=== PATIENT | female | born 1965 | race Caucasian/White ===

== ENCOUNTER 2018-04-13 08:16 | Outpatient (CLI) | payer BC ==
--- NOTE | 2018-04-13 13:35 | CT ---
CT ABDOMEN AND PELVIS WITH CONTRAST: CT ENTEROGRAPHY: CLINICAL HISTORY: History of Crohn disease. Abdominal pain. COMPARISON: No prior imaging comparison available. FINDINGS: There is evidence of hepatic steatosis and prior cholecystectomy. No focal splenic lesion or acute p ancreatic pathology. The adrenal glands are unremarkable. There is no hydronephrosis of the kidneys . Evaluation of the renal parenchyma is somewhat limited due to the phase of enhancement on the prov ided scans. There is mild scattered vascular disease. No free air or significant ascites. There is colonic diverticulosis. The fluid-filled small bowel reveals no evidence of abnormal disten tion. There is submucosal fat deposition involving the region of the terminal ileum and the cecum, i ndicative of sequela from prior inflammatory process. No discrete, acute bowel inflammation is ident ified. There are subtle areas of alveolar lucency of the imaged lung bases that suggest pulmonary em physema. Correlate clinically. No acute osseous pathology. IMPRESSION: 1. Submucosal fat deposition within the terminal small bowel and proximal colon, indicating sequela from prior inflammatory process. There is no discrete evidence of an acute inflammatory bowel proces s. There is no bowel obstruction or free air. 2. Colonic diverticulosis. 3. Additional details are described above. POS: [facility]
[2018-04-13] MEDS ORDERED: Iopamidol 370 76% 100 ML VIAL ONE (16:29)
== END 2018-04-13 08:17 | disposition home or self-care (01) ==
LOC: CT 08:16
PROVIDERS: ATTEND Internal Medicine Gastroenterology
DX: K56.699 Other intestinal obstruction unspecified as to partial versus complete obstruction (principal); K57.30 Diverticulosis of large intestine without perforation or abscess without bleeding; K63.89 Other specified diseases of intestine
CPT/HCPCS: 74177; 82565

== ENCOUNTER 2018-06-10 06:21 | Outpatient (CLI) | payer BC ==
[2018-06-10 11:15] LABS: #Basophils 0.1 thou/uL (0.0-0.2); #Eosinphils 0.2 thou/uL (0.0-0.7); #Lymphocytes 3.6 thou/uL (1.20-3.40); #Monocytes 0.7 thou/uL (0.11-0.59); #Neutrophils 4.7 thou/uL (1.40-6.50); %Basophils 1.2 % (0.0-1.0); %Eosinophils 2.1 % (0.0-10.0); %Monocytes 7.1 % (0.0-10.0); %Neutrophils 50.6 % (42.0-75.0); Hemoglobin 14.8 g/dL (12.0-16.0); Mean Corpuscular HGB CONC 33.9 g/dL (32.0-36.0); Mean Corpuscular Hemoglobin 32.5 pg (27.0-31.0); Mean Corpuscular Volume 95.8 fL (78.0-98.0); Mean Platelet Volume 7.1 fL (7.4-10.4); Platelet Count 388 thou/uL (130-400); RBC Distribution Width 11.1 % (11.5-14.5); Red Blood Cell (RBC) Count 4.57 mill/uL (4.20-5.40); White Blood Cell (WBC) Count 9.2 thou/uL (4.8-10.8)
[2018-06-10 11:34] LABS: Anion Gap 12 mmol/L (10-20); BUN (Urea Nitrogen) 5 mg/dL (9.8-20.1); Calc. Creatinine Clearance 0 mL/min (70-130); Calcium 9.2 mg/dL (7.8-10.44); Carbon Dioxide 27 mmol/L (22-29); Chloride 103 mmol/L (98-107); Estimated GFR-MDRD 81; Glucose 85 mg/dL (70-105); Potassium 3.7 mmol/L (3.5-5.1); Sodium 138 mmol/L (136-145)
[2018-06-10 12:14] LABS: Hemoglobin A1c 5.2 % (4.0-6.0)
== END 2018-06-10 06:22 | disposition home or self-care (01) ==
LOC: LABBT 06:21
PROVIDERS: ATTEND Surgery
DX: Z01.812 Encounter for preprocedural laboratory examination (principal); K50.90 Crohn's disease, unspecified, without complications
CPT/HCPCS: 80048; 83036; 85025

== ENCOUNTER 2018-06-10 10:00 | Inpatient (IN) | payer BC ==
[2018-06-10 10:56] VITALS: BMI 22.4
[2018-06-16] MEDS ORDERED: Midazolam HCl 2 mg/2 ml Vial ONE ×2 (07:33→09:28)
[2018-06-16] MEDS ORDERED: Fentanyl 100 MCG/2 ML VIAL ONE ×3 (07:33→12:09)
[2018-06-16] MEDS ORDERED: Dexamethasone 4 mg/ml Vial ONE (07:34)
[2018-06-16] MEDS ORDERED: CEFAZOLIN 2 GM/50 ML BAG ONE (07:48)
[2018-06-16] MEDS ORDERED: Lidocaine 1% (PF) 30 ML VIAL ONE (07:48)
[2018-06-16] MEDS ORDERED: Ondansetron HCl/PF 4 MG/2 ML Vial IVP PRN (11:19)
[2018-06-16] MEDS ORDERED: Promethazine HCl 25 MG/ML VIAL IM PRN ×2 (11:19→14:32)
[2018-06-16] MEDS ORDERED: Promethazine HCl 25 MG/ML VIAL SLOW IVP PRN (11:19)
[2018-06-16] MEDS ORDERED: Bupivacaine HCl 0.5%/Epinephrine 1:200,000/PF 30 ml Vial ONE (13:51)
[2018-06-16] MEDS ORDERED: hydrALAZINE 20 MG/ML VIAL SLOW IVP PRN (14:32)
[2018-06-16] MEDS ORDERED: Ondansetron PF 4 MG/2 ML Vial IVP PRN (14:32)
[2018-06-16] MEDS ORDERED: Fentanyl 100 MCG/2 ML VIAL SLOW IVP PRN ×2 (14:32)
[2018-06-16] MEDS ORDERED: Acetaminophen 1,000 MG in Premix Bag 1 BAG IVPB SCH (14:32)
[2018-06-16] MEDS ORDERED: Lidocaine 1% PF 5 ML VIAL ONE (14:42)
[2018-06-16] MEDS ORDERED: Dexamethasone 20 MG/5 ML VIAL ONE (14:42)
[2018-06-16] MEDS ORDERED: Ketorolac Tromethamine 30 MG/ML VIAL ONE (14:42)
[2018-06-16] MEDS ORDERED: Rocuronium Bromide 10 MG/ML (10ML VIAL) ONE (14:42)
[2018-06-16] MEDS ORDERED: Ondansetron PF 4 MG/2 ML Vial ONE (14:42)
[2018-06-16] MEDS ORDERED: PHENYLEPHRINE-NS 100 MCG/ML 10 ML SYRINGE ONE (14:42)
[2018-06-16] MEDS ORDERED: PROPOFOL 200 MG/20 ML VIAL ONE (14:42)
[2018-06-16] MEDS: D5 1/2 NS w/20 mEq KCL 1,000 ML IV SCH (15:24)
[2018-06-16] MEDS: Acetaminophen 1,000 MG in Premix Bag 1 BAG IVPB SCH ×2 (15:24→20:19)
[2018-06-16] MEDS: HYDROcodone/Acetaminophen 7.5/325 mg Tablet PO PRN (17:28)
[2018-06-16] MEDS: Famotidine 20 MG TAB PO SCH (20:18)
[2018-06-16] MEDS: Famotidine/PF 20 mg/2ml Vial SLOW IVP SCH (20:19)
[2018-06-16] MEDS: traZODone HCl 50 MG TAB PO SCH (20:19)
[2018-06-16] MEDS ORDERED: Enoxaparin Sodium 40 MG/0.4 ML SYRINGE SC SCH (21:00)
[2018-06-17] MEDS: Acetaminophen 1,000 MG in Premix Bag 1 BAG IVPB SCH ×4 (02:06→21:48)
[2018-06-17] MEDS: D5 1/2 NS w/20 mEq KCL 1,000 ML IV SCH (06:20)
[2018-06-17 06:51] LABS: Anion Gap 12 mmol/L (10-20); BUN (Urea Nitrogen) 14 mg/dL (9.8-20.1); Calc. Creatinine Clearance 77 mL/min (70-130); Calcium 8.4 mg/dL (7.8-10.44); Carbon Dioxide 23 mmol/L (22-29); Chloride 105 mmol/L (98-107); Estimated GFR-MDRD 89; Glucose 121 mg/dL (70-105); Sodium 136 mmol/L (136-145)
[2018-06-17 07:43] LABS: Hemoglobin 11.4 g/dL (12.0-16.0); Mean Corpuscular HGB CONC 34.2 g/dL (32.0-36.0); Mean Corpuscular Hemoglobin 33.1 pg (27.0-31.0); Mean Corpuscular Volume 96.7 fL (78.0-98.0); Mean Platelet Volume 7.5 fL (7.4-10.4); Platelet Count 325 thou/uL (130-400); Red Blood Cell (RBC) Count 3.46 mill/uL (4.20-5.40); White Blood Cell (WBC) Count 23.5 thou/uL (4.8-10.8)
[2018-06-17 07:45] LABS: Band 27 % (5-11); Lymphocytes 6 % (21-51); MDiff Complete? YES; Neutrophil 62 % (42-75); RBC Morphology Normal; Reactive Lymphocytes 5 % (0-10)
[2018-06-17] MEDS: Famotidine 20 MG TAB PO SCH ×2 (08:50→20:20)
[2018-06-17] MEDS: Escitalopram Oxalate 20 mg Tablet PO SCH (08:50)
[2018-06-17] MEDS: Famotidine/PF 20 mg/2ml Vial SLOW IVP SCH ×2 (11:40→20:59)
[2018-06-17] MEDS: HYDROcodone/Acetaminophen 7.5/325 mg Tablet PO PRN (12:38)
[2018-06-17] MEDS ORDERED: HYDROcodone/Acetaminophen 7.5/325 mg Tablet PO PRN (13:00)
--- NOTE | 2018-06-17 14:15 | PRG ---
DATE OF SERVICE: 06/17/2018 SUBJECTIVE: Ms. Kwan is having nausea this afternoon. She has had a couple of bloody bowel movements. She is complaining of abdominal pain. OBJECTIVE: VITAL SIGNS: Blood pressure is 117/78, pulse 106, respirations 16. She is afebrile, although she says she feels hot. She has had multiple voids, few small bowel movements with blood in them. ABDOMEN: Her abdomen is soft. Her wound is healing well. She has occasional bowel sounds, appropriately tender. LABORATORY DATA: Her white blood cell count today is 23, hemoglobin is 11, platelet count is 325. She had 27 bands this morning, creatinine 0.69. ASSESSMENT: Postop day #1 ileocecectomy. PLAN: I encouraged her to slow down on the liquids, provided WASH RACK OPERATOR for pain control. Held Lovenox tonight. I suspect her blood per rectum will improve. Job ID: [id number]
[2018-06-17] MEDS ORDERED: Ketorolac Tromethamine 30 MG/ML VIAL IVP SCH (15:45)
[2018-06-17] MEDS: fentaNYL Citrate/PF 2,000 MCG in Sodium Chloride 0.9% 60 ML IV PRN (16:06)
[2018-06-17] MEDS: traZODone HCl 50 MG TAB PO SCH (20:20)
--- NOTE | 2018-06-17 21:18 | OP ---
DATE OF PROCEDURE: 06/16/2018 PREOPERATIVE DIAGNOSIS: Crohn's disease with stricture with dysplastic changes on biopsy. POSTOPERATIVE DIAGNOSIS: Crohn's disease with stricture with dysplastic changes on biopsy. PROCEDURE PERFORMED: Open ileocecectomy. ANESTHESIA: General. ESTIMATED BLOOD LOSS: Minimal. COMPLICATIONS: None. FINDINGS: Distal small intestine approximately the last 10 cm had Crohn's type changes and palpable stricture. DESCRIPTION OF PROCEDURE: The patient was taken to the operating room and laid supine on the operating room table. After general anesthetic was obtained, a Sanders was placed. The abdomen was prepped and draped in a sterile fashion. Midline incision was made. Cautery was used to dissect down into the abdominal cavity. Bookwalter retractor was placed. The right colon was mobilized along the white line of Toldt. The ureter was found excluded from the dissection as was the duodenum. There were Crohn's type changes in the distal-most ileum approximate last 10 cm with fat creeping. Just proximal to this, a CONOR 75 stapler was fired across the small intestine. There were no evidence of Crohn's changes in the cecum and the ascending colon. The CONOR 75 stapler was fired across the ascending colon. The resultant mesentery was taken using Yaquelin clamps and silk ties. The small bowel was brought together against ascending colon in an antimesenteric fashion. Enterotomy was made on the end of each and the [id number] anastomosis was performed using CONOR 75. The common enterotomy was closed using running Vicryl suture in 2 layers. A crotch stitch was placed. The mesenteric defect was closed. The abdomen was irrigated. All instrument counts were correct. There was no evidence of bleeding or injury to any intraabdominal structures. Midline fascia was closed using #1 PDS from top to bottom and tied in the middle. Subcutaneous tissues were irrigated and closed using 3-0 Vicryl, 4-0 Monocryl, and Dermabond. The patient was sent to Recovery in stable condition. All instrument counts, needle counts, and lap counts are correct. Job ID: [id number]
[2018-06-17] MEDS ORDERED: Ketorolac Tromethamine 30 MG/ML VIAL IVP PRN (21:45)
[2018-06-18] MEDS: D5 1/2 NS w/20 mEq KCL 1,000 ML IV SCH ×2 (03:08→18:43)
[2018-06-18] MEDS: Acetaminophen 1,000 MG in Premix Bag 1 BAG IVPB SCH ×3 (03:47→18:42)
[2018-06-18 06:15] LABS: #Eosinphils 0.1 thou/uL (0.0-0.7); #Lymphocytes 1.9 thou/uL (1.20-3.40); #Monocytes 0.9 thou/uL (0.11-0.59); #Neutrophils 17.3 thou/uL (1.40-6.50); %Eosinophils 0.3 % (0.0-10.0); %Lymphocytes 9.5 % (21.0-51.0); %Monocytes 4.5 % (0.0-10.0); %Neutrophils 85.7 % (42.0-75.0); Hemoglobin 11.1 g/dL (12.0-16.0); Mean Corpuscular HGB CONC 33.7 g/dL (32.0-36.0); Mean Platelet Volume 7.6 fL (7.4-10.4); Platelet Count 304 thou/uL (130-400); RBC Distribution Width 11.3 % (11.5-14.5); Red Blood Cell (RBC) Count 3.37 mill/uL (4.20-5.40); White Blood Cell (WBC) Count 20.2 thou/uL (4.8-10.8)
[2018-06-18 06:33] LABS: Anion Gap 9 mmol/L (10-20); BUN (Urea Nitrogen) 16 mg/dL (9.8-20.1); Calc. Creatinine Clearance 81 mL/min (70-130); Calcium 8.6 mg/dL (7.8-10.44); Carbon Dioxide 26 mmol/L (22-29); Chloride 103 mmol/L (98-107); Estimated GFR-MDRD Greater than 90; Glucose 121 mg/dL (70-105); Potassium 4.1 mmol/L (3.5-5.1); Sodium 134 mmol/L (136-145)
--- NOTE | 2018-06-18 09:12 | PRG ---
DATE OF SERVICE: 06/18/2018 Ms. Kwan is postop day 2, ileocecectomy for Crohn disease. She has had occasional nausea and small amounts of vomit. She has a cough. She is not getting out of bed much. She has a LEATHER SORTER that is controlling her abdominal pain better. Her pulse is 105, respirations are 20, O2 saturation is 92% on 2.5 L, temperature 97.9, blood pressure is fine. Multiple voids. Total of 450 emesis for the last 24 hours. Her abdomen is soft. It is distended. There are occasional bowel sounds. Midline wound is healing well. There is slight ecchymosis. White blood cell count today is 20, hemoglobin 11, platelet count is 304. Differential is normal today, the differential shows no bands today. Creatinine 0.65, sodium 134. ASSESSMENT: 1. Postop day 2 ileocecectomy, borderline sats, concern for maybe some volume overload. We will treat with Lasix, lower IV fluids. 2. Persistent expected postop ileus. If continues to vomit, we will place NG tube. 3. History of bright red blood per rectum, likely bleeding from staple line, has pretty much resolved. Hemoglobin is stable. I held her Lovenox. Job ID: [id number]
[2018-06-18] MEDS: Escitalopram Oxalate 20 mg Tablet PO SCH (09:49)
[2018-06-18] MEDS: Famotidine/PF 20 mg/2ml Vial SLOW IVP SCH ×2 (09:49→22:33)
[2018-06-18] MEDS: Famotidine 20 MG TAB PO SCH ×2 (09:50→22:31)
[2018-06-18] MEDS: Furosemide 20 MG/2 ML VIAL SLOW IVP SCH (09:50)
--- NOTE | 2018-06-18 13:01 | RAD ---
PORTABLE CHEST: HISTORY: Assess for TB. COMPARISON: 12/05/2009. FINDINGS: Increased interstitial markings in the left lung base and mild increased interstitial markings in the right lung base. This is new when compared to the prior exam of 2009. Vascular markings are normal. Mild hypoexpansion suggests changes of COPD. Heart size normal. IMPRESSION: Interstitial prominence in the lung bases may be chronic. Part of this may be due to crowding of jeb g markings due to early emphysematous change in the upper lung kennedy. Recommend short-term followup . Correlation with noncontrast chest CT may be of benefit as indicated. POS: [facility]
[2018-06-18] MEDS: traZODone HCl 50 MG TAB PO SCH (22:31)
[2018-06-19 06:08] LABS: #Eosinphils 0.1 thou/uL (0.0-0.7); #Lymphocytes 1.5 thou/uL (1.20-3.40); #Monocytes 1.1 thou/uL (0.11-0.59); #Neutrophils 8.9 thou/uL (1.40-6.50); %Eosinophils 0.7 % (0.0-10.0); %Lymphocytes 13.1 % (21.0-51.0); %Monocytes 9.8 % (0.0-10.0); %Neutrophils 76.3 % (42.0-75.0); Mean Corpuscular HGB CONC 33.7 g/dL (32.0-36.0); Mean Corpuscular Hemoglobin 33.1 pg (27.0-31.0); Mean Corpuscular Volume 98.1 fL (78.0-98.0); Mean Platelet Volume 7.6 fL (7.4-10.4); Platelet Count 331 thou/uL (130-400); RBC Distribution Width 11.2 % (11.5-14.5); Red Blood Cell (RBC) Count 3.31 mill/uL (4.20-5.40); White Blood Cell (WBC) Count 11.6 thou/uL (4.8-10.8)
[2018-06-19] MEDS: D5 1/2 NS w/20 mEq KCL 1,000 ML IV SCH ×2 (06:14→17:27)
[2018-06-19 06:29] LABS: Anion Gap 9 mmol/L (10-20); BUN (Urea Nitrogen) 15 mg/dL (9.8-20.1); Calc. Creatinine Clearance 79 mL/min (70-130); Calcium 8.9 mg/dL (7.8-10.44); Carbon Dioxide 30 mmol/L (22-29); Chloride 101 mmol/L (98-107); Estimated GFR-MDRD Greater than 90; Glucose 125 mg/dL (70-105); Potassium 4.5 mmol/L (3.5-5.1); Sodium 135 mmol/L (136-145)
[2018-06-19] MEDS: Furosemide 20 MG/2 ML VIAL SLOW IVP SCH ×2 (08:44→08:52)
[2018-06-19] MEDS: Famotidine/PF 20 mg/2ml Vial SLOW IVP SCH ×2 (08:45→21:45)
[2018-06-19] MEDS: Famotidine 20 MG TAB PO SCH ×2 (09:02→21:45)
[2018-06-19] MEDS: Escitalopram Oxalate 20 mg Tablet PO SCH (09:02)
[2018-06-19] MEDS ORDERED: Acetaminophen 1,000 MG in Premix Bag 1 BAG IVPB PRN (09:30)
--- NOTE | 2018-06-19 09:46 | PRG ---
DATE OF SERVICE: 06/19/2018 SUBJECTIVE: Ms. Kwan states she feels slightly improved today. She still has not ambulated in the manuel. She had a couple of bowel movements yesterday, not really passing much gas. OBJECTIVE: VITAL SIGNS: She remains slightly tachy with a pulse 103, blood pressure 116/74, respirations 20, she is afebrile. Multiple voids. Gastric draining 700 overnight. ABDOMEN: Slightly distended with decreasing bowel sounds throughout. Midline incision seen well without infection. LABORATORY DATA: White blood cell count is 11, hemoglobin 11, platelet count is 331. No left shift or bandemia today. Sodium 135, potassium 4.5, and creatinine 0.67. ASSESSMENT: Postop day #3, ileocecectomy, slow improvement. Encouraged ambulation. She needs to be out in the manuel. I do think that her lack of mobility is contributing to her persistent expected postop ileus. We will keep the NG tube in now and reassess later today for better bowel sounds and less NG output. Job ID: [id number]
[2018-06-19] MEDS: traZODone HCl 50 MG TAB PO SCH (21:46)
[2018-06-19] MEDS ORDERED: Furosemide 20 MG/2 ML VIAL SLOW IVP SCH (23:00)
[2018-06-20] MEDS: D5 1/2 NS w/20 mEq KCL 1,000 ML IV SCH (04:51)
[2018-06-20 06:09] LABS: #Eosinphils 0.1 thou/uL (0.0-0.7); #Lymphocytes 1.4 thou/uL (1.20-3.40); #Monocytes 1.4 thou/uL (0.11-0.59); #Neutrophils 7.8 thou/uL (1.40-6.50); %Basophils 0.2 % (0.0-1.0); %Eosinophils 0.8 % (0.0-10.0); %Lymphocytes 12.9 % (21.0-51.0); %Monocytes 12.6 % (0.0-10.0); %Neutrophils 73.5 % (42.0-75.0); Hemoglobin 11.2 g/dL (12.0-16.0); Mean Corpuscular HGB CONC 34.2 g/dL (32.0-36.0); Mean Corpuscular Hemoglobin 33.5 pg (27.0-31.0); Mean Corpuscular Volume 97.9 fL (78.0-98.0); Mean Platelet Volume 7.7 fL (7.4-10.4); Platelet Count 392 thou/uL (130-400); RBC Distribution Width 11.1 % (11.5-14.5); Red Blood Cell (RBC) Count 3.35 mill/uL (4.20-5.40); White Blood Cell (WBC) Count 10.7 thou/uL (4.8-10.8)
[2018-06-20 06:20] LABS: Anion Gap 12 mmol/L (10-20); BUN (Urea Nitrogen) 9 mg/dL (9.8-20.1); Calc. Creatinine Clearance 84 mL/min (70-130); Calcium 9.2 mg/dL (7.8-10.44); Carbon Dioxide 33 mmol/L (22-29); Chloride 95 mmol/L (98-107); Estimated GFR-MDRD Greater than 90; Glucose 118 mg/dL (70-105); Potassium 4.2 mmol/L (3.5-5.1); Sodium 136 mmol/L (136-145)
[2018-06-20] MEDS: fentaNYL Citrate/PF 2,000 MCG in Sodium Chloride 0.9% 60 ML IV PRN (06:33)
[2018-06-20 07:55] LABS: Base Excess (BEa) 3.2 mEq/L (-2.0 to +3.0); CO2 Tension 50.1 mmHg (35.0-45.0); Calcium, Ionized 1.16 mmol/L (1.12-1.30); Carboxyhemoglobin (COHb) 0.7 gm% (0.0-3.0); Hemoglobin (Hb) 11.5 g/dL (12.0-16.0); Potassium - ABG Lab 4.11 mmol/L (3.70-5.30); pH, Arterial 7.38 (7.35-7.45)
[2018-06-20 07:57] LABS: O2 Tension (PaO2) 53.5 mmHg (80.0-100.0)
[2018-06-20 07:58] LABS: ALV-art Gradient 112.035 (0-20); Puncture Site RR
[2018-06-20] MEDS: Escitalopram Oxalate 20 mg Tablet PO SCH (08:42)
[2018-06-20] MEDS: Famotidine 20 MG TAB PO SCH ×2 (08:42→20:55)
[2018-06-20] MEDS: Famotidine/PF 20 mg/2ml Vial SLOW IVP SCH ×2 (08:49→20:55)
--- NOTE | 2018-06-20 09:13 | RAD ---
FRONTAL VIEW CHEST: Comparison: 06-18-18 Indication: Shortness of breath. FINDINGS: There is relative lucency at the upper lung zones. This indicates pulmonary emphysema. No lobar conso lidation, effusion, or pneumothorax. Cardiac silhouette is normal in size. IMPRESSION: Findings indicate COPD with relative lucency at the upper lung zones bilaterally, similar in appearan ce. POS: [facility]
--- NOTE | 2018-06-20 09:26 | PDOC.GSPN ---
Surgery Progress Note: Subj - Subjective Narrative: Patient more tachypneic, lower sats this am. Consulted hospitalist. No nausea. She had two bowel movements yesterday Surgery Progress Note: Obj - Vital signs Vital signs: Vital Signs - Most Recent Temp Pulse Resp BP Pulse Ox 98.0 F 97 16 138/84 96 06/20/18 08:08 06/20/18 08:08 06/20/18 08:08 06/20/18 08:08 06/20/18 08:08 - Physical Exam General: no distress Cardiovascular: regular rate and rhythm Respiratory: coarse breath sounds Abdomen: soft (minimal distended. Active bowel sounds) Wound: healing well Surgery Progress Note: Results - Labs Result Diagrams: 06/20/18 05:32 06/20/18 05:32 Lab results: Laboratory Results - last 24 hr 06/20/18 06/20/18 06/20/18 05:32 05:32 07:42 WBC 10.7 RBC 3.35 L Hgb 11.2 L Hct 32.8 L MCV 97.9 MCH 33.5 H MCHC 34.2 RDW 11.1 L Plt Count 392 MPV 7.7 Neutrophils % 73.5 Lymphocytes % 12.9 L Monocytes % 12.6 H Eosinophils % 0.8 Basophils % 0.2 Neutrophils # 7.8 H Lymphocytes # 1.4 Monocytes # 1.4 H Eosinophils # 0.1 Basophils # 0.0 Specimen Type ARTERIAL Puncture Site RR Bicarbonate Actual 29.0 H ABG pH 7.38 ABG pCO2 50.1 H ABG pO2 53.5 L* ABG O2 Sat Calc/Alex 87.4 L ABG O2 Content 14.0 L ABG Base Excess 3.2 H ABG Hematocrit 34.0 L ABG Hemoglobin 11.5 L ABG Oxyhemoglobin 86.5 L ABG Carboxyhemoglobin 0.7 ABG Methemoglobin 0.30 ABG Deoxyhemoglobin 12.5 H Rodolfo Test POSITIVE A-a O2 Gradient 112.035 H Ionized Calcium 1.16 Mode of Support 3LNC Inspired O2 32 Sodium 136 132 L Potassium 4.2 4.11 Chloride 95 L 95 L Carbon Dioxide 33 H Anion Gap 12 BUN 9 L Creatinine 0.63 Estimated GFR (MDRD) Greater than 90 Glucose 118 H Calcium 9.2 Surgery Progress Note: A/P - Problem (1) Crohn's disease Current Visit: No Code(s): K50.90 - CROHN'S DISEASE, UNSPECIFIED, WITHOUT COMPLICATIONS Status: Acute Assessment and Plan: s/p ileo cecectomy. Will restart liquid diet, she has active bowel sounds and having bowel movements. WBC normal (2) Respiratory distress Current Visit: Yes Code(s): R06.03 - ACUTE RESPIRATORY DISTRESS Status: Acute Assessment and Plan: Likely secondary to underlying COPD. Appreciated hospitalist assistance in her care - Plan Plan: Full liquid diet -Appreciate hospitalist assistance -Mobilize more when breathing improves
[2018-06-20] MEDS: Benzonatate 100 MG CAP PO SCH ×3 (09:28→20:54)
[2018-06-20] MEDS: guaiFENesin ER 600 MG TAB PO SCH ×2 (09:28→20:54)
[2018-06-20] MEDS ORDERED: traMADol HCl 50 MG TAB PO PRN (09:30)
[2018-06-20] MEDS ORDERED: D5 1/2 NS w/20 mEq KCL 1,000 ML IV SCH (09:30)
--- NOTE | 2018-06-20 14:17 | PDOC.PN ---
- Subjective Encounter Start Date: 06/20/18 Encounter Start Time: 08:20 Subjective: has sob and wheezing -: no chest pain - Objective MAR Reviewed: Yes Vital Signs & Weight: Vital Signs (12 hours) Temp Pulse Resp BP Pulse Ox 06/20/18 12:02 97.8 F 109 H 15 122/76 94 L 06/20/18 11:06 111 H 20 06/20/18 08:08 98.0 F 97 16 138/84 96 06/20/18 08:03 96 06/20/18 07:28 101 H 22 H 96 06/20/18 04:21 97.9 F 107 H 20 123/77 96 Weight Weight 115 lb I&O: 06/19/18 06/20/18 06/21/18 06:59 06:59 06:59 Intake Total 840 840 Output Total 110 1000 1100 Balance -110 -160 -260 Result Diagrams: 06/20/18 05:32 06/20/18 05:32 Phys Exam - Physical Examination HEENT: PERRLA, sclera anicteric dry mucosa Neck: no JVD, supple Respiratory: no rales, wheezing present Cardiovascular: RRR, no significant murmur Gastrointestinal: soft, no distention surgical site is clean Musculoskeletal: no edema, pulses present Neurological: non-focal, moves all 4 limbs Psychiatric: A&O x 3 Dx/Plan (1) Acute respiratory failure with hypoxia Code(s): J96.01 - ACUTE RESPIRATORY FAILURE WITH HYPOXIA Status: Acute (2) COPD exacerbation Code(s): J44.1 - CHRONIC OBSTRUCTIVE PULMONARY DISEASE W (ACUTE) EXACERBATION Status: Acute (3) GERD (gastroesophageal reflux disease) Code(s): K21.9 - GASTRO-ESOPHAGEAL REFLUX DISEASE WITHOUT ESOPHAGITIS Status: Chronic Qualifiers: Esophagitis presence: esophagitis presence not specified Qualified Code(s) : K21.9 - Gastro-esophageal reflux disease without esophagitis (4) Depression Code(s): F32.9 - MAJOR DEPRESSIVE DISORDER, SINGLE EPISODE, UNSPECIFIED Status : Chronic Qualifiers: Depression Type: major depressive disorder Active/Remission status: in full remission (5) Crohn's disease Code(s): K50.90 - CROHN'S DISEASE, UNSPECIFIED, WITHOUT COMPLICATIONS Status: Acute Comment: s/p ileocecectomy for stricture and dyslplastic changes on biopsy - Plan will start her solumedrol, duonebs empiric levaquin -: is on clear liq diet -: suggest gentle iv hydration (has recieved lasix prior 2 days) -: has laryngits/hoarseness due to intubation for surgery, ?racemic epinephrin -: will obtain pulm consultation with potential for worsoning due to abd surge * . oob to chair and amb as tolerated, i.spirometry as tolerated. Was on Humira prior to surgery for Crohn's Review of Systems - Medications/Allergies Allergies/Adverse Reactions: Allergies Allergy/AdvReac Type Severity Reaction Status Date / Time No Known Drug Allergies Allergy Verified 06/10/18 10:23 Medications: Current Medications Albuterol/Ipratropium (Duoneb) 3 ml NEB [id number] [facility] Last Admin: 06/20/18 11:06 Dose: 3 ml Benzonatate (Tessalon) 100 mg PO TID [facility] Last Admin: 06/20/18 09:28 Dose: 100 mg Escitalopram Oxalate (Lexapro) 20 mg PO DAILY [facility] Last Admin: 06/20/18 08:42 Dose: 20 mg Famotidine (Pepcid) 20 mg PO Q12HR [facility] Last Admin: 06/20/18 08:42 Dose: 20 mg Famotidine (Pepcid) 20 mg SLOW IVP Q12HR [facility] Last Admin: 06/20/18 08:49 Dose: Not Given Guaifenesin (Mucinex) 600 mg PO Q12HR [facility] Last Admin: 06/20/18 09:28 Dose: 600 mg Hydralazine HCl (Apresoline) 10 mg SLOW IVP Q4H PRN PRN Reason: SBP > 170 or DBP > 100 Levofloxacin 500 mg/ Device 100 mls @ 100 mls/hr IVPB Q24HR [facility] Last Admin: 06/20/18 09:28 Dose: 100 mls Acetaminophen 1,000 mg/ Device 100 mls @ 400 mls/hr IVPB Q6H PRN PRN Reason: Fever/Mild Pain Stop: 06/21/18 09:31 Potassium Chloride/Dextrose/Sod Cl (D5 1/2 Ns W/20 Meq Kcl) 1,000 mls @ 0 mls/ hr IV .Q0M [facility] Last Admin: 06/20/18 11:55 Dose: 1,000 mls Methylprednisolone Sodium Succinate (Solu-Medrol) 40 mg IVP Q6HR [facility] Last Admin: 06/20/18 11:12 Dose: 40 mg Ondansetron HCl (Zofran) 4 mg IVP Q6H PRN PRN Reason: Nausea/Vomiting Last Admin: 06/18/18 03:08 Dose: 4 mg Promethazine HCl (Phenergan) 12.5 mg IM Q4H PRN PRN Reason: Nausea/Vomiting Sodium Chloride (Flush - Normal Saline) 10 ml IVF PRN PRN PRN Reason: Saline Flush Tramadol HCl (Ultram) 50 mg PO Q6H PRN PRN Reason: Mild Pain (1-3) Tramadol HCl (Ultram) 100 mg PO Q6H PRN PRN Reason: Moderate Pain (4-6) Trazodone HCl (Desyrel) 50 mg PO HS [facility] Last Admin: 06/19/18 21:46 Dose: Not Given
[2018-06-20] MEDS: traMADol HCl 50 MG TAB PO PRN ×2 (14:19→20:50)
[2018-06-20] MEDS: Acetaminophen 1,000 MG in Premix Bag 1 BAG IVPB PRN ×2 (14:25→20:56)
[2018-06-20] MEDS ORDERED: Arformoterol 15 MCG/2 ML NEB NEB SCH (20:00)
[2018-06-20] MEDS: traZODone HCl 50 MG TAB PO SCH (20:54)
--- NOTE | 2018-06-21 03:33 | CON ---
DATE OF CONSULTATION: 06/20/2018 HISTORY OF PRESENT ILLNESS: Brigida Kwan is a pleasant 52-year-old female who has Crohn disease. On June 17, she underwent an open ileocecectomy. I was consulted for COPD. She has no history of a prior diagnosis of chronic obstructive pulmonary disease. She has been a smoker up until a day prior to admission to the hospital. She denies being short of breath. Her only complaint is persistent nausea. PAST MEDICAL HISTORY: Remarkable for; 1. According to old records, latent TB. She did not volunteer this history. 2. History of Crohn disease. 3. History of sinus surgery. 4. History of cholecystectomy. 5. History of D and C in the past. ALLERGIES: SHE HAS NO REPORTED DRUG ALLERGIES. FAMILY HISTORY: Positive for cancer and hypertension. SOCIAL HISTORY: She is a pack-a-day smoker. She is not a daily drinker. She has two children. REVIEW OF SYSTEMS: Ten point review of systems complted, otherwise negative. PHYSICAL EXAMINATION: GENERAL: I was consulted for COPD. VITAL SIGNS: She is afebrile. Heart rate is 100, respiratory rate 16, oximetry is 100% on 2 L, blood pressure 143/74. EYES: Pupils are equal. Sclerae are anicteric. HEENT: pupils react. NECK: Supple. No lymphadenopathy. Trachea is midline. LUNGS: Clear when I evaluated. HEART: Regular rhythm. S1 and S2 are normal. ABDOMEN: Soft, slightly distended, minimally tender. IMAGING: Chest radiograph shows no infiltrates. Interval changes on a chest film suggestive of apical bullous disease. IMPRESSION: Chronic obstructive pulmonary disease? She will need pulmonary function tests at a later date. She does not like the ipratropium and albuterol nebulizer treatments, and thinks that they may be making her feel more nauseated. We will switch her to Brovana twice a day. We can go ahead and decrease her doses of her IV steroids. It would be nice to get her to the lowest dose possible to facilitate wound healing. We will follow the other physicians caring for her. This was a 70-minute consult, with greater than 50% of the time was spent on the unit coordinating care. Job ID: [id number] [facility]
[2018-06-21] MEDS: traMADol HCl 50 MG TAB PO PRN ×3 (04:00→20:22)
[2018-06-21] MEDS: Acetaminophen 1,000 MG in Premix Bag 1 BAG IVPB PRN (04:01)
[2018-06-21] MEDS: Arformoterol 15 MCG/2 ML NEB NEB SCH ×2 (07:31→19:24)
--- NOTE | 2018-06-21 07:34 | PRG ---
DATE OF SERVICE: 06/21/2018 SUBJECTIVE: Ms. Kwan is doing well. Her breathing is improved. She tolerated the full liquid diet. Her nausea has resolved. She ambulated twice yesterday. Her shortness of breath is improved. OBJECTIVE: GENERAL: She is afebrile. VITAL SIGNS: Are stable. ABDOMEN: Soft, less distended with active bowel sounds. Wounds are healing well. There are some mild ecchymoses. ASSESSMENT: Postop ileocecectomy with postop respiratory difficulties, now improved. PLAN: Continue to mobilize. Advance to GI soft diet. Appreciate Medicine and Pulmonary consults. Hopefully home in the next few days, if her breathing is further improved. Job ID: [id number]
[2018-06-21] MEDS: Benzonatate 100 MG CAP PO SCH ×3 (08:06→20:19)
[2018-06-21] MEDS: guaiFENesin ER 600 MG TAB PO SCH ×2 (08:06→20:19)
[2018-06-21] MEDS: Famotidine 20 MG TAB PO SCH ×2 (08:06→20:19)
[2018-06-21] MEDS: Escitalopram Oxalate 20 mg Tablet PO SCH (08:06)
[2018-06-21] MEDS: Famotidine/PF 20 mg/2ml Vial SLOW IVP SCH ×2 (08:07→20:19)
--- NOTE | 2018-06-21 09:49 | PRG ---
DATE OF SERVICE: 06/21/2018 SUBJECTIVE: Ms. Kwan says she is feeling better today. She likes the Brovana. She feels like it is helping. She is not as nervous as she was yesterday. OBJECTIVE: VITAL SIGNS: She is afebrile. Heart rate 92, respiratory rate 16, oximetry is 94% on 2 L, blood pressure 121/78. LUNGS: Clear. HEART: Regular rhythm. ABDOMEN: Soft. IMPRESSION: 1. Probable chronic obstructive pulmonary disease, the severity of which is yet to be quantitated. 2. Status post abdominal surgery with an ileocecectomy. 3. 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 4. Crohn's disease. 5. History of cholecystectomy. 6. Ongoing tobacco use up until this admission. She says she is done with smoking. We will continue Brovana. Her antimicrobial therapy can be adjusted, the surgery feels appropriate. Her steroid dosing is decreased and I probably decreases some more tomorrow. She should not require stress dose steroids at this time. It is unclear to me at this point, who follows her Crohn's disease. Job ID: [id number]
--- NOTE | 2018-06-21 12:02 | PDOC.PN ---
- Subjective Encounter Start Date: 06/21/18 Encounter Start Time: 11:15 Subjective: breathing better, has amb around 250ft - Objective MAR Reviewed: Yes Vital Signs & Weight: Vital Signs (12 hours) Temp Pulse Resp BP Pulse Ox 06/21/18 08:29 98.0 F 92 16 121/78 94 L 06/21/18 07:33 90 L 06/21/18 07:31 91 20 90 L 06/21/18 04:00 98.1 F 104 H 18 116/73 95 Weight Weight 115 lb I&O: 06/20/18 06/21/18 06/22/18 06:59 06:59 06:59 Intake Total 840 2440 Output Total 1000 3000 Balance -160 -560 Result Diagrams: 06/20/18 05:32 06/20/18 05:32 Phys Exam - Physical Examination HEENT: PERRLA, moist MMs Neck: no JVD, supple Respiratory: no wheezing, no rales rhonchi+ Cardiovascular: RRR, no significant murmur Gastrointestinal: soft, no distention, positive bowel sounds surg scar is clean Musculoskeletal: no edema, pulses present Neurological: non-focal, moves all 4 limbs Psychiatric: normal affect, A&O x 3 Dx/Plan (1) Acute respiratory failure with hypoxia Code(s): J96.01 - ACUTE RESPIRATORY FAILURE WITH HYPOXIA Status: Acute (2) COPD exacerbation Code(s): J44.1 - CHRONIC OBSTRUCTIVE PULMONARY DISEASE W (ACUTE) EXACERBATION Status: Acute (3) GERD (gastroesophageal reflux disease) Code(s): K21.9 - GASTRO-ESOPHAGEAL REFLUX DISEASE WITHOUT ESOPHAGITIS Status: Chronic Qualifiers: Esophagitis presence: esophagitis presence not specified Qualified Code(s) : K21.9 - Gastro-esophageal reflux disease without esophagitis (4) Depression Code(s): F32.9 - MAJOR DEPRESSIVE DISORDER, SINGLE EPISODE, UNSPECIFIED Status : Chronic Qualifiers: Depression Type: major depressive disorder Active/Remission status: in full remission (5) Crohn's disease Code(s): K50.90 - CROHN'S DISEASE, UNSPECIFIED, WITHOUT COMPLICATIONS Status: Acute Comment: s/p ileocecectomy for stricture and dyslplastic changes on biopsy - Plan hemostable -: on nasal canula, still has some hoarseness due to intubation -: levaquin, brovan neb, solumedrol -: is on soft diet, passing flatus from last night -: to amb as tolerated, i.spirometry * . Review of Systems - Medications/Allergies Allergies/Adverse Reactions: Allergies Allergy/AdvReac Type Severity Reaction Status Date / Time No Known Drug Allergies Allergy Verified 06/10/18 10:23 Medications: Current Medications Arformoterol Tartrate (Brovana) 15 mcg NEB BID-RT [facility] Last Admin: 06/21/18 07:31 Dose: 15 mcg Benzonatate (Tessalon) 100 mg PO TID [facility] Last Admin: 06/21/18 08:06 Dose: 100 mg Escitalopram Oxalate (Lexapro) 20 mg PO DAILY [facility] Last Admin: 06/21/18 08:06 Dose: 20 mg Famotidine (Pepcid) 20 mg PO Q12HR [facility] Last Admin: 06/21/18 08:06 Dose: 20 mg Famotidine (Pepcid) 20 mg SLOW IVP Q12HR [facility] Last Admin: 06/21/18 08:07 Dose: Not Given Guaifenesin (Mucinex) 600 mg PO Q12HR [facility] Last Admin: 06/21/18 08:06 Dose: 600 mg Hydralazine HCl (Apresoline) 10 mg SLOW IVP Q4H PRN PRN Reason: SBP > 170 or DBP > 100 Levofloxacin 500 mg/ Device 100 mls @ 100 mls/hr IVPB Q24HR [facility] Last Admin: 06/21/18 08:06 Dose: 100 mls Methylprednisolone Sodium Succinate (Solu-Medrol) 20 mg IVP Q12HR [facility] Last Admin: 06/21/18 08:04 Dose: 20 mg Ondansetron HCl (Zofran) 4 mg IVP Q6H PRN PRN Reason: Nausea/Vomiting Last Admin: 06/18/18 03:08 Dose: 4 mg Promethazine HCl (Phenergan) 12.5 mg IM Q4H PRN PRN Reason: Nausea/Vomiting Sodium Chloride (Flush - Normal Saline) 10 ml IVF PRN PRN PRN Reason: Saline Flush Tramadol HCl (Ultram) 50 mg PO Q6H PRN PRN Reason: Mild Pain (1-3) Tramadol HCl (Ultram) 100 mg PO Q6H PRN PRN Reason: Moderate Pain (4-6) Last Admin: 06/21/18 11:08 Dose: 100 mg Trazodone HCl (Desyrel) 50 mg PO [facility] Last Admin: 06/20/18 20:54 Dose: 50 mg
[2018-06-21] MEDS: traZODone HCl 50 MG TAB PO SCH (20:19)
[2018-06-22] MEDS: Arformoterol 15 MCG/2 ML NEB NEB SCH ×2 (06:28→18:31)
[2018-06-22] MEDS: Benzonatate 100 MG CAP PO SCH ×3 (08:26→21:04)
[2018-06-22] MEDS: Famotidine 20 MG TAB PO SCH ×2 (08:26→21:04)
[2018-06-22] MEDS: Escitalopram Oxalate 20 mg Tablet PO SCH (08:26)
[2018-06-22] MEDS: Famotidine/PF 20 mg/2ml Vial SLOW IVP SCH ×2 (08:27→21:04)
[2018-06-22] MEDS: guaiFENesin ER 600 MG TAB PO SCH ×2 (08:29→21:05)
--- NOTE | 2018-06-22 10:49 | PRG ---
DATE OF SERVICE: 06/22/2018 SUBJECTIVE: Ms. Kwan is doing better. Her breathing is improved. She tolerated the GI soft diet. She has had a bowel movement. OBJECTIVE: She is afebrile. Vital signs are stable. Her abdomen is soft. She has active bowel sounds. Her wound is healing well. No infection. 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 ASSESSMENT: Ileocecectomy for malignancy to terminal ileum. PLAN: 1. Fortunately, it appears this is an early malignancy, expect complete recovery. I do not expect any long-term. I do not expect that she has a high risk of metastatic disease or recurrence. However, after discharge, will have her seen by the oncologist. She does not need inpatient Oncology consult. 2. Respiratory insufficiency, chronic, likely mild chronic chronic obstructive pulmonary disease. We will discuss with Medicine. Suspect, she could be ready for discharge home tomorrow, if cleared by them. Job ID: [id number]
[2018-06-22] MEDS: traMADol HCl 50 MG TAB PO PRN ×3 (11:06→23:03)
--- NOTE | 2018-06-22 12:12 | PDOC.PN ---
- Subjective Encounter Start Date: 06/22/18 Encounter Start Time: 09:35 Subjective: sob is better -: has been amb in hallway -: spo2 90% on 2 lts nc oxygen - Objective MAR Reviewed: Yes Vital Signs & Weight: Vital Signs (12 hours) Temp Pulse Resp BP Pulse Ox 06/22/18 11:28 98.2 F 89 20 110/63 93 L 06/22/18 08:00 94 L 06/22/18 07:21 98.1 F 94 20 111/49 L 92 L 06/22/18 06:31 90 L 06/22/18 06:28 90 20 90 L 06/22/18 04:10 98.1 F 92 20 111/64 93 L 06/22/18 00:29 98.2 F 89 18 119/75 93 L Weight Weight 115 lb I&O: 06/21/18 06/22/18 06/23/18 06:59 06:59 06:59 Intake Total 2440 1420 Output Total 3000 1400 Balance -560 20 Result Diagrams: 06/20/18 05:32 06/20/18 05:32 Phys Exam - Physical Examination HEENT: PERRLA, moist MMs Neck: no JVD, supple Respiratory: no wheezing, no rales Cardiovascular: RRR, no significant murmur Gastrointestinal: soft, no distention, positive bowel sounds Musculoskeletal: no edema, pulses present Neurological: non-focal, moves all 4 limbs Psychiatric: normal affect, A&O x 3 Dx/Plan (1) Acute respiratory failure with hypoxia Code(s): J96.01 - ACUTE RESPIRATORY FAILURE WITH HYPOXIA Status: Acute (2) COPD exacerbation Code(s): J44.1 - CHRONIC OBSTRUCTIVE PULMONARY DISEASE W (ACUTE) EXACERBATION Status: Acute (3) GERD (gastroesophageal reflux disease) Code(s): K21.9 - GASTRO-ESOPHAGEAL REFLUX DISEASE WITHOUT ESOPHAGITIS Status: Chronic Qualifiers: Esophagitis presence: esophagitis presence not specified Qualified Code(s) : K21.9 - Gastro-esophageal reflux disease without esophagitis (4) Depression Code(s): F32.9 - MAJOR DEPRESSIVE DISORDER, SINGLE EPISODE, UNSPECIFIED Status : Chronic Qualifiers: Depression Type: major depressive disorder Active/Remission status: in full remission (5) Crohn's disease Code(s): K50.90 - CROHN'S DISEASE, UNSPECIFIED, WITHOUT COMPLICATIONS Status: Acute Comment: s/p ileocecectomy for stricture and dyslplastic changes on biopsy (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 Margins are clear - Plan is on steroids, nebs, empiric levaquin -: sats drop when she comes off oxygen -: encouraged to use i.spirometry and oob to chair * . Review of Systems - Medications/Allergies Allergies/Adverse Reactions: Allergies Allergy/AdvReac Type Severity Reaction Status Date / Time No Known Drug Allergies Allergy Verified 06/10/18 10:23 Medications: Current Medications Arformoterol Tartrate (Brovana) 15 mcg NEB BID-RT [facility] Last Admin: 06/22/18 06:28 Dose: 15 mcg Benzonatate (Tessalon) 100 mg PO TID [facility] Last Admin: 06/22/18 08:26 Dose: 100 mg Escitalopram Oxalate (Lexapro) 20 mg PO DAILY [facility] Last Admin: 06/22/18 08:26 Dose: 20 mg Famotidine (Pepcid) 20 mg PO Q12HR [facility] Last Admin: 06/22/18 08:26 Dose: 20 mg Famotidine (Pepcid) 20 mg SLOW IVP Q12HR [facility] Last Admin: 06/22/18 08:27 Dose: Not Given Guaifenesin (Mucinex) 600 mg PO Q12HR [facility] Last Admin: 06/22/18 08:29 Dose: Not Given Hydralazine HCl (Apresoline) 10 mg SLOW IVP Q4H PRN PRN Reason: SBP > 170 or DBP > 100 Levofloxacin 500 mg/ Device 100 mls @ 100 mls/hr IVPB Q24HR [facility] Last Admin: 06/22/18 08:27 Dose: 100 mls Methylprednisolone Sodium Succinate (Solu-Medrol) 20 mg IVP Q12HR [facility] Last Admin: 06/22/18 08:25 Dose: 20 mg Ondansetron HCl (Zofran) 4 mg IVP Q6H PRN PRN Reason: Nausea/Vomiting Last Admin: 06/18/18 03:08 Dose: 4 mg Promethazine HCl (Phenergan) 12.5 mg IM Q4H PRN PRN Reason: Nausea/Vomiting Sodium Chloride (Flush - Normal Saline) 10 ml IVF PRN PRN PRN Reason: Saline Flush Tramadol HCl (Ultram) 50 mg PO Q6H PRN PRN Reason: Mild Pain (1-3) Last Admin: 06/22/18 05:02 Dose: 50 mg Tramadol HCl (Ultram) 100 mg PO Q6H PRN PRN Reason: Moderate Pain (4-6) Last Admin: 06/22/18 11:06 Dose: 100 mg Trazodone HCl (Desyrel) 50 mg PO HS [facility] Last Admin: 06/21/18 20:19 Dose: 50 mg
--- NOTE | 2018-06-22 17:23 | PRG ---
DATE OF SERVICE: 06/22/2018 SUBJECTIVE: Ms. Kwan says she is feeling much better. It is anticipated she will go home tomorrow. OBJECTIVE: GENERAL: She is tolerating her p.o. intake well. VITAL SIGNS: She is afebrile. Heart rate is 95; respiratory rate is 20; oximetry is 94; she says she is on room air, so hopefully, she will have to go home with oxygen tomorrow; and blood pressure 120/75. LUNGS: Distant and clear. HEART: Regular rate and rhythm. ABDOMEN: Soft. IMPRESSION: Chronic obstructive pulmonary disease exacerbation associated with an abdominal procedure. This is mild. She has improved with her nebulizer therapy. I will be happy to write for nebulizer medicine, nebulizer tomorrow. She will clearly need this. Hopefully, she is serious about smoking cessation. Her accounts receivable assistant is Dr. Cespedes. I will be happy to see her 2 to 3 weeks after she is discharged from the hospital. I will decrease her steroid dosing to 20 mg of Medrol in the morning. Probably need to go home with at least 10 mg of prednisone. It is unclear whether or not she is chronically on steroids. Job ID: [id number]
[2018-06-22] MEDS: traZODone HCl 50 MG TAB PO SCH (21:04)
[2018-06-23] MEDS: traMADol HCl 50 MG TAB PO PRN ×3 (05:01→16:53)
[2018-06-23] MEDS: Arformoterol 15 MCG/2 ML NEB NEB SCH (07:31)
[2018-06-23] MEDS: guaiFENesin ER 600 MG TAB PO SCH (09:29)
[2018-06-23] MEDS: Famotidine 20 MG TAB PO SCH (09:29)
[2018-06-23] MEDS: Famotidine/PF 20 mg/2ml Vial SLOW IVP SCH (09:29)
[2018-06-23] MEDS: Escitalopram Oxalate 20 mg Tablet PO SCH (09:29)
[2018-06-23] MEDS: Benzonatate 100 MG CAP PO SCH ×2 (09:29→15:27)
--- NOTE | 2018-06-23 10:17 | PRG ---
DATE OF SERVICE: 06/23/2018 SUBJECTIVE: Brigida Kwan is afebrile since she is eating and tolerating nutrition well. OBJECTIVE: VITAL SIGNS: Her heart rate is 80, respiratory rate 14, oximetry is 94. LUNGS: Completely clear. HEART: Regular rhythm. ABDOMEN: Soft and nontender. I reviewed her pathology, she had a T1 N0 adenocarcinoma in her ileocecal area. The tumor invaded the submucosa. Resection margins were free of disease. No lymphovascular invasion was identified. IMPRESSION: 1. Chronic obstructive pulmonary disease? Clinically, we are not sure if she really has significant chronic obstructive pulmonary disease. At this point, I will recommend a nebulizer with Brovana and budesonide twice a day. She will follow up with me in 3 to 4 weeks. 2. Resected colon cancer, should be a surgical cure. 3. Tobacco use up until this admission. She is fairly adamant that she will never smoke again. We will be happy to see her in the future. Job ID: [id number]
--- NOTE | 2018-06-23 14:22 | PRG ---
DATE OF SERVICE: 06/23/2018 SUBJECTIVE: Ms. Kwan is doing much better. Her breathing is improved. She is tolerating regular diet. She is ambulatory. Her O2 sats dropped into the mid 80s, specifically 87% when she is off oxygen, up and walking, so she will need home O2. ASSESSMENT: 1. Status post ileocecectomy for invasive cancer to terminal ileum, T1N0MX. 2. Chronic obstructive pulmonary disease. 3. Low oxygen at rest, will need home O2. PLAN: Discharge later today. Job ID: [id number]
--- NOTE | 2018-06-23 14:23 | PDOC.EVN ---
Event Note - Event Note Event Note: O2 sats 87% or less at rest and when out of bed. She will need home oxygen
[2018-06-23 16:02] VITALS: BP 97/60; TEMP 97.8
--- NOTE | 2018-06-23 18:02 | PDOC.PN ---
- Subjective Encounter Start Date: 06/23/18 Encounter Start Time: 11:45 Subjective: pt up walking with PT - Objective Vital Signs & Weight: Vital Signs (12 hours) Temp Pulse Resp BP Pulse Ox 06/23/18 15:40 97.8 F 96 20 97/60 96 06/23/18 11:38 98.3 F 96 18 99/62 96 06/23/18 07:31 86 14 94 L 06/23/18 07:29 98.4 F 96 22 H 102/60 96 Weight Weight 115 lb I&O: 06/22/18 06/23/18 06/24/18 06:59 06:59 06:59 Intake Total 1420 840 480 Output Total 1400 750 Balance 20 90 480 Result Diagrams: 06/20/18 05:32 06/20/18 05:32 Phys Exam - Physical Examination Neck: no nodes, no JVD, supple, full ROM Respiratory: no wheezing, no rales, no rhonchi, wheezing present, clear to auscultation bilateral Cardiovascular: RRR, no significant murmur, no rub, gallop, irregular Gastrointestinal: soft, non-tender, no distention, positive bowel sounds Dx/Plan (1) Acute respiratory failure with hypoxia Code(s): J96.01 - ACUTE RESPIRATORY FAILURE WITH HYPOXIA Status: Acute (2) COPD exacerbation Code(s): J44.1 - CHRONIC OBSTRUCTIVE PULMONARY DISEASE W (ACUTE) EXACERBATION Status: Acute (3) 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 Margins are clear (4) Crohn's disease Code(s): K50.90 - CROHN'S DISEASE, UNSPECIFIED, WITHOUT COMPLICATIONS Status: Acute Comment: s/p ileocecectomy for stricture and dyslplastic changes on biopsy - Plan ambulated pt, low oxygen will need home oxygen -: pt to follow up with pulm outpatient -: will give her a steroid taper dose -: stable to be discharged home. * . Review of Systems - Review of Systems Respiratory: negative: Cough, Dry, Shortness of Breath, Hemoptysis, SOB with Excertion, Pleuritic Pain, Sputum, Wheezing Cardiovascular: negative: chest pain, palpitations, orthopnea, paroxysmal nocturnal dyspnea, edema, light headedness, other Gastrointestinal: negative: Nausea, Vomiting, Abdominal Pain, Diarrhea, Constipation, Melena, Hematochezia, Other - Medications/Allergies Allergies/Adverse Reactions: Allergies Allergy/AdvReac Type Severity Reaction Status Date / Time No Known Drug Allergies Allergy Verified 06/10/18 10:23
--- NOTE | 2018-06-27 14:58 | PQF ---
SKYLER LOCKE BRYAN DAVID MD [id number] SURG B- [id number] CLINICAL DOCUMENTATION CLARIFICATION FORM: POST DISCHARGE DATE: 06/27/18 ATTN: Dr. Hickey Please exercise your independent, professional judgment in responding to the clarification form. Clinical indicators are provided on the bottom of this form for your review Please check appropriate box(s): [ ] Acute blood loss anemia [ ] Post-op anemia related to acute blood loss [ ] Anemia: [ ] Aplastic [ ] Nutritional [ ] Drug induced (specify) ___ [ ] Hemolytic [ ] Hereditary [ ] Acquired [ ] Autoimmune [ ] Non-autoimmune [ ] Enzyme disorder [ ] Chronic Anemia: [ ] Blood loss [ ] Hemolytic [ ] Simple [ ] Due to Vitamin B12 Deficiency [ ] Other [ x ] Anemia of Chronic Disease (please specify) [ ] Anemia due to Neoplasm: [ ] Primary [ ] Secondary [ ] Anemia due to (please choose): [ ] Due to Chemotherapy [ ] Due to Radiotherapy [ ] Due to Immunotherapy [ ] Other diagnosis [ ] Unable to determine In addition, please specify: Present on Admission (POA): [ ] Yes [ ] No [ ] Unable to determine For continuity of documentation, please document condition throughout progress notes and discharge summary. Thank You. CLINICAL INDICATORS - SIGNS / SYMPTOMS / LABS post op melena Anemia Low hemoglobin: 11-11.4 during admission Low hematocrit: 32.5 - 33.4 during admission RISK FACTORS Colectomy Malignant neoplasm of colon post op Melena TREATMENTS: held anticocagulants monitored H&H (This form is maintained as a part of the permanent medical record) 2014 [employer]. All Rights Reserved Steffi [email or web address] [phone] MTDD
== END 2018-06-23 17:50 | disposition home or self-care (01) | DRG 329 ==
LOC: SURG A 06-16 06:45 → SJJU 06-16 13:42
PROVIDERS: ADMIT Surgery; ATTEND Surgery
PROC: 0DBH0ZZ Excision of Cecum, Open Approach (ICD-10-PCS; principal; 2018-06-20)
PROC: 3E0T3BZ Introduction of Anesthetic Agent into Peripheral Nerves and Plexi, Percutaneous Approach (ICD-10-PCS; 2018-06-20)
PROC: 3E0T33Z Introduction of Anti-inflammatory into Peripheral Nerves and Plexi, Percutaneous Approach (ICD-10-PCS; 2018-06-20)
DX: C17.2 Malignant neoplasm of ileum (principal); J96.01 Acute respiratory failure with hypoxia; K50.012 Crohn's disease of small intestine with intestinal obstruction; J44.1 Chronic obstructive pulmonary disease with (acute) exacerbation; K92.1 Melena; F17.210 Nicotine dependence, cigarettes, uncomplicated; Z86.11 Personal history of tuberculosis; K21.9 Gastro-esophageal reflux disease without esophagitis; F32.9 Major depressive disorder, single episode, unspecified; D63.0 Anemia in neoplastic disease
CPT/HCPCS: 36415; 36416; 71045; 80048; 82533; 82805; 85025; 88309; 88313; 88341; 88342; 94640; J0131; J0670; J1100; J1650; J1885; J1940; J1956; J2001; J2250; J2405; J2704; J2920; J3010; J7050; J7620; S0028

== ENCOUNTER 2018-06-28 02:22 | Inpatient (IN) | payer BC ==
[2018-06-28 02:50] LABS: Hemoglobin 9.6 g/dL (12.0-16.0); Mean Corpuscular HGB CONC 32.9 g/dL (32.0-36.0); Mean Corpuscular Hemoglobin 32.6 pg (27.0-31.0); Mean Corpuscular Volume 99.2 fL (78.0-98.0); Mean Platelet Volume 6.2 fL (7.4-10.4); Platelet Count 586 thou/uL (130-400); RBC Distribution Width 11.7 % (11.5-14.5); Red Blood Cell (RBC) Count 2.94 mill/uL (4.20-5.40); White Blood Cell (WBC) Count 20.3 thou/uL (4.8-10.8)
[2018-06-28 03:07] LABS: Band 48 % (5-11); Eosinophils 1 % (0-10); Lymphocytes 5 % (21-51); MDiff Complete? YES; Monocytes 5 % (0-10); Neutrophil 41 % (42-75)
[2018-06-28 03:10] LABS: ALT (SGPT) 23 U/L (8-55); AST (SGOT) 15 U/L (5-34); Albumin 2.6 g/dL (3.5-5.0); Alkaline Phosphatase 100 U/L (40-150); Anion Gap 14 mmol/L (10-20); BUN (Urea Nitrogen) 6 mg/dL (9.8-20.1); Bilirubin, Total 1.1 mg/dL (0.2-1.2); Calc. Creatinine Clearance 0 mL/min (70-130); Calcium 7.7 mg/dL (7.8-10.44); Carbon Dioxide 30 mmol/L (22-29); Chloride 92 mmol/L (98-107); Estimated GFR-MDRD Greater than 90; Globulin 2.6 g/dL (2.4-3.5); Glucose 91 mg/dL (70-105); Protein, Total 5.2 g/dL (6.0-8.3); Sodium 134 mmol/L (136-145)
[2018-06-28 03:15] LABS: Potassium 2.4 mmol/L (3.5-5.1)
[2018-06-28] MEDS ORDERED: Sodium Chloride 0.9% 100 ML ONE (03:50)
[2018-06-28] MEDS ORDERED: Piperacillin/Tazobactam 4.5 GM VIAL ONE (03:50)
[2018-06-28] MEDS ORDERED: Potassium Chloride 20 MEQ TAB ONE (03:50)
[2018-06-28] MEDS ORDERED: Ondansetron PF 4 MG/2 ML Vial ONE ×2 (04:05→16:25)
[2018-06-28] MEDS ORDERED: Morphine 4 MG/ML VIAL ONE (04:05)
[2018-06-28] MEDS ORDERED: Magnesium 2 GM/50 ML BAG (IN WATER) ONE (04:21)
[2018-06-28] MEDS ORDERED: Potassium Chloride 20 MEQ in Premix Bag 1 BAG IVPB SCH (05:15)
[2018-06-28 06:02] VITALS: BMI 22.2
[2018-06-28] MEDS ORDERED: Morphine 4 MG/ML VIAL SLOW IVP PRN ×2 (06:22→07:54)
[2018-06-28] MEDS ORDERED: Pantoprazole 40 MG VIAL IVP SCH (06:30)
[2018-06-28] MEDS ORDERED: Dextrose 5 % And 0.9 % NaCl 1,000 ML IV SCH (06:30)
[2018-06-28] MEDS ORDERED: D5 1/2 NS w/20 mEq KCL 1,000 ML IV SCH (07:54)
[2018-06-28] MEDS ORDERED: Dextrose 5% in Water 1,000 ML IV PRN ×2 (07:54→14:12)
[2018-06-28] MEDS ORDERED: Dextrose 50% Abboject 50 ML SYRINGE SLOW IVP PRN ×2 (07:54→14:12)
[2018-06-28] MEDS ORDERED: Morphine 2 MG/ML SYRINGE SLOW IVP PRN (07:54)
[2018-06-28] MEDS ORDERED: hydrALAZINE 20 MG/ML VIAL SLOW IVP PRN ×2 (07:54→14:12)
[2018-06-28] MEDS ORDERED: Acetaminophen 1,000 MG in Premix Bag 1 BAG IVPB PRN ×2 (07:54→14:12)
[2018-06-28] MEDS ORDERED: Promethazine HCl 25 MG/ML VIAL IM PRN ×4 (07:54→14:12)
[2018-06-28] MEDS ORDERED: Ondansetron PF 4 MG/2 ML Vial IVP PRN ×2 (07:54→14:12)
[2018-06-28] MEDS ORDERED: Famotidine/PF 20 mg/2ml Vial SLOW IVP SCH (09:00)
[2018-06-28] MEDS ORDERED: Benzonatate 100 MG CAP PO SCH (09:00)
[2018-06-28] MEDS ORDERED: Escitalopram Oxalate 20 mg Tablet PO SCH (09:00)
[2018-06-28] MEDS ORDERED: POTASSIUM 99 MG PO SCH (09:00)
[2018-06-28] MEDS ORDERED: BIOTIN 10000 MCG PO SCH (09:00)
[2018-06-28] MEDS ORDERED: pyridOXINE 50 MG (B6) TAB PO SCH (09:00)
[2018-06-28] MEDS ORDERED: Famotidine 20 MG TAB PO SCH (09:00)
[2018-06-28] MEDS ORDERED: Calcium Carbonate 600 MG TAB PO SCH (09:00)
[2018-06-28] MEDS ORDERED: Fentanyl 250 MCG/5 ML VIAL ONE (09:02)
[2018-06-28] MEDS ORDERED: Meperidine HCl/PF 25 MG/ML VIAL SLOW IVP PRN (09:34)
[2018-06-28] MEDS ORDERED: Ondansetron HCl/PF 4 MG/2 ML Vial IVP PRN (09:34)
[2018-06-28] MEDS ORDERED: Ketorolac Tromethamine 30 MG/ML VIAL IVP PRN (09:34)
[2018-06-28] MEDS ORDERED: Promethazine HCl 25 MG/ML VIAL SLOW IVP PRN (09:34)
[2018-06-28] MEDS ORDERED: Piperacillin/Tazobactam 3.375 GM in Sodium Chloride 0.9% 100 ML IVPB SCH (10:00)
[2018-06-28] MEDS ORDERED: Lidocaine 2% 11 ML SYR ONE (10:22)
[2018-06-28] MEDS ORDERED: cefOXitin Sodium/Dextrose,Iso 2 GM in Premix Bag 1 BAG IVPB SCH (10:45)
[2018-06-28] MEDS ORDERED: Fentanyl 100 MCG/2 ML VIAL ONE ×2 (12:16→12:41)
[2018-06-28] MEDS ORDERED: HYDROmorphone 2 MG/ML VIAL ONE (13:05)
[2018-06-28] MEDS ORDERED: diphenhydrAMINE 25 MG CAP PO PRN (13:57)
[2018-06-28] MEDS ORDERED: Zolpidem Tartrate 5 MG TAB PO PRN (13:57)
[2018-06-28] MEDS ORDERED: fentaNYL Citrate/PF 2,000 MCG in Sodium Chloride 0.9% 60 ML IV PRN (13:57)
[2018-06-28] MEDS ORDERED: diphenhydrAMINE 50 MG/ML VIAL IM PRN (13:57)
[2018-06-28] MEDS ORDERED: Naloxone HCl 0.4 mg/ml Vial IV PRN (13:57)
[2018-06-28] MEDS ORDERED: diphenhydrAMINE 50 MG/ML VIAL IVP PRN (13:57)
[2018-06-28] MEDS ORDERED: Communication Order-Pharmacy FS SCH (14:00)
[2018-06-28] MEDS ORDERED: Ondansetron ODT 4 MG TAB PO PRN (14:12)
[2018-06-28] MEDS: Piperacillin/Tazobactam 3.375 GM in Sodium Chloride 0.9% 100 ML IVPB SCH ×2 (15:19→19:43)
[2018-06-28] MEDS ORDERED: Heparin 1,000 UNITS/ML VIAL ONE ×2 (16:13→19:48)
[2018-06-28] MEDS ORDERED: Lidocaine 1% PF 5 ML VIAL ONE (16:25)
[2018-06-28] MEDS ORDERED: Glycopyrrolate 0.2 MG/ML 5 ML SYRINGE ONE (16:25)
[2018-06-28] MEDS ORDERED: Rocuronium Bromide 10 MG/ML (10ML VIAL) ONE (16:25)
[2018-06-28] MEDS ORDERED: Esmolol 100 MG/10 ML VIAL ONE (16:25)
[2018-06-28] MEDS ORDERED: PROPOFOL 200 MG/20 ML VIAL ONE (16:25)
[2018-06-28] MEDS ORDERED: Sodium Chloride 0.9% 1,000 ML IV SCH (16:45)
[2018-06-28 17:44] LABS: Anion Gap 12 mmol/L (10-20); BUN (Urea Nitrogen) 7 mg/dL (9.8-20.1); Calc. Creatinine Clearance 69 mL/min (70-130); Calcium 7.2 mg/dL (7.8-10.44); Carbon Dioxide 24 mmol/L (22-29); Chloride 101 mmol/L (98-107); Estimated GFR-MDRD 79; Glucose 104 mg/dL (70-105); Sodium 133 mmol/L (136-145)
[2018-06-28] MEDS ORDERED: traZODone HCl 50 MG TAB PO SCH (21:00)
--- NOTE | 2018-06-28 22:58 | OP ---
DATE OF PROCEDURE: 06/28/2018 PREOPERATIVE DIAGNOSIS: Fascial dehiscence. POSTOPERATIVE DIAGNOSES: 1. Fascial dehiscence. 2. Anastomotic breakdown. 3. Abdominal abscess. PROCEDURES PERFORMED: 1. Abdominal washout. 2. Resection of previous ileocolic anastomosis with end ileostomy. ANESTHESIA: General. ESTIMATED BLOOD LOSS: 100 mL. COMPLICATIONS: None. FINDINGS: There is complete disruption of her ileocolic anastomosis. Her perforation was contained. TECHNIQUE: The patient was taken to the operating room and laid supine on the operating room table. After general anesthetic was obtained, a Sanders was placed as well as an NG tube. The abdomen is prepped and draped in a sterile fashion. The skin is opened to its fullest extent. The fascia was reopened. There was fascial dehiscence in 2/3 of the lower aspect of the incision. The abdominal cavity was entered without injury. All 4 quadrants of the abdomen were irrigated. There was significant omental and small bowel stuck together, stuck in the right upper quadrant with foul smell, peeling this away near the mesentery reveals evidence of enteric contents. All interloop loculations were then broken up revealing a complete anastomotic breakdown. A CONOR 75 was fired across the colon distal to this as well as the small intestine proximal to the anastomosis. The resultant mesentery was taken using Impact LigaSure. A few bleeders were oversewn using silk pop offs. The abdomen was irrigated using multiple liters of warm sterile solution until returns were clear. Ellipse skin taken out in the right lower quadrant and the end ileostomy segments brought up through here without evidence of ischemia, held in place using a Troy. A plane was raised superior to the fascia on both sides to facilitate mobilization and closure. All instrument counts, needle counts, lap counts were correct. PDS was used to close the fascial defect on top and bottom and tied in the middle. Several buried retention sutures of #1 Prolene were placed wide of the midline fascia through the rectus muscle in order to reinforce the fascial closure. Subcutaneous tissues were irrigated. The ileostomy was matured in the usual fashion using 3-0 Vicryl. Midline wound VAC was placed as well as an ostomy device. The patient was sent to Recovery in stable condition. All instrument counts, needle counts and lap counts are correct. Job ID: [id number]
--- NOTE | 2018-06-28 23:10 | HP ---
CHIEF COMPLAINT: Abdominal pain, fascial dehiscence. HISTORY OF PRESENT ILLNESS: This is a 52-year-old female who is 10 days status post ileocecectomy for Crohn's stricture with postop pathology results revealing T1 N0 MX adenocarcinoma of the terminal ileum. Postop course was complicated by severe intractable cough secondary to her underlying COPD. This morning, she coughed and felt a pop and her wound opened up. PAST MEDICAL HISTORY: Includes Crohn disease and cholecystectomy. SURGICAL HISTORY: D and C, cholecystectomy, ileocecectomy. MEDICATIONS: Taken daily, see list. ALLERGIES: NO KNOWN DRUG ALLERGIES. SOCIAL HISTORY: Pack a day smoker for most of her adult life, not a daily drinker. No other drugs. REVIEW OF SYSTEMS: Otherwise negative unless described above. PHYSICAL EXAMINATION: VITAL SIGNS: Her pulse is 89, respirations are 20, temperature is afebrile. She is 111/ 67. HEENT: Sclerae anicteric. Oropharynx clear. NECK: No lymphadenopathy. CHEST: Clear. HEART: Regular rate and rhythm. ABDOMEN: Soft. It is distended. The fascia and skin are opened. LABORATORY DATA: White blood cell count is 20, hemoglobin 9.6, platelet count is 586 with 48 bands. Creatinine is 0.57. ASSESSMENT: Fascial and abdominal wound dehiscence. PLAN: Take to the operating room for abdominal washout. Risks, benefits, and alternatives were discussed. She gives consent. We will do this today. Job ID: [id number]
--- NOTE | 2018-06-29 01:04 | CON ---
DATE OF CONSULTATION: PRIMARY CARE PHYSICIAN: Dr. Mandi Kirk. PRIMARY TEAM: General surgery, Dr. Hickey. REASON FOR CONSULTATION: Medical management. HISTORY OF PRESENT ILLNESS: This is a 52-year-old white female who is recently hospitalized by Dr. Hickey for resection of an ileal stricture associated with her Crohn disease that also had abnormal pathology on biopsy. She had the ileal resection and reanastomosis. They found colon cancer on the resected piece without any evidence of spread and clear margins. The patient during her hospitalization had hypoxia and was seen by Dr. Eden and by the hospitalist service. She was diagnosed with possible COPD and had to be sent home on oxygen and a steroid taper. The patient finished her steroid taper today. At home today, she had a complete dehiscence of her abdominal wound and so she came in for revision by Dr. Hickey. Dr. Hickey took her to the operating room, there he found evidence of anastomotic leak and so she had further excision of the bowel and had an ileostomy placed and also had a wound VAC placed over her midline incision. The patient is feeling weak, but otherwise doing well postoperatively. She continues to be on 3 L of oxygen, which is what she was sent home on from the hospital last week. PAST MEDICAL HISTORY: 1. Crohn disease. 2. Latent tuberculosis. 3. Possible COPD diagnosed earlier this month. 4. Adenocarcinoma of the intestines, status post resection with clear margins. PAST PSYCHIATRIC HISTORY: Depression. PAST SURGICAL HISTORY: 1. Open ileocecectomy performed on June 16, 2018 with revision today. 2. Cholecystectomy. 3. D and C. 4. Sinus surgery. SOCIAL HISTORY: The patient previously smoked a pack of cigarettes per day. She quit after last hospitalization and does not drink alcohol or use illicit drugs. She is and has 2 children. ALLERGIES: NO KNOWN DRUG ALLERGIES. CURRENT MEDICATIONS: 1. Humira Pen 40 mg subcu as directed, stopped in May. 2. Protonix 40 mg daily. 3. Tessalon 100 mg three times a day. 4. Biotin 80139 mcg daily. 5. Calcium carbonate 600 mg daily. 6. Lexapro 20 mg daily. 7. Potassium 99 mg daily. 8. Vitamin B6 100 mg daily. 9. Trazodone 50 mg at night. REVIEW OF SYSTEMS: CONSTITUTIONAL: No fevers, no chills. Just generalized weakness. EYES: No double vision or blurred vision. ENT: No congestion, drainage, or sore throat. She does have a very dry mouth since surgery and she is now n.p.o. CARDIOVASCULAR: No chest pain. No palpitations or racing heart. PULMONARY: Persistent nonproductive cough since her last hospitalization. No shortness of breath on the oxygen. GASTROINTESTINAL: She has had some nausea. No vomiting. She has had persistent diarrhea several times a day and has only been able to tolerate liquids. She says she does not feel hungry. GENITOURINARY: No dysuria or hematuria. MUSCULOSKELETAL: No muscle aches or joint pains. SKIN: No rashes or lesions noted. NEUROLOGIC: No numbness, tingling, or focal weakness. PHYSICAL EXAMINATION: VITAL SIGNS: Blood pressure 93/62, pulse 115 after surgery, was normal before, O2 saturation 92% on 3 L nasal cannula, temperature 98.0. GENERAL: This is a well-developed white female who appears weak and in some discomfort, but no respiratory distress. HEENT: Pupils equal, round, and reactive to light. Oropharynx clear without lesions, erythema, or exudate. NECK: Supple. No lymphadenopathy. No thyroid nodules or enlargement. No JVD. HEART: Regular rhythm, mildly tachycardic on my exam. LUNGS: Clear to auscultation bilaterally. No wheezes, crackles, or rhonchi. ABDOMEN: Has the midline wound VAC and the right ileostomy. She has an NG tube in place to low intermittent suction. Her belly is tender to palpation diffusely. EXTREMITIES: No clubbing, cyanosis, or edema. She has good peripheral pulses. SKIN: No rashes or lesions noted. NEUROLOGIC: She has equal strength in all extremities and no facial droop. LABORATORY DATA: [place] [address], up from 10,000 on the 14th, hemoglobin down to 9.6 from 11.2, hematocrit 29.2, platelet count 586, up from 392 in her last hospitalization, neutrophils 41%, bands 48%. Complete metabolic panel earlier this morning with a sodium of 134, potassium of 2.4, creatinine of 0.57, albumin of 2.6. Basic metabolic panel repeated this evening with a sodium of 133, potassium was up to 4.0. The remainder was within normal limits. Her calcium was 7.2. ASSESSMENT: 1. Status post ileocecectomy and anastomosis with anastomotic leak and dehiscence of wound, now with ileostomy. 2. Sepsis from anastomotic leak. The patient has an elevated white blood cell count, tachycardic, was hypotensive earlier, but this is resolved. She has received Zosyn in the emergency room along with potassium. This is being continued currently, also got some cefoxitin prior to surgery. We will continue IV fluids for now and monitor vital signs closely. 3. Chronic obstructive pulmonary disease. The patient is currently on 3 L of oxygen, saturating well. She has finished her steroid course and antibiotics from previous hospitalization. Once her acute issues are improved, we will try to wean down her oxygen to see if she is going to need to continue on that at home or she can go on a lower dose. 4. Gastrointestinal prophylaxis. The patient is on Protonix 40 mg IV daily. 5. Deep venous thrombosis prophylaxis. The patient is on SCDs. 6. Code status. The patient is a full code. Her medical decision maker is her , Baljeet Kwan. Job ID: [id number]
[2018-06-29] MEDS: Piperacillin/Tazobactam 3.375 GM in Sodium Chloride 0.9% 100 ML IVPB SCH ×4 (02:54→20:05)
[2018-06-29 06:07] LABS: Chloride 103 mmol/L (98-107); Potassium 4.2 mmol/L (3.5-5.1); Sodium 136 mmol/L (136-145)
[2018-06-29 06:08] LABS: Calcium 7.4 mg/dL (7.8-10.44); Glucose 125 mg/dL (70-105)
[2018-06-29 06:09] LABS: Carbon Dioxide 23 mmol/L (22-29)
[2018-06-29 06:12] LABS: BUN (Urea Nitrogen) 15 mg/dL (9.8-20.1)
[2018-06-29 06:28] LABS: Band 27 % (5-11); Lymphocytes 7 % (21-51); MDiff Complete? YES; Mean Corpuscular HGB CONC 32.1 g/dL (32.0-36.0); Mean Corpuscular Hemoglobin 32.8 pg (27.0-31.0); Mean Platelet Volume 6.8 fL (7.4-10.4); Monocytes 5 % (0-10); Myelocyte 1 % (0-0); Neutrophil 60 % (42-75); Platelet Count 583 thou/uL (130-400); Platelet Morphology Comment Appears Increased; RBC Distribution Width 12.2 % (11.5-14.5); Red Blood Cell (RBC) Count 3.04 mill/uL (4.20-5.40)
[2018-06-29] MEDS ORDERED: Prevnar 13-Val Conj/PF 0.5 ML SYRINGE IM ONE (06:30)
[2018-06-29 06:42] LABS: Calc. Creatinine Clearance 39 mL/min (70-130); Estimated GFR-MDRD 41
[2018-06-29] MEDS ORDERED: Albuterol Sulfate 1.25 MG/3 ML NEB NEB PRN (07:51)
[2018-06-29 07:52] LABS: Anion Gap 14 mmol/L (10-20)
[2018-06-29] MEDS: Pantoprazole 40 MG VIAL IVP SCH (07:59)
--- NOTE | 2018-06-29 08:02 | PDOC.GSPN ---
Surgery Progress Note: Subj - Subjective Narrative: Pain controlled with [employer]ELOPER, wants NG out, denies nausea Surgery Progress Note: Obj - Vital signs Vital signs: Vital Signs - Most Recent Temp Pulse Resp BP Pulse Ox 97.9 F 97 18 95/54 L 20 L 06/29/18 07:30 06/29/18 07:30 06/29/18 06:32 06/29/18 07:30 06/29/18 07:30 - Physical Exam General: no distress Cardiovascular: regular rate and rhythm Respiratory: coarse breath sounds Abdomen: soft, appropriately tender Wound: wound vac, ostomy/colostomy (viable mucosa) Surgery Progress Note: Results - Labs Result Diagrams: 06/29/18 05:22 06/29/18 05:22 Lab results: Laboratory Results - last 24 hr 06/29/18 06/29/18 05:22 05:22 WBC 38.0 H RBC 3.04 L Hgb 10.0 L Hct 31.1 L MCV 102.0 H MCH 32.8 H MCHC 32.1 RDW 12.2 Plt Count 583 H MPV 6.8 L Neutrophils % (Manual) 60 Band Neuts % (Manual) 27 H Lymphocytes % (Manual) 7 L Monocytes % (Manual) 5 Myelocytes % 1 H Plt Morphology Comment Appears Increased H Sodium 136 Potassium 4.2 Chloride 103 Carbon Dioxide 23 Anion Gap 14 BUN 15 Creatinine 1.36 H Estimated GFR (MDRD) 41 Glucose 125 H Calcium 7.4 L Surgery Progress Note: A/P - Problem (1) Crohn's disease Current Visit: No Code(s): K50.90 - CROHN'S DISEASE, UNSPECIFIED, WITHOUT COMPLICATIONS Status: Acute - Plan Plan: POD 1 washout for anastamotic leak, fascia dehiscence -begin to mobilize -dc NG but no diet yet, I expect ileus -place picc line for tpn -consult case management for home vac, wound care Creatinine 1.36 -bolus IVF
[2018-06-29] MEDS ORDERED: Sodium Chloride 0.9% 1,000 ML IV SCH (08:15)
--- NOTE | 2018-06-29 08:38 | PDOC.PN ---
- Subjective Encounter Start Date: 06/29/18 Encounter Start Time: 15:20 Subjective: Patient reports feeling a little more energetic today. Is feeling a -: little irritated and confused. Didn't sleep last night. - Objective MAR Reviewed: Yes Vital Signs & Weight: Vital Signs (12 hours) Temp Pulse Resp BP Pulse Ox 06/29/18 07:30 97.9 F 97 18 95/54 L 91 L 06/29/18 06:32 99 18 94 L 06/29/18 05:08 92 L 06/29/18 05:00 98 F 101 H 16 103/66 06/29/18 00:36 98.1 F 104 H 16 90/55 L 91 L Weight Admit Weight 114 lb 1.6 oz Weight 114 lb 1.6 oz I&O: 06/28/18 06/29/18 06/30/18 06:59 06:59 06:59 Intake Total 925 Output Total 450 Balance 475 Result Diagrams: 06/29/18 05:22 06/29/18 05:22 Phys Exam - Physical Examination Constitutional: NAD Respiratory: no wheezing, no rales, no rhonchi Cardiovascular: RRR Gastrointestinal: no distention, positive bowel sounds gas and minimal black material in ostomy bag Musculoskeletal: no edema Neurological: non-focal, moves all 4 limbs Psychiatric: normal affect, A&O x 3 Dx/Plan (1) S/P ileostomy Code(s): Z93.2 - ILEOSTOMY STATUS Status: Acute (2) Sepsis Code(s): A41.9 - SEPSIS, UNSPECIFIED ORGANISM Status: Acute Comment: from anastomotic leak, WBC up further, on Zosyn since 06/28/2018 (3) COPD exacerbation Code(s): J44.1 - CHRONIC OBSTRUCTIVE PULMONARY DISEASE W (ACUTE) EXACERBATION Status: Acute Comment: finished steroid course, will wean O2 as able, nebs prn (4) Crohn's disease Code(s): K50.90 - CROHN'S DISEASE, UNSPECIFIED, WITHOUT COMPLICATIONS Status: Chronic Qualifiers: Gastrointestinal tract location: small and large intestine Comment: s/p ileocecectomy for stricture and adenocarcinoma- completely removed with clear margins (5) Acute renal failure Status: Acute Comment: low BP this AM, increasing IV fluids today and a bit better now (6) Acute encephalopathy Code(s): G93.40 - ENCEPHALOPATHY, UNSPECIFIED Status: Acute Comment: mild, still oriented, will give Geodon to help sleep tonight to try and prevent delirium - Plan cont current plan of care, continue antibiotics, PT/OT, DVT proph w/lovenox, DVT proph w/SCDs * . - Discharge Day Encounter end time: 15:35 Pulmonology Consult: Meds - Medications MAR Reviewed: Yes Medications: Current Medications Albuterol Sulfate (Albuterol Sulfate) 1.25 mg NEB Q4H PRN PRN Reason: Wheezing Albuterol/Ipratropium (Duoneb) 3 ml EZPAP TID-RT [facility] Last Admin: 06/29/18 06:32 Dose: 3 ml Dextrose/Water (Dextrose 50%) 25 gm SLOW IVP PRN PRN PRN Reason: Hypoglycemia Diphenhydramine HCl (Benadryl) 25 mg IVP Q3H PRN PRN Reason: Itching Diphenhydramine HCl (Benadryl) 25 mg PO Q3H PRN PRN Reason: Itching Diphenhydramine HCl (Benadryl) 25 mg IM Q3H PRN PRN Reason: Itching Enoxaparin Sodium (Lovenox) 40 mg SC 2100 [facility] Glucagon (Glucagon) 1 mg IM PRN PRN PRN Reason: Hypoglycemia Hydralazine HCl (Apresoline) 10 mg SLOW IVP Q4H PRN PRN Reason: SBP > 170 or DBP > 100 Fentanyl Citrate 2,000 mcg/ (Sodium Chloride) 100 mls @ 0 mls/hr IV INF PRN PRN Reason: Pain Acetaminophen 1,000 mg/ Device 100 mls @ 400 mls/hr IVPB Q6H PRN PRN Reason: Fever/Mild Pain Stop: 06/29/18 14:13 Last Admin: 06/29/18 04:24 Dose: 100 mls Dextrose/Water (D5w) 1,000 mls @ 0 mls/hr IV .Q0M PRN PRN Reason: Hypoglycemia Piperacillin Sod/Tazobactam (Sod 3.375 gm/ Sodium Chloride) 100 mls @ 200 mls/ hr IVPB 0300,0900,1500,2100 [facility] Last Admin: 06/29/18 07:59 Dose: 100 mls Sodium Chloride (Normal Saline 0.9%) 1,000 mls @ 999 mls/hr IV .Q1H1M [facility] Stop: 06/29/18 09:15 Last Admin: 06/29/18 08:13 Dose: 1,000 mls Naloxone HCl (Narcan) 0.2 mg IV Q5MIN PRN PRN Reason: Opiate Reversal Ondansetron HCl (Zofran) 4 mg IVP Q6H PRN PRN Reason: Nausea/Vomiting Ondansetron HCl (Zofran Odt) 4 mg PO Q6H PRN PRN Reason: Nausea/Vomiting Pantoprazole Sodium (Protonix) 40 mg IVP DAILY [facility] Last Admin: 06/29/18 07:59 Dose: 40 mg Promethazine HCl (Phenergan) 12.5 mg IM Q4H PRN PRN Reason: Nausea/Vomiting Promethazine HCl (Phenergan) 12.5 mg IM Q4H PRN PRN Reason: Nausea Sodium Chloride (Flush - Normal Saline) 10 ml IVF PRN PRN PRN Reason: Saline Flush Last Admin: 06/29/18 08:00 Dose: 10 ml Zolpidem Tartrate (Ambien) 5 mg PO HSPRN PRN PRN Reason: Insomnia - Allergies Allergies/Adverse Reactions: Allergies Allergy/AdvReac Type Severity Reaction Status Date / Time No Known Drug Allergies Allergy Verified 06/28/18 06:09
--- NOTE | 2018-06-29 15:01 | SPC ---
LEFT UPPER EXTREMITY DOUBLE-LUMEN PICC LINE INSERTION: HISTORY: Patient in need of long-term IV antibiotics. RADIATION DOSIMETRY: 2.4 minutes of fluoroscopy and AK of 1.88 Gy. TECHNIQUE: Informed consent was obtained from the patient. The left basilic vein was accessed using a micropunc ture set. An 0.018 wire was introduced. Over the wire, a peel-away sheath was introduced. The doub le-lumen PICC line was cut to 39 cm and placed over the wire, through the sheath, with the distal tip at the SVC/right atrial junction. IMPRESSION: Successful placement of a double-lumen left upper extremity peripherally inserted central catheter jeffery patel. POS: GENNARO
--- NOTE | 2018-06-29 19:16 | PQF ---
CLINICAL DOCUMENTATION IMPROVEMENT CLARIFICATION FORM: ICD-10 Updated PLEASE DO AN ADDENDUM TO THE PROGRESS NOTE WITH ANY DOCUMENTATION UPDATES OR ADDITIONS AND CARRY THROUGH TO DC SUMMARY. THANK YOU. DATE: 06/29/18 ATTN: DR. LOUIS Please exercise your independent, professional judgment in responding to the clarification form. Clinical indicators are provided on the bottom of this form for your review Please check appropriate box(s): [ X ] Encephalopathy: Type: [ X ] Acute [ ] Subacute [ ] Chronic Etiology: [ ] Hypertensive [ X ] Metabolic [ ] Toxic [ ] Hepatic with Coma [ ] Hepatic w/o Coma [ ] Hypoxic [ ] Septic [ ] Drug induced: [ ] Unspecified [ ] in the setting of underlying dementia [ ] Other (please specify) [ ] Transient Alteration of Awareness [ ] Other diagnosis [ ] Unable to determine In addition, please specify: Present on Admission (POA): [ ] Yes [ X ] No [ ] Unable to determine For continuity of documentation, please document condition throughout progress notes and discharge summary. Thank You. CLINICAL INDICATORS - SIGNS / SYMPTOMS / LABS PROGRESS NOTE 06/29: "FEELING IRRITATED AND CONFUSED" "ACUTE ENCEPHALOPATHY" RISKS: RECENT SURGERY SEPSIS RECENT ANESTHESIA FENTANYL INSOLE STIFFENER PUMP TREATMENT: IV ZOSYN (ER-06/28) IV FLUIDS 06/29 NARCAN PRN (This form is maintained as a part of the permanent medical record) 2014 [employer]. All Rights Reserved [employer] Senior Compliance Analyst [employer] [email or web address]@ [email or web address] Office: [phone] [facility]
[2018-06-29] MEDS: Enoxaparin Sodium 40 MG/0.4 ML SYRINGE SC SCH (20:05)
[2018-06-30] MEDS: Piperacillin/Tazobactam 3.375 GM in Sodium Chloride 0.9% 100 ML IVPB SCH ×4 (02:08→20:09)
[2018-06-30 07:39] LABS: Hemoglobin 7.8 g/dL (12.0-16.0); Mean Corpuscular HGB CONC 31.5 g/dL (32.0-36.0); Mean Corpuscular Hemoglobin 32.2 pg (27.0-31.0); Mean Platelet Volume 6.4 fL (7.4-10.4); Platelet Count 544 thou/uL (130-400); RBC Distribution Width 12.4 % (11.5-14.5); Red Blood Cell (RBC) Count 2.43 mill/uL (4.20-5.40); White Blood Cell (WBC) Count 34.3 thou/uL (4.8-10.8)
[2018-06-30 07:46] LABS: Anion Gap 12 mmol/L (10-20); BUN (Urea Nitrogen) 19 mg/dL (9.8-20.1); Calc. Creatinine Clearance 44 mL/min (70-130); Calcium 7.9 mg/dL (7.8-10.44); Carbon Dioxide 23 mmol/L (22-29); Chloride 104 mmol/L (98-107); Estimated GFR-MDRD 47; Glucose 125 mg/dL (70-105); Potassium 3.9 mmol/L (3.5-5.1); Sodium 135 mmol/L (136-145)
[2018-06-30] MEDS: Pantoprazole 40 MG VIAL IVP SCH (07:54)
--- NOTE | 2018-06-30 09:01 | PDOC.PN ---
- Subjective Encounter Start Date: 06/30/18 Encounter Start Time: 11:40 Subjective: Uncertain if patient slept last night. More confused this morning. Talking -: to people in her sleep this morning per . - Objective MAR Reviewed: Yes Vital Signs & Weight: Vital Signs (12 hours) Pulse Resp Pulse Ox 06/30/18 08:03 93 L 06/30/18 08:01 122 H 20 93 L Weight Admit Weight 114 lb 1.6 oz Weight 114 lb 1.6 oz I&O: 06/29/18 06/30/18 07/01/18 06:59 06:59 06:59 Intake Total 925 550 Output Total 450 520 Balance 475 30 Result Diagrams: 06/30/18 07:08 06/30/18 07:08 Phys Exam - Physical Examination Constitutional: NAD HEENT: moist MMs Respiratory: no wheezing, no rales, no rhonchi Cardiovascular: RRR Gastrointestinal: positive bowel sounds dressing in place over midline wound, wound vac to be replaced Neurological: non-focal, moves all 4 limbs Psychiatric: normal affect Deviation from normal: oriented to person, thought hospital in [place], knew day of week, thought 2017, unsure month. Doesn't understand why she is here/ about wound Dx/Plan (1) S/P ileostomy Code(s): Z93.2 - ILEOSTOMY STATUS Status: Acute (2) Sepsis Code(s): A41.9 - SEPSIS, UNSPECIFIED ORGANISM Status: Acute Comment: from anastomotic leak, WBC up further, on Zosyn since 06/28/2018 (3) COPD exacerbation Code(s): J44.1 - CHRONIC OBSTRUCTIVE PULMONARY DISEASE W (ACUTE) EXACERBATION Status: Acute Comment: finished steroid course, will wean O2 as able, nebs prn (4) Crohn's disease Code(s): K50.90 - CROHN'S DISEASE, UNSPECIFIED, WITHOUT COMPLICATIONS Status: Chronic Qualifiers: Gastrointestinal tract location: small and large intestine Comment: s/p ileocecectomy for stricture and adenocarcinoma- completely removed with clear margins (5) Acute renal failure Status: Acute Comment: low BP this AM, increasing IV fluids today and a bit better now (6) Acute encephalopathy Code(s): G93.40 - ENCEPHALOPATHY, UNSPECIFIED Status: Acute Comment: worsening confusion, likely due to infection/sepsis/ and poor sleep. Trying Seroquel at night. - Plan cont current plan of care, continue antibiotics, PT/OT, DVT proph w/lovenox, DVT proph w/SCDs * . - Discharge Day Encounter end time: 12:00
[2018-06-30 09:08] LABS: Band 29 % (5-11); Lymphocytes 8 % (21-51); MDiff Complete? YES; Monocytes 2 % (0-10); Neutrophil 61 % (42-75); Platelet Morphology Comment Appears Increased; Polychromasia SLIGHT = 2-3 cells (100X) (0-2/hpf)
[2018-06-30] MEDS ORDERED: Acetaminophen 1,000 MG in Premix Bag 1 BAG IVPB PRN (12:09)
[2018-06-30] MEDS ORDERED: Fentanyl 100 MCG/2 ML VIAL SLOW IVP PRN ×2 (12:09)
[2018-06-30] MEDS ORDERED: Morphine 4 MG/ML VIAL SLOW IVP PRN (12:09)
[2018-06-30] MEDS ORDERED: Morphine 2 MG/ML SYRINGE SLOW IVP PRN (12:16)
[2018-06-30] MEDS: Enoxaparin Sodium 40 MG/0.4 ML SYRINGE SC SCH (20:10)
[2018-06-30] MEDS ORDERED: Insulin Regular 300 UNITS/3 ML VIAL SC PRN (22:23)
[2018-06-30] MEDS: MULTITRACE IV SCH (22:25)
[2018-06-30] MEDS: MULTIVITAMINS IV SCH (22:25)
[2018-06-30] MEDS: [UNRECOGNIZED DRUG - OTHER] IV SCH (22:25)
[2018-06-30] MEDS: MAGNESIUM SULFATE IV SCH (22:25)
[2018-06-30] MEDS ORDERED: Diabetic Tussin 200 MG/10 ML UDCUP PO PRN (22:36)
[2018-06-30] MEDS: Sodium Chloride 0.9% 1,000 ML IV SCH (22:59)
[2018-07-01] MEDS: Piperacillin/Tazobactam 3.375 GM in Sodium Chloride 0.9% 100 ML IVPB SCH ×4 (03:19→20:54)
[2018-07-01 07:11] LABS: Hemoglobin 6.4 g/dL (12.0-16.0); Mean Corpuscular HGB CONC 32.5 g/dL (32.0-36.0); Mean Corpuscular Hemoglobin 32.9 pg (27.0-31.0); Mean Platelet Volume 6.2 fL (7.4-10.4); Platelet Count 437 thou/uL (130-400); RBC Distribution Width 12.1 % (11.5-14.5); Red Blood Cell (RBC) Count 1.93 mill/uL (4.20-5.40); White Blood Cell (WBC) Count 20.1 thou/uL (4.8-10.8)
[2018-07-01 07:26] LABS: Anion Gap 9 mmol/L (10-20); BUN (Urea Nitrogen) 13 mg/dL (9.8-20.1); Calc. Creatinine Clearance 62 mL/min (70-130); Calcium 7.5 mg/dL (7.8-10.44); Carbon Dioxide 26 mmol/L (22-29); Chloride 103 mmol/L (98-107); Estimated GFR-MDRD 70; Glucose 92 mg/dL (70-105); Potassium 3.1 mmol/L (3.5-5.1); Sodium 135 mmol/L (136-145)
[2018-07-01] MEDS: Pantoprazole 40 MG VIAL IVP SCH (08:07)
[2018-07-01 08:23] LABS: Band 14 % (5-11); Lymphocytes 8 % (21-51); MDiff Complete? YES; Monocytes 4 % (0-10); Myelocyte 1 % (0-0); Neutrophil 72 % (42-75); Platelet Morphology Comment Appears Increased; Polychromasia SLIGHT = 2-3 cells (100X) (0-2/hpf); Reactive Lymphocytes 1 % (0-10)
[2018-07-01] MEDS: Sodium Chloride 0.9% 1,000 ML IV SCH (11:07)
--- NOTE | 2018-07-01 14:45 | PDOC.PN ---
- Subjective Encounter Start Date: 07/01/18 Encounter Start Time: 10:00 Subjective: pt up in bed is trying to cough up - Objective Vital Signs & Weight: Vital Signs (12 hours) Temp Pulse Resp BP BP Pulse Ox 07/01/18 13:48 94 20 07/01/18 11:09 98.3 F 94 16 118/66 98 07/01/18 08:00 95 07/01/18 07:31 99 07/01/18 07:28 95 20 99 07/01/18 07:15 98.5 F 89 16 112/67 95 07/01/18 04:30 98.3 F 88 20 100/59 L 100 Weight Admit Weight 114 lb 1.6 oz Weight 114 lb 1.6 oz I&O: 06/30/18 07/01/18 07/02/18 06:59 06:59 06:59 Intake Total 550 2072 240 Output Total 520 1475 Balance 30 597 240 Result Diagrams: 07/01/18 06:49 07/01/18 06:49 Additional Labs: Accuchecks 07/01/18 07/01/18 07/01/18 11:09 04:36 00:15 POC Glucose 129 H 107 114 H Phys Exam - Physical Examination Neck: no nodes, no JVD, supple, full ROM Respiratory: no wheezing, no rales, no rhonchi, wheezing present, clear to auscultation bilateral Cardiovascular: RRR, no significant murmur, no rub, gallop, irregular Dx/Plan (1) S/P ileostomy Code(s): Z93.2 - ILEOSTOMY STATUS Status: Acute (2) Acute encephalopathy Code(s): G93.40 - ENCEPHALOPATHY, UNSPECIFIED Status: Acute (3) Acute renal failure Status: Acute (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 Margins are clear - Plan pt on zosyn, cxr ordered -: pt's mentation has improved today -: will transfuse one unit of blood -: pt has finished her course of steroids. * . Review of Systems - Review of Systems Respiratory: negative: Cough, Dry, Shortness of Breath, Hemoptysis, SOB with Excertion, Pleuritic Pain, Sputum, Wheezing Cardiovascular: negative: chest pain, palpitations, orthopnea, paroxysmal nocturnal dyspnea, edema, light headedness, other Gastrointestinal: negative: Nausea, Vomiting, Abdominal Pain, Diarrhea, Constipation, Melena, Hematochezia, Other - Medications/Allergies Allergies/Adverse Reactions: Allergies Allergy/AdvReac Type Severity Reaction Status Date / Time No Known Drug Allergies Allergy Verified 06/28/18 06:09 Medications: Current Medications Albuterol Sulfate (Albuterol Sulfate) 1.25 mg NEB Q4H PRN PRN Reason: Wheezing Albuterol/Ipratropium (Duoneb) 3 ml EZPAP TID-RT [facility] Last Admin: 07/01/18 13:48 Dose: 3 ml Dextrose/Water (Dextrose 50%) 25 gm SLOW IVP PRN PRN PRN Reason: Hypoglycemia Diphenhydramine HCl (Benadryl) 25 mg IVP Q3H PRN PRN Reason: Itching Diphenhydramine HCl (Benadryl) 25 mg PO Q3H PRN PRN Reason: Itching Diphenhydramine HCl (Benadryl) 25 mg IM Q3H PRN PRN Reason: Itching Enoxaparin Sodium (Lovenox) 40 mg SC 2100 [facility] Last Admin: 06/30/18 20:10 Dose: 40 mg Fentanyl (Sublimaze) 25 mcg SLOW IVP Q2H PRN PRN Reason: Mild Pain (1-3) Fentanyl (Sublimaze) 50 mcg SLOW IVP Q2H PRN PRN Reason: Moderate to Severe Pain (6-10) Glucagon (Glucagon) 1 mg IM PRN PRN PRN Reason: Hypoglycemia Guaifenesin (Robitussin Sf) 200 mg PO Q4H PRN PRN Reason: Cough Last Admin: 06/30/18 22:53 Dose: 200 mg Hydralazine HCl (Apresoline) 10 mg SLOW IVP Q4H PRN PRN Reason: SBP > 170 or DBP > 100 Dextrose/Water (D5w) 1,000 mls @ 0 mls/hr IV .Q0M PRN PRN Reason: Hypoglycemia Piperacillin Sod/Tazobactam (Sod 3.375 gm/ Sodium Chloride) 100 mls @ 200 mls/ hr IVPB 0300,0900,1500,2100 [facility] Last Admin: 07/01/18 14:41 Dose: 100 mls Magnesium Sulfate 10 meq/Multivitamins 10 ml/ Chromium/Copper/Manganese/Seleni/ Zn 5 ml/ Amino Acids/Electrolytes/Fat Emulsion Intravenous 2,267.463 mls @ 94.478 mls/hr IV 2200 [facility] Last Admin: 06/30/18 22:25 Dose: 2,267.463 mls Sodium Chloride (Normal Saline 0.9%) 1,000 mls @ 75 mls/hr IV .[id number] [facility] Last Admin: 07/01/18 11:07 Dose: Not Given Insulin Human Regular (Humulin R) 0 units SC .MILD SLIDING SCALE PRN PRN Reason: Mild Correctional Scale Morphine Sulfate (Morphine) 2 mg SLOW IVP Q2H PRN PRN Reason: Mild Pain (1-3) Morphine Sulfate (Morphine) 4 mg SLOW IVP Q2H PRN PRN Reason: Moderate Pain (4-6) Naloxone HCl (Narcan) 0.2 mg IV Q5MIN PRN PRN Reason: Opiate Reversal Ondansetron HCl (Zofran) 4 mg IVP Q6H PRN PRN Reason: Nausea/Vomiting Ondansetron HCl (Zofran Odt) 4 mg PO Q6H PRN PRN Reason: Nausea/Vomiting Pantoprazole Sodium (Protonix) 40 mg IVP DAILY [facility] Last Admin: 07/01/18 08:07 Dose: 40 mg Promethazine HCl (Phenergan) 12.5 mg IM Q4H PRN PRN Reason: Nausea/Vomiting Quetiapine Fumarate (Seroquel) 25 mg PO HS [facility] Last Admin: 06/30/18 20:10 Dose: 25 mg Sodium Chloride (Flush - Normal Saline) 10 ml IVF PRN PRN PRN Reason: Saline Flush Last Admin: 06/29/18 08:00 Dose: 10 ml Zolpidem Tartrate (Ambien) 5 mg PO HSPRN PRN PRN Reason: Insomnia Last Admin: 06/29/18 20:04 Dose: 5 mg
--- NOTE | 2018-07-01 14:53 | RAD ---
PORTABLE UPRIGHT FRONTAL CHEST RADIOGRAPH: Date: 07-01-18 Comparison: 06-18-18 History: Leukocytosis FINDINGS: There is a left upper extremity PICC, distal tip overlying the cavoatrial junction region. There is n ew interstitial density in bilateral perihilar regions extending into bilateral lung bases with mild new bibasilar airspace disease. No large volume pleural effusion. No focal consolidation. IMPRESSION: Interstitial and alveolar opacity in the perihilar regions in both lung bases. Findings suggest infec tious pneumonitis/aspiration and/or pulmonary edema. Recommend short term follow up imaging following treatment to document resolution. POS: GENNARO
--- NOTE | 2018-07-01 15:23 | PRG ---
DATE OF SERVICE: 07/01/2018 SUBJECTIVE: Ms. Kwan is doing well. She is less confused today. She is still having confusion after her IV pain medicine; however, family is interested in non-narcotic options. She did get out of bed today. They were concerned about lower hemoglobin. She is going to get a unit of blood. OBJECTIVE: VITAL SIGNS: She is afebrile. Her vital signs are stable. She is less tachy. Her blood pressure is 118/66. Urine output remains adequate. She has got 600 of stool in her bag. ABDOMEN: Soft. The wound VAC is in place. Her ostomy is viable. LABORATORY DATA: White blood cell count is 20, hemoglobin is 6.4, and platelet count is 437. Her bandemia is resolving. Creatinine is now normal, back to normal at 0.85; potassium is 3.1; and calcium is 7.5. ASSESSMENT: Status post ileocecectomy for Crohn's with T1 N0 adenocarcinoma found with subsequent anastomotic leak, now washout and end ileostomy. PLAN: Continue TPN until tolerating full liquid diet. We will start tramadol for pain. Continue to mobilize over the weekend. Dr. Herron covering for me. Job ID: [id number]
[2018-07-01] MEDS: Enoxaparin Sodium 40 MG/0.4 ML SYRINGE SC SCH (20:54)
[2018-07-01] MEDS: Ondansetron PF 4 MG/2 ML Vial IVP PRN (20:58)
[2018-07-01] MEDS: MAGNESIUM SULFATE IV SCH (22:23)
[2018-07-01] MEDS: MULTIVITAMINS IV SCH (22:23)
[2018-07-01] MEDS: [UNRECOGNIZED DRUG - OTHER] IV SCH (22:23)
[2018-07-01] MEDS: MULTITRACE IV SCH (22:23)
[2018-07-02] MEDS: Piperacillin/Tazobactam 3.375 GM in Sodium Chloride 0.9% 100 ML IVPB SCH ×4 (03:56→20:19)
[2018-07-02 04:57] LABS: Anion Gap 13 mmol/L (10-20); BUN (Urea Nitrogen) 15 mg/dL (9.8-20.1); Calc. Creatinine Clearance 74 mL/min (70-130); Calcium 8.1 mg/dL (7.8-10.44); Carbon Dioxide 26 mmol/L (22-29); Chloride 97 mmol/L (98-107); Estimated GFR-MDRD 86; Glucose 90 mg/dL (70-105); Potassium 3.3 mmol/L (3.5-5.1); Sodium 133 mmol/L (136-145)
[2018-07-02 05:04] LABS: Band 21 % (5-11); Hemoglobin 9.4 g/dL (12.0-16.0); Lymphocytes 3 % (21-51); MDiff Complete? YES; Mean Corpuscular HGB CONC 33.2 g/dL (32.0-36.0); Mean Corpuscular Hemoglobin 31.5 pg (27.0-31.0); Mean Platelet Volume 6.4 fL (7.4-10.4); Metamyelocyte 2 % (0-0); Monocytes 5 % (0-10); Neutrophil 69 % (42-75); Platelet Count 472 thou/uL (130-400); Platelet Morphology Comment Appears Increased; RBC Distribution Width 14.3 % (11.5-14.5); Red Blood Cell (RBC) Count 2.99 mill/uL (4.20-5.40); White Blood Cell (WBC) Count 16.5 thou/uL (4.8-10.8)
[2018-07-02] MEDS: Pantoprazole 40 MG VIAL IVP SCH (08:02)
[2018-07-02] MEDS: Sodium Chloride 0.9% 1,000 ML IV SCH ×3 (08:06→22:24)
[2018-07-02] MEDS ORDERED: Potassium Chloride 20 MEQ TAB PO SCH (10:00)
[2018-07-02 11:21] LABS: Magnesium 1.6 mg/dL (1.6-2.6); Phosphorus 3.3 mg/dL (2.3-4.7)
[2018-07-02] MEDS: Diphenoxylate HCl/Atropine Tablet PO SCH ×2 (15:02→20:18)
--- NOTE | 2018-07-02 16:31 | PDOC.PN ---
- Subjective Encounter Start Date: 07/02/18 Encounter Start Time: 10:15 Subjective: pt up in chair no complains - Objective Vital Signs & Weight: Vital Signs (12 hours) Temp Pulse Resp BP Pulse Ox 07/02/18 13:08 79 18 96 07/02/18 08:00 98.7 F 109 H 18 130/73 95 07/02/18 07:09 82 20 96 Weight Admit Weight 114 lb 1.6 oz Weight 114 lb 1.6 oz I&O: 07/01/18 07/02/18 07/03/18 06:59 06:59 06:59 Intake Total 2 2112 Output Total 1475 1925 Balance 597 187 Result Diagrams: 07/02/18 04:23 07/02/18 04:23 Additional Labs: Accuchecks 07/02/18 07/02/18 07/01/18 11:13 04:56 20:02 POC Glucose 115 H 112 H 124 H 07/01/18 16:38 POC Glucose 123 H Phys Exam - Physical Examination Neck: no nodes, no JVD, supple, full ROM Respiratory: no wheezing, no rales, no rhonchi, wheezing present, clear to auscultation bilateral Cardiovascular: RRR, no significant murmur, no rub, gallop, irregular Gastrointestinal: soft, positive bowel sounds Musculoskeletal: no edema, pulses present, edema present Dx/Plan (1) S/P ileostomy Code(s): Z93.2 - ILEOSTOMY STATUS Status: Acute (2) Acute encephalopathy Code(s): G93.40 - ENCEPHALOPATHY, UNSPECIFIED Status: Acute (3) Acute renal failure Status: Acute (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 Margins are clear - Plan wbc improving continue zosyn -: encouraged to ambulate, ? discontinue ayers -: pt tolerating liquid diet if ok with surgery advance to soft -: K replaced * . Review of Systems - Review of Systems Cardiovascular: negative: chest pain, palpitations, orthopnea, paroxysmal nocturnal dyspnea, edema, light headedness, other Gastrointestinal: negative: Nausea, Vomiting, Abdominal Pain, Diarrhea, Constipation, Melena, Hematochezia, Other Genitourinary: negative: Dysuria, Frequency, Incontinence, Hematuria, Retention , Other - Medications/Allergies Allergies/Adverse Reactions: Allergies Allergy/AdvReac Type Severity Reaction Status Date / Time No Known Drug Allergies Allergy Verified 06/28/18 06:09 Medications: Current Medications Albuterol Sulfate (Albuterol Sulfate) 1.25 mg NEB Q4H PRN PRN Reason: Wheezing Albuterol/Ipratropium (Duoneb) 3 ml EZPAP TID-RT [facility] Last Admin: 07/02/18 13:08 Dose: 3 ml Dextrose/Water (Dextrose 50%) 25 gm SLOW IVP PRN PRN PRN Reason: Hypoglycemia Diphenhydramine HCl (Benadryl) 25 mg IVP Q3H PRN PRN Reason: Itching Diphenhydramine HCl (Benadryl) 25 mg PO Q3H PRN PRN Reason: Itching Diphenhydramine HCl (Benadryl) 25 mg IM Q3H PRN PRN Reason: Itching Diphenoxylate HCl/Atropine (Lomotil) 1 tab PO 0300,0900,1500,2100 [facility] Last Admin: 07/02/18 15:02 Dose: 1 tab Enoxaparin Sodium (Lovenox) 40 mg SC 2100 [facility] Last Admin: 07/01/18 20:54 Dose: 40 mg Fentanyl (Sublimaze) 25 mcg SLOW IVP Q2H PRN PRN Reason: Mild Pain (1-3) Fentanyl (Sublimaze) 50 mcg SLOW IVP Q2H PRN PRN Reason: Moderate to Severe Pain (6-10) Glucagon (Glucagon) 1 mg IM PRN PRN PRN Reason: Hypoglycemia Guaifenesin (Robitussin Sf) 200 mg PO Q4H PRN PRN Reason: Cough Last Admin: 06/30/18 22:53 Dose: 200 mg Hydralazine HCl (Apresoline) 10 mg SLOW IVP Q4H PRN PRN Reason: SBP > 170 or DBP > 100 Dextrose/Water (D5w) 1,000 mls @ 0 mls/hr IV .Q0M PRN PRN Reason: Hypoglycemia Piperacillin Sod/Tazobactam (Sod 3.375 gm/ Sodium Chloride) 100 mls @ 200 mls/ hr IVPB 0300,0900,1500,2100 [facility] Last Admin: 07/02/18 15:03 Dose: 100 mls Magnesium Sulfate 10 meq/Multivitamins 10 ml/ Chromium/Copper/Manganese/Seleni/ Zn 5 ml/ Amino Acids/Electrolytes/Fat Emulsion Intravenous 2,267.463 mls @ 94.478 mls/hr IV 2200 [facility] Last Admin: 07/01/18 22:23 Dose: 2,267.463 mls Sodium Chloride (Normal Saline 0.9%) 1,000 mls @ 75 mls/hr IV .[id number] [facility] Last Admin: 07/02/18 15:26 Dose: Not Given Insulin Human Regular (Humulin R) 0 units SC .MILD SLIDING SCALE PRN PRN Reason: Mild Correctional Scale Morphine Sulfate (Morphine) 2 mg SLOW IVP Q2H PRN PRN Reason: Mild Pain (1-3) Morphine Sulfate (Morphine) 4 mg SLOW IVP Q2H PRN PRN Reason: Moderate Pain (4-6) Naloxone HCl (Narcan) 0.2 mg IV Q5MIN PRN PRN Reason: Opiate Reversal Ondansetron HCl (Zofran) 4 mg IVP Q6H PRN PRN Reason: Nausea/Vomiting Last Admin: 07/01/18 20:58 Dose: 4 mg Ondansetron HCl (Zofran Odt) 4 mg PO Q6H PRN PRN Reason: Nausea/Vomiting Pantoprazole Sodium (Protonix) 40 mg IVP DAILY [facility] Last Admin: 07/02/18 08:02 Dose: 40 mg Promethazine HCl (Phenergan) 12.5 mg IM Q4H PRN PRN Reason: Nausea/Vomiting Quetiapine Fumarate (Seroquel) 25 mg PO HS [facility] Last Admin: 07/01/18 20:54 Dose: 25 mg Sodium Chloride (Flush - Normal Saline) 10 ml IVF PRN PRN PRN Reason: Saline Flush Last Admin: 06/29/18 08:00 Dose: 10 ml Tramadol HCl (Ultram) 50 mg PO Q6H PRN PRN Reason: Moderate Pain (4-6) Tramadol HCl (Ultram) 100 mg PO Q6H PRN PRN Reason: Severe Pain (6-10) Zolpidem Tartrate (Ambien) 5 mg PO HSPRN PRN PRN Reason: Insomnia Last Admin: 06/29/18 20:04 Dose: 5 mg
[2018-07-02] MEDS ORDERED: Acetaminophen 325 MG TAB PO PRN (16:40)
--- NOTE | 2018-07-02 17:20 | PDOC.GSPN ---
Surgery Progress Note: Subj - Subjective Narrative: Patient is feeling better. She has not required any pain medication today.Her VAC was changed earlier today and she tolerated that. Her ileostomy is putting out a lot more but the patient's appetite is not very good and she has not been taking in much by mouth. White count has come down from 20-16 and hemoglobin has gone up after her transfusion. Her ileostomy is healthy and her abdomen is soft and nondistended and minimally tender. Assessment/plan Crohn's disease status post leak and dehiscence. She is improving and has good function of her ileostomy. Her output was over a liter yesterday so I'm going to start some Lomotil. I am advancing her diet and have asked the dietitian to talk to her about ileostomy diet.. The wound care team is teaching her how to manage her ileostomy, although she will likely need home health to assist with this after discharge. Her oral intake has been poor so I am going to leave her TPN on for now. Mobility is better so we will discontinue her Sanders catheter Surgery Progress Note: Obj - Vital signs Vital signs: Vital Signs - Most Recent Temp Pulse Resp BP Pulse Ox 98.7 F 79 18 130/73 96 07/02/18 08:00 07/02/18 13:08 07/02/18 13:08 07/02/18 08:00 07/02/18 13:08 Surgery Progress Note: Results - Labs Result Diagrams: 07/02/18 04:23 07/02/18 04:23 Lab results: Laboratory Results - last 24 hr 07/02/18 07/02/18 07/02/18 04:23 04:56 11:13 POC Glucose 112 H 115 H Phosphorus 3.3 Magnesium 1.6 07/02/18 16:49 POC Glucose 134 H Phosphorus Magnesium
[2018-07-02] MEDS: Enoxaparin Sodium 40 MG/0.4 ML SYRINGE SC SCH (20:17)
[2018-07-02] MEDS: [UNRECOGNIZED DRUG - OTHER] IV SCH (22:16)
[2018-07-02] MEDS: MAGNESIUM SULFATE IV SCH (22:16)
[2018-07-02] MEDS: MULTITRACE IV SCH (22:16)
[2018-07-02] MEDS: MULTIVITAMINS IV SCH (22:16)
[2018-07-03] MEDS: Acetaminophen 325 MG TAB PO PRN ×2 (00:33→17:04)
[2018-07-03] MEDS: Diphenoxylate HCl/Atropine Tablet PO SCH ×4 (02:59→20:22)
[2018-07-03] MEDS: Piperacillin/Tazobactam 3.375 GM in Sodium Chloride 0.9% 100 ML IVPB SCH ×4 (02:59→20:24)
[2018-07-03] MEDS: Pantoprazole 40 MG VIAL IVP SCH (07:45)
[2018-07-03] MEDS: Sodium Chloride 0.9% 1,000 ML IV SCH (16:04)
--- NOTE | 2018-07-03 16:34 | PDOC.PN ---
- Subjective Encounter Start Date: 07/03/18 Encounter Start Time: 16:25 Subjective: f/u s/p abd washout with ileostomy, TPN and local wound care with wound -: vac POD #5. - Objective MAR Reviewed: Yes Vital Signs & Weight: Vital Signs (12 hours) Temp Pulse Resp BP BP Pulse Ox 07/03/18 13:12 98.3 F 90 18 127/76 96 07/03/18 12:33 96 18 96 07/03/18 08:51 98.2 F 100 18 135/68 95 07/03/18 08:00 95 07/03/18 07:38 92 21 H 07/03/18 04:53 98.7 F 93 21 H 120/73 91 L Weight Admit Weight 114 lb 1.6 oz Weight 114 lb 1.6 oz I&O: 07/02/18 07/03/18 07/04/18 06:59 06:59 06:59 Intake Total 2112 3953 Output Total 1925 4425 Balance 187 -472 Result Diagrams: 07/02/18 04:23 07/02/18 04:23 Additional Labs: Accuchecks 07/03/18 07/03/18 07/02/18 11:48 05:00 20:06 POC Glucose 135 H 124 H 117 H 07/02/18 16:49 POC Glucose 134 H Laboratory Tests 06/29/18 06/30/18 07/01/18 05:22 07:08 06:49 WBC 38.0 H 34.3 H 20.1 H Hgb 10.0 L 7.8 L 6.4 L Plt Count 583 H 544 H 437 H Band Neuts % (Manual) 27 H 29 H 14 H Potassium Phosphorus Magnesium 07/02/18 07/02/18 07/02/18 04:23 04:23 04:23 WBC Hgb Plt Count Band Neuts % (Manual) 21 H Potassium 3.3 L Phosphorus 3.3 Magnesium 1.6 Radiology Reviewed by me: Yes (PCXR - bibasilar opacities) Phys Exam - Physical Examination Constitutional: NAD HEENT: PERRLA, sclera anicteric, oral pharynx no lesions Neck: no nodes, no JVD, supple, full ROM diminished in bases Respiratory: no wheezing, no rales, no rhonchi S1, S2 Cardiovascular: RRR, no significant murmur, no rub, gallop + ileostomy with liquid stool, wound vac in place Gastrointestinal: positive bowel sounds Musculoskeletal: no edema, pulses present Neurological: normal sensation, moves all 4 limbs Psychiatric: A&O x 3 Skin: normal turgor, cap refill <2 seconds Dx/Plan (1) Acute encephalopathy Code(s): G93.40 - ENCEPHALOPATHY, UNSPECIFIED Status: Acute Comment: Intermittent, re-orientation techniques, limit psychotropes/pain medications (2) Acute renal failure Status: Acute Comment: Resolving, avoid nephrotoxic meds and limit contrast exposure (3) S/P ileostomy Code(s): Z93.2 - ILEOSTOMY STATUS Status: Acute Comment: POD #5, pain control (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 Margins are clear (5) Neutrophilic leukocytosis Code(s): D72.9 - DISORDER OF WHITE BLOOD CELLS, UNSPECIFIED Status: Acute Comment: Improving slowly, continue Zosyn, Wound vac and local wound care, serial CBC - Plan continue antibiotics, PT/OT, administrator social welfare, respiratory therapy, DVT proph w/ SCDs Stable currently -: Continue Nutritional support with TPN, po intake -: PT for mobilization -: Seroquel 25mg HS -: AM lab: BMP, CBC * WCT for local care/wound vac
[2018-07-03] MEDS: Enoxaparin Sodium 40 MG/0.4 ML SYRINGE SC SCH (20:28)
--- NOTE | 2018-07-03 22:27 | PDOC.GSPN ---
Surgery Progress Note: Subj - Subjective Narrative: Patient continues to slowly improve. She is not taking in much by mouth. So far today she is had half the doughnuts and a few bites of taken although she has been drinking plenty of fluids. Her ileostomy output was over a liter per shift yesterday but the last shift it went down to 475. Her VAC dressing is in place with minimal output and her ileostomy output is less watery and darker in color than yesterday. She is still on lipids although I don't see TPN bag. She states that she can't really drink Ensure. Assessment/plan: Continued poor oral intake. Combined calorie protein malnutrition. I encouraged her to try Jevity mighty shakes since she doesn't do well with Ensure. Her ileostomy output is down since starting Lomotil but she is still high risk for dehydration given her poor oral intake. Surgery Progress Note: Obj - Vital signs Vital signs: Vital Signs - Most Recent Temp Pulse Resp BP Pulse Ox 99.4 F 95 20 129/74 98 07/03/18 18:34 07/03/18 18:40 07/03/18 18:40 07/03/18 18:07 07/03/18 21:59 Surgery Progress Note: Results - Labs Result Diagrams: 07/02/18 04:23 07/02/18 04:23 Lab results: Laboratory Results - last 24 hr 07/03/18 07/03/18 07/03/18 11:48 16:53 20:44 POC Glucose 135 H 133 H 128 H
[2018-07-03] MEDS: MULTITRACE IV SCH (22:47)
[2018-07-03] MEDS: MULTIVITAMINS IV SCH (22:47)
[2018-07-03] MEDS: MAGNESIUM SULFATE IV SCH (22:47)
[2018-07-03] MEDS: [UNRECOGNIZED DRUG - OTHER] IV SCH (22:47)
[2018-07-03] MEDS: traMADol HCl 50 MG TAB PO PRN (23:30)
[2018-07-04] MEDS: Piperacillin/Tazobactam 3.375 GM in Sodium Chloride 0.9% 100 ML IVPB SCH ×4 (02:38→20:27)
[2018-07-04] MEDS: Diphenoxylate HCl/Atropine Tablet PO SCH ×4 (02:39→20:26)
[2018-07-04] MEDS: Pantoprazole 40 MG VIAL IVP SCH (08:37)
[2018-07-04] MEDS: Sodium Chloride 0.9% 1,000 ML IV SCH (08:39)
--- NOTE | 2018-07-04 09:51 | PDOC.PN ---
- Subjective Encounter Start Date: 07/04/18 Encounter Start Time: 10:50 Subjective: Patient feeling better today. Much clearer mentally. Abdominal soreness -: improving. Tolerating diet. - Objective MAR Reviewed: Yes Vital Signs & Weight: Vital Signs (12 hours) Temp Pulse Resp BP Pulse Ox 07/04/18 08:33 95 07/04/18 07:32 98.3 F 93 20 113/69 95 07/04/18 06:38 88 20 98 07/04/18 04:23 98.4 F 07/03/18 21:59 98 Weight Admit Weight 114 lb 1.6 oz Weight 114 lb 1.6 oz I&O: 07/03/18 07/04/18 07/05/18 06:59 06:59 06:59 Intake Total 3953 3696 Output Total 4496 1325 Balance -472 3261 Result Diagrams: 07/04/18 12:13 07/04/18 12:13 Additional Labs: Accuchecks 07/04/18 07/03/18 07/03/18 04:22 20:44 16:53 POC Glucose 121 H 128 H 133 H 07/03/18 11:48 POC Glucose 135 H Phys Exam - Physical Examination Constitutional: NAD HEENT: moist MMs Respiratory: no wheezing, no rales, no rhonchi Cardiovascular: RRR, no significant murmur Gastrointestinal: soft, positive bowel sounds wound vac in place Musculoskeletal: no edema Neurological: non-focal, moves all 4 limbs Psychiatric: normal affect, A&O x 3 Dx/Plan (1) S/P ileostomy Code(s): Z93.2 - ILEOSTOMY STATUS Status: Acute Comment: POD #6, pain control (2) Sepsis Code(s): A41.9 - SEPSIS, UNSPECIFIED ORGANISM Status: Acute Comment: from anastomotic leak, on Zosyn since 06/28/2018, leukocytosis improving (3) COPD exacerbation Code(s): J44.1 - CHRONIC OBSTRUCTIVE PULMONARY DISEASE W (ACUTE) EXACERBATION Status: Acute Comment: finished steroid course, will wean O2 as able, nebs prn (4) Crohn's disease Code(s): K50.90 - CROHN'S DISEASE, UNSPECIFIED, WITHOUT COMPLICATIONS Status: Chronic Qualifiers: Gastrointestinal tract location: small and large intestine Comment: s/p ileocecectomy for stricture and adenocarcinoma- completely removed with clear margins (5) Acute renal failure Status: Resolved Comment: Resolving, avoid nephrotoxic meds and limit contrast exposure (6) Acute encephalopathy Code(s): G93.40 - ENCEPHALOPATHY, UNSPECIFIED Status: Resolved Comment: Intermittent, re-orientation techniques, limit psychotropes/pain medications (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 Margins are clear (8) Hypokalemia Code(s): E87.6 - HYPOKALEMIA Status: Acute Comment: repeat BMP pending - Plan cont current plan of care, continue antibiotics, PT/OT, DVT proph w/lovenox, DVT proph w/SCDs * . - Discharge Day Encounter end time: 11:00
--- NOTE | 2018-07-04 12:17 | PDOC.GSPN ---
Surgery Progress Note: Subj - Subjective Patient reports: no new complaints Surgery Progress Note: Obj - Vital signs Vital signs: Vital Signs - Most Recent Temp Pulse Resp BP Pulse Ox 98.4 F 97 20 114/64 99 07/04/18 11:08 07/04/18 11:21 07/04/18 11:21 07/04/18 11:08 07/04/18 11:21 - Physical Exam General: no distress Respiratory: coarse breath sounds Abdomen: soft, non tender, nondistended Wound: wound vac Surgery Progress Note: Results - Labs Result Diagrams: 07/02/18 04:23 07/02/18 04:23 Lab results: Laboratory Results - last 24 hr 07/04/18 07/04/18 04:22 11:08 POC Glucose 121 H 122 H Surgery Progress Note: A/P - Problem (1) Crohn's disease Current Visit: No Code(s): K50.90 - CROHN'S DISEASE, UNSPECIFIED, WITHOUT COMPLICATIONS Status: Chronic Qualifiers: Gastrointestinal tract location: small and large intestine Assessment and Plan: Postop Washout and Ileostomy -wound stable with wound vac -continue PT -arrange home health
[2018-07-04 12:52] LABS: #Basophils 0.1 thou/uL (0.0-0.2); #Eosinphils 0.3 thou/uL (0.0-0.7); #Monocytes 1.2 thou/uL (0.11-0.59); #Neutrophils 12.2 thou/uL (1.40-6.50); %Basophils 0.4 % (0.0-1.0); %Eosinophils 1.9 % (0.0-10.0); %Lymphocytes 12.8 % (21.0-51.0); %Monocytes 7.6 % (0.0-10.0); %Neutrophils 77.3 % (42.0-75.0); Hemoglobin 9.5 g/dL (12.0-16.0); Mean Corpuscular Hemoglobin 30.9 pg (27.0-31.0); Mean Corpuscular Volume 96.3 fL (78.0-98.0); Mean Platelet Volume 6.8 fL (7.4-10.4); Platelet Count 437 thou/uL (130-400); RBC Distribution Width 14.2 % (11.5-14.5); Red Blood Cell (RBC) Count 3.09 mill/uL (4.20-5.40); White Blood Cell (WBC) Count 15.8 thou/uL (4.8-10.8)
[2018-07-04 12:58] LABS: Hemoglobin 9.7 g/dL (12.0-16.0); Mean Corpuscular HGB CONC 32.7 g/dL (32.0-36.0); Mean Corpuscular Hemoglobin 31.4 pg (27.0-31.0); Mean Corpuscular Volume 96.2 fL (78.0-98.0); Mean Platelet Volume 6.9 fL (7.4-10.4); Platelet Count 436 thou/uL (130-400); Red Blood Cell (RBC) Count 3.09 mill/uL (4.20-5.40); White Blood Cell (WBC) Count 15.7 thou/uL (4.8-10.8)
[2018-07-04 13:06] LABS: Anion Gap 14 mmol/L (10-20); BUN (Urea Nitrogen) 15 mg/dL (9.8-20.1); Calc. Creatinine Clearance 80 mL/min (70-130); Calcium 7.7 mg/dL (7.8-10.44); Carbon Dioxide 28 mmol/L (22-29); Chloride 94 mmol/L (98-107); Estimated GFR-MDRD Greater than 90; Glucose 106 mg/dL (70-105); Sodium 133 mmol/L (136-145)
[2018-07-04 13:19] LABS: Potassium 2.8 mmol/L (3.5-5.1)
[2018-07-04] MEDS: traMADol HCl 50 MG TAB PO PRN ×2 (13:28→20:28)
[2018-07-04] MEDS ORDERED: Potassium Chloride 40 MEQ in Premix Bag 1 BAG IVPB SCH (13:45)
[2018-07-04 14:18] LABS: Band 13 % (5-11); Eosinophils 1 % (0-10); Lymphocytes 13 % (21-51); MDiff Complete? YES; Monocytes 4 % (0-10); Myelocyte 1 % (0-0); Neutrophil 68 % (42-75); Ovalocytes SLIGHT = 2-5 cells (100X) (0-1/hpf); Platelet Morphology Comment Appears Increased; Polychromasia SLIGHT = 2-3 cells (100X) (0-2/hpf); Target Cells SLIGHT = 2-5 cells (100X) (0-1/hpf)
[2018-07-04] MEDS: Potassium Chloride 20 MEQ in Premix Bag 1 BAG IVPB SCH ×2 (15:36→18:36)
[2018-07-04] MEDS: Enoxaparin Sodium 40 MG/0.4 ML SYRINGE SC SCH (20:27)
[2018-07-05] MEDS: Piperacillin/Tazobactam 3.375 GM in Sodium Chloride 0.9% 100 ML IVPB SCH ×4 (02:21→20:55)
[2018-07-05] MEDS: Diphenoxylate HCl/Atropine Tablet PO SCH ×3 (08:30→20:53)
[2018-07-05] MEDS: Pantoprazole 40 MG VIAL IVP SCH (08:30)
--- NOTE | 2018-07-05 08:36 | PDOC.PN ---
- Subjective Encounter Start Date: 07/05/18 Encounter Start Time: 09:20 Subjective: Patient continues to feel a little better each day. Eating ok. No vomiting. -: No fever. - Objective MAR Reviewed: Yes Vital Signs & Weight: Vital Signs (12 hours) Temp Pulse Resp BP BP Pulse Ox 07/05/18 07:30 99.7 F H 104 H 20 108/68 95 07/05/18 06:21 101 H 20 96 07/05/18 00:42 99.8 F H 107 H 20 108/66 96 Weight Admit Weight 114 lb 1.6 oz Weight 114 lb 1.6 oz I&O: 07/04/18 07/05/18 07/06/18 06:59 06:59 06:59 Intake Total 3696 2590 Output Total 1325 2000 Balance 2371 590 Result Diagrams: 07/04/18 12:13 07/05/18 08:19 Additional Labs: Accuchecks 07/04/18 07/04/18 07/04/18 19:47 17:00 11:08 POC Glucose 98 90 122 H Phys Exam - Physical Examination Constitutional: NAD HEENT: moist MMs Respiratory: no wheezing, no rales, no rhonchi on 3L NC O2 Cardiovascular: RRR Gastrointestinal: soft, positive bowel sounds wound vac in place, minimal surrounding erythema improving Musculoskeletal: no edema Neurological: non-focal, moves all 4 limbs Psychiatric: normal affect, A&O x 3 Dx/Plan (1) S/P ileostomy Code(s): Z93.2 - ILEOSTOMY STATUS Status: Acute Comment: POD #6, pain control (2) Sepsis Code(s): A41.9 - SEPSIS, UNSPECIFIED ORGANISM Status: Acute Comment: from anastomotic leak, on Zosyn since 06/28/2018, leukocytosis improving (3) COPD exacerbation Code(s): J44.1 - CHRONIC OBSTRUCTIVE PULMONARY DISEASE W (ACUTE) EXACERBATION Status: Acute Comment: finished steroid course, will wean O2 as able, nebs prn (4) Crohn's disease Code(s): K50.90 - CROHN'S DISEASE, UNSPECIFIED, WITHOUT COMPLICATIONS Status: Chronic Qualifiers: Gastrointestinal tract location: small and large intestine Comment: s/p ileocecectomy for stricture and adenocarcinoma- completely removed with clear margins (5) Acute renal failure Status: Resolved Comment: Resolving, avoid nephrotoxic meds and limit contrast exposure (6) Acute encephalopathy Code(s): G93.40 - ENCEPHALOPATHY, UNSPECIFIED Status: Resolved Comment: Intermittent, re-orientation techniques, limit psychotropes/pain medications (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 Margins are clear (8) Hypokalemia Code(s): E87.6 - HYPOKALEMIA Status: Resolved Comment: continue to monitor for reoccurance - Plan cont current plan of care, continue antibiotics, PT/OT, DVT proph w/lovenox, DVT proph w/SCDs * . - Discharge Day Encounter end time: 09:30
[2018-07-05 09:15] LABS: Anion Gap 11 mmol/L (10-20); BUN (Urea Nitrogen) 14 mg/dL (9.8-20.1); Calc. Creatinine Clearance 67 mL/min (70-130); Calcium 7.8 mg/dL (7.8-10.44); Carbon Dioxide 28 mmol/L (22-29); Chloride 94 mmol/L (98-107); Estimated GFR-MDRD 76; Glucose 78 mg/dL (70-105); Potassium 3.7 mmol/L (3.5-5.1); Sodium 129 mmol/L (136-145)
--- NOTE | 2018-07-05 10:10 | PRG ---
DATE OF SERVICE: 07/05/2018 SUBJECTIVE: Ms. Kwan has still not been out of the room, walking in the manuel. She feels more tired today. Yesterday, she ate a good portion of her GI soft diet. Denies nausea, vomiting. I upped the dose on her Lomotil yesterday. OBJECTIVE: VITAL SIGNS: She is afebrile. Vital signs are stable. Stool output was 200 overnight. Multiple voids. ABDOMEN: Soft. Wound VAC is in place. Ostomy mucosa is viable. There is fairly liquid looking stool in the bag. ASSESSMENT: 1. Postop ileostomy. 2. Abdominal washout. 3. Deconditioning. PLAN: She really needs to be more active, go for a walking program yesterday, but no one saw her. Her lack of mobility is affecting her ability to discharge so I recommended she move more aggressive on being out of bed today, which she is interested in. We briefly discussed rehab or long-term, but she wants to go home, so I discussed that is even more important for her to be more active. Continue GI soft diet, likely home in the next 48 to 72 hours. Job ID: [id number]
[2018-07-05] MEDS: traMADol HCl 50 MG TAB PO PRN (14:03)
[2018-07-05] MEDS: Enoxaparin Sodium 40 MG/0.4 ML SYRINGE SC SCH (20:54)
[2018-07-05] MEDS: Acetaminophen 325 MG TAB PO PRN (20:55)
[2018-07-06] MEDS: Piperacillin/Tazobactam 3.375 GM in Sodium Chloride 0.9% 100 ML IVPB SCH ×4 (01:50→20:37)
[2018-07-06] MEDS: Acetaminophen 325 MG TAB PO PRN (06:31)
--- NOTE | 2018-07-06 08:03 | PDOC.PN ---
- Subjective Encounter Start Date: 07/06/18 Encounter Start Time: 10:30 Subjective: Patient reports ambulating once already today, will take a rest -: and ambulate again in afternoon. Abdominal soreness slowly -: improving. - Objective MAR Reviewed: Yes Vital Signs & Weight: Vital Signs (12 hours) Temp Pulse Resp BP Pulse Ox 07/06/18 06:54 99 16 96 07/06/18 04:54 100.0 F H 102 H 20 121/67 94 L 07/06/18 00:00 98.2 F 81 20 95/59 L 62 L Weight Admit Weight 114 lb 1.6 oz Weight 114 lb 1.6 oz I&O: 07/05/18 07/06/18 07/07/18 06:59 06:59 06:59 Intake Total 2589 1370 Output Total 1999 2049 Balance 590 -680 Result Diagrams: 07/04/18 12:13 07/05/18 08:19 Phys Exam - Physical Examination Constitutional: NAD HEENT: moist MMs Respiratory: no wheezing, no rales, no rhonchi requiring 3L NC Cardiovascular: RRR Gastrointestinal: soft, positive bowel sounds Musculoskeletal: no edema Neurological: non-focal, moves all 4 limbs Psychiatric: normal affect, A&O x 3 Dx/Plan (1) S/P ileostomy Code(s): Z93.2 - ILEOSTOMY STATUS Status: Acute Comment: POD #8, pain control (2) Sepsis Code(s): A41.9 - SEPSIS, UNSPECIFIED ORGANISM Status: Acute Comment: from anastomotic leak, on Zosyn since 06/28/2018, leukocytosis improving (3) COPD exacerbation Code(s): J44.1 - CHRONIC OBSTRUCTIVE PULMONARY DISEASE W (ACUTE) EXACERBATION Status: Acute Comment: finished steroid course, will wean O2 as able, nebs prn (4) Crohn's disease Code(s): K50.90 - CROHN'S DISEASE, UNSPECIFIED, WITHOUT COMPLICATIONS Status: Chronic Qualifiers: Gastrointestinal tract location: small and large intestine Comment: s/p ileocecectomy for stricture and adenocarcinoma- completely removed with clear margins (5) Acute renal failure Status: Resolved Comment: Resolving, avoid nephrotoxic meds and limit contrast exposure (6) Acute encephalopathy Code(s): G93.40 - ENCEPHALOPATHY, UNSPECIFIED Status: Resolved Comment: Intermittent, re-orientation techniques, limit psychotropes/pain medications (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 Margins are clear (8) Hypokalemia Code(s): E87.6 - HYPOKALEMIA Status: Resolved Comment: continue to monitor for reoccurance - Plan cont current plan of care, continue antibiotics, out of bed/ambulate patient ambulated with walking program yesterday 265ft, encouraged further -: ambulation * . - Discharge Day Encounter end time: 10:40
[2018-07-06] MEDS: Diphenoxylate HCl/Atropine Tablet PO SCH ×3 (09:30→20:36)
[2018-07-06] MEDS: Pantoprazole 40 MG VIAL IVP SCH (09:32)
[2018-07-06] MEDS: traMADol HCl 50 MG TAB PO PRN ×2 (14:38→20:36)
--- NOTE | 2018-07-06 15:18 | PDOC.GSPN ---
Surgery Progress Note: Subj - Subjective Patient reports: no new complaints, tolerating a regular diet Surgery Progress Note: Obj - Vital signs Vital signs: Vital Signs - Most Recent Temp Pulse Resp BP Pulse Ox 98.1 F 84 18 106/59 L 100 07/06/18 12:17 07/06/18 13:01 07/06/18 13:01 07/06/18 12:17 07/06/18 13:01 - Physical Exam General: no distress Cardiovascular: regular rate and rhythm Abdomen: soft, non tender, nondistended Wound: wound vac Surgery Progress Note: Results - Labs Result Diagrams: 07/04/18 12:13 07/05/18 08:19 Lab results: Laboratory Results - last 24 hr 07/06/18 11:13 POC Glucose 105 Surgery Progress Note: A/P - Problem (1) Crohn's disease Current Visit: No Code(s): K50.90 - CROHN'S DISEASE, UNSPECIFIED, WITHOUT COMPLICATIONS Status: Chronic Qualifiers: Gastrointestinal tract location: small and large intestine Assessment and Plan: Wound vac, ileostomy -More active walking in manuel -Likely DC tomorrow of Wednesday if home health and home vac set up
[2018-07-06] MEDS: Ondansetron PF 4 MG/2 ML Vial IVP PRN (19:41)
[2018-07-06] MEDS: Enoxaparin Sodium 40 MG/0.4 ML SYRINGE SC SCH (20:38)
[2018-07-07] MEDS: Piperacillin/Tazobactam 3.375 GM in Sodium Chloride 0.9% 100 ML IVPB SCH ×4 (03:37→20:38)
[2018-07-07 08:06] LABS: Anion Gap 14 mmol/L (10-20); BUN (Urea Nitrogen) 7 mg/dL (9.8-20.1); Calc. Creatinine Clearance 49 mL/min (70-130); Calcium 7.5 mg/dL (7.8-10.44); Carbon Dioxide 26 mmol/L (22-29); Chloride 95 mmol/L (98-107); Estimated GFR-MDRD 53; Glucose 97 mg/dL (70-105); Hemoglobin 7.9 g/dL (12.0-16.0); Mean Corpuscular HGB CONC 32.4 g/dL (32.0-36.0); Mean Corpuscular Hemoglobin 30.6 pg (27.0-31.0); Mean Corpuscular Volume 94.4 fL (78.0-98.0); Mean Platelet Volume 7.6 fL (7.4-10.4); Platelet Count 492 thou/uL (130-400); RBC Distribution Width 13.5 % (11.5-14.5); Red Blood Cell (RBC) Count 2.59 mill/uL (4.20-5.40); Sodium 132 mmol/L (136-145); White Blood Cell (WBC) Count 24.7 thou/uL (4.8-10.8)
[2018-07-07 08:11] LABS: Potassium 2.8 mmol/L (3.5-5.1)
[2018-07-07] MEDS: Diphenoxylate HCl/Atropine Tablet PO SCH ×3 (09:14→20:39)
[2018-07-07] MEDS: Pantoprazole 40 MG VIAL IVP SCH (09:14)
[2018-07-07] MEDS ORDERED: Potassium Chloride 40 MEQ in Premix Bag 1 BAG IVPB SCH (09:30)
--- NOTE | 2018-07-07 09:32 | PDOC.PN ---
- Subjective Encounter Start Date: 07/07/18 Encounter Start Time: 12:50 Subjective: Patient reports some abdominal pain as just had wound vac changed. -: No other complaints. Potassium dropped again this AM. - Objective MAR Reviewed: Yes Vital Signs & Weight: Vital Signs (12 hours) Temp Pulse Resp BP Pulse Ox 07/07/18 08:00 98.4 F 95 18 115/69 92 L 07/07/18 07:10 112 H 16 98 Weight Admit Weight 114 lb 1.6 oz Weight 114 lb 1.6 oz I&O: 07/06/18 07/07/18 07/08/18 06:59 06:59 06:59 Intake Total 1370 Output Total 2050 200 Balance -680 -200 Result Diagrams: 07/07/18 07:11 07/07/18 07:11 Additional Labs: Accuchecks 07/07/18 07/06/18 07/06/18 04:33 19:47 16:31 POC Glucose 95 140 H 145 H 07/06/18 11:13 POC Glucose 105 Phys Exam - Physical Examination Constitutional: NAD HEENT: moist MMs Respiratory: no wheezing, no rales, no rhonchi Cardiovascular: RRR Gastrointestinal: soft, positive bowel sounds wound vac in place, redness surrounding it resolved Musculoskeletal: no edema Neurological: non-focal, moves all 4 limbs Psychiatric: normal affect, A&O x 3 Dx/Plan (1) S/P ileostomy Code(s): Z93.2 - ILEOSTOMY STATUS Status: Acute Comment: POD #9, pain control (2) Sepsis Code(s): A41.9 - SEPSIS, UNSPECIFIED ORGANISM Status: Acute Comment: from anastomotic leak, on Zosyn since 06/28/2018, leukocytosis improving (3) COPD exacerbation Code(s): J44.1 - CHRONIC OBSTRUCTIVE PULMONARY DISEASE W (ACUTE) EXACERBATION Status: Acute Comment: finished steroid course, will wean O2 as able, nebs prn (4) Crohn's disease Code(s): K50.90 - CROHN'S DISEASE, UNSPECIFIED, WITHOUT COMPLICATIONS Status: Chronic Qualifiers: Gastrointestinal tract location: small and large intestine Comment: s/p ileocecectomy for stricture and adenocarcinoma- completely removed with clear margins (5) Acute renal failure Status: Resolved Comment: Resolving, avoid nephrotoxic meds and limit contrast exposure (6) Acute encephalopathy Code(s): G93.40 - ENCEPHALOPATHY, UNSPECIFIED Status: Resolved Comment: Intermittent, re-orientation techniques, limit psychotropes/pain medications (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 Margins are clear (8) Hypokalemia Code(s): E87.6 - HYPOKALEMIA Status: Acute Comment: reoccurance, will give IV repletion and start on twice a day oral supplementation - Plan cont current plan of care, continue antibiotics, PT/OT home tomorrow if can normalize potassium, Rx for home potassium -: sent to pharmacy * . - Discharge Day Encounter end time: 13:00
[2018-07-07 09:45] LABS: Band 3 % (5-11); Lymphocytes 11 % (21-51); MDiff Complete? YES; Monocytes 7 % (0-10); Neutrophil 79 % (42-75); Platelet Morphology Comment Appears Increased; RBC Morphology Normal
[2018-07-07] MEDS: Potassium Chloride 20 MEQ in Premix Bag 1 BAG IVPB SCH ×2 (10:34→12:12)
[2018-07-07] MEDS: traMADol HCl 50 MG TAB PO PRN ×2 (12:07→20:39)
[2018-07-07 15:39] LABS: Potassium 3.3 mmol/L (3.5-5.1)
[2018-07-07] MEDS: Potassium Chloride 10 MEQ TAB PO SCH (16:51)
--- NOTE | 2018-07-07 17:10 | PRG ---
DATE OF SERVICE: 07/07/2018 SUBJECTIVE: Ms. Kwan has no complaints. She has been ambulating in the manuel. No nausea or vomiting, tolerating regular food. Afebrile. Vital signs are stable. She still requires oxygen. Her stool output is about 500 mL a day. Her abdomen is soft. The wound VAC is in place. No guarding or rebound. Mucosa is pink and there is stool in the bag. LABORATORY DATA: White blood cell count today is 24, hemoglobin 7.9, normal differential. Creatinine is 1.08. Potassium was 2.8, repeat 3.3. ASSESSMENT: Postop ileostomy, abdominal washout. PLAN: Likely home in the next 24 to 48 hours. Job ID: [id number]
[2018-07-07] MEDS: Enoxaparin Sodium 40 MG/0.4 ML SYRINGE SC SCH (20:41)
[2018-07-08] MEDS: Piperacillin/Tazobactam 3.375 GM in Sodium Chloride 0.9% 100 ML IVPB SCH ×4 (03:19→20:24)
[2018-07-08 07:55] LABS: #Eosinphils 0.5 thou/uL (0.0-0.7); #Lymphocytes 1.8 thou/uL (1.20-3.40); #Monocytes 1.3 thou/uL (0.11-0.59); #Neutrophils 14.3 thou/uL (1.40-6.50); %Basophils 0.2 % (0.0-1.0); %Eosinophils 2.6 % (0.0-10.0); %Lymphocytes 10.1 % (21.0-51.0); %Monocytes 7.4 % (0.0-10.0); %Neutrophils 79.7 % (42.0-75.0); Hemoglobin 7.3 g/dL (12.0-16.0); Mean Corpuscular HGB CONC 31.8 g/dL (32.0-36.0); Mean Corpuscular Volume 94.4 fL (78.0-98.0); Mean Platelet Volume 7.8 fL (7.4-10.4); Platelet Count 563 thou/uL (130-400); RBC Distribution Width 13.6 % (11.5-14.5); Red Blood Cell (RBC) Count 2.43 mill/uL (4.20-5.40); White Blood Cell (WBC) Count 17.9 thou/uL (4.8-10.8)
[2018-07-08 08:09] LABS: Anion Gap 14 mmol/L (10-20); BUN (Urea Nitrogen) 7 mg/dL (9.8-20.1); Calc. Creatinine Clearance 40 mL/min (70-130); Calcium 7.7 mg/dL (7.8-10.44); Carbon Dioxide 25 mmol/L (22-29); Chloride 95 mmol/L (98-107); Estimated GFR-MDRD 42; Glucose 110 mg/dL (70-105); Potassium 3.1 mmol/L (3.5-5.1); Sodium 131 mmol/L (136-145)
[2018-07-08] MEDS: Pantoprazole 40 MG VIAL IVP SCH (08:39)
[2018-07-08] MEDS: Potassium Chloride 10 MEQ TAB PO SCH ×2 (08:39→16:52)
[2018-07-08] MEDS: Diphenoxylate HCl/Atropine Tablet PO SCH ×3 (08:39→20:24)
[2018-07-08] MEDS: traMADol HCl 50 MG TAB PO PRN (11:08)
--- NOTE | 2018-07-08 11:55 | PDOC.PN ---
- Subjective Encounter Start Date: 07/08/18 Encounter Start Time: 09:35 Subjective: No complaint expressed - Objective Vital Signs & Weight: Vital Signs (12 hours) Temp Pulse Resp BP Pulse Ox 07/08/18 08:00 97 07/08/18 07:53 97 07/08/18 07:45 91 20 97 07/08/18 07:41 98.3 F 92 16 109/66 97 Weight Admit Weight 114 lb 1.6 oz Weight 114 lb 1.6 oz I&O: 07/07/18 07/08/18 07/09/18 06:59 06:59 06:59 Intake Total 2420 Output Total 200 700 Balance -200 1720 Result Diagrams: 07/08/18 07:30 07/08/18 07:30 Additional Labs: Accuchecks 07/07/18 11:36 POC Glucose 127 H Phys Exam - Physical Examination HEENT: PERRLA Neck: no JVD Respiratory: clear to auscultation bilateral Cardiovascular: RRR Gastrointestinal: soft Musculoskeletal: no edema Neurological: moves all 4 limbs Dx/Plan (1) Hypokalemia Code(s): E87.6 - HYPOKALEMIA Status: Acute Comment: Due to poor intake. Check magnesium. Add aldactone. (2) S/P ileostomy Code(s): Z93.2 - ILEOSTOMY STATUS Status: Acute Comment: POD #9, pain control (3) Acute encephalopathy Code(s): G93.40 - ENCEPHALOPATHY, UNSPECIFIED Status: Resolved Comment: Intermittent, re-orientation techniques, limit psychotropes/pain medications (4) Acute renal failure Status: Resolved Comment: Resolving, avoid nephrotoxic meds and limit contrast exposure - Plan * .
[2018-07-08] MEDS ORDERED: Potassium Chloride 20 MEQ in Premix Bag 1 BAG IVPB SCH (12:30)
[2018-07-08] MEDS ORDERED: Magnesium 2 GM/50 ML 2 GM in Premix Bag 1 BAG IVPB SCH (13:15)
--- NOTE | 2018-07-08 14:30 | PRG ---
DATE OF SERVICE: 07/08/2018 SUBJECTIVE: Ms. Mariano potassium is still low today as is her magnesium. She is getting magnesium and potassium ordered by the hospitalist. She has no real complaints. She is ambulatory. Her wound VAC is set up and ready to go. She is tolerating regular food in small amounts. OBJECTIVE: VITAL SIGNS: She is afebrile and her vital signs are stable. She remains on 3 L nasal cannula. Stool 700s a day. ABDOMEN: Soft. Wound VAC in place. Ostomy is liquid. Mucosa is pink. ASSESSMENT: 1. Postop ileostomy abdominal washout. 2. Persistent low potassium, repleting K and magnesium today. PLAN: Recheck levels in the morning. I suspect she will be ready to go tomorrow. Dr. Oconnell will see her for me. Job ID: [id number]
[2018-07-08] MEDS: Acetaminophen 325 MG TAB PO PRN (16:51)
[2018-07-08] MEDS: Enoxaparin Sodium 40 MG/0.4 ML SYRINGE SC SCH (20:24)
[2018-07-09] MEDS: Piperacillin/Tazobactam 3.375 GM in Sodium Chloride 0.9% 100 ML IVPB SCH ×2 (02:20→08:30)
[2018-07-09] MEDS: traMADol HCl 50 MG TAB PO PRN ×2 (02:20→08:29)
[2018-07-09 06:34] LABS: Anion Gap 16 mmol/L (10-20); BUN (Urea Nitrogen) 7 mg/dL (9.8-20.1); Calc. Creatinine Clearance 38 mL/min (70-130); Calcium 7.6 mg/dL (7.8-10.44); Carbon Dioxide 20 mmol/L (22-29); Chloride 100 mmol/L (98-107); Estimated GFR-MDRD 40; Glucose 116 mg/dL (70-105); Magnesium 1.9 mg/dL (1.6-2.6); Potassium 3.9 mmol/L (3.5-5.1); Sodium 132 mmol/L (136-145)
[2018-07-09] MEDS ORDERED: Spironolactone 25 MG TAB PO SCH (08:00)
[2018-07-09] MEDS: Diphenoxylate HCl/Atropine Tablet PO SCH (08:29)
[2018-07-09] MEDS: Potassium Chloride 10 MEQ TAB PO SCH (08:30)
[2018-07-09] MEDS: Pantoprazole 40 MG VIAL IVP SCH (08:30)
[2018-07-09] MEDS ORDERED: Magnesium Oxide 400 MG TAB PO SCH (09:00)
--- NOTE | 2018-07-09 09:18 | PDOC.PN ---
- Subjective Encounter Start Date: 07/09/18 Encounter Start Time: 09:15 Subjective: No complaint expressed.. - Objective Vital Signs & Weight: Vital Signs (12 hours) Temp Pulse Resp BP Pulse Ox 07/09/18 07:34 97.8 F 92 20 119/74 97 Weight Admit Weight 114 lb 1.6 oz Weight 114 lb 1.6 oz I&O: 07/08/18 07/09/18 07/10/18 06:59 06:59 06:59 Intake Total 2420 2250 Output Total 700 Balance 1720 2250 Result Diagrams: 07/08/18 07:30 07/09/18 06:05 Phys Exam - Physical Examination Constitutional: NAD Neck: no JVD Respiratory: clear to auscultation bilateral Cardiovascular: RRR Gastrointestinal: non-tender (Ileostomy bag in place..) Musculoskeletal: no edema Neurological: moves all 4 limbs Psychiatric: A&O x 3 Dx/Plan (1) Hypokalemia Code(s): E87.6 - HYPOKALEMIA Status: Acute Comment: SERUM K nl,.. Continue Aldactone. Continue KCl for 3 days, the DC. Hypomagnesemia, supplemented. (2) S/P ileostomy Code(s): Z93.2 - ILEOSTOMY STATUS Status: Acute Comment: As per surgery/ PCP. (3) Acute encephalopathy Code(s): G93.40 - ENCEPHALOPATHY, UNSPECIFIED Status: Resolved Comment: Resolved. (4) Acute renal failure Status: Resolved Comment: Resolving, avoid nephrotoxic meds and limit contrast exposure - Plan * .
[2018-07-09 11:57] VITALS: BP 101/67; TEMP 97.5
--- NOTE | 2018-07-11 12:56 | DIS ---
DATE OF ADMISSION: 06/28/2018 DATE OF DISCHARGE: 07/09/2018 HOSPITAL COURSE: The patient reports feeling much better. She is tolerating liquids well. She is voiding well. She wants to go home per Dr. Hickey; if her magnesium and potassium were normal, she was ready to let her go home. PHYSICAL EXAMINATION: VITAL SIGNS: Her temperature is 97.8, pulse 92, and blood pressure 119/74. GENERAL: She is awake and alert. She has open midline wound with a wound VAC. Her ostomy is working fine, looks healthy. She has had 700 out from her ostomy, 200 from the middle abdomen. Her electrolytes; sodium is 132, potassium 3.9, her magnesium 1.9, and glucose 116. ASSESSMENT: Stable. PLAN: Discharged. Dr. Hickey has already written her prescriptions. She will follow up with Dr. Hickey in 2 weeks. She has been scheduled to have home health daily. Job ID: [id number]
== END 2018-07-09 12:17 | disposition home health service (06) | DRG 907 ==
LOC: ERS 02:22 → T4-B 03:19
PROVIDERS: ADMIT Surgery; ATTEND Surgery
PROC: 0D1B0Z4 Bypass Ileum to Cutaneous, Open Approach (ICD-10-PCS; principal; 2018-06-28)
PROC: 0DBE0ZZ Excision of Large Intestine, Open Approach (ICD-10-PCS; 2018-06-28)
PROC: 0DB80ZZ Excision of Small Intestine, Open Approach (ICD-10-PCS; 2018-06-28)
PROC: 02HV33Z Insertion of Infusion Device into Superior Vena Cava, Percutaneous Approach (ICD-10-PCS; 2018-06-29)
DX: T81.32XA Disruption of internal operation (surgical) wound, not elsewhere classified, initial encounter (principal); K65.1 Peritoneal abscess; A41.9 Sepsis, unspecified organism; G93.41 Metabolic encephalopathy; K91.89 Other postprocedural complications and disorders of digestive system; C17.2 Malignant neoplasm of ileum; K50.90 Crohn's disease, unspecified, without complications; N17.9 Acute kidney failure, unspecified; J44.1 Chronic obstructive pulmonary disease with (acute) exacerbation; E46 Unspecified protein-calorie malnutrition; E87.6 Hypokalemia; R76.11 Nonspecific reaction to tuberculin skin test without active tuberculosis; Z99.81 Dependence on supplemental oxygen; Z87.891 Personal history of nicotine dependence; Y83.2 Surgical operation with anastomosis, bypass or graft as the cause of abnormal reaction of the patient, or of later complication, without mention of misadventure at the time of the procedure; Z68.22 Body mass index [BMI] 22.0-22.9, adult
CPT/HCPCS: 36415; 36416; 36430; 36569; 71045; 80048; 80053; 83605; 83735; 84100; 85007; 85025; 85027; 86850; 86900; 86901; 88307; 94640; 94760; 96365; 96367; 96375; C1751; C9113; J0131; J1170; J1644; J1650; J2001; J2270; J2405; J2543; J2704; J3010; J3475; J3480; J7050; J7620; P9016

== ENCOUNTER 2018-07-15 15:56 | Inpatient (IN) | payer BC ==
[2018-07-15 16:40] LABS: #Basophils 0.1 thou/uL (0.0-0.2); #Eosinphils 0.3 thou/uL (0.0-0.7); #Lymphocytes 3.9 thou/uL (1.20-3.40); #Neutrophils 11.4 thou/uL (1.40-6.50); %Basophils 0.8 % (0.0-1.0); %Eosinophils 1.5 % (0.0-10.0); %Lymphocytes 21.9 % (21.0-51.0); %Monocytes 11.3 % (0.0-10.0); %Neutrophils 64.5 % (42.0-75.0); Hemoglobin 8.8 g/dL (12.0-16.0); Mean Corpuscular HGB CONC 32.7 g/dL (32.0-36.0); Mean Corpuscular Hemoglobin 30.5 pg (27.0-31.0); Mean Corpuscular Volume 93.1 fL (78.0-98.0); Mean Platelet Volume 6.4 fL (7.4-10.4); Platelet Count 994 thou/uL (130-400); RBC Distribution Width 13.9 % (11.5-14.5); White Blood Cell (WBC) Count 17.6 thou/uL (4.8-10.8)
--- NOTE | 2018-07-15 19:25 | CT ---
CT ABDOMEN AND PELVIS WITHOUT CONTRAST: 07/15/18 HISTORY: Abdominal pain. Bowel resection. Colostomy placement. COMPARISON: CT abdomen and pelvis 04/13/18. FINDINGS: The lung bases are clear. No pericardial effusion. There is an ostomy in the right lower quadrant of the abdomen which appears to be from patient's ileu m. Prior partial bowel resection. Just deep to the ostomy is a collection of fluid measuring 2.3 x 2. 7 x 3.3 cm (trans x AP x CC). This is deep to and abuts the rectus muscle just lateral to the opening for the ostia of the ostomy. No free air in the pelvis or the abdomen. The aortic contour is nonaneu rysmal. No hydroureteronephrosis or nephroureterolithiasis. Urinary bladder moderately distended. There appears to be a midline wound vac in place. No collection deep to the wound vac. IMPRESSION: Fluid collection measuring 2.3 x 2.7 x 3.3 cm (trans x AP x CC) just deep to the right rectus muscle along the lateral margin of the opening for the ostomy. This is concerning for underlying abscess. W ithout intravenous contrast, peripheral enhancement evaluation cannot be performed. No free air. This is the only collection of fluid in the abdomen or pelvis. No free fluid layering within the deep pel vis. POS: [facility]
[2018-07-15] MEDS ORDERED: MEROPENEM 1 GM/50 ML 1 GM in Premix Bag 1 BAG IVPB SCH (19:45)
[2018-07-15 20:02] LABS: ALT (SGPT) 28 U/L (8-55); AST (SGOT) 43 U/L (5-34); Albumin 2.8 g/dL (3.5-5.0); Alkaline Phosphatase 211 U/L (40-150); Anion Gap 14 mmol/L (10-20); BUN (Urea Nitrogen) 11 mg/dL (9.8-20.1); Bilirubin, Total 0.5 mg/dL (0.2-1.2); Calc. Creatinine Clearance 0 mL/min (70-130); Calcium 8.1 mg/dL (7.8-10.44); Carbon Dioxide 25 mmol/L (22-29); Chloride 89 mmol/L (98-107); Estimated GFR-MDRD 28; Glucose 81 mg/dL (70-105); Potassium 4.3 mmol/L (3.5-5.1); Protein, Total 6.8 g/dL (6.0-8.3); Sodium 124 mmol/L (136-145)
--- NOTE | 2018-07-15 21:28 | CON ---
DATE OF CONSULTATION: 07/15/2018 HISTORY OF PRESENT ILLNESS: The patient is a 52-year-old woman with history of Crohn disease. The patient is approximately four weeks status post a laparotomy with ileocecectomy and primary anastomosis and almost six weeks status post re-exploratory laparotomy, resection of the previous ileocolic anastomosis with end ileostomy. The patient was seen in the emergency department earlier today with feeling of malaise and abdominal pain. CT scan of the abdomen and pelvis was obtained, this reveals a 2.3 x 2.7 x 3.3 cm fluid collection adjacent to the ileostomy. I am asked to evaluate the patient for surgical management. The patient is awake and alert. She reports chronic fatigue, early satiety, and chronic anorexia. She denies any significant abdominal pain. PAST MEDICAL HISTORY: Significant for Crohn disease and chronic depression. PAST SURGICAL HISTORY: Pertinent for cholecystectomy, D and C, and most recent two laparotomies on June 17, 2018, and June 28, 2018. SOCIAL HISTORY: The patient is , lives at home with her . She has a [id number] cigarette smoking history and currently smokes a pack of cigarettes a day. She denies any ethanol or illicit drug abuse. FAMILY HISTORY: Pertinent for essential hypertension, diverticulosis coli, melanoma. MEDICATIONS: I reviewed all her current medications which are on record. ALLERGIES: THE PATIENT DENIES ANY KNOWN DRUG ALLERGIES. REVIEW OF SYSTEMS: Ten-point review of systems is essentially unremarkable except as stated in past medical history and chief complaint. PHYSICAL EXAMINATION: GENERAL: This reveals a 52-year-old, thin-appearing woman who is otherwise in no acute distress at time of my evaluation. HEART: Reveals regular rate and rhythm. No murmurs or gallops auscultated. LUNGS: Clear to auscultation bilaterally. Breathing, regular, nonlabored. ABDOMEN: Soft and nondistended. Ileostomy is viable and functional with liquid stool. Midline incision is closed with a wound VAC. She has no significant abdominal tenderness to palpation. Clearly no gross rebound tenderness present. NEUROLOGIC: Reveals no focal deficits present. LABORATORY FINDINGS: Today is significant for CBC with 17,600 white blood cells, hemoglobin and hematocrit 8.8 and 27.0 respectively. Platelet count is also markedly elevated at 994,000. Metabolic profile; sodium 124, potassium is 4.3, chloride is 89, BUN is 11, creatinine is 1.89, glucose is 81, lactic acid is 1.1. AST and ALT are 43 and 28 respectively. Alkaline phosphatase is 211. I have personally reviewed the CT scan of the abdomen and pelvis, which reveals the fluid collection as I described above. No pneumoperitoneum is present. IMPRESSION: 1. Four weeks status post exploratory laparotomy with ileocecectomy and primary ileocolostomy. 2. Six weeks status post re-exploratory laparotomy with resection of the ileocolic anastomosis and ileostomy formation. 3. 2.3 x 2.7 x 3.3 cm right-sided peritoneal abscess. 4. Leukocytosis and thrombocytosis secondary to #3. 5. Acute hyponatremia. 6. Acute kidney injury, likely secondary to dehydration from large fluid loss from the ileostomy. RECOMMENDATIONS: 1. Fluid resuscitation and broad-spectrum antibiotic therapy. 2. Interventional radiology for percutaneous abscess drainage. There is no acute surgical indication for this patient at this time. However, General Surgery will follow along with you and make further recommendations as necessary. Thank you again, Dr. Villatoro, for allowing us the opportunity to participate in the care of this patient. I did discuss the above findings and recommendations with the patient and her at bedside. Job ID: [id number]
[2018-07-15] MEDS ORDERED: HYDROcodone/Acetaminophen 5/325 mg Tablet PO PRN ×2 (21:54)
[2018-07-15] MEDS ORDERED: Ondansetron PF 4 MG/2 ML Vial IVP PRN (21:54)
[2018-07-15] MEDS ORDERED: Sodium Chloride 0.9% 1,000 ML IV SCH (21:54)
[2018-07-15] MEDS ORDERED: Ondansetron ODT 4 MG TAB SL PRN (21:54)
[2018-07-15] MEDS ORDERED: Acetaminophen 325 MG TAB PO PRN (21:54)
--- NOTE | 2018-07-15 22:14 | HP ---
CHIEF COMPLAINT: Abscess of the abdomen. PRIMARY CARE PHYSICIAN: Mandi Goode. HISTORY OF PRESENT ILLNESS: Ms. Brigida Kwan is a 52-year-old female with past medical history of Crohn's disease and hyperlipidemia, who presents to the emergency department as a transfer from outside hospital for a right abdominal abscess concern. Patient was accompanied by her who reported that the patient has a history of Crohn's disease. Recently, she had a scan done of her abdomen that was concerning for possible cancer in her colon and in her intestine. Patient was taken for surgery and had a colectomy and an ileectomy done. Ileectomy was concerning for precancerous cells. Patient was given a colectomy bag and then she was sent to snf after that. After that, patient developed abdominal bloating and has jermaine broke out. It was noted that the patient's colon was leaking. Wound VAC was placed at that point and patient was discharged back. This morning, thought the patient was not doing well. She was acting a bit funny and was also noted to be like not coherent and her normal self. Patient was taken to the outside ER, where they found that the patient has the abscess of her stomach and she was transferred to the ER over here. The patient reports that her pain is well controlled at this point. Denies any other complaints at this point. Patient does have a wound VAC on her abdomen and the need to have a battery change for that. Patient was given Merrem, and surgery was consulted, who recommended admission, antibiotics, and IR drainage of retroperitoneal abscess. PAST MEDICAL HISTORY: Patient has Crohn's disease. PAST SURGICAL HISTORY: Colectomy with ostomy bag. MEDICATIONS: Patient's current medication includes; 1. Tramadol. 2. Potassium tablets. 3. Pantoprazole. SOCIAL HISTORY: Patient stopped smoking in June. Denies alcohol usage. FAMILY HISTORY: Father has history of heart problems. REVIEW OF SYSTEM: 10-point review of system negative other than mentioned in the HPI. PHYSICAL EXAMINATION: VITAL SIGNS: Blood pressure 112/71, pulse 96, respiratory rate 16, temperature 99.6, and O2 sat 96% on room air. GENERAL: Alert, oriented. HEAD: Atraumatic. Ear and nose, grossly normal. Throat, no exudate noted. NECK: No lymphadenopathy. HEART: Regular rate and rhythm. No murmur, rubs, or gallops. RESPIRATORY: Clear bilaterally. No wheezes. ABDOMEN: Soft. Bowel sounds hypoactive. Noted to have a colectomy bag. Patient also has a wound VAC as well. Otherwise, examination was unremarkable. EXTREMITIES: No edema noted. NEUROLOGIC: Alert. SKIN: No gross abnormal rashes noted. LABS: Significant labs include sodium 124, potassium 4.3, chloride 89, bicarb of 25, anion gap 14, BUN 11, creatinine 1.89, glucose is 127, magnesium is 1.9, phosphorus is 3.3, AST 43, ALT 28, alk phos is 211, albumin 2.8, and lipase is 161. CBC basically white blood cell count 17.6, hemoglobin 8.8, hematocrit 27, and platelets 994. Her EKG negative for any ST-segment elevation. CT head at outside facility negative for any acute abnormalities. CT abdomen and pelvis without contrast, fluid collection measuring 2.3 x 2.7 x 3.3 cm just deep to the right rectus muscle along the lateral margin of the opening of the ostomy. This is concerning for underlying abscess without contrast. Peripheral enhancement evaluation cannot be performed. No free-air noted and no free-fluid in the deep pelvis noted. ASSESSMENT AND PLAN: 1. Abdominal abscess as noted on the CT scan. Patient was given Merrem in the ED. General Surgery was consulted. Case was discussed in the ER, who recommended IR drainage, ordered and antibiotics and admission. Patient was started on vanc and Zosyn. Blood cultures ordered. We will continue to monitor and repeat labs in the morning. Wound care consult placed for the management of wound VAC. 2. Acute kidney injury. Patient's creatinine baseline seems to be like around 1 to 1.3. Patient's creatinine is 1.89. Urine lytes, IV fluids, and repeat labs in the morning. 3. Hyponatremia. Patient's sodium 120. Possibly from gastrointestinal loss versus dehydration. Review of chart indicated the patient at times did have [id number] hyponatremia. We will do a.m. cortisol, TSH, and repeat labs in the morning at this point. Urine lytes 4. Thrombocytosis. Platelets elevated. Patient asymptomatic, possibly due to dehydration. We will repeat labs in the morning at this point. 5. Sepsis. Patient presents with sepsis due to abdominal infection on admission , organism unknown at this point. Patient also had leukocytosis. Continue antibiotics as mentioned above. 6. DVT prophylaxis ordered. 7. Patient is full code. 8. Medical power of consumer attorney. Patient said that will be her . Job ID: [id number] MTDD
[2018-07-16] MEDS ORDERED: Bisacodyl 10 MG SUPP PR PRN (08:48)
[2018-07-16] MEDS ORDERED: Ondansetron PF 4 MG/2 ML Vial IVP PRN (08:48)
[2018-07-16] MEDS ORDERED: HYDROcodone/Acetaminophen 5/325 mg Tablet PO PRN (08:48)
[2018-07-16] MEDS ORDERED: Ondansetron ODT 4 MG TAB PO PRN (08:48)
[2018-07-16] MEDS ORDERED: Calcium Carbonate 500 MG ChewTAB PO PRN (08:48)
[2018-07-16] MEDS ORDERED: Acetaminophen 650 MG Suppository PR PRN (08:48)
[2018-07-16] MEDS ORDERED: ALL ABX IVPB PRN (08:51)
[2018-07-16] MEDS ORDERED: Sodium Chloride 0.9% 1,000 ML IV SCH ×2 (09:00)
[2018-07-16] MEDS ORDERED: Famotidine/PF 20 mg/2ml Vial SLOW IVP SCH (09:00)
[2018-07-16] MEDS ORDERED: Morphine 2 MG/ML SYRINGE SLOW IVP PRN (09:14)
[2018-07-16 10:18] LABS: ALT (SGPT) 24 U/L (8-55); AST (SGOT) 31 U/L (5-34); Albumin 2.7 g/dL (3.5-5.0); Alkaline Phosphatase 181 U/L (40-150); Anion Gap 16 mmol/L (10-20); BUN (Urea Nitrogen) 10 mg/dL (9.8-20.1); Bilirubin, Total 0.4 mg/dL (0.2-1.2); CRP (Inflammatory) 5.93 mg/dL (= or < 0.5); Calc. Creatinine Clearance 26 mL/min (70-130); Calcium 8.3 mg/dL (7.8-10.44); Carbon Dioxide 21 mmol/L (22-29); Chloride 104 mmol/L (98-107); Estimated GFR-MDRD 31; Globulin 3.9 g/dL (2.4-3.5); Glucose 89 mg/dL (70-105); Potassium 3.7 mmol/L (3.5-5.1); Protein, Total 6.6 g/dL (6.0-8.3); Sodium 137 mmol/L (136-145)
[2018-07-16 10:19] LABS: #Basophils 0.1 thou/uL (0.0-0.2); #Eosinphils 0.2 thou/uL (0.0-0.7); #Monocytes 1.4 thou/uL (0.11-0.59); #Neutrophils 11.2 thou/uL (1.40-6.50); %Basophils 0.7 % (0.0-1.0); %Eosinophils 1.3 % (0.0-10.0); %Lymphocytes 13.2 % (21.0-51.0); %Monocytes 9.5 % (0.0-10.0); %Neutrophils 75.4 % (42.0-75.0); Hemoglobin 8.5 g/dL (12.0-16.0); Mean Corpuscular HGB CONC 32.9 g/dL (32.0-36.0); Mean Corpuscular Hemoglobin 30.5 pg (27.0-31.0); Mean Corpuscular Volume 92.6 fL (78.0-98.0); Mean Platelet Volume 6.3 fL (7.4-10.4); Platelet Count 1006 thou/uL (130-400); RBC Distribution Width 14.1 % (11.5-14.5); Red Blood Cell (RBC) Count 2.78 mill/uL (4.20-5.40); White Blood Cell (WBC) Count 14.9 thou/uL (4.8-10.8)
[2018-07-16] MEDS ORDERED: Magnesium Sulfate 4 GM in Sodium Chloride 0.9% 250 ML 250 ML IVPB SCH (10:30)
[2018-07-16] MEDS: Famotidine 20 MG TAB PO SCH (11:08)
[2018-07-16] MEDS: Dextrose 5 %-0.45 % NaCl 1,000 ML IV SCH (11:09)
[2018-07-16] MEDS: Piperacillin/Tazobactam 2.25 GM in Sodium Chloride 0.9% 100 ML IVPB SCH ×3 (11:09→21:30)
--- NOTE | 2018-07-16 11:22 | CT ---
CT GUIDED ABSCESS ASPIRATION ABDOMEN: HISTORY: After explaining the procedure and answering all questions, limited CT imaging of the abdomen was per formed. Right lateral approach was planned. Sterile technique, buffered local anesthesia, CT guidance, and a right lateral approach were used to carefully advance a 19 gauge needle immediately lateral to the ostomy site and immediately medial to the loop of bowel under the abdominal wall. The needle was placed within the phlegmon and fluid rachid cent to the ostomy site. A total volume of 5 cc thick schneider-colored fluid was aspirated and sent to microbiology for evaluation. The needle was removed. Postprocedure imaging shows no evidence of complication and decrease in si ze of the fluid collection. The patient tolerated the procedure well and was returned in good condit ion. IMPRESSION: Technically successful CT-guided aspiration right lower quadrant abscess. Laboratory analysis is chip obrien. POS: GENNARO
--- NOTE | 2018-07-16 11:42 | PRG ---
DATE OF SERVICE: 07/16/2018 SUBJECTIVE: The patient was seen this morning sitting in bed. She had not yet gone to have IR drainage of abdominal abscess. She denies nausea or vomiting, and reports minimal abdominal pain. She has no new complaints this morning. PHYSICAL EXAMINATION: VITAL SIGNS: Temperature 99.7, pulse 94, respirations 20, oxygen saturation 98% on room air, blood pressure 135/65. GENERAL: Alert and awake, well-appearing elderly female, sitting up in bed. NEURO: GCS is 15. Alert and oriented x3. Gross motor and sensation intact in all 4 extremities. Pupils equal, round, reactive to light. PULMONARY: No signs of acute distress. Equal chest rise and fall. Lung kennedy clear bilaterally. HEART: Regular rate and rhythm. No murmurs, gallops, or rubs. GI: Abdomen is soft, mildly tender to palpation with no distention. Ileostomy to right lower quadrant with stool in bag. Midline abdominal wound with wound VAC in place. EXTREMITIES: Gross motor and sensation intact. 2+ pulses in all extremities. No swelling noted. LABORATORY FINDINGS: White blood cell count 14.9, hemoglobin 8.5, hematocrit 25.8, platelets 1006. Sodium 137, potassium 3.7, chloride 104, carbon dioxide 21, BUN 10, creatinine 1.7, phos 5.0, magnesium 1.0. DIAGNOSTIC FINDINGS: There are no new diagnostic findings to report. ASSESSMENT: 1. Four weeks status postop exploratory laparotomy with ileocecectomy and primary ileocolostomy. 2. Six weeks postop re-exploration laparotomy with resection of ileocolic anastomosis and ileostomy formation. 3. Right-sided abdominal peritoneal abscess. 4. Leukocytosis and thrombocytosis secondary to right sided abdominal peritoneal abscess. 5. Acute hyponatremia, resolved. 6. Acute kidney injury, likely secondary to dehydration, improving. RECOMMENDATIONS: Continue fluid resuscitation and we will start Zosyn today for antibiotics. The patient's diet can be advanced as tolerated after Radiology performs aspiration of abdominal abscess. There is no surgical indication at this time. General surgery will continue to follow the patient and make further recommendations as necessary. The patient was seen and examined by Dr. Cordero this morning during rounds. Job ID: [id number]
[2018-07-16] MEDS ORDERED: Piperacillin/Tazobactam 3.375 GM in Sodium Chloride 0.9% 100 ML IVPB SCH (12:00)
[2018-07-16 12:05] VITALS: BMI 21.1
[2018-07-16 13:38] LABS: BF Color Brown; Clarity Cloudy/Turbid (Clear); Tube # EDTA
[2018-07-16] MEDS: Fluconazole In NaCl,Iso-Osm 200 MG in Premix Bag 1 BAG IVPB SCH (15:49)
[2018-07-16 16:18] LABS: Anion Gap 21 mmol/L (10-20); BUN (Urea Nitrogen) 10 mg/dL (9.8-20.1); Calc. Creatinine Clearance 29 mL/min (70-130); Calcium 8.7 mg/dL (7.8-10.44); Carbon Dioxide 20 mmol/L (22-29); Chloride 98 mmol/L (98-107); Estimated GFR-MDRD 31; Glucose 110 mg/dL (70-105); Potassium 3.7 mmol/L (3.5-5.1); Sodium 135 mmol/L (136-145)
--- NOTE | 2018-07-16 16:26 | CON ---
DATE OF CONSULTATION: 07/16/2018 HISTORY OF PRESENT ILLNESS: A 52-year-old, whom I had seen in 2016 when she presented with a positive QuantiFERON. At that time, she had diagnosed Crohn disease and needed to be started on TNF inhibitor, the patient was treated with INH and then developed hepatotoxicity was switched to rifampin, completed treatment course without problems and I have not seen her since. She had a diagnostic colonoscopy and she had some areas in the ileum which were concerning for malignancy after polypectomy. Therefore, she had a surgical intervention by Dr. Hickey. The patient did have resection of ileum and colon with ileocecectomy, which demonstrated invasive well differentiated adenocarcinoma. The tumor invaded the submucosa, was located in the ileum. The margins were free. There were 28 lymph nodes negative for metastatic cancer. She had a primary anastomosis, but developed dehiscence of the anastomosis and required ileostomy placement on 06/28/2018. Postoperatively , she developed an abscess which was percutaneously drained and now I was called to see her because of fungemia. The patient has had a PICC line placed since . She otherwise is in no distress. No headaches, visual symptoms, sore throat, odynophagia, dysphagia. No cough or sputum production. No chest pain. No dyspnea. No back pain. Mild abdominal tenderness. No genitourinary symptoms. No joint symptoms. 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 Subsequent identification of dysplastic polyp which led to the ileocecectomy with resection of invasive adeno CA of ileum. The patient developed postop complications with abscess, following dehiscence of the primary anastomosis after ileocecectomy and now she was admitted for percutaneous aspirate. SOCIAL HISTORY: Former smoker. FAMILY HISTORY: Noncontributory. ALLERGIES: INCLUDE CIPROFLOXACIN WITH RASH. CURRENT MEDICATIONS: Zosyn. She has been started on Diflucan. PHYSICAL EXAMINATION: VITAL SIGNS: T-max 99.7, BP 130/60, pulse 92, respirations 20, O2 saturation 95 % to 98%. GENERAL: Appears in no distress. The patient has a PICC line left upper extremity. Ileostomy in the right abdomen. She is voiding spontaneously in the toilet. HEENT: No lymphadenopathy. Ocular movements conjugate. Oral cavity normal. NECK: Supple. LUNGS: Symmetric, clear breath sounds. HEART: S1, S2. Regular rate. No S3 or S4. ABDOMEN: Soft with mild tenderness to the right side. No distention. Bowel sounds are present. Normal perineal area. EXTREMITIES: No joint inflammatory activity. Pulses 1+ in dorsalis pedis. NEURO: Nonfocal including cognitive function. LABORATORY DATA: Sodium 137, creatinine 1.7 this is higher than her baseline, which is 0.79. White cell count was 17,000 now 14,000, hemoglobin 8.5, platelets 1006. She had a negative pressure dressing in the right side of the abdomen at the site of the previous dehiscence of the wound. Microbiology with yeast from one set of blood cultures from the PICC line. Venous culture, no growth to date. There appears to be a sample submitted for cultures from the aspirate that is still pending full identification and susceptibility profile. IMAGING STUDIES: Include abdomen and pelvis CT from 07/15, with a fluid collection measuring 2 x 2 x 3 cm deep to the right rectus muscle along the lateral margin of the opening for the ostomy. Contrast was not given for this study because of the renal function concerns. ASSESSMENT: 1. Longstanding Crohn disease with previous TNF inhibitor treatment. 2. 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 3. Dehiscence of the primary anastomosisy which led to reintervention with ileostomy with postop inflammatory changes and abscess formation, which led to readmission and percutaneous aspirate. The patient now has a negative pressure dressing and the ileostomy and now has yeast in blood cultures, probably related to colonization of PICC line. DISCUSSION: The most likely scenario is colonization of PICC line by Tova species. Would advise eventual removal of the PICC line and exchange to a different PICC line if needed for treatment of this complication. We will wait for the final results of the cultures from the abscess. It is possible that she might not need IV therapy, although most likely she will because of the reported allergy to quinolones. In this case, a 2nd PICC line will have to be is established in the opposite extremity. For the time being, continue Zosyn and Diflucan. She will need to continue monitoring of the abscess area with imaging studies. Duration of therapy will probably be at least 2 weeks, for the yeast fungemia around 21 days. Job ID: [id number] [facility]
[2018-07-16] MEDS: Acetaminophen 325 MG TAB PO PRN (16:31)
--- NOTE | 2018-07-16 22:24 | PDOC.PN ---
- Subjective Encounter Start Date: 07/16/18 Encounter Start Time: 13:00 Patient seen and examined for Abd abscess s/p CT drainage. Feels slightly better. No new complaints. No overnight events - Objective Resuscitation Status - Order Detail: 07/15/18 21:03 Resuscitation Status Routine Resuscitation Status: FULL: Full Resuscitation MAR Reviewed: Yes Vital Signs & Weight: Vital Signs (12 hours) Temp Pulse Resp BP Pulse Ox 07/16/18 17:55 140/63 07/16/18 17:03 99.1 F 07/16/18 16:00 100.1 F H 110 H 20 176/81 H 96 07/16/18 11:20 97.4 F L 92 20 131/62 95 Weight Admit Weight 97 lb Weight 108 lb I&O: 07/15/18 07/16/18 07/17/18 06:59 06:59 06:59 Intake Total 707 2000 Output Total 975 1000 Balance -268 1000 Result Diagrams: 07/17/18 04:54 07/17/18 04:54 Additional Labs: Accuchecks 07/16/18 10:51 POC Glucose 88 EKG Reviewed by me: Yes (Tele SR) Phys Exam - Physical Examination Constitutional: NAD Respiratory: no wheezing, no rhonchi Cardiovascular: RRR, no rub Gastrointestinal: soft, positive bowel sounds Musculoskeletal: no edema Neurological: moves all 4 limbs Dx/Plan - Plan DVT proph w/SCDs 1. Sepsis with acute organ dysfunction due to Intraabd abscess s/p CT drainage 2. Hyponatremia/Hypomagnesemia 3. RUT 4. Fungemia 5. Crohns disease 6. Anemia - prob due to chronic disease PLAN: Replace Mag Change IVF to D51/2 NS AM labs Cont Zosyn Add Fluconazole Cont other meds as below Laboratory Tests 07/15/18 07/16/18 07/16/18 16:13 09:39 09:39 Sodium 124 L Creatinine 1.89 H Magnesium 1.0 L C-Reactive Protein 5.93 H Cortisol 23.90 Review of Systems - Review of Systems Respiratory: negative: Cough, Dry, Shortness of Breath, Hemoptysis, SOB with Excertion, Pleuritic Pain, Sputum, Wheezing Cardiovascular: negative: chest pain, palpitations, orthopnea, paroxysmal nocturnal dyspnea, edema, light headedness, other - Medications/Allergies Allergies/Adverse Reactions: Allergies Allergy/AdvReac Type Severity Reaction Status Date / Time ciprofloxacin [From Cipro] Allergy Verified 07/15/18 23:27 codeine Allergy Verified 07/17/18 18:49 Medications: Current Medications Acetaminophen (Tylenol) 650 mg PO Q4H PRN PRN Reason: Headache/Fever/Mild Pain (1-3) Last Admin: 07/16/18 16:31 Dose: 650 mg Acetaminophen (Tylenol) 650 mg UT Q4H PRN PRN Reason: Headache/Fever/Mild Pain (1-3) Hydrocodone Bitart/Acetaminophen ([place] 5/325) 1 tab PO Q6H PRN PRN Reason: Moderate Pain (4-6) Stop: 07/18/18 08:49 Bisacodyl (Dulcolax) 10 mg UT DAILYPRN PRN PRN Reason: Constipation Calcium Carbonate (Tums) 1,000 mg PO Q4H PRN PRN Reason: Heartburn or Indigestion Famotidine (Pepcid) 20 mg SLOW IVP DAILY [facility] Last Admin: 07/16/18 11:08 Dose: 20 mg Famotidine (Pepcid) 20 mg PO DAILY [facility] Last Admin: 07/16/18 11:08 Dose: Not Given Piperacillin Sod/Tazobactam (Sod 2.25 gm/ Sodium Chloride) 100 mls @ 200 mls/ hr IVPB 0400,1000,1600,2200 [facility] Last Admin: 07/16/18 21:30 Dose: 100 mls Dextrose/Sodium Chloride (D5 1/2 Ns) 1,000 mls @ 75 mls/hr IV .[id number] [facility] Last Admin: 07/16/18 11:09 Dose: 1,000 mls Fluconazole/Sodium Chloride (200 mg/ Device) 100 mls @ 100 mls/hr IVPB 1500 [facility] Last Admin: 07/16/18 15:49 Dose: 100 mls Miscellaneous Medication (Pharmacy To Dose) 1 each IVPB DAILYPRN PRN PRN Reason: LABS Morphine Sulfate (Morphine) 2 mg SLOW IVP Q6H PRN PRN Reason: Severe Pain (7-10) Ondansetron HCl (Zofran Odt) 4 mg PO Q6H PRN PRN Reason: Nausea/Vomiting Ondansetron HCl (Zofran) 4 mg IVP Q6H PRN PRN Reason: Nausea/Vomiting Sodium Chloride (Flush - Normal Saline) 10 ml IVF Q12HR [facility] Last Admin: 07/16/18 21:23 Dose: Not Given Sodium Chloride (Flush - Normal Saline) 10 ml IVF PRN PRN PRN Reason: Saline Flush
[2018-07-17] MEDS: Piperacillin/Tazobactam 2.25 GM in Sodium Chloride 0.9% 100 ML IVPB SCH ×4 (04:56→21:47)
[2018-07-17] MEDS: Acetaminophen 325 MG TAB PO PRN (04:56)
[2018-07-17 05:02] LABS: #Basophils 0.1 thou/uL (0.0-0.2); #Eosinphils 0.7 thou/uL (0.0-0.7); #Lymphocytes 2.2 thou/uL (1.20-3.40); #Monocytes 1.3 thou/uL (0.11-0.59); #Neutrophils 12.4 thou/uL (1.40-6.50); %Basophils 0.6 % (0.0-1.0); %Eosinophils 4.4 % (0.0-10.0); %Monocytes 7.9 % (0.0-10.0); %Neutrophils 74.1 % (42.0-75.0); Hemoglobin 8.1 g/dL (12.0-16.0); Mean Corpuscular HGB CONC 32.6 g/dL (32.0-36.0); Mean Corpuscular Hemoglobin 30.2 pg (27.0-31.0); Mean Corpuscular Volume 92.8 fL (78.0-98.0); Platelet Count 807 thou/uL (130-400); RBC Distribution Width 14.1 % (11.5-14.5); White Blood Cell (WBC) Count 16.7 thou/uL (4.8-10.8)
[2018-07-17 05:26] LABS: ALT (SGPT) 20 U/L (8-55); AST (SGOT) 19 U/L (5-34); Albumin 2.6 g/dL (3.5-5.0); Alkaline Phosphatase 152 U/L (40-150); Anion Gap 14 mmol/L (10-20); BUN (Urea Nitrogen) 6 mg/dL (9.8-20.1); Bilirubin, Total 0.4 mg/dL (0.2-1.2); Calc. Creatinine Clearance 30 mL/min (70-130); Calcium 8.1 mg/dL (7.8-10.44); Carbon Dioxide 22 mmol/L (22-29); Chloride 98 mmol/L (98-107); Estimated GFR-MDRD 33; Globulin 3.7 g/dL (2.4-3.5); Glucose 94 mg/dL (70-105); Magnesium 2.2 mg/dL (1.6-2.6); Phosphorus 2.6 mg/dL (2.3-4.7); Potassium 3.2 mmol/L (3.5-5.1); Protein, Total 6.3 g/dL (6.0-8.3); Sodium 131 mmol/L (136-145)
[2018-07-17] MEDS: Escitalopram Oxalate 20 mg Tablet PO SCH (08:40)
[2018-07-17] MEDS: Famotidine 20 MG TAB PO SCH (08:40)
[2018-07-17] MEDS: Saccharomyces boulardii 250 MG CAP PO SCH (08:40)
[2018-07-17] MEDS: Potassium Chloride 10 MEQ TAB PO SCH ×2 (08:40→11:43)
[2018-07-17] MEDS: Dextrose 5 %-0.45 % NaCl 1,000 ML IV SCH (08:50)
[2018-07-17] MEDS ORDERED: Docusate 100 MG CAP PO SCH (09:00)
[2018-07-17] MEDS ORDERED: traMADol HCl 50 MG TAB PO PRN (10:43)
[2018-07-17] MEDS: traMADol HCl 50 MG TAB PO PRN ×2 (11:43→21:48)
[2018-07-17] MEDS: Diphenoxylate HCl/Atropine Tablet PO PRN ×2 (11:46→21:48)
[2018-07-17] MEDS: Acetaminophen 500 MG TAB PO SCH ×2 (11:47→16:31)
--- NOTE | 2018-07-17 14:03 | PRG ---
DATE OF SERVICE: 07/17/2018 SUBJECTIVE: Feeling about the same. A little bit of pain in the abdomen. No headaches. No sore throat. No vomiting. According to her, since the PICC line was inserted in June has never been used. OBJECTIVE: VITAL SIGNS: Showed a normal temperature for the past day. Other vital signs are not particularly remarkable. GENERAL: Awake, alert, oriented, pleasant. HEENT: Ocular movements conjugate. EXTREMITIES: Left upper extremity PICC line placed without major abnormalities noted. LUNGS: Symmetric air entry. HEART: S1 and S2, regular rate. ABDOMEN: Soft with mild tenderness. Ileostomy with liquid content in the bag. MUSCULOSKELETAL: Moves all extremities equally. Cognitive function appears to be intact. LABORATORY DATA: White cell count 16.7, hemoglobin 8.1, platelets 807, 74% neutrophils. Cultures have a presumptive Tova albicans. The abdomen abscess culture with possible growth in nutrient broth, subcultures in progress. ASSESSMENT AND DISCUSSION: Long-standing Crohn disease with previous TNF inhibitor treatment and then dysplastic polyp which led to ileocecectomy and dehiscence of the primary anastomosis which required repeat surgery with ileostomy placement, subsequent abscess formation, status post percutaneous drainage and now Tova albicans fungemia, probably due to PICC line colonization. Remove PICC line and wait for the culture results and then decide if she is going to need another one or preferably just oral antimicrobial therapy treatment. Job ID: [id number]
[2018-07-17] MEDS: Fluconazole In NaCl,Iso-Osm 200 MG in Premix Bag 1 BAG IVPB SCH (15:05)
--- NOTE | 2018-07-17 17:07 | PRG ---
DATE OF SERVICE: 07/17/2018 SUBJECTIVE: The patient was seen this morning, lying in bed and reported that she was feeling a little bit more fatigued and had increasing pain today after her procedure yesterday. at bedside also reported the patient not eating well and struggling with her appetite. Otherwise, had no significant acute events overnight. She is status post CT-guided aspiration of abdominal abscess yesterday, which produced 5 mL of schneider output, which was sent for culture and Gram stain at that time. PHYSICAL EXAMINATION: VITAL SIGNS: Temperature 98.3, pulse 81, respirations 18, oxygen saturation 94% on room air, and blood pressure 142/80. GENERAL: Alert and awake, elderly female, lying in bed. NEURO: GCS is 15. Alert and oriented x3. Gross motor and sensation intact in all 4 extremities. Pupils equal, round, reactive to light. PULMONARY: No signs of acute distress. Equal chest rise and fall. Lung kennedy clear bilaterally. HEART: Regular rate and rhythm. No murmurs, gallops, or rubs. GI: Abdomen is soft, appropriately tender to palpation and not distended. Ileostomy to right lower quadrant with stool in bag. Midline abdominal wound with VAC in place. VAC with clear output. EXTREMITIES: Gross motor and sensation intact. 2+ pulses in all extremities. No swelling noted. LABORATORY FINDINGS: White blood cell count 16.7, hemoglobin 8.1, hematocrit 25.0, and platelets 807. Sodium 131, potassium 3.2, chloride 19, carbon dioxide 22, BUN 6, creatinine 1.64, phosphorus 2.6, magnesium 2.2. DIAGNOSTIC FINDINGS: There are no diagnostic findings to report. ASSESSMENT: 1. Six weeks status post exploratory laparotomy with ileocecectomy and primary ileocolectomy. 2. Four weeks status post re-exploration laparotomy with resection of ileocecal anastomosis and ileostomy formation. 3. Right-sided abdominal/peritoneal abscess. 4. Leukocytosis and thrombocytosis secondary to right-sided abdominal/peritoneal abscess. 5. Electrolyte derangements. 6. Acute kidney injury, likely secondary to dehydration, improving. 7. Acute traumatic pain. RECOMMENDATIONS: We will continue fluid resuscitation and continue IV Zosyn today. The patient was encouraged to continue her regular diet and can advance as tolerated. We will continue normal saline at 75 an hour as the patient is not taking good p.o. We did add Ensure to her diet t.i.d. Gram stain for abdominal aspirate negative for bacteria and only white blood cells seen. We will continue to monitor for final culture and sensitivities of that. She did have positive fungal culture in her previously placed PICC line. We will let primary team determine when the PICC line should be replaced and further treatment for the fungemia. We will add tramadol today for better pain control. The patient was seen and examined by Dr. Cordero this morning during rounds. Job ID: [id number]
[2018-07-17] MEDS: D5 1/2 NS w/20 mEq KCL 1,000 ML IV SCH (17:23)
--- NOTE | 2018-07-17 19:46 | PDOC.PN ---
- Subjective Encounter Start Date: 07/17/18 Encounter Start Time: 11:00 Patient seen and examined for Sepsis. Some gen abd discomfort. Watery stools+. No new complaints. No overnight events - Objective Resuscitation Status - Order Detail: 07/15/18 21:03 Resuscitation Status Routine Resuscitation Status: FULL: Full Resuscitation MAR Reviewed: Yes Vital Signs & Weight: Vital Signs (12 hours) Temp Pulse Resp BP Pulse Ox 07/17/18 08:00 98.3 F 81 18 142/80 H 94 L Weight Admit Weight 97 lb Weight 108 lb I&O: 07/16/18 07/17/18 07/18/18 06:59 06:59 06:59 Intake Total 707 3670 1750 Output Total 975 2275 1275 Balance -268 1395 475 Result Diagrams: 07/17/18 04:54 07/17/18 04:54 Phys Exam - Physical Examination Constitutional: NAD Respiratory: no wheezing, no rhonchi Cardiovascular: RRR, no rub Gastrointestinal: soft, positive bowel sounds Mild gen tend+ Musculoskeletal: no edema Dx/Plan - Plan DVT proph w/SCDs 1. Sepsis with acute organ dysfunction due to Intraabd abscess s/p CT drainage 2. Hyponatremia/Hypomagnesemia/Hypokalemia 3. RUT 4. Fungemia 5. Crohns disease 6. Anemia - prob due to chronic disease 7. Other issues per previous notes PLAN: Replace Potassium Resume Lomotil Cont IVF DC PICC line AM labs Cont Zosyn/Fluconazole Cont other meds as below Review of Systems - Review of Systems Respiratory: negative: Cough, Dry, Shortness of Breath, Hemoptysis, SOB with Excertion, Pleuritic Pain, Sputum, Wheezing Cardiovascular: negative: chest pain, palpitations, orthopnea, paroxysmal nocturnal dyspnea, edema, light headedness, other - Medications/Allergies Allergies/Adverse Reactions: Allergies Allergy/AdvReac Type Severity Reaction Status Date / Time ciprofloxacin [From Cipro] Allergy Verified 07/15/18 23:27 codeine Allergy Verified 07/17/18 18:49 Medications: Current Medications Acetaminophen (Tylenol) 1,000 mg PO Q6H ON LICENSE OF [facility] Last Admin: 07/17/18 16:31 Dose: 1,000 mg Hydrocodone Bitart/Acetaminophen (Pinola 5/325) 1 tab PO Q6H PRN PRN Reason: Moderate Pain (4-6) Stop: 07/18/18 08:49 Bisacodyl (Dulcolax) 10 mg [place] DAILYPRN PRN PRN Reason: Constipation Calcium Carbonate (Tums) 1,000 mg PO Q4H PRN PRN Reason: Heartburn or Indigestion Diphenoxylate HCl/Atropine (Lomotil) 1 tab PO TID PRN PRN Reason: Diarrhea/Loose Stools Last Admin: 07/17/18 11:46 Dose: 1 tab Escitalopram Oxalate (Lexapro) 20 mg PO DAILY ON LICENSE OF [facility] Last Admin: 07/17/18 08:40 Dose: 20 mg Famotidine (Pepcid) 20 mg PO DAILY ON LICENSE OF [facility] Last Admin: 07/17/18 08:40 Dose: 20 mg Piperacillin Sod/Tazobactam (Sod 2.25 gm/ Sodium Chloride) 100 mls @ 200 mls/ hr IVPB 0400,1000,1600,2200 ON LICENSE OF [facility] Last Admin: 07/17/18 16:24 Dose: 100 mls Fluconazole/Sodium Chloride (200 mg/ Device) 100 mls @ 100 mls/hr IVPB 1500 ON LICENSE OF [facility] Last Admin: 07/17/18 15:05 Dose: 100 mls Potassium Chloride/Dextrose/Sod Cl (D5 1/2 Ns W/20 Meq Kcl) 1,000 mls @ 75 mls/ hr IV .[id number] ON LICENSE OF [facility] Last Admin: 07/17/18 17:23 Dose: 1,000 mls Miscellaneous Medication (Pharmacy To Dose) 1 each IVPB DAILYPRN PRN PRN Reason: LABS Ondansetron HCl (Zofran Odt) 4 mg PO Q6H PRN PRN Reason: Nausea/Vomiting Ondansetron HCl (Zofran) 4 mg IVP Q6H PRN PRN Reason: Nausea/Vomiting Saccharomyces Boulardii (Florastor) 250 mg PO DAILY ON LICENSE OF [facility] Last Admin: 07/17/18 08:40 Dose: 250 mg Sodium Chloride (Flush - Normal Saline) 10 ml IVF Q12HR ON LICENSE OF [facility] Last Admin: 07/17/18 08:41 Dose: Not Given Sodium Chloride (Flush - Normal Saline) 10 ml IVF PRN PRN PRN Reason: Saline Flush Tramadol HCl (Ultram) 50 mg PO Q6H PRN PRN Reason: Moderate Pain (4-6) Last Admin: 07/17/18 11:43 Dose: 50 mg
[2018-07-18] MEDS: Acetaminophen 500 MG TAB PO SCH ×4 (00:25→16:40)
[2018-07-18] MEDS: Piperacillin/Tazobactam 2.25 GM in Sodium Chloride 0.9% 100 ML IVPB SCH ×4 (03:18→21:07)
[2018-07-18 06:27] LABS: #Basophils 0.1 thou/uL (0.0-0.2); #Eosinphils 0.9 thou/uL (0.0-0.7); #Lymphocytes 3.2 thou/uL (1.20-3.40); #Monocytes 1.3 thou/uL (0.11-0.59); #Neutrophils 9.5 thou/uL (1.40-6.50); %Basophils 0.9 % (0.0-1.0); %Eosinophils 5.9 % (0.0-10.0); %Lymphocytes 21.4 % (21.0-51.0); %Monocytes 8.4 % (0.0-10.0); %Neutrophils 63.5 % (42.0-75.0); Hemoglobin 8.7 g/dL (12.0-16.0); Mean Corpuscular HGB CONC 32.2 g/dL (32.0-36.0); Mean Corpuscular Hemoglobin 30.4 pg (27.0-31.0); Mean Corpuscular Volume 94.3 fL (78.0-98.0); Mean Platelet Volume 6.3 fL (7.4-10.4); Platelet Count 854 thou/uL (130-400); RBC Distribution Width 13.9 % (11.5-14.5); Red Blood Cell (RBC) Count 2.86 mill/uL (4.20-5.40); White Blood Cell (WBC) Count 14.9 thou/uL (4.8-10.8)
[2018-07-18 06:48] LABS: ALT (SGPT) 22 U/L (8-55); AST (SGOT) 45 U/L (5-34); Albumin 2.5 g/dL (3.5-5.0); Alkaline Phosphatase 173 U/L (40-150); Anion Gap 12 mmol/L (10-20); BUN (Urea Nitrogen) 8 mg/dL (9.8-20.1); Bilirubin, Total 0.3 mg/dL (0.2-1.2); Calc. Creatinine Clearance 31 mL/min (70-130); Calcium 8.4 mg/dL (7.8-10.44); Carbon Dioxide 22 mmol/L (22-29); Chloride 101 mmol/L (98-107); Estimated GFR-MDRD 34; Globulin 3.8 g/dL (2.4-3.5); Glucose 97 mg/dL (70-105); Magnesium 1.5 mg/dL (1.6-2.6); Phosphorus 3.5 mg/dL (2.3-4.7); Potassium 3.4 mmol/L (3.5-5.1); Protein, Total 6.3 g/dL (6.0-8.3); Sodium 132 mmol/L (136-145)
[2018-07-18] MEDS: Saccharomyces boulardii 250 MG CAP PO SCH (08:13)
[2018-07-18] MEDS: D5 1/2 NS w/20 mEq KCL 1,000 ML IV SCH (08:13)
[2018-07-18] MEDS: Escitalopram Oxalate 20 mg Tablet PO SCH (08:14)
[2018-07-18] MEDS: Famotidine 20 MG TAB PO SCH (08:14)
[2018-07-18] MEDS ORDERED: Magnesium 2 GM/50 ML 2 GM in Premix Bag 1 BAG IVPB SCH (09:30)
--- NOTE | 2018-07-18 13:31 | PDOC.GSPN ---
Surgery Progress Note: Subj - Subjective Narrative: Feels better today. Dr. Martinez says total 21 days diflucan can be switched to oral after DC. Tolerating diet, ambulating Surgery Progress Note: Obj - Vital signs Vital signs: Vital Signs - Most Recent Temp Pulse Resp BP Pulse Ox 97.7 F 69 18 132/78 97 07/18/18 11:44 07/18/18 11:44 07/18/18 11:44 07/18/18 11:44 07/18/18 11:44 - Physical Exam General: no distress Neck: no bruits Respiratory: clear to auscultation Abdomen: soft, non tender Wound: wound vac, ostomy/colostomy (mostly liquid stool) Surgery Progress Note: Results - Labs Result Diagrams: 07/18/18 05:51 07/18/18 05:51 Lab results: Laboratory Results - last 24 hr 07/16/18 07/18/18 07/18/18 10:25 05:51 05:51 WBC 14.9 H RBC 2.86 L Hgb 8.7 L Hct 27.0 L MCV 94.3 MCH 30.4 MCHC 32.2 RDW 13.9 Plt Count 854 H MPV 6.3 L Neutrophils % 63.5 Lymphocytes % 21.4 Monocytes % 8.4 Eosinophils % 5.9 Basophils % 0.9 Neutrophils # 9.5 H Lymphocytes # 3.2 Monocytes # 1.3 H Eosinophils # 0.9 H Basophils # 0.1 Sodium 132 L Potassium 3.4 L Chloride 101 Carbon Dioxide 22 Anion Gap 12 BUN 8 L Creatinine 1.60 H Estimated GFR (MDRD) 34 Glucose 97 Calcium 8.4 Phosphorus 3.5 Magnesium 1.5 L Total Bilirubin 0.3 AST 45 H ALT 22 Alkaline Phosphatase 173 H Serum Total Protein 6.3 Albumin 2.5 L Globulin 3.8 H Albumin/Globulin Ratio 0.7 L Fluid Diff Path Review Surgery Progress Note: A/P - Problem (1) Peritonitis Current Visit: Yes Code(s): K65.9 - PERITONITIS, UNSPECIFIED Status: Acute - Plan Plan: will have case management to discuss senior living given deconditioning, failure to thrive -diet as tom -continue diflucan
[2018-07-18] MEDS: Diphenoxylate HCl/Atropine Tablet PO PRN (16:39)
[2018-07-18] MEDS: Fluconazole In NaCl,Iso-Osm 200 MG in Premix Bag 1 BAG IVPB SCH (16:40)
--- NOTE | 2018-07-18 21:48 | PDOC.PN ---
- Subjective Encounter Start Date: 07/18/18 Encounter Start Time: 10:15 Patient seen and examined for Sepsis. Abd pain improving. No new complaints. No overnight events - Objective Resuscitation Status - Order Detail: 07/15/18 21:03 Resuscitation Status Routine Resuscitation Status: FULL: Full Resuscitation MAR Reviewed: Yes Vital Signs & Weight: Vital Signs (12 hours) Temp Pulse Resp BP Pulse Ox 07/18/18 20:00 97.8 F 72 16 137/74 96 07/18/18 15:40 97.4 F L 82 18 132/81 98 07/18/18 11:44 97.7 F 69 18 132/78 97 Weight Admit Weight 97 lb Weight 108 lb I&O: 07/17/18 07/18/18 07/19/18 06:59 06:59 06:59 Intake Total 3670 3660 Output Total 2275 2350 Balance 1395 1310 Result Diagrams: 07/18/18 05:51 07/18/18 05:51 Phys Exam - Physical Examination Constitutional: NAD Respiratory: no wheezing, no rhonchi Cardiovascular: RRR, no rub Gastrointestinal: soft, non-tender, positive bowel sounds Musculoskeletal: no edema Neurological: moves all 4 limbs Dx/Plan - Plan DVT proph w/SCDs 1. Sepsis with acute organ dysfunction due to Intraabd abscess s/p CT drainage 2. Hyponatremia/Hypomagnesemia/Hypokalemia 3. RUT 4. Fungemia - PICC line dced 5. Crohns disease 6. Anemia - prob due to chronic disease 7. Other issues per previous notes PLAN: Cont Zosyn/Fluconazole Cont IVF AM labs Cont current meds as below Replace electrolytes Review of Systems - Review of Systems Respiratory: negative: Cough, Dry, Shortness of Breath, Hemoptysis, SOB with Excertion, Pleuritic Pain, Sputum, Wheezing Cardiovascular: negative: chest pain, palpitations, orthopnea, paroxysmal nocturnal dyspnea, edema, light headedness, other - Medications/Allergies Allergies/Adverse Reactions: Allergies Allergy/AdvReac Type Severity Reaction Status Date / Time ciprofloxacin [From Cipro] Allergy Verified 07/15/18 23:27 hydrocodone AdvReac Verified 07/17/18 21:52 Medications: Current Medications Acetaminophen (Tylenol) 1,000 mg PO Q6H [facility] Last Admin: 07/18/18 16:40 Dose: 1,000 mg Bisacodyl (Dulcolax) 10 mg [place] DAILYPRN PRN PRN Reason: Constipation Calcium Carbonate (Tums) 1,000 mg PO Q4H PRN PRN Reason: Heartburn or Indigestion Diphenoxylate HCl/Atropine (Lomotil) 1 tab PO TID PRN PRN Reason: Diarrhea/Loose Stools Last Admin: 07/18/18 16:39 Dose: 1 tab Escitalopram Oxalate (Lexapro) 20 mg PO DAILY [facility] Last Admin: 07/18/18 08:14 Dose: 20 mg Famotidine (Pepcid) 20 mg PO DAILY [facility] Last Admin: 07/18/18 08:14 Dose: 20 mg Piperacillin Sod/Tazobactam (Sod 2.25 gm/ Sodium Chloride) 100 mls @ 200 mls/ hr IVPB 0400,1000,1600,2200 [facility] Last Admin: 07/18/18 21:07 Dose: 100 mls Fluconazole/Sodium Chloride (200 mg/ Device) 100 mls @ 100 mls/hr IVPB 1500 [facility] Last Admin: 07/18/18 16:40 Dose: 100 mls Potassium Chloride/Dextrose/Sod Cl (D5 1/2 Ns W/20 Meq Kcl) 1,000 mls @ 75 mls/ hr IV .[id number] [facility] Last Admin: 07/18/18 08:13 Dose: 1,000 mls Miscellaneous Medication (Pharmacy To Dose) 1 each IVPB DAILYPRN PRN PRN Reason: LABS Ondansetron HCl (Zofran Odt) 4 mg PO Q6H PRN PRN Reason: Nausea/Vomiting Ondansetron HCl (Zofran) 4 mg IVP Q6H PRN PRN Reason: Nausea/Vomiting Saccharomyces Boulardii (Florastor) 250 mg PO DAILY [facility] Last Admin: 07/18/18 08:13 Dose: 250 mg Sodium Chloride (Flush - Normal Saline) 10 ml IVF Q12HR [facility] Last Admin: 07/18/18 21:06 Dose: Not Given Sodium Chloride (Flush - Normal Saline) 10 ml IVF PRN PRN PRN Reason: Saline Flush Tramadol HCl (Ultram) 50 mg PO Q6H PRN PRN Reason: Moderate Pain (4-6) Last Admin: 07/17/18 21:48 Dose: 50 mg
[2018-07-19] MEDS: Acetaminophen 500 MG TAB PO SCH ×5 (00:03→23:10)
[2018-07-19] MEDS: D5 1/2 NS w/20 mEq KCL 1,000 ML IV SCH ×2 (00:05→13:51)
[2018-07-19] MEDS: Piperacillin/Tazobactam 2.25 GM in Sodium Chloride 0.9% 100 ML IVPB SCH ×4 (05:19→20:12)
[2018-07-19] MEDS: Diphenoxylate HCl/Atropine Tablet PO PRN (05:20)
[2018-07-19 06:01] LABS: Mean Corpuscular Hemoglobin 30.3 pg (27.0-31.0); Mean Corpuscular Volume 94.5 fL (78.0-98.0); Platelet Count 944 thou/uL (130-400); RBC Distribution Width 13.9 % (11.5-14.5); Red Blood Cell (RBC) Count 2.97 mill/uL (4.20-5.40); White Blood Cell (WBC) Count 15.1 thou/uL (4.8-10.8)
[2018-07-19 06:04] LABS: #Basophils 0.1 thou/uL (0.0-0.2); #Eosinphils 0.6 thou/uL (0.0-0.7); #Lymphocytes 3.1 thou/uL (1.20-3.40); #Neutrophils 10.3 thou/uL (1.40-6.50); %Basophils 0.7 % (0.0-1.0); %Eosinophils 3.9 % (0.0-10.0); %Lymphocytes 20.7 % (21.0-51.0); %Monocytes 6.5 % (0.0-10.0); %Neutrophils 68.2 % (42.0-75.0); Mean Platelet Volume 6.6 fL (7.4-10.4)
[2018-07-19 06:20] LABS: ALT (SGPT) 22 U/L (8-55); AST (SGOT) 28 U/L (5-34); Albumin 2.6 g/dL (3.5-5.0); Alkaline Phosphatase 194 U/L (40-150); Anion Gap 13 mmol/L (10-20); BUN (Urea Nitrogen) 8 mg/dL (9.8-20.1); Bilirubin, Total 0.2 mg/dL (0.2-1.2); Calc. Creatinine Clearance 35 mL/min (70-130); Calcium 8.6 mg/dL (7.8-10.44); Carbon Dioxide 17 mmol/L (22-29); Chloride 104 mmol/L (98-107); Estimated GFR-MDRD 38; Globulin 3.9 g/dL (2.4-3.5); Glucose 85 mg/dL (70-105); Magnesium 1.8 mg/dL (1.6-2.6); Potassium 3.6 mmol/L (3.5-5.1); Protein, Total 6.5 g/dL (6.0-8.3); Sodium 130 mmol/L (136-145)
[2018-07-19] MEDS: Escitalopram Oxalate 20 mg Tablet PO SCH (09:01)
[2018-07-19] MEDS: Saccharomyces boulardii 250 MG CAP PO SCH (09:01)
[2018-07-19] MEDS: Famotidine 20 MG TAB PO SCH (09:01)
[2018-07-19] MEDS: Fluconazole In NaCl,Iso-Osm 200 MG in Premix Bag 1 BAG IVPB SCH (13:52)
--- NOTE | 2018-07-19 15:37 | PDOC.GSPN ---
Surgery Progress Note: Subj - Subjective Patient reports: no new complaints, tolerating a regular diet Surgery Progress Note: Obj - Vital signs Vital signs: Vital Signs - Most Recent Temp Pulse Resp BP Pulse Ox 97.6 F 82 18 126/80 96 07/19/18 12:00 07/19/18 12:00 07/19/18 12:00 07/19/18 12:00 07/19/18 12:00 - Physical Exam General: no distress Cardiovascular: regular rate and rhythm Respiratory: clear to auscultation Abdomen: soft, non tender Wound: wound vac Surgery Progress Note: Results - Labs Result Diagrams: 07/19/18 04:29 07/19/18 04:29 Lab results: Laboratory Results - last 24 hr 07/19/18 07/19/18 04:29 04:29 WBC 15.1 H RBC 2.97 L Hgb 9.0 L Hct 28.0 L MCV 94.5 MCH 30.3 MCHC 32.0 RDW 13.9 Plt Count 944 H* MPV 6.6 L Neutrophils % 68.2 Lymphocytes % 20.7 L Monocytes % 6.5 Eosinophils % 3.9 Basophils % 0.7 Neutrophils # 10.3 H Lymphocytes # 3.1 Monocytes # 1.0 H Eosinophils # 0.6 Basophils # 0.1 Sodium 130 L Potassium 3.6 Chloride 104 Carbon Dioxide 17 L Anion Gap 13 BUN 8 L Creatinine 1.43 H Estimated GFR (MDRD) 38 Glucose 85 Calcium 8.6 Phosphorus 4.0 Magnesium 1.8 Total Bilirubin 0.2 AST 28 ALT 22 Alkaline Phosphatase 194 H Serum Total Protein 6.5 Albumin 2.6 L Globulin 3.9 H Albumin/Globulin Ratio 0.7 L Surgery Progress Note: A/P - Problem (1) Peritonitis Current Visit: Yes Code(s): K65.9 - PERITONITIS, UNSPECIFIED Status: Acute Assessment and Plan: Ostomy output mostly liquid -made lomotil scheduled -child welfare caseworker to discuss USP today -Likely home or skilled in next few days
[2018-07-19] MEDS: Diphenoxylate HCl/Atropine Tablet PO SCH ×2 (16:00→20:11)
[2018-07-19] MEDS: traMADol HCl 50 MG TAB PO PRN (16:01)
--- NOTE | 2018-07-19 16:29 | PDOC.PN ---
- Subjective Encounter Start Date: 07/19/18 Encounter Start Time: 16:27 Mr. Kwan was seen today in follow-up of intra-abdominal abscess. She says she doesn't feel bad, but doesn't feel great either. She says the level of her abdominal pain is about a 4/10. - Objective Resuscitation Status - Order Detail: 07/15/18 21:03 Resuscitation Status Routine Resuscitation Status: FULL: Full Resuscitation MAR Reviewed: Yes Vital Signs & Weight: Vital Signs (12 hours) Temp Pulse Resp BP BP Pulse Ox 07/19/18 16:00 98.0 F 82 16 132/83 98 07/19/18 12:00 97.6 F 82 18 126/80 96 07/19/18 07:49 97.5 F L 78 16 137/83 97 07/19/18 07:30 97.5 F L 78 16 137/83 97 Weight Admit Weight 97 lb Weight 108 lb I&O: 07/18/18 07/19/18 07/20/18 06:59 06:59 06:59 Intake Total 3660 1670 Output Total 2350 650 Balance 1310 1020 Result Diagrams: 07/19/18 04:29 07/19/18 04:29 Phys Exam - Physical Examination HEENT: PERRLA Respiratory: no wheezing, no rales, no rhonchi, clear to auscultation bilateral Cardiovascular: RRR, no significant murmur, no rub Gastrointestinal: soft, non-tender, positive bowel sounds Musculoskeletal: no edema, pulses present Dx/Plan (1) Intra-abdominal abscess Code(s): K65.1 - PERITONEAL ABSCESS Status: Acute (2) Crohn's disease Code(s): K50.90 - CROHN'S DISEASE, UNSPECIFIED, WITHOUT COMPLICATIONS Status: Chronic Qualifiers: Gastrointestinal tract location: small and large intestine Comment: s/p ileocecectomy for stricture and adenocarcinoma- completely removed with clear margins (3) GERD (gastroesophageal reflux disease) Code(s): K21.9 - GASTRO-ESOPHAGEAL REFLUX DISEASE WITHOUT ESOPHAGITIS Status: Chronic Qualifiers: Esophagitis presence: esophagitis presence not specified Qualified Code(s) : K21.9 - Gastro-esophageal reflux disease without esophagitis (4) Thrombocytosis Status: Acute - Plan * Intra-abdominal abscess- she is s/p CT-guided drainage.- Cultures are negative so far- continue Zosyn * Crohn's disease- stable. * Thrombocytosis- likely a reaction to the acute illness- will monitor- will place her on a low dose aspirin * Fungemia- due to Infected PICC line- she is currently on Diflucan and will need this for 21 days
[2018-07-20] MEDS: Piperacillin/Tazobactam 2.25 GM in Sodium Chloride 0.9% 100 ML IVPB SCH ×2 (03:53→09:55)
[2018-07-20] MEDS: D5 1/2 NS w/20 mEq KCL 1,000 ML IV SCH ×2 (03:53→15:39)
[2018-07-20] MEDS: Acetaminophen 500 MG TAB PO SCH ×3 (03:59→16:58)
[2018-07-20 07:27] LABS: #Basophils 0.2 thou/uL (0.0-0.2); #Eosinphils 0.6 thou/uL (0.0-0.7); #Lymphocytes 4.7 thou/uL (1.20-3.40); #Monocytes 1.2 thou/uL (0.11-0.59); #Neutrophils 9.2 thou/uL (1.40-6.50); %Basophils 0.9 % (0.0-1.0); %Eosinophils 3.7 % (0.0-10.0); %Lymphocytes 29.5 % (21.0-51.0); %Monocytes 7.6 % (0.0-10.0); %Neutrophils 58.2 % (42.0-75.0); Hemoglobin 9.6 g/dL (12.0-16.0); Mean Corpuscular HGB CONC 32.2 g/dL (32.0-36.0); Mean Corpuscular Hemoglobin 30.3 pg (27.0-31.0); Mean Corpuscular Volume 94.2 fL (78.0-98.0); Mean Platelet Volume 6.5 fL (7.4-10.4); Platelet Count 1020 thou/uL (130-400); RBC Distribution Width 13.9 % (11.5-14.5); Red Blood Cell (RBC) Count 3.15 mill/uL (4.20-5.40); White Blood Cell (WBC) Count 15.9 thou/uL (4.8-10.8)
[2018-07-20 07:34] LABS: ALT (SGPT) 25 U/L (8-55); AST (SGOT) 36 U/L (5-34); Albumin 2.8 g/dL (3.5-5.0); Alkaline Phosphatase 249 U/L (40-150); Anion Gap 16 mmol/L (10-20); BUN (Urea Nitrogen) 9 mg/dL (9.8-20.1); Bilirubin, Total 0.4 mg/dL (0.2-1.2); Calc. Creatinine Clearance 35 mL/min (70-130); Calcium 9.1 mg/dL (7.8-10.44); Carbon Dioxide 17 mmol/L (22-29); Chloride 105 mmol/L (98-107); Estimated GFR-MDRD 38; Globulin 4.3 g/dL (2.4-3.5); Glucose 98 mg/dL (70-105); Magnesium 1.2 mg/dL (1.6-2.6); Phosphorus 3.8 mg/dL (2.3-4.7); Potassium 3.9 mmol/L (3.5-5.1); Protein, Total 7.1 g/dL (6.0-8.3); Sodium 134 mmol/L (136-145)
[2018-07-20] MEDS: Escitalopram Oxalate 20 mg Tablet PO SCH (07:58)
[2018-07-20] MEDS: Diphenoxylate HCl/Atropine Tablet PO SCH (07:59)
[2018-07-20] MEDS: Saccharomyces boulardii 250 MG CAP PO SCH (08:00)
[2018-07-20] MEDS: Famotidine 20 MG TAB PO SCH (08:01)
[2018-07-20] MEDS: Aspirin 81 mg Enteric Coated Tablet PO SCH (08:02)
--- NOTE | 2018-07-20 13:38 | PDOC.PN ---
- Subjective Encounter Start Date: 07/20/18 Encounter Start Time: 12:00 Ms. Kwan was seen today in follow-up of Intra-abdominal abscess. She does not have any significant abominal pain. She says her appetite has been " so-so". She has not had any nausea or vomiting. - Objective Resuscitation Status - Order Detail: 07/15/18 21:03 Resuscitation Status Routine Resuscitation Status: FULL: Full Resuscitation MAR Reviewed: Yes Vital Signs & Weight: Vital Signs (12 hours) Temp Pulse Resp BP BP Pulse Ox 07/20/18 11:40 97.9 F 84 20 133/83 96 07/20/18 08:00 94 L 07/20/18 07:22 97.9 F 92 20 114/80 94 L Weight Admit Weight 97 lb Weight 108 lb I&O: 07/19/18 07/20/18 07/21/18 06:59 06:59 06:59 Intake Total 1670 1100 360 Output Total 650 850 Balance 1020 250 360 Result Diagrams: 07/20/18 06:23 07/20/18 06:23 Phys Exam - Physical Examination HEENT: PERRLA Respiratory: no wheezing, no rales, no rhonchi, clear to auscultation bilateral Cardiovascular: RRR, no significant murmur, no rub Gastrointestinal: soft, non-tender, no distention, positive bowel sounds Musculoskeletal: no edema, pulses present Dx/Plan (1) Intra-abdominal abscess Code(s): K65.1 - PERITONEAL ABSCESS Status: Acute (2) Crohn's disease Code(s): K50.90 - CROHN'S DISEASE, UNSPECIFIED, WITHOUT COMPLICATIONS Status: Chronic Qualifiers: Gastrointestinal tract location: small and large intestine Comment: s/p ileocecectomy for stricture and adenocarcinoma- completely removed with clear margins (3) GERD (gastroesophageal reflux disease) Code(s): K21.9 - GASTRO-ESOPHAGEAL REFLUX DISEASE WITHOUT ESOPHAGITIS Status: Chronic Qualifiers: Esophagitis presence: esophagitis presence not specified Qualified Code(s) : K21.9 - Gastro-esophageal reflux disease without esophagitis (4) Thrombocytosis Status: Acute - Plan * Intra-abdominal abscess- cultures are negative * Continue zosyn, and consider transition to an oral antibiotic soon * Fungemia- from PICC line- continue Diflucan * Thrombocytosis- I suspect this is reactive. In review of her medical records, her platelet count was normal about 2 months ago. Will continue a low dose aspirin, and I have discussed this with the patient. I anticipate that her platelet level will return to normal once this acute illness has resolved. I also explained that she should have a CBC check after discharge in a few weeks to insure resolution. In the meantime, continue to take the low dose aspirin . * Disposition as per General Surgery
--- NOTE | 2018-07-20 13:59 | PDOC.GSPN ---
Surgery Progress Note: Subj - Subjective Patient reports: no new complaints Surgery Progress Note: Obj - Vital signs Vital signs: Vital Signs - Most Recent Temp Pulse Resp BP Pulse Ox 97.9 F 84 20 133/83 96 07/20/18 11:40 07/20/18 11:40 07/20/18 11:40 07/20/18 11:40 07/20/18 11:40 - Physical Exam General: no distress Abdomen: soft, non tender, nondistended Wound: wound vac, ostomy/colostomy (still liquid) Surgery Progress Note: Results - Labs Result Diagrams: 07/20/18 06:23 07/20/18 06:23 Lab results: Laboratory Results - last 24 hr 07/16/18 07/20/18 07/20/18 10:25 06:23 06:23 WBC 15.9 H RBC 3.15 L Hgb 9.6 L Hct 29.7 L MCV 94.2 MCH 30.3 MCHC 32.2 RDW 13.9 Plt Count 1020 H* MPV 6.5 L Neutrophils % 58.2 Lymphocytes % 29.5 Monocytes % 7.6 Eosinophils % 3.7 Basophils % 0.9 Neutrophils # 9.2 H Lymphocytes # 4.7 H Monocytes # 1.2 H Eosinophils # 0.6 Basophils # 0.2 Sodium 134 L Potassium 3.9 Chloride 105 Carbon Dioxide 17 L Anion Gap 16 BUN 9 L Creatinine 1.43 H Estimated GFR (MDRD) 38 Glucose 98 Calcium 9.1 Phosphorus 3.8 Magnesium 1.2 L Total Bilirubin 0.4 AST 36 H ALT 25 Alkaline Phosphatase 249 H Serum Total Protein 7.1 Albumin 2.8 L Globulin 4.3 H Albumin/Globulin Ratio 0.7 L Fluid Source Fluid Tube Number EDTA Fluid Color Brown Fluid Clarity Cloudy/Turbid H Fluid Diff Comment Fluid Diff Path Review Fluid Comment Note: Surgery Progress Note: A/P - Problem (1) Peritonitis Current Visit: Yes Code(s): K65.9 - PERITONITIS, UNSPECIFIED Status: Acute Assessment and Plan: Agree with Aspirin with Plts greater than 1000. -home tomorrow on diflucan 200 mg po daily -will try imodium instead of lomotil for loose ostomy output
[2018-07-20] MEDS: Fluconazole In NaCl,Iso-Osm 200 MG in Premix Bag 1 BAG IVPB SCH (15:38)
[2018-07-20] MEDS: Loperamide HCl 2 MG CAP PO SCH ×2 (15:38→19:48)
[2018-07-21] MEDS: Acetaminophen 500 MG TAB PO SCH ×3 (01:34→10:58)
[2018-07-21] MEDS: D5 1/2 NS w/20 mEq KCL 1,000 ML IV SCH (04:56)
[2018-07-21 06:50] LABS: #Basophils 0.2 thou/uL (0.0-0.2); #Eosinphils 0.5 thou/uL (0.0-0.7); #Lymphocytes 5.4 thou/uL (1.20-3.40); #Monocytes 1.2 thou/uL (0.11-0.59); #Neutrophils 9.2 thou/uL (1.40-6.50); %Basophils 1.1 % (0.0-1.0); %Eosinophils 2.8 % (0.0-10.0); %Lymphocytes 32.6 % (21.0-51.0); %Monocytes 7.5 % (0.0-10.0); %Neutrophils 55.9 % (42.0-75.0); Hemoglobin 9.6 g/dL (12.0-16.0); Mean Corpuscular HGB CONC 31.4 g/dL (32.0-36.0); Mean Corpuscular Hemoglobin 29.6 pg (27.0-31.0); Mean Corpuscular Volume 94.2 fL (78.0-98.0); Mean Platelet Volume 6.4 fL (7.4-10.4); Platelet Count 1053 thou/uL (130-400); RBC Distribution Width 14.1 % (11.5-14.5); Red Blood Cell (RBC) Count 3.24 mill/uL (4.20-5.40); White Blood Cell (WBC) Count 16.5 thou/uL (4.8-10.8)
[2018-07-21 06:56] VITALS: TEMP 97.9
[2018-07-21] MEDS: Escitalopram Oxalate 20 mg Tablet PO SCH (08:01)
[2018-07-21] MEDS: Saccharomyces boulardii 250 MG CAP PO SCH (08:01)
[2018-07-21] MEDS: Loperamide HCl 2 MG CAP PO SCH (08:01)
[2018-07-21] MEDS: Famotidine 20 MG TAB PO SCH (08:01)
[2018-07-21] MEDS: Aspirin 81 mg Enteric Coated Tablet PO SCH (08:01)
[2018-07-21] MEDS: traMADol HCl 50 MG TAB PO PRN (10:55)
--- NOTE | 2018-07-21 10:56 | PDOC.GSPN ---
Surgery Progress Note: Subj - Subjective Patient reports: no new complaints Surgery Progress Note: Obj - Vital signs Vital signs: Vital Signs - Most Recent Temp Pulse Resp BP Pulse Ox 97.9 F 90 17 131/89 96 07/21/18 06:55 07/21/18 06:55 07/21/18 06:55 07/21/18 06:55 07/21/18 08:00 - Physical Exam General: no distress Abdomen: soft, non tender, nondistended Wound: wound vac, ostomy/colostomy Surgery Progress Note: Results - Labs Result Diagrams: 07/21/18 05:56 07/20/18 06:23 Lab results: Laboratory Results - last 24 hr 07/21/18 05:56 WBC 16.5 H RBC 3.24 L Hgb 9.6 L Hct 30.5 L MCV 94.2 MCH 29.6 MCHC 31.4 L RDW 14.1 Plt Count 1053 H* MPV 6.4 L Neutrophils % 55.9 Lymphocytes % 32.6 Monocytes % 7.5 Eosinophils % 2.8 Basophils % 1.1 H Neutrophils # 9.2 H Lymphocytes # 5.4 H Monocytes # 1.2 H Eosinophils # 0.5 Basophils # 0.2 Surgery Progress Note: A/P - Problem (1) Peritonitis Current Visit: Yes Code(s): K65.9 - PERITONITIS, UNSPECIFIED Status: Acute Assessment and Plan: Home on diflucan today -f/u me 2 weeks -lomotil refill for ostomy
[2018-07-21 12:33] VITALS: BP 146/68
--- NOTE | 2018-07-25 10:22 | PQF ---
[employer] Account Management Assistant Crystal Reports Mojennifer SKYLER Fink,CHINTAN [phone] [id number] CLINICAL DOCUMENTATION CLARIFICATION FORM: POST DISCHARGE Addendum to original discharge summary date: ____ Late entry note date: __ Please exercise your independent, professional judgment in responding to the clarification form. Clinical indicators are provided on the bottom of this form for your review Please check appropriate box(s): [ ] RETROPERITONEAL ABSCESS is a complication of current/ recent surgery [ ] RETROPERITONEAL ABSCESS is not a complication of current/recent surgery [ ] Other diagnosis [ X] Unable to determine In addition, please specify: Present on Admission (POA): [ X ] Yes [ ] No [ ] Unable to determine CLINICAL INDICATORS - SIGNS / SYMPTOMS / LABS RETROPERITONEAL ABSCESS- H&P, PN 07/16, 07/18, 07/19, 07/20 PERITONITIS- PN 07/18, 07/19, 07/20, 07/21 SEVERE SEPSIS- H&P, PN 07/16, 07/17, 07/18 RISK FACTORS 6 WEEK STATUS POST EXPLORATORY LAPAROTOMY WITH ILEOCECECTOMY AND PRIMARY ILEOCOLECTOMY- PN 07/16, 07/17, CONSULT 07/15 4 WEEK STATUS POST RE-EXPLORATION LAPAROTOMY WITH RESECTION OF ILEOCECAL ANASTAMOSISAND ILEOSTOMY FORMATION- PN 07/16, 07/17, CONSULT 07/15 TREATMENT: PATIENT STARTED ON VANCOMYCIN AND ZOSYN- H&P CT GUIDED ABSCESS ASPIRATION- 07/16 DR. CAZARES (This form is maintained as a part of the permanent medical record) 2014 [employer]. All Rights Reserved [email or web address] [phone] [facility]
== END 2018-07-21 13:10 | disposition home or self-care (01) | DRG 871 ==
LOC: ERS 15:56 → 2NO 21:41 → T4-A 07-16 18:47
PROVIDERS: ADMIT Family Medicine; ATTEND Family Medicine
PROC: 0J983ZX Drainage of Abdomen Subcutaneous Tissue and Fascia, Percutaneous Approach, Diagnostic (ICD-10-PCS; principal; 2018-07-16)
DX: A41.9 Sepsis, unspecified organism (principal); K68.19 Other retroperitoneal abscess; K50.90 Crohn's disease, unspecified, without complications; N17.9 Acute kidney failure, unspecified; E87.1 Hypo-osmolality and hyponatremia; B49 Unspecified mycosis; E78.5 Hyperlipidemia, unspecified; F17.210 Nicotine dependence, cigarettes, uncomplicated; D47.3 Essential (hemorrhagic) thrombocythemia; E86.0 Dehydration; E83.42 Hypomagnesemia; D63.8 Anemia in other chronic diseases classified elsewhere; R65.20 Severe sepsis without septic shock; K21.9 Gastro-esophageal reflux disease without esophagitis; F32.9 Major depressive disorder, single episode, unspecified; Z90.49 Acquired absence of other specified parts of digestive tract; Z93.3 Colostomy status; Z82.49 Family history of ischemic heart disease and other diseases of the circulatory system; Z80.8 Family history of malignant neoplasm of other organs or systems
CPT/HCPCS: 36415; 36416; 74176; 77002; 77012; 80053; 82533; 83605; 83735; 84100; 84443; 85025; 85060; 86140; 87040; 87070; 87076; 87205; 89051; 93005; 96361; 96365; J1450; J2185; J2405; J2543; J3475; J7050; S0028

== ENCOUNTER 2018-07-26 11:29 | Inpatient (IN) | payer BC ==
[~2018-07-26 11:29] MED LIST: ISOVUE-370 76%-LOCM 1 ML ONE; Iopamidol 370 76% 50 ML VIAL FS ONE
[2018-07-26] MEDS ORDERED: Ondansetron PF 4 MG/2 ML Vial ONE ×3 (12:01→18:36)
[2018-07-26 12:12] LABS: #Basophils 0.1 thou/uL (0.0-0.2); #Eosinphils 0.1 thou/uL (0.0-0.7); #Lymphocytes 4.6 thou/uL (1.20-3.40); #Monocytes 1.1 thou/uL (0.11-0.59); #Neutrophils 13.5 thou/uL (1.40-6.50); %Basophils 0.7 % (0.0-1.0); %Eosinophils 0.5 % (0.0-10.0); %Lymphocytes 23.5 % (21.0-51.0); %Monocytes 5.4 % (0.0-10.0); %Neutrophils 69.8 % (42.0-75.0); Hemoglobin 12.1 g/dL (12.0-16.0); Mean Corpuscular HGB CONC 32.3 g/dL (32.0-36.0); Mean Corpuscular Hemoglobin 29.7 pg (27.0-31.0); Mean Corpuscular Volume 92.1 fL (78.0-98.0); Mean Platelet Volume 6.1 fL (7.4-10.4); Platelet Count 1092 thou/uL (130-400); Red Blood Cell (RBC) Count 4.07 mill/uL (4.20-5.40); White Blood Cell (WBC) Count 19.4 thou/uL (4.8-10.8)
[2018-07-26 12:27] LABS: ALT (SGPT) 32 U/L (8-55); AST (SGOT) 60 U/L (5-34); Albumin 3.9 g/dL (3.5-5.0); Alkaline Phosphatase 315 U/L (40-150); Anion Gap 21 mmol/L (10-20); BUN (Urea Nitrogen) 11 mg/dL (9.8-20.1); Bilirubin, Total 0.4 mg/dL (0.2-1.2); Calc. Creatinine Clearance 0 mL/min (70-130); Calcium 9.7 mg/dL (7.8-10.44); Carbon Dioxide 18 mmol/L (22-29); Chloride 83 mmol/L (98-107); Estimated GFR-MDRD 30; Globulin 5.2 g/dL (2.4-3.5); Glucose 114 mg/dL (70-105); Potassium 5.5 mmol/L (3.5-5.1); Protein, Total 9.1 g/dL (6.0-8.3)
[2018-07-26 12:37] LABS: Sodium 116 mmol/L (136-145)
[2018-07-26] MEDS ORDERED: traZODone HCl 50 MG TAB PO PRN (17:50)
[2018-07-26] MEDS ORDERED: Metoclopramide HCl 10 MG/2 ML VIAL ONE (18:05)
[2018-07-26] MEDS ORDERED: Sodium Chloride 0.9% 100 ML ONE (18:05)
[2018-07-26 20:17] VITALS: BMI 18.9
--- NOTE | 2018-07-26 20:25 | CT ---
CT OF THE ABDOMEN AND PELVIS WITH IV CONTRAST: 07/26/18 INDICATION: Nausea, vomiting, and abdominal pain with dehydration. COMPARISON: Prior CT of the abdomen and pelvis without contrast dated 07/15/[address] of the abdomen and pelv is dated 04/13/18. FINDINGS: The fluid collection seen just deep to the right lower quadrant ileostomy is smaller measuring 2 cm w here previously it measured 2.8 cm. This was aspirated on 07/16/18. The long segment colonic pouch is unchanged. No additional drainable fluid collection is evident. Lung bases are clear. There is some areas of focal fatty infiltration seen near the falciform ligamen t. The gallbladder is surgically absent. The pancreas, adrenal gland and spleen appear within normal limits. No hydronephrosis is evident. The visualized kidneys appear within normal limits. There are mild vascular calcifications involving the abdominal and pelvic vasculature. Uterus, adnexa, bladder, rectum and perirectal soft tissues are unremarkable. There is scattered dive rticula involving the colon. There is mild levoscoliosis of the lumbar spine. No acute osseous abnorm ality is evident. IMPRESSION: 1. Decreasing size of the small fluid collection adjacent and deep to the right lower quadrant i leostomy site. This was aspirated by CT guidance on 07/16/18. 2. Remainder of the exam does not appear appreciably changed from the recent comparison CT evalu ation. POS: [facility]
[2018-07-26] MEDS: Metoclopramide HCl 10 MG/2 ML VIAL IVP SCH ×2 (20:46→23:08)
[2018-07-26] MEDS: Sodium Chloride 0.9% 1,000 ML IV SCH ×2 (20:47→23:14)
[2018-07-26] MEDS: Ondansetron PF 4 MG/2 ML Vial IVP SCH ×2 (20:47→23:07)
[2018-07-26] MEDS: Famotidine/PF 20 mg/2ml Vial SLOW IVP SCH (20:49)
[2018-07-26] MEDS: Fluconazole 100 MG TAB PO SCH (20:59)
--- NOTE | 2018-07-26 23:19 | HP ---
PRIMARY CARE PROVIDER: Dr. Mandi Musa. CHIEF COMPLAINT: Nausea and vomiting, general fatigue. HISTORY OF PRESENT ILLNESS: This is a 52-year-old female who presents to [facility] Emergency Department with complaints of persistent nausea and vomiting with poor oral intake and general fatigue over the last 4 to 5 days. The patient's history is significant for recent admission to [facility] from 07/15/2018 through 07/21/2018 due to intra-abdominal abscess, status post CT-guided aspiration. The patient was treated for the abscess with the CT-guided aspiration as well as placed on Diflucan after blood cultures from a PICC line showed presumptive Tova albicans species. The patient states she has been taking her home regimen of Zofran without specific relief. The patient had emesis after liquids as well as solid foods without specific trigger. The patient denied any specific increased abdominal pain, documented fever, trauma, or injury. The patient does have an ostomy, which she states has had adequate output. The patient has been urinating without difficulty and denied any dysuria. The patient denied any elda blood in the ostomy stool. The patient does state she feels dehydrated and has been sipping water in the emergency department. In the emergency room, the patient underwent general evaluation, receiving IV fluids as well as Zofran. The patient was noted by nursing in the emergency room with large amount of stool in the ostomy bag. PAST MEDICAL HISTORY: 1. Colon adenocarcinoma, status post resection. 2. History of Crohn disease. 3. Abdominal abscess, status post CT-guided aspiration. 4. Abdominal wound dehiscence after ileocecectomy. PAST SURGICAL HISTORY: 1. Status post cholecystectomy. 2. Status post ileocecectomy. 3. Status post colostomy. 4. Status post dilation and curettage. 5. Status post CT-guided abdominal abscess aspiration. CURRENT MEDICATIONS: 1. Lomotil 1 tablet p.o. t.i.d. p.r.n. 2. Lexapro 20 mg p.o. daily. 3. Premier 7.5/325 mg one tablet p.o. q.6 hours p.r.n. 4. Zofran 4 mg p.o. q.8 hours p.r.n. 5. Protonix 40 mg p.o. daily. 6. Potassium citrate 10 mEq p.o. b.i.d. 7. Tramadol 50 mg one to two tablets p.o. q.6 hours p.r.n. 8. Trazodone 50 mg p.o. at bedtime p.r.n. ALLERGIES: CIPROFLOXACIN. FAMILY HISTORY: Positive for cancer in her parents. SOCIAL HISTORY: The patient smokes up to a pack of cigarettes daily. No alcohol or illicit drug use. Accompanied by her in the hospital. Resides in the [facility]. REVIEW OF SYSTEMS: CONSTITUTIONAL: Negative for weight loss or gain, ability to conduct usual activities. SKIN: Negative for rash, itching. EYES: Negative for double vision, pain. ENT/MOUTH: Negative for nose bleeding, neck stiffness, pain, tenderness. CARDIOVASCULAR: Negative for palpitations, dyspnea on exertion, orthopnea. RESPIRATORY: Negative for shortness of breath, wheezing, cough, hemoptysis, fever or night sweats. GASTROINTESTINAL: Negative for poor appetite, abdominal pain, heartburn, nausea, vomiting, constipation, or diarrhea. GENITOURINARY: Negative for urgency, frequency, dysuria, nocturia. MUSCULOSKELETAL: Negative for pain, swelling. NEUROLOGIC/PSYCHIATRIC: Negative for anxiety, depression. ALLERGY/IMMUNOLOGIC: Negative for skin rash, bleeding tendency. Otherwise negative except as stated per HPI. PHYSICAL EXAMINATION: VITAL SIGNS: On admission; blood pressure 140/90, pulse 105, respiratory rate 18, temperature 97.7 degrees Fahrenheit, and O2 saturation 98% on room air. GENERAL APPEARANCE: This is a 52-year-old female, alert and oriented x3, pleasant, conversant, in no acute distress. HEENT: Pupils are equal, round, and reactive to light and accommodation. Extraocular muscles are intact. No scleral icterus. No conjunctival injection. Nares patent. OP is clear. Oral mucosa dry. NECK: Supple. No cervical adenopathy. No thyromegaly. No carotid bruits. No JVD appreciated. Cervical spine with full active and passive range of motion. No meningeal signs noted. CHEST: Lungs are clear to auscultation bilaterally. CARDIOVASCULAR: S1 and S2 without noted murmur, rub, or gallop. ABDOMEN: Soft with bowel sounds positive in all 4 quadrants. Midline wound VAC in place. No peripheral erythema. Positive ostomy with liquid yellow stool. No suprapubic tenderness elicited. EXTREMITIES: Warm, dry with fair turgor. No clubbing, cyanosis, or asymmetric edema appreciated. Pulses are palpable distally at the dorsalis pedis, posterior tibial, and popliteal arteries bilaterally. Capillary refill less than 2 seconds. NEUROLOGIC: Cranial nerves 2 through 12 are grossly intact. No focal or lateralizing signs appreciated. PERTINENT LAB AND X-RAY FINDINGS: Sodium 116, potassium 5.5, chloride 83, CO2 of 18, anion gap 21, BUN 11, creatinine 1.77, estimated GFR of 30, glucose 114, and calcium 9.7. AST 60, ALT 32, alkaline phosphatase 315. Albumin 3.9. CBC showed a white blood cell count of 19.4, hemoglobin 12, hematocrit 38, and platelet count 1092 with 70% neutrophils. ASSESSMENT AND PLAN: 1. Nausea and vomiting. The patient will be admitted to the medical floor. Suspect multifactorial in conjunction with the dehydration. We will continue IV normal saline at 125 mL/h. Encourage free water intake orally. Zofran 8 mg IV q.6 hours p.r.n. Add Reglan 5 mg IV q.6 hours. 2. Hyponatremia. Suspect secondary to dehydration and poor oral intake. We will continue intravenous normal saline as stated previously and monitor serial sodiums. 3. Acute kidney injury. Suspect secondary to dehydration and poor oral intake. We will continue IV fluids and avoid nephrotoxic agents and limit contrast exposure. 4. Hyperkalemia. Hold potassium supplementation. Continue IV fluids as outlined previously. Serial potassium monitoring. 5. Colon adenocarcinoma, status post resection. Continue supportive management. Pain control as clinically indicated. Continue IV fluids as outlined previously. 6. Status post abdominal wound dehiscence with wound VAC. We will continue wound VAC therapy and consult Wound Care Services for daily assessment and change of wound VAC dressing. 7. Thrombocytosis. Suspect secondary to history of abdominal abscess and recent abdominal wound dehiscence. Continue serial monitoring and repeat platelet count in the a.m. 8. Prophylaxis. Sequential compression devices while in bed. Pepcid 20 mg IV q.12 hours. PT evaluation. CODE STATUS: Full. Surrogate medical decision maker is the patient's spouse. Job ID: [id number]
[2018-07-27] MEDS: Ondansetron PF 4 MG/2 ML Vial IVP SCH ×4 (05:08→23:52)
[2018-07-27] MEDS: Metoclopramide HCl 10 MG/2 ML VIAL IVP SCH ×2 (05:08→11:54)
[2018-07-27] MEDS: traMADol HCl 50 MG TAB PO PRN ×3 (05:16→21:24)
[2018-07-27] MEDS: Sodium Chloride 0.9% 1,000 ML IV SCH ×2 (08:16→17:54)
[2018-07-27] MEDS: Famotidine/PF 20 mg/2ml Vial SLOW IVP SCH ×2 (08:17→21:22)
[2018-07-27] MEDS: Escitalopram Oxalate 20 mg Tablet PO SCH ×2 (08:17→08:18)
[2018-07-27 09:42] LABS: Hemoglobin 9.2 g/dL (12.0-16.0); Mean Corpuscular HGB CONC 32.3 g/dL (32.0-36.0); Mean Corpuscular Hemoglobin 29.9 pg (27.0-31.0); Mean Corpuscular Volume 92.6 fL (78.0-98.0); Mean Platelet Volume 6.6 fL (7.4-10.4); Platelet Count 786 thou/uL (130-400); Red Blood Cell (RBC) Count 3.08 mill/uL (4.20-5.40); White Blood Cell (WBC) Count 13.3 thou/uL (4.8-10.8)
[2018-07-27 09:49] LABS: Anion Gap 16 mmol/L (10-20); BUN (Urea Nitrogen) 6 mg/dL (9.8-20.1); Calc. Creatinine Clearance 27 mL/min (70-130); Carbon Dioxide 17 mmol/L (22-29); Chloride 100 mmol/L (98-107); Estimated GFR-MDRD 32; Glucose 90 mg/dL (70-105); Magnesium Less than 0.7 mg/dL (1.6-2.6); Phosphorus 4.3 mg/dL (2.3-4.7); Sodium 129 mmol/L (136-145)
[2018-07-27 13:36] LABS: Band 4 % (5-11); Lymphocytes 37 % (21-51); Monocytes 5 % (0-10); Neutrophil 54 % (42-75)
[2018-07-27 13:37] LABS: Anisocytosis SLIGHT = 6-15 cells (100X) (0-5/hpf); MDiff Complete? YES; Platelet Morphology Comment Appears Increased
--- NOTE | 2018-07-27 13:55 | PDOC.GSPN ---
Surgery Progress Note: Subj - Subjective Narrative: Feels better after IVF Surgery Progress Note: Obj - Vital signs Vital signs: Vital Signs - Most Recent Temp Pulse Resp BP Pulse Ox 98.1 F 90 16 121/76 93 L 07/27/18 08:10 07/27/18 08:10 07/27/18 08:10 07/27/18 08:10 07/27/18 08:10 - Physical Exam General: no distress Respiratory: clear to auscultation Abdomen: soft, non tender, nondistended Wound: wound vac Surgery Progress Note: Results - Labs Result Diagrams: 07/27/18 08:27 07/27/18 08:27 Lab results: Laboratory Results - last 24 hr 07/27/18 07/27/18 08:27 08:27 WBC 13.3 H RBC 3.08 L Hgb 9.2 L Hct 28.5 L MCV 92.6 MCH 29.9 MCHC 32.3 RDW 15.0 H Plt Count 786 H MPV 6.6 L Neutrophils % (Manual) 54 Band Neuts % (Manual) 4 L Lymphocytes % (Manual) 37 Monocytes % (Manual) 5 Plt Morphology Comment Appears Increased H Anisocytosis SLIGHT = 6-15 cells Sodium 129 L Potassium 4.0 Chloride 100 Carbon Dioxide 17 L Anion Gap 16 BUN 6 L Creatinine 1.65 H Estimated GFR (MDRD) 32 Glucose 90 Calcium 8.0 Phosphorus 4.3 Magnesium Less than 0.7 L* Surgery Progress Note: A/P - Problem (1) Mild dehydration Current Visit: No Code(s): E86.0 - DEHYDRATION Status: Acute Assessment and Plan: continue ivf -start immodium high dose (2) Intra-abdominal abscess Current Visit: No Code(s): K65.1 - PERITONEAL ABSCESS Status: Acute Assessment and Plan: Fluid collection small on repeat CT,no drainage needed - Plan Plan: Keep on IVF until more control over high output ileostomy
--- NOTE | 2018-07-27 14:13 | PDOC.PN ---
- Subjective Encounter Start Date: 07/27/18 Encounter Start Time: 12:00 Subjective: feels better this morning -: no sob or wheezing - Objective Resuscitation Status - Order Detail: 07/26/18 17:44 Resuscitation Status Routine Resuscitation Status: FULL: Full Resuscitation MAR Reviewed: Yes Vital Signs & Weight: Vital Signs (12 hours) Temp Pulse Resp BP Pulse Ox 07/27/18 08:10 98.1 F 90 16 121/76 93 L Weight Admit Weight 97 lb 1 oz Weight 97 lb 1 oz I&O: 07/26/18 07/27/18 07/28/18 06:59 06:59 06:59 Intake Total 1165 Output Total 600 Balance 565 Result Diagrams: 07/27/18 08:27 07/27/18 08:27 Phys Exam - Physical Examination HEENT: PERRLA, moist MMs Neck: no JVD, supple Respiratory: no wheezing, no rales Cardiovascular: RRR, no significant murmur Gastrointestinal: soft, positive bowel sounds wound vac to abd wound+ Musculoskeletal: no edema, pulses present Neurological: non-focal, moves all 4 limbs Psychiatric: normal affect, A&O x 3 Dx/Plan (1) Severe dehydration Code(s): E86.0 - DEHYDRATION Status: Acute (2) Hyponatremia Code(s): E87.1 - HYPO-OSMOLALITY AND HYPONATREMIA Status: Acute (3) RUT (acute kidney injury) Code(s): N17.9 - ACUTE KIDNEY FAILURE, UNSPECIFIED Status: Acute (4) Metabolic acidosis Code(s): E87.2 - ACIDOSIS Status: Acute (5) Intra-abdominal abscess Code(s): K65.1 - PERITONEAL ABSCESS Status: Chronic (6) Crohn's disease Code(s): K50.90 - CROHN'S DISEASE, UNSPECIFIED, WITHOUT COMPLICATIONS Status: Chronic Qualifiers: Gastrointestinal tract location: small and large intestine Comment: h/o ileocecectomy for stricture and adenocarcinoma- completely removed with clear margins (7) Depression Code(s): F32.9 - MAJOR DEPRESSIVE DISORDER, SINGLE EPISODE, UNSPECIFIED Status : Chronic Qualifiers: Depression Type: major depressive disorder Active/Remission status: in full remission (8) GERD (gastroesophageal reflux disease) Code(s): K21.9 - GASTRO-ESOPHAGEAL REFLUX DISEASE WITHOUT ESOPHAGITIS Status: Chronic Qualifiers: Esophagitis presence: esophagitis presence not specified Qualified Code(s) : K21.9 - Gastro-esophageal reflux disease without esophagitis - Plan iv hydration -: is on loperamide for high output ileostomy -: electrolytes are slowly getting corrected -: mgso4 1g iv x1 then oral -: duonebs, diflucan. To amb as tolerated * . Review of Systems - Medications/Allergies Allergies/Adverse Reactions: Allergies Allergy/AdvReac Type Severity Reaction Status Date / Time ciprofloxacin [From Cipro] Allergy Verified 07/15/18 23:27 hydrocodone AdvReac Verified 07/17/18 21:52 Medications: Current Medications Acetaminophen (Tylenol) 1,000 mg PO Q6H PRN PRN Reason: Mild Pain (1-3) Escitalopram Oxalate (Lexapro) 20 mg PO DAILY [facility] Last Admin: 07/27/18 08:18 Dose: Not Given Famotidine (Pepcid) 20 mg SLOW IVP Q12HR [facility] Last Admin: 07/27/18 08:17 Dose: 20 mg Fluconazole (Diflucan) 200 mg PO 2100 [facility] Last Admin: 07/26/18 20:59 Dose: 200 mg Sodium Chloride (Normal Saline 0.9%) 1,000 mls @ 125 mls/hr IV .Q8H [facility] Last Admin: 07/27/18 08:16 Dose: 1,000 mls Loperamide HCl (Imodium) 4 mg PO QID [facility] Magnesium Oxide (Magnesium Oxide) 400 mg PO BID [facility] Metoclopramide HCl (Reglan) 5 mg IVP Q6HR PRN PRN Reason: nausea Ondansetron HCl (Zofran) 8 mg IVP Q6HR [facility] Last Admin: 07/27/18 11:54 Dose: 8 mg Tramadol HCl (Ultram) 50 mg PO Q6H PRN PRN Reason: Moderate Pain (4-6) Last Admin: 07/27/18 11:51 Dose: 50 mg Tramadol HCl (Ultram) 100 mg PO Q6H PRN PRN Reason: Severe Pain (7-10) Trazodone HCl (Desyrel) 50 mg PO HSPRN PRN PRN Reason: Insomnia
[2018-07-27] MEDS: Loperamide HCl 2 MG CAP PO SCH ×2 (17:54→21:23)
[2018-07-27] MEDS ORDERED: Fluconazole 100 MG TAB PO SCH (21:00)
[2018-07-27] MEDS: Fluconazole 100 MG TAB PO SCH (21:23)
[2018-07-27] MEDS: Magnesium Oxide 400 MG TAB PO SCH (21:24)
[2018-07-28] MEDS: Sodium Chloride 0.9% 1,000 ML IV SCH ×3 (02:16→12:56)
[2018-07-28] MEDS: traMADol HCl 50 MG TAB PO PRN ×2 (05:43→20:33)
[2018-07-28] MEDS: Ondansetron PF 4 MG/2 ML Vial IVP SCH ×3 (05:43→18:54)
[2018-07-28 08:36] LABS: #Basophils 0.1 thou/uL (0.0-0.2); #Eosinphils 0.3 thou/uL (0.0-0.7); #Lymphocytes 3.1 thou/uL (1.20-3.40); #Monocytes 1.1 thou/uL (0.11-0.59); #Neutrophils 6.9 thou/uL (1.40-6.50); %Basophils 1.1 % (0.0-1.0); %Lymphocytes 26.6 % (21.0-51.0); %Monocytes 9.6 % (0.0-10.0); %Neutrophils 59.8 % (42.0-75.0); Hemoglobin 8.4 g/dL (12.0-16.0); Mean Corpuscular HGB CONC 32.9 g/dL (32.0-36.0); Mean Corpuscular Hemoglobin 31.2 pg (27.0-31.0); Mean Corpuscular Volume 95.1 fL (78.0-98.0); Mean Platelet Volume 6.1 fL (7.4-10.4); Platelet Count 679 thou/uL (130-400); RBC Distribution Width 15.1 % (11.5-14.5); White Blood Cell (WBC) Count 11.6 thou/uL (4.8-10.8)
[2018-07-28] MEDS: Escitalopram Oxalate 20 mg Tablet PO SCH (08:45)
[2018-07-28] MEDS: Magnesium Oxide 400 MG TAB PO SCH ×2 (08:45→20:27)
[2018-07-28] MEDS: Loperamide HCl 2 MG CAP PO SCH ×4 (08:45→20:27)
[2018-07-28 08:48] LABS: ALT (SGPT) 20 U/L (8-55); AST (SGOT) 35 U/L (5-34); Albumin 2.5 g/dL (3.5-5.0); Alkaline Phosphatase 170 U/L (40-150); Anion Gap 13 mmol/L (10-20); BUN (Urea Nitrogen) Less than 4 mg/dL (9.8-20.1); Bilirubin, Total 0.2 mg/dL (0.2-1.2); Calc. Creatinine Clearance 31 mL/min (70-130); Calcium 7.9 mg/dL (7.8-10.44); Carbon Dioxide 18 mmol/L (22-29); Chloride 106 mmol/L (98-107); Estimated GFR-MDRD 38; Globulin 3.1 g/dL (2.4-3.5); Glucose 82 mg/dL (70-105); Magnesium 0.9 mg/dL (1.6-2.6); Protein, Total 5.6 g/dL (6.0-8.3); Sodium 133 mmol/L (136-145)
--- NOTE | 2018-07-28 11:11 | PDOC.PN ---
- Subjective Encounter Start Date: 07/28/18 Encounter Start Time: 10:35 Subjective: feels better, still has watery ileostomy drainage -: no sob, is amb in hallway - Objective Resuscitation Status - Order Detail: 07/26/18 17:44 Resuscitation Status Routine Resuscitation Status: FULL: Full Resuscitation MAR Reviewed: Yes Vital Signs & Weight: Vital Signs (12 hours) Temp Pulse Resp BP Pulse Ox 07/28/18 07:26 97.9 F 92 18 119/73 95 Weight Admit Weight 97 lb 1 oz Weight 97 lb 1 oz I&O: 07/27/18 07/28/18 07/29/18 06:59 06:59 06:59 Intake Total 1165 2110 Output Total 600 100 Balance 565 2009 Result Diagrams: 07/28/18 08:08 07/28/18 08:08 Phys Exam - Physical Examination HEENT: PERRLA, moist MMs Neck: no JVD, supple Respiratory: no wheezing, no rales Cardiovascular: RRR, no significant murmur Gastrointestinal: soft, non-tender, positive bowel sounds liq stool in ileostomy Musculoskeletal: no edema, pulses present Neurological: non-focal, moves all 4 limbs Psychiatric: normal affect, A&O x 3 Dx/Plan (1) Severe dehydration Code(s): E86.0 - DEHYDRATION Status: Acute Comment: resolving (2) Hyponatremia Code(s): E87.1 - HYPO-OSMOLALITY AND HYPONATREMIA Status: Resolved (3) RUT (acute kidney injury) Code(s): N17.9 - ACUTE KIDNEY FAILURE, UNSPECIFIED Status: Acute (4) Metabolic acidosis Code(s): E87.2 - ACIDOSIS Status: Acute (5) Intra-abdominal abscess Code(s): K65.1 - PERITONEAL ABSCESS Status: Chronic (6) Crohn's disease Code(s): K50.90 - CROHN'S DISEASE, UNSPECIFIED, WITHOUT COMPLICATIONS Status: Chronic Qualifiers: Gastrointestinal tract location: small and large intestine Comment: h/o ileocecectomy for stricture and adenocarcinoma- completely removed with clear margins (7) Depression Code(s): F32.9 - MAJOR DEPRESSIVE DISORDER, SINGLE EPISODE, UNSPECIFIED Status : Chronic Qualifiers: Depression Type: major depressive disorder Active/Remission status: in full remission (8) GERD (gastroesophageal reflux disease) Code(s): K21.9 - GASTRO-ESOPHAGEAL REFLUX DISEASE WITHOUT ESOPHAGITIS Status: Chronic Qualifiers: Esophagitis presence: esophagitis presence not specified Qualified Code(s) : K21.9 - Gastro-esophageal reflux disease without esophagitis - Plan mgso4 1g iv, continue oral supplements -: continue iv fluids at 50mls/hr, watch for electrolytes -: is on diflucan, nebs prn -: labs in am * . Review of Systems - Medications/Allergies Allergies/Adverse Reactions: Allergies Allergy/AdvReac Type Severity Reaction Status Date / Time ciprofloxacin [From Cipro] Allergy Verified 07/15/18 23:27 hydrocodone AdvReac Verified 07/17/18 21:52 Medications: Current Medications Acetaminophen (Tylenol) 1,000 mg PO Q6H PRN PRN Reason: Mild Pain (1-3) Albuterol/Ipratropium (Duoneb) 3 ml NEB [id number] PRN PRN Reason: SOB &/or Wheezing Escitalopram Oxalate (Lexapro) 20 mg PO DAILY [facility] Last Admin: 07/28/18 08:45 Dose: Not Given Fluconazole (Diflucan) 200 mg PO 2100 [facility] Last Admin: 07/27/18 21:23 Dose: 200 mg Sodium Chloride (Normal Saline 0.9%) 1,000 mls @ 50 mls/hr IV .Q20H [facility] Last Admin: 07/28/18 08:45 Dose: Not Given Magnesium Sulfate 1 gm/ Sodium (Chloride) 102 mls @ 100 mls/hr IVPB ONE [facility] Loperamide HCl (Imodium) 4 mg PO QID [facility] Last Admin: 07/28/18 08:45 Dose: 4 mg Magnesium Oxide (Magnesium Oxide) 400 mg PO BID [facility] Last Admin: 07/28/18 08:45 Dose: 400 mg Metoclopramide HCl (Reglan) 5 mg IVP Q6H PRN PRN Reason: nausea Ondansetron HCl (Zofran) 8 mg IVP Q6HR [facility] Last Admin: 07/28/18 05:43 Dose: 8 mg Tramadol HCl (Ultram) 50 mg PO Q6H PRN PRN Reason: Moderate Pain (4-6) Last Admin: 07/28/18 05:43 Dose: 50 mg Tramadol HCl (Ultram) 100 mg PO Q6H PRN PRN Reason: Severe Pain (7-10) Trazodone HCl (Desyrel) 50 mg PO HSPRN PRN PRN Reason: Insomnia
[2018-07-28] MEDS: Fluconazole 100 MG TAB PO SCH (20:27)
[2018-07-29] MEDS: Ondansetron PF 4 MG/2 ML Vial IVP SCH ×4 (00:17→15:56)
[2018-07-29] MEDS: Sodium Chloride 0.9% 1,000 ML IV SCH (00:19)
[2018-07-29] MEDS: traMADol HCl 50 MG TAB PO PRN ×2 (06:00→11:09)
[2018-07-29 06:35] LABS: #Basophils 0.1 thou/uL (0.0-0.2); #Eosinphils 0.5 thou/uL (0.0-0.7); #Lymphocytes 4.3 thou/uL (1.20-3.40); #Monocytes 1.2 thou/uL (0.11-0.59); #Neutrophils 8.3 thou/uL (1.40-6.50); %Basophils 0.8 % (0.0-1.0); %Eosinophils 3.5 % (0.0-10.0); %Lymphocytes 29.9 % (21.0-51.0); %Monocytes 8.2 % (0.0-10.0); %Neutrophils 57.5 % (42.0-75.0); Mean Corpuscular HGB CONC 31.9 g/dL (32.0-36.0); Mean Corpuscular Hemoglobin 30.4 pg (27.0-31.0); Mean Corpuscular Volume 95.3 fL (78.0-98.0); Mean Platelet Volume 6.1 fL (7.4-10.4); Platelet Count 693 thou/uL (130-400); RBC Distribution Width 15.1 % (11.5-14.5); Red Blood Cell (RBC) Count 2.95 mill/uL (4.20-5.40); White Blood Cell (WBC) Count 14.4 thou/uL (4.8-10.8)
[2018-07-29 06:54] LABS: Anion Gap 13 mmol/L (10-20); BUN (Urea Nitrogen) Less than 4 mg/dL (9.8-20.1); Calc. Creatinine Clearance 32 mL/min (70-130); Calcium 8.3 mg/dL (7.8-10.44); Carbon Dioxide 20 mmol/L (22-29); Chloride 104 mmol/L (98-107); Estimated GFR-MDRD 39; Glucose 79 mg/dL (70-105); Magnesium 1.3 mg/dL (1.6-2.6); Potassium 3.8 mmol/L (3.5-5.1); Sodium 133 mmol/L (136-145)
[2018-07-29] MEDS: Loperamide HCl 2 MG CAP PO SCH ×4 (09:00→20:53)
[2018-07-29] MEDS: Magnesium Oxide 400 MG TAB PO SCH ×2 (09:01→20:53)
[2018-07-29] MEDS: Escitalopram Oxalate 20 mg Tablet PO SCH (09:03)
--- NOTE | 2018-07-29 14:42 | PRG ---
DATE OF SERVICE: 07/29/2018 CHIEF COMPLAINT: High-output ileostomy. SUBJECTIVE: Ms. Kwan is doing well. She still does not have much of an appetite, but she feels much better than upon admission. She is afebrile and her vital signs are stable. Ileostomy output does not look like it is being measured in the chart accurately. On exam, her abdomen is soft. Her ileostomy output is almost all clear liquid. ASSESSMENT: History of Crohn's and terminal ileum malignancy, now with high-output ileostomy. PLAN: Add tincture of opium. We will write for accurate in's and out's, needs to stay through the weekend to guarantee that her ostomy output is more stable before discharge, otherwise she will return. Dr. Springer cover me this weekend. Job ID: [id number]
--- NOTE | 2018-07-29 15:04 | PDOC.PN ---
- Subjective Encounter Start Date: 07/29/18 Encounter Start Time: 12:20 Subjective: no nausea or vomiting -: still has watery stool in her ileostomy - Objective Resuscitation Status - Order Detail: 07/26/18 17:44 Resuscitation Status Routine Resuscitation Status: FULL: Full Resuscitation MAR Reviewed: Yes Vital Signs & Weight: Vital Signs (12 hours) Temp Pulse Resp BP Pulse Ox 07/29/18 07:58 97.9 F 80 16 137/83 93 L Weight Admit Weight 97 lb 1 oz Weight 97 lb 1 oz I&O: 07/28/18 07/29/18 07/30/18 06:59 06:59 06:59 Intake Total 0 2520 Output Total 100 50 50 Balance 2009 2470 -50 Result Diagrams: 07/29/18 06:05 07/29/18 06:05 Phys Exam - Physical Examination HEENT: PERRLA, sclera anicteric Neck: no JVD, supple Respiratory: no wheezing, no rales Cardiovascular: RRR, no significant murmur Gastrointestinal: soft, non-tender, positive bowel sounds ileostomy has watery stool Musculoskeletal: no edema, pulses present Neurological: non-focal, moves all 4 limbs Psychiatric: normal affect, A&O x 3 Dx/Plan (1) Severe dehydration Code(s): E86.0 - DEHYDRATION Status: Acute Comment: resolving (2) Hyponatremia Code(s): E87.1 - HYPO-OSMOLALITY AND HYPONATREMIA Status: Resolved (3) RUT (acute kidney injury) Code(s): N17.9 - ACUTE KIDNEY FAILURE, UNSPECIFIED Status: Acute (4) Metabolic acidosis Code(s): E87.2 - ACIDOSIS Status: Acute (5) Intra-abdominal abscess Code(s): K65.1 - PERITONEAL ABSCESS Status: Chronic (6) Crohn's disease Code(s): K50.90 - CROHN'S DISEASE, UNSPECIFIED, WITHOUT COMPLICATIONS Status: Chronic Qualifiers: Gastrointestinal tract location: small and large intestine Comment: h/o ileocecectomy for stricture and adenocarcinoma- completely removed with clear margins (7) Depression Code(s): F32.9 - MAJOR DEPRESSIVE DISORDER, SINGLE EPISODE, UNSPECIFIED Status : Chronic Qualifiers: Depression Type: major depressive disorder Active/Remission status: in full remission (8) GERD (gastroesophageal reflux disease) Code(s): K21.9 - GASTRO-ESOPHAGEAL REFLUX DISEASE WITHOUT ESOPHAGITIS Status: Chronic Qualifiers: Esophagitis presence: esophagitis presence not specified Qualified Code(s) : K21.9 - Gastro-esophageal reflux disease without esophagitis - Plan all her electrolytes are stable -: still has watery output from her ileostomy -: pedialyte 1 liter a day per dietary adv -: d/w , tincture of opium, will have reversal of ileostomy in 8 wks -: nebs prn, is ambulating in hallway * . Review of Systems - Medications/Allergies Allergies/Adverse Reactions: Allergies Allergy/AdvReac Type Severity Reaction Status Date / Time ciprofloxacin [From Cipro] Allergy Verified 07/15/18 23:27 hydrocodone AdvReac Verified 07/17/18 21:52 Medications: Current Medications Acetaminophen (Tylenol) 1,000 mg PO Q6H PRN PRN Reason: Mild Pain (1-3) Albuterol/Ipratropium (Duoneb) 3 ml NEB [id number] PRN PRN Reason: SOB &/or Wheezing Escitalopram Oxalate (Lexapro) 20 mg PO DAILY [facility] Last Admin: 07/29/18 09:03 Dose: Not Given Fluconazole (Diflucan) 200 mg PO 2100 [facility] Last Admin: 07/28/18 20:27 Dose: 200 mg Sodium Chloride (Normal Saline 0.9%) 1,000 mls @ 50 mls/hr IV .Q20H [facility] Last Admin: 07/29/18 00:19 Dose: 1,000 mls Loperamide HCl (Imodium) 4 mg PO QID [facility] Last Admin: 07/29/18 11:10 Dose: 4 mg Magnesium Oxide (Magnesium Oxide) 400 mg PO BID [facility] Last Admin: 07/29/18 09:01 Dose: 400 mg Metoclopramide HCl (Reglan) 5 mg IVP Q6H PRN PRN Reason: nausea Ondansetron HCl (Zofran) 8 mg IVP Q6HR [facility] Last Admin: 07/29/18 11:10 Dose: 8 mg Opium Tincture (Opium Tincture 10%) 0.6 ml PO TID [facility] Tramadol HCl (Ultram) 50 mg PO Q6H PRN PRN Reason: Moderate Pain (4-6) Last Admin: 07/29/18 11:09 Dose: 50 mg Tramadol HCl (Ultram) 100 mg PO Q6H PRN PRN Reason: Severe Pain (7-10) Trazodone HCl (Desyrel) 50 mg PO HSPRN PRN PRN Reason: Insomnia
[2018-07-29] MEDS: Opium Tincture 10% (1ml Charge) PO SCH ×2 (15:55→20:55)
[2018-07-29] MEDS: Metoclopramide HCl 10 MG/2 ML VIAL IVP PRN (20:50)
[2018-07-29] MEDS: Fluconazole 100 MG TAB PO SCH (20:53)
[2018-07-30] MEDS: Ondansetron PF 4 MG/2 ML Vial IVP SCH ×5 (00:15→23:29)
[2018-07-30] MEDS: Sodium Chloride 0.9% 1,000 ML IV SCH ×2 (00:19→20:09)
[2018-07-30 05:58] LABS: Anion Gap 10 mmol/L (10-20); BUN (Urea Nitrogen) 4 mg/dL (9.8-20.1); Calc. Creatinine Clearance 35 mL/min (70-130); Calcium 8.1 mg/dL (7.8-10.44); Carbon Dioxide 22 mmol/L (22-29); Chloride 104 mmol/L (98-107); Estimated GFR-MDRD 43; Glucose 73 mg/dL (70-105); Potassium 3.4 mmol/L (3.5-5.1); Sodium 133 mmol/L (136-145)
[2018-07-30] MEDS: Escitalopram Oxalate 20 mg Tablet PO SCH (09:33)
[2018-07-30] MEDS: Loperamide HCl 2 MG CAP PO SCH ×4 (09:34→20:07)
[2018-07-30] MEDS: Opium Tincture 10% (1ml Charge) PO SCH ×3 (09:34→23:29)
[2018-07-30] MEDS: Magnesium Oxide 400 MG TAB PO SCH (09:35)
[2018-07-30] MEDS: Metoclopramide HCl 10 MG/2 ML VIAL IVP PRN (09:37)
--- NOTE | 2018-07-30 13:45 | PDOC.PN ---
- Subjective Encounter Start Date: 07/30/18 Encounter Start Time: 12:15 Subjective: no nausea or abd pain -: is tolerating oral diet - Objective Resuscitation Status - Order Detail: 07/26/18 17:44 Resuscitation Status Routine Resuscitation Status: FULL: Full Resuscitation MAR Reviewed: Yes Vital Signs & Weight: Vital Signs (12 hours) Temp Pulse Resp BP Pulse Ox 07/30/18 08:16 98.0 F 76 18 133/79 94 L 07/30/18 08:00 96 Weight Admit Weight 97 lb 1 oz Weight 97 lb 1 oz I&O: 07/29/18 07/30/18 07/31/18 06:59 06:59 06:59 Intake Total 2520 1757 Output Total 50 600 Balance 2470 1157 Result Diagrams: 07/29/18 06:05 07/30/18 05:16 Phys Exam - Physical Examination HEENT: PERRLA, moist MMs Neck: no JVD, supple Respiratory: no wheezing, no rales Cardiovascular: RRR, no significant murmur Gastrointestinal: soft, no distention, positive bowel sounds ileostomy has liq stool Musculoskeletal: no edema, pulses present Neurological: non-focal, moves all 4 limbs Psychiatric: normal affect, A&O x 3 Dx/Plan (1) Severe dehydration Code(s): E86.0 - DEHYDRATION Status: Acute Comment: resolving (2) Hyponatremia Code(s): E87.1 - HYPO-OSMOLALITY AND HYPONATREMIA Status: Resolved (3) RUT (acute kidney injury) Code(s): N17.9 - ACUTE KIDNEY FAILURE, UNSPECIFIED Status: Resolved (4) Metabolic acidosis Code(s): E87.2 - ACIDOSIS Status: Resolved (5) Intra-abdominal abscess Code(s): K65.1 - PERITONEAL ABSCESS Status: Chronic (6) Crohn's disease Code(s): K50.90 - CROHN'S DISEASE, UNSPECIFIED, WITHOUT COMPLICATIONS Status: Chronic Qualifiers: Gastrointestinal tract location: small and large intestine Comment: h/o ileocecectomy for stricture and adenocarcinoma- completely removed with clear margins (7) Depression Code(s): F32.9 - MAJOR DEPRESSIVE DISORDER, SINGLE EPISODE, UNSPECIFIED Status : Chronic Qualifiers: Depression Type: major depressive disorder Active/Remission status: in full remission (8) GERD (gastroesophageal reflux disease) Code(s): K21.9 - GASTRO-ESOPHAGEAL REFLUX DISEASE WITHOUT ESOPHAGITIS Status: Chronic Qualifiers: Esophagitis presence: esophagitis presence not specified Qualified Code(s) : K21.9 - Gastro-esophageal reflux disease without esophagitis - Plan still has very watery ileostomy drainage -: encourage po fluid intake -: pedialyte for electrolytes -: tincture of opium, loperamide for high output ileostomy -: need to compensate ileostomy loss of water/electrolytes * . Review of Systems - Medications/Allergies Allergies/Adverse Reactions: Allergies Allergy/AdvReac Type Severity Reaction Status Date / Time ciprofloxacin [From Cipro] Allergy Verified 07/15/18 23:27 hydrocodone AdvReac Verified 07/17/18 21:52 Medications: Current Medications Acetaminophen (Tylenol) 1,000 mg PO Q6H PRN PRN Reason: Mild Pain (1-3) Albuterol/Ipratropium (Duoneb) 3 ml NEB [id number] PRN PRN Reason: SOB &/or Wheezing Escitalopram Oxalate (Lexapro) 20 mg PO DAILY [facility] Last Admin: 07/30/18 09:33 Dose: Not Given Fluconazole (Diflucan) 200 mg PO 2100 [facility] Last Admin: 07/29/18 20:53 Dose: 200 mg Sodium Chloride (Normal Saline 0.9%) 1,000 mls @ 50 mls/hr IV .Q20H [facility] Last Admin: 07/30/18 00:19 Dose: 1,000 mls Loperamide HCl (Imodium) 4 mg PO QID [facility] Last Admin: 07/30/18 13:11 Dose: 4 mg Magnesium Oxide (Magnesium Oxide) 400 mg PO BID [facility] Last Admin: 07/30/18 09:35 Dose: 400 mg Metoclopramide HCl (Reglan) 5 mg IVP Q6H PRN PRN Reason: nausea Last Admin: 07/30/18 09:37 Dose: 5 mg Ondansetron HCl (Zofran) 8 mg IVP Q6HR [facility] Last Admin: 07/30/18 13:10 Dose: 8 mg Opium Tincture (Opium Tincture 10%) 0.6 ml PO TID [facility] Last Admin: 07/30/18 09:34 Dose: 0.6 ml Tramadol HCl (Ultram) 50 mg PO Q6H PRN PRN Reason: Moderate Pain (4-6) Last Admin: 07/29/18 11:09 Dose: 50 mg Tramadol HCl (Ultram) 100 mg PO Q6H PRN PRN Reason: Severe Pain (7-10) Trazodone HCl (Desyrel) 50 mg PO HSPRN PRN PRN Reason: Insomnia
--- NOTE | 2018-07-30 14:06 | EKG ---
Test Reason : Blood Pressure : / mmHG Vent. Rate : 089 BPM Atrial Rate : 089 BPM P-R Int : 112 ms QRS Dur : 066 ms QT Int : 388 ms P-R-T Axes : 012 061 069 degrees QTc Int : 472 ms Normal sinus rhythm Normal ECG Confirmed by LETICIA ADHIKARI M.D. ([id number]), mapping editor ILIANA SWEENEY ([id number] on 07/30/2018 2:04:59 PM Referred By: Confirmed By:LETICIA ADHIKARI M.D.
--- NOTE | 2018-07-30 15:47 | PRG ---
DATE OF SERVICE: 07/30/2018 SUBJECTIVE: She has no complaints. Her ileostomy output has diminished with tincture of opium administration in addition to Imodium. OBJECTIVE: VITAL SIGNS: Temperature 98 degrees and blood [id number]. LUNGS: Clear to auscultation. CARDIAC: Regular rate and rhythm without murmur or gallop. ABDOMEN: Soft and nontender. EXTREMITIES: Unremarkable. ASSESSMENT AND PLAN: Slowing ileostomy output. Diet as tolerated. The patient can be discharged home when medically fit. She will follow up with Dr. Hickey in the next few weeks. Job ID: [id number]
[2018-07-30] MEDS: traMADol HCl 50 MG TAB PO PRN (19:27)
[2018-07-30] MEDS: Fluconazole 100 MG TAB PO SCH (20:07)
[2018-07-31] MEDS: Ondansetron PF 4 MG/2 ML Vial IVP SCH ×2 (05:39→12:09)
[2018-07-31 06:36] LABS: Anion Gap 11 mmol/L (10-20); BUN (Urea Nitrogen) 4 mg/dL (9.8-20.1); Calc. Creatinine Clearance 35 mL/min (70-130); Calcium 7.8 mg/dL (7.8-10.44); Carbon Dioxide 24 mmol/L (22-29); Chloride 101 mmol/L (98-107); Estimated GFR-MDRD 44; Glucose 73 mg/dL (70-105); Potassium 3.4 mmol/L (3.5-5.1); Sodium 133 mmol/L (136-145)
[2018-07-31] MEDS: Escitalopram Oxalate 20 mg Tablet PO SCH (08:16)
[2018-07-31] MEDS: Loperamide HCl 2 MG CAP PO SCH ×4 (08:19→20:34)
[2018-07-31] MEDS: Metoclopramide HCl 10 MG/2 ML VIAL IVP PRN ×2 (08:19→15:55)
[2018-07-31] MEDS: Opium Tincture 10% (1ml Charge) PO SCH ×3 (08:20→20:34)
--- NOTE | 2018-07-31 10:45 | PDOC.PN ---
- Subjective Encounter Start Date: 07/31/18 Encounter Start Time: 10:00 Subjective: no nausea or vomiting -: no abd pain - Objective Resuscitation Status - Order Detail: 07/26/18 17:44 Resuscitation Status Routine Resuscitation Status: FULL: Full Resuscitation MAR Reviewed: Yes Vital Signs & Weight: Vital Signs (12 hours) Temp Pulse Resp BP Pulse Ox 07/31/18 07:49 97.4 F L 80 16 107/68 90 L Weight Admit Weight 97 lb 1 oz Weight 97 lb 1 oz I&O: 07/30/18 07/31/18 08/01/18 06:59 06:59 06:59 Intake Total 1757 4057 Output Total 600 1050 Balance 1157 3007 Result Diagrams: 07/29/18 06:05 07/31/18 05:25 Phys Exam - Physical Examination HEENT: PERRLA, moist MMs Neck: no JVD, supple Respiratory: no wheezing, no rales Cardiovascular: RRR, no significant murmur Gastrointestinal: soft, non-tender, positive bowel sounds ileostomy has some semisolid stool today Musculoskeletal: no edema, pulses present Neurological: non-focal, moves all 4 limbs Psychiatric: normal affect, A&O x 3 Dx/Plan (1) Severe dehydration Code(s): E86.0 - DEHYDRATION Status: Resolved (2) Hyponatremia Code(s): E87.1 - HYPO-OSMOLALITY AND HYPONATREMIA Status: Resolved (3) RUT (acute kidney injury) Code(s): N17.9 - ACUTE KIDNEY FAILURE, UNSPECIFIED Status: Resolved (4) Metabolic acidosis Code(s): E87.2 - ACIDOSIS Status: Resolved (5) Intra-abdominal abscess Code(s): K65.1 - PERITONEAL ABSCESS Status: Chronic (6) Crohn's disease Code(s): K50.90 - CROHN'S DISEASE, UNSPECIFIED, WITHOUT COMPLICATIONS Status: Chronic Qualifiers: Gastrointestinal tract location: small and large intestine Comment: h/o ileocecectomy for stricture and adenocarcinoma- completely removed with clear margins (7) Depression Code(s): F32.9 - MAJOR DEPRESSIVE DISORDER, SINGLE EPISODE, UNSPECIFIED Status : Chronic Qualifiers: Depression Type: major depressive disorder Active/Remission status: in full remission (8) GERD (gastroesophageal reflux disease) Code(s): K21.9 - GASTRO-ESOPHAGEAL REFLUX DISEASE WITHOUT ESOPHAGITIS Status: Chronic Qualifiers: Esophagitis presence: esophagitis presence not specified Qualified Code(s) : K21.9 - Gastro-esophageal reflux disease without esophagitis - Plan ileostomy output is semisolid this am -: encourage po fluid and pedialyte -: is on loperamide and tincture of opium -: dc plan per gen surg adv -: dc iv fluids, counselled to avoid fiber intake * . Review of Systems - Medications/Allergies Allergies/Adverse Reactions: Allergies Allergy/AdvReac Type Severity Reaction Status Date / Time ciprofloxacin [From Cipro] Allergy Verified 07/15/18 23:27 hydrocodone AdvReac Verified 07/17/18 21:52 Medications: Current Medications Acetaminophen (Tylenol) 1,000 mg PO Q6H PRN PRN Reason: Mild Pain (1-3) Albuterol/Ipratropium (Duoneb) 3 ml NEB [id number] PRN PRN Reason: SOB &/or Wheezing Escitalopram Oxalate (Lexapro) 20 mg PO DAILY [facility] Last Admin: 07/31/18 08:16 Dose: Not Given Fluconazole (Diflucan) 200 mg PO 2100 [facility] Last Admin: 07/30/18 20:07 Dose: 200 mg Sodium Chloride (Normal Saline 0.9%) 1,000 mls @ 50 mls/hr IV .Q20H [facility] Last Admin: 07/30/18 20:09 Dose: 1,000 mls Loperamide HCl (Imodium) 4 mg PO QID [facility] Last Admin: 07/31/18 08:19 Dose: 4 mg Metoclopramide HCl (Reglan) 5 mg IVP Q6H PRN PRN Reason: nausea Last Admin: 07/31/18 08:19 Dose: 5 mg Ondansetron HCl (Zofran) 8 mg IVP Q6HR [facility] Last Admin: 07/31/18 05:39 Dose: 8 mg Opium Tincture (Opium Tincture 10%) 0.6 ml PO TID [facility] Last Admin: 07/31/18 08:20 Dose: 0.6 ml Tramadol HCl (Ultram) 50 mg PO Q6H PRN PRN Reason: Moderate Pain (4-6) Last Admin: 07/30/18 19:27 Dose: 50 mg Tramadol HCl (Ultram) 100 mg PO Q6H PRN PRN Reason: Severe Pain (7-10) Trazodone HCl (Desyrel) 50 mg PO HSPRN PRN PRN Reason: Insomnia
[2018-07-31] MEDS: Sodium Chloride 0.9% 1,000 ML IV SCH (15:56)
[2018-07-31] MEDS: Ondansetron ODT 8 MG TAB PO SCH ×2 (17:25→23:51)
[2018-07-31] MEDS: Fluconazole 100 MG TAB PO SCH (20:34)
[2018-08-01] MEDS: Ondansetron ODT 8 MG TAB PO SCH ×3 (05:48→18:03)
[2018-08-01 06:41] LABS: Anion Gap 12 mmol/L (10-20); BUN (Urea Nitrogen) 4 mg/dL (9.8-20.1); Calc. Creatinine Clearance 37 mL/min (70-130); Carbon Dioxide 24 mmol/L (22-29); Chloride 101 mmol/L (98-107); Estimated GFR-MDRD 46; Glucose 75 mg/dL (70-105); Sodium 134 mmol/L (136-145)
[2018-08-01] MEDS: Loperamide HCl 2 MG CAP PO SCH ×4 (09:32→21:42)
[2018-08-01] MEDS: Escitalopram Oxalate 20 mg Tablet PO SCH (09:33)
[2018-08-01] MEDS: Opium Tincture 10% (1ml Charge) PO SCH ×3 (09:41→21:42)
[2018-08-01] MEDS: traMADol HCl 50 MG TAB PO PRN (11:06)
--- NOTE | 2018-08-01 13:52 | PDOC.PN ---
- Subjective Encounter Start Date: 08/01/18 Encounter Start Time: 07:10 Subjective: no nausea or abd pain - Objective Resuscitation Status - Order Detail: 07/26/18 17:44 Resuscitation Status Routine Resuscitation Status: FULL: Full Resuscitation MAR Reviewed: Yes Vital Signs & Weight: Vital Signs (12 hours) Temp Pulse Resp BP Pulse Ox 08/01/18 08:06 98.1 F 79 16 124/69 94 L 08/01/18 08:00 94 L Weight Admit Weight 97 lb 1 oz Weight 97 lb 1 oz I&O: 07/31/18 08/01/18 08/02/18 06:59 06:59 06:59 Intake Total 4057 2620 Output Total 1050 700 Balance 3007 1920 Result Diagrams: 07/29/18 06:05 08/01/18 04:19 Phys Exam - Physical Examination HEENT: PERRLA, moist MMs Neck: no JVD, supple Respiratory: no wheezing, no rales Cardiovascular: RRR, no significant murmur Gastrointestinal: soft, no distention, positive bowel sounds wound vac+, ileostomy has liq stool Musculoskeletal: no edema, pulses present Neurological: non-focal, moves all 4 limbs Psychiatric: normal affect, A&O x 3 Dx/Plan (1) Severe dehydration Code(s): E86.0 - DEHYDRATION Status: Resolved (2) Hyponatremia Code(s): E87.1 - HYPO-OSMOLALITY AND HYPONATREMIA Status: Resolved (3) RUT (acute kidney injury) Code(s): N17.9 - ACUTE KIDNEY FAILURE, UNSPECIFIED Status: Resolved (4) Metabolic acidosis Code(s): E87.2 - ACIDOSIS Status: Resolved (5) Intra-abdominal abscess Code(s): K65.1 - PERITONEAL ABSCESS Status: Chronic (6) Crohn's disease Code(s): K50.90 - CROHN'S DISEASE, UNSPECIFIED, WITHOUT COMPLICATIONS Status: Chronic Qualifiers: Gastrointestinal tract location: small and large intestine Comment: h/o ileocecectomy for stricture and adenocarcinoma- completely removed with clear margins (7) Depression Code(s): F32.9 - MAJOR DEPRESSIVE DISORDER, SINGLE EPISODE, UNSPECIFIED Status : Chronic Qualifiers: Depression Type: major depressive disorder Active/Remission status: in full remission (8) GERD (gastroesophageal reflux disease) Code(s): K21.9 - GASTRO-ESOPHAGEAL REFLUX DISEASE WITHOUT ESOPHAGITIS Status: Chronic Qualifiers: Esophagitis presence: esophagitis presence not specified Qualified Code(s) : K21.9 - Gastro-esophageal reflux disease without esophagitis - Plan hemostable -: may dc home if ok with -: is on tincture of opium and loperamide -: pedialyte 1 ltr daily * . Review of Systems - Medications/Allergies Allergies/Adverse Reactions: Allergies Allergy/AdvReac Type Severity Reaction Status Date / Time ciprofloxacin [From Cipro] Allergy Verified 07/15/18 23:27 hydrocodone AdvReac Verified 07/17/18 21:52 Medications: Current Medications Acetaminophen (Tylenol) 1,000 mg PO Q6H PRN PRN Reason: Mild Pain (1-3) Albuterol/Ipratropium (Duoneb) 3 ml NEB [id number] PRN PRN Reason: SOB &/or Wheezing Escitalopram Oxalate (Lexapro) 20 mg PO DAILY [facility] Last Admin: 08/01/18 09:33 Dose: Not Given Fluconazole (Diflucan) 200 mg PO 2100 [facility] Last Admin: 07/31/18 20:34 Dose: 200 mg Loperamide HCl (Imodium) 4 mg PO QID [facility] Last Admin: 08/01/18 13:32 Dose: 4 mg Metoclopramide HCl (Reglan) 5 mg IVP Q6H PRN PRN Reason: nausea Last Admin: 07/31/18 15:55 Dose: 5 mg Ondansetron HCl (Zofran Odt) 8 mg PO Q6HR [facility] Last Admin: 08/01/18 11:07 Dose: 8 mg Opium Tincture (Opium Tincture 10%) 0.6 ml PO TID [facility] Last Admin: 08/01/18 09:41 Dose: 0.6 ml Tramadol HCl (Ultram) 50 mg PO Q6H PRN PRN Reason: Moderate Pain (4-6) Last Admin: 07/30/18 19:27 Dose: 50 mg Tramadol HCl (Ultram) 100 mg PO Q6H PRN PRN Reason: Severe Pain (7-10) Last Admin: 08/01/18 11:06 Dose: 100 mg Trazodone HCl (Desyrel) 50 mg PO HSPRN PRN PRN Reason: Insomnia
[2018-08-01] MEDS ORDERED: Promethazine HCl 25 MG SUPP PR PRN (15:52)
--- NOTE | 2018-08-01 16:01 | PDOC.GSPN ---
Surgery Progress Note: Subj - Subjective Narrative: Was doing well over weekend. Now having nausea and vomitted three times. Surgery Progress Note: Obj - Vital signs Vital signs: Vital Signs - Most Recent Temp Pulse Resp BP Pulse Ox 98.1 F 79 16 124/69 94 L 08/01/18 08:06 08/01/18 08:06 08/01/18 08:06 08/01/18 08:06 08/01/18 08:06 - Physical Exam General: no distress Respiratory: clear to auscultation Abdomen: soft, non tender, nondistended Surgery Progress Note: Results - Labs Result Diagrams: 07/29/18 06:05 08/01/18 04:19 Lab results: Laboratory Results - last 24 hr 08/01/18 04:19 Sodium 134 L Potassium 3.0 L Chloride 101 Carbon Dioxide 24 Anion Gap 12 BUN 4 L Creatinine 1.21 H Estimated GFR (MDRD) 46 Glucose 75 Calcium 8.0 Surgery Progress Note: A/P - Problem (1) Mild dehydration Current Visit: No Code(s): E86.0 - DEHYDRATION Status: Acute (2) Intra-abdominal abscess Current Visit: No Code(s): K65.1 - PERITONEAL ABSCESS Status: Chronic - Plan Plan: More nausea/vomitting -lower dose of tincture of opium if symptoms persist
[2018-08-01] MEDS: Promethazine HCl 25 MG/ML VIAL IM PRN (16:25)
[2018-08-01] MEDS: D5 1/2 NS w/20 mEq KCL 1,000 ML IV SCH (18:18)
[2018-08-01] MEDS: Fluconazole 100 MG TAB PO SCH (21:41)
[2018-08-02] MEDS: Ondansetron ODT 8 MG TAB PO SCH ×5 (01:00→23:49)
[2018-08-02] MEDS: Promethazine HCl 25 MG/ML VIAL IM PRN ×2 (04:45→09:41)
[2018-08-02] MEDS: D5 1/2 NS w/20 mEq KCL 1,000 ML IV SCH ×3 (04:48→23:50)
[2018-08-02 08:04] LABS: Anion Gap 11 mmol/L (10-20); BUN (Urea Nitrogen) Less than 4 mg/dL (9.8-20.1); Calc. Creatinine Clearance 36 mL/min (70-130); Calcium 7.8 mg/dL (7.8-10.44); Carbon Dioxide 24 mmol/L (22-29); Chloride 100 mmol/L (98-107); Estimated GFR-MDRD 45; Glucose 82 mg/dL (70-105); Potassium 3.5 mmol/L (3.5-5.1); Sodium 131 mmol/L (136-145)
[2018-08-02] MEDS: Loperamide HCl 2 MG CAP PO SCH ×4 (09:38→22:17)
[2018-08-02] MEDS: Escitalopram Oxalate 20 mg Tablet PO SCH (09:38)
[2018-08-02] MEDS: Opium Tincture 10% (1ml Charge) PO SCH ×3 (09:38→22:18)
--- NOTE | 2018-08-02 12:17 | PDOC.PN ---
- Subjective Encounter Start Date: 08/02/18 Encounter Start Time: 12:00 Subjective: c/o nausea and unable to keep food down -: no abd pain, is amb in hallway - Objective Resuscitation Status - Order Detail: 07/26/18 17:44 Resuscitation Status Routine Resuscitation Status: FULL: Full Resuscitation MAR Reviewed: Yes Vital Signs & Weight: Vital Signs (12 hours) Temp Pulse Resp BP Pulse Ox 08/02/18 08:01 97.8 F 79 16 121/70 92 L 08/02/18 08:00 92 L Weight Admit Weight 97 lb 1 oz Weight 97 lb 1 oz I&O: 08/01/18 08/02/18 08/03/18 06:59 06:59 06:59 Intake Total 2620 2600 Output Total 700 930 Balance 1920 1670 Result Diagrams: 07/29/18 06:05 08/02/18 07:09 Phys Exam - Physical Examination HEENT: PERRLA, moist MMs Neck: no JVD, supple Respiratory: no wheezing, no rales Cardiovascular: RRR, no significant murmur Gastrointestinal: soft, non-tender, positive bowel sounds wound vac+, ileostomy has liq stool Musculoskeletal: no edema, pulses present Neurological: non-focal, moves all 4 limbs Psychiatric: normal affect, A&O x 3 Dx/Plan (1) Nausea & vomiting Code(s): R11.2 - NAUSEA WITH VOMITING, UNSPECIFIED Status: Acute Qualifiers: Vomiting type: unspecified Vomiting Intractability: intractable Qualified Code(s): R11.2 - Nausea with vomiting, unspecified (2) Severe dehydration Code(s): E86.0 - DEHYDRATION Status: Resolved (3) Hyponatremia Code(s): E87.1 - HYPO-OSMOLALITY AND HYPONATREMIA Status: Resolved (4) RUT (acute kidney injury) Code(s): N17.9 - ACUTE KIDNEY FAILURE, UNSPECIFIED Status: Resolved (5) Metabolic acidosis Code(s): E87.2 - ACIDOSIS Status: Resolved (6) Intra-abdominal abscess Code(s): K65.1 - PERITONEAL ABSCESS Status: Chronic (7) Crohn's disease Code(s): K50.90 - CROHN'S DISEASE, UNSPECIFIED, WITHOUT COMPLICATIONS Status: Chronic Qualifiers: Gastrointestinal tract location: small and large intestine Comment: h/o ileocecectomy for stricture and adenocarcinoma- completely removed with clear margins (8) Depression Code(s): F32.9 - MAJOR DEPRESSIVE DISORDER, SINGLE EPISODE, UNSPECIFIED Status : Chronic Qualifiers: Depression Type: major depressive disorder Active/Remission status: in full remission (9) GERD (gastroesophageal reflux disease) Code(s): K21.9 - GASTRO-ESOPHAGEAL REFLUX DISEASE WITHOUT ESOPHAGITIS Status: Chronic Qualifiers: Esophagitis presence: esophagitis presence not specified Qualified Code(s) : K21.9 - Gastro-esophageal reflux disease without esophagitis - Plan will start her back on reglan tid instead of prn -: is on tincture of opium and loperamide -: electrolytes are stable -: has low albumin, d/w patient about protein intake for wound healing -: dietary consultation for high output ileostomy * . Review of Systems - Medications/Allergies Allergies/Adverse Reactions: Allergies Allergy/AdvReac Type Severity Reaction Status Date / Time ciprofloxacin [From Cipro] Allergy Verified 07/15/18 23:27 hydrocodone AdvReac Verified 07/17/18 21:52 Medications: Current Medications Acetaminophen (Tylenol) 1,000 mg PO Q6H PRN PRN Reason: Mild Pain (1-3) Albuterol/Ipratropium (Duoneb) 3 ml NEB [id number] PRN PRN Reason: SOB &/or Wheezing Escitalopram Oxalate (Lexapro) 20 mg PO DAILY [facility] Last Admin: 08/02/18 09:38 Dose: Not Given Fluconazole (Diflucan) 200 mg PO 2100 [facility] Last Admin: 08/01/18 21:41 Dose: 200 mg Potassium Chloride/Dextrose/Sod Cl (D5 1/2 Ns W/20 Meq Kcl) 1,000 mls @ 100 mls /hr IV .Q10H [facility] Last Admin: 08/02/18 04:48 Dose: 1,000 mls Loperamide HCl (Imodium) 4 mg PO QID [facility] Last Admin: 08/02/18 09:38 Dose: 4 mg Metoclopramide HCl (Reglan) 5 mg IVP Q6H PRN PRN Reason: nausea Last Admin: 07/31/18 15:55 Dose: 5 mg Ondansetron HCl (Zofran Odt) 8 mg PO Q6HR [facility] Last Admin: 08/02/18 06:34 Dose: 8 mg Opium Tincture (Opium Tincture 10%) 0.6 ml PO TID [facility] Last Admin: 08/02/18 09:38 Dose: 0.6 ml Promethazine HCl (Phenergan) 12.5 mg IM Q4H PRN PRN Reason: Nausea/Vomiting Last Admin: 08/02/18 09:41 Dose: 12.5 mg Promethazine HCl (Phenergan Suppository) 25 mg UT Q6H PRN PRN Reason: Nausea/Vomiting Promethazine HCl (Phenergan) 12.5 mg SLOW IVP Q4H PRN PRN Reason: Nausea Sodium Chloride (Flush - Normal Saline) 10 ml IVF Q12HR [facility] Last Admin: 08/02/18 09:39 Dose: Not Given Sodium Chloride (Flush - Normal Saline) 10 ml IVF PRN PRN PRN Reason: Saline Flush Tramadol HCl (Ultram) 50 mg PO Q6H PRN PRN Reason: Moderate Pain (4-6) Last Admin: 07/30/18 19:27 Dose: 50 mg Tramadol HCl (Ultram) 100 mg PO Q6H PRN PRN Reason: Severe Pain (7-10) Last Admin: 08/01/18 11:06 Dose: 100 mg Trazodone HCl (Desyrel) 50 mg PO HSPRN PRN PRN Reason: Insomnia
[2018-08-02] MEDS: Promethazine HCl 25 MG/ML VIAL SLOW IVP PRN ×2 (15:02→22:21)
[2018-08-02] MEDS: traMADol HCl 50 MG TAB PO PRN (22:16)
[2018-08-02] MEDS: Famotidine 20 MG TAB PO SCH (22:16)
[2018-08-02] MEDS: Fluconazole 100 MG TAB PO SCH (22:17)
[2018-08-03] MEDS: Ondansetron ODT 8 MG TAB PO SCH ×3 (05:27→17:46)
[2018-08-03 08:30] LABS: Anion Gap 9 mmol/L (10-20); BUN (Urea Nitrogen) Less than 4 mg/dL (9.8-20.1); Calc. Creatinine Clearance 36 mL/min (70-130); Calcium 7.6 mg/dL (7.8-10.44); Carbon Dioxide 26 mmol/L (22-29); Chloride 103 mmol/L (98-107); Estimated GFR-MDRD 46; Glucose 93 mg/dL (70-105); Potassium 3.7 mmol/L (3.5-5.1); Sodium 134 mmol/L (136-145)
--- NOTE | 2018-08-03 08:39 | CT ---
CT HEAD NONCONTRAST: INDICATIONS: Fall. Head injury. FINDINGS: There is no acute intracranial hemorrhage, mass effect, or midline shift. The calvarium is intact. No pneumocephalus. There is a right frontal scalp hematoma. IMPRESSION: No acute intracranial hemorrhage or mass effect. POS: AN[facility]
[2018-08-03] MEDS: Loperamide HCl 2 MG CAP PO SCH ×4 (09:41→21:15)
[2018-08-03] MEDS: Escitalopram Oxalate 20 mg Tablet PO SCH (09:41)
[2018-08-03] MEDS: Opium Tincture 10% (1ml Charge) PO SCH (09:41)
[2018-08-03] MEDS: traMADol HCl 50 MG TAB PO PRN (09:48)
[2018-08-03] MEDS: Promethazine HCl 25 MG/ML VIAL IM PRN (09:49)
[2018-08-03] MEDS: D5 1/2 NS w/20 mEq KCL 1,000 ML IV SCH ×2 (09:51→21:32)
--- NOTE | 2018-08-03 12:53 | PDOC.PN ---
- Subjective Encounter Start Date: 08/03/18 Encounter Start Time: 08:45 Subjective: fell this am and hit her right forehead -: is moving all extremities with normal strength -: still nauseous and is scared to eat - Objective Resuscitation Status - Order Detail: 07/26/18 17:44 Resuscitation Status Routine Resuscitation Status: FULL: Full Resuscitation MAR Reviewed: Yes Vital Signs & Weight: Vital Signs (12 hours) Temp Pulse Resp BP Pulse Ox 08/03/18 08:21 98.0 F 80 16 127/76 91 L Weight Admit Weight 97 lb 1 oz Weight 97 lb 1 oz I&O: 08/02/18 08/03/18 08/04/18 06:59 06:59 06:59 Intake Total 1300 2230 Output Total 930 1030 Balance 370 1200 Result Diagrams: 07/29/18 06:05 08/03/18 07:49 Phys Exam - Physical Examination HEENT: PERRLA, moist MMs right forehead contusion+, no crepitus Neck: no JVD, supple Respiratory: no wheezing, no rales Cardiovascular: RRR, no significant murmur Gastrointestinal: soft, non-tender, no distention, positive bowel sounds ileostomy has liq stools, wound vac+ Musculoskeletal: no edema, pulses present Neurological: non-focal, moves all 4 limbs Psychiatric: normal affect, A&O x 3 Dx/Plan (1) Nausea & vomiting Code(s): R11.2 - NAUSEA WITH VOMITING, UNSPECIFIED Status: Acute Qualifiers: Vomiting type: unspecified Vomiting Intractability: intractable Qualified Code(s): R11.2 - Nausea with vomiting, unspecified (2) Severe dehydration Code(s): E86.0 - DEHYDRATION Status: Resolved (3) Hyponatremia Code(s): E87.1 - HYPO-OSMOLALITY AND HYPONATREMIA Status: Resolved (4) RUT (acute kidney injury) Code(s): N17.9 - ACUTE KIDNEY FAILURE, UNSPECIFIED Status: Resolved (5) Metabolic acidosis Code(s): E87.2 - ACIDOSIS Status: Resolved (6) Intra-abdominal abscess Code(s): K65.1 - PERITONEAL ABSCESS Status: Chronic (7) Crohn's disease Code(s): K50.90 - CROHN'S DISEASE, UNSPECIFIED, WITHOUT COMPLICATIONS Status: Chronic Qualifiers: Gastrointestinal tract location: small and large intestine Comment: h/o ileocecectomy for stricture and adenocarcinoma- completely removed with clear margins (8) Depression Code(s): F32.9 - MAJOR DEPRESSIVE DISORDER, SINGLE EPISODE, UNSPECIFIED Status : Chronic Qualifiers: Depression Type: major depressive disorder Active/Remission status: in full remission (9) GERD (gastroesophageal reflux disease) Code(s): K21.9 - GASTRO-ESOPHAGEAL REFLUX DISEASE WITHOUT ESOPHAGITIS Status: Chronic Qualifiers: Esophagitis presence: esophagitis presence not specified Qualified Code(s) : K21.9 - Gastro-esophageal reflux disease without esophagitis - Plan reglan scheduled dosing today, phenergan prn -: continue loperamide, tincture of opium -: is not eating much -: on fluconazole sec to prior line infection -: d/w case mgmt if she is a ltac candidate? * . Plan is for reversal of ileostomy in 2 months. Review of Systems - Medications/Allergies Allergies/Adverse Reactions: Allergies Allergy/AdvReac Type Severity Reaction Status Date / Time ciprofloxacin [From Cipro] Allergy Verified 07/15/18 23:27 hydrocodone AdvReac Verified 07/17/18 21:52 Medications: Current Medications Acetaminophen (Tylenol) 1,000 mg PO Q6H PRN PRN Reason: Mild Pain (1-3) Albuterol/Ipratropium (Duoneb) 3 ml NEB [id number] PRN PRN Reason: SOB &/or Wheezing Escitalopram Oxalate (Lexapro) 20 mg PO DAILY [facility] Last Admin: 08/03/18 09:41 Dose: Not Given Famotidine (Pepcid) 20 mg PO 2100 [facility] Last Admin: 08/02/18 22:16 Dose: 20 mg Fluconazole (Diflucan) 200 mg PO 2100 [facility] Last Admin: 08/02/18 22:17 Dose: 200 mg Potassium Chloride/Dextrose/Sod Cl (D5 1/2 Ns W/20 Meq Kcl) 1,000 mls @ 100 mls /hr IV .Q10H [facility] Last Admin: 08/03/18 09:51 Dose: 1,000 mls Loperamide HCl (Imodium) 4 mg PO QID [facility] Last Admin: 08/03/18 09:41 Dose: 4 mg Metoclopramide HCl (Reglan) 5 mg IVP Q6H PRN PRN Reason: nausea Last Admin: 07/31/18 15:55 Dose: 5 mg Ondansetron HCl (Zofran Odt) 8 mg PO Q6HR [facility] Last Admin: 08/03/18 05:27 Dose: 8 mg Opium Tincture (Opium Tincture 10%) 0.6 ml PO TID [facility] Last Admin: 08/03/18 09:41 Dose: 0.6 ml Promethazine HCl (Phenergan) 12.5 mg IM Q4H PRN PRN Reason: Nausea/Vomiting Last Admin: 08/03/18 09:49 Dose: 12.5 mg Promethazine HCl (Phenergan Suppository) 25 mg MD Q6H PRN PRN Reason: Nausea/Vomiting Promethazine HCl (Phenergan) 12.5 mg SLOW IVP Q4H PRN PRN Reason: Nausea Last Admin: 08/02/18 22:21 Dose: 12.5 mg Sodium Chloride (Flush - Normal Saline) 10 ml IVF Q12HR [facility] Last Admin: 08/03/18 09:42 Dose: 10 ml Sodium Chloride (Flush - Normal Saline) 10 ml IVF PRN PRN PRN Reason: Saline Flush Tramadol HCl (Ultram) 50 mg PO Q6H PRN PRN Reason: Moderate Pain (4-6) Last Admin: 07/30/18 19:27 Dose: 50 mg Tramadol HCl (Ultram) 100 mg PO Q6H PRN PRN Reason: Severe Pain (7-10) Last Admin: 08/03/18 09:48 Dose: 100 mg Trazodone HCl (Desyrel) 50 mg PO HSPRN PRN PRN Reason: Insomnia
[2018-08-03] MEDS ORDERED: Metoclopramide HCl 10 MG/2 ML VIAL IVP SCH (13:00)
--- NOTE | 2018-08-03 14:24 | PRG ---
DATE OF SERVICE: 08/03/2018 SUBJECTIVE: Ms. Kwan had more significant nausea, vomiting overnight. She actually fell this morning. She is complaining of dizziness. OBJECTIVE: VITAL SIGNS: She is afebrile. Vital signs are stable. ABDOMEN: Soft, nontender. Her ostomy output is liquidy, but there is some more solid material in it now. Her midline wound has the VAC in place. There is no surrounding erythema. LABORATORY DATA: Her CT of her head was normal. ASSESSMENT: High-output ileostomy; had tried tincture of opium likely causing her nausea, vomiting. PLAN: To stop that and see how she does just on the Imodium for now. Job ID: [id number]
[2018-08-03] MEDS: Metoclopramide HCl 10 MG/2 ML VIAL IVP SCH (17:45)
[2018-08-03] MEDS: Fluconazole 100 MG TAB PO SCH (21:15)
[2018-08-03] MEDS: Famotidine 20 MG TAB PO SCH (21:16)
[2018-08-04] MEDS: Ondansetron ODT 8 MG TAB PO SCH ×5 (00:50→23:53)
[2018-08-04] MEDS: Metoclopramide HCl 10 MG/2 ML VIAL IVP SCH ×6 (00:50→23:54)
[2018-08-04 07:18] LABS: Anion Gap 13 mmol/L (10-20); BUN (Urea Nitrogen) Less than 4 mg/dL (9.8-20.1); Calc. Creatinine Clearance 37 mL/min (70-130); Calcium 7.4 mg/dL (7.8-10.44); Carbon Dioxide 22 mmol/L (22-29); Chloride 101 mmol/L (98-107); Estimated GFR-MDRD 46; Glucose 83 mg/dL (70-105); Potassium 3.7 mmol/L (3.5-5.1); Sodium 132 mmol/L (136-145)
[2018-08-04] MEDS: D5 1/2 NS w/20 mEq KCL 1,000 ML IV SCH ×2 (08:40→16:59)
[2018-08-04] MEDS: Escitalopram Oxalate 20 mg Tablet PO SCH (08:41)
[2018-08-04] MEDS: Loperamide HCl 2 MG CAP PO SCH ×4 (08:41→20:01)
--- NOTE | 2018-08-04 14:43 | PDOC.GSPN ---
Surgery Progress Note: Subj - Subjective Narrative: Her nausea is much improved. Still not eating much Surgery Progress Note: Obj - Vital signs Vital signs: Vital Signs - Most Recent Temp Pulse Resp BP Pulse Ox 98 F 88 18 111/67 92 L 08/04/18 08:00 08/04/18 08:00 08/04/18 08:00 08/04/18 08:00 08/04/18 08:00 - Physical Exam General: no distress Cardiovascular: regular rate and rhythm Respiratory: clear to auscultation Abdomen: soft, non tender Surgery Progress Note: Results - Labs Result Diagrams: 07/29/18 06:05 08/04/18 06:04 Lab results: Laboratory Results - last 24 hr 08/04/18 06:04 Sodium 132 L Potassium 3.7 Chloride 101 Carbon Dioxide 22 Anion Gap 13 BUN Less than 4 L Creatinine 1.21 H Estimated GFR (MDRD) 46 Glucose 83 Calcium 7.4 L Surgery Progress Note: A/P - Problem (1) Mild dehydration Current Visit: No Code(s): E86.0 - DEHYDRATION Status: Acute (2) Intra-abdominal abscess Current Visit: No Code(s): K65.1 - PERITONEAL ABSCESS Status: Chronic - Plan Plan: Push more PO now that tincture opium stopped and nausea improved -continue to encourage PO -Home next few days if taking more PO -If not then push for [facility] again
--- NOTE | 2018-08-04 16:38 | PDOC.PN ---
- Subjective Encounter Start Date: 08/04/18 Encounter Start Time: 11:15 Subjective: pt up in bed still not eating much. however her nausea has subsided - Objective Resuscitation Status - Order Detail: 07/26/18 17:44 Resuscitation Status Routine Resuscitation Status: FULL: Full Resuscitation Vital Signs & Weight: Vital Signs (12 hours) Temp Pulse Resp BP Pulse Ox 08/04/18 08:00 98 F 88 18 111/67 92 L Weight Admit Weight 97 lb 1 oz Weight 97 lb 1 oz I&O: 08/03/18 08/04/18 08/05/18 06:59 06:59 06:59 Intake Total 2230 3300 Output Total 1030 140 Balance 1200 3160 Result Diagrams: 07/29/18 06:05 08/04/18 06:04 Phys Exam - Physical Examination Respiratory: no wheezing, no rales, no rhonchi, wheezing present, clear to auscultation bilateral Cardiovascular: RRR, no significant murmur, no rub, gallop, irregular Gastrointestinal: soft, non-tender, no distention, positive bowel sounds colostomy and abd wound vac Musculoskeletal: no edema, pulses present, edema present Dx/Plan (1) Nausea & vomiting Code(s): R11.2 - NAUSEA WITH VOMITING, UNSPECIFIED Status: Acute Qualifiers: Vomiting type: unspecified Vomiting Intractability: intractable Qualified Code(s): R11.2 - Nausea with vomiting, unspecified (2) RUT (acute kidney injury) Code(s): N17.9 - ACUTE KIDNEY FAILURE, UNSPECIFIED Status: Resolved (3) Severe dehydration Code(s): E86.0 - DEHYDRATION Status: Resolved (4) Abnormal liver enzymes Code(s): R74.8 - ABNORMAL LEVELS OF OTHER SERUM ENZYMES Status: Acute - Plan tincture opium stopped pt's nausea has improved -: she did eat some law today, encouraged to eat more. -: she will need SNF. rut improving. -: pt not on any abx -: continue to monitor wbc * . Review of Systems - Review of Systems Cardiovascular: negative: chest pain, palpitations, orthopnea, paroxysmal nocturnal dyspnea, edema, light headedness, other Gastrointestinal: negative: Nausea, Vomiting, Abdominal Pain, Diarrhea, Constipation, Melena, Hematochezia, Other Genitourinary: negative: Dysuria, Frequency, Incontinence, Hematuria, Retention , Other - Medications/Allergies Allergies/Adverse Reactions: Allergies Allergy/AdvReac Type Severity Reaction Status Date / Time ciprofloxacin [From Cipro] Allergy Verified 07/15/18 23:27 hydrocodone AdvReac Verified 07/17/18 21:52 Medications: Current Medications Acetaminophen (Tylenol) 1,000 mg PO Q6H PRN PRN Reason: Mild Pain (1-3) Albuterol/Ipratropium (Duoneb) 3 ml NEB [id number] PRN PRN Reason: SOB &/or Wheezing Escitalopram Oxalate (Lexapro) 20 mg PO DAILY [facility] Last Admin: 08/04/18 08:41 Dose: Not Given Famotidine (Pepcid) 20 mg PO 2099 [facility] Last Admin: 08/03/18 21:16 Dose: 20 mg Fluconazole (Diflucan) 200 mg PO 2100 [facility] Last Admin: 08/03/18 21:15 Dose: 200 mg Potassium Chloride/Dextrose/Sod Cl (D5 1/2 Ns W/20 Meq Kcl) 1,000 mls @ 100 mls /hr IV .Q10H [facility] Last Admin: 08/04/18 08:40 Dose: 1,000 mls Loperamide HCl (Imodium) 4 mg PO QID [facility] Last Admin: 08/04/18 11:53 Dose: 4 mg Metoclopramide HCl (Reglan) 5 mg IVP Q6HR [facility] Last Admin: 08/04/18 15:07 Dose: 5 mg Ondansetron HCl (Zofran Odt) 8 mg PO Q6HR [facility] Last Admin: 08/04/18 11:52 Dose: 8 mg Promethazine HCl (Phenergan) 12.5 mg IM Q4H PRN PRN Reason: Nausea/Vomiting Last Admin: 08/03/18 09:49 Dose: 12.5 mg Promethazine HCl (Phenergan Suppository) 25 mg [place] Q6H PRN PRN Reason: Nausea/Vomiting Promethazine HCl (Phenergan) 12.5 mg SLOW IVP Q4H PRN PRN Reason: Nausea Last Admin: 08/02/18 22:21 Dose: 12.5 mg Sodium Chloride (Flush - Normal Saline) 10 ml IVF Q12HR [facility] Last Admin: 08/04/18 08:41 Dose: Not Given Sodium Chloride (Flush - Normal Saline) 10 ml IVF PRN PRN PRN Reason: Saline Flush Tramadol HCl (Ultram) 50 mg PO Q6H PRN PRN Reason: Moderate Pain (4-6) Last Admin: 07/30/18 19:27 Dose: 50 mg Tramadol HCl (Ultram) 100 mg PO Q6H PRN PRN Reason: Severe Pain (7-10) Last Admin: 08/03/18 09:48 Dose: 100 mg Trazodone HCl (Desyrel) 50 mg PO HSPRN PRN PRN Reason: Insomnia
[2018-08-04] MEDS: Famotidine 20 MG TAB PO SCH (20:02)
[2018-08-04] MEDS: Fluconazole 100 MG TAB PO SCH (20:02)
[2018-08-05] MEDS: D5 1/2 NS w/20 mEq KCL 1,000 ML IV SCH ×2 (04:29→14:01)
[2018-08-05] MEDS: Metoclopramide HCl 10 MG/2 ML VIAL IVP SCH ×3 (05:43→17:57)
[2018-08-05] MEDS: Ondansetron ODT 8 MG TAB PO SCH ×3 (05:44→17:57)
[2018-08-05] MEDS: Escitalopram Oxalate 20 mg Tablet PO SCH (08:57)
[2018-08-05] MEDS: Loperamide HCl 2 MG CAP PO SCH ×4 (08:58→20:37)
[2018-08-05 09:06] LABS: Anion Gap 13 mmol/L (10-20); BUN (Urea Nitrogen) 4 mg/dL (9.8-20.1); Calc. Creatinine Clearance 39 mL/min (70-130); Calcium 7.8 mg/dL (7.8-10.44); Carbon Dioxide 23 mmol/L (22-29); Chloride 100 mmol/L (98-107); Estimated GFR-MDRD 49; Glucose 95 mg/dL (70-105); Potassium 4.2 mmol/L (3.5-5.1); Sodium 132 mmol/L (136-145)
[2018-08-05] MEDS: traMADol HCl 50 MG TAB PO PRN (11:47)
--- NOTE | 2018-08-05 14:05 | PDOC.GSPN ---
Surgery Progress Note: Subj - Subjective Patient reports: no new complaints Narrative: No solid food by mouth yet today. No desire to eat Surgery Progress Note: Obj - Vital signs Vital signs: Vital Signs - Most Recent Temp Pulse Resp BP Pulse Ox 98.0 F 74 18 128/81 94 L 08/05/18 07:29 08/05/18 07:29 08/05/18 07:29 08/05/18 07:29 08/05/18 09:00 - Physical Exam General: no distress Cardiovascular: regular rate and rhythm Respiratory: clear to auscultation Wound: healing well, ostomy/colostomy (mucosa pink, liquid stool in bag) Surgery Progress Note: Results - Labs Result Diagrams: 07/29/18 06:05 08/05/18 08:31 Lab results: Laboratory Results - last 24 hr 08/05/18 08:31 Sodium 132 L Potassium 4.2 Chloride 100 Carbon Dioxide 23 Anion Gap 13 BUN 4 L Creatinine 1.16 H Estimated GFR (MDRD) 49 Glucose 95 Calcium 7.8 Surgery Progress Note: A/P - Problem (1) Mild dehydration Current Visit: No Code(s): E86.0 - DEHYDRATION Status: Acute (2) Intra-abdominal abscess Current Visit: No Code(s): K65.1 - PERITONEAL ABSCESS Status: Chronic - Plan Plan: Will discuss with dr. Cespedes -I think she needs PEG and bolus feeds to facilitate her recovery. She has no appetite and not meeting her caloric needs. -As long as she continues to drink liquids only, her ostomy output will remain liquid.
[2018-08-05] MEDS ORDERED: Lactated Ringer's 1,000 ML IV SCH (15:30)
--- NOTE | 2018-08-05 15:38 | PDOC.PN ---
- Subjective Encounter Start Date: 08/05/18 Encounter Start Time: 15:36 Subjective: Still having nausea and vomiting especially on trying to eat. -: still having high output from the ileostomy -: no fever. - Objective Resuscitation Status - Order Detail: 07/26/18 17:44 Resuscitation Status Routine Resuscitation Status: FULL: Full Resuscitation Vital Signs & Weight: Vital Signs (12 hours) Temp Pulse Resp BP Pulse Ox 08/05/18 09:00 94 L 08/05/18 07:29 98.0 F 74 18 128/81 94 L Weight Admit Weight 97 lb 1 oz Weight 97 lb 1 oz I&O: 08/04/18 08/05/18 08/06/18 06:59 06:59 06:59 Intake Total 3300 4200 Output Total 140 2100 Balance 3160 2100 Result Diagrams: 07/29/18 06:05 08/05/18 08:31 Phys Exam - Physical Examination HEENT: PERRLA, moist MMs Neck: no JVD, supple Respiratory: no wheezing, no rales, no rhonchi Cardiovascular: RRR, no significant murmur Gastrointestinal: soft ileostomy noted Musculoskeletal: no edema, pulses present Neurological: non-focal, moves all 4 limbs Psychiatric: normal affect, A&O x 3 Dx/Plan (1) Nausea & vomiting Code(s): R11.2 - NAUSEA WITH VOMITING, UNSPECIFIED Status: Acute Qualifiers: Vomiting type: unspecified Vomiting Intractability: intractable Qualified Code(s): R11.2 - Nausea with vomiting, unspecified (2) RUT (acute kidney injury) Code(s): N17.9 - ACUTE KIDNEY FAILURE, UNSPECIFIED Status: Resolved (3) Hyponatremia Code(s): E87.1 - HYPO-OSMOLALITY AND HYPONATREMIA Status: Resolved (4) Metabolic acidosis Code(s): E87.2 - ACIDOSIS Status: Resolved (5) Severe dehydration Code(s): E86.0 - DEHYDRATION Status: Resolved (6) Abnormal liver enzymes Code(s): R74.8 - ABNORMAL LEVELS OF OTHER SERUM ENZYMES Status: Acute (7) S/P ileostomy Code(s): Z93.2 - ILEOSTOMY STATUS Status: Acute Comment: As per surgery/ PCP. (8) Thrombocytosis Status: Acute (9) Crohn's disease Code(s): K50.90 - CROHN'S DISEASE, UNSPECIFIED, WITHOUT COMPLICATIONS Status: Chronic Qualifiers: Gastrointestinal tract location: small and large intestine Comment: h/o ileocecectomy for stricture and adenocarcinoma- completely removed with clear margins (10) GERD (gastroesophageal reflux disease) Code(s): K21.9 - GASTRO-ESOPHAGEAL REFLUX DISEASE WITHOUT ESOPHAGITIS Status: Chronic Qualifiers: Esophagitis presence: esophagitis presence not specified Qualified Code(s) : K21.9 - Gastro-esophageal reflux disease without esophagitis - Plan substitute D5 + 1/2 NS + KCL with D5 LR. increase rate to 125 due to -: persistent high output from ileostomy -: Will consider parenteral nutrition in the next day or 2 if oral intake is -: still poor and surgery not keen on PEG. -: Wound care to continue. recheck CBC, Mag and BMP in the am. * .
[2018-08-05] MEDS: Dextrose 5%-Lactated Ringers 1,000 ML IV SCH ×2 (16:33→20:40)
[2018-08-05] MEDS ORDERED: Cosyntropin 250 MCG VIAL SLOW IVP SCH (17:00)
[2018-08-05] MEDS: Fluconazole 100 MG TAB PO SCH (20:37)
[2018-08-05] MEDS: Famotidine 20 MG TAB PO SCH (20:37)
[2018-08-05] MEDS: Mirtazapine 15 MG TAB PO SCH (20:38)
--- NOTE | 2018-08-05 22:15 | CON ---
DATE OF CONSULTATION: 08/05/2018 REASON FOR CONSULT: Anorexia, not eating. HISTORY OF PRESENT ILLNESS: Ms. rBigida lee is a pleasant 52-year-old female with long history of Crohn's disease. Prior to seeing me, she was on steroids and 5-ASA drugs, quite rapidly transitioned to Humira. She actually had to be treated first for positive TB skin test prophylactically, which was accomplished with Dr. Martinez has helped. She always had copious problems with diarrhea, but once we got her on Humira pretty good dose, this improved markedly, however, she continued to smoke. She underwent a colonoscopy back on 04/08/2018 and was found to have a followup of her Crohn's. She has had an ileal stricture which we had seen in the past. Previous biopsy showed some low-grade dysplasia in that area, but those biopsy showed high-grade dysplasia. Subsequent removal on June 16, 2018, showed differentiated and well-differentiated adenocarcinoma of 4 mm focus arising in a background of tubulovillous adenoma with high-grade dysplasia. Surgical resections were negative without any invasion in all 28 nodes were negative for disease was a T1 N0 lesion. Since that she socially has not done very well. She was a heavy smoker and has significant emphysema, intermittently will be on steroids for that and had been on steroids quite a bit in the distant past for Crohn's with that had not been the case for several years. In any event, she had a wound dehiscence from microsurgery in late June for washout and resection of previous ileocolonic anastomosis with end ileostomy. This discharge was on July 05, which suggest she had a rehab facility, but she did not. She was going to be discharged on 07/05, but was not. She did finally go home on 07/09, however, she was readmitted on 07/[address] showing a small left-sided perineal abscess, which was drained by Radiology, has been in the hospital since that time. Presently, she shits about 100 mL out of her ostomy every hour, her records at least feels it is coming out. She is not really eating much. If she eats, her mouth feels like she just cannot swallow food. She gets nauseous seeing food or smelling food. She has had no fever or chills, weight is down from 140 on July 01 and 97 pounds now. She just continued to urinate without difficulty and she has recorded about 500 mL of stool per day. 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 Wound dehiscence after ileocecectomy, treated with resection and diverting ileostomy. Prior history of positive PPD treated prophylactically with anti-TB medications. PAST SURGICAL HISTORY: Cholecystectomy, ileostomy, and previous D and C. MEDICATIONS: At home; 1. Lomotil. 2. Lexapro. 3. [place]. 4. Zofran. 5. Protonix. 6. Potassium. 7. Tramadol. 8. Trazodone. ALLERGIES: CIPROFLOXACIN. REVIEW OF SYSTEMS: Negative for dysphagia, odynophagia, cough, shortness of breath, chest pain, abdominal pain, melena, hematochezia, hematemesis, dysuria, frequency, or urgency. She does feel a bit depressed since all these have been going on. SOCIAL HISTORY: Negative for all drugs. She is a previous smoker. FAMILY HISTORY: Noncontributory. PRESENT MEDICATIONS: 1. Tylenol p.r.n. 2. D5 of 125 an hour. 3. Pepcid. 4. Diflucan. 5. Loperamide. 6. Reglan. 7. Zofran. 8. Phenergan. 9. Trazodone. ASSESSMENT: Anorexia and weight loss with failure to thrive and poor p.o. intake. This could be related to her inflammatory condition from postop complications, could be related to her Crohn's disease, although there has been no signs of active Crohn's in her imaging thus far, could be related to adrenal insufficiency and it could be related to her multiple medications and antibiotics. In the event, I agree she is not progressing. She has failure to thrive at this time. RECOMMENDATIONS: We will go and check inflammatory markers, magnesium, phosphorus, all electrolytes, pre-albumin, and a CBC tomorrow. We will go and check a Cortrosyn stimulation test. We will start her on mirtazapine to see if this helps with her appetite. We could also consider some Marinol if needed. Job ID: [id number]
[2018-08-06] MEDS: Ondansetron ODT 8 MG TAB PO SCH ×5 (00:01→23:23)
[2018-08-06] MEDS: Metoclopramide HCl 10 MG/2 ML VIAL IVP SCH ×5 (00:02→23:24)
[2018-08-06] MEDS ORDERED: Cosyntropin 250 MCG VIAL SLOW IVP SCH ×2 (03:30→07:30)
[2018-08-06 07:08] LABS: #Basophils 0.1 thou/uL (0.0-0.2); #Eosinphils 0.5 thou/uL (0.0-0.7); #Lymphocytes 3.3 thou/uL (1.20-3.40); #Monocytes 1.4 thou/uL (0.11-0.59); #Neutrophils 7.1 thou/uL (1.40-6.50); %Basophils 0.6 % (0.0-1.0); %Eosinophils 4.2 % (0.0-10.0); %Lymphocytes 26.6 % (21.0-51.0); %Monocytes 11.3 % (0.0-10.0); %Neutrophils 57.4 % (42.0-75.0); Hemoglobin 8.4 g/dL (12.0-16.0); Mean Corpuscular HGB CONC 32.7 g/dL (32.0-36.0); Mean Corpuscular Hemoglobin 30.5 pg (27.0-31.0); Mean Corpuscular Volume 93.1 fL (78.0-98.0); Mean Platelet Volume 6.8 fL (7.4-10.4); Platelet Count 564 thou/uL (130-400); RBC Distribution Width 14.5 % (11.5-14.5); Red Blood Cell (RBC) Count 2.74 mill/uL (4.20-5.40); White Blood Cell (WBC) Count 12.3 thou/uL (4.8-10.8)
[2018-08-06 07:29] LABS: CRP (Inflammatory) 8.76 mg/dL (= or < 0.5); Phosphorus 3.6 mg/dL (2.3-4.7)
[2018-08-06 07:32] LABS: ALT (SGPT) 8 U/L (8-55); AST (SGOT) 18 U/L (5-34); Albumin 2.2 g/dL (3.5-5.0); Alkaline Phosphatase 185 U/L (40-150); Anion Gap 15 mmol/L (10-20); BUN (Urea Nitrogen) Less than 4 mg/dL (9.8-20.1); Bilirubin, Total 0.3 mg/dL (0.2-1.2); Calc. Creatinine Clearance 36 mL/min (70-130); Calcium 7.6 mg/dL (7.8-10.44); Carbon Dioxide 24 mmol/L (22-29); Chloride 99 mmol/L (98-107); Estimated GFR-MDRD 45; Globulin 3.2 g/dL (2.4-3.5); Glucose 90 mg/dL (70-105); Potassium 3.6 mmol/L (3.5-5.1); Protein, Total 5.4 g/dL (6.0-8.3); Sodium 134 mmol/L (136-145)
[2018-08-06 07:36] LABS: Magnesium Less than 0.7 mg/dL (1.6-2.6)
[2018-08-06] MEDS: Dronabinol 2.5 MG CAP PO SCH ×2 (07:43→16:45)
[2018-08-06] MEDS: Dextrose 5%-Lactated Ringers 1,000 ML IV SCH ×4 (07:44→23:24)
[2018-08-06] MEDS: Escitalopram Oxalate 20 mg Tablet PO SCH (07:45)
[2018-08-06] MEDS: Loperamide HCl 2 MG CAP PO SCH ×4 (07:46→21:31)
[2018-08-06 08:03] LABS: Folate (Folic Acid) 5.4 ng/mL (7.0-31.4)
[2018-08-06] MEDS ORDERED: traMADol HCl 50 MG TAB PO PRN (08:38)
[2018-08-06] MEDS ORDERED: Magnesium Sulfate 4 GM in Sodium Chloride 0.9% 250 ML 250 ML IVPB SCH (09:30)
--- NOTE | 2018-08-06 14:42 | PDOC.PN ---
- Subjective Encounter Start Date: 08/06/18 Encounter Start Time: 14:41 Subjective: complains of feeling dry -: Ileostomy output is trending down. she took a little bite of some food. -: No fever - Objective Resuscitation Status - Order Detail: 07/26/18 17:44 Resuscitation Status Routine Resuscitation Status: FULL: Full Resuscitation Vital Signs & Weight: Vital Signs (12 hours) Temp Pulse Resp BP Pulse Ox 08/06/18 11:50 98.7 F 103 H 16 118/69 92 L 08/06/18 07:31 98.4 F 95 18 130/79 92 L Weight Admit Weight 97 lb 1 oz Weight 97 lb 1 oz I&O: 08/05/18 08/06/18 08/07/18 06:59 06:59 06:59 Intake Total 4200 3611 Output Total 2100 2830 Balance 2100 781 Result Diagrams: 08/06/18 06:57 08/06/18 06:57 Phys Exam - Physical Examination thin female in no distress. afebrile HEENT: PERRLA Dry oral mucosa Neck: no JVD, supple, full ROM Respiratory: no wheezing, no rhonchi, clear to auscultation bilateral Cardiovascular: RRR tachycardic Gastrointestinal: soft, no distention, positive bowel sounds Wound vac and ileostomy noted Musculoskeletal: no edema, pulses present Neurological: non-focal, moves all 4 limbs Skin: no rash Deviation from normal: dry Dx/Plan (1) Nausea & vomiting Code(s): R11.2 - NAUSEA WITH VOMITING, UNSPECIFIED Status: Acute Qualifiers: Vomiting type: unspecified Vomiting Intractability: intractable Qualified Code(s): R11.2 - Nausea with vomiting, unspecified (2) RUT (acute kidney injury) Code(s): N17.9 - ACUTE KIDNEY FAILURE, UNSPECIFIED Status: Resolved (3) Hyponatremia Code(s): E87.1 - HYPO-OSMOLALITY AND HYPONATREMIA Status: Resolved (4) Metabolic acidosis Code(s): E87.2 - ACIDOSIS Status: Resolved (5) Severe dehydration Code(s): E86.0 - DEHYDRATION Status: Resolved Comment: moderate given tachycardia (6) Abnormal liver enzymes Code(s): R74.8 - ABNORMAL LEVELS OF OTHER SERUM ENZYMES Status: Acute (7) S/P ileostomy Code(s): Z93.2 - ILEOSTOMY STATUS Status: Acute Comment: As per surgery/ PCP. (8) Thrombocytosis Status: Acute (9) Crohn's disease Code(s): K50.90 - CROHN'S DISEASE, UNSPECIFIED, WITHOUT COMPLICATIONS Status: Chronic Qualifiers: Gastrointestinal tract location: small and large intestine Comment: h/o ileocecectomy for stricture and adenocarcinoma- completely removed with clear margins (10) GERD (gastroesophageal reflux disease) Code(s): K21.9 - GASTRO-ESOPHAGEAL REFLUX DISEASE WITHOUT ESOPHAGITIS Status: Chronic Qualifiers: Esophagitis presence: esophagitis presence not specified Qualified Code(s) : K21.9 - Gastro-esophageal reflux disease without esophagitis (11) Failure to thrive Code(s): [id number] - Status: Acute (12) Protein-calorie malnutrition, moderate Code(s): E44.0 - MODERATE PROTEIN-CALORIE MALNUTRITION Status: Acute (13) Hypomagnesemia Code(s): E83.42 - HYPOMAGNESEMIA Status: Acute - Plan Give a liter bolus of LR and increase maintenance to 200 cc/hr. -: Replete serum magnesium -: Nutritional supplementation via IV or NG tube contemplated if oral intake -: does not improved soonest. * .
[2018-08-06] MEDS ORDERED: Lactated Ringer's 1,000 ML IV SCH (14:45)
[2018-08-06] MEDS: Mirtazapine 15 MG TAB PO SCH (21:30)
[2018-08-06] MEDS: Famotidine 20 MG TAB PO SCH (21:31)
[2018-08-06] MEDS: Acetaminophen 500 MG TAB PO PRN (21:32)
[2018-08-07] MEDS: Ondansetron ODT 8 MG TAB PO SCH ×4 (05:19→23:13)
[2018-08-07] MEDS: Dextrose 5%-Lactated Ringers 1,000 ML IV SCH (05:19)
[2018-08-07] MEDS: Metoclopramide HCl 10 MG/2 ML VIAL IVP SCH ×2 (05:20→12:31)
--- NOTE | 2018-08-07 07:57 | PDOC.PN ---
- Subjective Encounter Start Date: 08/07/18 Encounter Start Time: 07:56 Subjective: seren and examined still with poor appetite - Objective Resuscitation Status - Order Detail: 07/26/18 17:44 Resuscitation Status Routine Resuscitation Status: FULL: Full Resuscitation Vital Signs & Weight: Vital Signs (12 hours) Temp Pulse Resp BP Pulse Ox 08/07/18 03:32 98.1 F 08/07/18 00:59 98.7 F 08/07/18 00:58 98.7 F 08/06/18 20:00 101.1 F H 99 16 154/77 H 94 L Weight Admit Weight 97 lb 1 oz Weight 97 lb 1 oz I&O: 08/06/18 08/07/18 08/08/18 06:59 06:59 06:59 Intake Total 3611 5616 Output Total 2830 4150 Balance 781 1466 Result Diagrams: 08/06/18 06:57 08/06/18 06:57 Phys Exam - Physical Examination Constitutional: NAD HEENT: PERRLA, moist MMs, sclera anicteric, TM's clear Neck: no nodes, no JVD, supple, full ROM Respiratory: no wheezing, no rales, no rhonchi, clear to auscultation bilateral Cardiovascular: RRR, no significant murmur, no rub Gastrointestinal: soft, non-tender, no distention, positive bowel sounds Musculoskeletal: no edema, pulses present Dx/Plan (1) Failure to thrive Code(s): [id number] - Status: Acute (2) Nausea & vomiting Code(s): R11.2 - NAUSEA WITH VOMITING, UNSPECIFIED Status: Acute Qualifiers: Vomiting type: unspecified Vomiting Intractability: intractable Qualified Code(s): R11.2 - Nausea with vomiting, unspecified (3) Protein-calorie malnutrition, moderate Code(s): E44.0 - MODERATE PROTEIN-CALORIE MALNUTRITION Status: Acute (4) RUT (acute kidney injury) Code(s): N17.9 - ACUTE KIDNEY FAILURE, UNSPECIFIED Status: Resolved (5) Hyponatremia Code(s): E87.1 - HYPO-OSMOLALITY AND HYPONATREMIA Status: Resolved (6) Fever Code(s): R50.9 - FEVER, UNSPECIFIED Status: Acute - Plan plan discussed w/ family, PT/OT, social media marketing specialist Febrile work up with blood cultures and urinalysis -: Continue appetite stimulation with marinol * .
[2018-08-07 08:05] LABS: Anion Gap 13 mmol/L (10-20); BUN (Urea Nitrogen) Less than 4 mg/dL (9.8-20.1); Calc. Creatinine Clearance 38 mL/min (70-130); Carbon Dioxide 27 mmol/L (22-29); Chloride 100 mmol/L (98-107); Estimated GFR-MDRD 47; Glucose 139 mg/dL (70-105); Magnesium 1.3 mg/dL (1.6-2.6); Phosphorus 3.2 mg/dL (2.3-4.7); Potassium 3.3 mmol/L (3.5-5.1); Sodium 137 mmol/L (136-145)
[2018-08-07] MEDS: Loperamide HCl 2 MG CAP PO SCH ×2 (08:50→12:31)
[2018-08-07] MEDS: Escitalopram Oxalate 20 mg Tablet PO SCH (08:50)
[2018-08-07] MEDS: Thiamine 100 MG TAB PO SCH (08:50)
[2018-08-07] MEDS: Multivit, Therapeutic 1 TAB PO SCH (08:50)
[2018-08-07] MEDS: Folic Acid 1 MG TAB PO SCH (08:51)
[2018-08-07] MEDS: Promethazine HCl 25 MG/ML VIAL SLOW IVP PRN (08:55)
[2018-08-07] MEDS: Dronabinol 2.5 MG CAP PO SCH ×2 (10:22→16:21)
[2018-08-07] MEDS ORDERED: Potassium Chloride 20 MEQ TAB PO SCH (10:30)
[2018-08-07 10:46] LABS: Bilirubin Negative (Negative); Blood, Urine Negative (Negative); Glucose, Urine (Dipstick) Negative (Negative); Leukocyte Negative (Negative); Nitrite Negative (Negative); Protein, Urine (Dipstick) Negative (Neg-Trace); Urobilinogen 0.2 mg/dL (0.2-1.0)
[2018-08-07 10:49] LABS: Clarity CLEAR (Clear)
[2018-08-07 10:50] LABS: Urine Culture Reflex No No
[2018-08-07 10:51] LABS: Bacteria/HPF None Seen HPF (None Seen); Hyaline Casts/LPF NONE SEEN LPF (0-3 Hyaline); RBC/HPF 0-3 HPF (0-3); Squamous Epithelial 0-3 HPF (0-3); WBC/HPF 0-3 HPF (0-3)
[2018-08-07] MEDS ORDERED: ISOVUE-370 76%-LOCM 1 ML ONE (10:51)
[2018-08-07] MEDS ORDERED: Magnesium 2 GM/NS 0.9% 100 ML 2 GM in Premix Bag 1 BAG IVPB SCH (14:30)
--- NOTE | 2018-08-07 14:44 | PRG ---
DATE OF SERVICE: 08/07/2018 SUBJECTIVE: Ms. Kwan states last night she threw up Gatorade and does not want to eat anymore. She reports she had some fever last night as well. She denies any pain at present. Medications and IV fluids were stopped by hospitalist yesterday. It seems she is on, 1. B.i.d. Pepcid. 2. Marinol twice a day. 3. Folic acid. 4. Loperamide 1 four times a day. 5. Reglan IV q.6. 6. Remeron. 7. Multivitamin. 8. Zofran p.r.n. 9. Potassium chloride orally was discontinued yesterday. 10. Phenergan p.r.n. 11. Thiamine. 12. Tramadol. 13. Desyrel as well as escitalopram. PHYSICAL EXAMINATION: VITAL SIGNS: Temperature 98, pulse 88, blood pressure 153/74. In's and out's, on the 1st, there was only 500 mL of output recorded; on the 2nd, there was 1705, and so far today, there has been 900 mL output through her ostomy. She has had minimal oral intake. GENERAL: Her family feels that anything she takes, it comes right out through her ostomy almost immediately. She is thin. SKIN: She has little bit diminished skin turgor. HEENT: Her mucous membranes are moist, but not overly moist. LUNGS: Clear. HEART: Regular rate and rhythm without clicks or murmurs. ABDOMEN: Soft and nontender. There is no rebound, no guarding. LABORATORY STUDIES: Today, potassium is 3.3, BUN is less than 4, creatinine is 1.19, glucose is 139, magnesium is 1.3, phosphorus is 3.2. ASSESSMENT: 1. Crohn disease in remission. 2. Status post ileal resection of Crohn's related adenocarcinoma of the small bowel with T1, N0 disease. 3. Complications postoperative including leak with resultant ileostomy. She has difficulty with her severe COPD from continued smoking, which she just recently stopped. She has had issues with wound healing as well as her use of intermittent steroids for both her Crohn's in the past and respiratory issues. 4. Malnutrition. RECOMMENDATIONS: 1. Stop the Reglan. It is exacerbating her diarrhea, which seems to be probably the primary etiology of not feeling good as she is dehydrated. 2. Stop the H2 blockers and start a PPI. 3. I will talk with her family. I will talk with Dr. Hickey tomorrow. I think that if we are going to move towards enteral feeding, then we need to try with the Dobbhoff tube first as she vomits and the PEG tube is not going to change her vomiting. The other option, we will put her on TPN for a time to get her nutrition back up while letting her eat and try to keep up with her output and see how she does with that. I would not cut off her oral intake. We will go ahead and increase the Imodium to 2 q.6 for a total of 8 a day and Lomotil. We will continue to follow along with you. Job ID: [id number]
[2018-08-07] MEDS ORDERED: Magnesium 2 GM/50 ML 2 GM in Premix Bag 1 BAG IVPB SCH (15:00)
[2018-08-07] MEDS: Diphenoxylate HCl/Atropine Tablet PO SCH ×2 (15:31→20:43)
--- NOTE | 2018-08-07 16:01 | CT ---
CT ARTERIOGRAM CHEST WITH IV CONTRAST AND 3D MIP IMAGING: HISTORY: Chest pain. Dyspnea. FINDINGS: There is good contrast opacification of the pulmonary arteries and thoracic aorta, with normal branch ing of the great vessels at the aortic arch. There is a calcified granuloma in the left upper lobe. The lungs are hyperinflated with mild peripheral interstitial destruction and linear scarring. No p leural fluid or pneumothorax. No enlarged lymph nodes are apparent within the mediastinum. IMPRESSION: 1. No CT evidence of pulmonary embolus. 2. Pulmonary hyperinflation with the appearance of chronic obstructive pulmonary disease. POS: [facility]
[2018-08-07] MEDS: Enoxaparin Sodium 30 MG/0.3 ML SYRINGE SC SCH (16:20)
[2018-08-07] MEDS: Pantoprazole 40 MG VIAL IVP SCH (20:43)
[2018-08-07] MEDS: Mirtazapine 15 MG TAB PO SCH (20:43)
[2018-08-08] MEDS: Diphenoxylate HCl/Atropine Tablet PO SCH ×4 (01:02→20:40)
[2018-08-08] MEDS: Ondansetron ODT 8 MG TAB PO SCH ×3 (05:33→17:28)
[2018-08-08 08:07] LABS: #Basophils 0.1 thou/uL (0.0-0.2); #Eosinphils 0.5 thou/uL (0.0-0.7); #Lymphocytes 2.9 thou/uL (1.20-3.40); #Monocytes 1.1 thou/uL (0.11-0.59); #Neutrophils 8.3 thou/uL (1.40-6.50); %Basophils 0.8 % (0.0-1.0); %Eosinophils 3.9 % (0.0-10.0); %Lymphocytes 22.4 % (21.0-51.0); %Monocytes 8.8 % (0.0-10.0); %Neutrophils 64.1 % (42.0-75.0); Hemoglobin 7.6 g/dL (12.0-16.0); Mean Corpuscular HGB CONC 32.3 g/dL (32.0-36.0); Mean Corpuscular Hemoglobin 30.3 pg (27.0-31.0); Mean Corpuscular Volume 93.9 fL (78.0-98.0); Mean Platelet Volume 7.4 fL (7.4-10.4); Platelet Count 599 thou/uL (130-400); RBC Distribution Width 14.5 % (11.5-14.5); Red Blood Cell (RBC) Count 2.51 mill/uL (4.20-5.40)
[2018-08-08 08:27] LABS: Anion Gap 14 mmol/L (10-20); BUN (Urea Nitrogen) 5 mg/dL (9.8-20.1); Calc. Creatinine Clearance 35 mL/min (70-130); Calcium 7.8 mg/dL (7.8-10.44); Carbon Dioxide 29 mmol/L (22-29); Chloride 95 mmol/L (98-107); Estimated GFR-MDRD 44; Glucose 79 mg/dL (70-105); Magnesium 1.5 mg/dL (1.6-2.6); Potassium 3.3 mmol/L (3.5-5.1); Sodium 135 mmol/L (136-145)
--- NOTE | 2018-08-08 08:49 | PRG ---
DATE OF SERVICE: 08/06/2018 SUBJECTIVE: Ms. Kwan is feeling a little better today. Her states she actually ate breakfast, half a link of sausage and several bite of egg which is the most she has eaten in the past week. She states she is not having nausea or nausea with food presentation. In talking with her, although she is on escitalopram. Apparently, she has not been taking that and I have instructed her that she needs to take that and that may be a big part of the way she is feeling. She had a low magnesium, which was replaced. She had normal Cortrosyn stim test. She had a low prealbumin of 9. B12 is fine. Folate is normal. Her white count and platelet count continued to decrease. Stool for lactoferrin yesterday was negative and stool for C. diff was negative. OBJECTIVE: VITAL SIGNS: Temperature 98, pulse 103, blood pressure 118/69. LUNGS: Clear. HEART: Regular rate and rhythm without clicks or murmurs. ABDOMEN: Soft and nontender. LABORATORY DATA: Sodium 134, potassium 3.6, BUN and creatinine are 4 and 1.24, calcium 6.1, phosphorus 3.7, magnesium less than 0.7, bilirubin 3, SGOT 18, alkaline phosphatase 185. CRP 8.76. Prealbumin 9, albumin 2.2, B12 of 335, folate 5.4. Cortrosyn stim normal. ASSESSMENT: 1. Crohn disease. No evidence of active Crohn disease. 2. Complications postoperatively with poor wound healing from chronic steroid, smoking, and in relation to the removal of the ileal adenocarcinoma, which was a T1 lesion. 3. Anorexia, likely related to inflammation related to complications of surgery, slowly is improving. 4. Depression, she is not taking antidepressants here in the hospital . 5. Hypomagnesemia, possibly from gastrointestinal loss. We will have to replace IV as magnesium will exacerbate her diarrhea. RECOMMENDATIONS: Continue Remeron. Continue Marinol. Restart her antidepressant, which she has been refusing. I have talked to her nurse about her not refusing that medicine and replace folate. Start thiamine and multivitamin. Start boost. Hopefully, we can avoid forced enteral feeding. Job ID: [id number]
[2018-08-08] MEDS: Folic Acid 1 MG TAB PO SCH (08:51)
[2018-08-08] MEDS: Escitalopram Oxalate 20 mg Tablet PO SCH (08:51)
[2018-08-08] MEDS: Pantoprazole 40 MG VIAL IVP SCH ×2 (08:52→20:40)
[2018-08-08] MEDS: Thiamine 100 MG TAB PO SCH (08:52)
[2018-08-08] MEDS: Multivit, Therapeutic 1 TAB PO SCH (08:52)
[2018-08-08] MEDS: Enoxaparin Sodium 30 MG/0.3 ML SYRINGE SC SCH (08:52)
[2018-08-08] MEDS: Dronabinol 2.5 MG CAP PO SCH ×2 (10:08→17:29)
[2018-08-08] MEDS: traMADol HCl 50 MG TAB PO PRN (10:08)
--- NOTE | 2018-08-08 13:38 | PDOC.PN ---
- Subjective Encounter Start Date: 08/08/18 Encounter Start Time: 13:40 Ostomy output slowed over the last 24-36 hours, patient states she is feeling better. Tolerated cereal for breakfast. Appetite "not normal, but definitely better." No nausea/vomiting. Tm 99.3 at 20:00 on 08/07. No SOB/fever/chills/ rigors - Objective Resuscitation Status - Order Detail: 07/26/18 17:44 Resuscitation Status Routine Resuscitation Status: FULL: Full Resuscitation Vital Signs & Weight: Vital Signs (12 hours) Temp Pulse Resp BP BP Pulse Ox 08/08/18 08:00 98.0 F 87 16 128/72 94 L 08/08/18 05:14 98.1 F 94 16 115/66 92 L Weight Admit Weight 97 lb 1 oz Weight 97 lb 1 oz I&O: 08/07/18 08/08/18 08/09/18 06:59 06:59 06:59 Intake Total 5616 2775 Output Total 4150 4400 Balance 1466 -1625 Result Diagrams: 08/11/18 08:17 08/12/18 07:15 Phys Exam - Physical Examination Constitutional: NAD HEENT: PERRLA, moist MMs Neck: supple, full ROM Respiratory: clear to auscultation bilateral Cardiovascular: RRR Gastrointestinal: soft, positive bowel sounds Ileostomy in place Musculoskeletal: no edema Neurological: non-focal, moves all 4 limbs Psychiatric: normal affect, A&O x 3 Skin: no rash Dx/Plan (1) Hypomagnesemia Code(s): E83.42 - HYPOMAGNESEMIA Status: Acute (2) Protein-calorie malnutrition, moderate Code(s): E44.0 - MODERATE PROTEIN-CALORIE MALNUTRITION Status: Acute (3) Hypokalemia, gastrointestinal losses Code(s): E87.6 - HYPOKALEMIA Status: Acute (4) S/P ileostomy Code(s): Z93.2 - ILEOSTOMY STATUS Status: Acute Comment: As per surgery/ PCP. (5) Thrombocytosis Status: Acute (6) Crohn's disease Code(s): K50.90 - CROHN'S DISEASE, UNSPECIFIED, WITHOUT COMPLICATIONS Status: Chronic Qualifiers: Gastrointestinal tract location: small and large intestine Comment: h/o ileocecectomy for stricture and adenocarcinoma- completely removed with clear margins (7) Depression Code(s): F32.9 - MAJOR DEPRESSIVE DISORDER, SINGLE EPISODE, UNSPECIFIED Status : Chronic Qualifiers: Depression Type: major depressive disorder Active/Remission status: in full remission (8) COPD not affecting current episode of care Code(s): J44.9 - CHRONIC OBSTRUCTIVE PULMONARY DISEASE, UNSPECIFIED Status: Acute - Plan * GI - Crohn's disease in remission. 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 * Pulm - COPD, stable. Tobacco use s/p cessation. CT angiogram from 08/07 negative for PE. * FEN -Hypokalemia and Hypomagnesemia - replete IV, check AML. Continue oral feeds. Options noted per GI, DHT versus TPN for limited period of time. * Heme -NC anemia, slightly lower today, no obvious blood loss, follow. * DVT proph - lovenox daily *
[2018-08-08] MEDS ORDERED: Magnesium 2 GM/50 ML 2 GM in Premix Bag 1 BAG IVPB SCH (14:30)
[2018-08-08] MEDS ORDERED: Potassium Chloride 10 MEQ in Premix Bag 1 BAG IVPB SCH ×4 (14:30→18:00)
--- NOTE | 2018-08-08 16:27 | PRG ---
DATE OF SERVICE: 08/08/2018 SUBJECTIVE: Ms. Kwan is feeling better. She is smiling today. She was able to eat some breakfast. She is not vomiting. OBJECTIVE: VITAL SIGNS: Temperature is 98, pulse 87, blood pressure 120/72. ABDOMEN: Soft, nontender. Her incision where her wound VAC is much improved. Her ostomy output has gone down quite a bit with output of only about 100 mL today. LABORATORY DATA: White count 13, hemoglobin 7.6, platelet count 599. Sodium 135, potassium 3.3, magnesium 1.5, calcium 7.8, BUN and creatinine are 5 and 1.27. ASSESSMENT: 1. Anorexia, improved today. 2. High output of her ostomy. We stopped the Reglan. We have also added Lomotil. 3. With regard to her appetite, we have placed her on Marinol and Remeron. 4. Hypokalemia and magnesemia. She is receiving IV supplements. RECOMMENDATIONS: Continue leading her toward SNU. We will continue to monitor her electrolytes daily, replace IV as oral seem to make her nauseated. If she still continues to have issues with high output, we can always consider pushing her back on a partial PPN. However, she had fungemia previously with that, Dr. Hickey has told me today. We will continue to follow along with you. Job ID: [id number]
[2018-08-08] MEDS: Mirtazapine 15 MG TAB PO SCH (20:40)
[2018-08-08] MEDS: Acetaminophen 500 MG TAB PO PRN (20:41)
[2018-08-09] MEDS: Diphenoxylate HCl/Atropine Tablet PO SCH ×4 (00:45→20:28)
[2018-08-09] MEDS: Ondansetron ODT 8 MG TAB PO SCH ×4 (00:45→17:03)
[2018-08-09 07:19] LABS: #Basophils 0.1 thou/uL (0.0-0.2); #Lymphocytes 2.7 thou/uL (1.20-3.40); #Monocytes 1.1 thou/uL (0.11-0.59); #Neutrophils 8.6 thou/uL (1.40-6.50); %Basophils 0.5 % (0.0-1.0); %Eosinophils 7.7 % (0.0-10.0); %Monocytes 7.9 % (0.0-10.0); %Neutrophils 63.9 % (42.0-75.0); Mean Corpuscular HGB CONC 31.5 g/dL (32.0-36.0); Mean Corpuscular Hemoglobin 28.9 pg (27.0-31.0); Mean Corpuscular Volume 91.7 fL (78.0-98.0); Mean Platelet Volume 7.4 fL (7.4-10.4); Platelet Count 663 thou/uL (130-400); RBC Distribution Width 14.5 % (11.5-14.5); Red Blood Cell (RBC) Count 2.75 mill/uL (4.20-5.40); White Blood Cell (WBC) Count 13.5 thou/uL (4.8-10.8)
[2018-08-09 07:36] LABS: Anion Gap 12 mmol/L (10-20); BUN (Urea Nitrogen) 8 mg/dL (9.8-20.1); Calc. Creatinine Clearance 33 mL/min (70-130); Carbon Dioxide 30 mmol/L (22-29); Chloride 95 mmol/L (98-107); Estimated GFR-MDRD 41; Glucose 72 mg/dL (70-105); Magnesium 2.5 mg/dL (1.6-2.6); Potassium 3.3 mmol/L (3.5-5.1); Sodium 134 mmol/L (136-145)
[2018-08-09] MEDS: Sodium Chloride 0.9% (PF) 10 ML VIAL FS PRN (07:59)
[2018-08-09] MEDS: Enoxaparin Sodium 30 MG/0.3 ML SYRINGE SC SCH (08:00)
[2018-08-09] MEDS: Folic Acid 1 MG TAB PO SCH (08:00)
[2018-08-09] MEDS: Pantoprazole 40 MG VIAL IVP SCH ×2 (08:00→20:29)
[2018-08-09] MEDS: Thiamine 100 MG TAB PO SCH (08:00)
[2018-08-09] MEDS: Multivit, Therapeutic 1 TAB PO SCH (08:00)
[2018-08-09] MEDS: Escitalopram Oxalate 20 mg Tablet PO SCH (08:00)
--- NOTE | 2018-08-09 10:06 | PDOC.GSPN ---
Surgery Progress Note: Subj - Subjective Patient reports: no new complaints (ate some steak and potatoes last night) Surgery Progress Note: Obj - Vital signs Vital signs: Vital Signs - Most Recent Temp Pulse Resp BP Pulse Ox 98.2 F 100 16 149/76 H 90 L 08/09/18 08:00 08/09/18 08:00 08/09/18 08:00 08/09/18 08:00 08/09/18 08:00 - Physical Exam General: no distress Abdomen: soft, non tender Wound: healing well, wound vac Surgery Progress Note: Results - Labs Result Diagrams: 08/09/18 06:34 08/09/18 06:34 Lab results: Laboratory Results - last 24 hr 08/09/18 08/09/18 06:34 06:34 WBC 13.5 H RBC 2.75 L Hgb 8.0 L Hct 25.2 L MCV 91.7 MCH 28.9 MCHC 31.5 L RDW 14.5 Plt Count 663 H MPV 7.4 Neutrophils % 63.9 Lymphocytes % 20.0 L Monocytes % 7.9 Eosinophils % 7.7 Basophils % 0.5 Neutrophils # 8.6 H Lymphocytes # 2.7 Monocytes # 1.1 H Eosinophils # 1.0 H Basophils # 0.1 Sodium 134 L Potassium 3.3 L Chloride 95 L Carbon Dioxide 30 H Anion Gap 12 BUN 8 L Creatinine 1.36 H Estimated GFR (MDRD) 41 Glucose 72 Calcium 8.0 Magnesium 2.5 Surgery Progress Note: A/P - Problem (1) Mild dehydration Current Visit: No Code(s): E86.0 - DEHYDRATION Status: Acute (2) Intra-abdominal abscess Current Visit: No Code(s): K65.1 - PERITONEAL ABSCESS Status: Chronic - Plan Plan: Needs to eat more. -Stars started marinol which has helped some. -output from ostomy is manageable and will become more solid as she eats more. -if dc'd before more po intake she will likely return
[2018-08-09] MEDS: Dronabinol 2.5 MG CAP PO SCH ×2 (10:28→17:03)
--- NOTE | 2018-08-09 11:31 | PDOC.PN ---
- Subjective Encounter Start Date: 08/09/18 Encounter Start Time: 10:00 Subjective: no abd pain or nausea -: says she is eating better - Objective Resuscitation Status - Order Detail: 07/26/18 17:44 Resuscitation Status Routine Resuscitation Status: FULL: Full Resuscitation MAR Reviewed: Yes Vital Signs & Weight: Vital Signs (12 hours) Temp Pulse Resp BP Pulse Ox 08/09/18 08:00 98.2 F 100 16 149/76 H 90 L Weight Admit Weight 97 lb 1 oz Weight 97 lb 1 oz I&O: 08/08/18 08/09/18 08/10/18 06:59 06:59 06:59 Intake Total 2775 1110 Output Total 4400 1250 Balance -1625 -140 Result Diagrams: 08/09/18 06:34 08/09/18 06:34 Phys Exam - Physical Examination HEENT: PERRLA, moist MMs Neck: no JVD, supple Respiratory: no wheezing, no rales Cardiovascular: RRR, no significant murmur Gastrointestinal: soft, non-tender, positive bowel sounds ileostomy has liq stool Musculoskeletal: no edema, pulses present Neurological: non-focal, moves all 4 limbs Psychiatric: normal affect, A&O x 3 Dx/Plan (1) Nausea & vomiting Code(s): R11.2 - NAUSEA WITH VOMITING, UNSPECIFIED Status: Acute Qualifiers: Vomiting type: unspecified Vomiting Intractability: intractable Qualified Code(s): R11.2 - Nausea with vomiting, unspecified (2) Severe dehydration Code(s): E86.0 - DEHYDRATION Status: Resolved Comment: resolving (3) Hyponatremia Code(s): E87.1 - HYPO-OSMOLALITY AND HYPONATREMIA Status: Resolved (4) RUT (acute kidney injury) Code(s): N17.9 - ACUTE KIDNEY FAILURE, UNSPECIFIED Status: Resolved (5) Metabolic acidosis Code(s): E87.2 - ACIDOSIS Status: Resolved (6) Intra-abdominal abscess Code(s): K65.1 - PERITONEAL ABSCESS Status: Chronic (7) Crohn's disease Code(s): K50.90 - CROHN'S DISEASE, UNSPECIFIED, WITHOUT COMPLICATIONS Status: Chronic Qualifiers: Gastrointestinal tract location: small and large intestine Comment: h/o ileocecectomy for stricture and adenocarcinoma- completely removed with clear margins (8) Depression Code(s): F32.9 - MAJOR DEPRESSIVE DISORDER, SINGLE EPISODE, UNSPECIFIED Status : Chronic Qualifiers: Depression Type: major depressive disorder Active/Remission status: in full remission (9) GERD (gastroesophageal reflux disease) Code(s): K21.9 - GASTRO-ESOPHAGEAL REFLUX DISEASE WITHOUT ESOPHAGITIS Status: Chronic Qualifiers: Esophagitis presence: esophagitis presence not specified Qualified Code(s) : K21.9 - Gastro-esophageal reflux disease without esophagitis - Plan is on marinol, remeron and lomotil -: encourage po intake -: dc plan when stool thickens a bit more with increased oral intake per GS -: to amb as tolerated * . Review of Systems - Medications/Allergies Allergies/Adverse Reactions: Allergies Allergy/AdvReac Type Severity Reaction Status Date / Time ciprofloxacin [From Cipro] Allergy Verified 07/15/18 23:27 hydrocodone AdvReac Verified 07/17/18 21:52 Medications: Current Medications Acetaminophen (Tylenol) 1,000 mg PO Q6H PRN PRN Reason: Mild Pain (1-3) Last Admin: 08/08/18 20:41 Dose: 1,000 mg Albuterol/Ipratropium (Duoneb) 3 ml NEB [id number] PRN PRN Reason: SOB &/or Wheezing Diphenoxylate HCl/Atropine (Lomotil) 2 tab PO Q6H [facility] Last Admin: 08/09/18 08:00 Dose: 2 tab Dronabinol (Marinol) 2.5 mg PO BID-AC [facility] Last Admin: 08/09/18 10:28 Dose: 2.5 mg Enoxaparin Sodium (Lovenox) 30 mg SC 0900 [facility] Last Admin: 08/09/18 08:00 Dose: 30 mg Escitalopram Oxalate (Lexapro) 20 mg PO DAILY [facility] Last Admin: 08/09/18 08:00 Dose: 20 mg Folic Acid (Folvite) 1 mg PO DAILY [facility] Last Admin: 08/09/18 08:00 Dose: 1 mg Mirtazapine (Remeron) 15 mg PO HS [facility] Last Admin: 08/08/18 20:40 Dose: 15 mg Multivitamins (Theragran) 1 tab PO DAILY [facility] Last Admin: 08/09/18 08:00 Dose: 1 tab Ondansetron HCl (Zofran Odt) 8 mg PO Q6HR [facility] Last Admin: 08/09/18 05:26 Dose: 8 mg Pantoprazole Sodium (Protonix) 40 mg IVP Q12HR [facility] Last Admin: 08/09/18 08:00 Dose: 40 mg Promethazine HCl (Phenergan) 12.5 mg IM Q4H PRN PRN Reason: Nausea/Vomiting Last Admin: 08/03/18 09:49 Dose: 12.5 mg Promethazine HCl (Phenergan Suppository) 25 mg [place] Q6H PRN PRN Reason: Nausea/Vomiting Promethazine HCl (Phenergan) 12.5 mg SLOW IVP Q4H PRN PRN Reason: Nausea Last Admin: 08/07/18 08:55 Dose: 12.5 mg Sodium Chloride (Flush - Normal Saline) 10 ml IVF Q12HR [facility] Last Admin: 08/09/18 08:01 Dose: 10 ml Sodium Chloride (Flush - Normal Saline) 10 ml IVF PRN PRN PRN Reason: Saline Flush Last Admin: 08/07/18 12:32 Dose: 10 ml Sodium Chloride (Normal Saline Pf) 10 ml FS PRN PRN PRN Reason: RECONSTITUTION Last Admin: 08/09/18 07:59 Dose: 10 ml Thiamine HCl (Thiamine) 100 mg PO DAILY [facility] Last Admin: 08/09/18 08:00 Dose: 100 mg Tramadol HCl (Ultram) 50 mg PO Q6H PRN PRN Reason: Moderate Pain (4-6) Tramadol HCl (Ultram) 100 mg PO Q6H PRN PRN Reason: Severe Pain (7-10) Last Admin: 08/08/18 10:08 Dose: 100 mg Trazodone HCl (Desyrel) 50 mg PO HSPRN PRN PRN Reason: Insomnia
[2018-08-09] MEDS: Mirtazapine 15 MG TAB PO SCH (20:29)
[2018-08-09] MEDS: Acetaminophen 500 MG TAB PO PRN (20:29)
[2018-08-10] MEDS: Ondansetron ODT 8 MG TAB PO SCH ×5 (00:40→23:47)
[2018-08-10] MEDS: Diphenoxylate HCl/Atropine Tablet PO SCH ×4 (00:40→20:43)
[2018-08-10 07:25] LABS: Anion Gap 14 mmol/L (10-20); BUN (Urea Nitrogen) 7 mg/dL (9.8-20.1); Calc. Creatinine Clearance 30 mL/min (70-130); Calcium 8.5 mg/dL (7.8-10.44); Carbon Dioxide 31 mmol/L (22-29); Chloride 97 mmol/L (98-107); Estimated GFR-MDRD 36; Glucose 102 mg/dL (70-105); Sodium 139 mmol/L (136-145)
[2018-08-10 07:29] LABS: Potassium 2.9 mmol/L (3.5-5.1)
--- NOTE | 2018-08-10 08:11 | PRG ---
DATE OF SERVICE: 08/09/2018 SUBJECTIVE: Ms. Kwan is without complaints. She has a peach she is going to eat for dinner. She states she did throw up a little bit of her Ensure earlier, but she did have her breakfast and lunch today. OBJECTIVE: VITAL SIGNS: Pulse is 100, temperature is 98, and blood pressure 149/76. LUNGS: Clear. ABDOMEN: Soft and nontender. LABORATORY DATA: White count is 13.5, hemoglobin is 8, and platelet count is 663. Sodium 134, potassium 3.3, and BUN and creatinine are 8 and 1.37. ASSESSMENT: 1. Thrombocytosis. I am concerned this is a sign of inflammation. She had a fungemia for the past week, she has been off her Humira now since her initial surgery about 2 months ago. 2. Anorexia and food aversion, improving. She has been restarted on antidepressants, Remeron and . 3. Nausea and vomiting, somewhat improved, but still, she regurgitates at time. She states she sits up in bed, and when she eats, she sits up fully in a chair and does not eat within 5 hours lying down. 4. History of fungemia, finished antibiotics just recently for this. Antifungals ,will try to hold off on going back on TPN or starting her tumor necrosis factor inhibitor right now. We will follow along with you. Job ID: [id number]
[2018-08-10] MEDS: Dronabinol 2.5 MG CAP PO SCH ×2 (09:13→17:14)
[2018-08-10] MEDS: Enoxaparin Sodium 30 MG/0.3 ML SYRINGE SC SCH (09:13)
[2018-08-10] MEDS: Folic Acid 1 MG TAB PO SCH (09:14)
[2018-08-10] MEDS: Thiamine 100 MG TAB PO SCH (09:14)
[2018-08-10] MEDS: Multivit, Therapeutic 1 TAB PO SCH (09:14)
[2018-08-10] MEDS: Pantoprazole 40 MG VIAL IVP SCH ×2 (09:14→20:44)
[2018-08-10] MEDS: Escitalopram Oxalate 20 mg Tablet PO SCH (09:14)
--- NOTE | 2018-08-10 13:19 | PDOC.PN ---
- Subjective Encounter Start Date: 08/10/18 Encounter Start Time: 07:45 Subjective: is tolerating oral diet - Objective Resuscitation Status - Order Detail: 07/26/18 17:44 Resuscitation Status Routine Resuscitation Status: FULL: Full Resuscitation MAR Reviewed: Yes Vital Signs & Weight: Vital Signs (12 hours) Temp Pulse Resp BP Pulse Ox 08/10/18 07:38 98 F 80 18 125/68 92 L Weight Admit Weight 97 lb 1 oz Weight 97 lb 1 oz I&O: 08/09/18 08/10/18 08/11/18 06:59 06:59 06:59 Intake Total 1110 780 100 Output Total 1250 800 Balance -140 -20 100 Result Diagrams: 08/09/18 06:34 08/10/18 06:39 Phys Exam - Physical Examination HEENT: PERRLA, moist MMs Neck: no JVD, supple Respiratory: no wheezing, no rales Cardiovascular: RRR, no significant murmur Gastrointestinal: soft, no distention, positive bowel sounds liq stool in ileostomy, wound vac Musculoskeletal: no edema, pulses present Neurological: non-focal, moves all 4 limbs Psychiatric: normal affect, A&O x 3 Dx/Plan (1) Nausea & vomiting Code(s): R11.2 - NAUSEA WITH VOMITING, UNSPECIFIED Status: Acute Qualifiers: Vomiting type: unspecified Vomiting Intractability: intractable Qualified Code(s): R11.2 - Nausea with vomiting, unspecified (2) Severe dehydration Code(s): E86.0 - DEHYDRATION Status: Resolved Comment: resolving (3) Hyponatremia Code(s): E87.1 - HYPO-OSMOLALITY AND HYPONATREMIA Status: Resolved (4) RUT (acute kidney injury) Code(s): N17.9 - ACUTE KIDNEY FAILURE, UNSPECIFIED Status: Resolved (5) Metabolic acidosis Code(s): E87.2 - ACIDOSIS Status: Resolved (6) Intra-abdominal abscess Code(s): K65.1 - PERITONEAL ABSCESS Status: Chronic (7) Crohn's disease Code(s): K50.90 - CROHN'S DISEASE, UNSPECIFIED, WITHOUT COMPLICATIONS Status: Chronic Qualifiers: Gastrointestinal tract location: small and large intestine Comment: h/o ileocecectomy for stricture and adenocarcinoma- completely removed with clear margins (8) Depression Code(s): F32.9 - MAJOR DEPRESSIVE DISORDER, SINGLE EPISODE, UNSPECIFIED Status : Chronic Qualifiers: Depression Type: major depressive disorder Active/Remission status: in full remission (9) GERD (gastroesophageal reflux disease) Code(s): K21.9 - GASTRO-ESOPHAGEAL REFLUX DISEASE WITHOUT ESOPHAGITIS Status: Chronic Qualifiers: Esophagitis presence: esophagitis presence not specified Qualified Code(s) : K21.9 - Gastro-esophageal reflux disease without esophagitis - Plan dc plan per gen surgery advice -: replace potassium -: ?calorie count, accurate I/O -: hemostable, is amb in hallway * . Review of Systems - Medications/Allergies Allergies/Adverse Reactions: Allergies Allergy/AdvReac Type Severity Reaction Status Date / Time ciprofloxacin [From Cipro] Allergy Verified 07/15/18 23:27 hydrocodone AdvReac Verified 07/17/18 21:52 Medications: Current Medications Acetaminophen (Tylenol) 1,000 mg PO Q6H PRN PRN Reason: Mild Pain (1-3) Last Admin: 08/09/18 20:29 Dose: 1,000 mg Albuterol/Ipratropium (Duoneb) 3 ml NEB [id number] PRN PRN Reason: SOB &/or Wheezing Diphenoxylate HCl/Atropine (Lomotil) 2 tab PO Q6H [facility] Last Admin: 08/10/18 09:16 Dose: 2 tab Dronabinol (Marinol) 2.5 mg PO BID-AC [facility] Last Admin: 08/10/18 09:13 Dose: 2.5 mg Enoxaparin Sodium (Lovenox) 30 mg SC 0900 [facility] Last Admin: 08/10/18 09:13 Dose: 30 mg Escitalopram Oxalate (Lexapro) 20 mg PO DAILY [facility] Last Admin: 08/10/18 09:14 Dose: 20 mg Folic Acid (Folvite) 1 mg PO DAILY [facility] Last Admin: 08/10/18 09:14 Dose: 1 mg Mirtazapine (Remeron) 15 mg PO HS [facility] Last Admin: 08/09/18 20:29 Dose: 15 mg Multivitamins (Theragran) 1 tab PO DAILY [facility] Last Admin: 08/10/18 09:14 Dose: 1 tab Ondansetron HCl (Zofran Odt) 8 mg PO Q6HR [facility] Last Admin: 08/10/18 11:55 Dose: 8 mg Pantoprazole Sodium (Protonix) 40 mg IVP Q12HR [facility] Last Admin: 08/10/18 09:14 Dose: 40 mg Potassium Chloride (Klor-Con) 40 meq PO Q6HR [facility] Stop: 08/11/18 12:01 Last Admin: 08/10/18 11:55 Dose: 40 meq Promethazine HCl (Phenergan) 12.5 mg IM Q4H PRN PRN Reason: Nausea/Vomiting Last Admin: 08/03/18 09:49 Dose: 12.5 mg Promethazine HCl (Phenergan Suppository) 25 mg [place] Q6H PRN PRN Reason: Nausea/Vomiting Promethazine HCl (Phenergan) 12.5 mg SLOW IVP Q4H PRN PRN Reason: Nausea Last Admin: 08/07/18 08:55 Dose: 12.5 mg Sodium Chloride (Flush - Normal Saline) 10 ml IVF Q12HR [facility] Last Admin: 08/10/18 09:14 Dose: 10 ml Sodium Chloride (Flush - Normal Saline) 10 ml IVF PRN PRN PRN Reason: Saline Flush Last Admin: 08/07/18 12:32 Dose: 10 ml Sodium Chloride (Normal Saline Pf) 10 ml FS PRN PRN PRN Reason: RECONSTITUTION Last Admin: 08/09/18 07:59 Dose: 10 ml Thiamine HCl (Thiamine) 100 mg PO DAILY [facility] Last Admin: 08/10/18 09:14 Dose: 100 mg Tramadol HCl (Ultram) 50 mg PO Q6H PRN PRN Reason: Moderate Pain (4-6) Tramadol HCl (Ultram) 100 mg PO Q6H PRN PRN Reason: Severe Pain (7-10) Last Admin: 08/08/18 10:08 Dose: 100 mg Trazodone HCl (Desyrel) 50 mg PO HSPRN PRN PRN Reason: Insomnia
--- NOTE | 2018-08-10 15:52 | PDOC.GSPN ---
Surgery Progress Note: Subj - Subjective Patient reports: no new complaints (She is eating small amounts. The oral potassium makes her have nausea) Surgery Progress Note: Obj - Vital signs Vital signs: Vital Signs - Most Recent Temp Pulse Resp BP Pulse Ox 98 F 80 18 125/68 92 L 08/10/18 07:38 08/10/18 07:38 08/10/18 07:38 08/10/18 07:38 08/10/18 07:38 - Physical Exam General: no distress Respiratory: clear to auscultation Abdomen: soft, non tender Wound: healing well (The vac has been removed.) Surgery Progress Note: Results - Labs Result Diagrams: 08/09/18 06:34 08/10/18 06:39 Lab results: Laboratory Results - last 24 hr 08/10/18 06:39 Sodium 139 Potassium 2.9 L* Chloride 97 L Carbon Dioxide 31 H Anion Gap 14 BUN 7 L Creatinine 1.49 H Estimated GFR (MDRD) 36 Glucose 102 Calcium 8.5 Surgery Progress Note: A/P - Problem (1) Mild dehydration Current Visit: No Code(s): E86.0 - DEHYDRATION Status: Acute (2) Intra-abdominal abscess Current Visit: No Code(s): K65.1 - PERITONEAL ABSCESS Status: Chronic - Plan Plan: Slow improvement -changed kcl to IV sinco po making her sick\ -continue to encourage increased po intake -ostomy output more controlled on lomotil
[2018-08-10] MEDS ORDERED: Potassium Chloride 40 MEQ in Sodium Chloride 0.9% 250 ML 250 ML IVPB SCH (16:30)
[2018-08-10] MEDS: Potassium Chloride 20 MEQ in Premix Bag 1 BAG IVPB SCH ×2 (17:52→23:48)
--- NOTE | 2018-08-10 18:15 | PRG ---
DATE OF SERVICE: 08/10/2018 SUBJECTIVE: Ms. Kwan states she ate today. She had half of a cup of mashed potatoes. We checked with her , who brought her last night, still sitting on the counter. The nurse notes she typically lies in bed, she did walk with the physical therapist, but is not getting out of bed. OBJECTIVE: VITAL SIGNS: Temperature 98, pulse 80, blood pressure 125/68. GENERAL: She is thin. HEENT: Oropharynx is dry. NECK: Supple. ABDOMEN: Soft. This ostomy output is about less than a liter a day. LABORATORY DATA: Sodium 139, potassium 2.9 today. BUN and creatinine are 7 and 1.49. Most recent blood culture is negative. She has PICC line with presumptive of Tova from 07/15/2018. This has been treated with most recent blood culture on 08/07/2018, have been negative. ASSESSMENT: 1. Crohn disease, in clinical remission. 2. Status post resection of small bowel tumor, T1 N0. 3. Complications post resection of above tumor with anastomotic leak requiring diverting ileostomy, wound VAC drainage. She has been slow to response since that time. She has been a chronic smoker and had been on steroids on and off for chronic lung disease in the past. 4. Malnutrition. She is not eating. She is anorexic either from all that is going on for her or her depression. Her medications have been reviewed extensively. She is still not eating after a week of medication changes, dietary teaching, and appetite stimulants. RECOMMENDATIONS: 1. EGD tomorrow to make sure we are not missing some process in the upper stomach. 2. If this is negative, I think she probably needs to be started on TPN at this point in time and she will need to be in the inpatient setting in rehab as she always ended up with an infected PICC line when she went home with nutrition previously. Job ID: [id number]
[2018-08-10] MEDS: D5 0.9% NS w/ 20 mEq KCl 1,000 ML IV SCH (20:38)
[2018-08-10] MEDS: Mirtazapine 15 MG TAB PO SCH (20:43)
[2018-08-10] MEDS: Acetaminophen 500 MG TAB PO PRN (20:44)
[2018-08-11] MEDS: D5 0.9% NS w/ 20 mEq KCl 1,000 ML IV SCH ×3 (02:14→20:37)
[2018-08-11] MEDS: Diphenoxylate HCl/Atropine Tablet PO SCH ×4 (02:14→20:46)
[2018-08-11] MEDS: Ondansetron ODT 8 MG TAB PO SCH ×3 (05:43→18:13)
[2018-08-11 08:45] LABS: #Basophils 0.1 thou/uL (0.0-0.2); #Eosinphils 0.3 thou/uL (0.0-0.7); #Lymphocytes 2.2 thou/uL (1.20-3.40); #Monocytes 0.7 thou/uL (0.11-0.59); #Neutrophils 7.8 thou/uL (1.40-6.50); %Basophils 0.5 % (0.0-1.0); %Eosinophils 2.5 % (0.0-10.0); %Lymphocytes 19.9 % (21.0-51.0); %Monocytes 6.5 % (0.0-10.0); %Neutrophils 70.6 % (42.0-75.0); Hemoglobin 8.4 g/dL (12.0-16.0); Mean Corpuscular HGB CONC 32.1 g/dL (32.0-36.0); Mean Corpuscular Hemoglobin 29.4 pg (27.0-31.0); Mean Corpuscular Volume 91.5 fL (78.0-98.0); Mean Platelet Volume 7.1 fL (7.4-10.4); Platelet Count 829 thou/uL (130-400); RBC Distribution Width 14.8 % (11.5-14.5); Red Blood Cell (RBC) Count 2.85 mill/uL (4.20-5.40)
[2018-08-11 09:04] LABS: Phosphorus 3.1 mg/dL (2.3-4.7)
[2018-08-11 09:05] LABS: Anion Gap 12 mmol/L (10-20); BUN (Urea Nitrogen) 4 mg/dL (9.8-20.1); Calc. Creatinine Clearance 37 mL/min (70-130); Calcium 8.2 mg/dL (7.8-10.44); Carbon Dioxide 23 mmol/L (22-29); Chloride 104 mmol/L (98-107); Estimated GFR-MDRD 46; Glucose 91 mg/dL (70-105); Magnesium 1.1 mg/dL (1.6-2.6); Potassium 3.9 mmol/L (3.5-5.1); Sodium 135 mmol/L (136-145)
[2018-08-11] MEDS: Enoxaparin Sodium 30 MG/0.3 ML SYRINGE SC SCH (09:41)
[2018-08-11] MEDS: Dronabinol 2.5 MG CAP PO SCH ×2 (09:43→16:12)
[2018-08-11] MEDS: Folic Acid 1 MG TAB PO SCH (09:43)
[2018-08-11] MEDS: Multivit, Therapeutic 1 TAB PO SCH (09:43)
[2018-08-11] MEDS: Thiamine 100 MG TAB PO SCH (09:43)
[2018-08-11] MEDS: Escitalopram Oxalate 20 mg Tablet PO SCH (09:43)
[2018-08-11] MEDS: Pantoprazole 40 MG VIAL IVP SCH ×2 (09:43→20:39)
[2018-08-11] MEDS ORDERED: PROPOFOL 200 MG/20 ML VIAL ONE (10:55)
[2018-08-11] MEDS ORDERED: Lidocaine 1% PF 5 ML VIAL ONE (10:55)
[2018-08-11] MEDS ORDERED: Promethazine HCl 25 MG/ML VIAL IM PRN (13:26)
--- NOTE | 2018-08-11 14:33 | PDOC.PN ---
- Subjective Encounter Start Date: 08/11/18 Encounter Start Time: 07:45 Subjective: off and on nausea, eating poorly -: no abd pain - Objective Resuscitation Status - Order Detail: 07/26/18 17:44 Resuscitation Status Routine Resuscitation Status: FULL: Full Resuscitation MAR Reviewed: Yes Vital Signs & Weight: Vital Signs (12 hours) Temp Pulse Resp BP BP Pulse Ox 08/11/18 14:26 97.5 F L 90 16 147/81 H 95 08/11/18 08:00 92 L 08/11/18 07:37 97.9 F 86 18 133/69 92 L Weight Admit Weight 97 lb 1 oz Weight 97 lb 1 oz I&O: 08/10/18 08/11/18 08/12/18 06:59 06:59 06:59 Intake Total 780 1923 Output Total 800 700 Balance -20 1223 Result Diagrams: 08/11/18 08:17 08/11/18 08:17 Phys Exam - Physical Examination HEENT: PERRLA, moist MMs Neck: no JVD, supple Respiratory: no wheezing, no rales Cardiovascular: RRR, no significant murmur Gastrointestinal: soft, non-tender, positive bowel sounds wound vac+, ileostomy has watery stool Musculoskeletal: no edema, pulses present Neurological: non-focal, moves all 4 limbs Psychiatric: normal affect, A&O x 3 Dx/Plan (1) Nausea & vomiting Code(s): R11.2 - NAUSEA WITH VOMITING, UNSPECIFIED Status: Acute Qualifiers: Vomiting type: unspecified Vomiting Intractability: intractable Qualified Code(s): R11.2 - Nausea with vomiting, unspecified (2) Severe dehydration Code(s): E86.0 - DEHYDRATION Status: Resolved Comment: resolving (3) Hyponatremia Code(s): E87.1 - HYPO-OSMOLALITY AND HYPONATREMIA Status: Resolved (4) RUT (acute kidney injury) Code(s): N17.9 - ACUTE KIDNEY FAILURE, UNSPECIFIED Status: Resolved (5) Metabolic acidosis Code(s): E87.2 - ACIDOSIS Status: Resolved (6) Intra-abdominal abscess Code(s): K65.1 - PERITONEAL ABSCESS Status: Chronic (7) Crohn's disease Code(s): K50.90 - CROHN'S DISEASE, UNSPECIFIED, WITHOUT COMPLICATIONS Status: Chronic Qualifiers: Gastrointestinal tract location: small and large intestine Comment: h/o ileocecectomy for stricture and adenocarcinoma- completely removed with clear margins (8) Depression Code(s): F32.9 - MAJOR DEPRESSIVE DISORDER, SINGLE EPISODE, UNSPECIFIED Status : Chronic Qualifiers: Depression Type: major depressive disorder Active/Remission status: in full remission (9) GERD (gastroesophageal reflux disease) Code(s): K21.9 - GASTRO-ESOPHAGEAL REFLUX DISEASE WITHOUT ESOPHAGITIS Status: Chronic Qualifiers: Esophagitis presence: esophagitis presence not specified Qualified Code(s) : K21.9 - Gastro-esophageal reflux disease without esophagitis - Plan will have EGD today -: likely will start tpn, its been day 16 with ongoing oral trials -: will need ltac/swing bed, d/w case mgmt -: electrolytes are stable -: gentle iv fluids, marinol, remeron and lomotil * . Review of Systems - Medications/Allergies Allergies/Adverse Reactions: Allergies Allergy/AdvReac Type Severity Reaction Status Date / Time ciprofloxacin [From Cipro] Allergy Verified 07/15/18 23:27 hydrocodone AdvReac Verified 07/17/18 21:52 Medications: Current Medications Acetaminophen (Tylenol) 1,000 mg PO Q6H PRN PRN Reason: Mild Pain (1-3) Last Admin: 08/10/18 20:44 Dose: 1,000 mg Albuterol/Ipratropium (Duoneb) 3 ml NEB [id number] PRN PRN Reason: SOB &/or Wheezing Diphenoxylate HCl/Atropine (Lomotil) 2 tab PO Q6H [facility] Last Admin: 08/11/18 09:42 Dose: 2 tab Dronabinol (Marinol) 2.5 mg PO BID-AC [facility] Last Admin: 08/11/18 09:43 Dose: 2.5 mg Enoxaparin Sodium (Lovenox) 30 mg SC 0900 [facility] Last Admin: 08/11/18 09:41 Dose: Not Given Escitalopram Oxalate (Lexapro) 20 mg PO DAILY [facility] Last Admin: 08/11/18 09:43 Dose: 20 mg Fentanyl (Pacu-Sublimaze) 25 mcg SLOW IVP Q10MIN PRN PRN Reason: Moderate to Severe Pain (6-10) Stop: 08/11/18 16:27 Folic Acid (Folvite) 1 mg PO DAILY [facility] Last Admin: 08/11/18 09:43 Dose: 1 mg Potassium Chloride/Dextrose/Sod Cl (D5 0.9% Ns W/ 20 Meq Kcl) 1,000 mls @ 100 mls/hr IV .Q10H [facility] Last Admin: 08/11/18 05:42 Dose: 1,000 mls Mirtazapine (Remeron) 15 mg PO HS [facility] Last Admin: 08/10/18 20:43 Dose: 15 mg Multivitamins (Theragran) 1 tab PO DAILY [facility] Last Admin: 08/11/18 09:43 Dose: 1 tab Ondansetron HCl (Zofran Odt) 8 mg PO Q6HR [facility] Last Admin: 08/11/18 13:04 Dose: Not Given Pantoprazole Sodium (Protonix) 40 mg IVP Q12HR [facility] Last Admin: 08/11/18 09:43 Dose: 40 mg Promethazine HCl (Phenergan) 12.5 mg IM Q4H PRN PRN Reason: Nausea/Vomiting Last Admin: 08/03/18 09:49 Dose: 12.5 mg Promethazine HCl (Phenergan Suppository) 25 mg HI Q6H PRN PRN Reason: Nausea/Vomiting Promethazine HCl (Phenergan) 12.5 mg SLOW IVP Q4H PRN PRN Reason: Nausea Last Admin: 08/07/18 08:55 Dose: 12.5 mg Promethazine HCl (Pacu-Phenergan) 6.25 mg IM ONE PRN PRN Reason: Nausea/Vomiting Stop: 08/11/18 16:27 Sodium Chloride (Flush - Normal Saline) 10 ml IVF Q12HR [facility] Last Admin: 08/11/18 09:43 Dose: 10 ml Sodium Chloride (Flush - Normal Saline) 10 ml IVF PRN PRN PRN Reason: Saline Flush Last Admin: 08/07/18 12:32 Dose: 10 ml Sodium Chloride (Normal Saline Pf) 10 ml FS PRN PRN PRN Reason: RECONSTITUTION Last Admin: 08/09/18 07:59 Dose: 10 ml Sodium Chloride (Flush - Normal Saline) 10 ml IVF PRN PRN PRN Reason: Saline Flush Thiamine HCl (Thiamine) 100 mg PO DAILY [facility] Last Admin: 08/11/18 09:43 Dose: 100 mg Tramadol HCl (Ultram) 50 mg PO Q6H PRN PRN Reason: Moderate Pain (4-6) Tramadol HCl (Ultram) 100 mg PO Q6H PRN PRN Reason: Severe Pain (7-10) Last Admin: 08/08/18 10:08 Dose: 100 mg Trazodone HCl (Desyrel) 50 mg PO HSPRN PRN PRN Reason: Insomnia
--- NOTE | 2018-08-11 16:03 | OP ---
DATE OF PROCEDURE: 08/11/2018 PROCEDURES PERFORMED: 1. Esophagogastroduodenoscopy with biopsy. 2. Percutaneous endoscopic gastrostomy tube placement. PREOPERATIVE DIAGNOSES: 1. Protein-calorie malnutrition. 2. Anorexia. 3. History of Crohn disease. DESCRIPTION OF PROCEDURE: Informed consent was obtained from the patient. She was sedated with total intravenous anesthesia. A bite block was placed and the endoscope was advanced easily to the second portion of the duodenum and retroflexion was performed in the stomach. The esophagus was normal. The GE junction was normal. The stomach was normal including retroflexed views. The pylorus and first and second portions of the duodenum were normal. Biopsies were obtained from the second portion of the duodenum to rule out celiac disease. The stomach was fully insufflated. The patient received cefazolin prior to the procedure. The skin was sterilized with chlorhexidine. The skin was anesthetized with 5 mL of 1% lidocaine. A small skin incision was performed with a scalpel. The catheter was placed through the abdominal wall to the stomach easily on one attempt under direct visualization with the endoscope. Prior to that, the site was confirmed with palpation and transillumination. The wire was passed through the catheter and grasped with a snare and pulled out through the patient's mouth. The 20-Khmer gastrostomy tube was then placed by the pull-through technique. The external bumper was placed at 2.5 cm. The patient tolerated the procedure well without immediate complications. IMPRESSION: 1. Normal esophagogastroduodenoscopy. Duodenal biopsies taken to rule out celiac disease. 2. Successful placement of 20-Khmer percutaneous endoscopic gastrostomy tube in the distal body of the stomach. Second-look endoscopy did show the bumper to be in good position. The external bumper was placed at 2.5 cm. RECOMMENDATIONS: 1. Await histopathology. 2. Start feeds in 12 hours. Job ID: [id number]
--- NOTE | 2018-08-11 17:11 | PDOC.GSPN ---
Surgery Progress Note: Subj - Subjective Narrative: Complains of pain at G tube site Surgery Progress Note: Obj - Vital signs Vital signs: Vital Signs - Most Recent Temp Pulse Resp BP Pulse Ox 97.5 F L 90 16 147/81 H 95 08/11/18 14:26 08/11/18 14:26 08/11/18 14:26 08/11/18 14:26 08/11/18 14:26 - Physical Exam General: no distress Respiratory: clear to auscultation Abdomen: soft, appropriately tender Surgery Progress Note: Results - Labs Result Diagrams: 08/11/18 08:17 08/11/18 08:17 Lab results: Laboratory Results - last 24 hr 08/11/18 08/11/18 08/11/18 08:17 08:17 08:17 WBC 11.0 H RBC 2.85 L Hgb 8.4 L Hct 26.1 L MCV 91.5 MCH 29.4 MCHC 32.1 RDW 14.8 H Plt Count 829 H MPV 7.1 L Neutrophils % 70.6 Lymphocytes % 19.9 L Monocytes % 6.5 Eosinophils % 2.5 Basophils % 0.5 Neutrophils # 7.8 H Lymphocytes # 2.2 Monocytes # 0.7 H Eosinophils # 0.3 Basophils # 0.1 Sodium 135 L Potassium 3.9 Chloride 104 Carbon Dioxide 23 Anion Gap 12 BUN 4 L Creatinine 1.21 H Estimated GFR (MDRD) 46 Glucose 91 Calcium 8.2 Phosphorus 3.1 Magnesium 1.1 L Surgery Progress Note: A/P - Problem (1) Mild dehydration Current Visit: No Code(s): E86.0 - DEHYDRATION Status: Acute (2) Intra-abdominal abscess Current Visit: No Code(s): K65.1 - PERITONEAL ABSCESS Status: Chronic - Plan Plan: I am going to be gone will 08/22/18 -Dr. Oconnell will be covering in my absence. -I recommend beginning TF tomorrow and home with home health once tolerating. -ostomy reveral in 6 weeks once deconditioning improved -She must remain on lomotil given high output ileostomy
[2018-08-11] MEDS ORDERED: Sodium Bicarbonate Tab 325 MG TAB PER TUBE PRN (17:35)
[2018-08-11] MEDS ORDERED: Pancrelipase DR 12000 1 CAP FS PRN (17:35)
[2018-08-11] MEDS: Mirtazapine 15 MG TAB PO SCH (20:39)
[2018-08-12] MEDS: Ondansetron ODT 8 MG TAB PO SCH ×4 (00:39→19:18)
[2018-08-12] MEDS: D5 0.9% NS w/ 20 mEq KCl 1,000 ML IV SCH ×3 (00:40→10:24)
[2018-08-12] MEDS: Promethazine HCl 25 MG/ML VIAL IM PRN (03:30)
[2018-08-12] MEDS: Diphenoxylate HCl/Atropine Tablet PO SCH ×4 (03:39→21:22)
[2018-08-12 07:40] LABS: Anion Gap 12 mmol/L (10-20); BUN (Urea Nitrogen) 5 mg/dL (9.8-20.1); Calc. Creatinine Clearance 39 mL/min (70-130); Calcium 7.9 mg/dL (7.8-10.44); Carbon Dioxide 22 mmol/L (22-29); Chloride 110 mmol/L (98-107); Estimated GFR-MDRD 49; Glucose 113 mg/dL (70-105); Potassium 3.8 mmol/L (3.5-5.1); Sodium 140 mmol/L (136-145)
[2018-08-12] MEDS: Enoxaparin Sodium 30 MG/0.3 ML SYRINGE SC SCH (09:40)
[2018-08-12] MEDS: Escitalopram Oxalate 20 mg Tablet PO SCH (09:41)
[2018-08-12] MEDS: Folic Acid 1 MG TAB PO SCH (09:41)
[2018-08-12] MEDS: Pantoprazole 40 MG VIAL IVP SCH (09:41)
[2018-08-12] MEDS: Multivit, Therapeutic 1 TAB PO SCH (09:41)
[2018-08-12] MEDS: Sodium Chloride 0.9% (PF) 10 ML VIAL FS PRN (09:42)
[2018-08-12] MEDS: Thiamine 100 MG TAB PO SCH (09:42)
[2018-08-12] MEDS: Dronabinol 2.5 MG CAP PO SCH ×2 (09:42→15:49)
[2018-08-12] MEDS: traMADol HCl 50 MG TAB PO PRN (10:05)
[2018-08-12] MEDS ORDERED: ISOVUE-370 76%-LOCM 1 ML ONE (12:47)
[2018-08-12] MEDS ORDERED: Iopamidol 370 76% 50 ML VIAL FS ONE (12:47)
--- NOTE | 2018-08-12 13:04 | PRG ---
DATE OF SERVICE: 08/12/2018 SUBJECTIVE: Ms. Kwan complains of pain around her PEG site; however, the site looks clear and she is up, ambulating. She is tolerating her tube feeds without any vomiting. OBJECTIVE: VITAL SIGNS: Temperature is 98.0, pulse 84, blood pressure 156/87. GENERAL: She is in no acute distress. Alert and oriented x3. LUNGS: Clear to auscultation bilaterally. HEART: Regular rate and rhythm without murmur. ABDOMEN: Soft. She has tenderness around the PEG site without guarding. Her bowel sounds are active. EXTREMITIES: No lower extremity edema. The PEG site appears healthy. The external bumper was loosened to 4 cm. IMPRESSION: 1. Protein-calorie malnutrition and anorexia. Her esophagus, stomach, and small bowel all appeared normal endoscopically. The PEG tube was placed easily in good position. She appears to be tolerating her feeds well. 2. Crohn disease without evidence of active disease. 3. Small bowel adenocarcinoma, status post resection. RECOMMENDATIONS: 1. Continue G-tube feeds. 2. Encourage ambulation. She should try to minimize opioid pain medications. Job ID: [id number]
[2018-08-12] MEDS ORDERED: Ibuprofen 200 MG TAB PO SCH (13:30)
--- NOTE | 2018-08-12 14:26 | PDOC.PN ---
- Subjective Encounter Start Date: 08/12/18 Encounter Start Time: 10:00 Subjective: feels better, no nausea -: is tolerating peg feeding - Objective Resuscitation Status - Order Detail: 07/26/18 17:44 Resuscitation Status Routine Resuscitation Status: FULL: Full Resuscitation MAR Reviewed: Yes Vital Signs & Weight: Vital Signs (12 hours) Temp Pulse Resp BP Pulse Ox 08/12/18 08:00 98.0 F 84 12 156/87 H 97 08/12/18 04:00 98.2 F 94 18 148/75 H 94 L Weight Admit Weight 97 lb 1 oz Weight 97 lb 1 oz I&O: 08/11/18 08/12/18 08/13/18 06:59 06:59 06:59 Intake Total 1923 730 30 Output Total 700 1800 Balance 1223 -1070 30 Result Diagrams: 08/11/18 08:17 08/12/18 07:15 Phys Exam - Physical Examination HEENT: PERRLA, moist MMs Neck: no JVD, supple Respiratory: no wheezing, no rales Cardiovascular: RRR, no significant murmur Gastrointestinal: soft, no distention, positive bowel sounds peg+, ileostomy has semisolid stool Musculoskeletal: no edema, pulses present Neurological: non-focal, moves all 4 limbs Psychiatric: normal affect, A&O x 3 Dx/Plan (1) Nausea & vomiting Code(s): R11.2 - NAUSEA WITH VOMITING, UNSPECIFIED Status: Resolved Qualifiers: Vomiting type: unspecified Vomiting Intractability: intractable Qualified Code(s): R11.2 - Nausea with vomiting, unspecified (2) Severe dehydration Code(s): E86.0 - DEHYDRATION Status: Resolved Comment: resolving (3) Hyponatremia Code(s): E87.1 - HYPO-OSMOLALITY AND HYPONATREMIA Status: Resolved (4) RUT (acute kidney injury) Code(s): N17.9 - ACUTE KIDNEY FAILURE, UNSPECIFIED Status: Resolved (5) Metabolic acidosis Code(s): E87.2 - ACIDOSIS Status: Resolved (6) Intra-abdominal abscess Code(s): K65.1 - PERITONEAL ABSCESS Status: Chronic (7) Crohn's disease Code(s): K50.90 - CROHN'S DISEASE, UNSPECIFIED, WITHOUT COMPLICATIONS Status: Chronic Qualifiers: Gastrointestinal tract location: small and large intestine Comment: h/o ileocecectomy for stricture and adenocarcinoma- completely removed with clear margins (8) Depression Code(s): F32.9 - MAJOR DEPRESSIVE DISORDER, SINGLE EPISODE, UNSPECIFIED Status : Chronic Qualifiers: Depression Type: major depressive disorder Active/Remission status: in full remission (9) GERD (gastroesophageal reflux disease) Code(s): K21.9 - GASTRO-ESOPHAGEAL REFLUX DISEASE WITHOUT ESOPHAGITIS Status: Chronic Qualifiers: Esophagitis presence: esophagitis presence not specified Qualified Code(s) : K21.9 - Gastro-esophageal reflux disease without esophagitis - Plan continue peg feeding with free water -: dc plan in am if stable -: motrin liq prn -: on marinol, lomotil -: hemostable * . Review of Systems - Medications/Allergies Allergies/Adverse Reactions: Allergies Allergy/AdvReac Type Severity Reaction Status Date / Time ciprofloxacin [From Cipro] Allergy Verified 07/15/18 23:27 hydrocodone AdvReac Verified 07/17/18 21:52 Medications: Current Medications Acetaminophen (Tylenol) 1,000 mg PO Q6H PRN PRN Reason: Mild Pain (1-3) Last Admin: 08/10/18 20:44 Dose: 1,000 mg Albuterol/Ipratropium (Duoneb) 3 ml NEB [id number] PRN PRN Reason: SOB &/or Wheezing Lipase/Protease/Amylase (Demetrius Agosto [id number]) 1 cap FS .PER PROTOCOL PRN PRN Reason: TUBE OCCLUSION PROTOCOL Diphenoxylate HCl/Atropine (Lomotil) 2 tab PO Q6H [facility] Last Admin: 08/12/18 09:36 Dose: 2 tab Dronabinol (Marinol) 2.5 mg PO BID-AC [facility] Last Admin: 08/12/18 09:42 Dose: 2.5 mg Enoxaparin Sodium (Lovenox) 30 mg SC 0900 [facility] Last Admin: 08/12/18 09:40 Dose: 30 mg Escitalopram Oxalate (Lexapro) 20 mg PO DAILY [facility] Last Admin: 08/12/18 09:41 Dose: 20 mg Folic Acid (Folvite) 1 mg PO DAILY [facility] Last Admin: 08/12/18 09:41 Dose: 1 mg Potassium Chloride/Dextrose/Sod Cl (D5 0.9% Ns W/ 20 Meq Kcl) 1,000 mls @ 100 mls/hr IV .Q10H [facility] Last Admin: 08/12/18 10:24 Dose: Not Given Ibuprofen (Motrin) 400 mg PO NOW [facility] Stop: 08/12/18 15:30 Last Admin: 08/12/18 13:43 Dose: 400 mg Mirtazapine (Remeron) 15 mg PO HS [facility] Last Admin: 08/11/18 20:39 Dose: 15 mg Multivitamins (Theragran) 1 tab PO DAILY [facility] Last Admin: 08/12/18 09:41 Dose: 1 tab Ondansetron HCl (Zofran Odt) 8 mg PO Q6HR [facility] Last Admin: 08/12/18 13:12 Dose: 8 mg Pantoprazole Sodium (Protonix) 40 mg IVP Q12HR [facility] Last Admin: 08/12/18 09:41 Dose: 40 mg Promethazine HCl (Phenergan) 12.5 mg IM Q4H PRN PRN Reason: Nausea/Vomiting Last Admin: 08/12/18 03:30 Dose: 12.5 mg Promethazine HCl (Phenergan Suppository) 25 mg [place] Q6H PRN PRN Reason: Nausea/Vomiting Promethazine HCl (Phenergan) 12.5 mg SLOW IVP Q4H PRN PRN Reason: Nausea Last Admin: 08/07/18 08:55 Dose: 12.5 mg Sodium Bicarbonate (Bicarbonate, Sodium) 650 mg PER TUBE .PER PROTOCOL PRN PRN Reason: ENTERAL TUBE OCCLUSION Sodium Chloride (Flush - Normal Saline) 10 ml IVF Q12HR [facility] Last Admin: 08/12/18 10:24 Dose: Not Given Sodium Chloride (Flush - Normal Saline) 10 ml IVF PRN PRN PRN Reason: Saline Flush Last Admin: 08/07/18 12:32 Dose: 10 ml Sodium Chloride (Normal Saline Pf) 10 ml FS PRN PRN PRN Reason: RECONSTITUTION Last Admin: 08/12/18 09:42 Dose: 10 ml Sodium Chloride (Flush - Normal Saline) 10 ml IVF PRN PRN PRN Reason: Saline Flush Thiamine HCl (Thiamine) 100 mg PO DAILY [facility] Last Admin: 08/12/18 09:42 Dose: 100 mg Tramadol HCl (Ultram) 50 mg PO Q6H PRN PRN Reason: Moderate Pain (4-6) Last Admin: 08/11/18 16:12 Dose: 50 mg Tramadol HCl (Ultram) 100 mg PO Q6H PRN PRN Reason: Severe Pain (7-10) Last Admin: 08/12/18 10:05 Dose: 100 mg Trazodone HCl (Desyrel) 50 mg PO HSPRN PRN PRN Reason: Insomnia
[2018-08-12] MEDS ORDERED: Morphine 4 MG/ML VIAL SLOW IVP SCH ×2 (16:00→20:45)
[2018-08-12] MEDS: Promethazine HCl 25 MG/ML VIAL SLOW IVP PRN (16:07)
[2018-08-12] MEDS ORDERED: Morphine 4 MG/ML VIAL ONE (16:13)
--- NOTE | 2018-08-12 18:55 | CT ---
CT ABDOMEN WITH CONTRAST CT PELVIS WITH CONTRAST: DATE: 08/12/18 at 6:05 p.m. HISTORY: 52-year-old female with pain at gastrostomy site. PEG tube placed yesterday. COMPARISON: 07/26/18. TECHNIQUE: IV injection of iodinated contrast media: 70 mL Isovue 370 Oral contrast media: Isovue injected through PEG tube. FINDINGS: There is a new percutaneous gastrostomy tube. There is a moderate amount of free intraperitoneal air in the ventral superior portion of the abdominal cavity related to recent status of PEG tube placemen t. The enteric contrast material fills the gastric lumen, and has traveled through multiple nondilate d loops of small intestine. No leakage. There is a right lower quadrant ileostomy. The right hemicolo n is absent. The colon begins at the expected location of the proximal transverse colon, where there is a suture line. The rest of the colon, i.e. the transverse, descending, and rectosigmoid, are miladys apsed. Numerous diverticula throughout the descending and sigmoid colon. Small amount of free fluid i n the posterior dependent portion of the pelvic cavity, and some along the left paracolic gutter. Dis tended urinary bladder has normal, thin tavares. No focal lesion involving the liver. There is a new mo derate sized wedge shaped perfusion defect involving the posterior aspect of the right renal lower po le parenchyma, measuring approximately 10.5 x 1.5 x 3 cm. This has heterogeneously low attenuation, a nd has the appearance of an infarction. No hydronephrosis. The left kidney is normal. No abdominal ao rtic aneurysm. Normal adrenals, pancreas and spleen. Within the peritoneal cavity just deep to the right ileostomy (posterior and lateral to it), the prev iously demonstrated complex fluid collection, has grown to current dimensions of approximately 4 x 3 x 4 cm. The superior edge of this mass is connected to a short tubular structure that had the appeara nce of a blind end of a loop of bowel. Exact etiology is uncertain. IMPRESSION: 1. Interval placement of percutaneous gastrostomy tube. 2. No evidence of leakage of enteric contents. 3. New finding of infarction of right kidney, lower pole. 4. Status post right hemicolectomy, and ileostomy. 5. The intraperitoneal fluid collection just deep to the ileostomy, which appears to be attached to a short blind ended loop of bowel, has grown in size since 07/26/18. Exact etiology is uncertain. 6. Pneumoperitoneum is attributable to the recent status of the percutaneous gastrostomy tube marilou brunner. REINIER Velazquez POS: JIN
[2018-08-12] MEDS: Mirtazapine 15 MG TAB PO SCH (21:22)
[2018-08-12] MEDS ORDERED: Promethazine HCl 12.5 MG in Sodium Chloride 0.9% 50 ML IVPB PRN (21:28)
[2018-08-13] MEDS: Morphine 4 MG/ML VIAL SLOW IVP PRN (01:18)
[2018-08-13] MEDS: Ondansetron ODT 8 MG TAB PO SCH ×5 (01:21→23:52)
[2018-08-13] MEDS: Diphenoxylate HCl/Atropine Tablet PO SCH ×4 (01:45→20:59)
[2018-08-13] MEDS: traMADol HCl 50 MG TAB PO PRN ×2 (06:47→21:03)
[2018-08-13 08:23] LABS: Anion Gap 12 mmol/L (10-20); BUN (Urea Nitrogen) 8 mg/dL (9.8-20.1); Calc. Creatinine Clearance 46 mL/min (70-130); Carbon Dioxide 24 mmol/L (22-29); Chloride 102 mmol/L (98-107); Estimated GFR-MDRD 59; Glucose 108 mg/dL (70-105); Potassium 3.9 mmol/L (3.5-5.1); Sodium 134 mmol/L (136-145)
[2018-08-13] MEDS: Acetaminophen 500 MG TAB PO PRN (09:53)
[2018-08-13] MEDS: Aspirin Chewable 81 MG TAB PO SCH (09:54)
[2018-08-13] MEDS: Enoxaparin Sodium 30 MG/0.3 ML SYRINGE SC SCH (09:54)
[2018-08-13] MEDS: Dronabinol 2.5 MG CAP PO SCH ×2 (09:54→17:06)
[2018-08-13] MEDS: Escitalopram Oxalate 20 mg Tablet PO SCH (09:54)
[2018-08-13] MEDS: Folic Acid 1 MG TAB PO SCH (09:54)
[2018-08-13] MEDS: Thiamine 100 MG TAB PO SCH (09:54)
[2018-08-13] MEDS: Multivit, Therapeutic 1 TAB PO SCH (09:54)
--- NOTE | 2018-08-13 15:53 | PDOC.PN ---
- Subjective Encounter Start Date: 08/13/18 Encounter Start Time: 12:00 Subjective: c/o abd pain to the left of her peg, no nausea - Objective Resuscitation Status - Order Detail: 07/26/18 17:44 Resuscitation Status Routine Resuscitation Status: FULL: Full Resuscitation MAR Reviewed: Yes Vital Signs & Weight: Vital Signs (12 hours) Temp Pulse Resp BP BP Pulse Ox 08/13/18 08:00 98 08/13/18 07:38 98.0 F 103 H 14 127/79 08/13/18 04:00 99.4 F 108 H 18 126/62 98 Weight Admit Weight 97 lb 1 oz Weight 97 lb 1 oz I&O: 08/12/18 08/13/18 08/14/18 06:59 06:59 07:59 Intake Total 730 2440 Output Total 1800 930 800 Balance -1070 1510 -800 Result Diagrams: 08/11/18 08:17 08/13/18 07:43 Phys Exam - Physical Examination HEENT: PERRLA, moist MMs Neck: no JVD, supple Respiratory: no wheezing, no rales Cardiovascular: RRR, no significant murmur Gastrointestinal: soft, no distention, positive bowel sounds peg+, no rigidity or guarding, ileostomy has stools+ Musculoskeletal: no edema, pulses present Neurological: non-focal, moves all 4 limbs Psychiatric: A&O x 3 Dx/Plan (1) Nausea & vomiting Code(s): R11.2 - NAUSEA WITH VOMITING, UNSPECIFIED Status: Resolved Qualifiers: Vomiting type: unspecified Vomiting Intractability: intractable Qualified Code(s): R11.2 - Nausea with vomiting, unspecified (2) Severe dehydration Code(s): E86.0 - DEHYDRATION Status: Resolved Comment: resolving (3) Hyponatremia Code(s): E87.1 - HYPO-OSMOLALITY AND HYPONATREMIA Status: Resolved (4) RUT (acute kidney injury) Code(s): N17.9 - ACUTE KIDNEY FAILURE, UNSPECIFIED Status: Resolved (5) Metabolic acidosis Code(s): E87.2 - ACIDOSIS Status: Resolved (6) Intra-abdominal abscess Code(s): K65.1 - PERITONEAL ABSCESS Status: Chronic (7) Crohn's disease Code(s): K50.90 - CROHN'S DISEASE, UNSPECIFIED, WITHOUT COMPLICATIONS Status: Chronic Qualifiers: Gastrointestinal tract location: small and large intestine Comment: h/o ileocecectomy for stricture and adenocarcinoma- completely removed with clear margins (8) Depression Code(s): F32.9 - MAJOR DEPRESSIVE DISORDER, SINGLE EPISODE, UNSPECIFIED Status : Chronic Qualifiers: Depression Type: major depressive disorder Active/Remission status: in full remission (9) GERD (gastroesophageal reflux disease) Code(s): K21.9 - GASTRO-ESOPHAGEAL REFLUX DISEASE WITHOUT ESOPHAGITIS Status: Chronic Qualifiers: Esophagitis presence: esophagitis presence not specified Qualified Code(s) : K21.9 - Gastro-esophageal reflux disease without esophagitis - Plan tolerating peg feeding -: CT abd shows right renal infarct, unclear etiology, will add aspirin -: is on marinol, remeron, lexapro, lomotil -: hemostable -: dc plan per GI/gen surg adv * . Review of Systems - Medications/Allergies Allergies/Adverse Reactions: Allergies Allergy/AdvReac Type Severity Reaction Status Date / Time ciprofloxacin [From Cipro] Allergy Verified 07/15/18 23:27 hydrocodone AdvReac Verified 07/17/18 21:52 Medications: Current Medications Acetaminophen (Tylenol) 1,000 mg PO Q6H PRN PRN Reason: Mild Pain (1-3) Last Admin: 08/13/18 09:53 Dose: 1,000 mg Albuterol/Ipratropium (Duoneb) 3 ml NEB [id number] PRN PRN Reason: SOB &/or Wheezing Lipase/Protease/Amylase (Demetrius Agosto [id number]) 1 cap FS .PER PROTOCOL PRN PRN Reason: TUBE OCCLUSION PROTOCOL Aspirin (Aspirin Chewable) 81 mg PO DAILY [facility] Last Admin: 08/13/18 09:54 Dose: 81 mg Diphenoxylate HCl/Atropine (Lomotil) 2 tab PO Q6H [facility] Last Admin: 08/13/18 14:40 Dose: 2 tab Dronabinol (Marinol) 2.5 mg PO BID-AC [facility] Last Admin: 08/13/18 09:54 Dose: 2.5 mg Enoxaparin Sodium (Lovenox) 30 mg SC 0900 [facility] Last Admin: 08/13/18 09:54 Dose: 30 mg Escitalopram Oxalate (Lexapro) 20 mg PO DAILY [facility] Last Admin: 08/13/18 09:54 Dose: 20 mg Folic Acid (Folvite) 1 mg PO DAILY [facility] Last Admin: 08/13/18 09:54 Dose: 1 mg Promethazine HCl 12.5 mg/ (Sodium Chloride) 50.5 mls @ 101 mls/hr IVPB Q4H PRN PRN Reason: Nausea Last Admin: 08/12/18 22:41 Dose: 50.5 mls Mirtazapine (Remeron) 15 mg PO HS [facility] Last Admin: 08/12/18 21:22 Dose: 15 mg Morphine Sulfate (Morphine) 4 mg SLOW IVP Q4H PRN PRN Reason: Pain Last Admin: 08/13/18 01:18 Dose: 4 mg Multivitamins (Theragran) 1 tab PO DAILY [facility] Last Admin: 08/13/18 09:54 Dose: 1 tab Ondansetron HCl (Zofran Odt) 8 mg PO Q6HR [facility] Last Admin: 08/13/18 12:00 Dose: 8 mg Promethazine HCl (Phenergan) 12.5 mg IM Q4H PRN PRN Reason: Nausea/Vomiting Last Admin: 08/12/18 03:30 Dose: 12.5 mg Promethazine HCl (Phenergan Suppository) 25 mg AL Q6H PRN PRN Reason: Nausea/Vomiting Sodium Bicarbonate (Bicarbonate, Sodium) 650 mg PER TUBE .PER PROTOCOL PRN PRN Reason: ENTERAL TUBE OCCLUSION Sodium Chloride (Flush - Normal Saline) 10 ml IVF Q12HR [facility] Last Admin: 08/13/18 09:55 Dose: 10 ml Sodium Chloride (Flush - Normal Saline) 10 ml IVF PRN PRN PRN Reason: Saline Flush Last Admin: 08/07/18 12:32 Dose: 10 ml Sodium Chloride (Flush - Normal Saline) 10 ml IVF PRN PRN PRN Reason: Saline Flush Thiamine HCl (Thiamine) 100 mg PO DAILY [facility] Last Admin: 08/13/18 09:54 Dose: 100 mg Tramadol HCl (Ultram) 50 mg PO Q6H PRN PRN Reason: Moderate Pain (4-6) Last Admin: 08/11/18 16:12 Dose: 50 mg Tramadol HCl (Ultram) 100 mg PO Q6H PRN PRN Reason: Severe Pain (7-10) Last Admin: 08/13/18 06:47 Dose: 100 mg Trazodone HCl (Desyrel) 50 mg PO HSPRN PRN PRN Reason: Insomnia
[2018-08-13] MEDS: Mirtazapine 15 MG TAB PO SCH (20:59)
[2018-08-14] MEDS: Promethazine HCl 25 MG/ML VIAL IM PRN (00:08)
[2018-08-14] MEDS: Diphenoxylate HCl/Atropine Tablet PO SCH ×4 (01:54→20:20)
[2018-08-14] MEDS: Ondansetron ODT 8 MG TAB PO SCH ×4 (05:18→23:37)
[2018-08-14] MEDS: Morphine 4 MG/ML VIAL SLOW IVP PRN (05:25)
[2018-08-14 06:45] LABS: Anion Gap 10 mmol/L (10-20); BUN (Urea Nitrogen) 11 mg/dL (9.8-20.1); Calc. Creatinine Clearance 50 mL/min (70-130); Calcium 7.8 mg/dL (7.8-10.44); Carbon Dioxide 27 mmol/L (22-29); Chloride 97 mmol/L (98-107); Estimated GFR-MDRD 66; Glucose 90 mg/dL (70-105); Potassium 3.2 mmol/L (3.5-5.1); Sodium 131 mmol/L (136-145)
[2018-08-14] MEDS: Thiamine 100 MG TAB PO SCH (08:30)
[2018-08-14] MEDS: Folic Acid 1 MG TAB PO SCH (08:30)
[2018-08-14] MEDS: Aspirin Chewable 81 MG TAB PO SCH (08:30)
[2018-08-14] MEDS: Enoxaparin Sodium 30 MG/0.3 ML SYRINGE SC SCH (08:30)
[2018-08-14] MEDS: Dronabinol 2.5 MG CAP PO SCH ×2 (08:30→17:39)
[2018-08-14] MEDS: Multivit, Therapeutic 1 TAB PO SCH (08:30)
[2018-08-14] MEDS: Escitalopram Oxalate 20 mg Tablet PO SCH (08:30)
[2018-08-14] MEDS: traMADol HCl 50 MG TAB PO PRN ×2 (12:15→20:24)
--- NOTE | 2018-08-14 15:22 | PDOC.PN ---
- Subjective Encounter Start Date: 08/14/18 Encounter Start Time: 13:00 Subjective: no new complaints -: tolerating peg feeding - Objective Resuscitation Status - Order Detail: 07/26/18 17:44 Resuscitation Status Routine Resuscitation Status: FULL: Full Resuscitation MAR Reviewed: Yes Vital Signs & Weight: Vital Signs (12 hours) Temp Pulse Resp BP Pulse Ox 08/14/18 07:52 98.2 F 89 16 113/69 95 Weight Admit Weight 97 lb 1 oz Weight 97 lb 1 oz I&O: 08/13/18 08/14/18 08/15/18 05:59 06:59 06:59 Intake Total 595 Output Total 250 Balance 345 Result Diagrams: 08/11/18 08:17 08/14/18 05:45 Phys Exam - Physical Examination HEENT: PERRLA, moist MMs Neck: no JVD, supple Respiratory: no wheezing, no rales Cardiovascular: RRR, no significant murmur Gastrointestinal: soft, no distention, positive bowel sounds peg+, ileostomy+ Musculoskeletal: no edema, pulses present Neurological: non-focal, moves all 4 limbs Psychiatric: normal affect, A&O x 3 Dx/Plan (1) Nausea & vomiting Code(s): R11.2 - NAUSEA WITH VOMITING, UNSPECIFIED Status: Resolved Qualifiers: Vomiting type: unspecified Vomiting Intractability: intractable Qualified Code(s): R11.2 - Nausea with vomiting, unspecified (2) Severe dehydration Code(s): E86.0 - DEHYDRATION Status: Resolved Comment: resolving (3) Hyponatremia Code(s): E87.1 - HYPO-OSMOLALITY AND HYPONATREMIA Status: Resolved (4) RUT (acute kidney injury) Code(s): N17.9 - ACUTE KIDNEY FAILURE, UNSPECIFIED Status: Resolved (5) Metabolic acidosis Code(s): E87.2 - ACIDOSIS Status: Resolved (6) Intra-abdominal abscess Code(s): K65.1 - PERITONEAL ABSCESS Status: Chronic (7) Crohn's disease Code(s): K50.90 - CROHN'S DISEASE, UNSPECIFIED, WITHOUT COMPLICATIONS Status: Chronic Qualifiers: Gastrointestinal tract location: small and large intestine Comment: h/o ileocecectomy for stricture and adenocarcinoma- completely removed with clear margins (8) Depression Code(s): F32.9 - MAJOR DEPRESSIVE DISORDER, SINGLE EPISODE, UNSPECIFIED Status : Chronic Qualifiers: Depression Type: major depressive disorder Active/Remission status: in full remission (9) GERD (gastroesophageal reflux disease) Code(s): K21.9 - GASTRO-ESOPHAGEAL REFLUX DISEASE WITHOUT ESOPHAGITIS Status: Chronic Qualifiers: Esophagitis presence: esophagitis presence not specified Qualified Code(s) : K21.9 - Gastro-esophageal reflux disease without esophagitis - Plan is tolerating peg feeding -: cm for help with peg feeds on discharge -: dc plan in am if above is arranged -: ileostomy has semisolid stools after peg feeds are initiated -: continue marinol, remeron and lomotil * . Review of Systems - Medications/Allergies Allergies/Adverse Reactions: Allergies Allergy/AdvReac Type Severity Reaction Status Date / Time ciprofloxacin [From Cipro] Allergy Verified 07/15/18 23:27 hydrocodone AdvReac Verified 07/17/18 21:52 Medications: Current Medications Acetaminophen (Tylenol) 1,000 mg PO Q6H PRN PRN Reason: Mild Pain (1-3) Last Admin: 08/13/18 09:53 Dose: 1,000 mg Albuterol/Ipratropium (Duoneb) 3 ml NEB [id number] PRN PRN Reason: SOB &/or Wheezing Lipase/Protease/Amylase (Demetrius Agosto [id number]) 1 cap FS .PER PROTOCOL PRN PRN Reason: TUBE OCCLUSION PROTOCOL Aspirin (Aspirin Chewable) 81 mg PO DAILY [facility] Last Admin: 08/14/18 08:30 Dose: 81 mg Diphenoxylate HCl/Atropine (Lomotil) 2 tab PO Q6H [facility] Last Admin: 08/14/18 08:35 Dose: 2 tab Dronabinol (Marinol) 2.5 mg PO BID-AC [facility] Last Admin: 08/14/18 08:30 Dose: 2.5 mg Enoxaparin Sodium (Lovenox) 30 mg SC 0900 [facility] Last Admin: 08/14/18 08:30 Dose: 30 mg Escitalopram Oxalate (Lexapro) 20 mg PO DAILY [facility] Last Admin: 08/14/18 08:30 Dose: 20 mg Folic Acid (Folvite) 1 mg PO DAILY [facility] Last Admin: 08/14/18 08:30 Dose: 1 mg Promethazine HCl 12.5 mg/ (Sodium Chloride) 50.5 mls @ 101 mls/hr IVPB Q4H PRN PRN Reason: Nausea Last Admin: 08/12/18 22:41 Dose: 50.5 mls Mirtazapine (Remeron) 15 mg PO HS [facility] Last Admin: 08/13/18 20:59 Dose: 15 mg Morphine Sulfate (Morphine) 4 mg SLOW IVP Q4H PRN PRN Reason: Pain Last Admin: 08/14/18 05:25 Dose: 4 mg Multivitamins (Theragran) 1 tab PO DAILY [facility] Last Admin: 08/14/18 08:30 Dose: 1 tab Ondansetron HCl (Zofran Odt) 8 mg PO Q6HR [facility] Last Admin: 08/14/18 12:15 Dose: 8 mg Promethazine HCl (Phenergan) 12.5 mg IM Q4H PRN PRN Reason: Nausea/Vomiting Last Admin: 08/14/18 00:08 Dose: 12.5 mg Promethazine HCl (Phenergan Suppository) 25 mg AR Q6H PRN PRN Reason: Nausea/Vomiting Sodium Bicarbonate (Bicarbonate, Sodium) 650 mg PER TUBE .PER PROTOCOL PRN PRN Reason: ENTERAL TUBE OCCLUSION Sodium Chloride (Flush - Normal Saline) 10 ml IVF Q12HR [facility] Last Admin: 08/14/18 08:35 Dose: 10 ml Sodium Chloride (Flush - Normal Saline) 10 ml IVF PRN PRN PRN Reason: Saline Flush Last Admin: 08/07/18 12:32 Dose: 10 ml Sodium Chloride (Flush - Normal Saline) 10 ml IVF PRN PRN PRN Reason: Saline Flush Thiamine HCl (Thiamine) 100 mg PO DAILY [facility] Last Admin: 08/14/18 08:30 Dose: 100 mg Tramadol HCl (Ultram) 50 mg PO Q6H PRN PRN Reason: Moderate Pain (4-6) Last Admin: 08/11/18 16:12 Dose: 50 mg Tramadol HCl (Ultram) 100 mg PO Q6H PRN PRN Reason: Severe Pain (7-10) Last Admin: 08/14/18 12:15 Dose: 100 mg Trazodone HCl (Desyrel) 50 mg PO HSPRN PRN PRN Reason: Insomnia
[2018-08-14] MEDS: Mirtazapine 15 MG TAB PO SCH (20:20)
[2018-08-15] MEDS: Diphenoxylate HCl/Atropine Tablet PO SCH ×4 (02:09→20:43)
--- NOTE | 2018-08-15 06:17 | PRG ---
DATE OF SERVICE: 08/13/2018 This is a cross coverage for Dr. Antoine Cespedes. SUBJECTIVE: This is a 52-year-old female, with Crohn's disease, status post surgery for ileal carcinoma. Subsequently anastomotic leak. She has an ileostomy. The patient appears very comfortable. She is not having any abdominal pain or nausea. She is actually feeling better today. She is able to drink liquids and keeping it down. She is also tolerating tube feeding well. She offers no complaints. PHYSICAL EXAMINATION: VITAL SIGNS: Afebrile, pulse is 103, blood pressure 127/79. HEENT: Conjunctivae clear. CARDIOVASCULAR: First and second heart sounds. LUNGS: Clear to auscultation. ABDOMEN: She has an ileostomy in the right lower quadrant. There is also midline scar from previous surgery. Soft and nontender. Bowel sounds are active. RECOMMENDATION: Continue tube feeding. Encourage p.o. intake as much as possible. Job ID: [id number]
[2018-08-15] MEDS: Ondansetron ODT 8 MG TAB PO SCH ×3 (06:28→16:31)
[2018-08-15] MEDS: Dronabinol 2.5 MG CAP PO SCH ×2 (06:30→16:30)
[2018-08-15 09:36] LABS: Anion Gap 10 mmol/L (10-20); BUN (Urea Nitrogen) 14 mg/dL (9.8-20.1); Calc. Creatinine Clearance 53 mL/min (70-130); Calcium 7.9 mg/dL (7.8-10.44); Carbon Dioxide 28 mmol/L (22-29); Chloride 98 mmol/L (98-107); Estimated GFR-MDRD 70; Glucose 118 mg/dL (70-105); Potassium 3.4 mmol/L (3.5-5.1); Sodium 133 mmol/L (136-145)
[2018-08-15] MEDS: Thiamine 100 MG TAB PO SCH (09:47)
[2018-08-15] MEDS: Multivit, Therapeutic 1 TAB PO SCH (09:47)
[2018-08-15] MEDS: Aspirin Chewable 81 MG TAB PO SCH (09:47)
[2018-08-15] MEDS: Enoxaparin Sodium 30 MG/0.3 ML SYRINGE SC SCH (09:47)
[2018-08-15] MEDS: Escitalopram Oxalate 20 mg Tablet PO SCH (09:47)
[2018-08-15] MEDS: Folic Acid 1 MG TAB PO SCH (09:47)
--- NOTE | 2018-08-15 10:15 | PRG ---
DATE OF SERVICE: 08/14/2018 SUBJECTIVE: Ms. Brigida Kwan is a very pleasant 52-year-old female, who has undergone ileal resection for adenocarcinoma. Subsequently, she developed postoperative leak and depression and not eating well and not drinking enough fluids. She has had chronic nausea and also abdominal pain. She had PEG tube placement done a couple of days ago and she is doing very well from feeding standpoint. She is tolerating tube feeding. Yesterday, she was also drinking plenty of liquids. The patient has had no abdominal pain, nausea, or vomiting today. Apparently, she complained of abdominal pain and had abdominal CAT scan. The CAT scan shows some fluid collection in the right lower quadrant and also a small right infarct. However, pain is more on the left side and the renal infarct is on the right side. Initially, feeling whole lot better today. PHYSICAL EXAMINATION: VITAL SIGNS: Appears comfortable, afebrile, pulse is 89, blood pressure 113/97. CARDIOVASCULAR: First and second heart sounds are normal. LUNGS: Clear to auscultation. ABDOMEN: Soft. Abdomen is nondistended. appears very healthy. RECOMMENDATIONS: 1. Encourage p.o. intake. 2. Continue tube feeding. Hopefully, the patient can be discharged home in the next 5 days as she seems to be doing much better in the last 5 days. Job ID: [id number]
[2018-08-15] MEDS: Mirtazapine 15 MG TAB PO SCH (20:43)
[2018-08-16] MEDS: Ondansetron ODT 8 MG TAB PO SCH ×4 (01:41→12:14)
[2018-08-16] MEDS: Diphenoxylate HCl/Atropine Tablet PO SCH ×3 (01:51→14:02)
[2018-08-16 06:47] LABS: Anion Gap 12 mmol/L (10-20); BUN (Urea Nitrogen) 10 mg/dL (9.8-20.1); Calc. Creatinine Clearance 51 mL/min (70-130); Calcium 8.2 mg/dL (7.8-10.44); Carbon Dioxide 28 mmol/L (22-29); Chloride 98 mmol/L (98-107); Estimated GFR-MDRD 68; Glucose 141 mg/dL (70-105); Potassium 3.3 mmol/L (3.5-5.1); Sodium 135 mmol/L (136-145)
[2018-08-16] MEDS: Dronabinol 2.5 MG CAP PO SCH (07:58)
[2018-08-16] MEDS: Escitalopram Oxalate 20 mg Tablet PO SCH (08:52)
[2018-08-16] MEDS: Thiamine 100 MG TAB PO SCH (08:52)
[2018-08-16] MEDS: Aspirin Chewable 81 MG TAB PO SCH (08:52)
[2018-08-16] MEDS: Multivit, Therapeutic 1 TAB PO SCH (08:52)
[2018-08-16] MEDS: Folic Acid 1 MG TAB PO SCH (08:53)
[2018-08-16] MEDS: Enoxaparin Sodium 30 MG/0.3 ML SYRINGE SC SCH (08:53)
[2018-08-16 15:45] VITALS: BP 135/80; TEMP 98.3
--- NOTE | 2018-08-17 10:46 | DIS ---
DATE OF ADMISSION: 07/26/2018 DATE OF DISCHARGE: 08/16/2018 ADMISSION DIAGNOSES: 1. Nausea and vomiting. 2. Hyponatremia. 3. Acute kidney injury. 4. Hyperkalemia. 5. Colon adenocarcinoma, status post resection. 6. Status post abdominal wound dehiscence with wound VAC. 7. Thrombocytosis. DISCHARGE DIAGNOSES: 1. Nausea and vomiting. 2. Hyponatremia. 3. Acute kidney injury. 4. Hyperkalemia. 5. Colon adenocarcinoma, status post resection. 6. Status post abdominal wound dehiscence with wound VAC. 7. Thrombocytosis. 8. Malnutrition. HISTORY OF PRESENT ILLNESS: Ms. Brigida Kwan is a very pleasant 52-year-old female, who was admitted for significant nausea and vomiting, status post ileal resection for adenocarcinoma, status post postoperative leak and depression, not really eating well and not drinking enough fluids. The patient since her surgery is following the diagnosis of adenocarcinoma and has been having significant nausea and abdominal pain. She has a PEG tube placement done during this admission and was started on the PEG tube feeds with continued hydration. With the hydration and PEG tube feeds, the patient started feeling better, was tolerating the feeds well and then she was discharged for an outpatient followup with GI and also surgery with bolus PEG feeds and home health. DISCHARGE INSTRUCTIONS: 1. Please continue with bolus PEG feeds. 2. Please follow up with the surgery and also GI. 3. Please follow a good exercise. 4. Take medications as prescribed. Job ID: [id number]
== END 2018-08-16 16:57 | disposition home health service (06) | DRG 682 ==
LOC: ERS 11:29 → ERHOLD 14:17 → T4-B 18:49
PROVIDERS: ADMIT Family Medicine; ATTEND Family Medicine
PROC: 0DB98ZX Excision of Duodenum, Via Natural or Artificial Opening Endoscopic, Diagnostic (ICD-10-PCS; principal; 2018-08-11)
PROC: 0DH63UZ Insertion of Feeding Device into Stomach, Percutaneous Approach (ICD-10-PCS; 2018-08-11)
DX: N17.9 Acute kidney failure, unspecified (principal); K65.1 Peritoneal abscess; E44.0 Moderate protein-calorie malnutrition; Z68.1 Body mass index [BMI] 19.9 or less, adult; C17.2 Malignant neoplasm of ileum; E87.1 Hypo-osmolality and hyponatremia; E87.2 Acidosis; K50.90 Crohn's disease, unspecified, without complications; E86.0 Dehydration; F17.210 Nicotine dependence, cigarettes, uncomplicated; E87.5 Hyperkalemia; R11.2 Nausea with vomiting, unspecified; E87.6 Hypokalemia; E83.42 Hypomagnesemia; J44.9 Chronic obstructive pulmonary disease, unspecified; K21.9 Gastro-esophageal reflux disease without esophagitis; F32.9 Major depressive disorder, single episode, unspecified; Z87.19 Personal history of other diseases of the digestive system; Z88.5 Allergy status to narcotic agent; Z88.1 Allergy status to other antibiotic agents; Z79.899 Other long term (current) drug therapy; Z93.2 Ileostomy status
CPT/HCPCS: 36415; 70450; 71275; 74177; 80048; 80053; 80400; 81001; 82607; 82746; 83630; 83735; 84100; 84134; 85007; 85025; 85027; 85652; 86140; 87040; 87324; 87449; 88305; 93005; 96361; 96374; 96375; 96376; C9113; J0834; J1650; J2001; J2270; J2405; J2550; J2704; J2765; J3475; J3480; J7050; Q0167; Q9966; Q9967; S0028

== ENCOUNTER 2018-08-19 18:01 | Inpatient (IN) | payer BC ==
[2018-08-19 20:01] LABS: Hemoglobin 9.8 g/dL (12.0-16.0); Mean Corpuscular HGB CONC 33.4 g/dL (32.0-36.0); Mean Corpuscular Hemoglobin 30.4 pg (27.0-31.0); Mean Corpuscular Volume 90.9 fL (78.0-98.0); Mean Platelet Volume 6.6 fL (7.4-10.4); Platelet Count 1602 thou/uL (130-400); RBC Distribution Width 16.3 % (11.5-14.5); Red Blood Cell (RBC) Count 3.24 mill/uL (4.20-5.40)
[2018-08-19 20:08] LABS: Band 5 % (5-11); Eosinophils 1 % (0-10); Large Platelets SLIGHT; Lymphocytes 22 % (21-51); MDiff Complete? YES; Monocytes 5 % (0-10); Neutrophil 67 % (42-75); Platelet Morphology Comment Appears Increased
[2018-08-19 20:15] LABS: ALT (SGPT) 61 U/L (8-55); AST (SGOT) 75 U/L (5-34); Albumin 3.4 g/dL (3.5-5.0); Alkaline Phosphatase 407 U/L (40-150); Anion Gap 14 mmol/L (10-20); BUN (Urea Nitrogen) 24 mg/dL (9.8-20.1); Bilirubin, Total 0.2 mg/dL (0.2-1.2); Calc. Creatinine Clearance 0 mL/min (70-130); Carbon Dioxide 30 mmol/L (22-29); Chloride 87 mmol/L (98-107); Estimated GFR-MDRD 44; Globulin 4.8 g/dL (2.4-3.5); Glucose 108 mg/dL (70-105); Potassium 4.8 mmol/L (3.5-5.1); Protein, Total 8.2 g/dL (6.0-8.3); Sodium 126 mmol/L (136-145)
[2018-08-19] MEDS ORDERED: Piperacillin/Tazobactam 4.5 GM in Sodium Chloride 0.9% 100 ML IVPB SCH (21:30)
--- NOTE | 2018-08-19 21:36 | RAD ---
TWO VIEWS CHEST: 08/19/18 HISTORY: Elevated white blood cell count. Patient had a feeding tube on Wednesday. Recently discharged from [facility]. PA and lateral views of the chest is obtained on 08/19/18. Comparison made to a previous exam from 12/05/09. PA and lateral views of the chest demonstrates a gastrostomy tube in place. The lungs are well aerated. No evidence of active intrathoracic disease seen. No evidence of effusion s, pneumonia or pneumothorax seen. IMPRESSION: Unremarkable two views chest. POS: [facility]
[2018-08-20] MEDS ORDERED: Acetaminophen 325 MG TAB PO PRN (01:08)
[2018-08-20] MEDS ORDERED: traZODone HCl 50 MG TAB PO PRN (01:13)
[2018-08-20] MEDS ORDERED: Diphenoxylate HCl/Atropine Tablet PO SCH (01:30)
[2018-08-20] MEDS: Sodium Chloride 0.9% 1,000 ML IV SCH ×2 (01:58→12:04)
--- NOTE | 2018-08-20 02:56 | HP ---
CHIEF COMPLAINT: Abnormal labs. HISTORY OF PRESENT ILLNESS: This patient is a 52-year-old female with a history of Crohn disease who unfortunately developed a stricture near the ileocecal junction and underwent ileocecectomy in early June. The patient's pathology did show some early cancer cells T1 N0. She subsequently because of some cough dehisced her wound, had to come back and have a washout with a diverting ileostomy. Unfortunately, after that she developed an intraabdominal abscess requiring readmission with the percutaneous CT drainage and a prolonged course of IV antibiotics. It appears that she had some fungal bacteremia possibly related to an infected PICC line, which was ultimately treated and the patient was just discharged home on the . The patient also had a prior PEG tube placed because she simply could not tolerate the eating, had no appetite and she describes it "hates food." The patient was in followup today and saw her primary care physician and had labs obtained. She was called by her PCP and told that her white count was very elevated and that she needed to return to the emergency department. The patient reports that she is still not taking a great deal of p.o., but she is getting the PEG feeds and she is flushing pre and post with free water, but she has a significant amount of liquid output from the ileostomy. The patient reports that she is otherwise fatigued, but had no other specific complaints. She denies fever or any other symptoms that might account for an infection. She does report that when she went home, she was having some sweats and then would get cold, but did not specifically know of any fever. REVIEW OF SYSTEMS: All other systems were reviewed and all pertinent positives and negatives noted in the history of present illness. PAST MEDICAL HISTORY: As noted above, significant for the Crohn disease with some adenocarcinoma noted in the terminal ileum, which was a T1 N0, the abdominal abscess, and wound dehiscence. PAST SURGICAL HISTORY: Cholecystectomy, ileocecectomy, diverting ileostomy and CT-guided intraabdominal abscess. FAMILY HISTORY: Positive for cancer in her parents. SOCIAL HISTORY: The patient was a smoker and continued to smoke after her initial surgery, but has subsequently stopped. Denies alcohol or drugs. The patient is , lives with her in [place]. She is a DNI, but otherwise would like resuscitative measures. Her would be her surrogate decision maker. ALLERGIES: CIPRO, HYDROCODONE. CURRENT MEDICATIONS: 1. Lomotil p.r.n. 2. Aspirin 81 daily. 3. Lexapro 20 mg daily. 4. Marinol 2.5 mg b.i.d. 5. Folic acid one p.o. daily. 6. Zofran p.r.n. 7. Multivitamin one daily. 8. DuoNeb q.6 hours p.r.n. 9. Potassium 10 mEq b.i.d. 10. Protonix 40 daily. 11. Trazodone 50 mg at bedtime. 12. Tramadol 1-2 q.6 hours p.r.n. PHYSICAL EXAMINATION: VITAL SIGNS: Temperature is 98, pulse 110, respirations 18, O2 saturation 98% on room air, BP 128/81. GENERAL APPEARANCE: Slightly older than stated age appearing female, in no major distress. She is awake, alert, oriented, very pleasant. HEENT: PERRL. No OP lesions. NECK: Supple and symmetric. HEART: Regular rate and rhythm without murmurs, gallops, or rubs. LUNGS: Clear to auscultation bilaterally with good chest wall expansion and air exchange. ABDOMEN: Soft, nontender, and nondistended. She has a right-sided ileostomy tube with liquid stools. She has a healing midline incision which is healing with secondary intention, primarily at the lower aspect. There is some mucoid tissue at the base, but no erythema. No drainage. To speak of, her PEG site actually looks pretty healthy without evidence of cellulitis or infection. EXTREMITIES: She has no cyanosis, clubbing, or edema. NEUROLOGIC: She appears to be grossly intact with no focal deficits. LABORATORY DATA: White count 27.0, hemoglobin 9.8, platelets 1,600,000. Sodium 126, potassium 4.8, chloride 87, CO2 of 13, BUN 24, creatinine is 1.27, glucose 108, calcium 10.0, AST 75, ALT 61, alkaline phosphatase 407. Chest x-ray negative. IMPRESSION AND PLAN: 1. Leukocytosis of unclear etiology. Given the patient's significant recent past, the patient was placed in the hospital and started on IV Zosyn. We will hydrate and recheck. May need ID consult and surgery followup, although at this point, it does not appear that her wounds are specifically infected. 2. Hyponatremia, may be due to some dehydration given her renal indices. We will give some fluids and re-evaluate. 3. Prerenal azotemia. Slight elevation of her BUN over her most recent levels. She is largely dependent on PEG feeds with free water flushes. We will give her some IV fluids tonight. We will ask the dietitian to reassess as well. Giving her diverting ileostomy, she is losing a fair amount of fluids through that. 4. Elevated liver enzymes. The patient had elevated enzymes previously. She did have a CT scan done previously without significant hepatic findings other than fatty infiltration. We will recheck those values with some rehydration as well. Job ID: [id number]
[2018-08-20] MEDS: Ondansetron ODT 8 MG TAB PO SCH ×4 (05:28→23:58)
[2018-08-20] MEDS: Piperacillin/Tazobactam 3.375 GM in Sodium Chloride 0.9% 100 ML IVPB SCH ×4 (05:28→23:57)
[2018-08-20] MEDS: Diphenoxylate HCl/Atropine Tablet PO SCH ×4 (05:28→23:57)
[2018-08-20 06:25] LABS: #Basophils 0.1 thou/uL (0.0-0.2); #Lymphocytes 3.4 thou/uL (1.20-3.40); #Monocytes 1.6 thou/uL (0.11-0.59); #Neutrophils 18.8 thou/uL (1.40-6.50); %Basophils 0.4 % (0.0-1.0); %Lymphocytes 13.5 % (21.0-51.0); %Monocytes 6.6 % (0.0-10.0); %Neutrophils 75.5 % (42.0-75.0); Hemoglobin 9.4 g/dL (12.0-16.0); Mean Corpuscular HGB CONC 33.6 g/dL (32.0-36.0); Mean Corpuscular Hemoglobin 29.9 pg (27.0-31.0); Mean Platelet Volume 6.3 fL (7.4-10.4); Platelet Count 1320 thou/uL (130-400); RBC Distribution Width 16.5 % (11.5-14.5); Red Blood Cell (RBC) Count 3.15 mill/uL (4.20-5.40); White Blood Cell (WBC) Count 24.8 thou/uL (4.8-10.8)
[2018-08-20 06:40] LABS: ALT (SGPT) 56 U/L (8-55); AST (SGOT) 65 U/L (5-34); Albumin 3.1 g/dL (3.5-5.0); Alkaline Phosphatase 339 U/L (40-150); Anion Gap 13 mmol/L (10-20); BUN (Urea Nitrogen) 22 mg/dL (9.8-20.1); Bilirubin, Total 0.3 mg/dL (0.2-1.2); Calc. Creatinine Clearance 32 mL/min (70-130); Calcium 9.1 mg/dL (7.8-10.44); Carbon Dioxide 27 mmol/L (22-29); Chloride 95 mmol/L (98-107); Estimated GFR-MDRD 43; Glucose 92 mg/dL (70-105); Potassium 4.4 mmol/L (3.5-5.1); Protein, Total 7.1 g/dL (6.0-8.3); Sodium 131 mmol/L (136-145)
[2018-08-20] MEDS ORDERED: Famotidine/PF 20 mg/2ml Vial SLOW IVP SCH (09:00)
[2018-08-20] MEDS: Multivit, Therapeutic 1 TAB PO SCH (09:29)
[2018-08-20] MEDS: Aspirin Chewable 81 MG TAB PO SCH (09:29)
[2018-08-20] MEDS: Escitalopram Oxalate 20 mg Tablet PO SCH (09:29)
[2018-08-20] MEDS: Potassium Citrate 10 MEQ TAB PO SCH ×2 (09:29→20:08)
[2018-08-20] MEDS: Folic Acid 1 MG TAB PO SCH (09:29)
[2018-08-20] MEDS: Dronabinol 2.5 MG CAP PO SCH ×2 (09:29→18:12)
[2018-08-20] MEDS: Enoxaparin Sodium 30 MG/0.3 ML SYRINGE SC SCH (09:30)
[2018-08-20] MEDS: traMADol HCl 50 MG TAB PO PRN ×2 (09:31→18:12)
--- NOTE | 2018-08-20 13:27 | PDOC.PN ---
- Subjective Encounter Start Date: 08/20/18 Encounter Start Time: 08:00 Pt seen for followup re: sepsis. Says she feels okay. c/o discomfort at ostomy site. - Objective Resuscitation Status - Order Detail: 08/20/18 01:08 Resuscitation Status Routine Resuscitation Status: PRTL: Cardiac only Discussed with: Patient Additional comments: DNI. Everything but intubation. MAR Reviewed: Yes Vital Signs & Weight: Vital Signs (12 hours) Temp Pulse Resp BP Pulse Ox 08/20/18 11:58 97.8 F 107 H 20 120/61 95 08/20/18 08:22 97.5 F L 114 H 18 123/62 94 L 08/20/18 04:00 98.7 F 110 H 16 123/68 94 L Weight Weight 89 lb 12.8 oz I&O: 08/19/18 08/20/18 08/21/18 06:59 06:59 06:59 Intake Total 810 Output Total 750 Balance 60 Result Diagrams: 08/20/18 05:56 08/20/18 05:56 EKG Reviewed by me: Yes (Tele: sinus tachycardia) Phys Exam - Physical Examination Constitutional: NAD HEENT: moist MMs, sclera anicteric, oral pharynx no lesions, 2+ tonsils Neck: no nodes, no JVD, supple, full ROM Respiratory: clear to auscultation bilateral S1, S2, tachy, reg Gastrointestinal: soft, non-tender, positive bowel sounds ostomy; G-tube Neurological: moves all 4 limbs Psychiatric: normal affect, A&O x 3 Dx/Plan (1) Sepsis Code(s): A41.9 - SEPSIS, UNSPECIFIED ORGANISM Status: Acute Comment: no clear source. Continue IV antibiotics as below, follow cultures (2) Hyponatremia Code(s): E87.1 - HYPO-OSMOLALITY AND HYPONATREMIA Status: Resolved Comment: sodium improved to 131 today (3) Abnormal liver enzymes Code(s): R74.8 - ABNORMAL LEVELS OF OTHER SERUM ENZYMES Status: Acute Comment: LFTs improving (4) Thrombocytosis Status: Chronic Comment: Plts improved to 1320 today (5) Depression Code(s): F32.9 - MAJOR DEPRESSIVE DISORDER, SINGLE EPISODE, UNSPECIFIED Status : Chronic Comment: mild, stable (6) GERD (gastroesophageal reflux disease) Code(s): K21.9 - GASTRO-ESOPHAGEAL REFLUX DISEASE WITHOUT ESOPHAGITIS Status: Chronic Qualifiers: Comment: stable - Plan * . Review of Systems - Review of Systems Constitutional: negative: fever, chills, sweats, weakness, malaise Respiratory: negative: Cough, Shortness of Breath, SOB with Excertion, Pleuritic Pain, Wheezing Cardiovascular: negative: chest pain, palpitations, orthopnea, paroxysmal nocturnal dyspnea, edema, light headedness Gastrointestinal: Abdominal Pain. negative: Nausea, Vomiting, Diarrhea, Constipation, Melena, Hematochezia Genitourinary: negative: Dysuria, Frequency, Incontinence, Hematuria, Retention - Medications/Allergies Allergies/Adverse Reactions: Allergies Allergy/AdvReac Type Severity Reaction Status Date / Time ciprofloxacin [From Cipro] AdvReac Verified 08/19/18 23:03 hydrocodone AdvReac Verified 08/19/18 23:03 Medications: Current Medications Acetaminophen (Tylenol) 650 mg PO Q4H PRN PRN Reason: Headache/Fever/Mild Pain (1-3) Albuterol/Ipratropium (Duoneb) 3 ml NEB Q6H PRN PRN Reason: SOB &/or Wheezing Aspirin (Aspirin Chewable) 81 mg PO DAILY [facility] Last Admin: 08/20/18 09:29 Dose: 81 mg Diphenoxylate HCl/Atropine (Lomotil) 2 tab PO Q6HR [facility] Last Admin: 08/20/18 12:03 Dose: 2 tab Dronabinol (Marinol) 2.5 mg PO BID-AC [facility] Last Admin: 08/20/18 09:29 Dose: 2.5 mg Enoxaparin Sodium (Lovenox) 30 mg SC 0900 [facility] Last Admin: 08/20/18 09:30 Dose: 30 mg Escitalopram Oxalate (Lexapro) 20 mg PO DAILY [facility] Last Admin: 08/20/18 09:29 Dose: 20 mg Folic Acid (Folvite) 1 mg PO DAILY [facility] Last Admin: 08/20/18 09:29 Dose: 1 mg Sodium Chloride (Normal Saline 0.9%) 1,000 mls @ 75 mls/hr IV .[id number] [facility] Last Admin: 08/20/18 12:04 Dose: 1,000 mls Piperacillin Sod/Tazobactam (Sod 3.375 gm/ Sodium Chloride) 100 mls @ 200 mls/ hr IVPB Q6HR [facility] Last Admin: 08/20/18 12:03 Dose: 100 mls Multivitamins (Theragran) 1 tab PO DAILY [facility] Last Admin: 08/20/18 09:29 Dose: 1 tab Ondansetron HCl (Zofran Odt) 8 mg PO Q6HR [facility] Last Admin: 08/20/18 12:03 Dose: 8 mg Pantoprazole Sodium (Protonix) 40 mg PO DAILY [facility] Last Admin: 08/20/18 09:29 Dose: 40 mg Potassium Citrate (Urocit K) 10 meq PO BID [facility] Last Admin: 08/20/18 09:29 Dose: 10 meq Tramadol HCl (Ultram) 50 mg PO Q6H PRN PRN Reason: Moderate Pain (4-6) Last Admin: 08/20/18 09:31 Dose: 50 mg Trazodone HCl (Desyrel) 50 mg PO HSPRN PRN PRN Reason: Insomnia
[2018-08-20] MEDS ORDERED: Pancrelipase DR 12000 1 CAP FS PRN (13:44)
[2018-08-20] MEDS ORDERED: Sodium Bicarbonate Tab 325 MG TAB PER TUBE PRN (13:44)
[2018-08-20] MEDS: Sodium Chloride 1 GM TAB PO SCH (20:08)
[2018-08-21] MEDS: traMADol HCl 50 MG TAB PO PRN ×3 (00:07→11:49)
[2018-08-21] MEDS: Ondansetron ODT 8 MG TAB PO SCH ×4 (06:08→23:37)
[2018-08-21] MEDS: Piperacillin/Tazobactam 3.375 GM in Sodium Chloride 0.9% 100 ML IVPB SCH ×4 (06:08→23:37)
[2018-08-21] MEDS: Diphenoxylate HCl/Atropine Tablet PO SCH ×4 (06:08→23:37)
[2018-08-21] MEDS: Sodium Chloride 0.9% 1,000 ML IV SCH ×3 (06:08→21:20)
[2018-08-21] MEDS: Multivit, Therapeutic 1 TAB PO SCH (08:20)
[2018-08-21] MEDS: Escitalopram Oxalate 20 mg Tablet PO SCH (08:20)
[2018-08-21] MEDS: Sodium Chloride 1 GM TAB PO SCH ×2 (08:20→20:35)
[2018-08-21] MEDS: Folic Acid 1 MG TAB PO SCH (08:20)
[2018-08-21] MEDS: Potassium Citrate 10 MEQ TAB PO SCH ×2 (08:20→20:35)
[2018-08-21] MEDS: Aspirin Chewable 81 MG TAB PO SCH (08:20)
[2018-08-21] MEDS: Enoxaparin Sodium 30 MG/0.3 ML SYRINGE SC SCH (08:20)
[2018-08-21] MEDS: Dronabinol 2.5 MG CAP PO SCH ×2 (08:20→17:27)
--- NOTE | 2018-08-21 13:47 | PDOC.PN ---
- Subjective Encounter Start Date: 08/21/18 Encounter Start Time: 09:00 Pt seen for followup re: hyponatremia. Not eating much, no complaints today - Objective Resuscitation Status - Order Detail: 08/20/18 01:08 Resuscitation Status Routine Resuscitation Status: PRTL: Cardiac only Discussed with: Patient Additional comments: DNI. Everything but intubation. MAR Reviewed: Yes Vital Signs & Weight: Vital Signs (12 hours) Temp Pulse Resp BP Pulse Ox 08/21/18 11:46 97.8 F 94 16 104/55 L 95 08/21/18 07:11 97.6 F 96 18 98/53 L 96 08/21/18 03:39 98.4 F 103 H 16 108/54 L 94 L Weight Weight 89 lb 12.8 oz I&O: 08/20/18 08/21/18 08/22/18 06:59 06:59 06:59 Intake Total 810 3631 50 Output Total 750 2700 Balance 60 931 50 Result Diagrams: 08/20/18 05:56 08/20/18 05:56 EKG Reviewed by me: Yes (Tele: NSR) Phys Exam - Physical Examination Constitutional: NAD HEENT: moist MMs Neck: supple Respiratory: clear to auscultation bilateral Cardiovascular: RRR Gastrointestinal: soft ostomy, G-tube Neurological: moves all 4 limbs Psychiatric: normal affect Dx/Plan (1) Sepsis Code(s): A41.9 - SEPSIS, UNSPECIFIED ORGANISM Status: Acute Comment: Continue IV antibiotics as below, follow cultures. ID consult pending (2) Hyponatremia Code(s): E87.1 - HYPO-OSMOLALITY AND HYPONATREMIA Status: Acute Comment: check am Labs (3) Abnormal liver enzymes Code(s): R74.8 - ABNORMAL LEVELS OF OTHER SERUM ENZYMES Status: Acute Comment: recheck LFTs (4) Thrombocytosis Status: Chronic Comment: Check CBC (5) Depression Code(s): F32.9 - MAJOR DEPRESSIVE DISORDER, SINGLE EPISODE, UNSPECIFIED Status : Chronic Comment: mild, stable (6) GERD (gastroesophageal reflux disease) Code(s): K21.9 - GASTRO-ESOPHAGEAL REFLUX DISEASE WITHOUT ESOPHAGITIS Status: Chronic Qualifiers: Comment: stable - Plan Addendum: Discussed with case management. Despite antibiotics, patient continues to be tachycardic and has leucocytosis. Waiting ID consult. Will also consult oncology for thrombocythemia. Will change patient to inpatient. * . Review of Systems - Review of Systems Cardiovascular: negative: chest pain, palpitations, orthopnea, paroxysmal nocturnal dyspnea, edema, light headedness Gastrointestinal: negative: Nausea, Vomiting, Abdominal Pain, Diarrhea, Constipation, Melena, Hematochezia - Medications/Allergies Allergies/Adverse Reactions: Allergies Allergy/AdvReac Type Severity Reaction Status Date / Time ciprofloxacin [From Cipro] AdvReac Verified 08/19/18 23:03 hydrocodone AdvReac Verified 08/19/18 23:03 Medications: Current Medications Acetaminophen (Tylenol) 650 mg PO Q4H PRN PRN Reason: Headache/Fever/Mild Pain (1-3) Albuterol/Ipratropium (Duoneb) 3 ml NEB Q6H PRN PRN Reason: SOB &/or Wheezing Lipase/Protease/Amylase ([place] [id number]) 1 cap FS .PER PROTOCOL PRN PRN Reason: TUBE OCCLUSION PROTOCOL Aspirin (Aspirin Chewable) 81 mg PO DAILY [facility] Last Admin: 08/21/18 08:20 Dose: 81 mg Diphenoxylate HCl/Atropine (Lomotil) 2 tab PO Q6HR [facility] Last Admin: 08/21/18 11:49 Dose: 2 tab Dronabinol (Marinol) 2.5 mg PO BID-AC [facility] Last Admin: 08/21/18 08:20 Dose: 2.5 mg Enoxaparin Sodium (Lovenox) 30 mg SC 0900 [facility] Last Admin: 08/21/18 08:20 Dose: 30 mg Escitalopram Oxalate (Lexapro) 20 mg PO DAILY [facility] Last Admin: 08/21/18 08:20 Dose: 20 mg Folic Acid (Folvite) 1 mg PO DAILY [facility] Last Admin: 08/21/18 08:20 Dose: 1 mg Sodium Chloride (Normal Saline 0.9%) 1,000 mls @ 75 mls/hr IV .[id number] [facility] Last Admin: 08/21/18 06:08 Dose: 1,000 mls Piperacillin Sod/Tazobactam (Sod 3.375 gm/ Sodium Chloride) 100 mls @ 200 mls/ hr IVPB Q6HR [facility] Last Admin: 08/21/18 11:50 Dose: 100 mls Multivitamins (Theragran) 1 tab PO DAILY [facility] Last Admin: 08/21/18 08:20 Dose: 1 tab Ondansetron HCl (Zofran Odt) 8 mg PO Q6HR [facility] Last Admin: 08/21/18 11:49 Dose: 8 mg Pantoprazole Sodium (Protonix) 40 mg PO DAILY [facility] Last Admin: 08/21/18 08:21 Dose: 40 mg Potassium Citrate (Urocit K) 10 meq PO BID [facility] Last Admin: 08/21/18 08:20 Dose: 10 meq Sodium Bicarbonate (Bicarbonate, Sodium) 650 mg PER TUBE .PER PROTOCOL PRN PRN Reason: ENTERAL TUBE OCCLUSION Sodium Chloride (Sodium Chloride) 1 gm PO BID [facility] Last Admin: 08/21/18 08:20 Dose: 1 gm Tramadol HCl (Ultram) 50 mg PO Q6H PRN PRN Reason: Moderate Pain (4-6) Last Admin: 08/21/18 11:49 Dose: 50 mg Trazodone HCl (Desyrel) 50 mg PO HSPRN PRN PRN Reason: Insomnia
[2018-08-22] MEDS: Ondansetron ODT 8 MG TAB PO SCH ×4 (05:58→23:26)
[2018-08-22] MEDS: Diphenoxylate HCl/Atropine Tablet PO SCH ×4 (05:58→23:26)
[2018-08-22] MEDS: Piperacillin/Tazobactam 3.375 GM in Sodium Chloride 0.9% 100 ML IVPB SCH (06:02)
[2018-08-22 06:10] LABS: #Basophils 0.1 thou/uL (0.0-0.2); #Eosinphils 1.2 thou/uL (0.0-0.7); #Lymphocytes 2.3 thou/uL (1.20-3.40); #Monocytes 1.1 thou/uL (0.11-0.59); #Neutrophils 12.1 thou/uL (1.40-6.50); %Basophils 0.5 % (0.0-1.0); %Eosinophils 7.3 % (0.0-10.0); %Lymphocytes 13.6 % (21.0-51.0); %Monocytes 6.4 % (0.0-10.0); %Neutrophils 72.2 % (42.0-75.0); Mean Corpuscular Hemoglobin 30.2 pg (27.0-31.0); Mean Corpuscular Volume 94.3 fL (78.0-98.0); Mean Platelet Volume 6.2 fL (7.4-10.4); Platelet Count 932 thou/uL (130-400); RBC Distribution Width 16.7 % (11.5-14.5); White Blood Cell (WBC) Count 16.7 thou/uL (4.8-10.8)
[2018-08-22 06:42] LABS: ALT (SGPT) 28 U/L (8-55); AST (SGOT) 27 U/L (5-34); Albumin 2.4 g/dL (3.5-5.0); Alkaline Phosphatase 210 U/L (40-150); Anion Gap 10 mmol/L (10-20); BUN (Urea Nitrogen) 14 mg/dL (9.8-20.1); Bilirubin, Total Less than 0.2 mg/dL (0.2-1.2); Calc. Creatinine Clearance 42 mL/min (70-130); Calcium 7.6 mg/dL (7.8-10.44); Carbon Dioxide 25 mmol/L (22-29); Chloride 103 mmol/L (98-107); Estimated GFR-MDRD 50; Globulin 2.9 g/dL (2.4-3.5); Glucose 107 mg/dL (70-105); Potassium 4.1 mmol/L (3.5-5.1); Protein, Total 5.3 g/dL (6.0-8.3); Sodium 134 mmol/L (136-145)
--- NOTE | 2018-08-22 07:28 | CON ---
DATE OF CONSULTATION: 08/21/2018 REASON FOR CONSULTATION: Neutrophilia. HISTORY OF PRESENT ILLNESS: This is a 52-year-old patient, who has a history of Crohn disease, previously treated with TNF inhibitors, and then there were some issues with her ileum with possible malignancy and she had resection of the ileum and colon with ileocecectomy with an invasive well-differentiated adenocarcinoma identified. Margins seemed to be free and there were 28 negative lymph nodes. She developed dehiscence of the anastomosis and required ileostomy placement on June 28, 2018. She developed a postop abscess, which was percutaneously drained, and then she developed fungemia, which we felt was potentially related to the PICC line placed. The PICC line was removed. She was treated. On July 16, she had a CT-guided aspiration of the abdominal fluid collection and a total of 5 mL of thick schneider-colored fluid was aspirated and sent to Microbiology for evaluation. The cultures revealed Eubacterium lentum and Clostridium clostridioforme. She was treated for approximately 2 weeks with intravenous antimicrobial therapy. On 07/2018, she presented to the emergency room with vomiting for about a week before. She had a normal temperature and pulse was 105 and blood pressure 140/90. She did not appear toxic. The lungs were clear to auscultation and percussion. Heart examination was normal. She had diffuse abdominal tenderness. There is a note from Dr. Mcmullen referring to this admission for nausea and vomiting and the impression is multifactorial nausea and vomiting, hyponatremia, acute kidney injury, and thrombocytosis. I did not find a discharge summary in reference to this admission. Now, she presented on August 19 to the emergency room. She was referred from the clinic because of leukocytosis. The patient alleges that she did not feel any difference. She was not having vomiting or diarrhea. There are some problems with the ostomy, but otherwise no genitourinary symptoms. No abdominal pain. No dyspnea or cough. No back pain. She did not have myalgias. PAST MEDICAL HISTORY: Crohn disease, ileocecal adenocarcinoma, which required resection; dehiscence of the anastomosis with postop abscess formation, which was percutaneously aspirated and demonstrated a polymicrobal kamran, which was treated for about 2 weeks. She also had presumable PICC line colonization by Tova recently, which was treated with oral antimicrobials. ALLERGIES: CIPROFLOXACIN, IT IS NOT A TRUE ALLERGIC REACTION, IT IS MORE LIKE A BAD SENSATION IN THE MOUTH. FAMILY HISTORY: Noncontributory. SOCIAL HISTORY: No alcoholic beverage use. Former smoker. Lives with . MEDICATIONS: Current medications list includes: 1. Tylenol. 2. DuoNeb. 3. Creon. 4. Aspirin. 5. Lomotil. 6. Marinol. 7. Lovenox. 8. Lexapro. 9. Folvite. 10. Theragran. 11. Zofran. 12. Zosyn. PHYSICAL EXAMINATION: VITAL SIGNS: Temperature max 98.4, blood pressure 104/55, pulse 94, respirations 16, and O2 saturation 95%. SKIN: Ileostomy on the right side. The midline surgical wound, which is healing, except for the very center where there is some fat tissue exposed. The fat tissue does not appear necrotic. She has a gastrostomy tube in place with a normal-appearing exit site. She has a peripheral IV access. GENITOURINARY: She is voiding spontaneously. LYMPH: No lymphadenopathy. HEENT: Ocular movements are conjugate. Oral cavity is moist. Conjunctivae are somewhat pale. NECK: Supple. LUNGS: Symmetric. Clear breath sounds. ABDOMEN: Not distended, though mildly tender around the ileostomy. No erythema. No organomegaly noted. No bladder distention. EXTREMITIES: No joint inflammatory activity. No edema. Pulses 1+ in dorsalis pedis. She moves extremities equally. NEUROLOGIC: Cognitive function appears to be intact. LABORATORY DATA: White cell count is 27,000, hemoglobin 9.4, platelets 1300k, 67% neutrophils. Sodium 126, creatinine 1.27, AST 75, ALT 61, alkaline phosphatase 407 with albumin 3.4 and globulin 4.8. Microbiology, we have 2 sets of blood cultures, no growth. We have an abdominal midline wound swab culture with Staph aureus, pending susceptibilities. IMAGING STUDIES: In terms of imaging, we have a chest x-ray, which showed no infiltrates. There is a CT of abdomen and pelvis from August 12, which shows placement of percutaneous gastrostomy tube with no leakage of enteric contents and there is an enlargement of the intraperitoneal fluid collection since July 26. ASSESSMENT: Crohn disease; adenocarcinoma of the ileum, status post resection; dehiscence of the anastomosis; and right lower quadrant abscess formation, which was percutaneously aspirated; persistence of neutrophilia with thrombocytosis and now persistence and enlargement of right lower quadrant fluid collection deep to the ileostomy, which appears attached to a short blind loop of bowel. DISCUSSION: The most likely scenario here is persistence of the abscess, which is likely polymicrobial. The main question here is that if this is connected to bowel or not, which might explain the recurrence of the abscess. It does not appear to have any contrast within it, beyond the antimicrobial therapy given for a longer period of time than originally devised, maybe with oral administration depending on the microbiology results of the future aspiration, which will be awaited. In addition to that, I do not see that she would require surgical intervention at this point since there is no obvious communication with bowel unless the percutaneous aspirate is judged not feasible by radiology. I would discuss with Dr. Hickey of possible percutaneous aspiration of this collection via CT-guided procedure by Radiology and submit for routine cultures. Job ID: [id number] [facility]
[2018-08-22] MEDS: Potassium Citrate 10 MEQ TAB PO SCH ×2 (08:46→20:05)
[2018-08-22] MEDS: Enoxaparin Sodium 30 MG/0.3 ML SYRINGE SC SCH (08:46)
[2018-08-22] MEDS: Sodium Chloride 1 GM TAB PO SCH ×2 (08:46→20:05)
[2018-08-22] MEDS: Aspirin Chewable 81 MG TAB PO SCH (08:46)
[2018-08-22] MEDS: Multivit, Therapeutic 1 TAB PO SCH (08:46)
[2018-08-22] MEDS: Dronabinol 2.5 MG CAP PO SCH ×2 (08:46→18:01)
[2018-08-22] MEDS: Folic Acid 1 MG TAB PO SCH (08:46)
[2018-08-22] MEDS: Escitalopram Oxalate 20 mg Tablet PO SCH (08:46)
--- NOTE | 2018-08-22 11:50 | PRG ---
DATE OF SERVICE: 08/22/2018 SUBJECTIVE: Feeling about the same. She denies any pain. No respiratory symptoms. No diarrhea. Actually, she does have, but it is in the ileostomy. OBJECTIVE: VITAL SIGNS: The temperature curve is normal. Other vital signs are normal. O2 saturation 94%. GENERAL: Chronically ill appearing, but in no distress. LUNGS: Clear. HEART: S1 and S2. Regular rate. ABDOMEN: Soft with no tenderness. LABORATORY DATA: White cell count 16.7, hemoglobin 7, and platelets 932. Sodium 134 and creatinine 1.14. Staph aureus from the abdominal wound, this is probably colonization of the surface. I believe this reflects a deep penetrating inflammatory process and the CT with the abscess recurrence at the same location. ASSESSMENT AND DISCUSSION: Crohn disease and adenocarcinoma of ileum status post ileocecectomy and dehiscence of the anastomosis and then ileostomy with right lower quadrant abscess, which was percutaneously drained and the usual polymicrobial kamran identified with anaerobes mostly. Now, she has recurrence or recrudescence of the same process. There is a question of relationship to a loop of bowel that is next to it, but there is no contrast to allow interpretation. She is on broad-spectrum coverage with Zosyn. There is early evidence of therapeutic response with decrease in white cell count. We will request Radiology to repeat a CT-guided aspirate, submit cultures. Job ID: [id number]
[2018-08-22] MEDS: cefTRIAXone\\ROCEPHIN 1 GM in Sodium Chloride 0.9% 100 ML IVPB SCH (12:15)
--- NOTE | 2018-08-22 15:16 | PDOC.PN ---
- Subjective Encounter Start Date: 08/22/18 Encounter Start Time: 08:00 Pt seen for followup re: sepsis. feels slightly better, still not eating much. - Objective Resuscitation Status - Order Detail: 08/20/18 01:08 Resuscitation Status Routine Resuscitation Status: PRTL: Cardiac only Discussed with: Patient Additional comments: DNI. Everything but intubation. Vital Signs & Weight: Vital Signs (12 hours) Temp Pulse Resp BP Pulse Ox 08/22/18 11:21 98.1 F 99 18 114/62 93 L 08/22/18 08:41 97.9 F 95 18 120/64 94 L 08/22/18 03:36 98.5 F 103 H 17 104/61 92 L Weight Weight 103 lb 7 oz I&O: 08/21/18 08/22/18 08/23/18 06:59 06:59 06:59 Intake Total 3631 4758 430 Output Total 2700 3190 Balance 931 1568 430 Result Diagrams: 08/22/18 05:33 08/22/18 05:33 Phys Exam - Physical Examination Constitutional: NAD HEENT: moist MMs Neck: supple Respiratory: clear to auscultation bilateral Cardiovascular: RRR Gastrointestinal: soft ostomy, G-tube Neurological: moves all 4 limbs Psychiatric: normal affect Dx/Plan (1) Sepsis Code(s): A41.9 - SEPSIS, UNSPECIFIED ORGANISM Status: Acute Comment: Continue IV Zosyn (2) Hyponatremia Code(s): E87.1 - HYPO-OSMOLALITY AND HYPONATREMIA Status: Acute Comment: sodium improved to 134 today (3) Abnormal liver enzymes Code(s): R74.8 - ABNORMAL LEVELS OF OTHER SERUM ENZYMES Status: Acute Comment: transaminitis resolved, alk phos level improved. Albumin is low (4) Thrombocytosis Status: Chronic Comment: Plt count increased to 932K (5) Depression Code(s): F32.9 - MAJOR DEPRESSIVE DISORDER, SINGLE EPISODE, UNSPECIFIED Status : Chronic Comment: mild, stable (6) GERD (gastroesophageal reflux disease) Code(s): K21.9 - GASTRO-ESOPHAGEAL REFLUX DISEASE WITHOUT ESOPHAGITIS Status: Chronic Qualifiers: Comment: stable - Plan * . Review of Systems - Review of Systems Cardiovascular: negative: chest pain, palpitations, orthopnea, paroxysmal nocturnal dyspnea, edema, light headedness Gastrointestinal: negative: Nausea, Vomiting, Abdominal Pain, Diarrhea, Constipation, Melena, Hematochezia - Medications/Allergies Allergies/Adverse Reactions: Allergies Allergy/AdvReac Type Severity Reaction Status Date / Time ciprofloxacin [From Cipro] AdvReac Verified 08/19/18 23:03 hydrocodone AdvReac Verified 08/19/18 23:03 Medications: Current Medications Acetaminophen (Tylenol) 650 mg PO Q4H PRN PRN Reason: Headache/Fever/Mild Pain (1-3) Albuterol/Ipratropium (Duoneb) 3 ml NEB Q6H PRN PRN Reason: SOB &/or Wheezing Lipase/Protease/Amylase ([place]et[place] [id number]) 1 cap FS .PER PROTOCOL PRN PRN Reason: TUBE OCCLUSION PROTOCOL Aspirin (Aspirin Chewable) 81 mg PO DAILY [facility] Last Admin: 08/22/18 08:46 Dose: 81 mg Diphenoxylate HCl/Atropine (Lomotil) 2 tab PO Q6HR [facility] Last Admin: 08/22/18 12:33 Dose: 2 tab Dronabinol (Marinol) 2.5 mg PO BID-AC [facility] Last Admin: 08/22/18 08:46 Dose: 2.5 mg Enoxaparin Sodium (Lovenox) 30 mg SC 0900 [facility] Last Admin: 08/22/18 08:46 Dose: 30 mg Escitalopram Oxalate (Lexapro) 20 mg PO DAILY [facility] Last Admin: 08/22/18 08:46 Dose: 20 mg Folic Acid (Folvite) 1 mg PO DAILY [facility] Last Admin: 08/22/18 08:46 Dose: 1 mg Sodium Chloride (Normal Saline 0.9%) 1,000 mls @ 75 mls/hr IV .[id number] [facility] Last Admin: 08/21/18 21:20 Dose: 1,000 mls Ceftriaxone Sodium 1 gm/ (Sodium Chloride) 100 mls @ 200 mls/hr IVPB Q24HR [facility] Last Admin: 08/22/18 12:15 Dose: 100 mls Multivitamins (Theragran) 1 tab PO DAILY [facility] Last Admin: 08/22/18 08:46 Dose: 1 tab Ondansetron HCl (Zofran Odt) 8 mg PO Q6HR [facility] Last Admin: 08/22/18 12:15 Dose: 8 mg Pantoprazole Sodium (Protonix) 40 mg PO DAILY [facility] Last Admin: 08/22/18 08:46 Dose: 40 mg Potassium Citrate (Urocit K) 10 meq PO BID [facility] Last Admin: 08/22/18 08:46 Dose: 10 meq Sodium Bicarbonate (Bicarbonate, Sodium) 650 mg PER TUBE .PER PROTOCOL PRN PRN Reason: ENTERAL TUBE OCCLUSION Sodium Chloride (Sodium Chloride) 1 gm PO BID [facility] Last Admin: 08/22/18 08:46 Dose: 1 gm Tramadol HCl (Ultram) 50 mg PO Q6H PRN PRN Reason: Moderate Pain (4-6) Last Admin: 08/21/18 11:49 Dose: 50 mg Trazodone HCl (Desyrel) 50 mg PO HSPRN PRN PRN Reason: Insomnia
[2018-08-22] MEDS: Sodium Chloride 0.9% 1,000 ML IV SCH (18:24)
[2018-08-22] MEDS: traMADol HCl 50 MG TAB PO PRN (20:05)
--- NOTE | 2018-08-22 22:44 | CON ---
DATE OF CONSULTATION: REASON FOR CONSULT: Thrombocytosis. HISTORY OF PRESENT ILLNESS: Ms. Kwan is an unfortunate 52-year-old female with a history of Crohn disease, who in June had a colectomy for possible malignancy. Her path confirmed adenocarcinoma. She had a T1 N0 tumor. She had 0 of 28 lymph nodes positive for disease. Her margins were clear. Stage 1 disease. She developed an abscess in early July and had percutaneous CT drainage and PICC line placed for long- term antibiotics. She also had a PEG tube placed. She presented to the emergency room on08/19/18 for elevated white count found by her primary care. White count was 27,000. She had 67% neutrophils and 22% lymphocytes. Her platelet count was 1,602,000. She underwent evaluation and was found to have recurrence of abscess. Prior to her surgery in June, her platelet count was normal at 392, 000. On discharge after surgery, they were ranging in the 400-500 range. When she returned with her dehiscence and abscess, her platelets were greater than a million. They did improve prior to discharge and on August 11 were back at 829,000. Her white count was 9.2 in June 2018 and has been elevated since that time, has gone as high as 34,000. Currently, she complains of abdominal discomfort and poor appetite. She has lost weight since her surgery. No family history of hematological disorder. No bleeding, bruising, or clotting. PAST MEDICAL AND SURGICAL HISTORY: 1. Crohn disease. 2. Ileocecal adenocarcinoma stage I. 3. Dehiscence of anastomosis with postop abscess. 4. PICC line. ALLERGIES: CIPRO AND HYDROCODONE. FAMILY HISTORY: No known history of hematological malignancy. SOCIAL HISTORY: , lives with her . No alcohol, tobacco, or illicit drug use. CURRENT MEDICATIONS: 1. Protonix 40 mg daily. 2. Potassium citrate 10 mEq b.i.d. 3. Tramadol p.r.n. 4. Trazodone p.r.n. 5. Aspirin 81 mg daily. 6. Lomotil p.r.n. 7. Marinol 2.5 mg b.i.d. 8. Lexapro daily. 9. Folic acid daily. 10. Zofran p.r.n. REVIEW OF SYSTEMS: A 10-point review of systems is negative except for noted in HPI. PHYSICAL EXAMINATION: VITAL SIGNS: Temperature is 98.1, pulse is 99, respiratory rate 18, BP is 114/ 62. She is 93% on room air. GENERAL: This is a well-developed, well-nourished female, in no acute distress. HEENT: Normocephalic, atraumatic. Pupils are equal and reactive to light. NECK: Supple. CV: Regular rate and rhythm. LUNGS: Clear. ABDOMEN: Nontender. She has a right lower quadrant ileostomy bag, PEG tube in the left upper quadrant. EXTREMITIES: No clubbing, cyanosis, or edema. SKIN: No rash. HEMATOLOGICAL: No petechiae or purpura. NEUROLOGICAL: Nonfocal. PSYCH: The patient is alert, oriented, and appropriate. PERTINENT LABS AND X-RAYS: Current WBCs are 16.7, hemoglobin 7, hematocrit 21.7 , platelet count is 932,000. She has 72% neutrophils, 14% lymphocytes. Sodium is 134, potassium 4.1, chloride 103, CO2 is 25, BUN is 14, creatinine 1.14, calcium 7.6, bilirubin less than 0.2, AST is 27, ALT is 28, alkaline phosphatase is 210. Serum total protein 5.3, albumin 2.4, globulin 2.9. C-reactive protein is 8.76. Urine is negative. Radiology per HPI. ASSESSMENT: 1. Neutrophilia secondary to abscess formation. 2. Reactive thrombocytosis. 3. Anemia secondary to chronic illness. 4. History of stage I colon cancer. DISCUSSION: The patient's white and platelet counts are most consistent with reactive process secondary to the infectious and inflammatory conditions. Would treat the abscess with likely improvement in her counts, both have begun to decline. Her hemoglobin has dropped to 7.0. Would continue to monitor that and transfuse blood p.r.n. She will need a followup CBC in the outpatient setting, it can be done by her primary care. We will be happy to see her in the outpatient setting if her platelets continue to be elevated. Case discussed with Dr. Saavedra. Thank you for the consult. Job ID: [id number] MTDD
[2018-08-23] MEDS: Sodium Chloride 0.9% 1,000 ML IV SCH ×2 (04:04→17:26)
[2018-08-23] MEDS: traMADol HCl 50 MG TAB PO PRN ×2 (04:14→18:50)
[2018-08-23] MEDS: Ondansetron ODT 8 MG TAB PO SCH ×3 (05:31→19:01)
[2018-08-23] MEDS: Diphenoxylate HCl/Atropine Tablet PO SCH ×3 (05:31→19:01)
[2018-08-23 05:52] LABS: #Basophils 0.1 thou/uL (0.0-0.2); #Eosinphils 0.9 thou/uL (0.0-0.7); #Lymphocytes 2.7 thou/uL (1.20-3.40); #Neutrophils 11.4 thou/uL (1.40-6.50); %Basophils 0.6 % (0.0-1.0); %Eosinophils 5.3 % (0.0-10.0); %Monocytes 6.4 % (0.0-10.0); %Neutrophils 70.7 % (42.0-75.0); Hemoglobin 7.4 g/dL (12.0-16.0); Mean Corpuscular Hemoglobin 30.3 pg (27.0-31.0); Mean Corpuscular Volume 94.6 fL (78.0-98.0); Mean Platelet Volume 6.3 fL (7.4-10.4); Platelet Count 979 thou/uL (130-400); RBC Distribution Width 16.9 % (11.5-14.5); Red Blood Cell (RBC) Count 2.45 mill/uL (4.20-5.40); White Blood Cell (WBC) Count 16.1 thou/uL (4.8-10.8)
[2018-08-23 06:07] LABS: ALT (SGPT) 29 U/L (8-55); AST (SGOT) 23 U/L (5-34); Albumin 2.5 g/dL (3.5-5.0); Alkaline Phosphatase 259 U/L (40-150); Anion Gap 13 mmol/L (10-20); BUN (Urea Nitrogen) 12 mg/dL (9.8-20.1); Bilirubin, Total Less than 0.2 mg/dL (0.2-1.2); Calc. Creatinine Clearance 42 mL/min (70-130); Calcium 8.1 mg/dL (7.8-10.44); Carbon Dioxide 23 mmol/L (22-29); Chloride 103 mmol/L (98-107); Estimated GFR-MDRD 50; Globulin 3.4 g/dL (2.4-3.5); Glucose 93 mg/dL (70-105); Potassium 4.4 mmol/L (3.5-5.1); Protein, Total 5.9 g/dL (6.0-8.3); Sodium 135 mmol/L (136-145)
[2018-08-23] MEDS: Dronabinol 2.5 MG CAP PO SCH ×2 (09:05→19:01)
[2018-08-23] MEDS: Aspirin Chewable 81 MG TAB PO SCH (09:05)
[2018-08-23] MEDS: Sodium Chloride 1 GM TAB PO SCH ×2 (09:05→20:53)
[2018-08-23] MEDS: Escitalopram Oxalate 20 mg Tablet PO SCH (09:05)
[2018-08-23] MEDS: Folic Acid 1 MG TAB PO SCH (09:05)
[2018-08-23] MEDS: Enoxaparin Sodium 30 MG/0.3 ML SYRINGE SC SCH (09:05)
[2018-08-23] MEDS: Multivit, Therapeutic 1 TAB PO SCH (09:05)
[2018-08-23] MEDS: cefTRIAXone\\ROCEPHIN 1 GM in Sodium Chloride 0.9% 100 ML IVPB SCH (09:22)
[2018-08-23] MEDS: Potassium Citrate 10 MEQ TAB PO SCH ×2 (10:19→20:53)
[2018-08-23] MEDS ORDERED: Dronabinol 2.5 MG CAP PO SCH (11:30)
--- NOTE | 2018-08-23 14:17 | PDOC.PN ---
- Subjective Encounter Start Date: 08/23/18 Encounter Start Time: 08:00 Pt seen for followup re: sepsis. No new complaints. - Objective Resuscitation Status - Order Detail: 08/20/18 01:08 Resuscitation Status Routine Resuscitation Status: PRTL: Cardiac only Discussed with: Patient Additional comments: DNI. Everything but intubation. Vital Signs & Weight: Vital Signs (12 hours) Temp Pulse Resp BP Pulse Ox 08/23/18 08:00 97.8 F 78 16 135/64 98 08/23/18 04:06 98.3 F 101 H 18 130/61 95 Weight Weight 103 lb 7 oz I&O: 08/22/18 08/23/18 08/24/18 06:59 06:59 06:59 Intake Total 4758 4002 260 Output Total 3190 3500 Balance 1568 502 260 Result Diagrams: 08/23/18 04:58 08/23/18 04:58 Phys Exam - Physical Examination Constitutional: NAD HEENT: moist MMs Neck: supple Respiratory: clear to auscultation bilateral Cardiovascular: RRR Gastrointestinal: soft G-tube, ostomy Neurological: moves all 4 limbs Psychiatric: normal affect Dx/Plan (1) Sepsis Code(s): A41.9 - SEPSIS, UNSPECIFIED ORGANISM Status: Acute Comment: Continue IV ceftriaxone (based on culture result) (2) Hyponatremia Code(s): E87.1 - HYPO-OSMOLALITY AND HYPONATREMIA Status: Acute Comment: sodium improved to 135 today (3) Abnormal liver enzymes Code(s): R74.8 - ABNORMAL LEVELS OF OTHER SERUM ENZYMES Status: Acute Comment: alk phos still high (4) Thrombocytosis Status: Chronic Comment: Plt count 979K today (5) Depression Code(s): F32.9 - MAJOR DEPRESSIVE DISORDER, SINGLE EPISODE, UNSPECIFIED Status : Chronic Comment: mild, stable (6) GERD (gastroesophageal reflux disease) Code(s): K21.9 - GASTRO-ESOPHAGEAL REFLUX DISEASE WITHOUT ESOPHAGITIS Status: Chronic Qualifiers: Comment: stable - Plan * . Review of Systems - Review of Systems Cardiovascular: negative: chest pain, palpitations, orthopnea, paroxysmal nocturnal dyspnea, edema, light headedness Gastrointestinal: negative: Nausea, Vomiting, Abdominal Pain, Diarrhea, Constipation, Melena, Hematochezia - Medications/Allergies Allergies/Adverse Reactions: Allergies Allergy/AdvReac Type Severity Reaction Status Date / Time ciprofloxacin [From Cipro] AdvReac Verified 08/19/18 23:03 hydrocodone AdvReac Verified 08/19/18 23:03 Medications: Current Medications Acetaminophen (Tylenol) 650 mg PO Q4H PRN PRN Reason: Headache/Fever/Mild Pain (1-3) Albuterol/Ipratropium (Duoneb) 3 ml NEB Q6H PRN PRN Reason: SOB &/or Wheezing Lipase/Protease/Amylase (Demetrius Agosto [id number]) 1 cap FS .PER PROTOCOL PRN PRN Reason: TUBE OCCLUSION PROTOCOL Aspirin (Aspirin Chewable) 81 mg PO DAILY [facility] Last Admin: 08/23/18 09:05 Dose: 81 mg Diphenoxylate HCl/Atropine (Lomotil) 2 tab PO Q6HR [facility] Last Admin: 08/23/18 13:23 Dose: 2 tab Dronabinol (Marinol) 5 mg PO BID-[facility] Enoxaparin Sodium (Lovenox) 30 mg SC 0900 [facility] Last Admin: 08/23/18 09:05 Dose: 30 mg Escitalopram Oxalate (Lexapro) 20 mg PO DAILY [facility] Last Admin: 08/23/18 09:05 Dose: 20 mg Folic Acid (Folvite) 1 mg PO DAILY [facility] Last Admin: 08/23/18 09:05 Dose: 1 mg Sodium Chloride (Normal Saline 0.9%) 1,000 mls @ 75 mls/hr IV .[id number] [facility] Last Admin: 08/23/18 04:04 Dose: 1,000 mls Ceftriaxone Sodium 1 gm/ (Sodium Chloride) 100 mls @ 200 mls/hr IVPB Q24HR [facility] Last Admin: 08/23/18 09:22 Dose: 100 mls Multivitamins (Theragran) 1 tab PO DAILY [facility] Last Admin: 08/23/18 09:05 Dose: 1 tab Ondansetron HCl (Zofran Odt) 8 mg PO Q6HR [facility] Last Admin: 08/23/18 13:19 Dose: 8 mg Pantoprazole Sodium (Protonix) 40 mg PO DAILY [facility] Last Admin: 08/23/18 09:05 Dose: 40 mg Potassium Citrate (Urocit K) 10 meq PO BID [facility] Last Admin: 08/23/18 10:19 Dose: 10 meq Sodium Bicarbonate (Bicarbonate, Sodium) 650 mg PER TUBE .PER PROTOCOL PRN PRN Reason: ENTERAL TUBE OCCLUSION Sodium Chloride (Sodium Chloride) 1 gm PO BID [facility] Last Admin: 08/23/18 09:05 Dose: 1 gm Tramadol HCl (Ultram) 50 mg PO Q6H PRN PRN Reason: Moderate Pain (4-6) Last Admin: 08/23/18 04:14 Dose: 50 mg Trazodone HCl (Desyrel) 50 mg PO HSPRN PRN PRN Reason: Insomnia
--- NOTE | 2018-08-23 16:32 | PDOC.GSPN ---
Surgery Progress Note: Subj - Subjective Patient reports: no new complaints (Tube feeds seem to be going well) Surgery Progress Note: Obj - Vital signs Vital signs: Vital Signs - Most Recent Temp Pulse Resp BP Pulse Ox 97.8 F 78 16 135/64 98 08/23/18 08:00 08/23/18 08:00 08/23/18 08:00 08/23/18 08:00 08/23/18 08:00 - Physical Exam General: no distress Abdomen: soft, non tender, nondistended Wound: healing well (almost completely healed) Surgery Progress Note: Results - Labs Result Diagrams: 08/23/18 04:58 08/23/18 04:58 Lab results: Laboratory Results - last 24 hr 08/23/18 08/23/18 04:58 04:58 WBC 16.1 H RBC 2.45 L Hgb 7.4 L Hct 23.1 L MCV 94.6 MCH 30.3 MCHC 32.0 RDW 16.9 H Plt Count 979 H* MPV 6.3 L Neutrophils % 70.7 Lymphocytes % 17.0 L Monocytes % 6.4 Eosinophils % 5.3 Basophils % 0.6 Neutrophils # 11.4 H Lymphocytes # 2.7 Monocytes # 1.0 H Eosinophils # 0.9 H Basophils # 0.1 Sodium 135 L Potassium 4.4 Chloride 103 Carbon Dioxide 23 Anion Gap 13 BUN 12 Creatinine 1.13 H Estimated GFR (MDRD) 50 Glucose 93 Calcium 8.1 Total Bilirubin Less than 0.2 L AST 23 ALT 29 Alkaline Phosphatase 259 H Serum Total Protein 5.9 L Albumin 2.5 L Globulin 3.4 Albumin/Globulin Ratio 0.7 L Surgery Progress Note: A/P - Problem (1) Abdominal abscess Current Visit: Yes Code(s): [id number] - Status: Acute Assessment and Plan: Right next to ileostomy segment and surrounded by small intestine. Not amenable to percutaneous drainage. I suspect this is crohns related and due to ischemia to this ileostomy segment early on. She could have fistulous connection to the fluid collection from the terminal ileum near the ileostomy. Plan revision ostomy and open drainage with placement of drain on . asked about going ahead and reversing the ostomy but I do not feel like it is safe at this time especially given this potential fistula/infectious collection present.
--- NOTE | 2018-08-23 17:58 | PRG ---
DATE OF SERVICE: 08/23/2018 SUBJECTIVE: Ms. Kwan had evaluation by Radiology. They felt it was too risky to do a percutaneous procedure. Dr. Hickey has been consulted. He is planning I believe a procedure tomorrow to place a drain within the collection. She is otherwise feeling okay. She is actually better with antimicrobials. OBJECTIVE: VITAL SIGNS: Has not had a fever and other vital signs were pretty unremarkable. GENERAL: Awake, alert, and oriented. NECK: Supple. LUNGS: Symmetric. Clear breath sounds. HEART: S1 and S2, regular rate. ABDOMEN: Soft, not distended. EXTREMITIES: Moves extremities equally. LABORATORY DATA: White cell count 16,000, hemoglobin 7.4, platelets 979. Sodium 135, creatinine 1.13, calcium 8.1, albumin 2.5, alkaline phosphatase 259. No new microbiology information. ASSESSMENT AND DISCUSSION: Crohn disease, adenocarcinoma of ileum, status post ileocecectomy and dehiscence of anastomosis, subsequent ileostomy with development of right lower quadrant abscess which appears to have recurred now and Dr. Hickey is going to place a drain surgically tomorrow. Continue antimicrobial therapy. I believe she is going to need a PICC line and protracted antimicrobial therapy after this procedure is completed to make sure that there is no recrudescence in the future. Job ID: [id number]
[2018-08-24] MEDS: Ondansetron ODT 8 MG TAB PO SCH ×5 (00:35→21:50)
[2018-08-24] MEDS: Diphenoxylate HCl/Atropine Tablet PO SCH ×4 (00:35→18:11)
[2018-08-24] MEDS: Sodium Chloride 0.9% 1,000 ML IV SCH ×2 (00:36→15:00)
[2018-08-24 06:36] LABS: Hemoglobin 7.2 g/dL (12.0-16.0); Mean Corpuscular HGB CONC 31.8 g/dL (32.0-36.0); Mean Corpuscular Volume 94.3 fL (78.0-98.0); Mean Platelet Volume 6.5 fL (7.4-10.4); Platelet Count 911 thou/uL (130-400); White Blood Cell (WBC) Count 13.9 thou/uL (4.8-10.8)
[2018-08-24 06:40] LABS: #Basophils 0.1 thou/uL (0.0-0.2); #Eosinphils 0.7 thou/uL (0.0-0.7); #Lymphocytes 3.1 thou/uL (1.20-3.40); #Monocytes 0.9 thou/uL (0.11-0.59); #Neutrophils 9.1 thou/uL (1.40-6.50); %Basophils 0.6 % (0.0-1.0); %Lymphocytes 22.4 % (21.0-51.0); %Monocytes 6.6 % (0.0-10.0); %Neutrophils 65.3 % (42.0-75.0)
[2018-08-24 07:19] LABS: ALT (SGPT) 22 U/L (8-55); AST (SGOT) 23 U/L (5-34); Albumin 2.5 g/dL (3.5-5.0); Alkaline Phosphatase 282 U/L (40-150); Anion Gap 12 mmol/L (10-20); BUN (Urea Nitrogen) 12 mg/dL (9.8-20.1); Bilirubin, Total Less than 0.2 mg/dL (0.2-1.2); Calc. Creatinine Clearance 51 mL/min (70-130); Calcium 7.8 mg/dL (7.8-10.44); Carbon Dioxide 25 mmol/L (22-29); Chloride 103 mmol/L (98-107); Estimated GFR-MDRD 62; Globulin 3.2 g/dL (2.4-3.5); Glucose 94 mg/dL (70-105); Potassium 4.1 mmol/L (3.5-5.1); Protein, Total 5.7 g/dL (6.0-8.3); Sodium 136 mmol/L (136-145)
[2018-08-24] MEDS: Sodium Chloride 1 GM TAB PO SCH ×2 (08:59→21:50)
[2018-08-24] MEDS: Aspirin Chewable 81 MG TAB PO SCH (08:59)
[2018-08-24] MEDS: Escitalopram Oxalate 20 mg Tablet PO SCH (08:59)
[2018-08-24] MEDS: Enoxaparin Sodium 30 MG/0.3 ML SYRINGE SC SCH (08:59)
[2018-08-24] MEDS: Potassium Citrate 10 MEQ TAB PO SCH ×2 (08:59→21:50)
[2018-08-24] MEDS: Multivit, Therapeutic 1 TAB PO SCH (09:00)
[2018-08-24] MEDS: Folic Acid 1 MG TAB PO SCH (09:00)
[2018-08-24] MEDS: cefTRIAXone\\ROCEPHIN 1 GM in Sodium Chloride 0.9% 100 ML IVPB SCH (10:34)
[2018-08-24] MEDS: Dronabinol 2.5 MG CAP PO SCH ×2 (10:34→18:13)
--- NOTE | 2018-08-24 14:00 | PRG ---
DATE OF SERVICE: 08/24/2018 SUBJECTIVE: Ms. Kwan was readmitted back to the hospital apparently last week on the with leukocytosis. Her CAT scan performed after PEG tube with no further increased fluid collection. On that admission, she had been treated for fungemia previously from a PICC line. Also, she had initial infections after her ileal resection for adenocarcinoma with dehiscence. There were signs of ongoing inflammation during last hospitalization with thrombocytosis. Her white count had been normal. However, on readmission, it was 27,000. The fluid collection around the ostomy was felt to be bigger on August 12 CAT scan. It was felt that this prior represents a small abscess. Talking with Dr. Hickey yesterday, Radiology felt they could not drain this. Therefore, the patient tells me he is going to take her and try to drain this surgically tomorrow. She is tolerating feeding better. She is tolerating her tube feeds, is trying to eat a little bit more. MEDICATIONS: 1. Tylenol. 2. DuoNeb. 3. Aspirin. 4. Ceftriaxone. 5. Lomotil. 6. Marinol. 7. Lexapro. 8. Folic acid. 9. Creon. 10. Protonix. 11. Zofran p.r.n. 12. Procrit. PHYSICAL EXAMINATION: GENERAL: She is resting comfortably in bed. VITAL SIGNS: Temperature is 97, pulse 107, blood pressure 137/70. LUNGS: Clear. HEART: Regular. No rubs or murmurs. ABDOMEN: Soft and nontender. No fullness or tenderness at the ostomy site. LABORATORY DATA: [place] [address] to 13.9, platelet count is 911 from 1602. BUN and creatinine are 12 and 0.94. Sodium 136, potassium 4.1, alkaline phosphatase is 282, albumin is 2.5. AST and ALT are normal. ASSESSMENT: 1. Peristomal abscess to be drained tomorrow. 2. I do not think there is any active Crohn's going on at this point. Overall, she has been off her medications for several weeks now since her surgery 3 months ago. She had a previous positive TB screen and been treated for that before starting the Humira dose. I think once the abscess is drained, we will need to strongly consider getting her back on Humira. I will talk with Dr. Juan about that, maybe we can wait a week or 2 after trying to make sure she is doing well with that. I think we should get her back on it to end up having active flare of her Crohn's. Job ID: [id number]
--- NOTE | 2018-08-24 16:42 | PDOC.PN ---
- Subjective Encounter Start Date: 08/24/18 Encounter Start Time: 08:00 Pt seen for followup re: sepsis. Feels slightly better, slept on and off. Appetite slightly better. - Objective Resuscitation Status - Order Detail: 08/20/18 01:08 Resuscitation Status Routine Resuscitation Status: PRTL: Cardiac only Discussed with: Patient Additional comments: DNI. Everything but intubation. Vital Signs & Weight: Vital Signs (12 hours) Temp Pulse Resp BP Pulse Ox 08/24/18 16:08 97.7 F 100 16 146/79 H 94 L 08/24/18 12:04 97.6 F 107 H 16 137/70 93 L 08/24/18 07:15 93 L 08/24/18 07:13 98 F 97 18 143/67 H 93 L Weight Weight 103 lb 7 oz I&O: 08/23/18 08/24/18 08/25/18 06:59 06:59 06:59 Intake Total 4002 3771 1981 Output Total 3500 3800 1900 Balance 502 -29 81 Result Diagrams: 08/24/18 05:57 08/24/18 05:57 Phys Exam - Physical Examination Constitutional: NAD HEENT: moist MMs Neck: supple Respiratory: clear to auscultation bilateral Cardiovascular: RRR Gastrointestinal: soft G-tube, ostomy Neurological: moves all 4 limbs Psychiatric: normal affect Dx/Plan (1) Sepsis Code(s): A41.9 - SEPSIS, UNSPECIFIED ORGANISM Status: Acute Comment: Continue IV ceftriaxone (2) Abnormal liver enzymes Code(s): R74.8 - ABNORMAL LEVELS OF OTHER SERUM ENZYMES Status: Acute Comment: Improving (3) Thrombocytosis Status: Chronic Comment: Plt count improved to 911K today (4) Depression Code(s): F32.9 - MAJOR DEPRESSIVE DISORDER, SINGLE EPISODE, UNSPECIFIED Status : Chronic Comment: mild, stable (5) GERD (gastroesophageal reflux disease) Code(s): K21.9 - GASTRO-ESOPHAGEAL REFLUX DISEASE WITHOUT ESOPHAGITIS Status: Chronic Qualifiers: Comment: stable (6) Hyponatremia Code(s): E87.1 - HYPO-OSMOLALITY AND HYPONATREMIA Status: Resolved - Plan continue antibiotics, out of bed/ambulate, DVT proph w/SCDs * . Pt to go for abscess drainage by surgical service tomorrow. Appetite improved after increasing marinol dose yesterday. Review of Systems - Review of Systems Cardiovascular: negative: chest pain, palpitations, orthopnea, paroxysmal nocturnal dyspnea, edema, light headedness Gastrointestinal: Abdominal Pain, Other (Decreased appetite). negative: Nausea , Vomiting, Diarrhea, Constipation, Melena, Hematochezia - Medications/Allergies Allergies/Adverse Reactions: Allergies Allergy/AdvReac Type Severity Reaction Status Date / Time ciprofloxacin [From Cipro] AdvReac Verified 08/19/18 23:03 hydrocodone AdvReac Verified 08/19/18 23:03 Medications: Current Medications Acetaminophen (Tylenol) 650 mg PO Q4H PRN PRN Reason: Headache/Fever/Mild Pain (1-3) Albuterol/Ipratropium (Duoneb) 3 ml NEB Q6H PRN PRN Reason: SOB &/or Wheezing Lipase/Protease/Amylase (Demetrius Agosto [id number]) 1 cap FS .PER PROTOCOL PRN PRN Reason: TUBE OCCLUSION PROTOCOL Aspirin (Aspirin Chewable) 81 mg PO DAILY [facility] Last Admin: 08/24/18 08:59 Dose: 81 mg Diphenoxylate HCl/Atropine (Lomotil) 2 tab PO Q6HR [facility] Last Admin: 08/24/18 12:06 Dose: 2 tab Dronabinol (Marinol) 5 mg PO BID-[facility] Last Admin: 08/24/18 10:34 Dose: 5 mg Escitalopram Oxalate (Lexapro) 20 mg PO DAILY [facility] Last Admin: 08/24/18 08:59 Dose: 20 mg Folic Acid (Folvite) 1 mg PO DAILY [facility] Last Admin: 08/24/18 09:00 Dose: 1 mg Sodium Chloride (Normal Saline 0.9%) 1,000 mls @ 75 mls/hr IV .[id number] [facility] Last Admin: 08/24/18 15:00 Dose: 1,000 mls Ceftriaxone Sodium 1 gm/ (Sodium Chloride) 100 mls @ 200 mls/hr IVPB Q24HR [facility] Last Admin: 08/24/18 10:34 Dose: 100 mls Multivitamins (Theragran) 1 tab PO DAILY [facility] Last Admin: 08/24/18 09:00 Dose: 1 tab Ondansetron HCl (Zofran Odt) 8 mg PO Q6HR [facility] Last Admin: 08/24/18 12:07 Dose: 8 mg Pantoprazole Sodium (Protonix) 40 mg PO DAILY [facility] Last Admin: 08/24/18 09:00 Dose: 40 mg Potassium Citrate (Urocit K) 10 meq PO BID [facility] Last Admin: 08/24/18 08:59 Dose: 10 meq Sodium Bicarbonate (Bicarbonate, Sodium) 650 mg PER TUBE .PER PROTOCOL PRN PRN Reason: ENTERAL TUBE OCCLUSION Sodium Chloride (Sodium Chloride) 1 gm PO BID [facility] Last Admin: 08/24/18 08:59 Dose: 1 gm Tramadol HCl (Ultram) 50 mg PO Q6H PRN PRN Reason: Moderate Pain (4-6) Last Admin: 08/23/18 18:50 Dose: 50 mg Trazodone HCl (Desyrel) 50 mg PO HSPRN PRN PRN Reason: Insomnia
[2018-08-25] MEDS: Diphenoxylate HCl/Atropine Tablet PO SCH ×4 (00:59→18:21)
[2018-08-25] MEDS: Ondansetron ODT 8 MG TAB PO SCH ×4 (03:55→21:14)
[2018-08-25] MEDS: Sodium Chloride 0.9% 1,000 ML IV SCH ×2 (03:55→19:10)
[2018-08-25] MEDS: Dronabinol 2.5 MG CAP PO SCH ×2 (08:10→19:08)
[2018-08-25] MEDS: Potassium Citrate 10 MEQ TAB PO SCH ×2 (09:00→21:13)
[2018-08-25] MEDS: Sodium Chloride 1 GM TAB PO SCH ×2 (09:00→21:14)
[2018-08-25] MEDS ORDERED: Glycopyrrolate 0.2 MG/ML 5 ML SYRINGE ONE (10:24)
[2018-08-25] MEDS ORDERED: Rocuronium Bromide 10 MG/ML (10ML VIAL) ONE (10:24)
[2018-08-25] MEDS ORDERED: PHENYLEPHRINE-NS 100 MCG/ML 10 ML SYRINGE ONE (10:24)
[2018-08-25] MEDS ORDERED: Lidocaine 1% PF 5 ML VIAL ONE (10:24)
[2018-08-25] MEDS ORDERED: PROPOFOL 200 MG/20 ML VIAL ONE (10:24)
[2018-08-25] MEDS ORDERED: Dexamethasone 20 MG/5 ML VIAL ONE (10:24)
[2018-08-25] MEDS ORDERED: Ondansetron PF 4 MG/2 ML Vial ONE (10:24)
[2018-08-25] MEDS ORDERED: Midazolam HCl 2 mg/2 ml Vial ONE (10:25)
[2018-08-25] MEDS ORDERED: Lidocaine 2% Jelly 5 ML TUBE ONE (10:25)
[2018-08-25] MEDS ORDERED: Fentanyl 100 MCG/2 ML VIAL ONE ×2 (10:25→12:16)
[2018-08-25] MEDS ORDERED: Promethazine HCl 25 MG/ML VIAL SLOW IVP PRN (12:03)
[2018-08-25] MEDS ORDERED: Promethazine HCl 25 MG/ML VIAL IM PRN (12:03)
[2018-08-25] MEDS ORDERED: Ondansetron HCl/PF 4 MG/2 ML Vial IVP PRN (12:03)
[2018-08-25] MEDS ORDERED: Fentanyl 100 MCG/2 ML VIAL SLOW IVP PRN (12:58)
[2018-08-25] MEDS: Acetaminophen 1,000 MG in Premix Bag 1 BAG IVPB PRN ×2 (13:14→21:13)
[2018-08-25] MEDS: cefTRIAXone\\ROCEPHIN 1 GM in Sodium Chloride 0.9% 100 ML IVPB SCH (13:15)
[2018-08-25] MEDS: Escitalopram Oxalate 20 mg Tablet PO SCH (13:26)
[2018-08-25] MEDS: Aspirin Chewable 81 MG TAB PO SCH (13:26)
[2018-08-25] MEDS: Folic Acid 1 MG TAB PO SCH (13:30)
[2018-08-25] MEDS: Multivit, Therapeutic 1 TAB PO SCH (13:30)
[2018-08-25] MEDS ORDERED: Carvedilol 6.25 MG TAB PO SCH (13:45)
--- NOTE | 2018-08-25 14:13 | PDOC.PN ---
- Subjective Encounter Start Date: 08/25/18 Encounter Start Time: 14:11 Subjective: No new p[roblem. S/p drainage of RLQ paraostomy abscess. -: Denied fever. - Objective Resuscitation Status - Order Detail: 08/20/18 01:08 Resuscitation Status Routine Resuscitation Status: PRTL: Cardiac only Discussed with: Patient Additional comments: DNI. Everything but intubation. Vital Signs & Weight: Vital Signs (12 hours) Temp Pulse Resp BP Pulse Ox 08/25/18 08:00 98.4 F 103 H 16 153/83 H 92 L 08/25/18 04:00 98.2 F 104 H 16 145/82 H 92 L Weight Admit Weight 89 lb 12.8 oz Weight 103 lb 7 oz I&O: 08/24/18 08/25/18 08/26/18 06:59 06:59 06:59 Intake Total 3771 3518 Output Total 3800 2300 Balance -29 1218 Result Diagrams: 08/24/18 05:57 08/24/18 05:57 Phys Exam - Physical Examination chronically ill looking. HEENT: PERRLA, moist MMs Neck: no JVD, supple Respiratory: no wheezing, no rhonchi fair air entry bilaterally Cardiovascular: RRR Gastrointestinal: soft, no distention RLQ ostomy, lower widline wound and RUQ PEG noted Musculoskeletal: no edema, pulses present Neurological: non-focal, moves all 4 limbs Dx/Plan (1) Abdominal abscess Code(s): OLT1620 - Status: Acute (2) Sepsis Code(s): A41.9 - SEPSIS, UNSPECIFIED ORGANISM Status: Acute Comment: Continue IV ceftriaxone (3) Abnormal liver enzymes Code(s): R74.8 - ABNORMAL LEVELS OF OTHER SERUM ENZYMES Status: Acute Comment: Improving (4) Hypokalemia Code(s): E87.6 - HYPOKALEMIA Status: Acute Comment: SERUM K nl,.. Continue Aldactone. Continue KCl for 3 days, the DC. Hypomagnesemia, supplemented. (5) Neutrophilic leukocytosis Code(s): D72.9 - DISORDER OF WHITE BLOOD CELLS, UNSPECIFIED Status: Acute Comment: Improving slowly, continue Zosyn, Wound vac and local wound care, serial CBC (6) S/P ileostomy Code(s): Z93.2 - ILEOSTOMY STATUS Status: Acute Comment: As per surgery/ PCP. (7) Crohn's disease Code(s): K50.90 - CROHN'S DISEASE, UNSPECIFIED, WITHOUT COMPLICATIONS Status: Chronic Qualifiers: Gastrointestinal tract location: small and large intestine Comment: h/o ileocecectomy for stricture and adenocarcinoma- completely removed with clear margins (8) Thrombocytosis Status: Chronic Comment: Plt count improved to 911K today (9) RUT (acute kidney injury) Code(s): N17.9 - ACUTE KIDNEY FAILURE, UNSPECIFIED Status: Resolved (10) Hyponatremia Code(s): E87.1 - HYPO-OSMOLALITY AND HYPONATREMIA Status: Resolved - Plan Continue current antibiotics. ID follwoing. -: Intermittent tube feeding to continue. -: Monitor CBC and renal function/electrolytes and replete as needed -: PT/OT to eval and treat. * .
[2018-08-25] MEDS: traMADol HCl 50 MG TAB PO PRN (18:20)
[2018-08-25] MEDS: Carvedilol 6.25 MG TAB PO SCH (23:17)
[2018-08-26] MEDS: Diphenoxylate HCl/Atropine Tablet PO SCH ×4 (00:14→18:53)
[2018-08-26] MEDS: Acetaminophen 1,000 MG in Premix Bag 1 BAG IVPB PRN ×2 (03:07→09:10)
[2018-08-26] MEDS: traMADol HCl 50 MG TAB PO PRN ×3 (03:07→18:58)
[2018-08-26] MEDS: Ondansetron ODT 8 MG TAB PO SCH ×3 (03:53→17:27)
[2018-08-26 06:46] LABS: Hemoglobin 7.8 g/dL (12.0-16.0); Mean Corpuscular HGB CONC 31.8 g/dL (32.0-36.0); Mean Corpuscular Hemoglobin 30.2 pg (27.0-31.0); Mean Platelet Volume 6.9 fL (7.4-10.4); Platelet Count 1039 thou/uL (130-400); RBC Distribution Width 17.4 % (11.5-14.5); Red Blood Cell (RBC) Count 2.59 mill/uL (4.20-5.40); White Blood Cell (WBC) Count 24.1 thou/uL (4.8-10.8)
[2018-08-26 06:55] LABS: ALT (SGPT) 19 U/L (8-55); AST (SGOT) 19 U/L (5-34); Albumin 2.6 g/dL (3.5-5.0); Alkaline Phosphatase 267 U/L (40-150); Anion Gap 12 mmol/L (10-20); BUN (Urea Nitrogen) 9 mg/dL (9.8-20.1); Bilirubin, Total 0.3 mg/dL (0.2-1.2); Calc. Creatinine Clearance 53 mL/min (70-130); Calcium 7.7 mg/dL (7.8-10.44); Carbon Dioxide 24 mmol/L (22-29); Chloride 101 mmol/L (98-107); Estimated GFR-MDRD 65; Globulin 3.4 g/dL (2.4-3.5); Glucose 98 mg/dL (70-105); Potassium 3.7 mmol/L (3.5-5.1); Sodium 133 mmol/L (136-145)
[2018-08-26 06:59] LABS: Magnesium 0.8 mg/dL (1.6-2.6)
--- NOTE | 2018-08-26 07:12 | PDOC.GSPN ---
Surgery Progress Note: Subj - Subjective Narrative: Patient is a 52 yo female on PO day 1 after ileostomy reversal and drainage of parastomal abscess. She is resting well this morning with no complaints. She denied n/v/ subj fever, SOB, chest pain, claudication Surgery Progress Note: Obj - Vital signs Vital signs: Vital Signs - Most Recent Temp Pulse Resp BP Pulse Ox 98.2 F 113 H 16 118/57 L 93 L 08/26/18 04:00 08/26/18 04:00 08/26/18 04:00 08/26/18 04:00 08/26/18 04:00 - Physical Exam General: no distress Neck: trachea midline Cardiovascular: regular rate and rhythm, no murmur Respiratory: clear to auscultation, breath sounds present Abdomen: soft, nondistended, positive bowel sounds (Ileostomy showing good output) Musculoskeletal: normal posture Psychiatric: speech is normal Wound: dressing clean,dry,intact Surgery Progress Note: Results - Labs Result Diagrams: 08/26/18 06:07 08/26/18 06:07 Lab results: Laboratory Results - last 24 hr 08/26/18 08/26/18 06:07 06:07 WBC 24.1 H RBC 2.59 L Hgb 7.8 L Hct 24.7 L MCV 95.0 MCH 30.2 MCHC 31.8 L RDW 17.4 H Plt Count 1039 H* MPV 6.9 L Sodium 133 L Potassium 3.7 Chloride 101 Carbon Dioxide 24 Anion Gap 12 BUN 9 L Creatinine 0.90 Estimated GFR (MDRD) 65 Glucose 98 Calcium 7.7 L Magnesium 0.8 L* Total Bilirubin 0.3 AST 19 ALT 19 Alkaline Phosphatase 267 H Serum Total Protein 6.0 Albumin 2.6 L Globulin 3.4 Albumin/Globulin Ratio 0.8 L Surgery Progress Note: A/P - Problem (1) Abdominal abscess Current Visit: Yes Code(s): [id number] - Status: Acute Assessment and Plan: Parastomal abscess draining through revised ileostomy, awaiting cultures and will adjust antibiotics accordingly. (2) Hypomagnesemia Current Visit: No Code(s): E83.42 - HYPOMAGNESEMIA Status: Acute Assessment and Plan: start magnesium sulfate 2g. (3) COPD not affecting current episode of care Current Visit: No Code(s): J44.9 - CHRONIC OBSTRUCTIVE PULMONARY DISEASE, UNSPECIFIED Status: Acute Assessment and Plan: due to chronic deconditioning and mild COPD changes, she is currently on 2L O2 and sats are 94%. (4) Thrombocytosis Current Visit: No Status: Chronic Assessment and Plan: Likely reactive in nature, will correlate with white counts and continue to monitor with daily CBC - Plan Plan: -continue GI prophylaxis -continue IVF -begin DVT prophylaxis tomorrow -diet soft GI -activity: ambulate ad lamont
[2018-08-26] MEDS: Dronabinol 2.5 MG CAP PO SCH ×2 (08:07→17:27)
[2018-08-26] MEDS ORDERED: Calcium Acetate 667 MG CAP ONE (08:39)
[2018-08-26] MEDS ORDERED: Magnesium 2 GM/50 ML 4 GM in Premix Bag 1 BAG IVPB SCH (09:00)
[2018-08-26] MEDS: Escitalopram Oxalate 20 mg Tablet PO SCH (09:00)
[2018-08-26] MEDS: Aspirin Chewable 81 MG TAB PO SCH (09:00)
[2018-08-26] MEDS: Sodium Chloride 1 GM TAB PO SCH (09:00)
[2018-08-26] MEDS: Folic Acid 1 MG TAB PO SCH (09:00)
[2018-08-26] MEDS: Multivit, Therapeutic 1 TAB PO SCH (09:00)
[2018-08-26] MEDS: Potassium Citrate 10 MEQ TAB PO SCH (09:01)
[2018-08-26] MEDS: Carvedilol 6.25 MG TAB PO SCH ×3 (09:02→21:04)
[2018-08-26 09:12] LABS: Band 12 % (5-11); Eosinophils 2 % (0-10); Hypochromia SLIGHT = 6-15 cells (100X) (0-5/hpf); Lymphocytes 17 % (21-51); MDiff Complete? YES; Monocytes 2 % (0-10); Neutrophil 67 % (42-75); Platelet Morphology Comment Appears Increased; Polychromasia SLIGHT = 2-3 cells (100X) (0-2/hpf); Reflex for Review?? YES; Small Platelets MODERATE
[2018-08-26] MEDS ORDERED: Magnesium Sulfate 4 GM in Sodium Chloride 0.9% 250 ML 250 ML IVPB SCH (09:15)
[2018-08-26] MEDS: cefTRIAXone\\ROCEPHIN 1 GM in Sodium Chloride 0.9% 100 ML IVPB SCH (10:52)
--- NOTE | 2018-08-26 13:05 | PRG ---
DATE OF SERVICE: 08/26/2018 SUBJECTIVE: Ms. Kwan's pain is improved. She did vomit once this morning. She feels more bloated than normal. OBJECTIVE: VITAL SIGNS: She is afebrile. Her pulse is running about 100. Vital signs are stable. Ostomy output was 700 yesterday. ABDOMEN: Minimally distended. The wounds are healing well. Her ostomy is viable. LABORATORY DATA: White blood cell count is 24, hemoglobin is 7.8, and platelets are 1039. Creatinine is 0.90. ASSESSMENT AND PLAN: Postop revision of ostomy. Platelets are above a million now. Recommend aspirin a day for that. Await final cultures from abdominal fluid. Job ID: [id number]
--- NOTE | 2018-08-26 14:03 | PDOC.PN ---
- Subjective Encounter Start Date: 08/26/18 Encounter Start Time: 14:01 Subjective: Had an episode of emesis earlier today. -: tolerated tube feeding afterwards. Denied fever, nausea, or worsening pain. -: 1 days post ileostomy revision and drainage of paraostomy abscess. - Objective Resuscitation Status - Order Detail: 08/20/18 01:08 Resuscitation Status Routine Resuscitation Status: PRTL: Cardiac only Discussed with: Patient Additional comments: DNI. Everything but intubation. Vital Signs & Weight: Vital Signs (12 hours) Temp Pulse Resp BP BP Pulse Ox 08/26/18 12:57 109/74 08/26/18 11:48 97.8 F 103 H 20 109/70 95 08/26/18 09:02 118/75 08/26/18 07:45 94 L 08/26/18 07:24 97.8 F 99 16 118/75 95 08/26/18 04:00 98.2 F 113 H 16 118/57 L 93 L Weight Admit Weight 89 lb 12.8 oz Weight 103 lb 7 oz I&O: 08/25/18 08/26/18 08/27/18 06:59 06:59 06:59 Intake Total 3518 3720 Output Total 2300 550 Balance 1218 3170 Result Diagrams: 08/26/18 06:07 08/26/18 06:07 Phys Exam - Physical Examination Constitutional: NAD HEENT: PERRLA, moist MMs Neck: no JVD, supple Respiratory: no rhonchi fair air entry with few bibasal crackles Cardiovascular: RRR, no significant murmur Gastrointestinal: soft, no distention, positive bowel sounds ileostomy and PEG noted Musculoskeletal: no edema, pulses present Neurological: non-focal, moves all 4 limbs Psychiatric: A&O x 3 Dx/Plan (1) Abdominal abscess Code(s): [id number] - Status: Acute Comment: S/p ileostomy revision and drainage of parastomal abscess. (2) Sepsis Code(s): A41.9 - SEPSIS, UNSPECIFIED ORGANISM Status: Acute Comment: Continue IV ceftriaxone (3) Abnormal liver enzymes Code(s): R74.8 - ABNORMAL LEVELS OF OTHER SERUM ENZYMES Status: Acute Comment: Improving (4) Hypokalemia Code(s): E87.6 - HYPOKALEMIA Status: Acute (5) Neutrophilic leukocytosis Code(s): D72.9 - DISORDER OF WHITE BLOOD CELLS, UNSPECIFIED Status: Acute Comment: Improving slowly, continue Zosyn, Wound vac and local wound care, serial CBC (6) S/P ileostomy Code(s): Z93.2 - ILEOSTOMY STATUS Status: Acute Comment: As per surgery/ PCP. (7) Crohn's disease Code(s): K50.90 - CROHN'S DISEASE, UNSPECIFIED, WITHOUT COMPLICATIONS Status: Chronic Qualifiers: Gastrointestinal tract location: small and large intestine Comment: h/o ileocecectomy for stricture and adenocarcinoma- completely removed with clear margins (8) Thrombocytosis Status: Chronic (9) RUT (acute kidney injury) Code(s): N17.9 - ACUTE KIDNEY FAILURE, UNSPECIFIED Status: Resolved Comment : Resolved. (10) Hyponatremia Code(s): E87.1 - HYPO-OSMOLALITY AND HYPONATREMIA Status: Resolved (11) Hypomagnesemia Code(s): E83.42 - HYPOMAGNESEMIA Status: Acute - Plan Replete serum magnesium with 4 gram of magnesium sulphate -: Recheck electrolytes and replete as needed. -: Wean off oxygen -: DC IVF -: increase activity. * .
--- NOTE | 2018-08-26 19:10 | OP ---
DATE OF PROCEDURE: 08/25/2018 PREOPERATIVE DIAGNOSIS: Parastomal abscess. POSTOPERATIVE DIAGNOSIS: Parastomal abscess. PROCEDURES PERFORMED: Revision of ostomy with drainage of parastomal abscess (intraabdominal). ANESTHESIA: General. ESTIMATED BLOOD LOSS: Minimal. COMPLICATION: None. SPECIMEN: Cultures taken for anaerobes and aerobes. DESCRIPTION OF PROCEDURE: The patient was taken to the operating room, laid in supine position on the operating room table. After general anesthetic was obtained, the abdomen was prepped and draped in a sterile fashion. The ostomy devices had been removed. The ostomy mucosa was ellipsed out from the surrounding skin, and dissection was performed along the small bowel down towards the fascial defect. Care was taken to avoid injury to the small bowel. The abdomen was able to be entered on the inferior aspect. Circumferential dissection all the way around is able to be performed. There was a lot of adhesions superiorly in the area where the supposed abscess was. In this location, a spinal needle was used to aspirate this area, and it was found to have pus, bluntly it was entered using finger dissection. There was a lot of purulent material. This cultures were taken that was irrigated copiously. A quarter-inch [place] drain was stuffed down into the cavity, brought up against the ostomy. The ostomy was then matured in the usual fashion again using 3-0 Vicryl. An ostomy device was placed. The Kevin drain comes out along the edge of the ostomy and will be incorporated into the ostomy devices as well. The patient was sent to Recovery in stable condition. All instrument counts, needle counts, and lap counts are correct. Job ID: [id number]
[2018-08-26] MEDS: Sodium Chloride 0.9% 1,000 ML IV SCH (22:30)
[2018-08-26] MEDS: Ondansetron PF 4 MG/2 ML Vial IVP PRN (22:38)
--- NOTE | 2018-08-27 00:26 | PRG ---
DATE OF SERVICE: 08/26/2018 SUBJECTIVE: Ms. Kwan is mildly uncomfortable. She states she threw up some of her tube feed earlier today. She had surgery yesterday with a drain placed to her ostomy site into the peristomal abscess. MEDICATIONS: 1. Albuterol. 2. Aspirin. 3. Carvedilol. 4. Rocephin. 5. Marinol. 6. Lomotil. 7. Lexapro. 8. Folvite. 9. Fentanyl p.r.n. 10. Creon p.r.n. 11. Zofran p.r.n. 12. Protonix 40 daily. 13. Tramadol p.r.n. for pain. PHYSICAL EXAMINATION: GENERAL: She is resting in bed. She has no distress. She is a little bit uncomfortable. The patient is somewhat pale. VITAL SIGNS: Temperature is 99.4, pulse 113, blood pressure 122/75. HEENT: Oropharynx is moist. LUNGS: Clear. HEART: Regular rate and rhythm without clicks or murmurs. ABDOMEN: Soft. There is some fullness around the ostomy site. She has drainage [place] in her ostomy. EXTREMITIES: No clubbing, cyanosis, or edema. LABORATORY STUDIES: White count increased to 24,000, hemoglobin 7.8, platelet count 1039, 67 segs, 12 bands. Sodium 133, potassium 3.7, BUN and creatinine are 9 and 0.9, magnesium 0.8, calcium 7.7, alkaline phosphatase 267, albumin 2.6. Microbiology, Staph aureus growing from abdominal wound from 08/25. Cultures were pending from surgical site. ASSESSMENT: 1. History of Crohn's. No evidence of active disease. She is now off medications since just before Edith now. She was on Humira, previously, this was held for surgical resection and a malignancy in her ileum. 2. Status post resection and surgical malignancy. This was early stage, not requiring chemotherapy, this is T1 lesion. 3. Postoperatively, she had complications of wound dehiscence and anastomosis breakdown, has undergone a couple of surgeries for this. She has complications with [place], bloodstream infection from a PICC line. She has had complications of wound infection. Most recently, she had a peristomal abscess and underwent surgery yesterday for drainage of that. 4. Leukocytosis, thrombocytosis related to infection. 5. Elevated liver enzymes related to infection. RECOMMENDATIONS: Continue antibiotics. Her antibiotic coverage may need to be expanded to cover anaerobes. We will add Flagyl at this time and ask Dr. Martinez to re-evaluate the patient. Job ID: [id number]
[2018-08-27] MEDS: Ondansetron ODT 8 MG TAB PO SCH ×4 (04:04→21:35)
[2018-08-27] MEDS: Sodium Chloride 1 GM TAB PO SCH ×3 (04:05→21:35)
[2018-08-27] MEDS: Potassium Citrate 10 MEQ TAB PO SCH ×3 (04:05→21:35)
[2018-08-27] MEDS: Diphenoxylate HCl/Atropine Tablet PO SCH ×4 (04:05→14:48)
[2018-08-27 04:11] LABS: Bilirubin Negative (Negative); Blood, Urine Negative (Negative); Clarity CLEAR (Clear); Glucose, Urine (Dipstick) Negative (Negative); Leukocyte Negative (Negative); Nitrite Negative (Negative); Protein, Urine (Dipstick) Trace mg/dL (Neg-Trace); Specific Gravity, Urine 1.012 (1.002-1.036); Urobilinogen 0.2 mg/dL (0.2-1.0); pH, Urine 5.5 (5.0-9.0)
[2018-08-27 04:13] LABS: Urine Culture Reflex No No
[2018-08-27 04:14] LABS: Bacteria/HPF None Seen HPF (None Seen); Hyaline Casts/LPF 0-3 HYALINE CAST LPF (0-3 Hyaline); Squamous Epithelial 0-3 HPF (0-3)
[2018-08-27 05:01] LABS: #Basophils 0.1 thou/uL (0.0-0.2); #Eosinphils 0.2 thou/uL (0.0-0.7); #Lymphocytes 3.6 thou/uL (1.20-3.40); #Monocytes 1.8 thou/uL (0.11-0.59); %Basophils 0.3 % (0.0-1.0); %Eosinophils 0.9 % (0.0-10.0); %Lymphocytes 15.4 % (21.0-51.0); %Monocytes 7.5 % (0.0-10.0); Hemoglobin 7.1 g/dL (12.0-16.0); Mean Corpuscular HGB CONC 32.9 g/dL (32.0-36.0); Mean Corpuscular Hemoglobin 30.4 pg (27.0-31.0); Mean Corpuscular Volume 92.3 fL (78.0-98.0); Platelet Count 918 thou/uL (130-400); RBC Distribution Width 17.4 % (11.5-14.5); Red Blood Cell (RBC) Count 2.32 mill/uL (4.20-5.40); White Blood Cell (WBC) Count 23.6 thou/uL (4.8-10.8)
[2018-08-27 05:20] LABS: ALT (SGPT) 14 U/L (8-55); AST (SGOT) 16 U/L (5-34); Albumin 2.5 g/dL (3.5-5.0); Alkaline Phosphatase 208 U/L (40-150); Anion Gap 13 mmol/L (10-20); BUN (Urea Nitrogen) 7 mg/dL (9.8-20.1); Bilirubin, Total 0.5 mg/dL (0.2-1.2); Calc. Creatinine Clearance 55 mL/min (70-130); Calcium 7.9 mg/dL (7.8-10.44); Carbon Dioxide 23 mmol/L (22-29); Chloride 98 mmol/L (98-107); Estimated GFR-MDRD 68; Globulin 3.2 g/dL (2.4-3.5); Glucose 94 mg/dL (70-105); Magnesium 1.6 mg/dL (1.6-2.6); Potassium 3.8 mmol/L (3.5-5.1); Protein, Total 5.7 g/dL (6.0-8.3); Sodium 130 mmol/L (136-145)
[2018-08-27] MEDS ORDERED: metroNIDAZOLE 500 MG in Premix Bag 1 BAG IVPB SCH (06:00)
[2018-08-27] MEDS: Ondansetron PF 4 MG/2 ML Vial IVP PRN ×2 (07:02→21:18)
[2018-08-27] MEDS: Dronabinol 2.5 MG CAP PO SCH ×2 (08:17→14:48)
[2018-08-27] MEDS: Aspirin Chewable 81 MG TAB PO SCH (09:00)
[2018-08-27] MEDS: Escitalopram Oxalate 20 mg Tablet PO SCH (09:01)
[2018-08-27] MEDS: Carvedilol 6.25 MG TAB PO SCH ×2 (09:01→21:35)
[2018-08-27] MEDS: Folic Acid 1 MG TAB PO SCH (09:02)
[2018-08-27] MEDS: Multivit, Therapeutic 1 TAB PO SCH (09:03)
--- NOTE | 2018-08-27 09:10 | PRG ---
DATE OF SERVICE: 08/27/2018 SUBJECTIVE: Ms. Kwan does not feel as good today. She feels bloated. She is having some dry heaving this morning. OBJECTIVE: VITAL SIGNS: Her pulse is 89, blood pressure is 114/60, respirations 16, and she is afebrile. Stool 525 for the day, multiple voids. ABDOMEN: More distended, but she does have bowel sounds. She does have some stool in her bag. LABORATORY DATA: White blood cell count is 23, hemoglobin 7, platelets are 918, normal differential today. Creatinine is 0.87. Sodium 130. ASSESSMENT: Postop day 2, revision of ostomy with drainage of peristomal abscess. Long history of Crohn's with invasive adenocarcinoma to terminal ileum, on recent ileocecectomy. PLAN: Her [place] is draining this parastomal abscess. Her infectious count is elevated slightly that is not surprising. I suspected to trend down over the next few days. We will hold tube feeds today. I suspect some of her bloating is from edema at her ostomy site now that I have had to revise it. We will allow for clear liquids as tolerated. Job ID: [id number]
[2018-08-27] MEDS ORDERED: Magnesium Sulfate 4 GM in Sodium Chloride 0.9% 250 ML 250 ML IVPB SCH (11:45)
[2018-08-27] MEDS ORDERED: Piperacillin/Tazobactam 3.375 GM in Sodium Chloride 0.9% 100 ML IVPB SCH (12:00)
[2018-08-27] MEDS: Sodium Chloride 0.9% 1,000 ML IV SCH (12:36)
--- NOTE | 2018-08-27 12:40 | PDOC.PN ---
- Subjective Encounter Start Date: 08/27/18 Encounter Start Time: 12:39 Subjective: Developed nausea and vomiting yesterday 08/26/2018 associated with -: abdominal discomfort. Now on clear liquid. - Objective Resuscitation Status - Order Detail: 08/20/18 01:08 Resuscitation Status Routine Resuscitation Status: PRTL: Cardiac only Discussed with: Patient Additional comments: DNI. Everything but intubation. Vital Signs & Weight: Vital Signs (12 hours) Temp Pulse Resp BP BP Pulse Ox 08/27/18 11:16 98.4 F 94 18 121/76 94 L 08/27/18 09:01 109/74 08/27/18 07:17 98.0 F 89 16 114/60 95 08/27/18 04:49 98.1 F 95 16 106/70 98 Weight Admit Weight 89 lb 12.8 oz Weight 103 lb 7 oz I&O: 08/26/18 08/27/18 08/28/18 06:59 06:59 06:59 Intake Total 3720 3140 Output Total 550 1300 Balance 3170 1840 Result Diagrams: 08/27/18 03:58 08/27/18 03:58 Phys Exam - Physical Examination afebrile but fatigued HEENT: PERRLA, moist MMs Neck: no JVD, supple Respiratory: no rhonchi fair air entry bilaterally with crackles on the both bases especially right Cardiovascular: RRR naveen stomal fullness and tenderness. Musculoskeletal: no edema, pulses present Neurological: non-focal, moves all 4 limbs Psychiatric: A&O x 3 Dx/Plan (1) Abdominal abscess Code(s): [id number] - Status: Acute Comment: S/p ileostomy revision and drainage of parastomal abscess. (2) Sepsis Code(s): A41.9 - SEPSIS, UNSPECIFIED ORGANISM Status: Acute (3) Abnormal liver enzymes Code(s): R74.8 - ABNORMAL LEVELS OF OTHER SERUM ENZYMES Status: Acute Comment: Improving (4) Hypokalemia Code(s): E87.6 - HYPOKALEMIA Status: Acute (5) Neutrophilic leukocytosis Code(s): D72.9 - DISORDER OF WHITE BLOOD CELLS, UNSPECIFIED Status: Acute Comment: Improving slowly, continue Zosyn, Wound vac and local wound care, serial CBC (6) S/P ileostomy Code(s): Z93.2 - ILEOSTOMY STATUS Status: Acute Comment: As per surgery/ PCP. (7) Crohn's disease Code(s): K50.90 - CROHN'S DISEASE, UNSPECIFIED, WITHOUT COMPLICATIONS Status: Chronic Qualifiers: Gastrointestinal tract location: small and large intestine Comment: h/o ileocecectomy for stricture and adenocarcinoma- completely removed with clear margins (8) Thrombocytosis Status: Chronic (9) RUT (acute kidney injury) Code(s): N17.9 - ACUTE KIDNEY FAILURE, UNSPECIFIED Status: Resolved Comment : Resolved. (10) Hyponatremia Code(s): E87.1 - HYPO-OSMOLALITY AND HYPONATREMIA Status: Resolved Comment: appropriate ADH vs inapropriate ADH scretion (11) Hypomagnesemia Code(s): E83.42 - HYPOMAGNESEMIA Status: Acute (12) Nausea & vomiting Code(s): R11.2 - NAUSEA WITH VOMITING, UNSPECIFIED Status: Resolved Qualifiers: Vomiting type: unspecified Vomiting Intractability: intractable Qualified Code(s): R11.2 - Nausea with vomiting, unspecified - Plan continue current antibiotic zosyn. -: give 4 gram of magnesium sulphate. -: clear liquid as tolerated. -: Get urine osmolality. * .
[2018-08-27] MEDS: traMADol HCl 50 MG TAB PO PRN (12:57)
[2018-08-27 13:38] LABS: Iron 8 ug/dL (50-170); Iron Binding Capacity, Total 195 mcg/dL (265-497)
[2018-08-27] MEDS ORDERED: cefTRIAXone\\ROCEPHIN 2 GM in Sodium Chloride 0.9% 100 ML IVPB SCH (14:00)
[2018-08-27] MEDS: metroNIDAZOLE 500 MG in Premix Bag 1 BAG IVPB SCH ×2 (14:41→21:25)
--- NOTE | 2018-08-27 18:02 | EKG ---
Test Reason : Blood Pressure : / mmHG Vent. Rate : 111 BPM Atrial Rate : 111 BPM P-R Int : 112 ms QRS Dur : 066 ms QT Int : 340 ms P-R-T Axes : -20 074 076 degrees QTc Int : 462 ms Sinus tachycardia Otherwise normal ECG Confirmed by PARESH CARRERA DO ([id number]), film and video editor ILIANA SWEENEY ([id number]) on 08/27/2018 6:02:10 PM Referred By: Confirmed By:PARESH CARRERA DO
[2018-08-28] MEDS: Diphenoxylate HCl/Atropine Tablet PO SCH ×4 (00:05→18:20)
[2018-08-28] MEDS ORDERED: Ketorolac Tromethamine 30 MG/ML VIAL IVP SCH (00:45)
[2018-08-28] MEDS ORDERED: diphenhydrAMINE 50 MG/ML VIAL IVP SCH (00:45)
[2018-08-28] MEDS: Ondansetron ODT 8 MG TAB PO SCH ×4 (05:43→21:47)
[2018-08-28] MEDS: metroNIDAZOLE 500 MG in Premix Bag 1 BAG IVPB SCH (06:24)
[2018-08-28] MEDS: Ondansetron PF 4 MG/2 ML Vial IVP PRN ×3 (06:30→18:14)
[2018-08-28 07:12] LABS: ALT (SGPT) 10 U/L (8-55); AST (SGOT) 13 U/L (5-34); Albumin 2.3 g/dL (3.5-5.0); Alkaline Phosphatase 184 U/L (40-150); Anion Gap 10 mmol/L (10-20); BUN (Urea Nitrogen) 6 mg/dL (9.8-20.1); Bilirubin, Total 0.3 mg/dL (0.2-1.2); Calc. Creatinine Clearance 64 mL/min (70-130); Calcium 8.2 mg/dL (7.8-10.44); Carbon Dioxide 23 mmol/L (22-29); Chloride 101 mmol/L (98-107); Estimated GFR-MDRD 81; Globulin 3.2 g/dL (2.4-3.5); Glucose 78 mg/dL (70-105); Hemoglobin 6.8 g/dL (12.0-16.0); Mean Corpuscular HGB CONC 31.6 g/dL (32.0-36.0); Mean Corpuscular Hemoglobin 30.4 pg (27.0-31.0); Mean Corpuscular Volume 96.2 fL (78.0-98.0); Potassium 3.4 mmol/L (3.5-5.1); Protein, Total 5.5 g/dL (6.0-8.3); Red Blood Cell (RBC) Count 2.24 mill/uL (4.20-5.40); Sodium 131 mmol/L (136-145)
[2018-08-28 08:49] LABS: #Basophils 0.1 thou/uL (0.0-0.2); #Eosinphils 0.5 thou/uL (0.0-0.7); #Lymphocytes 2.6 thou/uL (1.20-3.40); #Monocytes 1.5 thou/uL (0.11-0.59); #Neutrophils 14.5 thou/uL (1.40-6.50); %Basophils 0.6 % (0.0-1.0); %Eosinophils 2.6 % (0.0-10.0); %Lymphocytes 13.5 % (21.0-51.0); %Monocytes 7.6 % (0.0-10.0); %Neutrophils 75.7 % (42.0-75.0); Hypochromia SLIGHT = 6-15 cells (100X) (0-5/hpf); MDiff Complete? YES; Mean Platelet Volume 6.6 fL (7.4-10.4); Microcytosis MODERATE=15-30 cells (100X) (0-5/hpf); Platelet Count 926 thou/uL (130-400); Platelet Morphology Comment Appears Increased; White Blood Cell (WBC) Count 19.2 thou/uL (4.8-10.8)
--- NOTE | 2018-08-28 09:17 | PRG ---
DATE OF SERVICE: 08/28/2018 SUBJECTIVE: Ms. Kwan is complaining of mild persistent nausea. It is better than yesterday. She did not walk yesterday, she did not feel like. PHYSICAL EXAMINATION: VITAL SIGNS: Her blood pressure is 124/71, pulse 85, respirations 14. She is afebrile. Her ostomy output for the day was 900. ABDOMEN: Soft and minimally distended, but she has active bowel sounds. She has air and stool in her bag. LABORATORY DATA: Her infectious count today is 19, hemoglobin 6.8, platelet count is 926. ASSESSMENT: Postoperative parastomal abscess drainage with a persistent mild expected postoperative ileus. PLAN: Continue clears. Hold tube feeds for today as well. I switched her over to Zosyn. Flagyl has caused nausea on her in the past. She is dizzy when she walks. We will give her 1 unit of blood today. Job ID: [id number]
[2018-08-28] MEDS: Aspirin Chewable 81 MG TAB PO SCH (09:18)
[2018-08-28] MEDS: Escitalopram Oxalate 20 mg Tablet PO SCH (09:19)
[2018-08-28] MEDS: Carvedilol 6.25 MG TAB PO SCH ×2 (09:19→21:47)
[2018-08-28] MEDS: Multivit, Therapeutic 1 TAB PO SCH (09:23)
[2018-08-28] MEDS: Folic Acid 1 MG TAB PO SCH (09:23)
[2018-08-28] MEDS: Sodium Chloride 1 GM TAB PO SCH ×2 (09:24→21:47)
[2018-08-28] MEDS: Potassium Citrate 10 MEQ TAB PO SCH ×2 (09:24→21:47)
[2018-08-28] MEDS: Dronabinol 2.5 MG CAP PO SCH ×2 (09:31→16:31)
--- NOTE | 2018-08-28 12:14 | PRG ---
DATE OF SERVICE: 08/28/2018 SUBJECTIVE: The patient was seen and examined at bedside. She is nauseated even with clear liquid. She has some continuous abdominal discomfort. OBJECTIVE: VITAL SIGNS: Blood pressure is 124/71, pulse is 85, temperature is 97.8, respiratory rate is 14, and O2 saturation is 96% on 2 L by nasal cannula. HEENT: Head is atraumatic and normocephalic. Conjunctivae are pale. Oral mucosa is moist. SKIN: Looks pale. NECK: Supple. LUNGS: Clear. HEART: S1 and S2 normal. ABDOMEN: Soft, but tender mostly in the area of ostomy and drain is in place. Bowel sounds present, somewhat sluggish. EXTREMITIES: No clubbing, cyanosis, or edema. NEUROLOGIC: She is alert and oriented x4. There is no any motor deficits. LABORATORY DATA: White count of 19.2, hemoglobin 6.8, hematocrit 21.6, and platelet count is 926,000. Sodium of 131, potassium 3.4, chloride 101, CO2 of 23, BUN 6, creatinine 0.75. Iron 8, total iron binding capacity 195, ferritin 371.8. Microbiology, no growth on urine sample done yesterday. IMPRESSION: 1. Abdominal abscess, status post ileostomy revision and drainage of the parastomal abscess. 2. Sepsis. 3. Abnormal liver enzymes, improving. 4. Hypokalemia. 5. Anemia. Her hemoglobin is down to 6.8 this morning. General Surgery ordered 1 unit of packed red blood cells. 6. Crohn disease. 7. 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 8. Thrombocytosis. 9. Acute kidney injury, resolved. 10. Hyponatremia. 11. Hypomagnesemia corrected. PLAN: We are going to discuss the case with Dr. Martinez. The patient is on Rocephin and metronidazole at this point. Apparently, she had some issues in the past with metronidazole, by the regimen, she needs to be on. For now, she is on clear liquids, to continue, and no tube feeding, just giving more time for the GI system to recover. Job ID: [id number]
[2018-08-28] MEDS ORDERED: Linezolid 600 MG in Premix Bag 1 BAG IVPB SCH (13:00)
[2018-08-28] MEDS: Piperacillin/Tazobactam 3.375 GM in Sodium Chloride 0.9% 100 ML IVPB SCH ×3 (14:35→21:35)
[2018-08-28] MEDS: Sodium Chloride 0.9% 1,000 ML IV SCH (14:36)
[2018-08-28] MEDS: Promethazine HCl 25 MG/ML VIAL IM PRN (21:33)
[2018-08-29] MEDS: Ondansetron PF 4 MG/2 ML Vial IVP PRN ×3 (01:53→15:13)
[2018-08-29] MEDS: Sodium Chloride 0.9% 1,000 ML IV SCH ×4 (01:56→19:51)
[2018-08-29] MEDS: Diphenoxylate HCl/Atropine Tablet PO SCH ×4 (01:56→17:03)
[2018-08-29] MEDS: Piperacillin/Tazobactam 3.375 GM in Sodium Chloride 0.9% 100 ML IVPB SCH ×4 (03:01→20:16)
[2018-08-29] MEDS: Promethazine HCl 25 MG/ML VIAL IM PRN ×4 (03:01→20:16)
[2018-08-29] MEDS: Ondansetron ODT 8 MG TAB PO SCH ×4 (04:58→19:55)
[2018-08-29] MEDS: Linezolid 600 MG in Premix Bag 1 BAG IVPB SCH ×2 (04:59→17:36)
[2018-08-29] MEDS: Dronabinol 2.5 MG CAP PO SCH ×2 (06:44→16:19)
[2018-08-29] MEDS: Aspirin Chewable 81 MG TAB PO SCH (08:32)
[2018-08-29] MEDS: Carvedilol 6.25 MG TAB PO SCH ×3 (08:32→21:19)
[2018-08-29] MEDS: Folic Acid 1 MG TAB PO SCH (08:32)
[2018-08-29] MEDS: Escitalopram Oxalate 20 mg Tablet PO SCH (08:32)
[2018-08-29] MEDS: Multivit, Therapeutic 1 TAB PO SCH (08:32)
[2018-08-29] MEDS: Sodium Chloride 1 GM TAB PO SCH ×2 (08:33→19:55)
[2018-08-29] MEDS: Potassium Citrate 10 MEQ TAB PO SCH ×2 (08:33→19:55)
[2018-08-29] MEDS ORDERED: Ketorolac Tromethamine 30 MG/ML VIAL IVP PRN (08:48)
--- NOTE | 2018-08-29 09:15 | PRG ---
DATE OF SERVICE: 08/29/2018 SUBJECTIVE: The patient is seen and examined at the bedside. She is still getting nauseated each time she tries to drink some fluids. Her abdominal pain is somewhat better this morning. Apparently, Dr. Hickey decided to start her on TPN, so she is going to get the PICC line this morning, then will be started on TPN. OBJECTIVE: VITAL SIGNS: Blood pressure is 107/84, pulse is 84, temperature is 98.4, respiratory rate is 16, O2 saturation is 97% on 2 L by nasal cannula. HEENT: Her head is atraumatic and normocephalic. Eyes are PERRLA. Sclerae are nonicteric. Conjunctivae palish. Oral mucosa is moist. NECK: Supple. LUNGS: Clear. HEART: S1 and S2 normal. ABDOMEN: Bowel sounds are sluggish. The drain is in place. Tenderness around the stoma diminished. No guarding. EXTREMITIES: No clubbing, cyanosis, or edema. NEUROLOGIC: She is alert and oriented x4. There is no any motor or sensory deficits present. Cranial nerves are intact. LABORATORY DATA: None today. IMPRESSION: 1. Abdominal abscess, status post ileostomy revision and drainage of the parastomal abscess. She is growing Enterococcus faecium, which is sensitive to vancomycin on her specimen from the abscess, some growth of Staphylococcus aureus sensitive to . 2. Abnormal liver enzymes, improving. 3. Hypokalemia. 4. Anemia, status post transfusion of 1 unit of packed red blood cells. 5. Crohn disease. 6. 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 7. Thrombocytosis. 8. Acute kidney injury, resolved. 9. Hyponatremia. 10. Hypomagnesemia, corrected. PLAN: The patient is going to have an PICC line placed this morning and she is going to be started on TPN. Her antibiotics regimen was changed and she is going to be on linezolid 600 mg twice a day IV piggyback and Zosyn 3.375 g every 6 hours. Metronidazole was stopped. We will see whether we can use Tylenol IV for the pain control since she does not want to use fentanyl. We will try to get PT involved. Job ID: [id number]
[2018-08-29] MEDS: Saccharomyces boulardii 250 MG CAP PO SCH (09:49)
--- NOTE | 2018-08-29 10:18 | PRG ---
DATE OF SERVICE: 08/29/2018 SUBJECTIVE: Ms. Kwan has persistent nausea, only mildly improved with Phenergan. She has had minimal p.o. intake including clear liquids and her tube feeds have been off for a few days. Dr. Martinez started Zyvox for enterococcus. OBJECTIVE: VITAL SIGNS: She is afebrile. Her vital signs are stable. ABDOMEN: Her ostomy output has been 700 to 900 per 24 hours. Her abdomen is soft, minimally distended, but she has active bowel sounds. She has air and enteric contents in her bag. Her [place] drain is still intact. LABORATORY DATA: Her labs are still pending for the day. ASSESSMENT: Persistent nausea after recent revision of ostomy, was found to have an enterococcus on her abdominal parastomal abscess, now on Zyvox and Zosyn. PLAN: Replace PICC line, start TPN today, probably have to do another abdominal CAT scan based on the results of her labs today if her white count is persistently elevated. Job ID: [id number]
[2018-08-29 12:35] LABS: Hemoglobin 8.8 g/dL (12.0-16.0); Mean Corpuscular Hemoglobin 30.7 pg (27.0-31.0); Mean Platelet Volume 6.2 fL (7.4-10.4); Platelet Count 1030 thou/uL (130-400); RBC Distribution Width 16.2 % (11.5-14.5); Red Blood Cell (RBC) Count 2.88 mill/uL (4.20-5.40); White Blood Cell (WBC) Count 13.4 thou/uL (4.8-10.8)
[2018-08-29 12:53] LABS: #Basophils 0.1 thou/uL (0.0-0.2); #Eosinphils 0.2 thou/uL (0.0-0.7); #Lymphocytes 1.9 thou/uL (1.20-3.40); #Monocytes 0.9 thou/uL (0.11-0.59); #Neutrophils 10.4 thou/uL (1.40-6.50); %Basophils 0.6 % (0.0-1.0); %Eosinophils 1.4 % (0.0-10.0); %Monocytes 6.6 % (0.0-10.0); %Neutrophils 77.5 % (42.0-75.0); Anisocytosis SLIGHT = 6-15 cells (100X) (0-5/hpf); MDiff Complete? YES; Platelet Morphology Comment Appears Increased
[2018-08-29 12:55] LABS: ALT (SGPT) 10 U/L (8-55); AST (SGOT) 14 U/L (5-34); Albumin 2.6 g/dL (3.5-5.0); Alkaline Phosphatase 216 U/L (40-150); Anion Gap 11 mmol/L (10-20); BUN (Urea Nitrogen) Less than 4 mg/dL (9.8-20.1); Bilirubin, Total 0.6 mg/dL (0.2-1.2); Calc. Creatinine Clearance 59 mL/min (70-130); Calcium 8.3 mg/dL (7.8-10.44); Carbon Dioxide 25 mmol/L (22-29); Chloride 100 mmol/L (98-107); Estimated GFR-MDRD 74; Globulin 3.4 g/dL (2.4-3.5); Glucose 94 mg/dL (70-105); Sodium 133 mmol/L (136-145)
--- NOTE | 2018-08-29 13:57 | SPC ---
LEFT UPPER EXTREMITY ULTRASOUND GUIDED PICC PLACEMENT: 08/29/2018 HISTORY: Colostomy infection, in need of IV antibiotics. TPN access requested. TECHNIQUE: Informed consent obtained prior to the procedure. Left antecubital fossa prepped and draped in the n ormal sterile fashion and skin overlying the left basilic vein anesthetized with 1% buffered Lidocain e. With direct sonographic guidance, vascular access is obtained via the left basilic vein, and an 0.018 wire is advanced to the cavoatrial junction. Intravascular length is calculated at 40 cm, and the P ICC was cut accordingly. The needle was removed and replaced with a peel-away sheath. The PICC was advanced over the wire. The peel-away sheath and wire were removed. The tip of the catheter overlie s the cavoatrial junction. A dual lumen PICC was placed. Both ports flushed well, and the catheter is ready for use. EXPOSURE DATA: 0.0 minutes of fluoroscopic time. 213 mGy per cm2. IMPRESSION: Successful ultrasound-guided placement of a dual-lumen left upper extremity peripherally inserted norman tral catheter. POS: [facility]
[2018-08-29] MEDS: [UNRECOGNIZED DRUG - OTHER] IV SCH (15:18)
[2018-08-29] MEDS: POTASSIUM ACETATE IV SCH (15:18)
[2018-08-29] MEDS: SODIUM ACETATE IV SCH (15:18)
--- NOTE | 2018-08-29 17:24 | PRG ---
DATE OF SERVICE: 08/29/2018 SUBJECTIVE: Ms. Kwan had a surgical drainage for parastomal abscess by Dr. Hickey. She has a drain in place. She feels better with less nausea. She is started on TPN. Still hard to swallow foods. No cough. No chest pain. Little abdominal pain. OBJECTIVE: VITAL SIGNS: T-max 98.7, blood pressure 150/80, pulse 83, respirations 12, O2 saturation 95%. GENERAL: Appears in no distress. HEENT: Ocular movements are conjugate. LUNGS: Clear. HEART: S1 and S2. Regular rate. ABDOMEN: Soft with ileostomy. LABORATORY DATA: White cell count down to 13.4, hemoglobin 8.8, platelets 1030 with 77% neutrophils. Microbiology with Enterococcus faecium, 2 anaerobes, and Staphylococcus aureus. She is currently on Zosyn and Zyvox, to be continued for protracted period of time and weekly monitoring of CBC, comprehensive metabolic panel, and C-reactive protein. Job ID: [id number] MTDD
[2018-08-29] MEDS: traMADol HCl 50 MG TAB PO PRN (21:25)
[2018-08-30] MEDS: Diphenoxylate HCl/Atropine Tablet PO SCH ×5 (00:55→23:31)
[2018-08-30] MEDS: Piperacillin/Tazobactam 3.375 GM in Sodium Chloride 0.9% 100 ML IVPB SCH ×4 (02:55→20:38)
[2018-08-30] MEDS: Ondansetron ODT 8 MG TAB PO SCH ×4 (03:43→20:38)
[2018-08-30] MEDS: Linezolid 600 MG in Premix Bag 1 BAG IVPB SCH ×2 (04:58→15:57)
[2018-08-30] MEDS: Dronabinol 2.5 MG CAP PO SCH ×3 (07:33→15:58)
[2018-08-30] MEDS: Saccharomyces boulardii 250 MG CAP PO SCH (08:54)
[2018-08-30] MEDS: Carvedilol 6.25 MG TAB PO SCH ×2 (08:55→20:38)
[2018-08-30] MEDS: Escitalopram Oxalate 20 mg Tablet PO SCH (08:55)
[2018-08-30] MEDS: Ondansetron PF 4 MG/2 ML Vial IVP PRN (08:55)
[2018-08-30] MEDS: Aspirin Chewable 81 MG TAB PO SCH (08:55)
[2018-08-30] MEDS: Potassium Citrate 10 MEQ TAB PO SCH ×2 (08:56→20:40)
[2018-08-30] MEDS: Folic Acid 1 MG TAB PO SCH (08:56)
[2018-08-30] MEDS: Multivit, Therapeutic 1 TAB PO SCH (08:56)
[2018-08-30] MEDS: Sodium Chloride 1 GM TAB PO SCH ×2 (08:56→20:40)
--- NOTE | 2018-08-30 09:43 | PRG ---
DATE OF SERVICE: 08/30/2018 SUBJECTIVE: The patient is seen and examined at bedside. She seems to be doing much better. No nausea this morning. No abdominal pain that much. OBJECTIVE: VITAL SIGNS: Blood pressure is 150/73, pulse is 83, respiratory rate is 15, temperature 98, and O2 saturation is 93% on 2 L by nasal cannula. HEENT: Her head is atraumatic and normocephalic. Eyes are PERRLA. Sclerae are nonicteric. Conjunctivae palish. Oral mucosa is moist. LUNGS: Clear. HEART: S1 and S2 normal. ABDOMEN: There is a liquidy stool in the ostomy bag. Abdomen is not tender to palpation. Bowel sounds are present. EXTREMITIES: No clubbing, cyanosis, or edema. NEUROLOGICAL: She follows my commands. She moves her all four extremities. There are no any motor deficits. LABORATORY DATA: Pending. IMPRESSION: 1. Abdominal abscess, status post ileostomy revision and drainage of the parastomal abscess. The specimen is growing Enterococcus faecium and Staphylococcus aureus, methicillin sensitive. 2. Abnormal liver enzymes, improving. 3. Hypokalemia, still problem. Apparently, she was not able to take any potassium orally, but the nurse failed to notify the doctor about this finding, so this could be substituted with IV potassium supplementation. 4. Anemia, status post transfusion of 1 unit of packed red blood cells. 5. Crohn disease. 6. History of adenocarcinoma. 7. Thrombocytosis. 8. Acute kidney injury, resolved. 9. Hyponatremia. 10. Hypomagnesemia, corrected. PLAN: The patient got the PICC line. She is started on TPN. She is going to continue her Zosyn and linezolid. We will make sure that she is on aspirin since her platelets level up more than one million. IV fluids and continue pain management as before. Job ID: [id number]
[2018-08-30 09:59] LABS: Anion Gap 12 mmol/L (10-20); BUN (Urea Nitrogen) 9 mg/dL (9.8-20.1); Calc. Creatinine Clearance 64 mL/min (70-130); Calcium 8.6 mg/dL (7.8-10.44); Carbon Dioxide 28 mmol/L (22-29); Chloride 97 mmol/L (98-107); Estimated GFR-MDRD 81; Glucose 124 mg/dL (70-105); Potassium 3.4 mmol/L (3.5-5.1); Sodium 134 mmol/L (136-145)
[2018-08-30 10:01] LABS: ALT (SGPT) 11 U/L (8-55); AST (SGOT) 19 U/L (5-34); Albumin 2.7 g/dL (3.5-5.0); Alkaline Phosphatase 265 U/L (40-150); Bilirubin, Direct 0.2 mg/dL (0.1-0.3); Bilirubin, Total 0.3 mg/dL (0.2-1.2); Protein, Total 6.3 g/dL (6.0-8.3)
[2018-08-30] MEDS ORDERED: Potassium Chloride 10 MEQ in Premix Bag 1 BAG IVPB SCH ×2 (10:45→11:00)
[2018-08-30] MEDS: [UNRECOGNIZED DRUG - OTHER] IV SCH (13:12)
[2018-08-30] MEDS: SODIUM ACETATE IV SCH (13:12)
[2018-08-30] MEDS: POTASSIUM ACETATE IV SCH (13:12)
--- NOTE | 2018-08-30 16:38 | PDOC.GSPN ---
Surgery Progress Note: Subj - Subjective Patient reports: no new complaints (Her nausea is much improved today) Surgery Progress Note: Obj - Vital signs Vital signs: Vital Signs - Most Recent Temp Pulse Resp BP Pulse Ox 97.8 F 78 16 159/81 H 97 08/30/18 15:32 08/30/18 15:32 08/30/18 15:32 08/30/18 15:32 08/30/18 15:32 - Physical Exam General: no distress Cardiovascular: regular rate and rhythm Respiratory: clear to auscultation Abdomen: soft, non tender Wound: healing well, ostomy/colostomy (viable with stool in bag) Surgery Progress Note: Results - Labs Result Diagrams: 08/29/18 12:17 08/30/18 09:14 Lab results: Laboratory Results - last 24 hr 08/30/18 08/30/18 08/30/18 06:25 09:14 09:14 Sodium 134 L Potassium 3.4 L Chloride 97 L Carbon Dioxide 28 Anion Gap 12 BUN 9 L Creatinine 0.75 Estimated GFR (MDRD) 81 Glucose 124 H POC Glucose 155 H Calcium 8.6 Magnesium 2.0 Total Bilirubin 0.3 Direct Bilirubin 0.2 AST 19 ALT 11 Alkaline Phosphatase 265 H Serum Total Protein 6.3 Albumin 2.7 L 08/30/18 10:54 Sodium Potassium Chloride Carbon Dioxide Anion Gap BUN Creatinine Estimated GFR (MDRD) Glucose POC Glucose 130 H Calcium Magnesium Total Bilirubin Direct Bilirubin AST ALT Alkaline Phosphatase Serum Total Protein Albumin Surgery Progress Note: A/P - Problem (1) Abdominal abscess Current Visit: Yes Code(s): [id number] - Status: Acute - Plan Plan: Nausea improved -restart TF tomorrow if no nausea -allow GI soft -cont tpn
--- NOTE | 2018-08-30 19:29 | PRG ---
DATE OF SERVICE: 08/30/2018 SUBJECTIVE: Ms. Kwan is feeling better. Nausea is better. She has had no fever. She has been changed over to Zosyn. OBJECTIVE: VITAL SIGNS: Temperature 97, pulse 78, and blood pressure 159/81. LUNGS: Clear. ABDOMEN: Soft, nontender. Ostomy site softer. LABORATORY STUDIES: Yesterday, white count was 13, platelets still elevated at 1030. Sodium is 134, potassium 3.4, BUN and creatinine 9 and 0.7. Liver function tests normal. Alkaline phosphatase 265. She is on TPN. ASSESSMENT: 1. History of Crohn's. 2. History of ileal malignancy resected with postop wound infection leak that required diverting ileostomy, recent problems with peristomal abscess, now drained. 3. Crohn's. She has been off medicines for about 3 months now. 4. She had recent fungemia related to a PICC line, which was treated. 5. Persistent reactive thrombocytosis. Concerns would include inflammation on her ostomy, recent fungemia, possibly partially treated and her Crohn's. PLAN: We will talk with Dr. Martinez, consider re-culturing her for fungus. If these are negative, then restarting her anti-TNF back. some reluctance to start TNF back with no overt Crohn's findings and severe thrombocytosis and the recent history of fungemia in the past couple of months. Job ID: [id number]
[2018-08-31] MEDS: Piperacillin/Tazobactam 3.375 GM in Sodium Chloride 0.9% 100 ML IVPB SCH ×4 (02:53→20:49)
[2018-08-31] MEDS: Ondansetron ODT 8 MG TAB PO SCH ×2 (02:54→09:19)
[2018-08-31] MEDS: Linezolid 600 MG in Premix Bag 1 BAG IVPB SCH ×2 (05:21→16:33)
[2018-08-31] MEDS: Diphenoxylate HCl/Atropine Tablet PO SCH ×3 (05:25→19:29)
[2018-08-31] MEDS: Dronabinol 2.5 MG CAP PO SCH ×2 (06:51→20:49)
[2018-08-31 07:40] LABS: Anion Gap 13 mmol/L (10-20); BUN (Urea Nitrogen) 14 mg/dL (9.8-20.1); Calc. Creatinine Clearance 65 mL/min (70-130); Calcium 8.7 mg/dL (7.8-10.44); Carbon Dioxide 32 mmol/L (22-29); Chloride 96 mmol/L (98-107); Estimated GFR-MDRD 83; Glucose 85 mg/dL (70-105); Potassium 3.7 mmol/L (3.5-5.1); Sodium 137 mmol/L (136-145)
[2018-08-31] MEDS: Aspirin Chewable 81 MG TAB PO SCH (08:19)
[2018-08-31] MEDS: Carvedilol 6.25 MG TAB PO SCH ×2 (08:19→20:50)
[2018-08-31] MEDS: Folic Acid 1 MG TAB PO SCH (08:20)
[2018-08-31] MEDS: Potassium Citrate 10 MEQ TAB PO SCH ×2 (08:20→20:52)
[2018-08-31] MEDS: Multivit, Therapeutic 1 TAB PO SCH (08:20)
[2018-08-31] MEDS: Escitalopram Oxalate 20 mg Tablet PO SCH (08:20)
[2018-08-31] MEDS: Saccharomyces boulardii 250 MG CAP PO SCH (08:20)
[2018-08-31] MEDS: Sodium Chloride 1 GM TAB PO SCH ×2 (08:20→20:52)
[2018-08-31] MEDS ORDERED: Ondansetron ODT 8 MG TAB PO PRN (09:34)
--- NOTE | 2018-08-31 10:22 | PDOC.GSPN ---
Surgery Progress Note: Subj - Subjective Narrative: Nausea still improved but minimal PO Surgery Progress Note: Obj - Vital signs Vital signs: Vital Signs - Most Recent Temp Pulse Resp BP Pulse Ox 98.2 F 83 14 156/75 H 96 08/31/18 07:26 08/31/18 07:26 08/31/18 07:26 08/31/18 08:19 08/31/18 07:26 - Physical Exam General: no distress Abdomen: soft, non tender, positive bowel sounds Wound: ostomy/colostomy (viable mucosa) Surgery Progress Note: Results - Labs Result Diagrams: 08/29/18 12:17 08/31/18 06:47 Lab results: Laboratory Results - last 24 hr 08/31/18 08/31/18 08/31/18 00:01 06:47 06:50 Sodium 137 Potassium 3.7 Chloride 96 L Carbon Dioxide 32 H Anion Gap 13 BUN 14 Creatinine 0.73 Estimated GFR (MDRD) 83 Glucose 85 POC Glucose 136 H 99 Calcium 8.7 Surgery Progress Note: A/P - Problem (1) Abdominal abscess Current Visit: Yes Code(s): [id number] - Status: Acute - Plan Plan: Restart TF, continuous not bolus. -WBC down on Zyvox, zosyn -Increase TF to goal as tpn weaned
--- NOTE | 2018-08-31 12:30 | PRG ---
DATE OF SERVICE: 08/31/2018 SUBJECTIVE: The patient is seen and examined at bedside. She feels better. She does not have much nausea anymore or abdominal pain. OBJECTIVE: VITAL SIGNS: Blood pressure is 146/80, pulse is 81, respiratory rate is 14; temperature is 98.0, maximal temperature is 98.4 for the last 24 hours; and pulse oximetry is 96% on 2 L by nasal cannula. HEENT: Head is atraumatic and normocephalic. Eyes are PERRLA. Sclerae are nonicteric. Oral mucosa is moist. NECK: Supple. LUNGS: Clear. HEART: S1 and S2, normal. No S3. No S4. No any murmur. ABDOMEN: Soft and nontender. Bowel sounds are present. Ostomy bag is in place. EXTREMITIES: No clubbing, cyanosis, or edema. NEUROLOGIC: She is alert and oriented x4. There is no any motor or sensory deficit present. Cranial nerves are intact. LABORATORY DATA: Sodium of 137, potassium 3.7, chloride 96, CO2 of 32, BUN 14, and creatinine 0.73. The rest of chemistry within normal limits. IMPRESSION: 1. Abdominal abscess, status post ileostomy revision and drainage of the parastomal abscess growing Enterococcus faecium and Staphylococcus aureus, methicillin sensitive, on Zosyn and Zyvox. 2. Hypokalemia, still requiring on and off supplementation. 3. Anemia, status post transfusion of one unit of packed red blood cells. 4. Crohn disease. 5. History of adenocarcinoma status post removal. 6. Thrombocytosis. 7. Acute kidney injury, resolved. 8. Hyponatremia and hypomagnesemia, corrected. PLAN: The patient is started on tube feeding by General Surgery. She will continue on Zosyn and linezolid. She will have her TPN weaned gradually as tube feeding is introduced more and more. We will get CBC and keep checking her deficiencies in regular intervals. We want her to participate in PT. Job ID: [id number]
[2018-08-31] MEDS: SODIUM ACETATE IV SCH (14:51)
[2018-08-31] MEDS: POTASSIUM ACETATE IV SCH (14:51)
[2018-08-31] MEDS: [UNRECOGNIZED DRUG - OTHER] IV SCH (14:51)
--- NOTE | 2018-08-31 17:38 | PRG ---
DATE OF SERVICE: 08/31/2018 SUBJECTIVE: Ms. Kwan is awake. She is feeling better. She has no more nausea. She is being fed via gastrostomy again. No abdominal pain. OBJECTIVE: VITAL SIGNS: She has been afebrile and T-max 98.2. LUNGS: Clear. HEART: S1 and S2, regular rate. ABDOMEN: She has gastrostomy tube feedings going on, and she has the ileostomy with a drain in the middle. LABORATORY DATA: White cell count 13.4 which is down from previous, hemoglobin 8.8, platelets 1030. Microbiology noted before Enterococcus faecium, 2 anaerobes. She is currently on Zosyn and Zyvox and had been on TPN, but that has been discontinued, I believe. ASSESSMENT AND DISCUSSION: Crohn disease with adenocarcinoma of the ileal segment, status post ileocecectomy, dehiscence of anastomosis, subsequent ileostomy with development of right lower quadrant abscess which has recurred. She has had it drained through the ileostomy, and she will need protracted antimicrobial therapy. Unfortunately, we will have to use Zyvox which is frequently poorly tolerated and we will also continue Zosyn. Monitor the resolution of the abscesses, so it will be the end point in terms of the discontinuation of therapy and then the concern is that there might be some leak that might be leading to the reaccumulation of these areas, may be not. Job ID: [id number]
--- NOTE | 2018-08-31 20:13 | PRG ---
DATE OF SERVICE: 08/31/2018 SUBJECTIVE: Ms. Kwan feels better today. No nausea. She was started back on tube feeds. OBJECTIVE: VITAL SIGNS: Temperature is 98, pulse 83, blood pressure 127/67. LUNGS: Clear. ABDOMEN: Soft, nontender. There is no induration around her PEG site. LABORATORY DATA: No CBC from today. Chemistry showed normal electrolytes today. ASSESSMENT: 1. History of Crohn's. 2. History of small bowel malignancy resected. 3. Postop complications with wound dehiscence, anastomotic breakdown, peristomal abscess, status post drainage. 4. History of fungemia related to PICC line and earlier this year to admission resolved. RECOMMENDATIONS: This patient is to advance her diet and continue her antibiotics. If she continues to improve and shows decreased signs of inflammatory markers, I think we need to go ahead and start Humira back again. Again we an outpatient, but we will talk with Dr. Martinez this week about . Job ID: [id number]
[2018-09-01] MEDS: Diphenoxylate HCl/Atropine Tablet PO SCH ×4 (01:02→18:31)
[2018-09-01] MEDS: Piperacillin/Tazobactam 3.375 GM in Sodium Chloride 0.9% 100 ML IVPB SCH ×4 (02:48→20:57)
[2018-09-01] MEDS: Linezolid 600 MG in Premix Bag 1 BAG IVPB SCH ×2 (05:00→16:15)
[2018-09-01] MEDS: Dronabinol 2.5 MG CAP PO SCH ×2 (06:48→17:11)
[2018-09-01 07:06] LABS: #Basophils 0.1 thou/uL (0.0-0.2); #Eosinphils 1.2 thou/uL (0.0-0.7); #Lymphocytes 2.2 thou/uL (1.20-3.40); #Monocytes 1.3 thou/uL (0.11-0.59); #Neutrophils 7.7 thou/uL (1.40-6.50); %Eosinophils 9.3 % (0.0-10.0); %Lymphocytes 17.5 % (21.0-51.0); %Monocytes 10.2 % (0.0-10.0); Mean Corpuscular HGB CONC 32.1 g/dL (32.0-36.0); Mean Corpuscular Hemoglobin 30.4 pg (27.0-31.0); Mean Corpuscular Volume 94.9 fL (78.0-98.0); Mean Platelet Volume 6.1 fL (7.4-10.4); Platelet Count 877 thou/uL (130-400); RBC Distribution Width 16.3 % (11.5-14.5); Red Blood Cell (RBC) Count 2.64 mill/uL (4.20-5.40); White Blood Cell (WBC) Count 12.5 thou/uL (4.8-10.8)
[2018-09-01 07:26] LABS: Anion Gap 9 mmol/L (10-20); BUN (Urea Nitrogen) 18 mg/dL (9.8-20.1); Calc. Creatinine Clearance 60 mL/min (70-130); Calcium 8.8 mg/dL (7.8-10.44); Carbon Dioxide 36 mmol/L (22-29); Chloride 95 mmol/L (98-107); Estimated GFR-MDRD 75; Glucose 103 mg/dL (70-105); Potassium 4.4 mmol/L (3.5-5.1); Sodium 136 mmol/L (136-145)
[2018-09-01] MEDS: Saccharomyces boulardii 250 MG CAP PO SCH (09:05)
[2018-09-01] MEDS: Multivit, Therapeutic 1 TAB PO SCH (09:06)
[2018-09-01] MEDS: Aspirin Chewable 81 MG TAB PO SCH (09:06)
[2018-09-01] MEDS: Carvedilol 6.25 MG TAB PO SCH ×2 (09:06→21:00)
[2018-09-01] MEDS: Escitalopram Oxalate 20 mg Tablet PO SCH (09:06)
[2018-09-01] MEDS: Folic Acid 1 MG TAB PO SCH (09:06)
[2018-09-01] MEDS: Sodium Chloride 1 GM TAB PO SCH ×2 (09:07→21:00)
[2018-09-01] MEDS: Potassium Citrate 10 MEQ TAB PO SCH ×2 (09:07→21:01)
--- NOTE | 2018-09-01 13:31 | PDOC.GSPN ---
Surgery Progress Note: Subj - Subjective Patient reports: no new complaints (Juan TF at 20ml/hr) Surgery Progress Note: Obj - Vital signs Vital signs: Vital Signs - Most Recent Temp Pulse Resp BP Pulse Ox 98.1 F 86 14 122/77 95 09/01/18 08:00 09/01/18 08:00 09/01/18 08:00 09/01/18 09:06 09/01/18 08:00 - Physical Exam General: no distress Cardiovascular: regular rate and rhythm Respiratory: clear to auscultation Wound: healing well Surgery Progress Note: Results - Labs Result Diagrams: 09/01/18 06:54 09/01/18 06:54 Lab results: Laboratory Results - last 24 hr 09/01/18 09/01/18 09/01/18 05:10 06:54 06:54 WBC 12.5 H RBC 2.64 L Hgb 8.0 L Hct 25.1 L MCV 94.9 MCH 30.4 MCHC 32.1 RDW 16.3 H Plt Count 877 H MPV 6.1 L Neutrophils % 62.0 Lymphocytes % 17.5 L Monocytes % 10.2 H Eosinophils % 9.3 Basophils % 1.0 Neutrophils # 7.7 H Lymphocytes # 2.2 Monocytes # 1.3 H Eosinophils # 1.2 H Basophils # 0.1 Sodium 136 Potassium 4.4 Chloride 95 L Carbon Dioxide 36 H Anion Gap 9 L BUN 18 Creatinine 0.80 Estimated GFR (MDRD) 75 Glucose 103 POC Glucose 136 H Calcium 8.8 09/01/18 11:45 WBC RBC Hgb Hct MCV MCH MCHC RDW Plt Count MPV Neutrophils % Lymphocytes % Monocytes % Eosinophils % Basophils % Neutrophils # Lymphocytes # Monocytes # Eosinophils # Basophils # Sodium Potassium Chloride Carbon Dioxide Anion Gap BUN Creatinine Estimated GFR (MDRD) Glucose POC Glucose 121 H Calcium Surgery Progress Note: A/P - Problem (1) Abdominal abscess Current Visit: Yes Code(s): [id number] - Status: Acute - Plan Plan: slow progress -wean tpn -increase TF -? if oral zyvox enough coverage after DC. Will discuss with Dr. Martinez
--- NOTE | 2018-09-01 16:01 | PDOC.PN ---
- Subjective Encounter Start Date: 09/01/18 Encounter Start Time: 15:59 Subjective: feels much better. walking in hallways. able to eat by mouth -: tolerating TF so far @ 20ml/hr w TPN -: no abd pain/N/V.care discussed w at bedside - Objective Resuscitation Status - Order Detail: 08/20/18 01:08 Resuscitation Status Routine Resuscitation Status: PRTL: Cardiac only Discussed with: Patient Additional comments: DNI. Everything but intubation. MAR Reviewed: Yes Vital Signs & Weight: Vital Signs (12 hours) Temp Pulse Resp BP BP Pulse Ox 09/01/18 11:38 97.5 F L 88 14 112/66 96 09/01/18 09:06 122/77 09/01/18 08:00 98.1 F 86 14 122/77 95 09/01/18 07:43 96 09/01/18 04:00 98.3 F 86 16 109/65 94 L Weight Admit Weight 89 lb 12.8 oz Weight 103 lb 7 oz I&O: 08/31/18 09/01/18 09/02/18 06:59 06:59 06:59 Intake Total 1530 4962 Output Total 1675 835 Balance -145 4127 Result Diagrams: 09/01/18 06:54 09/01/18 06:54 Additional Labs: Accuchecks 09/01/18 09/01/18 09/01/18 15:21 11:45 05:10 POC Glucose 118 H 121 H 136 H 08/31/18 08/31/18 23:38 18:08 POC Glucose 123 H 133 H Microbiology 08/27/18 04:21 Urine voided Urine Culture - Final 08/25/18 11:37 Abdomen - Abscess Bacterial Culture - Final 08/25/18 11:37 Abdomen - Abscess Anaerobic Culture - Final Enterococcus faecium Anaerobic Gram Negative Tae Anaerobic Gram Positive Tae 08/19/18 22:30 Abdomen - Pending Bacterial Culture - Final Staphylococcus aureus 08/19/18 19:29 Venous blood - Right Hand Blood Culture - Final NO GROWTH IN 5 DAYS 08/19/18 19:28 Venous blood - Left Hand Blood Culture - Final NO GROWTH IN 5 DAYS Laboratory Tests 08/19/18 08/20/18 08/22/18 19:09 05:56 05:33 WBC 27.0 H 24.8 H Plt Count 1602 H* 932 H* 08/23/18 08/26/18 08/27/18 04:58 06:07 03:58 WBC 16.1 H 24.1 H 23.6 H Plt Count 979 H* 918 H* 08/28/18 08/29/18 09/01/18 06:28 12:17 06:54 WBC 19.2 H 13.4 H 12.5 H Plt Count 926 H* 1030 H* 877 H Phys Exam - Physical Examination Constitutional: NAD HEENT: PERRLA, moist MMs, sclera anicteric, oral pharynx no lesions Neck: no JVD Respiratory: no wheezing, no rales, no rhonchi Cardiovascular: RRR, no significant murmur Gastrointestinal: soft, non-tender, no distention, positive bowel sounds Ileostomy w drain in the ostomy ,nl stools in bag Musculoskeletal: no edema, pulses present Neurological: non-focal, normal sensation, moves all 4 limbs Psychiatric: normal affect, A&O x 3 Skin: no rash Dx/Plan (1) Abdominal abscess Code(s): [id number] - Status: Acute Comment: S/p ileostomy revision and drainage of parastomal abscess on 08/26/18 (2) Sepsis Code(s): A41.9 - SEPSIS, UNSPECIFIED ORGANISM Status: Acute (3) Failure to thrive Code(s): WKG3920 - Status: Acute Qualifiers: Failure to thrive age range: in adult Qualified Code(s): R62.7 - Adult failure to thrive (4) S/P ileostomy Code(s): Z93.2 - ILEOSTOMY STATUS Status: Acute Comment: As per surgery/ PCP. (5) Crohn's disease Code(s): K50.90 - CROHN'S DISEASE, UNSPECIFIED, WITHOUT COMPLICATIONS Status: Chronic Qualifiers: Gastrointestinal tract location: small and large intestine Comment: h/o ileocecectomy for stricture and adenocarcinoma- completely removed with clear margins (6) GERD (gastroesophageal reflux disease) Code(s): K21.9 - GASTRO-ESOPHAGEAL REFLUX DISEASE WITHOUT ESOPHAGITIS Status: Chronic Qualifiers: Comment: stable (7) Thrombocytosis Status: Chronic Comment: improved (8) Nausea & vomiting Code(s): R11.2 - NAUSEA WITH VOMITING, UNSPECIFIED Status: Resolved Qualifiers: Vomiting type: unspecified Vomiting Intractability: intractable Qualified Code(s): R11.2 - Nausea with vomiting, unspecified - Plan plan discussed w/ family, continue antibiotics, PT/OT, out of bed/ambulate, DVT proph w/SCDs Clinically better.leucocytosis & thrombocytosis better.cont ABx -: Increase TF gradually to reduce and stop TPN -: HD stable. on Zyvox and zosyn.Cx results noted * . Review of Systems - Review of Systems Constitutional: weakness, malaise Cardiovascular: negative: chest pain, palpitations, orthopnea, paroxysmal nocturnal dyspnea, edema, light headedness, other Gastrointestinal: negative: Nausea, Vomiting, Abdominal Pain, Diarrhea, Constipation, Melena, Hematochezia, Other Genitourinary: negative: Dysuria, Frequency, Incontinence, Hematuria, Retention , Other Musculoskeletal: negative: Neck Pain, Shoulder Pain, Arm Pain, Back Pain, Hand Pain, Leg Pain, Foot Pain, Other Skin: negative: Rash, Lesions, Leonid, Bruising, Other Neurological: negative: Weakness, Numbness, Incoordination, Change in Speech, Confusion, Seizures, Other - Medications/Allergies Allergies/Adverse Reactions: Allergies Allergy/AdvReac Type Severity Reaction Status Date / Time morphine Allergy Delirium Verified 08/29/18 21:19 ciprofloxacin [From Cipro] AdvReac Verified 08/19/18 23:03 hydrocodone AdvReac Verified 08/19/18 23:03 Medications: Current Medications Albuterol/Ipratropium (Duoneb) 3 ml NEB Q6H PRN PRN Reason: SOB &/or Wheezing Lipase/Protease/Amylase (Demetrius Agosto 21317) 1 cap FS .PER PROTOCOL PRN PRN Reason: TUBE OCCLUSION PROTOCOL Aspirin (Aspirin Chewable) 81 mg PO DAILY [facility] Last Admin: 09/01/18 09:06 Dose: 81 mg Carvedilol (Coreg) 6.25 mg PO BID [facility] Last Admin: 09/01/18 09:06 Dose: 6.25 mg Diphenoxylate HCl/Atropine (Lomotil) 2 tab PO Q6HR [facility] Last Admin: 09/01/18 12:55 Dose: 2 tab Dronabinol (Marinol) 5 mg PO BID-AC [facility] Last Admin: 09/01/18 06:48 Dose: 5 mg Escitalopram Oxalate (Lexapro) 20 mg PO DAILY [facility] Last Admin: 09/01/18 09:06 Dose: 20 mg Fentanyl (Sublimaze) 25 mcg SLOW IVP Q2H PRN PRN Reason: Mild Pain (1-3) Last Admin: 08/25/18 13:09 Dose: 25 mcg Folic Acid (Folvite) 1 mg PO DAILY [facility] Last Admin: 09/01/18 09:06 Dose: 1 mg Piperacillin Sod/Tazobactam (Sod 3.375 gm/ Sodium Chloride) 100 mls @ 200 mls/ hr IVPB 0200,0800,1400,2000 [facility] Last Admin: 09/01/18 15:48 Dose: 100 mls Linezolid 600 mg/ Device 300 mls @ 150 mls/hr IVPB 0400,1600 [facility] Last Admin: 09/01/18 05:00 Dose: 300 mls Multivitamins (Theragran) 1 tab PO DAILY [facility] Last Admin: 09/01/18 09:06 Dose: 1 tab Ondansetron HCl (Zofran) 4 mg IVP Q6H PRN PRN Reason: Nausea/Vomiting Last Admin: 08/30/18 08:55 Dose: 4 mg Ondansetron HCl (Zofran Odt) 8 mg PO Q6H PRN PRN Reason: Nausea/Vomiting Pantoprazole Sodium (Protonix) 40 mg PO DAILY [facility] Last Admin: 09/01/18 09:06 Dose: 40 mg Potassium Citrate (Urocit K) 10 meq PO BID [facility] Last Admin: 09/01/18 09:07 Dose: 10 meq Promethazine HCl (Phenergan) 12.5 mg IM Q4H PRN PRN Reason: Nausea Last Admin: 08/29/18 20:16 Dose: 12.5 mg Saccharomyces Boulardii (Florastor) 250 mg PO DAILY [facility] Last Admin: 09/01/18 09:05 Dose: 250 mg Sodium Bicarbonate (Bicarbonate, Sodium) 650 mg PER TUBE .PER PROTOCOL PRN PRN Reason: ENTERAL TUBE OCCLUSION Sodium Chloride (Sodium Chloride) 1 gm PO BID [facility] Last Admin: 09/01/18 09:07 Dose: 1 gm Sodium Chloride (Flush - Normal Saline) 10 ml IVF PRN PRN PRN Reason: Saline Flush Last Admin: 08/28/18 14:51 Dose: 10 ml Tramadol HCl (Ultram) 100 mg PO Q6H PRN PRN Reason: Pain Last Admin: 08/29/18 21:25 Dose: 100 mg Trazodone HCl (Desyrel) 50 mg PO HSPRN PRN PRN Reason: Insomnia
--- NOTE | 2018-09-01 16:30 | PRG ---
DATE OF SERVICE: 09/01/2018 SUBJECTIVE: Ms. Kwan is looking very good. This is about the best week she has had it seems in a while. OBJECTIVE: VITAL SIGNS: Temperature is 98, pulse 88, and blood pressure 112/66. GI: She is tolerating tube feeds, it has been advanced and TPN is being weaned. She denies abdominal pain. On exam, she has soft abdomen. It is nontender. Ileostomy site looks good. LABORATORY DATA: White count is 12.5, platelet count is 877, and hemoglobin is 8. On 09/01, her basic metabolic profile is normal. ASSESSMENT AND PLAN: 1. Crohn's, in remission. 2. Peristomal abscess drained. 3. Status post resection of ileal malignancy. Multiple complications regarding her Crohn's, chronic smoking, and steroid use for emphysema. Overall, she has finally starting to look like she has turning the corner. We will continue to wean her TPN, advance her tube feeds. Once it is clear water, full duration of antibiotics is going to be, we will decide when to start her back. Job ID: [id number]
[2018-09-01] MEDS ORDERED: Piperacillin/Tazobactam 3.375 GM VIAL ONE (19:59)
[2018-09-02] MEDS: Diphenoxylate HCl/Atropine Tablet PO SCH ×4 (00:13→19:34)
[2018-09-02] MEDS: Piperacillin/Tazobactam 3.375 GM in Sodium Chloride 0.9% 100 ML IVPB SCH ×4 (02:59→20:40)
[2018-09-02] MEDS: Linezolid 600 MG in Premix Bag 1 BAG IVPB SCH ×2 (04:59→17:54)
[2018-09-02] MEDS: Dronabinol 2.5 MG CAP PO SCH ×2 (06:31→17:54)
[2018-09-02] MEDS: Saccharomyces boulardii 250 MG CAP PO SCH (10:29)
[2018-09-02] MEDS: Potassium Citrate 10 MEQ TAB PO SCH ×2 (10:29→20:43)
[2018-09-02] MEDS: Carvedilol 6.25 MG TAB PO SCH ×2 (10:30→20:37)
[2018-09-02] MEDS: Aspirin Chewable 81 MG TAB PO SCH (10:30)
[2018-09-02] MEDS: Escitalopram Oxalate 20 mg Tablet PO SCH (10:30)
[2018-09-02] MEDS: Sodium Chloride 1 GM TAB PO SCH ×2 (10:30→20:43)
[2018-09-02] MEDS: Folic Acid 1 MG TAB PO SCH (10:30)
[2018-09-02] MEDS: Multivit, Therapeutic 1 TAB PO SCH (10:31)
--- NOTE | 2018-09-02 12:29 | PRG ---
DATE OF SERVICE: 09/02/2018 SUBJECTIVE: Ms. Kwan is tolerating the tube feeds at 30 mL an hour. Discussed with Dr. Martinez yesterday. He does recommend Zosyn and Zyvox IV as an outpatient for this Enterococcus in her abscess. OBJECTIVE: VITAL SIGNS: She is afebrile. Vital signs are stable. ABDOMEN: Ileostomy output only 350 was recorded for the day. ASSESSMENT: 1. 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 2. High-output ileostomy, although, output is down on Lomotil and with tube feeds going. 3. Chronic deconditioning and anorexia, necessitating tube feeds. We will advance to goal today. 4. Enterococcus in her peristomal abscess. PLAN: Outpatient IV antibiotics when she is discharged next week. Job ID: [id number]
--- NOTE | 2018-09-02 15:19 | PDOC.PN ---
- Subjective Encounter Start Date: 09/02/18 Encounter Start Time: 15:17 Subjective: No new problem. -: tolerating tube feeding. -: No abdominal pain or vomiting. - Objective Resuscitation Status - Order Detail: 08/20/18 01:08 Resuscitation Status Routine Resuscitation Status: PRTL: Cardiac only Discussed with: Patient Additional comments: DNI. Everything but intubation. Vital Signs & Weight: Vital Signs (12 hours) Temp Pulse Resp BP BP Pulse Ox 09/02/18 11:20 97.4 F L 82 18 134/78 99 09/02/18 10:30 132/78 09/02/18 08:20 98.3 F 82 14 132/78 94 L 09/02/18 04:00 98.4 F 84 20 117/72 97 Weight Admit Weight 89 lb 12.8 oz Weight 103 lb 7 oz I&O: 09/01/18 09/02/18 09/03/18 06:59 06:59 06:59 Intake Total 4962 3880 Output Total 835 775 Balance 4127 3105 Result Diagrams: 09/01/18 06:54 09/01/18 06:54 Additional Labs: Accuchecks 09/02/18 09/02/18 09/02/18 11:40 06:35 00:22 POC Glucose 115 H 120 H 111 H 09/01/18 15:21 POC Glucose 118 H Phys Exam - Physical Examination Constitutional: NAD HEENT: PERRLA, moist MMs Neck: no JVD Respiratory: no wheezing, no rhonchi fair air entry with few bibasal crackles Cardiovascular: RRR Gastrointestinal: soft, no distention Ostomy and PEG tube noted Musculoskeletal: no edema, pulses present Neurological: non-focal, moves all 4 limbs Psychiatric: A&O x 3 Dx/Plan (1) Abdominal abscess Code(s): [id number] - Status: Acute Comment: S/p ileostomy revision and drainage of parastomal abscess on 08/26/18 (2) Sepsis Code(s): A41.9 - SEPSIS, UNSPECIFIED ORGANISM Status: Acute (3) Abnormal liver enzymes Code(s): R74.8 - ABNORMAL LEVELS OF OTHER SERUM ENZYMES Status: Acute Comment: Improving (4) Hypokalemia Code(s): E87.6 - HYPOKALEMIA Status: Acute (5) Neutrophilic leukocytosis Code(s): D72.9 - DISORDER OF WHITE BLOOD CELLS, UNSPECIFIED Status: Acute Comment: Improving slowly, continue Zosyn, Wound vac and local wound care, serial CBC (6) S/P ileostomy Code(s): Z93.2 - ILEOSTOMY STATUS Status: Acute Comment: As per surgery/ PCP. (7) Crohn's disease Code(s): K50.90 - CROHN'S DISEASE, UNSPECIFIED, WITHOUT COMPLICATIONS Status: Chronic Qualifiers: Gastrointestinal tract location: small and large intestine Comment: h/o ileocecectomy for stricture and adenocarcinoma- completely removed with clear margins (8) Thrombocytosis Status: Chronic Comment: improved (9) RUT (acute kidney injury) Code(s): N17.9 - ACUTE KIDNEY FAILURE, UNSPECIFIED Status: Resolved Comment : Resolved. (10) Hyponatremia Code(s): E87.1 - HYPO-OSMOLALITY AND HYPONATREMIA Status: Resolved Comment: appropriate ADH vs inapropriate ADH scretion (11) Hypomagnesemia Code(s): E83.42 - HYPOMAGNESEMIA Status: Acute (12) Nausea & vomiting Code(s): R11.2 - NAUSEA WITH VOMITING, UNSPECIFIED Status: Resolved Qualifiers: Vomiting type: unspecified Vomiting Intractability: intractable Qualified Code(s): R11.2 - Nausea with vomiting, unspecified - Plan Continue tube feeding. advance to goal. -: Continue other treatments. -: Get BMP and magnesium in the am. * .
--- NOTE | 2018-09-02 18:49 | PRG ---
DATE OF SERVICE: 09/02/2018 SUBJECTIVE: Ms. Kwan is doing well, tolerating tube feeds 30 mL an hour. The plans to be made for Zosyn, Zyvox IV as an outpatient due to Enterococcus in her peristomal abscess. She denies nausea, vomiting, fever, or abdominal pain. OBJECTIVE: VITAL SIGNS: Temperature is 97.4, pulse 82, and blood pressure 134/78. LUNGS: Clear. HEART: Regular rate and rhythm without clicks or murmurs. ABDOMEN: Soft and nontender. There is no rebound. There is no guarding. Ostomy in the right lower quadrant. LABORATORY DATA: No blood work today. ASSESSMENT: 1. Peristomal abscess, draining. 2. Previous right colectomy for terminal ileal stricture malignancy, node-negative. 3. Ostomy output is better controlled. tube feeds. TPN has been weaned. PLAN: Hopefully, we will wean off TPN and ready for discharge next week. Job ID: [id number]
[2018-09-03] MEDS: Diphenoxylate HCl/Atropine Tablet PO SCH ×5 (00:47→23:21)
[2018-09-03] MEDS: Piperacillin/Tazobactam 3.375 GM in Sodium Chloride 0.9% 100 ML IVPB SCH ×4 (01:38→20:04)
[2018-09-03] MEDS: Linezolid 600 MG in Premix Bag 1 BAG IVPB SCH ×2 (03:21→16:47)
[2018-09-03 05:54] LABS: #Basophils 0.1 thou/uL (0.0-0.2); #Eosinphils 1.2 thou/uL (0.0-0.7); #Lymphocytes 2.7 thou/uL (1.20-3.40); %Basophils 0.8 % (0.0-1.0); %Eosinophils 8.8 % (0.0-10.0); %Lymphocytes 19.6 % (21.0-51.0); %Monocytes 6.8 % (0.0-10.0); %Neutrophils 64.1 % (42.0-75.0); Mean Corpuscular Hemoglobin 30.5 pg (27.0-31.0); Mean Corpuscular Volume 95.4 fL (78.0-98.0); Mean Platelet Volume 6.2 fL (7.4-10.4); Platelet Count 902 thou/uL (130-400); RBC Distribution Width 16.2 % (11.5-14.5); Red Blood Cell (RBC) Count 2.62 mill/uL (4.20-5.40)
[2018-09-03 06:02] LABS: Anion Gap 12 mmol/L (10-20); BUN (Urea Nitrogen) 15 mg/dL (9.8-20.1); Calc. Creatinine Clearance 49 mL/min (70-130); Calcium 9.3 mg/dL (7.8-10.44); Carbon Dioxide 30 mmol/L (22-29); Chloride 97 mmol/L (98-107); Estimated GFR-MDRD 60; Glucose 107 mg/dL (70-105); Magnesium 1.1 mg/dL (1.6-2.6); Potassium 4.9 mmol/L (3.5-5.1); Sodium 134 mmol/L (136-145)
[2018-09-03] MEDS: Dronabinol 2.5 MG CAP PO SCH ×2 (07:11→16:58)
[2018-09-03] MEDS: Carvedilol 6.25 MG TAB PO SCH ×2 (08:58→20:17)
[2018-09-03] MEDS: Escitalopram Oxalate 20 mg Tablet PO SCH (08:59)
[2018-09-03] MEDS: Aspirin Chewable 81 MG TAB PO SCH (08:59)
[2018-09-03] MEDS: Multivit, Therapeutic 1 TAB PO SCH (08:59)
[2018-09-03] MEDS: Saccharomyces boulardii 250 MG CAP PO SCH (08:59)
[2018-09-03] MEDS: Folic Acid 1 MG TAB PO SCH (08:59)
[2018-09-03] MEDS: Potassium Citrate 10 MEQ TAB PO SCH ×2 (10:24→20:17)
[2018-09-03] MEDS: Sodium Chloride 1 GM TAB PO SCH ×2 (10:26→20:17)
[2018-09-03] MEDS ORDERED: Magnesium Sulfate 4 GM in Sodium Chloride 0.9% 250 ML 250 ML IVPB SCH (13:30)
--- NOTE | 2018-09-03 13:35 | PDOC.PN ---
- Subjective Encounter Start Date: 09/03/18 Encounter Start Time: 13:34 Subjective: No new problem. tolerating tube feeding. -: No fever or abdominal pain. - Objective Resuscitation Status - Order Detail: 08/20/18 01:08 Resuscitation Status Routine Resuscitation Status: PRTL: Cardiac only Discussed with: Patient Additional comments: DNI. Everything but intubation. Vital Signs & Weight: Vital Signs (12 hours) Temp Pulse Resp BP BP Pulse Ox 09/03/18 12:00 97.8 F 83 15 129/79 93 L 09/03/18 08:56 98.0 F 84 14 150/84 H 96 09/03/18 04:00 98.2 F 90 16 133/80 96 Weight Admit Weight 89 lb 12.8 oz Weight 103 lb 7 oz I&O: 09/02/18 09/03/18 09/04/18 06:59 06:59 06:59 Intake Total 3880 2390 Output Total 775 800 Balance 3105 1590 Result Diagrams: 09/03/18 05:30 09/03/18 05:30 Additional Labs: Accuchecks 09/03/18 09/03/18 09/02/18 12:03 05:47 23:50 POC Glucose 116 H 129 H 104 09/02/18 18:21 POC Glucose 128 H Phys Exam - Physical Examination Constitutional: NAD HEENT: PERRLA, moist MMs Neck: no JVD, supple Respiratory: no wheezing, no rhonchi fair air entry bilaterally Cardiovascular: RRR Gastrointestinal: soft, positive bowel sounds Ileostomy and PEG tube noted Musculoskeletal: no edema Neurological: non-focal, moves all 4 limbs Psychiatric: A&O x 3 Dx/Plan (1) Abdominal abscess Code(s): [id number] - Status: Acute Comment: S/p ileostomy revision and drainage of parastomal abscess on 08/26/18 (2) Sepsis Code(s): A41.9 - SEPSIS, UNSPECIFIED ORGANISM Status: Acute (3) Abnormal liver enzymes Code(s): R74.8 - ABNORMAL LEVELS OF OTHER SERUM ENZYMES Status: Acute Comment: Improving (4) Hypokalemia Code(s): E87.6 - HYPOKALEMIA Status: Acute (5) Neutrophilic leukocytosis Code(s): D72.9 - DISORDER OF WHITE BLOOD CELLS, UNSPECIFIED Status: Acute Comment: Improving slowly, continue Zosyn, Wound vac and local wound care, serial CBC (6) S/P ileostomy Code(s): Z93.2 - ILEOSTOMY STATUS Status: Acute Comment: As per surgery/ PCP. (7) Crohn's disease Code(s): K50.90 - CROHN'S DISEASE, UNSPECIFIED, WITHOUT COMPLICATIONS Status: Chronic Qualifiers: Gastrointestinal tract location: small and large intestine Comment: h/o ileocecectomy for stricture and adenocarcinoma- completely removed with clear margins (8) Thrombocytosis Status: Chronic Comment: improved (9) URT (acute kidney injury) Code(s): N17.9 - ACUTE KIDNEY FAILURE, UNSPECIFIED Status: Resolved Comment : Resolved. (10) Hyponatremia Code(s): E87.1 - HYPO-OSMOLALITY AND HYPONATREMIA Status: Resolved Comment: appropriate ADH vs inapropriate ADH scretion (11) Hypomagnesemia Code(s): E83.42 - HYPOMAGNESEMIA Status: Acute Comment: Recurrent (12) Nausea & vomiting Code(s): R11.2 - NAUSEA WITH VOMITING, UNSPECIFIED Status: Resolved Qualifiers: Vomiting type: unspecified Vomiting Intractability: intractable Qualified Code(s): R11.2 - Nausea with vomiting, unspecified - Plan Continue current treatments -: Replete serum magnesium with magnesium sulphate. -: Start oral supplementation with magnesium oxide -: Continue antibiotics as per ID * .
--- NOTE | 2018-09-03 18:11 | PRG ---
DATE OF SERVICE: 09/03/2018 SUBJECTIVE: Brigida Kawn is doing well today. She is seen by Dr. Hickey in coverage on Wednesday. She has history of Crohn's, right colon resection, T3 N0 tumor with ileostomy leak, now has a PEG tube, on goal rate tube of feedings. A Superior around her ileostomy for peristomal abscess. The patient is doing well. She is not having any nausea or vomiting. She denies any new pain or problems. OBJECTIVE: VITAL SIGNS: Temperature 97.8 degrees, 82, 138/83. LUNGS: Clear to auscultation. CARDIAC: Regular rate and rhythm without murmur or gallop. ABDOMEN: Soft, nontender. LABORATORY DATA: White count 14, hemoglobin 8. Basic metabolic profile is unremarkable this morning at baseline. ASSESSMENT AND PLAN: Overall, the patient is doing well. Would continue current therapy. She is tolerating her diet, not consuming much. Job ID: [id number]
[2018-09-03] MEDS: Magnesium Oxide 400 MG TAB PO SCH (20:17)
[2018-09-03] MEDS: Ondansetron PF 4 MG/2 ML Vial IVP PRN (20:21)
[2018-09-04] MEDS: Piperacillin/Tazobactam 3.375 GM in Sodium Chloride 0.9% 100 ML IVPB SCH ×4 (02:47→20:27)
[2018-09-04] MEDS: Linezolid 600 MG in Premix Bag 1 BAG IVPB SCH ×2 (04:52→15:37)
[2018-09-04 05:29] LABS: Anion Gap 12 mmol/L (10-20); BUN (Urea Nitrogen) 14 mg/dL (9.8-20.1); Calc. Creatinine Clearance 44 mL/min (70-130); Calcium 9.4 mg/dL (7.8-10.44); Carbon Dioxide 30 mmol/L (22-29); Chloride 99 mmol/L (98-107); Estimated GFR-MDRD 55; Glucose 109 mg/dL (70-105); Magnesium 2.3 mg/dL (1.6-2.6); Potassium 4.6 mmol/L (3.5-5.1); Sodium 136 mmol/L (136-145)
[2018-09-04] MEDS: Diphenoxylate HCl/Atropine Tablet PO SCH ×3 (06:02→18:32)
[2018-09-04] MEDS: Dronabinol 2.5 MG CAP PO SCH ×2 (06:26→19:04)
[2018-09-04] MEDS: Sodium Chloride 1 GM TAB PO SCH ×2 (10:09→20:28)
[2018-09-04] MEDS: Saccharomyces boulardii 250 MG CAP PO SCH (10:09)
[2018-09-04] MEDS: Folic Acid 1 MG TAB PO SCH (10:09)
[2018-09-04] MEDS: Magnesium Oxide 400 MG TAB PO SCH ×2 (10:09→20:28)
[2018-09-04] MEDS: Aspirin Chewable 81 MG TAB PO SCH (10:10)
[2018-09-04] MEDS: Multivit, Therapeutic 1 TAB PO SCH (10:10)
[2018-09-04] MEDS: Escitalopram Oxalate 20 mg Tablet PO SCH (10:10)
[2018-09-04] MEDS: Carvedilol 6.25 MG TAB PO SCH ×2 (10:10→20:29)
--- NOTE | 2018-09-04 13:05 | PDOC.PN ---
- Subjective Encounter Start Date: 09/04/18 Encounter Start Time: 13:04 Subjective: Feeling better. No new problem. -: Had an episode of emesis last night. None subsequently. -: Otherwise tolerating tube feeding well. - Objective Resuscitation Status - Order Detail: 08/20/18 01:08 Resuscitation Status Routine Resuscitation Status: PRTL: Cardiac only Discussed with: Patient Additional comments: DNI. Everything but intubation. Vital Signs & Weight: Vital Signs (12 hours) Temp Pulse Resp BP BP Pulse Ox 09/04/18 10:59 97.7 F 90 16 121/72 96 09/04/18 10:10 152/77 H 09/04/18 07:40 98.1 F 84 16 132/80 95 09/04/18 04:49 98 F 82 16 128/79 96 Weight Admit Weight 89 lb 12.8 oz Weight 99 lb I&O: 09/03/18 09/04/18 09/05/18 06:59 06:59 06:59 Intake Total 2390 3240 Output Total 800 850 Balance 1590 2390 Result Diagrams: 09/03/18 05:30 09/04/18 04:57 Additional Labs: Accuchecks 09/04/18 09/04/18 09/03/18 11:03 05:08 23:23 POC Glucose 122 H 124 H 91 09/03/18 17:59 POC Glucose 132 H Phys Exam - Physical Examination Constitutional: NAD HEENT: PERRLA, moist MMs Neck: no JVD, supple Respiratory: no wheezing, no rhonchi fair air entry bilaterally Cardiovascular: RRR Gastrointestinal: soft, no distention, positive bowel sounds ileostomy and PEG tube noted Musculoskeletal: no edema, pulses present Neurological: non-focal, moves all 4 limbs Psychiatric: A&O x 3 Dx/Plan (1) Abdominal abscess Code(s): [id number] - Status: Acute Comment: S/p ileostomy revision and drainage of parastomal abscess on 08/26/18 (2) Sepsis Code(s): A41.9 - SEPSIS, UNSPECIFIED ORGANISM Status: Acute (3) Abnormal liver enzymes Code(s): R74.8 - ABNORMAL LEVELS OF OTHER SERUM ENZYMES Status: Acute Comment: Improved (4) Hypokalemia Code(s): E87.6 - HYPOKALEMIA Status: Acute Comment: On supplementation (5) Neutrophilic leukocytosis Code(s): D72.9 - DISORDER OF WHITE BLOOD CELLS, UNSPECIFIED Status: Acute Comment: Improved. continue Zosyn, Wound care, serial CBC (6) S/P ileostomy Code(s): Z93.2 - ILEOSTOMY STATUS Status: Acute Comment: As per surgery/ PCP. (7) Crohn's disease Code(s): K50.90 - CROHN'S DISEASE, UNSPECIFIED, WITHOUT COMPLICATIONS Status: Chronic Qualifiers: Gastrointestinal tract location: small and large intestine Comment: h/o ileocecectomy for stricture and adenocarcinoma- completely removed with clear margins (8) Thrombocytosis Status: Chronic Comment: improved (9) RUT (acute kidney injury) Code(s): N17.9 - ACUTE KIDNEY FAILURE, UNSPECIFIED Status: Resolved Comment : Resolved. (10) Hyponatremia Code(s): E87.1 - HYPO-OSMOLALITY AND HYPONATREMIA Status: Resolved Comment: Most likely due appropriate ADH due to volume depletion and vomiting. Resolved. (11) Hypomagnesemia Code(s): E83.42 - HYPOMAGNESEMIA Status: Acute Comment: Recurrent. Now on supplementation (12) Nausea & vomiting Code(s): R11.2 - NAUSEA WITH VOMITING, UNSPECIFIED Status: Resolved Qualifiers: Vomiting type: unspecified Vomiting Intractability: intractable Qualified Code(s): R11.2 - Nausea with vomiting, unspecified (13) Failure to thrive Code(s): [id number] - Status: Acute Qualifiers: Failure to thrive age range: in adult Qualified Code(s): R62.7 - Adult failure to thrive - Plan Continue tube feeding. -: Monitor electrolyters and correct as needed * .
--- NOTE | 2018-09-04 13:42 | PRG ---
DATE OF SERVICE: 09/04/2018 SUBJECTIVE: Brigida Paulino is doing well today. She is tolerating her tube feedings, taking oral diet in addition. Her ileostomy is working well. She has no new complaints. She has been ambulating. OBJECTIVE: VITAL SIGNS: Temperature 97.7, pulse rate 90, blood pressure 121/72. LUNGS: Clear to auscultation. CARDIAC: Regular rate and rhythm without murmur or gallop. ABDOMEN: Soft, nontender. Kevin drain around ileostomy, healthy. Ileostomy bag productive. LABORATORY DATA: No laboratories today, except for basic metabolic profile, which is normal. Her renal function is normal. Glucose 109. ASSESSMENT/PLAN: 1. Doing well. Peristomal abscess. Kevin drain. Continue per Dr. Hickey's treatment plan. 2. Malnutrition. Continue tube feeding, supplement oral intake. Discharge planning per Dr. Hickey. Job ID: [id number]
[2018-09-04] MEDS: Potassium Citrate 10 MEQ TAB PO SCH ×2 (15:28→20:28)
[2018-09-05] MEDS: Diphenoxylate HCl/Atropine Tablet PO SCH ×5 (00:44→23:38)
[2018-09-05] MEDS: Piperacillin/Tazobactam 3.375 GM in Sodium Chloride 0.9% 100 ML IVPB SCH ×4 (01:20→20:37)
[2018-09-05] MEDS: Linezolid 600 MG in Premix Bag 1 BAG IVPB SCH ×2 (03:58→16:52)
[2018-09-05] MEDS: Dronabinol 2.5 MG CAP PO SCH ×2 (06:39→18:07)
[2018-09-05] MEDS: Saccharomyces boulardii 250 MG CAP PO SCH (08:36)
[2018-09-05] MEDS: Folic Acid 1 MG TAB PO SCH (08:36)
[2018-09-05] MEDS: Carvedilol 6.25 MG TAB PO SCH ×2 (08:36→20:38)
[2018-09-05] MEDS: Escitalopram Oxalate 20 mg Tablet PO SCH (08:36)
[2018-09-05] MEDS: Magnesium Oxide 400 MG TAB PO SCH ×2 (08:36→20:38)
[2018-09-05] MEDS: Multivit, Therapeutic 1 TAB PO SCH (08:37)
[2018-09-05] MEDS: Potassium Citrate 10 MEQ TAB PO SCH ×2 (08:37→20:38)
[2018-09-05] MEDS: Aspirin Chewable 81 MG TAB PO SCH (08:37)
[2018-09-05] MEDS: Sodium Chloride 1 GM TAB PO SCH ×2 (08:37→20:39)
[2018-09-05] MEDS ORDERED: Activase 2 MG VIAL CATH SCH (11:01)
[2018-09-05] MEDS ORDERED: Sterile Water 10 ML VIAL IVP SCH (11:01)
[2018-09-05 11:20] VITALS: BMI 19.3
--- NOTE | 2018-09-05 13:21 | PDOC.GSPN ---
Surgery Progress Note: Subj - Subjective Patient reports: no new complaints (She is tolerating the continuous TF but would like to move back to bolus feeds for home) Surgery Progress Note: Obj - Vital signs Vital signs: Vital Signs - Most Recent Temp Pulse Resp BP Pulse Ox 98.0 F 83 18 144/81 H 95 09/05/18 12:00 09/05/18 12:00 09/05/18 12:00 09/05/18 12:00 09/05/18 12:00 - Physical Exam General: no distress Abdomen: soft, non tender Wound: healing well Surgery Progress Note: Results - Labs Result Diagrams: 09/03/18 05:30 09/04/18 04:57 Lab results: Laboratory Results - last 24 hr 09/05/18 09/05/18 09/05/18 04:00 05:24 11:36 POC Glucose 126 H 107 Magnesium 1.5 L Surgery Progress Note: A/P - Problem (1) Abdominal abscess Current Visit: Yes Code(s): [id number] - Status: Acute - Plan Plan: Plan revert back to bolus feeds -Will make sure she has all needs after DC accounted for -DC home as soon as tomorrow.
--- NOTE | 2018-09-05 15:47 | PDOC.PN ---
- Subjective Encounter Start Date: 09/05/18 Encounter Start Time: 12:00 Subjective: feels better -: no nausea or vomiting -: is amb in room - Objective Resuscitation Status - Order Detail: 08/20/18 01:08 Resuscitation Status Routine Resuscitation Status: PRTL: Cardiac only Discussed with: Patient Additional comments: DNI. Everything but intubation. MAR Reviewed: Yes Vital Signs & Weight: Vital Signs (12 hours) Temp Pulse Resp BP BP BP Pulse Ox 09/05/18 12:00 98.0 F 83 18 144/81 H 95 09/05/18 08:36 125/76 09/05/18 07:49 97.9 F 83 14 125/76 97 09/05/18 07:32 95 09/05/18 04:00 98.4 F 86 16 119/77 95 Weight Admit Weight 89 lb 12.8 oz Weight 99 lb I&O: 09/04/18 09/05/18 09/06/18 06:59 06:59 06:59 Intake Total 3240 3000 30 Output Total 850 950 Balance 2390 2050 30 Result Diagrams: 09/03/18 05:30 09/04/18 04:57 Additional Labs: Accuchecks 09/05/18 09/05/18 09/04/18 11:36 05:24 23:36 POC Glucose 107 126 H 95 09/04/18 09/04/18 23:31 15:54 POC Glucose 107 104 Phys Exam - Physical Examination HEENT: PERRLA, moist MMs Neck: no JVD, supple Respiratory: no wheezing, no rales Cardiovascular: RRR, no significant murmur Gastrointestinal: soft, non-tender, positive bowel sounds ileostomy, has ashely drain+ Musculoskeletal: no edema, pulses present Neurological: non-focal, moves all 4 limbs Psychiatric: normal affect, A&O x 3 Dx/Plan (1) Intra-abdominal abscess Code(s): K65.1 - PERITONEAL ABSCESS Status: Chronic Comment: parastomal abscess s/p drainage (2) Failure to thrive Code(s): [id number] - Status: Chronic Qualifiers: Failure to thrive age range: in adult Qualified Code(s): R62.7 - Adult failure to thrive (3) Protein-calorie malnutrition, moderate Code(s): E44.0 - MODERATE PROTEIN-CALORIE MALNUTRITION Status: Chronic (4) Crohn's disease Code(s): K50.90 - CROHN'S DISEASE, UNSPECIFIED, WITHOUT COMPLICATIONS Status: Chronic Qualifiers: Gastrointestinal tract location: small and large intestine Comment: h/o ileocecectomy for stricture and adenocarcinoma- completely removed with clear margins (5) GERD (gastroesophageal reflux disease) Code(s): K21.9 - GASTRO-ESOPHAGEAL REFLUX DISEASE WITHOUT ESOPHAGITIS Status: Chronic Qualifiers: Comment: stable (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 Margins are clear - Plan is on zosyn and zyvox -: continue peg feeding, asp, coreg, marinol, escitalopram -: likely dc plan in am -: needs outpt antibiotic arrangement and peg feeds as well * . Review of Systems - Medications/Allergies Allergies/Adverse Reactions: Allergies Allergy/AdvReac Type Severity Reaction Status Date / Time morphine Allergy Delirium Verified 08/29/18 21:19 ciprofloxacin [From Cipro] AdvReac Verified 08/19/18 23:03 hydrocodone AdvReac Verified 08/19/18 23:03 Medications: Current Medications Albuterol/Ipratropium (Duoneb) 3 ml NEB Q6H PRN PRN Reason: SOB &/or Wheezing Lipase/Protease/Amylase (Demetrius Agosto [id number]) 1 cap FS .PER PROTOCOL PRN PRN Reason: TUBE OCCLUSION PROTOCOL Aspirin (Aspirin Chewable) 81 mg PO DAILY [facility] Last Admin: 09/05/18 08:37 Dose: 81 mg Carvedilol (Coreg) 6.25 mg PO BID [facility] Last Admin: 09/05/18 08:36 Dose: 6.25 mg Diphenoxylate HCl/Atropine (Lomotil) 2 tab PO Q6HR [facility] Last Admin: 09/05/18 12:17 Dose: 2 tab Dronabinol (Marinol) 5 mg PO BID-AC [facility] Last Admin: 09/05/18 06:39 Dose: 5 mg Escitalopram Oxalate (Lexapro) 20 mg PO DAILY [facility] Last Admin: 09/05/18 08:36 Dose: 20 mg Folic Acid (Folvite) 1 mg PO DAILY [facility] Last Admin: 09/05/18 08:36 Dose: 1 mg Piperacillin Sod/Tazobactam (Sod 3.375 gm/ Sodium Chloride) 100 mls @ 200 mls/ hr IVPB 0200,0800,1400,2000 [facility] Last Admin: 09/05/18 15:19 Dose: 100 mls Linezolid 600 mg/ Device 300 mls @ 150 mls/hr IVPB 0400,1600 [facility] Last Admin: 09/05/18 03:58 Dose: 300 mls Magnesium Oxide (Magnesium Oxide) 400 mg PO BID [facility] Last Admin: 09/05/18 08:36 Dose: 400 mg Multivitamins (Theragran) 1 tab PO DAILY [facility] Last Admin: 09/05/18 08:37 Dose: 1 tab Ondansetron HCl (Zofran) 4 mg IVP Q6H PRN PRN Reason: Nausea/Vomiting Last Admin: 09/03/18 20:21 Dose: 4 mg Ondansetron HCl (Zofran Odt) 8 mg PO Q6H PRN PRN Reason: Nausea/Vomiting Pantoprazole Sodium (Protonix) 40 mg PO DAILY [facility] Last Admin: 09/05/18 08:37 Dose: 40 mg Potassium Citrate (Urocit K) 10 meq PO BID [facility] Last Admin: 09/05/18 08:37 Dose: 10 meq Promethazine HCl (Phenergan) 12.5 mg IM Q4H PRN PRN Reason: Nausea Last Admin: 08/29/18 20:16 Dose: 12.5 mg Saccharomyces Boulardii (Florastor) 250 mg PO DAILY [facility] Last Admin: 09/05/18 08:36 Dose: 250 mg Sodium Bicarbonate (Bicarbonate, Sodium) 650 mg PER TUBE .PER PROTOCOL PRN PRN Reason: ENTERAL TUBE OCCLUSION Sodium Chloride (Sodium Chloride) 1 gm PO BID [facility] Last Admin: 09/05/18 08:37 Dose: 1 gm Sodium Chloride (Flush - Normal Saline) 10 ml IVF PRN PRN PRN Reason: Saline Flush Last Admin: 08/28/18 14:51 Dose: 10 ml Trazodone HCl (Desyrel) 50 mg PO HSPRN PRN PRN Reason: Insomnia
--- NOTE | 2018-09-05 20:01 | PRG ---
DATE OF SERVICE: 09/05/2018 SUBJECTIVE: Ms. Kwan apparently tolerated tube feeding over the weekend. She has been weaned off her TPN. Attempted to give her bolus today, resulted in vomiting. OBJECTIVE: VITAL SIGNS: Temperature is 98, pulse 85, and blood pressure 144/81. LUNGS: Clear. HEART: Rate and rhythm without clicks, rubs, or murmurs. ABDOMEN: Soft and nontender. Affect is flat. There is no rebound or guarding. LABORATORY DATA: She had normal cortisol stem test last admission. Her white count of 14, hemoglobin 8, and platelet count 902 as of the . ASSESSMENT: 1. Crohn's. 2. No evidence of inflammatory disease. 3. Peristomal abscess. 4. 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 5. Anorexia, intermittent vomiting. Tolerates tube feeds, but not bolus feeds. RECOMMENDATIONS: Could go back to the drip feeds. Another option we try to see if we get her to eat regular food now. She states she has no appetite. She is to start back on her Humira and we will reboluses and get her back on a regimen when she gets discharged. We will follow along with you. Job ID: [id number]
[2018-09-06] MEDS: Piperacillin/Tazobactam 3.375 GM in Sodium Chloride 0.9% 100 ML IVPB SCH ×4 (01:56→20:09)
[2018-09-06] MEDS: Linezolid 600 MG in Premix Bag 1 BAG IVPB SCH ×2 (03:42→16:08)
[2018-09-06] MEDS: Diphenoxylate HCl/Atropine Tablet PO SCH ×4 (05:43→23:58)
[2018-09-06] MEDS: Dronabinol 2.5 MG CAP PO SCH ×2 (06:36→16:55)
[2018-09-06 07:17] LABS: #Basophils 0.1 thou/uL (0.0-0.2); #Lymphocytes 3.1 thou/uL (1.20-3.40); #Monocytes 1.3 thou/uL (0.11-0.59); #Neutrophils 7.7 thou/uL (1.40-6.50); %Eosinophils 7.4 % (0.0-10.0); %Lymphocytes 23.2 % (21.0-51.0); %Monocytes 9.6 % (0.0-10.0); %Neutrophils 58.8 % (42.0-75.0); Hemoglobin 9.2 g/dL (12.0-16.0); Mean Corpuscular HGB CONC 32.8 g/dL (32.0-36.0); Mean Corpuscular Hemoglobin 30.6 pg (27.0-31.0); Mean Corpuscular Volume 93.2 fL (78.0-98.0); Mean Platelet Volume 6.2 fL (7.4-10.4); Platelet Count 899 thou/uL (130-400); RBC Distribution Width 16.1 % (11.5-14.5); Red Blood Cell (RBC) Count 2.99 mill/uL (4.20-5.40); White Blood Cell (WBC) Count 13.2 thou/uL (4.8-10.8)
--- NOTE | 2018-09-06 07:32 | PRG ---
DATE OF SERVICE: 09/06/2018 SUBJECTIVE: Ms. Kwan did not tolerate the bolus feeds. She is back on continuous feeds. She has minimal to no p.o. intake on top of that. OBJECTIVE: VITAL SIGNS: She is afebrile. Vital signs are stable. ABDOMEN: Soft and nontender. ASSESSMENT: Chronic deconditioning, improved, but going to need to go home on IV antibiotics and tube feeds. PLAN: We will make sure everything is ready for her to go home tomorrow on continuous feeds. Her dietitian via Home Health can always put her back on bolus feeds or nocturnal feeds after discharge. Job ID: [id number]
[2018-09-06 07:36] LABS: Anion Gap 15 mmol/L (10-20); BUN (Urea Nitrogen) 14 mg/dL (9.8-20.1); Calc. Creatinine Clearance 40 mL/min (70-130); Calcium 10.2 mg/dL (7.8-10.44); Carbon Dioxide 28 mmol/L (22-29); Chloride 95 mmol/L (98-107); Estimated GFR-MDRD 50; Glucose 96 mg/dL (70-105); Potassium 4.8 mmol/L (3.5-5.1); Sodium 133 mmol/L (136-145)
[2018-09-06] MEDS: Folic Acid 1 MG TAB PO SCH (08:40)
[2018-09-06] MEDS: Multivit, Therapeutic 1 TAB PO SCH (08:40)
[2018-09-06] MEDS: Aspirin Chewable 81 MG TAB PO SCH (08:40)
[2018-09-06] MEDS: Escitalopram Oxalate 20 mg Tablet PO SCH (08:40)
[2018-09-06] MEDS: Saccharomyces boulardii 250 MG CAP PO SCH (08:40)
[2018-09-06] MEDS: Sodium Chloride 1 GM TAB PO SCH ×2 (08:40→20:10)
[2018-09-06] MEDS: Carvedilol 6.25 MG TAB PO SCH ×2 (08:40→20:10)
[2018-09-06] MEDS: Potassium Citrate 10 MEQ TAB PO SCH ×2 (08:40→20:10)
[2018-09-06] MEDS: Magnesium Oxide 400 MG TAB PO SCH ×2 (08:40→20:10)
--- NOTE | 2018-09-06 15:04 | PDOC.PN ---
- Subjective Encounter Start Date: 09/06/18 Encounter Start Time: 12:15 Subjective: feels good now -: no nausea after restarting on drip -: is drinking/eating including gatorade, cereal etc - Objective Resuscitation Status - Order Detail: 08/20/18 01:08 Resuscitation Status Routine Resuscitation Status: PRTL: Cardiac only Discussed with: Patient Additional comments: DNI. Everything but intubation. MAR Reviewed: Yes Vital Signs & Weight: Vital Signs (12 hours) Temp Pulse Resp BP BP Pulse Ox 09/06/18 12:35 98.2 F 82 18 124/81 97 09/06/18 08:40 125/79 09/06/18 07:45 98.4 F 80 18 125/79 95 09/06/18 07:32 98 09/06/18 04:39 97.9 F 79 16 119/74 98 Weight Admit Weight 89 lb 12.8 oz Weight 99 lb I&O: 09/05/18 09/06/18 09/07/18 06:59 06:59 06:59 Intake Total 3000 3120 30 Output Total 950 925 Balance 2049 2195 30 Result Diagrams: 09/06/18 06:40 09/06/18 06:40 Additional Labs: Accuchecks 09/06/18 09/06/18 09/05/18 11:41 05:45 23:18 POC Glucose 119 H 116 H 86 Phys Exam - Physical Examination HEENT: PERRLA, moist MMs Neck: no JVD, supple Respiratory: no wheezing, no rales Cardiovascular: RRR, no significant murmur Gastrointestinal: soft, non-tender, positive bowel sounds ileostomy+, peg+ Musculoskeletal: no edema, pulses present Neurological: non-focal, moves all 4 limbs Psychiatric: normal affect, A&O x 3 Dx/Plan (1) Intra-abdominal abscess Code(s): K65.1 - PERITONEAL ABSCESS Status: Chronic Comment: parastomal abscess s/p drainage (2) Failure to thrive Code(s): [id number] - Status: Chronic Qualifiers: Failure to thrive age range: in adult Qualified Code(s): R62.7 - Adult failure to thrive (3) Protein-calorie malnutrition, moderate Code(s): E44.0 - MODERATE PROTEIN-CALORIE MALNUTRITION Status: Chronic (4) Crohn's disease Code(s): K50.90 - CROHN'S DISEASE, UNSPECIFIED, WITHOUT COMPLICATIONS Status: Chronic Qualifiers: Gastrointestinal tract location: small and large intestine Comment: h/o ileocecectomy for stricture and adenocarcinoma- completely removed with clear margins (5) GERD (gastroesophageal reflux disease) Code(s): K21.9 - GASTRO-ESOPHAGEAL REFLUX DISEASE WITHOUT ESOPHAGITIS Status: Chronic Qualifiers: Comment: stable (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 Margins are clear - Plan hemostable -: dc plan per gen surgery adv -: will need outpt antibiotics and peg feeds ?pump for continous feed -: continue current meds asp, coreg, marinol, citalopram -: is on zyvox and zosyn * . Review of Systems - Medications/Allergies Allergies/Adverse Reactions: Allergies Allergy/AdvReac Type Severity Reaction Status Date / Time morphine Allergy Delirium Verified 08/29/18 21:19 ciprofloxacin [From Cipro] AdvReac Verified 08/19/18 23:03 hydrocodone AdvReac Verified 08/19/18 23:03 Medications: Current Medications Albuterol/Ipratropium (Duoneb) 3 ml NEB Q6H PRN PRN Reason: SOB &/or Wheezing Lipase/Protease/Amylase (Demetrius Agosto [id number]) 1 cap FS .PER PROTOCOL PRN PRN Reason: TUBE OCCLUSION PROTOCOL Aspirin (Aspirin Chewable) 81 mg PO DAILY [facility] Last Admin: 09/06/18 08:40 Dose: 81 mg Carvedilol (Coreg) 6.25 mg PO BID [facility] Last Admin: 09/06/18 08:40 Dose: 6.25 mg Diphenoxylate HCl/Atropine (Lomotil) 2 tab PO Q6HR [facility] Last Admin: 09/06/18 13:08 Dose: 2 tab Dronabinol (Marinol) 5 mg PO BID-AC [facility] Last Admin: 09/06/18 06:36 Dose: 5 mg Escitalopram Oxalate (Lexapro) 20 mg PO DAILY [facility] Last Admin: 09/06/18 08:40 Dose: 20 mg Folic Acid (Folvite) 1 mg PO DAILY [facility] Last Admin: 09/06/18 08:40 Dose: 1 mg Piperacillin Sod/Tazobactam (Sod 3.375 gm/ Sodium Chloride) 100 mls @ 200 mls/ hr IVPB 0200,0800,1400,2000 [facility] Last Admin: 09/06/18 13:15 Dose: 100 mls Linezolid 600 mg/ Device 300 mls @ 150 mls/hr IVPB 0400,1600 [facility] Last Admin: 09/06/18 03:42 Dose: 300 mls Magnesium Oxide (Magnesium Oxide) 400 mg PO BID [facility] Last Admin: 09/06/18 08:40 Dose: 400 mg Multivitamins (Theragran) 1 tab PO DAILY [facility] Last Admin: 09/06/18 08:40 Dose: 1 tab Ondansetron HCl (Zofran) 4 mg IVP Q6H PRN PRN Reason: Nausea/Vomiting Last Admin: 09/03/18 20:21 Dose: 4 mg Ondansetron HCl (Zofran Odt) 8 mg PO Q6H PRN PRN Reason: Nausea/Vomiting Last Admin: 09/05/18 18:30 Dose: 8 mg Pantoprazole Sodium (Protonix) 40 mg PO DAILY [facility] Last Admin: 09/06/18 08:40 Dose: 40 mg Potassium Citrate (Urocit K) 10 meq PO BID [facility] Last Admin: 09/06/18 08:40 Dose: 10 meq Promethazine HCl (Phenergan) 12.5 mg IM Q4H PRN PRN Reason: Nausea Last Admin: 08/29/18 20:16 Dose: 12.5 mg Saccharomyces Boulardii (Florastor) 250 mg PO DAILY [facility] Last Admin: 09/06/18 08:40 Dose: 250 mg Sodium Bicarbonate (Bicarbonate, Sodium) 650 mg PER TUBE .PER PROTOCOL PRN PRN Reason: ENTERAL TUBE OCCLUSION Sodium Chloride (Sodium Chloride) 1 gm PO BID [facility] Last Admin: 09/06/18 08:40 Dose: 1 gm Sodium Chloride (Flush - Normal Saline) 10 ml IVF PRN PRN PRN Reason: Saline Flush Last Admin: 08/28/18 14:51 Dose: 10 ml Trazodone HCl (Desyrel) 50 mg PO HSPRN PRN PRN Reason: Insomnia
--- NOTE | 2018-09-06 15:44 | PRG ---
DATE OF SERVICE: 09/06/2018 SUBJECTIVE: Ms. Kwan is back on tube feeds, so she is tolerating those fine. She could not tolerate bolus feeds. OBJECTIVE: VITAL SIGNS: Temperature is 98, pulse of 82, blood pressure is 124/81. GENERAL: She has flat affect. LUNGS: Clear. ABDOMEN: Soft, nontender. PEG tube site is fine, and her ileostomy site is fine. LABORATORY DATA: White count 13, hemoglobin 8.1, platelet count 899. Sodium 133, potassium 4.8. BUN and creatinine are 14 and 1.13. ASSESSMENT: 1. Anorexia. She has had an endoscopy. She has had imaging. She has had drainage of abscess. She is on appetite stimulants and antidepressants without much improvement. 2. Ileal cancer, this was a T1 lesion, removed surgically. 3. Crohn disease. Previously, endoscopically in remission. She has been off medicine over 3 months. There are no overt signs of active Crohn's, but one wonders it contributes to her anorexia. 4. Peristomal abscess drained. RECOMMENDATIONS: Hopefully, she will tolerate tube feeds. Agree with just keeping her on continuous tube feeds, probably reasonable for her to go back to a rehab situation. As soon as she gets out of the hospital, I am going to see her back and we will get her reloaded on Humira in the outpatient setting. As her abscess has been drained and she is appropriately covered with antibiotics, at this point in time, I do not think that would increase risk of infectious complications. Job ID: [id number]
[2018-09-07] MEDS: Piperacillin/Tazobactam 3.375 GM in Sodium Chloride 0.9% 100 ML IVPB SCH ×3 (03:00→15:06)
[2018-09-07] MEDS: Linezolid 600 MG in Premix Bag 1 BAG IVPB SCH (03:07)
[2018-09-07] MEDS ORDERED: Piperacillin/Tazobactam 3.375 GM VIAL ONE (03:15)
[2018-09-07] MEDS: Diphenoxylate HCl/Atropine Tablet PO SCH ×2 (05:05→11:21)
[2018-09-07] MEDS: Dronabinol 2.5 MG CAP PO SCH (06:30)
[2018-09-07] MEDS: Saccharomyces boulardii 250 MG CAP PO SCH (09:11)
[2018-09-07] MEDS: Carvedilol 6.25 MG TAB PO SCH (09:11)
[2018-09-07] MEDS: Magnesium Oxide 400 MG TAB PO SCH (09:11)
[2018-09-07] MEDS: Multivit, Therapeutic 1 TAB PO SCH (09:11)
[2018-09-07] MEDS: Folic Acid 1 MG TAB PO SCH (09:11)
[2018-09-07] MEDS: Escitalopram Oxalate 20 mg Tablet PO SCH (09:11)
[2018-09-07] MEDS: Aspirin Chewable 81 MG TAB PO SCH (09:12)
[2018-09-07] MEDS: Sodium Chloride 1 GM TAB PO SCH (09:12)
[2018-09-07] MEDS: Potassium Citrate 10 MEQ TAB PO SCH (09:12)
--- NOTE | 2018-09-07 13:58 | PDOC.PN ---
- Subjective Encounter Start Date: 09/07/18 Encounter Start Time: 08:00 Subjective: feels better, no nausea or abd pain - Objective Resuscitation Status - Order Detail: 08/20/18 01:08 Resuscitation Status Routine Resuscitation Status: PRTL: Cardiac only Discussed with: Patient Additional comments: DNI. Everything but intubation. MAR Reviewed: Yes Vital Signs & Weight: Vital Signs (12 hours) Temp Pulse Resp BP Pulse Ox 09/07/18 12:00 98.0 F 73 14 121/76 96 09/07/18 07:40 98.3 F 83 16 129/81 96 09/07/18 04:00 98.5 F 87 16 121/78 97 Weight Admit Weight 89 lb 12.8 oz Weight 99 lb I&O: 09/06/18 09/07/18 09/08/18 06:59 06:59 06:59 Intake Total 3120 3580 30 Output Total 925 525 Balance 2195 3055 30 Result Diagrams: 09/06/18 06:40 09/06/18 06:40 Additional Labs: Accuchecks 09/07/18 09/07/18 09/06/18 11:47 00:30 17:54 POC Glucose 129 H 112 H 129 H Phys Exam - Physical Examination HEENT: PERRLA, moist MMs Neck: no JVD, supple Respiratory: no wheezing, no rales Cardiovascular: RRR, no significant murmur Gastrointestinal: soft, non-tender, positive bowel sounds ileostomy+, peg+ Musculoskeletal: no edema, pulses present Neurological: non-focal, moves all 4 limbs Psychiatric: normal affect, A&O x 3 Dx/Plan (1) Intra-abdominal abscess Code(s): K65.1 - PERITONEAL ABSCESS Status: Chronic Comment: parastomal abscess s/p drainage (2) Failure to thrive Code(s): [id number] - Status: Chronic Qualifiers: Failure to thrive age range: in adult Qualified Code(s): R62.7 - Adult failure to thrive (3) Protein-calorie malnutrition, moderate Code(s): E44.0 - MODERATE PROTEIN-CALORIE MALNUTRITION Status: Chronic (4) Crohn's disease Code(s): K50.90 - CROHN'S DISEASE, UNSPECIFIED, WITHOUT COMPLICATIONS Status: Chronic Qualifiers: Gastrointestinal tract location: small and large intestine Comment: h/o ileocecectomy for stricture and adenocarcinoma- completely removed with clear margins (5) GERD (gastroesophageal reflux disease) Code(s): K21.9 - GASTRO-ESOPHAGEAL REFLUX DISEASE WITHOUT ESOPHAGITIS Status: Chronic Qualifiers: Comment: stable (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 Margins are clear - Plan hemostable -: all arrangements for outpt zyvox, zosyn and tube feeds have been arranged p -: -er case mgmt. -: May dc home if cleared by gen surgery -: to f/u with and as adv to restart humira * .
[2018-09-07 15:29] VITALS: BP 142/84; TEMP 97.8
--- NOTE | 2018-09-08 11:53 | DIS ---
DATE OF ADMISSION: 08/19/2018 DATE OF DISCHARGE: 09/07/2018 DISCHARGE DISPOSITION: Home. PRIMARY DISCHARGE DIAGNOSES: 1. Parastomal abscess, status post drainage and revision of ileostomy. 2. Failure to thrive. 3. Moderate malnutrition. 4. Crohn disease. 5. Gastroesophageal reflux disease. 6. Sepsis due to parastomal abscess. PROCEDURES DONE DURING HOSPITALIZATION: The patient had revision of ileostomy with drainage of parastomal abscess (intraabdominal) on 08/25/[address] Hickey. Abdominal abscess, wound cultures have grown Enterococcus faecium sensitive to Zyvox and vancomycin. Blood cultures x2, no growth. She had an initial white count of 27 with a white count of 13 on the of this month; H and H are 9 and 27; platelets count 899. BUN and creatinine are 14 and 1.1 on the of this month. Serum iron 8, TIBC 195, ferritin was 371. She had an albumin of 2.3 on 08/28. DISCHARGE MEDICATIONS: 1. Aspirin 81 mg p.o. daily. 2. Zyvox, until the 18th, 600 mg IV q.12. 3. Zosyn 3.375 g IV q.6 hourly until the 18th. 4. Florastor 250 mg p.o. daily. 5. Multivitamin 1 tablet once daily. 6. DuoNeb q.6 hourly p.r.n. 7. Folic acid 1 mg p.o. daily. 8. Lexapro 20 mg p.o. daily. 9. Marinol 5 mg p.o. twice daily. 10. Coreg 6.25 mg p.o. twice daily. 11. Trazodone 50 mg p.o. at bedtime p.r.n. 12. Ultram p.r.n. for pain. 13. Potassium citrate 10 mEq p.o. twice daily. 14. Protonix 40 mg p.o. daily. ALLERGIES: ALLERGIC TO MORPHINE, CIPROFLOXACIN, HYDROCODONE. INPATIENT CONSULTS: 1. Dr. Cespedes for Gastroenterology. 2. Dr. Hickey for General Surgery. 3. Dr. Martinez for Infectious Disease. DISCHARGE PLAN: The patient to follow up with Dr. Hickey as advised. BRIEF COURSE DURING HOSPITALIZATION: The patient initially was admitted after she was sent over by her primary care physician as her white count was elevated and the patient was not tolerating PEG feeding. She was found to have had a parastomal abscess and had this drained. She still has a Kevin drain inside her ileostomy and her ileostomy was revised as well by Dr. Hickey during her stay here. The cultures from the parastomal abscess are growing Enterococcus and Staph aureus. Based on culture sensitivity, she was placed on Zyvox and Zosyn by Dr. Martinez. She was also evaluated by Dr. Cespedes during her stay here. She has had slow and steady recovery. [employer], both [employer] have been arranged for her IV antibiotics and PEG tube care with feeding. Prior to discharge, she is tolerating continuous PEG feeding. She does not tolerate bolus feeding via her PEG. The patient also needs to follow up with Dr. Cespedes for possible reloading of [facility] for history of Crohn disease in the outpatient setting in 2 weeks. She is hemodynamically stable and has been cleared by General Surgery for discharge. Please see a face to face documentation for the day of discharge on [employer]. Job ID: [id number] [facility]
== END 2018-09-07 16:50 | disposition home health service (06) | DRG 347 ==
LOC: ERS 18:01 → 2NO 21:00 → OBSVTOIN 21:00 → SJJU 08-24 17:06
PROVIDERS: ADMIT Internal Medicine; ATTEND Internal Medicine
PROC: 0WQFXZ2 Repair Abdominal Wall, Stoma, External Approach (ICD-10-PCS; principal; 2018-08-26)
PROC: 0W9G0ZZ Drainage of Peritoneal Cavity, Open Approach (ICD-10-PCS; 2018-08-26)
PROC: 30233N1 Transfusion of Nonautologous Red Blood Cells into Peripheral Vein, Percutaneous Approach (ICD-10-PCS; 2018-08-28)
PROC: 02HV33Z Insertion of Infusion Device into Superior Vena Cava, Percutaneous Approach (ICD-10-PCS; 2018-08-29)
PROC: 3E0436Z Introduction of Nutritional Substance into Central Vein, Percutaneous Approach (ICD-10-PCS; 2018-08-29)
DX: K94.12 Enterostomy infection (principal); A41.9 Sepsis, unspecified organism; K65.1 Peritoneal abscess; E87.1 Hypo-osmolality and hyponatremia; N17.9 Acute kidney failure, unspecified; K50.80 Crohn's disease of both small and large intestine without complications; K56.7 Ileus, unspecified; Z68.1 Body mass index [BMI] 19.9 or less, adult; E44.0 Moderate protein-calorie malnutrition; C17.2 Malignant neoplasm of ileum; J44.9 Chronic obstructive pulmonary disease, unspecified; D47.3 Essential (hemorrhagic) thrombocythemia; D63.8 Anemia in other chronic diseases classified elsewhere; E87.6 Hypokalemia; E83.42 Hypomagnesemia; B95.2 Enterococcus as the cause of diseases classified elsewhere; B95.61 Methicillin susceptible Staphylococcus aureus infection as the cause of diseases classified elsewhere; R76.11 Nonspecific reaction to tuberculin skin test without active tuberculosis; Z66 Do not resuscitate; K21.9 Gastro-esophageal reflux disease without esophagitis; F32.9 Major depressive disorder, single episode, unspecified; Z79.82 Long term (current) use of aspirin; Z90.49 Acquired absence of other specified parts of digestive tract; Z87.891 Personal history of nicotine dependence; Z88.5 Allergy status to narcotic agent; Z88.1 Allergy status to other antibiotic agents; Y83.2 Surgical operation with anastomosis, bypass or graft as the cause of abnormal reaction of the patient, or of later complication, without mention of misadventure at the time of the procedure
CPT/HCPCS: 36415; 36416; 36430; 36569; 71046; 80048; 80053; 80076; 81001; 82728; 83540; 83550; 83735; 83935; 85025; 85060; 86850; 86900; 86901; 87040; 87070; 87077; 87086; 87186; 87205; 93005; 96361; 96365; 96375; C1751; J0131; J0696; J1100; J1200; J1650; J1885; J2001; J2020; J2250; J2405; J2543; J2550; J2704; J2997; J3010; J3370; J3475; J3480; J7050; P9016; Q0167

== ENCOUNTER 2019-02-02 15:56 | Inpatient (IN) | payer BC ==
[2019-02-02] MEDS ORDERED: Acetaminophen 325 MG TAB PO PRN (19:07)
[2019-02-02] MEDS ORDERED: Dextrose 5 % And 0.9 % NaCl 1,000 ML IV SCH (19:15)
[2019-02-02 19:40] LABS: #Basophils 0.1 thou/uL (0.0-0.2); #Eosinphils 0.7 thou/uL (0.0-0.7); #Lymphocytes 4.8 thou/uL (1.20-3.40); #Monocytes 1.4 thou/uL (0.11-0.59); #Neutrophils 9.7 thou/uL (1.40-6.50); %Basophils 0.6 % (0.0-1.0); %Eosinophils 3.9 % (0.0-10.0); %Lymphocytes 28.8 % (21.0-51.0); %Monocytes 8.6 % (0.0-10.0); %Neutrophils 58.1 % (42.0-75.0); Mean Corpuscular HGB CONC 36.1 g/dL (32.0-36.0); Mean Corpuscular Hemoglobin 34.1 pg (27.0-31.0); Mean Corpuscular Volume 94.4 fL (78.0-98.0); Mean Platelet Volume 6.4 fL (7.4-10.4); Platelet Count 675 thou/uL (130-400); RBC Distribution Width 12.4 % (11.5-14.5); Red Blood Cell (RBC) Count 3.81 mill/uL (4.20-5.40); White Blood Cell (WBC) Count 16.7 thou/uL (4.8-10.8)
[2019-02-02 20:01] LABS: ALT (SGPT) 42 U/L (8-55); AST (SGOT) 49 U/L (5-34); Albumin 4.7 g/dL (3.5-5.0); Alkaline Phosphatase 140 U/L (40-150); Anion Gap 14 mmol/L (10-20); BUN (Urea Nitrogen) 48 mg/dL (9.8-20.1); Bilirubin, Total 0.6 mg/dL (0.2-1.2); Calc. Creatinine Clearance 0 mL/min (70-130); Calcium 10.9 mg/dL (7.8-10.44); Carbon Dioxide 28 mmol/L (22-29); Chloride 79 mmol/L (98-107); Estimated GFR-MDRD 21; Glucose 90 mg/dL (70-105); Lipase 75 U/L (8-78); Potassium 4.3 mmol/L (3.5-5.1); Protein, Total 8.7 g/dL (6.0-8.3)
[2019-02-02 20:04] LABS: Sodium 117 mmol/L (136-145)
[2019-02-02] MEDS ORDERED: Sodium Chloride 0.9% 1,000 ML IV SCH (20:30)
[2019-02-02] MEDS ORDERED: Famotidine 20 MG TAB PO SCH (21:00)
[2019-02-02 23:40] LABS: Bacteria/HPF None Seen HPF (None Seen); Bilirubin Negative (Negative); Blood, Urine Negative (Negative); Clarity Clear (Clear); Glucose, Urine (Dipstick) Normal (Negative); Leukocyte Negative Leu/uL (Negative); Nitrite Negative (Negative); Protein, Urine (Dipstick) Negative (Neg-Trace); RBC/HPF 0-3 HPF (0-3); Squamous Epithelial 0-3 HPF (0-3); Urobilinogen Normal mg/dL (Less than 2); WBC/HPF 0-3 HPF (0-3)
[2019-02-03 00:09] LABS: Anion Gap 14 mmol/L (10-20); BUN (Urea Nitrogen) 48 mg/dL (9.8-20.1); Calc. Creatinine Clearance 22 mL/min (70-130); Calcium 10.1 mg/dL (7.8-10.44); Carbon Dioxide 27 mmol/L (22-29); Chloride 81 mmol/L (98-107); Estimated GFR-MDRD 22; Glucose 82 mg/dL (70-105); Potassium 4.2 mmol/L (3.5-5.1)
[2019-02-03 00:20] LABS: Sodium 118 mmol/L (136-145)
[2019-02-03] MEDS ORDERED: Diphenoxylate HCl/Atropine Tablet PO PRN (00:29)
[2019-02-03] MEDS: Sodium Chloride 0.9% 1,000 ML IV SCH ×3 (00:37→18:23)
--- NOTE | 2019-02-03 04:18 | HP ---
PRIMARY CARE DOCTOR: Dr. Mandi Musa. Patient is admitted at the behest of Dr. Cespedes GI. HISTORY OF PRESENT ILLNESS: Ms. Kwan is a 53-year-old female with a history of Crohn's disease who developed a stricture near the ileocecal junction and underwent an ileocecectomy in early June. The patient's pathology did show some early cancer cells T1 N0. She subsequently dehisced that wound, had to come back and have a washout with a diverting ileostomy. Subsequently, after that point, she developed intraabdominal abscess requiring readmission with percutaneous CT drainage and a prolonged course of IV antibiotics. She developed a fungal bacteremia possibly related to an infected PICC line which was pulled. Patient has a PEG tube placed in July 2018. Reports she does receive tube feedings and free-fluid. She was being followed by Dr. Cespedes who has been watching the ileostomy and when she was seen on the of this month for evaluation of the ileostomy with plans to have reversal next week by Dr. Hickey, Dr. Cespedes noted that her white blood cell count was elevated more than normal and that her kidney function had decreased with a creatinine of 2.35 today, BUN of 48, estimated GFR of 21. The last time we have been on record here on October 10, 2018, her GFR was 40. Patient reports that she has been well and that she was looking for the surgery next week to reverse the ileostomy and is very upset that she has to be hospitalized for this. Dr. Cespedes requested that she come and be admitted to address the RUT and leukocytosis. She came through the emergency room registration earlier today and was a direct admit to the hospitalist service with Dr. Cespedes as a clothing consultant. Patient reports that she is still not taking a great deal of p.o. reports that he did increase her free-water after the PEG tube. Reports that he was giving her 45 mL per hour from 30. Does eat a small amount, drinks a small amount, does have a significant amount of liquid output in the ileostomy. She denies any fever, chills, or any other symptoms that might account for the increased white blood cell count. She is working and otherwise for her healthy, not feeling bad at all and is upset that she had to be admitted. REVIEW OF SYSTEMS: All other systems reviewed and all pertinent positives, negatives noted in the HPI. 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 PAST SURGICAL HISTORY: Cholecystectomy, ileocecectomy, diverting ileostomy, and CT-guided intraabdominal abscess. FAMILY HISTORY: Positive for cancer . SOCIAL HISTORY: Patient was a former smoker, recently discontinued. Denies any alcohol or drugs. , lives with her in [place]. ALLERGIES: TO CIPRO AND HYDROCODONE. CURRENT MEDICATIONS: Need to be reconciled. PHYSICAL EXAMINATION: VITAL SIGNS: Temp is 98.1, pulse is 98, respiratory rate is 20, pO2 sats are 98% on room air, and blood pressure is 109/60. GENERAL APPEARANCE: She is alert and oriented to person, place, and time. Very pleasant, although tearful today. HEENT: Head is atraumatic and normocephalic. ENT; mucous membranes are moist. Mouth exam is normal. NECK: Supple. Normal range of motion. HEART: Regular rate and rhythm without murmurs. Regular heart sounds. LUNGS: Clear to auscultation bilaterally. Normal chest wall expansion. ABDOMEN: Soft and nontender. She has a right-sided ileostomy tube with liquid stool. PEG site looks healthy with no evidence of cellulitis or infection. EXTREMITIES: No cyanosis, clubbing, or edema. NEUROLOGIC: Grossly intact. No focal deficits. IMPRESSION AND PLAN: 1. Leukocytosis of unclear etiology. At Dr. Cespedes' request, he would like to get patient hydrated. We started normal saline at 75 mL per hour. If her creatinine improves, he would like to get a CT scan of the abdomen and pelvis in the morning to ensure that there is nothing going on in the abdomen that would account for an elevated white blood cell count. We have asked Dr. Martinez to consult as he has seen her in the past, also Dr. Hickey. She was scheduled with him next week to have the ileostomy reversed. 2. Hyponatremia. We checked it here and it was 117. After discussion with Dr. Marvin, we have decreased the fluids that were ordered by Dr. Cespedes. He had ordered D5 NS. We have changed that to NS at 75 mL per hour and will recheck a base met close to midnight and see where her sodium is going. We have also ordered osmolarity serum to be checked. We will reevaluate this. 3. Acute kidney injury with an elevation of her BUN over most recent levels. She is largely dependent on PEG feeds with some free-water. We will rehydrate. We will ask the dietitian to reassess, give his input on her feeds. We have asked Nephrology to consult with the hyponatremia and acute kidney injury and would appreciate their insight. 4. Deep venous thrombosis and gastrointestinal prophylaxis have been started. 5. Case has been discussed with Dr. Cespedes and Dr. Marvin, who agree with the plan. 6. Plan for a CT scan of the abdomen and pelvis tomorrow if creatinine improves. 7. Hospital course depends on clinical findings. Job ID: [id number]
[2019-02-03 06:26] LABS: #Basophils 0.1 thou/uL (0.0-0.2); #Eosinphils 0.7 thou/uL (0.0-0.7); #Lymphocytes 4.1 thou/uL (1.20-3.40); #Monocytes 1.4 thou/uL (0.11-0.59); #Neutrophils 6.6 thou/uL (1.40-6.50); %Basophils 0.9 % (0.0-1.0); %Eosinophils 5.5 % (0.0-10.0); %Monocytes 10.7 % (0.0-10.0); %Neutrophils 50.9 % (42.0-75.0); Hemoglobin 11.6 g/dL (12.0-16.0); Mean Corpuscular Hemoglobin 34.1 pg (27.0-31.0); Mean Corpuscular Volume 94.7 fL (78.0-98.0); Mean Platelet Volume 6.5 fL (7.4-10.4); Platelet Count 554 thou/uL (130-400); RBC Distribution Width 12.4 % (11.5-14.5); Red Blood Cell (RBC) Count 3.39 mill/uL (4.20-5.40); White Blood Cell (WBC) Count 12.9 thou/uL (4.8-10.8)
[2019-02-03 06:47] LABS: Anion Gap 15 mmol/L (10-20); BUN (Urea Nitrogen) 47 mg/dL (9.8-20.1); Calc. Creatinine Clearance 23 mL/min (70-130); Carbon Dioxide 26 mmol/L (22-29); Chloride 86 mmol/L (98-107); Estimated GFR-MDRD 23; Glucose 84 mg/dL (70-105); Potassium 4.7 mmol/L (3.5-5.1); Sodium 122 mmol/L (136-145)
[2019-02-03] MEDS: Escitalopram Oxalate 20 mg Tablet PO SCH (07:31)
[2019-02-03] MEDS: Carvedilol 6.25 MG TAB PO SCH ×2 (07:32→16:31)
--- NOTE | 2019-02-03 07:55 | PDOC.GSPN ---
Surgery Progress Note: Subj - Subjective Narrative: Patient re-admitted Surgery Progress Note: Obj - Vital signs Vital signs: Vital Signs - Most Recent Temp Pulse Resp BP Pulse Ox 98.0 F 87 16 111/76 100 02/03/19 04:00 02/03/19 04:00 02/03/19 04:00 02/03/19 04:00 02/03/19 04:00 - Physical Exam General: no distress Respiratory: clear to auscultation Abdomen: soft, non tender, nondistended, positive bowel sounds Wound: other (Incisions all well healed) Surgery Progress Note: Results - Labs Result Diagrams: 02/03/19 05:49 02/03/19 05:49 Lab results: Laboratory Results - last 24 hr 02/02/19 02/02/19 02/02/19 19:27 19:27 19:27 WBC RBC Hgb Hct MCV MCH MCHC RDW Plt Count MPV Neutrophils % Lymphocytes % Monocytes % Eosinophils % Basophils % Neutrophils # Lymphocytes # Monocytes # Eosinophils # Basophils # ESR Westergren 59 Sodium 117 L* Potassium 4.3 Chloride 79 L Carbon Dioxide 28 Anion Gap 14 BUN 48 H Creatinine 2.35 H Estimated GFR (MDRD) 21 Glucose 90 Serum Osmolality Calcium 10.9 H Total Bilirubin 0.6 AST 49 H ALT 42 Alkaline Phosphatase 140 C-Reactive Protein Serum Total Protein 8.7 H Albumin 4.7 Globulin 4.0 H Albumin/Globulin Ratio 1.2 Lipase 75 TSH 3rd Generation 3.3727 Urine Color Urine Clarity Urine pH Ur Specific [place] Urine Protein Urine Glucose (UA) Urine Ketones Urine Blood Urine Nitrite Urine Bilirubin Urine Urobilinogen Ur Leukocyte Esterase Urine RBC Urine WBC Ur Squamous Epith Cells Urine Bacteria Urine Sodium 02/02/19 02/02/19 02/02/19 19:27 23:20 23:20 WBC RBC Hgb Hct MCV MCH MCHC RDW Plt Count MPV Neutrophils % Lymphocytes % Monocytes % Eosinophils % Basophils % Neutrophils # Lymphocytes # Monocytes # Eosinophils # Basophils # ESR Westergren Sodium Potassium Chloride Carbon Dioxide Anion Gap BUN Creatinine Estimated GFR (MDRD) Glucose Serum Osmolality Calcium Total Bilirubin AST ALT Alkaline Phosphatase C-Reactive Protein Less than 0.50 Serum Total Protein Albumin Globulin Albumin/Globulin Ratio Lipase TSH 3rd Generation Urine Color Light-Yellow Urine Clarity Clear Urine pH 5.0 Ur Specific [place] 1.008 Urine Protein Negative Urine Glucose (UA) Normal Urine Ketones Negative Urine Blood Negative Urine Nitrite Negative Urine Bilirubin Negative Urine Urobilinogen Normal Ur Leukocyte Esterase Negative Urine RBC 0-3 Urine WBC 0-3 Ur Squamous Epith Cells 0-3 Urine Bacteria None Seen Urine Sodium Less than 20 02/02/19 02/03/19 02/03/19 23:41 05:49 05:49 WBC 12.9 H RBC 3.39 L Hgb 11.6 L Hct 32.1 L MCV 94.7 MCH 34.1 H MCHC 36.0 RDW 12.4 Plt Count 554 H MPV 6.5 L Neutrophils % 50.9 Lymphocytes % 32.0 Monocytes % 10.7 H Eosinophils % 5.5 Basophils % 0.9 Neutrophils # 6.6 H Lymphocytes # 4.1 H Monocytes # 1.4 H Eosinophils # 0.7 Basophils # 0.1 ESR Westergren Sodium 118 L* 122 L Potassium 4.2 4.7 Chloride 81 L 86 L Carbon Dioxide 27 26 Anion Gap 14 15 BUN 48 H 47 H Creatinine 2.32 H 2.18 H Estimated GFR (MDRD) 22 23 Glucose 82 84 Serum Osmolality Calcium 10.1 10.0 Total Bilirubin AST ALT Alkaline Phosphatase C-Reactive Protein Serum Total Protein Albumin Globulin Albumin/Globulin Ratio Lipase TSH 3rd Generation Urine Color Urine Clarity Urine pH Ur Specific [place] Urine Protein Urine Glucose (UA) Urine Ketones Urine Blood Urine Nitrite Urine Bilirubin Urine Urobilinogen Ur Leukocyte Esterase Urine RBC Urine WBC Ur Squamous Epith Cells Urine Bacteria Urine Sodium 02/03/19 05:49 WBC RBC Hgb Hct MCV MCH MCHC RDW Plt Count MPV Neutrophils % Lymphocytes % Monocytes % Eosinophils % Basophils % Neutrophils # Lymphocytes # Monocytes # Eosinophils # Basophils # ESR Westergren Sodium Potassium Chloride Carbon Dioxide Anion Gap BUN Creatinine Estimated GFR (MDRD) Glucose Serum Osmolality 276 L Calcium Total Bilirubin AST ALT Alkaline Phosphatase C-Reactive Protein Serum Total Protein Albumin Globulin Albumin/Globulin Ratio Lipase TSH 3rd Generation Urine Color Urine Clarity Urine pH Ur Specific [place] Urine Protein Urine Glucose (UA) Urine Ketones Urine Blood Urine Nitrite Urine Bilirubin Urine Urobilinogen Ur Leukocyte Esterase Urine RBC Urine WBC Ur Squamous Epith Cells Urine Bacteria Urine Sodium Surgery Progress Note: A/P - Problem (1) Crohns disease Current Visit: Yes Code(s): K50.90 - CROHN'S DISEASE, UNSPECIFIED, WITHOUT COMPLICATIONS Status: Acute Assessment and Plan: s/p right colectomy complicated by leak now diverting ileostomy -on schedule for ileostomy reversal Wednesday (2) Hyponatremia Current Visit: Yes Code(s): E87.1 - HYPO-OSMOLALITY AND HYPONATREMIA Status : Acute - Plan Plan: Crohns disease -Plans for surgery Wednesday on hold pending further workup. -Why so hyponatremic, chronic renal failure (her ileostomy is not high output) -Dr. Springer covering for me till Wednesday. I will check on progress on Wednesday
[2019-02-03] MEDS ORDERED: Famotidine 20 MG TAB PO SCH (09:00)
--- NOTE | 2019-02-03 15:05 | PDOC.HOSPP ---
- Subjective Encounter Date: 02/03/19 Encounter Time: 14:45 Subjective: f/u for RUT, hyponatremia likely due to high output from ileostomy site. Feels ok overall and tolerating po intake. Receiving IVF NS and denies any confusion, N/V. - Objective Vital Signs & Weight: Vital Signs (12 hours) Temp Pulse Resp BP Pulse Ox 02/03/19 11:58 98.3 F 84 17 86/53 L 98 02/03/19 08:00 100 02/03/19 04:00 98.0 F 87 16 111/76 100 Weight Admit Weight 110 lb 7 oz Weight 110 lb 7 oz I&O: 02/02/19 02/03/19 02/04/19 06:59 06:59 06:59 Intake Total 970 480 Balance 970 480 Result Diagrams: 02/03/19 05:49 02/03/19 05:49 Additional Labs: Microbiology 02/02/19 23:20 Urine clean catch Urine Culture - Preliminary NO GROWTH AT 24 HOURS 02/02/19 19:32 Venous blood - Right Arm Blood Culture - Preliminary Specimen has been received and culture in progress. No Growth to date. 02/02/19 19:25 Venous blood - Left Arm Blood Culture - Preliminary Specimen has been received and culture in progress. No Growth to date. Laboratory Tests 02/02/19 02/02/19 02/02/19 19:27 19:27 19:27 WBC 16.7 H Hgb 13.0 ESR Westergren Sodium 117 L* BUN 48 H Creatinine 2.35 H Calcium 10.9 H TSH 3rd Generation 3.3727 02/02/19 02/02/19 19:27 23:41 WBC Hgb ESR Westergren 59 Sodium 118 L* BUN 48 H Creatinine 2.32 H Calcium 10.1 TSH 3rd Generation Hospitalist ROS - Medication Medications: Active Medications Generic Name Dose Route Start Last Admin Trade Name Freq PRN Reason Stop Dose Admin Carvedilol 6.25 mg 02/03/19 08:00 02/03/19 07:32 Coreg PO 6.25 mg BID-WM GEORGI Administration Escitalopram Oxalate 20 mg 02/03/19 09:00 02/03/19 07:31 Lexapro PO 20 mg DAILY GEORGI Administration Famotidine 20 mg 02/03/19 09:00 02/03/19 07:31 Pepcid PO 20 mg DAILY GEORGI Administration Sodium Chloride 1,000 mls @ 100 mls/hr 02/03/19 00:30 02/03/19 12:03 Normal Saline 0.9% IV Not Given .Q10H GEORGI Pantoprazole Sodium 40 mg 02/03/19 09:00 02/03/19 07:32 Protonix PO 40 mg BID GEORGI Administration - Exam General Appearance: NAD, awake alert Eye: PERRL, anicteric sclera ENT: normocephalic atraumatic, no oropharyngeal lesions Neck: supple, symmetric, no JVD, no thyromegaly, no lymphadenopathy Heart: RRR, no murmur, no gallops, no rubs, normal peripheral pulses Respiratory: CTAB, no wheezes, no rales, no ronchi, normal chest expansion Gastrointestinal: soft, non-tender, non-distended, normal bowel sounds, no palpable masses Gastrointestinal - other findings: ileostomy in place Extremities: no cyanosis, no clubbing, no edema Skin: normal turgor, no lesions Neurological: CN's grossly intact, no focal deficits, no new deficit Musculoskeletal: normal tone, normal strength Psychiatric: normal affect, normal behavior, A&O x 3 Hosp A/P (1) Hyponatremia Code(s): E87.1 - HYPO-OSMOLALITY AND HYPONATREMIA Status: Acute Plan: Likely due to high output ileostomy, continue IVF NS and monitor serial Na+ (2) RUT (acute kidney injury) Code(s): N17.9 - ACUTE KIDNEY FAILURE, UNSPECIFIED Status: Acute Plan: Due to dehydration, continue IVF's and avoid nephrotoxic meds and limit contrast exposure (3) Mild dehydration Code(s): E86.0 - DEHYDRATION Status: Acute Plan: Improved, increase po free-H2O intake (4) S/P ileostomy Code(s): Z93.2 - ILEOSTOMY STATUS Status: Chronic Plan: Stable, plan for take-down in approximately 5 days - Plan plan discussed w/ family, out of bed/ambulate, DVT proph w/SCDs Stable currently Continue IVF NS @ 100ml/h OOB/ambulate AM lab: BMP, CBC
--- NOTE | 2019-02-03 20:03 | CON ---
DATE OF CONSULTATION: 02/03/2019 REASON FOR CONSULTATION: Concern with neutrophilia in a patient with a recent intra-abdominal abscess. HISTORY OF PRESENT ILLNESS: A 53-year-old, known to us from previous visit, who has a history of Crohn disease, treated with TNF inhibitors and then development of invasive well-differentiated adenocarcinoma, which seemed to be localized and had curative surgery with unfortunate dehiscence of anastomosis, which led to the subsequent complications including intra-abdominal abscess and requirement for an ileostomy, which has been there for the past many months. The patient received protracted antimicrobial therapy. Eventually, the inflammatory process resolved. She was resumed on Humira TNF inhibitor and was being readied for takedown of the ileostomy in a few days when she was noted by Dr. Cespedes to have neutrophilia and decrease in the glomerular filtration rate. The patient did not have any symptoms of fever, no chills, and actually had been feeling relatively well compared with previous status. No headaches. No respiratory symptoms. No back pain. Voiding without difficulty. She was using her gastrostomy for nutritional maintenance, but noticed a high output off the ileostomy. PAST MEDICAL HISTORY: Crohn disease; adenocarcinoma of terminal ileum, T1 N0; intra-abdominal abscess after anastomosis dehiscence; and protracted antimicrobial therapy with eventual resolution of the inflammatory process and resumption of TNF inhibitor; high-output ileostomy with difficulty in maintaining the fluid and electrolyte balance. PAST SURGICAL HISTORY: Cholecystectomy, ileocecectomy, diverting ileostomy, and CT-guided intra-abdominal abscess aspirate. FAMILY HISTORY: Noncontributory. SOCIAL HISTORY: Former smoker. Lives with . ALLERGIES: 1. MORPHINE. 2. CIPRO. 3. HYDROCODONE. CURRENT MEDICATIONS: 1. Tylenol. 2. Coreg. 3. Lomotil. 4. Lexapro. 5. Pepcid. 6. Protonix. 7. Prevnar. PHYSICAL EXAMINATION: VITAL SIGNS: T-max 98.3, BP 86/53, pulse 84, respirations 17, O2 saturation 98. SKIN: With the ileostomy which appears normal and a gastrostomy tube with normal-appearing exit site. No lymphadenopathy. HEENT: Noncontributory. NECK: Supple. LUNGS: With symmetric clear breath sounds. HEART: S1 and S2. Regular rate. No murmurs. No S3 or S4. ABDOMEN: Soft. Mild distention. Bowel sounds are somewhat increased. No tenderness. No bladder distention. MUSCULOSKELETAL: No joint inflammatory activity. Moves extremities equally. NEUROLOGIC: Cognitive function appears to be intact. She actually appears the best I have seen her in a long time. LABORATORY DATA: White cell count 16.7 and now 12.9, hemoglobin 11.6, platelets 554, 50% neutrophils. Sodium was 117 and now 122, creatinine was 2.35 and now 2.18, calcium 10.9, AST 49, albumin 4.7. Urinalysis was normal. Two sets of blood cultures and urine culture, no growth thus far. No imaging studies obtained. ASSESSMENT: Longstanding Crohn disease with complications as listed above. The patient is still with a high-output ileostomy and gastrostomy tube feedings with difficulty in maintaining her fluid and electrolyte balance. The patient has evidence to suggest acquired chloridorrhea with hyponatremia and metabolic alkalosis. This is probably causing a volume contraction and adrenergic system enhancement leading to demargination and neutrophilia. In view of her immunosuppressive state from [facility], we need to rule out opportunistic infections, so we will order some routine studies, but I think that the solution to her problem will be a takedown of the ileostomy to resolve this issue of high output and chronic volume depletion and electrolyte imbalance. Job ID: [id number]
--- NOTE | 2019-02-03 20:41 | RAD ---
EXAM: CHEST TWO VIEWS: 02/03/18 HISTORY: History of immunosuppression with leukocytosis. COMPARISON: 08/19/18. FINDINGS: Minimal linear increased markings bilaterally without evidence for confluent pneumonia, overt edema, or other significant acute process. Stable study from 12/05/09. IMPRESSION: No significant acute process. No confluent pneumonia. POS: RRE
[2019-02-03] MEDS ORDERED: Prevnar 13-Val Conj/PF 0.5 ML SYRINGE IM ONE (21:00)
[2019-02-03] MEDS: Diphenoxylate HCl/Atropine Tablet PO SCH (22:05)
--- NOTE | 2019-02-03 22:36 | CON ---
DATE OF CONSULTATION: REQUESTING PHYSICIAN: Hospitalist group. REASON FOR CONSULTATION: Acute kidney injury as well as multiple electrolyte abnormality. IMPRESSION: 1. Acute kidney injury, this is likely hemodynamically mediated in the context of high output ileostomy compounded by poor p.o. intake. 2. Significant electrolyte abnormality in the way of hyponatremia, presented with sodium of about 118. This is also likely in the context of hypovolemic hyponatremia. PLAN: 1. Aggressive fluid resuscitation with electrolyte supplementation. 2. Further management will be dependent on the clinical course. Pay close attention to the electrolyte, especially hyponatremia. HISTORY OF PRESENT ILLNESS: History is that of a 53-year-old female patient with complicated Crohn disease, status post PEG tube and ileostomy, who experienced high-output ileostomy and presented here with multiple electrolyte derangements including hyponatremia and also noted to have elevated creatinine and with labile hemodynamics. Due to elevation in creatinine, decision has been taken to involve Renal in the management of this case. The patient denies any significant vomiting. In any case, the patient has been on rehydration with some improvement in the sodium level. The patient's creatinine still remains in the 3 range. PAST MEDICAL HISTORY: Significant for complicated Crohn disease status post ileostomy and renal carcinoma noted in the terminal ileum, wound dehiscence. MEDICATIONS: Reviewed and as documented on [employer]. FAMILY HISTORY: Not significantly related to present illness. ALLERGIES: TO CIPRO AND HYDROCODONE. SOCIAL HISTORY: Former smoker, recently discontinued. , living with her . REVIEW OF SYSTEMS: As documented in the body of the history. All other systems were reviewed and found not to be significantly related to presenting illness. PHYSICAL EXAMINATION: GENERAL: The patient was found not to be in any obvious distress, noted with the following vital signs. Vital Signs: Afebrile, temperature 98.1, pulse 98, respiratory rate of 20, O2 saturations of 98%. HEENT: Unremarkable. CARDIOVASCULAR: First and second heart sounds were heard. RESPIRATORY: Clear to auscultation. DIGESTIVE: Revealed a benign abdomen with positive bowel sounds. EXTREMITIES: No peripheral edema. SKIN: No new gross rash. LYMPHATICS: No peripheral lymphadenopathy. SUMMARY: A 53-year-old female patient who presented here with high output ileostomy, now experiencing electrolyte derangements as well as acute kidney injury. Thank you for this consultation. We will follow with you. Job ID: [id number]
[2019-02-04] MEDS: Sodium Chloride 0.9% 1,000 ML IV SCH ×4 (02:13→14:27)
[2019-02-04 06:21] LABS: #Basophils 0.1 thou/uL (0.0-0.2); #Eosinphils 0.5 thou/uL (0.0-0.7); #Lymphocytes 3.1 thou/uL (1.20-3.40); #Monocytes 1.1 thou/uL (0.11-0.59); #Neutrophils 4.3 thou/uL (1.40-6.50); %Basophils 0.8 % (0.0-1.0); %Eosinophils 5.9 % (0.0-10.0); %Lymphocytes 34.1 % (21.0-51.0); %Monocytes 11.7 % (0.0-10.0); %Neutrophils 47.5 % (42.0-75.0); Hemoglobin 10.8 g/dL (12.0-16.0); Mean Corpuscular Hemoglobin 34.2 pg (27.0-31.0); Mean Corpuscular Volume 97.9 fL (78.0-98.0); Mean Platelet Volume 6.4 fL (7.4-10.4); Platelet Count 494 thou/uL (130-400); RBC Distribution Width 12.8 % (11.5-14.5); Red Blood Cell (RBC) Count 3.16 mill/uL (4.20-5.40); White Blood Cell (WBC) Count 9.1 thou/uL (4.8-10.8)
[2019-02-04 06:53] LABS: ALT (SGPT) 34 U/L (8-55); AST (SGOT) 49 U/L (5-34); Albumin 3.6 g/dL (3.5-5.0); Alkaline Phosphatase 103 U/L (40-150); Anion Gap 14 mmol/L (10-20); BUN (Urea Nitrogen) 37 mg/dL (9.8-20.1); Bilirubin, Total 0.8 mg/dL (0.2-1.2); Calc. Creatinine Clearance 28 mL/min (70-130); Calcium 9.5 mg/dL (7.8-10.44); Carbon Dioxide 20 mmol/L (22-29); Chloride 101 mmol/L (98-107); Estimated GFR-MDRD 30; Globulin 2.8 g/dL (2.4-3.5); Glucose 87 mg/dL (70-105); Potassium 4.5 mmol/L (3.5-5.1); Protein, Total 6.4 g/dL (6.0-8.3); Sodium 130 mmol/L (136-145)
[2019-02-04] MEDS: Escitalopram Oxalate 20 mg Tablet PO SCH (08:03)
[2019-02-04] MEDS: Diphenoxylate HCl/Atropine Tablet PO SCH ×3 (08:03→19:51)
[2019-02-04] MEDS: Carvedilol 6.25 MG TAB PO SCH ×2 (08:03→16:56)
--- NOTE | 2019-02-04 11:27 | PDOC.HOSPP ---
- Subjective Encounter Date: 02/04/19 Encounter Time: 11:23 Subjective: f/u for hyponatremia, PSHx of ileostomy. pt slept well with no overnight events. no new complaints. denies pain, fever, SOB, c/p, N/V or abnormal bowel movements. pt appetite has been normal and she has been able to ambulate daily. pt voices understanding of plan for her to wait for surgery consult with Dr. Hickey on Wednesday of next week for probable take down of ileostomy. - Objective Vital Signs & Weight: Vital Signs (12 hours) Temp Pulse Resp BP Pulse Ox 02/04/19 08:00 97 02/04/19 07:10 97.8 F 88 16 99/62 97 Weight Admit Weight 50.094 kg Weight 49.895 kg I&O: 02/03/19 02/04/19 02/05/19 06:59 06:59 06:59 Intake Total 970 1720 240 Balance 970 1720 240 Result Diagrams: 02/04/19 05:50 02/04/19 05:50 Additional Labs: Microbiology 02/02/19 23:20 Urine clean catch Urine Culture - Preliminary NO GROWTH AT 24 HOURS 02/02/19 19:32 Venous blood - Right Arm Blood Culture - Preliminary Specimen has been received and culture in progress. No Growth to date. 02/02/19 19:25 Venous blood - Left Arm Blood Culture - Preliminary Specimen has been received and culture in progress. No Growth to date. Laboratory Tests 02/02/19 02/02/19 02/02/19 19:27 19:27 19:27 WBC 16.7 H Hgb 13.0 ESR Westergren Sodium 117 L* BUN 48 H Creatinine 2.35 H Calcium 10.9 H TSH 3rd Generation 3.3727 02/02/19 02/02/19 19:27 23:41 WBC Hgb ESR Westergren 59 Sodium 118 L* BUN 48 H Creatinine 2.32 H Calcium 10.1 TSH 3rd Generation Hospitalist ROS - Review of Systems Constitutional: denies: fever, chills, weakness Respiratory: denies: shortness of breath Cardiovascular: denies: chest pain, edema Gastrointestinal: denies: nausea, vomitting, abdominal pain, diarrhea, constipation Neurological: denies: weakness - Medication Medications: Active Medications Generic Name Dose Route Start Last Admin Trade Name Freq PRN Reason Stop Dose Admin Carvedilol 6.25 mg 02/03/19 08:00 02/04/19 08:03 Coreg PO 6.25 mg BID-WM GEORGI Administration Diphenoxylate HCl/Atropine 2 tab 02/03/19 21:00 02/04/19 08:03 Lomotil PO 2 tab TID GEORGI Administration Escitalopram Oxalate 20 mg 02/03/19 09:00 02/04/19 08:03 Lexapro PO 20 mg DAILY GEORGI Administration Sodium Chloride 1,000 mls @ 150 mls/hr 02/03/19 17:57 02/04/19 08:02 Normal Saline 0.9% IV 1,000 mls .[id number] GEORGI Administration Pantoprazole Sodium 40 mg 02/03/19 09:00 02/04/19 08:04 Protonix PO 40 mg BID GEORGI Administration - Exam General Appearance: NAD, awake alert Eye: anicteric sclera ENT: normocephalic atraumatic, no oropharyngeal lesions, moist mucosa Neck: supple, symmetric, no JVD, no thyromegaly, no lymphadenopathy Heart: RRR, no murmur, no gallops, no rubs, normal peripheral pulses Respiratory: CTAB, no wheezes, no rales, no ronchi, normal chest expansion Gastrointestinal: soft, non-tender, non-distended, normal bowel sounds Gastrointestinal - other findings: iliostomy site without erythema, discharge, or any sign of infection Extremities: no cyanosis, no clubbing, no edema Skin: normal turgor Neurological: CN's grossly intact, no focal deficits, no new deficit Musculoskeletal: normal tone, normal strength, no muscle wasting Psychiatric: normal affect, normal behavior, A&O x 3 Hosp A/P (1) Hyponatremia Code(s): E87.1 - HYPO-OSMOLALITY AND HYPONATREMIA Status: Resolved Plan: continue IV NS fluids. Na+ improving. likely due to high-output ileostomy (2) RUT (acute kidney injury) Code(s): N17.9 - ACUTE KIDNEY FAILURE, UNSPECIFIED Status: Acute Plan: due to dehydration. continue IV NS fluids and avoid nephrotoxic drugs and IV contrast. Overall improving (3) Mild dehydration Code(s): E86.0 - DEHYDRATION Status: Acute Plan: improved with BUN and Cr trending downward. continue PO free water intake. (4) S/P ileostomy Code(s): Z93.2 - ILEOSTOMY STATUS Status: Chronic Plan: stable. plan to take down in x3 days (02/07/19) - Plan plan discussed w/ family, administrator social welfare, out of bed/ambulate, DVT proph w/SCDs Stable currently Decrease IVF's 100ml/h Continue Protonix 40mg BID OOB/ambulate Plan for ileostomy take down 02/07/19 AM lab: BMP
--- NOTE | 2019-02-04 17:12 | PRG ---
DATE OF SERVICE: 02/04/2019 SUBJECTIVE: The patient is seen and examined. Seems to be doing much better. Noted with the following vital signs. OBJECTIVE: VITAL SIGNS: Afebrile, temperature 97.8; pulse 88; respiratory rate of 16; O2 saturation of 97%; and blood pressure 99/62. HEENT: Unremarkable. CARDIOVASCULAR SYSTEM: First and second heart sounds were heard. RESPIRATORY SYSTEM: Clear to auscultation. DIGESTIVE SYSTEM: Revealed a benign abdomen. EXTREMITIES: No peripheral edema. SKIN: No new gross rash. LYMPHATIC: No peripheral lymphadenopathy. LABORATORY DATA: Laboratory investigation showed a sodium that has gone up to 130 and creatinine down to 1.76. IMPRESSION: 1. Hyponatremia, improving with IV fluids. 2. Acute on chronic kidney disease, much improved. PLAN: 1. We will continue current renal supportive measures. 2. Further management to be dependent on the clinical course. Job ID: [id number]
--- NOTE | 2019-02-04 18:52 | PRG ---
DATE OF SERVICE: 02/04/2019 REASON FOR CONSULTATION: Crohn disease, acute kidney injury. SUBJECTIVE: The patient did well overnight with no acute events or problems. She does state that she continues to have a fair amount of output through her ileostomy, although does seem to be slowing down a little. Currently, she denies any nausea, vomiting, fevers, chills, GI bleeding, dysphagia, or odynophagia. OBJECTIVE: VITAL SIGNS: Temperature 97.8, pulse 88, blood pressure of 99/62, respiratory rate 16, saturating 97% on room air. GENERAL: The patient was lying in bed, in no acute distress. Alert and oriented x4. CARDIOVASCULAR: Regular rate and rhythm with no discernible murmurs, gallops, or rubs. RESPIRATORY: Clear to auscultation bilaterally. ABDOMEN: Normoactive bowel sounds. Soft, nondistended, mild tenderness to palpation around her PEG tube site. No tenderness around her ileostomy site. EXTREMITIES: No cyanosis, clubbing, or edema. LABORATORY DATA: CBC with a white blood cell count of 9.1, hemoglobin 10.8, hematocrit 30.9, platelets 494. Chemistry with a sodium of 130, potassium 4.5, chloride 101, CO2 of 20, BUN 37, creatinine 1.76, glucose 87. IMAGING DATA: No current GI imaging is available for review. ASSESSMENT AND PLAN: The patient is a 53-year-old female with past medical history of adenocarcinoma of the terminal ileum, status post resection, complicated by abdominal abscess and wound dehiscence, and Crohn disease, presenting with acute kidney injury related to high output ileostomy. High output ileostomy: The patient is presenting with a history of Crohn disease with a stricture developing near the ileocecal junction, underwent ileocecectomy in June 2018. The surgery was complicated by wound dehiscence and abdominal abscess formation and also with the detection of possible malignant cells within the pathology report. Her course was further complicated by fungal bacteremia related to an infected PICC line and malnutrition, for which the patient had a PEG tube placed in July 2018. The patient is currently receiving tube feeds through her gastrostomy tube, but has been having increased ileostomy output and had labs indicative of acute kidney injury prior to admission and thereby prompted her admission. During the course of this hospitalization, she has been aggressively resuscitated with IV fluids in addition to administration of antimotility agents in an attempt to slow down her ostomy output. With that, she has been having slowly downtrending BUN and creatinine, indicating response to treatment. RECOMMENDATIONS: 1. We would continue with IV fluid support as you are doing and careful monitoring of the patient's renal function. 2. We would continue antimotility agents with diphenoxylate-atropine. 3. The patient is to have surgical consultation with Dr. Hickey coming this next week for ileostomy takedown. 4. We would hold any administration of Humira during this hospitalization, given the possibility of ileostomy takedown and delayed wound healing with administration, instead we would wait 2 weeks after her surgery and then restart. We will continue to follow. Please call with any questions. Job ID: [id number]
[2019-02-05] MEDS: Sodium Chloride 0.9% 1,000 ML IV SCH ×3 (01:10→22:57)
[2019-02-05 05:46] LABS: Anion Gap 9 mmol/L (10-20); BUN (Urea Nitrogen) 22 mg/dL (9.8-20.1); Calc. Creatinine Clearance 35 mL/min (70-130); Calcium 8.7 mg/dL (7.8-10.44); Carbon Dioxide 19 mmol/L (22-29); Chloride 108 mmol/L (98-107); Estimated GFR-MDRD 37; Glucose 81 mg/dL (70-105); Potassium 4.2 mmol/L (3.5-5.1); Sodium 132 mmol/L (136-145)
[2019-02-05] MEDS: Carvedilol 6.25 MG TAB PO SCH ×2 (08:30→16:03)
[2019-02-05] MEDS: Escitalopram Oxalate 20 mg Tablet PO SCH (08:30)
[2019-02-05] MEDS: Diphenoxylate HCl/Atropine Tablet PO SCH ×3 (08:30→19:55)
--- NOTE | 2019-02-05 15:08 | PDOC.HOSPP ---
- Subjective Encounter Date: 02/05/19 Encounter Time: 14:50 Subjective: f/u for hyponatremia and RUT with ileostomy. Feels better overall and appetite improved. - Objective Vital Signs & Weight: Vital Signs (12 hours) Temp Pulse Resp BP BP Pulse Ox 02/05/19 08:30 105/69 02/05/19 08:00 98.0 F 92 18 105/69 95 Weight Admit Weight 110 lb 7 oz Weight 110 lb 0.171 oz I&O: 02/04/19 02/05/19 02/06/19 06:59 06:59 06:59 Intake Total 1720 2465 480 Output Total 350 Balance 1720 2115 480 Result Diagrams: 02/04/19 05:50 02/05/19 05:05 Additional Labs: Microbiology 02/02/19 23:20 Urine clean catch Urine Culture - Preliminary NO GROWTH AT 24 HOURS 02/02/19 19:32 Venous blood - Right Arm Blood Culture - Preliminary Specimen has been received and culture in progress. No Growth to date. 02/02/19 19:25 Venous blood - Left Arm Blood Culture - Preliminary Specimen has been received and culture in progress. No Growth to date. Laboratory Tests 02/02/19 02/02/19 02/02/19 19:27 19:27 19:27 WBC 16.7 H Hgb 13.0 ESR Westergren Sodium 117 L* BUN 48 H Creatinine 2.35 H Calcium 10.9 H TSH 3rd Generation 3.3727 02/02/19 02/02/19 19:27 23:41 WBC Hgb ESR Westergren 59 Sodium 118 L* BUN 48 H Creatinine 2.32 H Calcium 10.1 TSH 3rd Generation Hospitalist ROS - Medication Medications: Active Medications Generic Name Dose Route Start Last Admin Trade Name Freq PRN Reason Stop Dose Admin Carvedilol 6.25 mg 02/03/19 08:00 02/05/19 08:30 Coreg PO 6.25 mg BID-WM GEORGI Administration Diphenoxylate HCl/Atropine 2 tab 02/03/19 21:00 02/05/19 08:30 Lomotil PO 2 tab TID GEORGI Administration Escitalopram Oxalate 20 mg 02/03/19 09:00 02/05/19 08:30 Lexapro PO 20 mg DAILY GEORGI Administration Sodium Chloride 1,000 mls @ 100 mls/hr 02/04/19 14:03 02/05/19 12:12 Normal Saline 0.9% IV 1,000 mls .Q10H GEORGI Administration Pantoprazole Sodium 40 mg 02/03/19 09:00 02/05/19 08:29 Protonix PO 40 mg BID GEORGI Administration - Exam General Appearance: NAD, awake alert Eye: PERRL, anicteric sclera ENT: normocephalic atraumatic, no oropharyngeal lesions Neck: supple, symmetric, no JVD, no thyromegaly, no lymphadenopathy Heart: RRR, no murmur, no gallops, no rubs, normal peripheral pulses Respiratory: CTAB, no wheezes, no rales, no ronchi, normal chest expansion Gastrointestinal: soft, non-tender, non-distended, normal bowel sounds, no palpable masses Extremities: no cyanosis, no clubbing, no edema Skin: normal turgor, no lesions Neurological: CN's grossly intact, no focal deficits, no new deficit Musculoskeletal: normal tone, normal strength Psychiatric: normal affect, normal behavior, A&O x 3 Hosp A/P (1) Hyponatremia Code(s): E87.1 - HYPO-OSMOLALITY AND HYPONATREMIA Status: Acute Plan: Improving with IVF's, continue serial monitoring, regular diet (2) RUT (acute kidney injury) Code(s): N17.9 - ACUTE KIDNEY FAILURE, UNSPECIFIED Status: Acute Plan: Improved overall, continue IVF's, avoid nephrotoxic meds and limit contrast exposure (3) Mild dehydration Code(s): E86.0 - DEHYDRATION Status: Acute Plan: Resolved (4) S/P ileostomy Code(s): Z93.2 - ILEOSTOMY STATUS Status: Chronic Plan: Plan for take down in 48h - Plan plan discussed w/ family, out of bed/ambulate, DVT proph w/SCDs Stable currently Decrease IVF's 100ml/h Continue Protonix 40mg BID OOB/ambulate Plan for ileostomy take down 02/07/19 AM lab: BMP
--- NOTE | 2019-02-05 17:45 | PRG ---
DATE OF SERVICE: 02/05/2019 SUBJECTIVE: The patient is seen and examined, seems to be doing much better, noted with the following vital signs. OBJECTIVE: VITAL SIGNS: Afebrile, temperature 98, pulse 92, respiratory rate of 18, and O2 saturation 95% with blood pressure 105/69. HEENT: Unremarkable. CARDIOVASCULAR SYSTEM: First and second heart sounds were heard. RESPIRATORY SYSTEM: Clear to auscultation. DIGESTIVE SYSTEM: Revealed a benign abdomen with positive bowel sounds. EXTREMITIES: No peripheral edema. SKIN: No new gross rash. LYMPHATICS: No peripheral lymphadenopathy. IMPRESSION: Acute on chronic kidney disease, which is much improved. PLAN: We will continue current renal supportive measures, but we will begin to deescalate the IV fluids more likely shift over to bicarb infusion to address the current metabolic acidosis, which is likely due to GI loss of bicarbonates. Job ID: [id number]
[2019-02-05] MEDS ORDERED: Citrucel 500 MG TAB PO SCH (21:30)
--- NOTE | 2019-02-05 21:34 | PRG ---
DATE OF SERVICE: 02/05/2019 REASON FOR CONSULTATION: Crohn disease, acute kidney injury. SUBJECTIVE: The patient did well overnight with no acute events or problems, but does continue to have a fair output through her ileostomy. Currently, she denies any nausea, vomiting, fevers, chills, GI bleeding, dysphagia, or odynophagia. OBJECTIVE: VITAL SIGNS: Temperature 98, blood pressure 105/69, respiratory rate 18, saturating 95% on room air. GENERAL: The patient is lying in bed, in no acute distress. Alert and oriented x4. CARDIOVASCULAR: Regular rate and rhythm. RESPIRATORY: Clear to auscultation bilaterally. ABDOMEN: Normoactive bowel sounds. Soft, nondistended, mild tenderness to palpation around her PEG tube site, but no evidence of skin breakdown or purulence. EXTREMITIES: No cyanosis, clubbing, or edema. LABORATORY DATA: Chemistry with a sodium of 132, potassium 4.2, chloride 108, CO2 of 19, BUN 22, creatinine 1.45, glucose 81. IMAGING DATA: No current GI imaging is available for review. ASSESSMENT AND PLAN: The patient is a 53-year-old female with past medical history of adenocarcinoma of the terminal ileum status post resection complicated by abdominal abscess and wound dehiscence as well as a prior diagnosis of Crohn disease, presenting with acute kidney injury related to high output ileostomy. High output ileostomy. The patient has had a fairly complicated surgical history related to her diagnosis of Crohn disease and adenocarcinoma of the terminal ileum with the protestant of increased output through her ileostomy. She subsequently had acute kidney injury evidenced by elevated BUN and creatinine as well as derangement in her electrolytes. During the course of this hospitalization, she has been aggressively resuscitated with IV fluids in addition to administration of antimotility agents in attempt to slow down her ostomy output, and with these modalities, she has been responding well to treatment. RECOMMENDATIONS: 1. We will continue with IV fluid support with current dosing. 2. Continue with antimotility agents with diphenoxylate and atropine. 3. We will start the patient on Citrucel 500 mg daily as part of a stool bulking maneuver in an attempt to slow down her output. 4. The patient is due for ileostomy takedown via Dr. Hickey on Wednesday. We will continue to follow. Please call with any questions. Job ID: [id number]
[2019-02-06 06:57] LABS: Anion Gap 11 mmol/L (10-20); BUN (Urea Nitrogen) 13 mg/dL (9.8-20.1); Calc. Creatinine Clearance 42 mL/min (70-130); Calcium 8.7 mg/dL (7.8-10.44); Carbon Dioxide 16 mmol/L (22-29); Chloride 111 mmol/L (98-107); Estimated GFR-MDRD 48; Glucose 75 mg/dL (70-105); Potassium 4.2 mmol/L (3.5-5.1); Sodium 134 mmol/L (136-145)
[2019-02-06] MEDS: Carvedilol 6.25 MG TAB PO SCH ×2 (08:28→16:58)
[2019-02-06] MEDS: Diphenoxylate HCl/Atropine Tablet PO SCH (08:28)
[2019-02-06] MEDS: Citrucel 500 MG TAB PO SCH (08:28)
[2019-02-06] MEDS: Escitalopram Oxalate 20 mg Tablet PO SCH (08:28)
[2019-02-06] MEDS: Sodium Chloride 0.9% 1,000 ML IV SCH ×3 (08:29→23:20)
[2019-02-06] MEDS ORDERED: Opium Tincture 10% (1ml Charge) PO PRN (08:36)
[2019-02-06] MEDS ORDERED: Diphenoxylate HCl/Atropine Tablet PO SCH (08:45)
--- NOTE | 2019-02-06 13:18 | PDOC.HOSPP ---
- Subjective Encounter Date: 02/06/19 Encounter Time: 13:15 Subjective: f/u for hyponatremia, RUT and Crohn's disease with ileostomy. Feels fine overall. - Objective Vital Signs & Weight: Vital Signs (12 hours) Temp Pulse Resp BP BP Pulse Ox 02/06/19 08:28 119/76 02/06/19 08:00 96 02/06/19 07:19 98.3 F 96 16 119/76 96 Weight Admit Weight 110 lb 7 oz Weight 110 lb 0.171 oz I&O: 02/05/19 02/06/19 02/07/19 06:59 06:59 06:59 Intake Total 2465 2320 Output Total 350 350 Balance 5 1970 Result Diagrams: 02/04/19 05:50 02/06/19 05:45 Additional Labs: Microbiology 02/02/19 23:20 Urine clean catch Urine Culture - Preliminary NO GROWTH AT 24 HOURS 02/02/19 19:32 Venous blood - Right Arm Blood Culture - Preliminary Specimen has been received and culture in progress. No Growth to date. 02/02/19 19:25 Venous blood - Left Arm Blood Culture - Preliminary Specimen has been received and culture in progress. No Growth to date. Laboratory Tests 02/02/19 02/02/19 02/02/19 19:27 19:27 19:27 WBC 16.7 H Hgb 13.0 ESR Westergren Sodium 117 L* BUN 48 H Creatinine 2.35 H Calcium 10.9 H TSH 3rd Generation 3.3727 02/02/19 02/02/19 19:27 23:41 WBC Hgb ESR Westergren 59 Sodium 118 L* BUN 48 H Creatinine 2.32 H Calcium 10.1 TSH 3rd Generation Hospitalist ROS - Medication Medications: Active Medications Generic Name Dose Route Start Last Admin Trade Name Freq PRN Reason Stop Dose Admin Carvedilol 6.25 mg 02/03/19 08:00 02/06/19 08:28 Coreg PO 6.25 mg BID-WM GEORGI Administration Escitalopram Oxalate 20 mg 02/03/19 09:00 02/06/19 08:28 Lexapro PO 20 mg DAILY GEORGI Administration Sodium Chloride 1,000 mls @ 100 mls/hr 02/04/19 14:03 02/06/19 08:29 Normal Saline 0.9% IV 1,000 mls .Q10H GEORGI Administration Methylcellulose 500 mg 02/06/19 09:00 02/06/19 08:28 Citrucel PO 500 mg DAILY GEORGI Administration Pantoprazole Sodium 40 mg 02/03/19 09:00 02/06/19 08:28 Protonix PO 40 mg BID GEORGI Administration - Exam General Appearance: NAD, awake alert Eye: PERRL, anicteric sclera ENT: normocephalic atraumatic, no oropharyngeal lesions Neck: supple, symmetric, no JVD, no thyromegaly Heart: RRR, no murmur, no gallops, no rubs, normal peripheral pulses Respiratory: CTAB, no wheezes, no rales, no ronchi, normal chest expansion Gastrointestinal: soft, non-tender, non-distended, normal bowel sounds, no palpable masses Gastrointestinal - other findings: + ileostomy Extremities: no cyanosis, no clubbing, no edema Skin: normal turgor, no lesions, no rashes Neurological: CN's grossly intact, no focal deficits, no new deficit Musculoskeletal: normal tone, normal strength Psychiatric: normal affect, normal behavior, A&O x 3 Hosp A/P (1) Hyponatremia Code(s): E87.1 - HYPO-OSMOLALITY AND HYPONATREMIA Status: Acute Plan: Improving, continue IVF's, serial Na+ monitoring (2) RUT (acute kidney injury) Code(s): N17.9 - ACUTE KIDNEY FAILURE, UNSPECIFIED Status: Acute Plan: Improving with IVF's, continue serial creatinine, avoid nephrotoxic meds and limit contrast exposure (3) Mild dehydration Code(s): E86.0 - DEHYDRATION Status: Acute Plan: Resolving (4) S/P ileostomy Code(s): Z93.2 - ILEOSTOMY STATUS Status: Chronic Plan: Plan for take down on 02/07/19 - Plan plan discussed w/ family, out of bed/ambulate, DVT proph w/SCDs Stable currently Decrease IVF's 100ml/h Continue Protonix 40mg BID OOB/ambulate Plan for ileostomy take down 02/07/19 AM lab: BMP
--- NOTE | 2019-02-06 14:44 | PRG ---
DATE OF SERVICE: 02/03/2019 SUBJECTIVE: Ms. Kwan was recently seen in our office last week for routine followup with regard to her Crohn's. She was having abdominal pain. No bleeding. She reported that she was having good urine output and no issues with her ostomy. She had no fever or chills either. She had recently undergone an ileoscopy, which showed no evidence of active Crohn's, and she was scheduled for takedown of her ostomy next week with Dr. Hickey. However, in the office on the , her white count was 15.2, her platelets were 640. Her sodium was 121, potassium was 5.2, calcium was 10.6, AST and ALT were 55 and 44, alkaline phosphatase was 147. CRP was 0.2. Sedimentation rate is 50, and her BUN and creatinine were 52 and 2.65. We called her, she was feeling well yesterday, increased her fluid intake. We repeated her labs earlier this week and still she was hyponatremic with elevated BUN and creatinine as her white count had been up on and off back in September and October, this is not overtly alarming. Additionally, however, the hyponatremia was new and renal function was much worse than baseline, it was last checked in October and had been 43 and 1.37, her sodium had been 131. We advised her to come to the hospital for hydration and further evaluation. Earlier this year, she had a prolonged course of hospitalization related to primary lung disease, surgery for adenocarcinoma of the terminal ileum, which was completely excised, stage I and peristomal abscess which had to be treated. She did recover from that more recently and has been on Humira for her Remicade and she stopped smoking as she has been back to work. PAST MEDICAL HISTORY: 1. Crohn disease, adenocarcinoma of the terminal ileum with T1 N0, resolved. 2. No evidence for active Crohn disease on most recent ileoscopy. 3. Status post I and D of peristomal abscess after ileostomy was created after she had primary anastomosis breakdown after her colon cancer resection. 4. Reflux. 5. Prior history of Enterococcus infection back in August, Tova infection of PICC line in July. PAST SURGICAL HISTORY: Ileal resection, drainage of peristomal abscess, cholecystectomy. ALLERGIES: CIPRO WITH IRRITATION IN HER MOUTH. FAMILY HISTORY: Negative for colon cancer, Crohn disease. SOCIAL HISTORY: No alcohol. She used to smoke, she stopped. Lives with her . MEDICATIONS: At home, 1. Vitamin B6. 2. p.o. daily. 3. Protonix 40 mg b.i.d. 4. Zofran p.r.n. 5. Nutrition drinks two cans per day. 6. Lexapro. 7. Lomotil. 8. Coreg. 9. Calcium. 10. Humira 40 subcu weekly. Medications here, 1. Coreg. 2. Lomotil. 3. Lopressor. 4. Pepcid. 5. Protonix. 6. Normal saline 100. PHYSICAL EXAMINATION: VITAL SIGNS: Temperature 98, pulse 75, blood pressure 107/73. She has been afebrile since admission. HEENT: Oropharynx, no lesions. NECK: Supple. LUNGS: Clear. HEART: Regular rate and rhythm without clicks or murmurs. ABDOMEN: Soft, nontender with no palpable hepatomegaly. EXTREMITIES: No clubbing, cyanosis, or edema. Stoma site clean and dry. LABORATORY DATA: Sodium is 122, up from 117 on admission; potassium 4.7; creatinine is 2.18, down from 2.35 on admission. BUN is 47, down from 48. PAST MEDICAL HISTORY: Previous positive QuantiFERON TB. She has been treated prophylactically prior to starting TNF medications. ASSESSMENT: 1. Hyponatremia of unclear etiology, was possibly hypovolemic, hyponatremia from high ostomy output, although her renal function was better earlier in the year when she was out of the hospital, at which time, I suspect that she would have more risk of dehydration with ostomy output. She should have a dilatation by now. She does have some improvement with IV fluids. Her creatinine is slightly better. 2. Hyperkalemia. She was on oral potassium replacement at home. She is not getting this now. 3. History of Crohn's with evidence of active Crohn's by labs or endoscopy recently. 4. History of ileal carcinoma T1, removed, now adjuvant therapy. 5. History of peristomal abscess, status post drainage with ostomy creation. There are plans to take this down on Wednesday. RECOMMENDATIONS: 1. I would increase her IV fluids to 150 mL an hour, place her on some Lomotil. Await for culture reports to make sure there are no signs of infection. Dr. Martinez has seen her today. 2. Hyponatremia, does not improve. She needs further workup for this by Nephrology. 3. If it is improving, I think she can go and have her surgery on Wednesday as scheduled. Ideally, we would like to get a CAT scan of the abdomen and pelvis before this in light of leukocytosis, bandemia. It is really just going to depend on whether or not her creatinine can come down as first. Job ID: [id number]
[2019-02-06 14:49] VITALS: BMI 21.4
--- NOTE | 2019-02-06 20:30 | PRG ---
DATE OF SERVICE: 02/06/2019 SUBJECTIVE: The patient was seen and examined, noted with the following vital signs. OBJECTIVE: VITAL SIGNS: Afebrile, temperature 98.3, pulse 96, respiratory rate of 16, O2 saturation of 96%. HEENT: Unremarkable. CARDIOVASCULAR SYSTEM: First and second heart sounds were heard. RESPIRATORY SYSTEM: Clear to auscultation. DIGESTIVE SYSTEM: Revealed a benign abdomen. EXTREMITIES: No peripheral edema. SKIN: No new gross rash. LYMPHATICS: No peripheral lymphadenopathy. IMPRESSION: [id number] kidney disease, much improved. PLAN: 1. Continue with . 2. Further management to be dependent on the clinical course. Job ID: [id number]
[2019-02-07 06:16] LABS: Anion Gap 8 mmol/L (10-20); BUN (Urea Nitrogen) 11 mg/dL (9.8-20.1); Calc. Creatinine Clearance 39 mL/min (70-130); Calcium 8.5 mg/dL (7.8-10.44); Carbon Dioxide 20 mmol/L (22-29); Chloride 111 mmol/L (98-107); Estimated GFR-MDRD 43; Glucose 76 mg/dL (70-105); Potassium 3.8 mmol/L (3.5-5.1); Sodium 135 mmol/L (136-145)
[2019-02-07] MEDS: Carvedilol 6.25 MG TAB PO SCH ×2 (06:17→16:37)
[2019-02-07] MEDS: Escitalopram Oxalate 20 mg Tablet PO SCH (07:49)
[2019-02-07] MEDS: Citrucel 500 MG TAB PO SCH (07:49)
--- NOTE | 2019-02-07 07:50 | PRG ---
DATE OF SERVICE: 02/06/2019 REASON FOR CONSULTATION: Crohn disease, acute kidney injury. SUBJECTIVE: The patient did well overnight with no acute events or problems, but continues to have increased output through her ostomy despite scheduled administration of Lomotil. She has, however, been able to tolerate IV fluids thus far and otherwise feels well. Currently, she denies any nausea, vomiting, fevers, chills, GI bleeding, dysphagia, odynophagia, or abdominal pain. OBJECTIVE: VITAL SIGNS: Temperature 98.3, pulse 96, blood pressure 129/73, respiratory rate 16, saturating 96% on room air. GENERAL: The patient is lying in bed, in no acute distress. Alert and oriented x4 CARDIOVASCULAR: Regular rate and rhythm. RESPIRATORY: Clear to auscultation bilaterally. ABDOMEN: Normoactive bowel sounds, soft, nondistended. No tenderness to palpation except around the immediate PEG tube site. EXTREMITIES: No cyanosis, clubbing, or edema. LABORATORY DATA: Chemistry with a sodium of 134, potassium 4.2, chloride 111, CO2 16, BUN 13, creatinine 1.18, glucose 75. IMAGING DATA: No current GI imaging is available for review. ASSESSMENT AND PLAN: 1. The patient is a 53-year-old female with past medical history of adenocarcinoma of the terminal ileum, status post resection complicated by abdominal abscess and wound dehiscence as well as a prior diagnosis of Crohn disease, presenting with acute kidney injury related to high-output ileostomy. 2. High-output ileostomy. During the course of this hospitalization, the patient has continued to have fairly high output through her ileostomy resulting in acute kidney injury and electrolyte dysfunction. Through aggressive intravenous fluid administration and replacement of her electrolytes she has done well with her current kidney function pattern near baseline; however, she does continue to have a decrease in her bicarb indicating acidosis which could be related to her increased gastrointestinal losses. Given that she has been administered Lomotil during this hospitalization and still having high output ileostomy, I would consider this more of a treatment failure. I would switch the patient to a different medication. RECOMMENDATIONS: 1. We will transfer the patient from Lomotil to tincture of opium in an attempt to decrease ostomy output. 2. Continue Citrucel 500 mg daily as part of a stool bulking maneuver in an attempt to slow down her output. 3. Agree with administration of bicarbonate in her IV fluids as part of her ongoing acidosis. 4. The patient is scheduled for ileostomy takedown tomorrow via Dr. Hickey. 5. We will continue to follow. Please call with any questions. Job ID: [id number]
[2019-02-07] MEDS ORDERED: Midazolam HCl 2 mg/2 ml Vial ONE (07:52)
[2019-02-07] MEDS ORDERED: Fentanyl 100 MCG/2 ML VIAL ONE ×6 (07:52→11:10)
[2019-02-07] MEDS ORDERED: HYDROmorphone 2 MG/ML VIAL ONE (08:32)
[2019-02-07] MEDS ORDERED: cefOXitin 2 GM VIAL ONE (08:41)
[2019-02-07] MEDS ORDERED: Sodium Chloride 0.9% 100 ML ONE (08:41)
[2019-02-07] MEDS ORDERED: Ondansetron HCl/PF 4 MG/2 ML Vial IVP PRN (09:14)
[2019-02-07] MEDS ORDERED: Promethazine HCl 25 MG/ML VIAL SLOW IVP PRN (09:14)
[2019-02-07] MEDS ORDERED: Promethazine HCl 25 MG/ML VIAL IM PRN ×2 (09:14→11:24)
[2019-02-07] MEDS ORDERED: Dexamethasone 4 mg/ml Vial ONE (09:16)
[2019-02-07] MEDS ORDERED: hydrALAZINE 20 MG/ML VIAL SLOW IVP PRN (11:24)
[2019-02-07] MEDS: Acetaminophen 1,000 MG in Premix Bag 1 BAG IVPB SCH ×2 (12:40→18:35)
[2019-02-07] MEDS: Fentanyl 100 MCG/2 ML VIAL SLOW IVP PRN ×2 (12:41→15:22)
[2019-02-07] MEDS: Sodium Chloride 0.9% 1,000 ML IV SCH (12:52)
--- NOTE | 2019-02-07 14:44 | PDOC.HOSPP ---
- Subjective Encounter Date: 02/07/19 Encounter Time: 14:35 Subjective: f/u for hyponatremia, RUT and Chron's dz with ileostomy take down today. Some abd pain on Fentanyl/Ofirmev. - Objective Vital Signs & Weight: Vital Signs (12 hours) Temp Pulse Resp BP BP Pulse Ox 02/07/19 08:00 92 L 02/07/19 07:23 98.4 F 104 H 18 128/79 92 L 02/07/19 06:17 124/75 Weight Admit Weight 110 lb 7 oz Weight 110 lb 0.171 oz I&O: 02/06/19 02/07/19 02/08/19 06:59 06:59 06:59 Intake Total 2320 3435 Output Total 350 303 Balance 1970 3132 Result Diagrams: 02/04/19 05:50 02/07/19 05:12 Additional Labs: Microbiology 02/02/19 23:20 Urine clean catch Urine Culture - Preliminary NO GROWTH AT 24 HOURS 02/02/19 19:32 Venous blood - Right Arm Blood Culture - Preliminary Specimen has been received and culture in progress. No Growth to date. 02/02/19 19:25 Venous blood - Left Arm Blood Culture - Preliminary Specimen has been received and culture in progress. No Growth to date. Laboratory Tests 02/02/19 02/02/19 02/02/19 19:27 19:27 19:27 WBC 16.7 H Hgb 13.0 ESR Westergren Sodium 117 L* Carbon Dioxide BUN 48 H Creatinine 2.35 H Calcium 10.9 H TSH 3rd Generation 3.3727 02/02/19 02/02/19 02/06/19 19:27 23:41 05:45 WBC Hgb ESR Westergren 59 Sodium 118 L* Carbon Dioxide 16 L BUN 48 H Creatinine 2.32 H 1.18 H Calcium 10.1 TSH 3rd Generation Hospitalist ROS - Medication Medications: Active Medications Generic Name Dose Route Start Last Admin Trade Name Freq PRN Reason Stop Dose Admin Carvedilol 6.25 mg 02/03/19 08:00 02/07/19 06:17 Coreg PO 6.25 mg BID-WM GEORGI Administration Fentanyl 50 mcg 02/07/19 11:24 02/07/19 12:41 Sublimaze SLOW IVP 50 mcg Q2H PRN Administration Moderate to Severe Pain (6-10) Acetaminophen 1,000 mg/ Device 100 mls @ 400 mls/hr 02/07/19 12:00 02/07/19 12:40 IVPB 02/08/19 06:14 100 mls Q6HR GEORGI Administration Sodium Chloride 1,000 mls @ 70 mls/hr 02/07/19 11:24 02/07/19 12:52 Normal Saline 0.9% IV 1,000 mls .[id number] GEORGI Administration - Exam General Appearance: awake alert, ill appearing General - other findings: Pale Eye: PERRL, anicteric sclera ENT: normocephalic atraumatic, no oropharyngeal lesions Neck: supple, symmetric, no JVD, no thyromegaly, no lymphadenopathy Heart: RRR, no murmur, no gallops, no rubs, normal peripheral pulses Respiratory: CTAB, no wheezes, no rales, no ronchi, normal chest expansion Gastrointestinal: non-distended, normal bowel sounds, no palpable masses, tender to palpation Extremities: no cyanosis, no clubbing Skin: normal turgor, no lesions Neurological: CN's grossly intact, no focal deficits, no new deficit Musculoskeletal: normal tone, normal strength Psychiatric: normal affect, A&O x 3 Hosp A/P (1) Hyponatremia Code(s): E87.1 - HYPO-OSMOLALITY AND HYPONATREMIA Status: Acute Plan: Improved, continue low-volume IVF, serial monitoring (2) RUT (acute kidney injury) Code(s): N17.9 - ACUTE KIDNEY FAILURE, UNSPECIFIED Status: Acute Plan: Improved, avoid nephrotoxic meds and limit contrast exposure (3) Mild dehydration Code(s): E86.0 - DEHYDRATION Status: Acute Plan: Resolved (4) S/P ileostomy Code(s): Z93.2 - ILEOSTOMY STATUS Status: Chronic Plan: Take down today per Gen Surgery, supportive mgmt, Pain control with Fentanyl/ Toradol - Plan plan discussed w/ family, social media community manager, respiratory therapy, incentive spirometry, out of bed/ambulate, DVT proph w/SCDs Stable currently Decrease IVF's 70ml/h Continue Protonix 40mg BID OOB/ambulate Pain control with Fentanyl/Toradol AM lab: BMP, CBC
[2019-02-07] MEDS: cefOXitin Sodium/Dextrose,Iso 1 GM in Premix Bag 1 BAG IVPB SCH (16:36)
[2019-02-07] MEDS ORDERED: Bupivacaine HCl 0.5%/Epinephrine 1:200,000/PF 30 ml Vial ONE (17:27)
[2019-02-07] MEDS ORDERED: Dexamethasone 20 MG/5 ML VIAL ONE (17:56)
[2019-02-07] MEDS ORDERED: PROPOFOL 200 MG/20 ML VIAL ONE (17:56)
[2019-02-07] MEDS ORDERED: Lidocaine 1% PF 5 ML VIAL ONE (17:56)
[2019-02-07] MEDS ORDERED: Ondansetron PF 4 MG/2 ML Vial ONE (17:56)
[2019-02-07] MEDS ORDERED: Rocuronium Bromide 10 MG/ML (10ML VIAL) ONE (17:56)
[2019-02-07] MEDS ORDERED: Glycopyrrolate 0.2 MG/ML 5 ML SYRINGE ONE (17:56)
[2019-02-07] MEDS: Ketorolac Tromethamine 30 MG/ML VIAL IVP SCH (18:10)
[2019-02-07] MEDS: Enoxaparin Sodium 40 MG/0.4 ML SYRINGE SC SCH (20:30)
[2019-02-08] MEDS: Ketorolac Tromethamine 30 MG/ML VIAL IVP SCH ×3 (00:03→12:00)
[2019-02-08] MEDS: Acetaminophen 1,000 MG in Premix Bag 1 BAG IVPB SCH ×2 (00:06→05:23)
[2019-02-08] MEDS: cefOXitin Sodium/Dextrose,Iso 1 GM in Premix Bag 1 BAG IVPB SCH (00:11)
[2019-02-08] MEDS: Sodium Chloride 0.9% 1,000 ML IV SCH ×3 (05:25→16:00)
--- NOTE | 2019-02-08 05:33 | PDOC.GSPN ---
Surgery Progress Note: Subj - Subjective Narrative: Pt is a 53 yo female, ileostomy reversal post op day 1. She had several episodes of low BP overnight, and the MEDICARE BILLER working was made aware. This morning, pt reports feeling 5/10 pain. She walked to the bathroom this morning, and had a bowel movement at around 4 am, which was loose. She complains of clear liquid drainage from the ashely drain last night. She complains of some dry mouth. She denies nausea, vomiting, blood stools, and dizziness. Surgery Progress Note: Obj - Vital signs Vital signs: Vital Signs - Most Recent Temp Pulse Resp BP Pulse Ox 97.6 F 98 20 90/47 L 96 02/08/19 04:00 02/08/19 04:00 02/08/19 04:00 02/08/19 04:00 02/08/19 04:00 - Physical Exam General: no distress Cardiovascular: regular rate and rhythm Respiratory: other (On auscultation, rales heard bilaterally on bases) Abdomen: soft, nondistended, positive bowel sounds, appropriately tender Wound: dressing clean,dry,intact, healing well Surgery Progress Note: Results - Labs Result Diagrams: 02/08/19 05:14 02/08/19 05:14 Surgery Progress Note: A/P - Problem (1) Status post reversal of ileostomy Current Visit: Yes Code(s): Z98.890 - OTHER SPECIFIED POSTPROCEDURAL STATES Status: Acute - Plan Plan: -Continue wound care -continue liquid diet till patient can tolerate solids -Pain mgmt, well tolerated on Tylenol and Toradol -maintain DVT prophylaxis -Pt was given incentive spirometer this morning and is encouraged to use it -Ambulation encouraged Addendum - Physician - Physician Attestation Date/Time: 02/08/19 [id number] I personally performed or re-performed the physical examination and medical decision making. I have verified all student documentation or findings, including history, physical exam and/or medical decision making. Full liquids for dinner if no nausea Continue to ambulate
[2019-02-08 06:18] LABS: Hemoglobin 9.5 g/dL (12.0-16.0); Mean Corpuscular HGB CONC 32.7 g/dL (32.0-36.0); Mean Corpuscular Hemoglobin 32.5 pg (27.0-31.0); Mean Corpuscular Volume 99.4 fL (78.0-98.0); Mean Platelet Volume 7.1 fL (7.4-10.4); Platelet Count 453 thou/uL (130-400); RBC Distribution Width 13.1 % (11.5-14.5); Red Blood Cell (RBC) Count 2.93 mill/uL (4.20-5.40)
[2019-02-08 06:32] LABS: Anion Gap 11 mmol/L (10-20); BUN (Urea Nitrogen) 14 mg/dL (9.8-20.1); Calc. Creatinine Clearance 32 mL/min (70-130); Calcium 8.2 mg/dL (7.8-10.44); Carbon Dioxide 15 mmol/L (22-29); Chloride 110 mmol/L (98-107); Estimated GFR-MDRD 35; Glucose 74 mg/dL (70-105); Potassium 3.6 mmol/L (3.5-5.1); Sodium 132 mmol/L (136-145)
[2019-02-08 06:35] LABS: Band 12 % (5-11); Lymphocytes 12 % (21-51); MDiff Complete? YES; Monocytes 2 % (0-10); Neutrophil 74 % (42-75)
[2019-02-08 07:13] LABS: CMV DNA-PCR Test Negative (Negative)
[2019-02-08] MEDS: Famotidine/PF 20 mg/2ml Vial SLOW IVP SCH (08:13)
[2019-02-08] MEDS: Famotidine 20 MG TAB PO SCH (08:15)
[2019-02-08] MEDS: Carvedilol 6.25 MG TAB PO SCH ×2 (08:15→17:00)
[2019-02-08] MEDS: Fentanyl 100 MCG/2 ML VIAL SLOW IVP PRN ×2 (13:23→18:09)
--- NOTE | 2019-02-08 13:23 | PDOC.HOSPP ---
- Subjective Encounter Date: 02/08/19 Encounter Time: 13:20 Subjective: f/u for ileostomy reversal POD #1. Some pain currently managed with Fentanyl/ Toradol. Tolerating clear liquids. - Objective Vital Signs & Weight: Vital Signs (12 hours) Temp Pulse Resp BP BP BP Pulse Ox 02/08/19 08:30 107/62 02/08/19 08:15 124/75 02/08/19 08:00 94 L 02/08/19 07:13 98.3 F 102 H 18 87/55 L 94 L 02/08/19 04:00 97.6 F 98 20 90/47 L 96 Weight Admit Weight 110 lb 7 oz Weight 110 lb 0.171 oz I&O: 02/07/19 02/08/19 02/09/19 06:59 06:59 06:59 Intake Total 3435 2332 Output Total 303 700 Balance 3132 1632 Result Diagrams: 02/08/19 05:14 02/08/19 05:14 Additional Labs: Microbiology 02/02/19 23:20 Urine clean catch Urine Culture - Preliminary NO GROWTH AT 24 HOURS 02/02/19 19:32 Venous blood - Right Arm Blood Culture - Preliminary Specimen has been received and culture in progress. No Growth to date. 02/02/19 19:25 Venous blood - Left Arm Blood Culture - Preliminary Specimen has been received and culture in progress. No Growth to date. Laboratory Tests 02/02/19 02/02/19 02/02/19 19:27 19:27 19:27 WBC 16.7 H Hgb 13.0 Plt Count ESR Westergren Sodium 117 L* Carbon Dioxide BUN 48 H Creatinine 2.35 H Calcium 10.9 H TSH 3rd Generation 3.3727 02/02/19 02/02/19 02/04/19 19:27 23:41 05:50 WBC 9.1 Hgb 10.8 L Plt Count 494 H ESR Westergren 59 Sodium 118 L* Carbon Dioxide BUN 48 H Creatinine 2.32 H Calcium 10.1 TSH 3rd Generation 02/05/19 02/06/19 02/07/19 05:05 05:45 05:12 WBC Hgb Plt Count ESR Westergren Sodium Carbon Dioxide 19 L 16 L 20 L BUN Creatinine 1.45 H 1.18 H 1.29 H Calcium TSH 3rd Generation Hospitalist ROS - Medication Medications: Active Medications Generic Name Dose Route Start Last Admin Trade Name Freq PRN Reason Stop Dose Admin Carvedilol 6.25 mg 02/03/19 08:00 02/08/19 08:15 Coreg PO 6.25 mg BID-WM GEORGI Administration Enoxaparin Sodium 40 mg 02/07/19 21:00 02/07/19 20:30 Lovenox SC 40 mg 2100 GEORGI Administration Famotidine 20 mg 02/08/19 09:00 02/08/19 08:15 Pepcid PO 20 mg DAILY GEORGI Administration Famotidine 20 mg 02/08/19 09:00 02/08/19 08:13 Pepcid SLOW IVP Not Given DAILY GEORGI Fentanyl 50 mcg 02/07/19 11:24 02/07/19 15:22 Sublimaze SLOW IVP 50 mcg Q2H PRN Administration Moderate to Severe Pain (6-10) Sodium Chloride 1,000 mls @ 70 mls/hr 02/07/19 11:24 02/08/19 05:26 Normal Saline 0.9% IV Not Given .[id number] GEORGI Ketorolac Tromethamine 15 mg 02/07/19 18:00 02/08/19 12:00 Toradol IVP 02/12/19 18:01 15 mg Q6HR GEORGI Administration - Exam General Appearance: NAD, awake alert Eye: PERRL, anicteric sclera ENT: normocephalic atraumatic, no oropharyngeal lesions Neck: supple, symmetric, no JVD, no thyromegaly, no lymphadenopathy Heart: RRR, no murmur, no gallops, no rubs, normal peripheral pulses Respiratory: CTAB, no wheezes, no rales, no ronchi, normal chest expansion Gastrointestinal: soft, non-distended, normal bowel sounds, no palpable masses, tender to palpation Gastrointestinal - other findings: post surgical dressing in place Extremities: no cyanosis, no clubbing, no edema Skin: normal turgor, no lesions Neurological: CN's grossly intact, no focal deficits, no new deficit Musculoskeletal: normal tone, normal strength Psychiatric: normal affect, normal behavior, A&O x 3 Hosp A/P (1) Hyponatremia Code(s): E87.1 - HYPO-OSMOLALITY AND HYPONATREMIA Status: Acute Plan: Stabilizing, continue low-volume IV NS, serial monitoring (2) RUT (acute kidney injury) Code(s): N17.9 - ACUTE KIDNEY FAILURE, UNSPECIFIED Status: Acute Plan: Improved, avoid nephrotoxic meds and limit contrast exposure (3) Mild dehydration Code(s): E86.0 - DEHYDRATION Status: Acute (4) S/P ileostomy Code(s): Z93.2 - ILEOSTOMY STATUS Status: Chronic Plan: Ileostomy reversal POD #1, pain control with IV Fentanyl/Toradol, Ofirmev, clear liquids as tolerated - Plan plan discussed w/ family, continue antibiotics, out of bed/ambulate, DVT proph w /SCDs Stable currently Decrease IVF's 70ml/h Continue Protonix 40mg BID OOB/ambulate Pain control with Fentanyl/Toradol/Ofirmev Clear liquids as tolerated AM lab: BMP, CBC
[2019-02-08] MEDS ORDERED: Cosyntropin 250 MCG VIAL SLOW IVP SCH (15:45)
[2019-02-08] MEDS: Ondansetron PF 4 MG/2 ML Vial IVP PRN (18:09)
[2019-02-08] MEDS: Enoxaparin Sodium 40 MG/0.4 ML SYRINGE SC SCH (20:32)
--- NOTE | 2019-02-08 21:40 | PRG ---
DATE OF SERVICE: 02/08/2019 SUBJECTIVE: The patient is seen and examined, noted with the following vital signs. OBJECTIVE: VITAL SIGNS: Afebrile, temperature 98.2, pulse 117, blood pressure 124/75, respiratory rate 21, and O2 saturation 94%. HEENT: Unremarkable. CARDIOVASCULAR: First and second heart sounds were heard. RESPIRATORY: Clear to auscultation. DIGESTIVE: Benign abdomen with positive bowel sounds. EXTREMITIES: No peripheral edema. SKIN: No new gross rash. LYMPHATICS: No peripheral lymphadenopathy. LABORATORY INVESTIGATION: White count of 21,000, hemoglobin 9.5, platelets 455,000. Chemistry showed a creatinine of 1.55 and bicarb of 15. IMPRESSION: 1. Acute on chronic kidney disease. 2. Mild hyponatremia. 3. Metabolic acidosis. PLAN: 1. Continue current renal supportive measures. 2. If the patient's metabolic acidosis continues to worsen, we will recommend bicarbonate infusion to address this acid-base disorder. 3. Further management to be dependent on the clinical course. Job ID: [id number]
[2019-02-09] MEDS: Fentanyl 100 MCG/2 ML VIAL SLOW IVP PRN ×4 (00:33→20:33)
[2019-02-09] MEDS: Ondansetron PF 4 MG/2 ML Vial IVP PRN ×2 (02:18→20:27)
[2019-02-09 02:21] LABS: #Lymphocytes 2.4 thou/uL (1.20-3.40); #Monocytes 1.2 thou/uL (0.11-0.59); #Neutrophils 17.4 thou/uL (1.40-6.50); %Basophils 0.2 % (0.0-1.0); %Eosinophils 0.1 % (0.0-10.0); %Lymphocytes 11.4 % (21.0-51.0); %Monocytes 5.8 % (0.0-10.0); %Neutrophils 82.5 % (42.0-75.0); Hemoglobin 9.2 g/dL (12.0-16.0); Mean Corpuscular HGB CONC 33.7 g/dL (32.0-36.0); Mean Corpuscular Hemoglobin 33.5 pg (27.0-31.0); Mean Corpuscular Volume 99.5 fL (78.0-98.0); Mean Platelet Volume 6.4 fL (7.4-10.4); Platelet Count 401 thou/uL (130-400); Red Blood Cell (RBC) Count 2.75 mill/uL (4.20-5.40)
[2019-02-09 02:55] LABS: Anion Gap 13 mmol/L (10-20); BUN (Urea Nitrogen) 18 mg/dL (9.8-20.1); Calc. Creatinine Clearance 34 mL/min (70-130); Calcium 8.8 mg/dL (7.8-10.44); Carbon Dioxide 15 mmol/L (22-29); Chloride 113 mmol/L (98-107); Estimated GFR-MDRD 37; Glucose 82 mg/dL (70-105); Potassium 3.7 mmol/L (3.5-5.1); Sodium 137 mmol/L (136-145)
[2019-02-09] MEDS ORDERED: Magnesium Sulfate 2 GM in Sodium Chloride 0.9% 100 ML IVPB SCH (03:00)
[2019-02-09] MEDS: Magnesium 2 GM/50 ML 2 GM in Premix Bag 1 BAG IVPB SCH ×2 (04:07→05:07)
[2019-02-09 06:49] LABS: Bilirubin Negative (Negative); Blood, Urine 1+ (Negative); Clarity Turbid (Clear); Glucose, Urine (Dipstick) Normal (Negative); Leukocyte 75 Leu/uL (Negative); Nitrite Negative (Negative); Protein, Urine (Dipstick) 50 mg/dL (Neg-Trace); Squamous Epithelial 0-3 HPF (0-3); Urobilinogen Normal mg/dL (Less than 2)
[2019-02-09] MEDS: Sodium Chloride 0.9% 1,000 ML IV SCH ×2 (06:50→17:48)
[2019-02-09 07:05] LABS: Bacteria/HPF 2+ HPF (None Seen)
[2019-02-09 07:06] LABS: Urine Culture Reflex Yes Yes
--- NOTE | 2019-02-09 08:04 | RAD ---
RADIOGRAPH CHEST 1 VIEW: DATE: 02/09/2019 TIME: 2:59 AM HISTORY: 53-year-old female with dyspnea and tachypnea COMPARISON: 02/03/2019 FINDINGS: New finding of mild interstitial densities at the bilateral lower lung zones. New finding of small ai rspace density at medial base of left lower lobe. Cardiomediastinal silhouette is normal, no cardiomegaly. No pneumothorax. IMPRESSION: 1. Small airspace density at medial base of left lower lobe. 2. Prominent interstitial markings.
[2019-02-09] MEDS: Famotidine 20 MG TAB PO SCH ×2 (08:35→08:37)
[2019-02-09] MEDS: Carvedilol 6.25 MG TAB PO SCH ×2 (09:57→16:52)
[2019-02-09] MEDS: Famotidine/PF 20 mg/2ml Vial SLOW IVP SCH (09:57)
--- NOTE | 2019-02-09 10:37 | PRG ---
DATE OF SERVICE: 02/08/2019 SUBJECTIVE: Ms. Kwan had ileostomy takedown yesterday. She feels better yesterday than today. Her labs all did improve prior to her surgery just with hydration. OBJECTIVE: VITAL SIGNS: Temperature is 98, pulse 92, blood pressure 124/75. GENERAL: She is a little bit frail in bed. She is having mild abdominal discomfort. She is minimally tender on palpation. Positive bowel sounds. No rebound. No guarding. LUNGS: Clear. LABORATORY DATA: White count 21,000, hemoglobin 9.5, and platelet count 453. Sodium 133, potassium 3.6, and BUN and creatinine are 1.5 and 35. Labs urine histoplasmosis was negative. CMV DNA was negative. Cryptococcal antigen negative. Urine culture negative. Blood cultures are negative. On 02/03, she had a chest x-ray showed no inflammation. ASSESSMENT: 1. Status post takedown of ileostomy after complications of ileal resection related to adenocarcinoma in setting of Crohn's. 2. Crohn disease in clinical remission by recent endoscopy. 3. Recent admission with dehydration, elevated inflammatory markers, it was felt likely that this is probably related to dehydration for ostomy output as with IV hydration, most symptoms improved. 4. Thrombocytosis persists. 5. Mild tachycardia and leukocytosis, post surgery, significant stress effect. RECOMMENDATIONS: 1. Check cortrosyn stim test as she was on IV steroids and oral steroids before over the past couple of years. We will need to make sure she is not adrenal insufficient. 2. If the diarrhea continues, will check a stool for Clostridium difficile. 3. We will continue IV hydration currently as she is not taking much in by mouth. 4. With thrombocytosis, we will check her iron and B12 and thiamine. Job ID: [id number]
--- NOTE | 2019-02-09 11:01 | PDOC.GSPN ---
Surgery Progress Note: Subj - Subjective Narrative: Complaining of diarrhea, loose stools and vomitted a few times yesterday afternoon. Tachypneic overnight. Chest film shows no obvious pneumonia or overload Surgery Progress Note: Obj - Vital signs Vital signs: Vital Signs - Most Recent Temp Pulse Resp BP Pulse Ox 98.1 F 106 H 16 124/75 95 02/09/19 07:09 02/09/19 07:09 02/09/19 07:09 02/09/19 09:57 02/09/19 08:00 - Physical Exam General: no distress Abdomen: soft, positive bowel sounds, appropriately tender, distended Wound: healing well (ashely removed from ostomy site) Surgery Progress Note: Results - Labs Result Diagrams: 02/09/19 02:10 02/09/19 02:10 Lab results: Laboratory Results - last 24 hr 02/09/19 02/09/19 02/09/19 02:10 02:10 02:10 WBC RBC Hgb Hct MCV MCH MCHC RDW Plt Count MPV Neutrophils % Neutrophils % (Manual) Lymphocytes % Monocytes % Eosinophils % Basophils % Neutrophils # Lymphocytes # Monocytes # Eosinophils # Basophils # Sodium 137 Potassium 3.7 Chloride 113 H Carbon Dioxide 15 L Anion Gap 13 BUN 18 Creatinine 1.48 H Estimated GFR (MDRD) 37 Glucose 82 Lactic Acid Calcium 8.8 Magnesium 0.9 L* B-Natriuretic Peptide 292.0 H Cortisol Response Urine Color Urine Clarity Urine pH Ur Specific [place] Urine Protein Urine Glucose (UA) Urine Ketones Urine Blood Urine Nitrite Urine Bilirubin Urine Urobilinogen Ur Leukocyte Esterase Urine RBC Urine WBC Ur Squamous Epith Cells Urine Bacteria Hyaline Casts Granular Casts Urine Culture Reflexed 02/09/19 02/09/19 02/09/19 02:10 02:10 05:40 WBC 21.0 H RBC 2.75 L Hgb 9.2 L Hct 27.4 L MCV 99.5 H MCH 33.5 H MCHC 33.7 RDW 13.0 Plt Count 401 H MPV 6.4 L Neutrophils % 82.5 H Neutrophils % (Manual) Not Reportable Lymphocytes % 11.4 L Monocytes % 5.8 Eosinophils % 0.1 Basophils % 0.2 Neutrophils # 17.4 H Lymphocytes # 2.4 Monocytes # 1.2 H Eosinophils # 0.0 Basophils # 0.0 Sodium Potassium Chloride Carbon Dioxide Anion Gap BUN Creatinine Estimated GFR (MDRD) Glucose Lactic Acid 0.7 Calcium Magnesium B-Natriuretic Peptide Cortisol Response Urine Color Yellow Urine Clarity Turbid A Urine pH 5.5 Ur Specific [place] 1.018 Urine Protein 50 A Urine Glucose (UA) Normal Urine Ketones 10 A Urine Blood 1+ A Urine Nitrite Negative Urine Bilirubin Negative Urine Urobilinogen Normal Ur Leukocyte Esterase 75 A Urine RBC 4-6 A Urine WBC 11-20 A Ur Squamous Epith Cells 0-3 Urine Bacteria 2+ A Hyaline Casts Greater than 50 A Granular Casts 21-50 A Urine Culture Reflexed Yes A 02/09/19 07:00 WBC RBC Hgb Hct MCV MCH MCHC RDW Plt Count MPV Neutrophils % Neutrophils % (Manual) Lymphocytes % Monocytes % Eosinophils % Basophils % Neutrophils # Lymphocytes # Monocytes # Eosinophils # Basophils # Sodium Potassium Chloride Carbon Dioxide Anion Gap BUN Creatinine Estimated GFR (MDRD) Glucose Lactic Acid Calcium Magnesium B-Natriuretic Peptide Cortisol Response Urine Color Urine Clarity Urine pH Ur Specific [place] Urine Protein Urine Glucose (UA) Urine Ketones Urine Blood Urine Nitrite Urine Bilirubin Urine Urobilinogen Ur Leukocyte Esterase Urine RBC Urine WBC Ur Squamous Epith Cells Urine Bacteria Hyaline Casts Granular Casts Urine Culture Reflexed Surgery Progress Note: A/P - Problem (1) Status post reversal of ileostomy Current Visit: Yes Code(s): Z98.890 - OTHER SPECIFIED POSTPROCEDURAL STATES Status: Acute - Plan Plan: POD 2 -persistent expected ileus. cont liquids until distention resolves -? adrenal insufficiency -encouraged ambulation
--- NOTE | 2019-02-09 11:38 | PDOC.HOSPP ---
- Subjective Encounter Date: 02/09/19 Encounter Time: 11:30 Subjective: f/u s/p ileostomy reversal POD #2. Increased loose stool, abd pain and tachycardia noted. - Objective Vital Signs & Weight: Vital Signs (12 hours) Temp Pulse Resp BP BP BP Pulse Ox 02/09/19 09:57 124/75 02/09/19 08:00 95 02/09/19 07:09 98.1 F 106 H 16 97/52 L 95 02/09/19 04:00 98.4 F 119 H 22 H 129/84 93 L 02/09/19 03:10 119 H 127/77 02/09/19 00:00 98.3 F 126 H 24 H 111/73 93 L Weight Admit Weight 110 lb 7 oz Weight 110 lb 0.171 oz I&O: 02/08/19 02/09/19 02/10/19 06:59 06:59 06:59 Intake Total 2332 1400 Output Total 700 500 Balance 1632 900 Result Diagrams: 02/09/19 02:10 02/09/19 02:10 Additional Labs: Microbiology 02/02/19 23:20 Urine clean catch Urine Culture - Preliminary NO GROWTH AT 24 HOURS 02/02/19 19:32 Venous blood - Right Arm Blood Culture - Preliminary Specimen has been received and culture in progress. No Growth to date. 02/02/19 19:25 Venous blood - Left Arm Blood Culture - Preliminary Specimen has been received and culture in progress. No Growth to date. Laboratory Tests 02/02/19 02/02/19 02/02/19 19:27 19:27 19:27 WBC 16.7 H Hgb 13.0 Plt Count Neutrophils % Neutrophils % (Manual) Band Neuts % (Manual) ESR Westergren Sodium 117 L* Carbon Dioxide BUN 48 H Creatinine 2.35 H Lactic Acid Calcium 10.9 H Magnesium TSH 3rd Generation 3.3727 02/02/19 02/02/19 02/04/19 19:27 23:41 05:50 WBC 9.1 Hgb 10.8 L Plt Count 494 H Neutrophils % Neutrophils % (Manual) Band Neuts % (Manual) ESR Westergren 59 Sodium 118 L* Carbon Dioxide BUN 48 H Creatinine 2.32 H Lactic Acid Calcium 10.1 Magnesium TSH 3rd Generation 02/05/19 02/06/19 02/07/19 05:05 05:45 05:12 WBC Hgb Plt Count Neutrophils % Neutrophils % (Manual) Band Neuts % (Manual) ESR Westergren Sodium Carbon Dioxide 19 L 16 L 20 L BUN Creatinine 1.45 H 1.18 H 1.29 H Lactic Acid Calcium Magnesium TSH 3rd Generation 02/08/19 02/08/19 02/09/19 05:14 05:14 02:10 WBC 21.0 H Hgb 9.5 L Plt Count 453 H Neutrophils % Neutrophils % (Manual) 74 Band Neuts % (Manual) 12 H ESR Westergren Sodium 132 L Carbon Dioxide BUN Creatinine 1.55 H Lactic Acid Calcium Magnesium 0.9 L* TSH 3rd Generation 02/09/19 02/09/19 02:10 02:10 WBC Hgb Plt Count Neutrophils % 82.5 H Neutrophils % (Manual) Band Neuts % (Manual) ESR Westergren Sodium Carbon Dioxide BUN Creatinine Lactic Acid 0.7 Calcium Magnesium TSH 3rd Generation Radiology Reviewed by me: Yes (PCXR - increased interstitial markings) Hospitalist ROS - Medication Medications: Active Medications Generic Name Dose Route Start Last Admin Trade Name Freq PRN Reason Stop Dose Admin Carvedilol 6.25 mg 02/03/19 08:00 02/09/19 09:57 Coreg PO Not Given BID-WM GEORGI Cosyntropin 250 mcg 02/08/19 15:45 02/09/19 08:35 Cortrosyn SLOW IVP 02/09/19 15:46 250 mcg WILLCALL GEORGI Administration Enoxaparin Sodium 40 mg 02/07/19 21:00 02/08/19 20:32 Lovenox SC 40 mg 2100 GEORGI Administration Famotidine 20 mg 02/08/19 09:00 02/09/19 08:37 Pepcid PO 20 mg DAILY GEORGI Administration Famotidine 20 mg 02/08/19 09:00 02/09/19 09:57 Pepcid SLOW IVP Not Given DAILY GEORGI Fentanyl 50 mcg 02/07/19 11:24 02/09/19 06:49 Sublimaze SLOW IVP 50 mcg Q2H PRN Administration Moderate to Severe Pain (6-10) Sodium Chloride 1,000 mls @ 70 mls/hr 02/07/19 11:24 02/09/19 06:50 Normal Saline 0.9% IV 1,000 mls .[id number] GEORGI Administration Ondansetron HCl 4 mg 02/07/19 11:24 02/09/19 02:18 Zofran IVP 4 mg Q6H PRN Administration Nausea/Vomiting Promethazine HCl 12.5 mg 02/07/19 11:24 02/08/19 20:32 Phenergan IM 12.5 mg Q4H PRN Administration Nausea/Vomiting - Exam General Appearance: awake alert Eye: PERRL, anicteric sclera ENT: normocephalic atraumatic, no oropharyngeal lesions Neck: supple, symmetric, no JVD, no thyromegaly, no lymphadenopathy Heart: RRR, no murmur, no gallops, no rubs, normal peripheral pulses Respiratory: CTAB, no wheezes, tachypneic Respiratory - other findings: diminished in bases Gastrointestinal: tender to palpation, diminished bowl sounds Gastrointestinal - other findings: mild distention, surgical incision intact, PEG intact Extremities: no cyanosis, no edema Skin: normal turgor, no lesions Neurological: CN's grossly intact, no focal deficits, no new deficit Musculoskeletal: normal tone, normal strength Psychiatric: normal affect, A&O x 3 Hosp A/P (1) Ileus Code(s): K56.7 - ILEUS, UNSPECIFIED Status: Acute Plan: mild ileus suspected POD #2, OOB/ambulate, serial abd exams (2) RUT (acute kidney injury) Code(s): N17.9 - ACUTE KIDNEY FAILURE, UNSPECIFIED Status: Acute Plan: Stable, avoid nephrotoxic agents and limit contrast, serial creatinine (3) Status post reversal of ileostomy Code(s): Z98.890 - OTHER SPECIFIED POSTPROCEDURAL STATES Status: Acute Plan: POD #2, pain control (4) Mild dehydration Code(s): E86.0 - DEHYDRATION Status: Acute Plan: Continue low-volume IVF's, stable (5) Hypomagnesemia Code(s): E83.42 - HYPOMAGNESEMIA Status: Acute Plan: Magnesium replacement, serial Mg++ monitoring (6) Neutrophilic leukocytosis Code(s): D72.9 - DISORDER OF WHITE BLOOD CELLS, UNSPECIFIED Status: Acute Plan: Suspect due to surgical intervention, check blood cx x 2, UA suspicious for potential source (7) Crohn's disease Code(s): K50.90 - CROHN'S DISEASE, UNSPECIFIED, WITHOUT COMPLICATIONS Status: Chronic Qualifiers: Gastrointestinal tract location: small and large intestine (8) Metabolic acidosis Code(s): E87.2 - ACIDOSIS Status: Acute Plan: Suspect due to recent ileostomy, continue close monitoring, r/o occult infection (9) Hyponatremia Code(s): E87.1 - HYPO-OSMOLALITY AND HYPONATREMIA Status: Acute Plan: Resolved - Plan plan discussed w/ family, continue antibiotics, social studies teacher, respiratory therapy, out of bed/ambulate, DVT proph w/SCDs Stable currently Continue IVF's 70ml/h Continue Protonix 40mg BID OOB/ambulate Pain control with Fentanyl/Ofirmev Clear liquids as tolerated Start Rocephin given UA results and await Ucx Check Blood cx x 2 AM lab: BMP, CBC
[2019-02-09] MEDS: cefTRIAXone\\ROCEPHIN 2 GM in Sodium Chloride 0.9% 100 ML IVPB SCH (12:23)
[2019-02-09] MEDS: Hydrocortisone Sod Succ/PF 100 mg/2 ml Vial IVP SCH (15:53)
[2019-02-09] MEDS ORDERED: Potassium Phosphate 30 MMOL in Sodium Chloride 0.9% 500 ML IVPB SCH (17:30)
--- NOTE | 2019-02-09 17:37 | EKG ---
Test Reason : Blood Pressure : / mmHG Vent. Rate : 117 BPM Atrial Rate : 117 BPM P-R Int : 112 ms QRS Dur : 072 ms QT Int : 316 ms P-R-T Axes : 062 064 068 degrees QTc Int : 440 ms Sinus tachycardia Low voltage QRS Borderline ECG Confirmed by EFRAIN GARCIA ([id number]) on 02/09/2019 5:37:37 PM Referred By: GILLIAN MORRIS Confirmed By:EFRAIN GARCIA
--- NOTE | 2019-02-09 18:01 | PRG ---
DATE OF SERVICE: 02/09/2019 SUBJECTIVE: Ms. Kwan is feeling better today. She is not having nausea, vomiting, or pain she was having yesterday. She is tolerating some p.o. She has had no diarrhea today. She was started on hydrocortisone empirically for possible adrenal insufficiency. She was significantly hypotensive after surgery. OBJECTIVE: VITAL SIGNS: Temperature is 98.1, pulse is 106, blood pressure 97/52. GENERAL: She looks more comfortable today. ABDOMEN: Soft and nontender. Incision has some ecchymoses. The wound is dry and there is no erythema. Her abdomen is nontender. LABORATORY DATA: White count 21,000, hemoglobin 9.2, platelet count 401. Magnesium was 0.9, this has been replaced. Sodium 137, potassium 3.7, BUN and creatinine are 18 and 1.49. BNP was 292. Cortisol stimulation test demonstrated a baseline cortisol of 18; 30, 60 and 90 were 31, 34, and 37. ASSESSMENT: 1. Crohn's, in remission. 2. No signs of adrenal insufficiency. 3. Status post takedown of ileostomy. RECOMMENDATIONS: Advance diet as tolerated. I would stop the steroids tomorrow. There are no signs of adrenal insufficiency. If she is not eating well, she does have a PEG tube, which can be used nocturnally, which she was doing at home. We will follow along with you. Job ID: [id number]
[2019-02-09] MEDS: Enoxaparin Sodium 40 MG/0.4 ML SYRINGE SC SCH (20:23)
[2019-02-10] MEDS: Hydrocortisone Sod Succ/PF 100 mg/2 ml Vial IVP SCH ×2 (00:04→09:37)
[2019-02-10] MEDS: Fentanyl 100 MCG/2 ML VIAL SLOW IVP PRN ×4 (00:11→21:10)
--- NOTE | 2019-02-10 05:07 | PRG ---
DATE OF SERVICE: 02/09/2019 SUBJECTIVE: The patient noted with the following vital signs. OBJECTIVE: VITAL SIGNS: Temperature 98.1, pulse 106, respiratory rate of 16, O2 saturation 95%, blood pressure 97/52. HEENT: Unremarkable. CARDIOVASCULAR: First and second heart sounds were heard, RESPIRATORY: Clear to auscultation. DIGESTIVE: Revealed a benign abdomen. Positive bowel sounds. EXTREMITIES: No peripheral edema. SKIN: No new gross rash. IMPRESSION: 1. Acute on chronic kidney disease, which seems to be improved. 2. Status post reversal of ileostomy. PLAN: 1. Continue current renal supportive measures. 2. Replete magnesium. 3. Continue with electrolyte especially the potassium. 4. Further management to be dependent on the clinical course. Job ID: [id number]
--- NOTE | 2019-02-10 05:44 | PRG ---
DATE OF SERVICE: 02/10/2019 SUBJECTIVE: The patient noted with the following vital signs. OBJECTIVE: VITAL SIGNS: Afebrile, temperature 98.5, pulse 112 to 114, respiratory rate of 16, O2 saturation 97%, blood pressure 138/81. HEENT: Unremarkable. CARDIOVASCULAR: First and second heart sounds were heard. RESPIRATORY: Clear to auscultation. DIGESTIVE: Revealed a benign abdomen. Positive bowel sounds. EXTREMITIES: No peripheral edema. SKIN: No new gross rash. LYMPHATICS: No peripheral lymphadenopathy. IMPRESSION: 1. Acute on chronic kidney disease, which seems to be improved. 2. Metabolic acidosis in the context of bicarbonate loss from the gastrointestinal tract. 3. Status post ileostomy reversal. 4. Hypomagnesemia. PLAN: 1. Re-evaluate the chemistry, especially potassium and magnesium level, and replete accordingly. 2. Consider discontinuation of normal saline to avoid re-expansion acidosis and use bicarbonate infusion. However, a very close attention has to be paid to potassium as this will drop lower once the metabolic acidosis begins to be corrected. 3. Renally dose all medications. Avoid potentially nephrotoxic agents. 4. Further management to be dependent on the clinical course. Job ID: [id number]
[2019-02-10 08:12] LABS: Hemoglobin 9.9 g/dL (12.0-16.0); Mean Corpuscular HGB CONC 34.4 g/dL (32.0-36.0); Mean Corpuscular Hemoglobin 34.2 pg (27.0-31.0); Mean Corpuscular Volume 99.4 fL (78.0-98.0); Mean Platelet Volume 7.3 fL (7.4-10.4); Platelet Count 543 thou/uL (130-400); RBC Distribution Width 13.4 % (11.5-14.5); Red Blood Cell (RBC) Count 2.88 mill/uL (4.20-5.40); White Blood Cell (WBC) Count 22.6 thou/uL (4.8-10.8)
[2019-02-10 08:19] LABS: Phosphorus 4.5 mg/dL (2.3-4.7)
[2019-02-10 08:23] LABS: ALT (SGPT) 25 U/L (8-55); AST (SGOT) 27 U/L (5-34); Albumin 3.2 g/dL (3.5-5.0); Alkaline Phosphatase 96 U/L (40-150); Anion Gap 14 mmol/L (10-20); BUN (Urea Nitrogen) 16 mg/dL (9.8-20.1); Bilirubin, Total 0.5 mg/dL (0.2-1.2); Calc. Creatinine Clearance 42 mL/min (70-130); Calcium 9.4 mg/dL (7.8-10.44); Carbon Dioxide 17 mmol/L (22-29); Chloride 113 mmol/L (98-107); Estimated GFR-MDRD 48; Globulin 3.2 g/dL (2.4-3.5); Glucose 114 mg/dL (70-105); Potassium 3.7 mmol/L (3.5-5.1); Protein, Total 6.4 g/dL (6.0-8.3); Sodium 140 mmol/L (136-145)
[2019-02-10 09:01] LABS: Band 6 % (5-11); Lymphocytes 14 % (21-51); MDiff Complete? YES; Monocytes 11 % (0-10); Neutrophil 69 % (42-75); Platelet Morphology Comment Appears Increased; Polychromasia SLIGHT = 2-3 cells (100X) (0-2/hpf)
[2019-02-10] MEDS: Carvedilol 6.25 MG TAB PO SCH ×2 (09:37→15:35)
[2019-02-10] MEDS: Famotidine/PF 20 mg/2ml Vial SLOW IVP SCH (09:38)
[2019-02-10] MEDS: Sodium Chloride 0.9% 1,000 ML IV SCH (09:38)
--- NOTE | 2019-02-10 09:55 | PDOC.GSPN ---
Surgery Progress Note: Subj - Subjective Patient reports: feels better, having loose stools, pain is less Narrative: s/p ileostomy reversal. Had been having diarrhea & stool studies were sent for c. difficile--preliminary results show + for antigen with toxin results still pending. Blood cx so far are neg as are urine cx. There was some concern for possible adrenal insufficiency, but per GI note, cortisol levels have been wnl. Overall feeling better with less pain. Still having loose stools, though reports some formed pieces in BM from this am at approx 0900. Continues to c/o sob with exertion (walking to bathroom, around the halls); & pt request portable O2 to be available for these ambulatory activities. Still with poor appetite; feels like if she has food available that she likes, she will eat better--states he will bring in outside food that is to her liking & in accordance with the ordered diet. Surgery Progress Note: Obj - Physical Exam General: no distress, well developed Respiratory: normal expansion, normal respiratory effort (Respirations even & unlabored @ rest, but does become noticeably sob after ambulation to/from bathroom.) Abdomen: soft, positive bowel sounds (Bowel sounds active x4 quadrants, improved vs 09 Feb 2019 eval.), appropriately tender Wound: healing well, drainage (Moderate amt of serosanguinous (mostly serous) drainage noted on dsg to RLQ site of drain that was pulled yesterday. redressed area with 4x4 & paper tape. Would edges are well approximated & without erythema, induration, ecchymosis, fluctuance.), other (Midline laparotomy incision well-approximated & without erythema/induration/fluctuance.) Surgery Progress Note: A/P - Problem (1) Status post reversal of ileostomy Code(s): Z98.890 - OTHER SPECIFIED POSTPROCEDURAL STATES Status: Acute - Plan Plan: Overall improving s/p ileostomy reversal. -consider advancing diet as tolerated as per GI recommendation -await c. diff toxin results -consider making portable O2 available for ambulatory activities
[2019-02-10] MEDS: cefTRIAXone\\ROCEPHIN 2 GM in Sodium Chloride 0.9% 100 ML IVPB SCH (12:38)
[2019-02-10] MEDS ORDERED: metroNIDAZOLE 500 MG in Premix Bag 1 BAG IVPB SCH (15:00)
--- NOTE | 2019-02-10 15:20 | PDOC.HOSPP ---
- Subjective Encounter Date: 02/10/19 Subjective: She reports no abdominal pain but reported episodes of diarrhea today. - Objective Vital Signs & Weight: Vital Signs (12 hours) Temp Pulse Resp BP BP BP Pulse Ox 02/10/19 12:02 98.0 F 88 20 117/74 98 02/10/19 09:37 133/84 02/10/19 08:13 98.2 F 106 H 16 133/84 99 02/10/19 04:05 98.5 F 114 H 16 138/81 97 Weight Admit Weight 110 lb 7 oz Weight 110 lb 0.171 oz I&O: 02/09/19 02/10/19 02/11/19 06:59 06:59 06:59 Intake Total 1400 1200 Output Total 500 Balance 900 1200 Result Diagrams: 02/10/19 07:33 02/10/19 07:33 Hospitalist ROS - Medication Medications: Active Medications Generic Name Dose Route Start Last Admin Trade Name Freq PRN Reason Stop Dose Admin Carvedilol 6.25 mg 02/03/19 08:00 02/10/19 09:37 Coreg PO 6.25 mg BID-WM GEORGI Administration Enoxaparin Sodium 40 mg 02/07/19 21:00 02/09/19 20:23 Lovenox SC 40 mg 2100 GEORGI Administration Famotidine 20 mg 02/08/19 09:00 02/09/19 08:37 Pepcid PO 20 mg DAILY GEORGI Administration Famotidine 20 mg 02/08/19 09:00 02/10/19 09:38 Pepcid SLOW IVP 20 mg DAILY GEORGI Administration Fentanyl 25 mcg 02/07/19 11:24 02/10/19 09:57 Sublimaze SLOW IVP 25 mcg Q2H PRN Administration Mild Pain (1-3) Fentanyl 50 mcg 02/07/19 11:24 02/10/19 00:11 Sublimaze SLOW IVP 50 mcg Q2H PRN Administration Moderate to Severe Pain (6-10) Sodium Chloride 1,000 mls @ 70 mls/hr 02/07/19 11:24 02/10/19 09:38 Normal Saline 0.9% IV Not Given .[id number] GEORGI Ondansetron HCl 4 mg 02/07/19 11:24 02/09/19 20:27 Zofran IVP 4 mg Q6H PRN Administration Nausea/Vomiting Promethazine HCl 12.5 mg 02/07/19 11:24 02/08/19 20:32 Phenergan IM 12.5 mg Q4H PRN Administration Nausea/Vomiting - Exam General Appearance: NAD, awake alert Eye: PERRL, anicteric sclera ENT: normocephalic atraumatic, no oropharyngeal lesions, moist mucosa Neck: supple, symmetric, no JVD, no thyromegaly, no lymphadenopathy, no carotid bruit Heart: RRR, no murmur, no gallops, no rubs, normal peripheral pulses Respiratory: rales (fine inspiratory crackles bilaterally) Hosp A/P (1) Clostridium difficile diarrhea Code(s): A04.72 - ENTEROCOLITIS D/T CLOSTRIDIUM DIFFICILE, NOT SPCF RECUR Status: Acute (2) Ileus Code(s): K56.7 - ILEUS, UNSPECIFIED Status: Acute (3) Status post reversal of ileostomy Code(s): Z98.890 - OTHER SPECIFIED POSTPROCEDURAL STATES Status: Acute - Plan GI ---diarrhea secondary to Cdiff , now on vanco po. continue to monitor lytes continue pain control
--- NOTE | 2019-02-10 15:20 | PRG ---
DATE OF SERVICE: 02/10/2019 SUBJECTIVE: Ms. Kwan feeling better. She has a little bit of loose stool. OBJECTIVE: VITAL SIGNS: Pulse has been 102 to 119, presently it is 88, temperature 98.6, and respirations 14. ABDOMEN: Soft and nontender. LUNGS: Clear. HEART: Regular rhythm. LABORATORY DATA: White count 22,000, hemoglobin is 9.9, platelet count 543. BUN and creatinine are 16 and 1.8. Electrolytes are normal. Liver function tests are normal. Magnesium is 2 today. Albumin is 3.2. Stool was performed today. Antigen and toxin positive for C. diff. Blood cultures on 02/09 negative. ASSESSMENT: 1. Status post ileostomy takedown. 2. Clostridium difficile. She previous had ileostomy. It is unclear if this was present before at least on previous testing, had not been noted to be present. The last time that was done was January. RECOMMENDATIONS: 1. Stop IV steroids as there are no signs of renal insufficiency. 2. Start IV Flagyl and p.o. vancomycin. We will follow along with you. Job ID: [id number]
--- NOTE | 2019-02-10 15:30 | PRG ---
DATE OF SERVICE: 02/10/2019 I have seen Ms. Kwan on behalf of Dr. Osvaldo Hickey, primary surgeon for this patient. SUBJECTIVE: The patient is postoperative day #3, status post ileostomy takedown. She is awake and alert today. She reports adequate pain control. She is tolerating clear liquid diet. She is having multiple loose bowel movements. Stool antigen and toxin positive for Clostridium difficile. The patient denies any nausea or vomiting. OBJECTIVE: VITAL SIGNS: Today include blood pressure 133/84, pulse is 106, respiratory rate is 16, temperature 98.2 degrees Fahrenheit, oxygen saturation is 99% on 2 L by nasal cannula oxygen. HEART: Reveals regular rate and rhythm. LUNGS: Clear to auscultation bilaterally. Breathing, regular and nonlabored. ABDOMEN: Soft and nondistended. Incision is intact, clean, and dry. NEUROLOGIC: Reveals no focal deficits present. LABORATORY FINDINGS: Today include a CBC with 22,600 white blood cells, hemoglobin and hematocrit are 9.9 and 28.7 respectively. Platelet count is 543,000. Differential counts as follows, 69% segmented neutrophils, 6 bands, 14 lymphocytes, and 11 monocytes. Metabolic profile; sodium 140, potassium 3.7, chloride is 113, bicarb is 17, BUN is 16, creatinine is 1.18, glucose is 114, magnesium is 2.0, phosphorus is 4.5. IMPRESSION: 1. Postop day #3, status post exploratory laparotomy and ileostomy takedown. 2. Clostridium difficile colitis. 3. Acute . PLAN: 1. Correct abnormal electrolytes. 2. We will initiate appropriate antibiotic therapy for Colostrum difficile. 3. We will initiate enteral nutritional supplementation through the previous gastrostomy tube. 4. Increase activity per Physical and Occupational Therapy. Above findings and plan discussed with the patient, who indicates understanding of information given. I have answered her questions. Job ID: [id number]
[2019-02-10] MEDS: Vancomycin HCl 25 MG/ML Oral PO SCH ×2 (15:47→20:56)
[2019-02-10 19:08] LABS: QuantiFERON-TB Gold Plus Negative (Negative)
[2019-02-10] MEDS: Enoxaparin Sodium 40 MG/0.4 ML SYRINGE SC SCH (20:56)
[2019-02-10] MEDS: metroNIDAZOLE 500 MG in Premix Bag 1 BAG IVPB SCH (21:09)
[2019-02-11] MEDS: Sodium Chloride 0.9% 1,000 ML IV SCH ×2 (01:56→08:16)
[2019-02-11] MEDS: Vancomycin HCl 25 MG/ML Oral PO SCH ×4 (03:40→19:39)
[2019-02-11] MEDS: Fentanyl 100 MCG/2 ML VIAL SLOW IVP PRN ×4 (04:51→19:40)
[2019-02-11] MEDS: metroNIDAZOLE 500 MG in Premix Bag 1 BAG IVPB SCH ×3 (06:10→21:51)
[2019-02-11 07:51] LABS: Anion Gap 10 mmol/L (10-20); BUN (Urea Nitrogen) 13 mg/dL (9.8-20.1); Calc. Creatinine Clearance 57 mL/min (70-130); Calcium 8.4 mg/dL (7.8-10.44); Carbon Dioxide 17 mmol/L (22-29); Chloride 114 mmol/L (98-107); Estimated GFR-MDRD 67; Glucose 77 mg/dL (70-105); Magnesium 1.7 mg/dL (1.6-2.6); Phosphorus 2.6 mg/dL (2.3-4.7); Potassium 3.1 mmol/L (3.5-5.1); Sodium 138 mmol/L (136-145)
[2019-02-11] MEDS: Lactinex Tablet PO SCH (08:12)
[2019-02-11] MEDS: Saccharomyces boulardii 250 MG CAP PO SCH (08:12)
[2019-02-11] MEDS: Famotidine 20 MG TAB PO SCH (08:12)
[2019-02-11] MEDS: Carvedilol 6.25 MG TAB PO SCH ×2 (08:13→16:35)
[2019-02-11] MEDS: Famotidine/PF 20 mg/2ml Vial SLOW IVP SCH (08:13)
[2019-02-11] MEDS ORDERED: Potassium Chloride 20 MEQ TAB PO SCH (10:00)
[2019-02-11 10:08] LABS: #Eosinphils 0.4 thou/uL (0.0-0.7); #Lymphocytes 1.9 thou/uL (1.20-3.40); #Monocytes 0.6 thou/uL (0.11-0.59); #Neutrophils 6.8 thou/uL (1.40-6.50); %Basophils 0.1 % (0.0-1.0); %Eosinophils 4.4 % (0.0-10.0); %Lymphocytes 19.5 % (21.0-51.0); %Monocytes 6.4 % (0.0-10.0); %Neutrophils 69.6 % (42.0-75.0); Hemoglobin 8.4 g/dL (12.0-16.0); Mean Corpuscular Hemoglobin 34.2 pg (27.0-31.0); Mean Platelet Volume 6.7 fL (7.4-10.4); Platelet Count 457 thou/uL (130-400); RBC Distribution Width 13.3 % (11.5-14.5); Red Blood Cell (RBC) Count 2.44 mill/uL (4.20-5.40); White Blood Cell (WBC) Count 9.8 thou/uL (4.8-10.8)
--- NOTE | 2019-02-11 16:00 | PRG ---
DATE OF SERVICE: 02/11/2019 SUBJECTIVE: Ms. Kwan is postop day #4 today status post ileostomy takedown. She is awake and alert. She reports multiple loose bowel movements, which tests yesterday confirmed Clostridium difficile colitis, for which the patient is currently on appropriate antibiotic therapy. She denies any nausea or vomiting. She tolerates the diet and reports adequate pain control. OBJECTIVE: VITAL SIGNS: Include blood pressure of 129/77, pulse 89, respiratory rate is 18, temperature is 98.1 degrees Fahrenheit, and oxygen saturation is 96% on 2 L by nasal cannula oxygen. HEART: Reveals regular rate and rhythm. LUNGS: Clear to auscultation bilaterally. Breathing, regular and nonlabored. ABDOMEN: Soft, moderately distended, but nontender to palpation. NEUROLOGIC: Reveals no focal deficits present. LABORATORY FINDINGS: Today include a CBC with 9800 white blood cells, down from 22,600 yesterday. Hemoglobin and hematocrit are stable at 8.4 and 24.6 respectively. Platelet count is 457,000. Metabolic profile; sodium 138, potassium 3.1, chloride is 114, bicarb is 17, BUN 13, creatinine 0.88, glucose 77, magnesium 1.7, and phosphorus 2.6. IMPRESSION: 1. Postoperative day #4, status post ileostomy takedown. 2. Acute Clostridium difficile colitis. 3. Acute hypokalemia. 4. Acute hypomagnesemia. 5. Acute hypophosphatemia. PLAN: 1. Correct abnormal electrolytes. 2. Continue current antibiotic regimen. 3. No further surgical indication for this patient at this time. Job ID: [id number]
--- NOTE | 2019-02-11 16:34 | PDOC.HOSPP ---
- Subjective Encounter Date: 02/11/19 Encounter Time: 16:32 Subjective: Ms. Kwan was seen today in follow-up of C. Diff diarrhea following ileostomy take down. She notes swelling in both upper extremities, and lower extremities. She continues to have some diarrhea. - Objective Vital Signs & Weight: Vital Signs (12 hours) Temp Pulse Resp BP BP Pulse Ox 02/11/19 08:13 129/77 02/11/19 08:00 96 02/11/19 07:37 98.1 F 89 18 129/77 96 Weight Admit Weight 110 lb 7 oz Weight 110 lb 0.171 oz I&O: 02/10/19 02/11/19 02/12/19 06:59 06:59 06:59 Intake Total 1200 2660 Balance 1200 2660 Result Diagrams: 02/11/19 09:45 02/11/19 06:53 Hospitalist ROS - Medication Medications: Active Medications Generic Name Dose Route Start Last Admin Trade Name Freq PRN Reason Stop Dose Admin Acidophilus 1 tab 02/11/19 09:00 02/11/19 08:12 Floranex PO 1 tab DAILY GEORGI Administration Carvedilol 6.25 mg 02/03/19 08:00 02/11/19 08:13 Coreg PO 6.25 mg BID-WM GEORGI Administration Enoxaparin Sodium 40 mg 02/07/19 21:00 02/10/19 20:56 Lovenox SC 40 mg 2100 GEORGI Administration Famotidine 20 mg 02/08/19 09:00 02/11/19 08:12 Pepcid PO 20 mg DAILY GEORGI Administration Famotidine 20 mg 02/08/19 09:00 02/11/19 08:13 Pepcid SLOW IVP Not Given DAILY GEORGI Fentanyl 25 mcg 02/07/19 11:24 02/11/19 04:51 Sublimaze SLOW IVP 25 mcg Q2H PRN Administration Mild Pain (1-3) Fentanyl 50 mcg 02/07/19 11:24 02/11/19 15:11 Sublimaze SLOW IVP 50 mcg Q2H PRN Administration Moderate to Severe Pain (6-10) Metronidazole 500 mg/ Device 100 mls @ 100 mls/hr 02/10/19 22:00 02/11/19 14: 07 IVPB 02/15/19 14:00 100 mls Q8HR GEORGI Administration Ondansetron HCl 4 mg 02/07/19 11:24 02/09/19 20:27 Zofran IVP 4 mg Q6H PRN Administration Nausea/Vomiting Promethazine HCl 12.5 mg 02/07/19 11:24 02/08/19 20:32 Phenergan IM 12.5 mg Q4H PRN Administration Nausea/Vomiting Dom Worrell 250 mg 02/11/19 09:00 02/11/19 08:12 Florastor PO 250 mg DAILY GEORGI Administration Vancomycin HCl 250 mg 02/10/19 15:00 02/11/19 15:06 First Vancomycin PO 02/24/19 15:01 250 mg 0300,0900,1500,2100 GEORGI Administration - Exam Eye: PERRL, anicteric sclera Heart: RRR, no murmur, no gallops, no rubs, normal peripheral pulses Respiratory: CTAB, no wheezes, no rales, no ronchi, normal chest expansion Gastrointestinal: soft, non-tender, non-distended, normal bowel sounds, no palpable masses Extremities: 2+ LE edema (In both upper and lower extremities, no erythema or warmth) Hosp A/P (1) Clostridium difficile diarrhea Code(s): A04.72 - ENTEROCOLITIS D/T CLOSTRIDIUM DIFFICILE, NOT SPCF RECUR Status: Acute (2) Crohns disease Code(s): K50.90 - CROHN'S DISEASE, UNSPECIFIED, WITHOUT COMPLICATIONS Status: Acute (3) Status post reversal of ileostomy Code(s): Z98.890 - OTHER SPECIFIED POSTPROCEDURAL STATES Status: Acute (4) COPD not affecting current episode of care Code(s): J44.9 - CHRONIC OBSTRUCTIVE PULMONARY DISEASE, UNSPECIFIED Status: Acute - Plan * C. Diff Colitis- continue Oral Vancomycin * Generalized edema- will discontinue IV fluids * She is at risk for the development of malnutrition in the hospital- will add Jevity through her PEG tube 1 can twice a day ( she says she can not tolerate nutritional supplements by mouth) * Crohn's disease- stable
--- NOTE | 2019-02-11 17:27 | PRG ---
DATE OF SERVICE: 02/11/2019 SUBJECTIVE: Ms. Kwan says she has had 5 loose bowel movements today. Abdominal discomfort is a little better, but still persistent, particularly when she gets up and down. She was able to tolerate a regular diet for breakfast. She has been clinically stable. She does not like the taste of the oral vancomycin. PHYSICAL EXAMINATION: VITAL SIGNS: Temperature 98.1, blood pressure 136/84, pulse 89, 96% oxygen saturation on 2 L nasal cannula. GENERAL: No acute distress. HEART: Regular rate and rhythm. LUNGS: Clear to auscultation bilaterally. ABDOMEN: Bowel sounds are present. Soft. Complains of diffuse tenderness to palpation. PEG site and incision look good. EXTREMITIES: No peripheral edema. LABORATORY STUDIES: WBC is down dramatically to 9.8 today, hemoglobin 8.4, and platelets 457. Sodium 138, potassium 3.1, BUN 13, and creatinine 0.88. ASSESSMENT AND PLAN: 1. Clostridium difficile colitis. 2. Crohn disease, status post ileostomy takedown, postoperative day 4, clinically stable. The patient is on day 2 of IV Flagyl and p.o. vancomycin. Note, her leukocytosis has dramatically improved. Anticipate the diarrhea will start to improve as well. Continue with the oral vancomycin. Plan would be for 2-week course. We will check to see if this is available here in pill form versus the syrup form since she does not like the taste. Job ID: [id number]
[2019-02-11] MEDS: Enoxaparin Sodium 40 MG/0.4 ML SYRINGE SC SCH (19:39)
--- NOTE | 2019-02-11 23:48 | PRG ---
DATE OF SERVICE: SUBJECTIVE: Ms. Kwan is a 53-year-old female, postop day 4, status post ileostomy takedown. OBJECTIVE: GENERAL: Patient is lying down in bed comfortably with no acute distress. Alert and awake. VITAL SIGNS: Stable. LUNGS: Clear bilaterally. HEART: Regular rate and rhythm. ABDOMEN: Soft. Moderately distended, but nontender to palpation. NEUROLOGY: No focal neurology deficits. PLAN: Will be to continue correct electrolyte. Continue antibiotics. No further surgical indication at this time. Job ID: [id number]
[2019-02-12] MEDS: Fentanyl 100 MCG/2 ML VIAL SLOW IVP PRN ×4 (02:42→19:41)
[2019-02-12] MEDS: Vancomycin HCl 25 MG/ML Oral PO SCH ×4 (03:05→19:40)
[2019-02-12] MEDS: metroNIDAZOLE 500 MG in Premix Bag 1 BAG IVPB SCH ×3 (05:19→22:31)
[2019-02-12] MEDS: Lactinex Tablet PO SCH (08:15)
[2019-02-12] MEDS: Ondansetron PF 4 MG/2 ML Vial IVP PRN ×3 (08:15→22:32)
[2019-02-12] MEDS: Famotidine 20 MG TAB PO SCH (08:15)
[2019-02-12] MEDS: Carvedilol 6.25 MG TAB PO SCH ×2 (08:16→16:49)
[2019-02-12] MEDS: Saccharomyces boulardii 250 MG CAP PO SCH (08:16)
[2019-02-12] MEDS: Famotidine/PF 20 mg/2ml Vial SLOW IVP SCH (08:16)
[2019-02-12 08:24] LABS: Anion Gap 8 mmol/L (10-20); BUN (Urea Nitrogen) 9 mg/dL (9.8-20.1); Calc. Creatinine Clearance 58 mL/min (70-130); Calcium 8.3 mg/dL (7.8-10.44); Carbon Dioxide 19 mmol/L (22-29); Chloride 112 mmol/L (98-107); Estimated GFR-MDRD 68; Glucose 97 mg/dL (70-105); Potassium 3.3 mmol/L (3.5-5.1); Sodium 136 mmol/L (136-145)
[2019-02-12] MEDS ORDERED: Potassium Chloride 20 MEQ TAB PO SCH (09:30)
[2019-02-12] MEDS ORDERED: Escitalopram Oxalate 20 mg Tablet PO SCH (09:45)
--- NOTE | 2019-02-12 11:26 | PRG ---
DATE OF SERVICE: 02/12/2019 SUBJECTIVE: Ms. Kwan is feeling okay. Hers tube feeds were switched to bolus feeding. She had a little bit of nausea, but she seems to be tolerating this well. Still has some swelling in the upper extremities and abdominal wall. The surgical site looks good. Still having loose stools, but thinks they may be firming up a little bit. OBJECTIVE: VITAL SIGNS: Temperature 98.3, pulse 97, blood pressure 136/84, 97% oxygen saturation on 2 L nasal cannula. GENERAL: No acute distress. HEART: Regular rate and rhythm. LUNGS: Clear to auscultation bilaterally. ABDOMEN: Mild generalized tenderness to palpation. Surgical site looks good. EXTREMITIES: She still has some edema to the ankles into the upper extremities. LABORATORY STUDIES: Sodium 136, potassium 3.3, BUN 9, creatinine 0.87. ASSESSMENT AND PLAN: 1. Clostridium difficile colitis. She is on day 3 of IV Flagyl and p.o. vancomycin. Leukocytosis has improved. Continue with the oral vancomycin for a 2-week course. 2. Crohn disease, status post ileostomy takedown. The patient seems to be tolerating bolus feeds postoperatively. Job ID: [id number]
--- NOTE | 2019-02-12 14:03 | PDOC.HOSPP ---
- Subjective Encounter Date: 02/12/19 Encounter Time: 14:01 Subjective: Ms. Kwan was seen today in follow-up of C. Diff colitis. She says she feels a little better today. She has been getting the dietary supplements, and tolerating them so far. She says the abdominal pain has improved some. She also days the dirrahea has slowed down a little. - Objective Vital Signs & Weight: Vital Signs (12 hours) Temp Pulse Resp BP BP Pulse Ox 02/12/19 08:16 136/84 02/12/19 08:00 98.3 F 97 16 146/80 H 97 Weight Admit Weight 110 lb 7 oz Weight 110 lb 0.171 oz I&O: 02/11/19 02/12/19 02/13/19 06:59 06:59 06:59 Intake Total 2660 440 Balance 2660 440 Result Diagrams: 02/11/19 09:45 02/12/19 07:32 Hospitalist ROS - Medication Medications: Active Medications Generic Name Dose Route Start Last Admin Trade Name Freq PRN Reason Stop Dose Admin Acidophilus 1 tab 02/11/19 09:00 02/12/19 08:15 Floranex PO 1 tab DAILY GEORGI Administration Carvedilol 6.25 mg 02/03/19 08:00 02/12/19 08:16 Coreg PO 6.25 mg BID-WM GEORGI Administration Enoxaparin Sodium 40 mg 02/07/19 21:00 02/11/19 19:39 Lovenox SC 40 mg 2100 GEORGI Administration Famotidine 20 mg 02/08/19 09:00 02/12/19 08:15 Pepcid PO 20 mg DAILY GOERGI Administration Famotidine 20 mg 02/08/19 09:00 02/12/19 08:16 Pepcid SLOW IVP Not Given DAILY GEORGI Fentanyl 25 mcg 02/07/19 11:24 02/12/19 02:42 Sublimaze SLOW IVP 25 mcg Q2H PRN Administration Mild Pain (1-3) Fentanyl 50 mcg 02/07/19 11:24 02/12/19 10:35 Sublimaze SLOW IVP 50 mcg Q2H PRN Administration Moderate to Severe Pain (6-10) Metronidazole 500 mg/ Device 100 mls @ 100 mls/hr 02/10/19 22:00 02/12/19 13: 46 IVPB 02/15/19 14:00 100 mls Q8HR GEORGI Administration Ondansetron HCl 4 mg 02/07/19 11:24 02/12/19 12:24 Zofran IVP 4 mg Q6H PRN Administration Nausea/Vomiting Promethazine HCl 12.5 mg 02/07/19 11:24 02/08/19 20:32 Phenergan IM 12.5 mg Q4H PRN Administration Nausea/Vomiting Saccharomyces Ceciliadii 250 mg 02/11/19 09:00 02/12/19 08:16 Florastor PO 250 mg DAILY GEORGI Administration Vancomycin HCl 250 mg 02/10/19 15:00 02/12/19 08:15 First Vancomycin PO 02/24/19 15:01 250 mg 0300,0900,1500,2100 GEORGI Administration - Exam Eye: PERRL, anicteric sclera Neck: supple, symmetric, no JVD, no thyromegaly Heart: RRR, no murmur, no gallops, no rubs, normal peripheral pulses Respiratory: CTAB (with some coarse breath sounds, and occasional rhonchi), no rales, normal chest expansion Gastrointestinal: soft, non-tender, non-distended, normal bowel sounds, no palpable masses, no hepatomegaly, no splenomegaly Extremities: no cyanosis, no clubbing, 1+ LE edema (trace pedal edema in the lower extremities) Hosp A/P (1) Clostridium difficile diarrhea Code(s): A04.72 - ENTEROCOLITIS D/T CLOSTRIDIUM DIFFICILE, NOT SPCF RECUR Status: Acute (2) Crohns disease Code(s): K50.90 - CROHN'S DISEASE, UNSPECIFIED, WITHOUT COMPLICATIONS Status: Acute (3) Status post reversal of ileostomy Code(s): Z98.890 - OTHER SPECIFIED POSTPROCEDURAL STATES Status: Acute (4) COPD not affecting current episode of care Code(s): J44.9 - CHRONIC OBSTRUCTIVE PULMONARY DISEASE, UNSPECIFIED Status: Acute - Plan * C. Diff Colitis- continue Oral Vancomycin and IV Flagyl * Generalized edema- conservative management for now * Nutritional Support- with dietary supplements * Crohn's disease- stable * Continue to encourage ambulation * Hopefully home in a few days
--- NOTE | 2019-02-12 18:35 | PRG ---
DATE OF SERVICE: 02/12/2019 SUBJECTIVE: The patient is seen and examined and noted with the following vital signs. OBJECTIVE: VITAL SIGNS: Afebrile, temperature 98.3 pulse 97, blood pressure 146/80. HEENT: Unremarkable. CARDIOVASCULAR: Positive bowel sounds were heard. RESPIRATORY SYSTEM: Clear to auscultation. DIGESTIVE SYSTEM: Revealed a benign abdomen. EXTREMITIES: No peripheral edema. SKIN EXAMINATION: No new gross rash. LYMPHATICS: No peripheral lymphadenopathy. LABORATORY INVESTIGATION: Showed a hemoglobin 8.4. Chemistry showed a creatinine of 0.87. IMPRESSION: 1. [id number] kidney disease, which is grossly improved. 2. Metabolic acidosis, improving. 3. Mild hypokalemia. PLAN: 1. Replete potassium. 2. Further management to be dependent on the clinical course. Job ID: [id number]
[2019-02-12] MEDS: Enoxaparin Sodium 40 MG/0.4 ML SYRINGE SC SCH (19:41)
--- NOTE | 2019-02-12 19:50 | PRG ---
DATE OF SERVICE: 02/12/2019 SUBJECTIVE: The patient is currently on the medical floor. She is postop day #5, status post ileostomy takedown. She had confirmed Clostridium difficile colitis, which she is currently on oral therapy for. She is tolerating it. She reports overnight her bowel movements have slowed down to just two. Due to the patient's history of Crohn's, she feels that this may actually be her norm. She does have irregular bowel habits. She denies fevers or chills and she is tolerating a diet. OBJECTIVE: VITAL SIGNS: Temperature is 98.3, heart rate 97, blood pressure 146/80, respirations 16, and oxygen saturation 97% on 2 L via nasal cannula. GENERAL: The patient is resting comfortably in bed. She is awake, alert, and oriented x3. HEENT: Unremarkable. LUNGS: Clear to auscultation with good inspiratory and expiratory effort. HEART: Regular rate and rhythm. ABDOMEN: Soft, flat, and nontender with active bowel sounds. EXTREMITIES: Show 1 to 2+ edema. LABORATORY FINDINGS: Sodium 136, potassium 3.3, chloride 112, CO2 of 19, BUN 9, creatinine 0.87, and glucose 97. ASSESSMENT: 1. Status post ileostomy takedown, postop day #5. 2. Acute Clostridium difficile colitis, undergoing appropriate treatment. 3. Hypokalemia. PLAN: Plan will be to continue antibiotic therapy as prescribed by Primary Team. Correct abnormal electrolytes. There are no further surgical indications for this patient at this time. Job ID: [id number]
--- NOTE | 2019-02-13 00:50 | PRG ---
DATE OF SERVICE: 02/13/2019 SUBJECTIVE: Ms. Kwan is a 53-year-old female, postoperative day 5, status post ileostomy takedown and C diff treated. The patient is lying down in bed, comfortable with no acute distress. Alert and awake. She reports her diarrhea is slowing down around 4 times today. OBJECTIVE: VITAL SIGNS: Stable. LUNGS: Clear bilaterally. HEART: Regular rate and rhythm. ABDOMEN: Soft, nondistended. NEUROLOGY: No focal neurology deficits. PLAN: Will be to continue supportive care. Continue antibiotic. No further surgical indication at this time per Dr. Mari. Job ID: [id number]
[2019-02-13] MEDS: Vancomycin HCl 25 MG/ML Oral PO SCH ×4 (02:52→20:34)
[2019-02-13] MEDS: Fentanyl 100 MCG/2 ML VIAL SLOW IVP PRN ×5 (03:01→21:24)
[2019-02-13] MEDS: metroNIDAZOLE 500 MG in Premix Bag 1 BAG IVPB SCH ×2 (05:29→14:34)
[2019-02-13 08:13] LABS: #Eosinphils 0.5 thou/uL (0.0-0.7); #Lymphocytes 3.3 thou/uL (1.20-3.40); #Monocytes 0.9 thou/uL (0.11-0.59); #Neutrophils 7.1 thou/uL (1.40-6.50); %Basophils 0.3 % (0.0-1.0); %Eosinophils 4.5 % (0.0-10.0); %Lymphocytes 27.5 % (21.0-51.0); %Monocytes 7.9 % (0.0-10.0); %Neutrophils 59.9 % (42.0-75.0); Hemoglobin 8.8 g/dL (12.0-16.0); Mean Corpuscular HGB CONC 33.7 g/dL (32.0-36.0); Mean Corpuscular Hemoglobin 33.7 pg (27.0-31.0); Mean Corpuscular Volume 99.9 fL (78.0-98.0); Mean Platelet Volume 6.5 fL (7.4-10.4); Platelet Count 549 thou/uL (130-400); RBC Distribution Width 13.3 % (11.5-14.5); White Blood Cell (WBC) Count 11.8 thou/uL (4.8-10.8)
[2019-02-13 08:31] LABS: Anion Gap 9 mmol/L (10-20); BUN (Urea Nitrogen) 6 mg/dL (9.8-20.1); Calc. Creatinine Clearance 60 mL/min (70-130); Calcium 8.4 mg/dL (7.8-10.44); Carbon Dioxide 20 mmol/L (22-29); Chloride 110 mmol/L (98-107); Estimated GFR-MDRD 71; Glucose 83 mg/dL (70-105); Potassium 3.2 mmol/L (3.5-5.1); Sodium 136 mmol/L (136-145)
--- NOTE | 2019-02-13 08:56 | PDOC.GSPN ---
Surgery Progress Note: Subj - Subjective Patient reports: feels better, diarrhea Narrative: Mrs. Kwan is a 53 year old female with a history of Crohn's Disease who presents today Post-op day 6 after reversal of ileostomy and being treated for ( +) C. Difficile. The patient feels okay today and is currently resting in bed on 0.5 L oxygen per nasal cannula. She had 2 episodes of diarrhea last night that have decreased in volume and frequency. She reports 5/10 pain near her ostomy site and some intermittent nausea. The patient is able to ambulate around to the bathroom, but not much more than that. The last thing she ate by mouth was half a pancake and some law 3 days ago. Since then, she has only been receiving her supplements (Jevity & Ensure) via feeding tube as she reports not being able to tolerate the Ensure orally. She denies vomiting, chest pain, dyspnea, fevers, and chills. Surgery Progress Note: Obj - Vital signs Vital signs: Vital Signs - Most Recent Temp Pulse Resp BP Pulse Ox 98.6 F 90 16 122/77 97 02/13/19 07:28 02/13/19 07:28 02/13/19 07:28 02/13/19 07:28 02/13/19 07:28 - Physical Exam General: other (Mild discomfort from ostomy site and intermittent nausea.) ENT: normal mucosa Neck: no lymphadectomy, no masses Cardiovascular: regular rate and rhythm, no murmur Respiratory: clear to auscultation, normal respiratory effort, breath sounds present Abdomen: soft (Mild edema in abdomen. No fluid wave.), positive bowel sounds (A bit muffled.), appropriately tender Musculoskeletal: other (1+ lower extremity edema to the level of her ankles. 1+ upper extremity edema at the level of her forearms. Pedal pulses are 2+ bilaterally and symmetrically.) Psychiatric: oriented to time, oriented to person, oriented to place, speech is normal Wound: dressing clean,dry,intact, healing well (Ostomy site dressing was changed at [place], which had a small amount of serous drainage, but no erythema or purulent drainage. Midline inscision healing well without erythema or drainage as well.) Surgery Progress Note: Results - Labs Result Diagrams: 02/13/19 08:01 02/13/19 08:01 Lab results: Laboratory Results - last 24 hr 02/13/19 02/13/19 08:01 08:01 WBC 11.8 H RBC 2.60 L Hgb 8.8 L Hct 26.0 L MCV 99.9 H MCH 33.7 H MCHC 33.7 RDW 13.3 Plt Count 549 H MPV 6.5 L Neutrophils % 59.9 Lymphocytes % 27.5 Monocytes % 7.9 Eosinophils % 4.5 Basophils % 0.3 Neutrophils # 7.1 H Lymphocytes # 3.3 Monocytes # 0.9 H Eosinophils # 0.5 Basophils # 0.0 Sodium 136 Potassium 3.2 L Chloride 110 H Carbon Dioxide 20 L Anion Gap 9 L BUN 6 L Creatinine 0.83 Estimated GFR (MDRD) 71 Glucose 83 Calcium 8.4 Surgery Progress Note: A/P - Plan Plan: Mrs. Kwan is a 53 year old female with a history of Crohn's Disease who presents today Post-op day 6 after reversal of ileostomy and being treated for ( +) C. Difficile. Post-Op Reversal of ileostomy -Continue supplements and encourage increasing oral diet as tolerated -Will continue to monitor nausea -Will monitor edema in extremities -Encourage use of spirometer and ambulation/walking Recurrent Diarrhea with (+) C. Difficile -Continue to treat with Vancomycin PO and monitor diarrhea Crohn's Disease -Stable Addendum - Physician - Physician Attestation Date/Time: 02/13/19 9191 I personally performed or re-performed the physical examination and medical decision making. I have verified all student documentation or findings, including history, physical exam and/or medical decision making.
[2019-02-13] MEDS: Saccharomyces boulardii 250 MG CAP PO SCH (09:29)
[2019-02-13] MEDS: Famotidine 20 MG TAB PO SCH (09:29)
[2019-02-13] MEDS: Escitalopram Oxalate 20 mg Tablet PO SCH (09:30)
[2019-02-13] MEDS: Carvedilol 6.25 MG TAB PO SCH ×2 (09:30→16:56)
[2019-02-13] MEDS: Lactinex Tablet PO SCH (09:30)
[2019-02-13] MEDS: Famotidine/PF 20 mg/2ml Vial SLOW IVP SCH (09:31)
--- NOTE | 2019-02-13 11:51 | PDOC.GSPN ---
Surgery Progress Note: Subj - Subjective Patient reports: no new complaints, feels better Surgery Progress Note: Obj - Vital signs Vital signs: Vital Signs - Most Recent Temp Pulse Resp BP Pulse Ox 98.6 F 90 16 122/77 97 02/13/19 07:28 02/13/19 07:28 02/13/19 07:28 02/13/19 07:28 02/13/19 07:28 - Physical Exam General: no distress Cardiovascular: regular rate and rhythm Respiratory: clear to auscultation Wound: healing well Surgery Progress Note: Results - Labs Result Diagrams: 02/13/19 08:01 02/13/19 08:01 Lab results: Laboratory Results - last 24 hr 02/13/19 02/13/19 08:01 08:01 WBC 11.8 H RBC 2.60 L Hgb 8.8 L Hct 26.0 L MCV 99.9 H MCH 33.7 H MCHC 33.7 RDW 13.3 Plt Count 549 H MPV 6.5 L Neutrophils % 59.9 Lymphocytes % 27.5 Monocytes % 7.9 Eosinophils % 4.5 Basophils % 0.3 Neutrophils # 7.1 H Lymphocytes # 3.3 Monocytes # 0.9 H Eosinophils # 0.5 Basophils # 0.0 Sodium 136 Potassium 3.2 L Chloride 110 H Carbon Dioxide 20 L Anion Gap 9 L BUN 6 L Creatinine 0.83 Estimated GFR (MDRD) 71 Glucose 83 Calcium 8.4 Surgery Progress Note: A/P - Problem (1) Crohns disease Current Visit: Yes Code(s): K50.90 - CROHN'S DISEASE, UNSPECIFIED, WITHOUT COMPLICATIONS Status: Acute
--- NOTE | 2019-02-13 17:39 | PDOC.HOSPP ---
- Subjective Encounter Date: 02/13/19 Encounter Time: 17:37 Subjective: Ms. Kwan was seen today in follow-up of C. Diff Colitis. She says she is beginning to feel better today. She still had 4 loose stools. - Objective Vital Signs & Weight: Vital Signs (12 hours) Temp Pulse Resp BP BP Pulse Ox 02/13/19 16:56 131/63 02/13/19 08:00 97 02/13/19 07:28 98.6 F 90 16 122/77 97 Weight Admit Weight 110 lb 7 oz Weight 110 lb 0.171 oz I&O: 02/12/19 02/13/19 02/14/19 06:59 06:59 06:59 Intake Total 440 200 380 Output Total 700 Balance 440 -500 380 Result Diagrams: 02/13/19 08:01 02/13/19 08:01 Hospitalist ROS - Medication Medications: Active Medications Generic Name Dose Route Start Last Admin Trade Name Freq PRN Reason Stop Dose Admin Acidophilus 1 tab 02/11/19 09:00 02/13/19 09:30 Floranex PO 1 tab DAILY GEORGI Administration Carvedilol 6.25 mg 02/03/19 08:00 02/13/19 16:56 Coreg PO 6.25 mg BID-WM GEORGI Administration Enoxaparin Sodium 40 mg 02/07/19 21:00 02/12/19 19:41 Lovenox SC 40 mg 2100 GEORGI Administration Escitalopram Oxalate 20 mg 02/13/19 09:00 02/13/19 09:30 Lexapro PO 20 mg DAILY GEORGI Administration Famotidine 20 mg 02/08/19 09:00 02/13/19 09:29 Pepcid PO 20 mg DAILY GEORGI Administration Famotidine 20 mg 02/08/19 09:00 02/13/19 09:31 Pepcid SLOW IVP Not Given DAILY GEORGI Fentanyl 25 mcg 02/07/19 11:24 02/13/19 03:01 Sublimaze SLOW IVP 25 mcg Q2H PRN Administration Mild Pain (1-3) Fentanyl 50 mcg 02/07/19 11:24 02/13/19 13:38 Sublimaze SLOW IVP 50 mcg Q2H PRN Administration Moderate to Severe Pain (6-10) Metronidazole 500 mg/ Device 100 mls @ 100 mls/hr 02/10/19 22:00 02/13/19 14: 34 IVPB 02/15/19 14:00 100 mls Q8HR GEORGI Administration Ondansetron HCl 4 mg 02/07/19 11:24 02/12/19 22:32 Zofran IVP 4 mg Q6H PRN Administration Nausea/Vomiting Promethazine HCl 12.5 mg 02/07/19 11:24 02/08/19 20:32 Phenergan IM 12.5 mg Q4H PRN Administration Nausea/Vomiting Saccharomyces Boulardii 250 mg 02/11/19 09:00 02/13/19 09:29 Florastor PO 250 mg DAILY GEORGI Administration Vancomycin HCl 250 mg 02/10/19 15:00 02/13/19 14:34 First Vancomycin PO 02/24/19 15:01 250 mg 0300,0900,1500,2100 GEORGI Administration - Exam Eye: PERRL, anicteric sclera Heart: RRR, no murmur, no gallops, no rubs, normal peripheral pulses Respiratory: CTAB, no wheezes, no rales, no ronchi, normal chest expansion Gastrointestinal: soft, normal bowel sounds, no palpable masses, no hepatomegaly , tender to palpation (+ Mild right lower quadrant tenderness, Incision site is clean, no drainage) Extremities: 1+ LE edema (+ upper and lower extremity edema) Hosp A/P (1) Clostridium difficile diarrhea Code(s): A04.72 - ENTEROCOLITIS D/T CLOSTRIDIUM DIFFICILE, NOT SPCF RECUR Status: Acute (2) Crohns disease Code(s): K50.90 - CROHN'S DISEASE, UNSPECIFIED, WITHOUT COMPLICATIONS Status: Acute (3) Status post reversal of ileostomy Code(s): Z98.890 - OTHER SPECIFIED POSTPROCEDURAL STATES Status: Acute (4) COPD not affecting current episode of care Code(s): J44.9 - CHRONIC OBSTRUCTIVE PULMONARY DISEASE, UNSPECIFIED Status: Acute - Plan * C. Diff Colitis- continue Oral Vancomycin and IV Flagyl- she continues to slowly improve * Generalized edema- improving * Nutritional Support- continue Supplementation * Crohn's disease- stable * Continue to encourage ambulation
[2019-02-13] MEDS ORDERED: Potassium Chloride 20 MEQ TAB PO SCH ×2 (17:45→22:00)
--- NOTE | 2019-02-13 19:20 | PRG ---
DATE OF SERVICE: 02/13/2019 SUBJECTIVE: Ms. Kwan had stools about 4 today, still somewhat soft, loose, but definitely not as frequent. She has some abdominal pain mainly around her ostomy site was. MEDICATIONS: 1. Floranex. 2. DuoNeb. 3. Coreg. 4. Lovenox. 5. Lexapro. 6. Pepcid. 7. P.r.n. Tylenol. 8. Flagyl IV. 9. Zofran. 10. Florastor. 11. Vancomycin p.o. PHYSICAL EXAMINATION: GENERAL: She is resting comfortably in bed. She states she is up in chair for 4 hours today. She is walking the halls. VITAL SIGNS: Temperature is 98.6, blood [id number]/80, and respirations 18. LUNGS: Clear. ABDOMEN: Soft and nontender. EXTREMITIES: No clubbing, cyanosis, or edema. LABORATORY DATA: White count is down to 11.8 from 22,000, hemoglobin is 8.8, platelet count is 549. Sodium 136, potassium 3.2, BUN and creatinine are 6 and 0.18. ASSESSMENT: 1. Clostridium difficile. It is really unclear if this is a colonization from her colon. Before she even came in, she is having no stool output through her colon that as an outpatient. She only had ileostomy output. The diarrhea started the day after her ostomy was taken down. Her ostomy had been checked previously. Her Clostridium difficile was negative. In light of her diarrhea and leukocytosis, though I would just treat her. I think she can come off the IV Flagyl now. We will continue with p.o. vancomycin. 2. Hypokalemia, being replaced. 3. Crohn's. No evidence of active disease on recent ileoscopy. 4. 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 5. Thrombocytosis, presumably from inflammation, but it is not clear. We will plan to continue p.o. vancomycin and probiotics and stop the IV Flagyl. Follow along with you. Job ID: [id number] MTDD
[2019-02-13] MEDS: Enoxaparin Sodium 40 MG/0.4 ML SYRINGE SC SCH (20:34)
[2019-02-13] MEDS: Ondansetron PF 4 MG/2 ML Vial IVP PRN (21:24)
[2019-02-14] MEDS: Vancomycin HCl 25 MG/ML Oral PO SCH ×4 (03:29→20:18)
[2019-02-14] MEDS: Fentanyl 100 MCG/2 ML VIAL SLOW IVP PRN ×2 (03:32→08:48)
--- NOTE | 2019-02-14 03:53 | PRG ---
DATE OF SERVICE: 02/13/2019 SUBJECTIVE: The patient admitted with the following vital signs. OBJECTIVE: VITAL SIGNS: Afebrile, temperature 96.6, pulse 90, respiratory rate 16, O2 sat of 97%, blood pressure 132/77. HEENT: Job ID: [id number]
[2019-02-14 06:42] LABS: Anion Gap 9 mmol/L (10-20); BUN (Urea Nitrogen) 6 mg/dL (9.8-20.1); Calc. Creatinine Clearance 58 mL/min (70-130); Calcium 8.4 mg/dL (7.8-10.44); Carbon Dioxide 22 mmol/L (22-29); Chloride 110 mmol/L (98-107); Estimated GFR-MDRD 68; Glucose 124 mg/dL (70-105); Potassium 3.7 mmol/L (3.5-5.1); Sodium 137 mmol/L (136-145)
--- NOTE | 2019-02-14 07:23 | PDOC.GSPN ---
Surgery Progress Note: Subj - Subjective Patient reports: no new complaints, diarrhea Narrative: Mrs. Kwan is a 53 year old female with a history of Crohn's disease who presents today post-op day 7 from reversal of ileostomy and diarrhea that was (+ ) for C. Difficile. The patient is feeling better today with decreased nausea and 4 stools last night that were more formed, although still loose. She reports mild pain at her ostomy site and consistent use of the spirometer. She is continuing the nutritional supplements, but has still not consumed anything by mouth. She is still complaining of uncomfortable swelling in her forearms and feet that has not improved since yesterday. She denies chest pain, dyspnea, vomiting, headaches, and dizziness. Surgery Progress Note: Obj - Vital signs Vital signs: Vital Signs - Most Recent Temp Pulse Resp BP Pulse Ox 98.2 F 84 18 134/82 98 02/13/19 20:00 02/13/19 20:00 02/13/19 20:00 02/13/19 20:00 02/13/19 20:00 - Physical Exam General: no distress ENT: normal mucosa Neck: no lymphadectomy, no masses Cardiovascular: regular rate and rhythm, no murmur Respiratory: clear to auscultation, normal respiratory effort, breath sounds present Abdomen: soft, positive bowel sounds, appropriately tender Musculoskeletal: other (1+ edema bilaterally at ankle level and upper extremeties in her forearms. 2+ radial and pedal pulses.) Psychiatric: oriented to time, oriented to person, oriented to place Wound: dressing clean,dry,intact, healing well Surgery Progress Note: Results - Labs Result Diagrams: 02/13/19 08:01 02/14/19 06:02 Lab results: Laboratory Results - last 24 hr 02/14/19 06:02 Sodium 137 Potassium 3.7 Chloride 110 H Carbon Dioxide 22 Anion Gap 9 L BUN 6 L Creatinine 0.87 Estimated GFR (MDRD) 68 Glucose 124 H Calcium 8.4 Surgery Progress Note: A/P - Plan Plan: Mrs. Kwan is a 53 year old female with a history of Crohn's disease who presents today post-op day 7 from reversal of ileostomy and diarrhea that was (+ ) for C. Difficile. Post-Op Ileostomy reversal -Continue nutritional supplements (Ensure; Jevity). -Continue to promote ambulation and oral intake as tolerated. -Monitor swelling. May consider compression socks if peripheral edema does not improve. -Wound care. Diarrhea with (+) C. Difficile -IV Flagyl was discontinued yesterday per Dr. Cespedes. -Will continue Vancomycin PO. Crohn's Disease -Stable Addendum - Physician - Physician Attestation Date/Time: 02/14/19 1020 I personally performed or re-performed the physical examination and medical decision making. I have verified all student documentation or findings, including history, physical exam and/or medical decision making. Doing better although still having loose stools. Probably needs to stay until diarrhea has stabilized more before discharge.
[2019-02-14] MEDS: Escitalopram Oxalate 20 mg Tablet PO SCH (08:44)
[2019-02-14] MEDS: Carvedilol 6.25 MG TAB PO SCH ×2 (08:44→16:33)
[2019-02-14] MEDS: Famotidine 20 MG TAB PO SCH (08:45)
[2019-02-14] MEDS: Saccharomyces boulardii 250 MG CAP PO SCH (08:45)
[2019-02-14] MEDS: Lactinex Tablet PO SCH (08:45)
[2019-02-14] MEDS: Famotidine/PF 20 mg/2ml Vial SLOW IVP SCH (08:45)
[2019-02-14] MEDS: Ondansetron PF 4 MG/2 ML Vial IVP PRN (09:05)
[2019-02-14] MEDS ORDERED: Acetaminophen 1,000 MG in Premix Bag 1 BAG IVPB PRN (13:19)
[2019-02-14] MEDS ORDERED: traMADol HCl 50 MG TAB PO PRN (13:19)
[2019-02-14] MEDS: traMADol HCl 50 MG TAB PO PRN ×2 (14:00→20:49)
--- NOTE | 2019-02-14 15:28 | PDOC.HOSPP ---
- Subjective Encounter Date: 02/14/19 Encounter Time: 15:26 Subjective: Ms. Kwan was seen today in follow-up of C. Diff Colitis. She says that she is still having diarrhea. She has minimal abdominal pain. - Objective Vital Signs & Weight: Vital Signs (12 hours) Temp Pulse Resp BP BP Pulse Ox 02/14/19 08:44 113/74 02/14/19 08:00 95 02/14/19 07:35 98.2 F 88 95 H 113/74 16 L Weight Admit Weight 110 lb 7 oz Weight 110 lb 0.171 oz I&O: 02/13/19 02/14/19 02/15/19 06:59 06:59 06:59 Intake Total 200 1020 Output Total 700 Balance -500 1020 Result Diagrams: 02/13/19 08:01 02/14/19 06:02 Hospitalist ROS - Medication Medications: Active Medications Generic Name Dose Route Start Last Admin Trade Name Freq PRN Reason Stop Dose Admin Acidophilus 1 tab 02/11/19 09:00 02/14/19 08:45 Floranex PO 1 tab DAILY GEORGI Administration Carvedilol 6.25 mg 02/03/19 08:00 02/14/19 08:44 Coreg PO 6.25 mg BID-WM GEORGI Administration Enoxaparin Sodium 40 mg 02/07/19 21:00 02/13/19 20:34 Lovenox SC 40 mg 2100 GEORGI Administration Escitalopram Oxalate 20 mg 02/13/19 09:00 02/14/19 08:44 Lexapro PO 20 mg DAILY GEORGI Administration Famotidine 20 mg 02/08/19 09:00 02/14/19 08:45 Pepcid PO 20 mg DAILY GEORGI Administration Famotidine 20 mg 02/08/19 09:00 02/14/19 08:45 Pepcid SLOW IVP Not Given DAILY GEORGI Fentanyl 25 mcg 02/07/19 11:24 02/13/19 03:01 Sublimaze SLOW IVP 25 mcg Q2H PRN Administration Mild Pain (1-3) Fentanyl 50 mcg 02/07/19 11:24 02/14/19 08:48 Sublimaze SLOW IVP 50 mcg Q2H PRN Administration Moderate to Severe Pain (6-10) Ondansetron HCl 4 mg 02/07/19 11:24 02/14/19 09:05 Zofran IVP 4 mg Q6H PRN Administration Nausea/Vomiting Promethazine HCl 12.5 mg 02/07/19 11:24 02/08/19 20:32 Phenergan IM 12.5 mg Q4H PRN Administration Nausea/Vomiting Saccharomyces Vivianai 250 mg 02/11/19 09:00 02/14/19 08:45 Florastor PO 250 mg DAILY GEORGI Administration Tramadol HCl 100 mg 02/14/19 13:19 02/14/19 14:00 Ultram PO 100 mg Q6H PRN Administration Moderate Pain (4-6) Vancomycin HCl 250 mg 02/10/19 15:00 02/14/19 14:01 First Vancomycin PO 02/24/19 15:01 250 mg 0300,0900,1500,2100 GEORGI Administration - Exam Eye: PERRL, anicteric sclera Heart: RRR, no murmur, no gallops, no rubs, normal peripheral pulses Respiratory: CTAB, no wheezes, no rales, rhonchi (+ occasional rhonchi) Gastrointestinal: soft, non-distended, normal bowel sounds, no palpable masses, no hepatomegaly, no splenomegaly, tender to palpation (+ mild right mid abdominal tenderness) Extremities: 1+ LE edema (edema in both upper and lower extemities- but improving) Hosp A/P (1) Clostridium difficile diarrhea Code(s): A04.72 - ENTEROCOLITIS D/T CLOSTRIDIUM DIFFICILE, NOT SPCF RECUR Status: Acute (2) Crohns disease Code(s): K50.90 - CROHN'S DISEASE, UNSPECIFIED, WITHOUT COMPLICATIONS Status: Acute (3) Status post reversal of ileostomy Code(s): Z98.890 - OTHER SPECIFIED POSTPROCEDURAL STATES Status: Acute (4) COPD not affecting current episode of care Code(s): J44.9 - CHRONIC OBSTRUCTIVE PULMONARY DISEASE, UNSPECIFIED Status: Acute - Plan * C. Diff Colitis- improving- Flagyl has been discontinued- will add Questran for continued diarrhea * Generalized edema- improving * Nutritional Support- continue Supplementation * Crohn's disease- stable * Continue ambulation
--- NOTE | 2019-02-14 17:57 | PRG ---
DATE OF SERVICE: 02/14/2019 SUBJECTIVE: Ms. Kwan feels better with 7 stools per day. She does note that she is getting tube feeds at night. She wonders that if that is part of it. She has also looks like she has up like a lot of junk food in her counter, which she states she is not eating. Most of the fluids are in tray or all sodas or Gatorade. OBJECTIVE: VITAL SIGNS: Temperature is 98.2. She has been afebrile since her surgery. Pulse is 88, blood pressure is 122/70. LUNGS: Clear. HEART: Regular rate and rhythm without clicks, rubs, or murmurs. ABDOMEN: Soft, mildly tender without rebound. There is some voluntary guarding. LABORATORY DATA: Sodium 137, potassium 3.7, BUN and creatinine of 6 and 0.87. No other labs done today. CMV screen done on admission was negative. Histoplasmosis urine that was negative. ASSESSMENT: Diarrhea is persisting. She has been on antibiotics for Clostridium difficile for about 6 days now. I do not think the diarrhea she is having is Clostridium difficile related. RECOMMENDATIONS: Hold tube feeds. Hold junk foods. Put her on full liquid diet and check stool for fecal lactoferrin. If diarrhea output does not improve, colonoscopy if okay with General surgery. Job ID: [id number]
[2019-02-14] MEDS: Enoxaparin Sodium 40 MG/0.4 ML SYRINGE SC SCH (20:18)
[2019-02-14] MEDS: Cholestyramine/Aspartame 4 gm Packet PO SCH (22:37)
[2019-02-15] MEDS: Vancomycin HCl 25 MG/ML Oral PO SCH ×4 (03:14→20:37)
[2019-02-15 05:52] LABS: #Basophils 0.1 thou/uL (0.0-0.2); #Eosinphils 0.7 thou/uL (0.0-0.7); #Lymphocytes 3.6 thou/uL (1.20-3.40); #Neutrophils 5.2 thou/uL (1.40-6.50); %Basophils 0.6 % (0.0-1.0); %Eosinophils 6.6 % (0.0-10.0); %Lymphocytes 34.3 % (21.0-51.0); %Monocytes 9.3 % (0.0-10.0); %Neutrophils 49.3 % (42.0-75.0); Hemoglobin 8.4 g/dL (12.0-16.0); Mean Corpuscular HGB CONC 33.5 g/dL (32.0-36.0); Mean Corpuscular Hemoglobin 33.7 pg (27.0-31.0); Mean Platelet Volume 7.3 fL (7.4-10.4); Platelet Count 592 thou/uL (130-400); RBC Distribution Width 13.9 % (11.5-14.5); Red Blood Cell (RBC) Count 2.48 mill/uL (4.20-5.40); White Blood Cell (WBC) Count 10.6 thou/uL (4.8-10.8)
[2019-02-15 06:17] LABS: Anion Gap 11 mmol/L (10-20); BUN (Urea Nitrogen) 5 mg/dL (9.8-20.1); Calc. Creatinine Clearance 57 mL/min (70-130); Calcium 8.4 mg/dL (7.8-10.44); Carbon Dioxide 21 mmol/L (22-29); Chloride 107 mmol/L (98-107); Estimated GFR-MDRD 67; Glucose 75 mg/dL (70-105); Magnesium 1.2 mg/dL (1.6-2.6); Potassium 3.4 mmol/L (3.5-5.1); Sodium 136 mmol/L (136-145)
--- NOTE | 2019-02-15 07:09 | PDOC.GSPN ---
Surgery Progress Note: Subj - Subjective Patient reports: feels better Narrative: Mrs. Kwan is a 53 year old female with a history of Crohn's disease who is Post- Op day 8 from ileostomy reversal and is continuing oral Vancomycin for diarrhea with (+) C. Difficile. She states feeling much better this morning. She only had 2 bowel movements last night (8pm last night & 4am this morning) that were more formed, although still loose. Pain is 1/10. She has been changed to clear liquid diet, but asks if her diet could be advanced again since her appetite has increased and she mentioned eating some law yesterday. She is receiving Jevity supplements (no Ensure), has been using her spirometer, and is ambulating only to the bathroom with mild dyspnea for which she uses 0.5 L O2 per nasal cannula as needed. Patient denies chest pain, fevers, chills, nausea, vomiting, and changes in urination. Surgery Progress Note: Obj - Vital signs Vital signs: Vital Signs - Most Recent Temp Pulse Resp BP Pulse Ox 99.2 F 81 20 128/78 94 L 02/14/19 20:00 02/14/19 20:00 02/14/19 20:00 02/14/19 20:00 02/14/19 20:00 - Physical Exam General: no distress ENT: normal mucosa Neck: no lymphadectomy, no masses Cardiovascular: regular rate and rhythm, no murmur Respiratory: clear to auscultation, breath sounds present Abdomen: soft, nondistended, positive bowel sounds, appropriately tender Integumentary: no rash (Small ecchymoses on arms from needle sticks (bilateral)) Musculoskeletal: other (1+ edema in feet bilaterally. Edema in forearms has improved. 2+ pedal pulses bilaterally.) Psychiatric: oriented to time, oriented to person, oriented to place Wound: dressing clean,dry,intact, healing well (No signs of erythema, purulent drainage, or swelling on either incision.) Surgery Progress Note: Results - Labs Result Diagrams: 02/15/19 05:08 02/15/19 05:08 Lab results: Laboratory Results - last 24 hr 02/15/19 02/15/19 05:08 05:08 WBC 10.6 RBC 2.48 L Hgb 8.4 L Hct 25.0 L MCV 101.0 H MCH 33.7 H MCHC 33.5 RDW 13.9 Plt Count 592 H MPV 7.3 L Neutrophils % 49.3 Lymphocytes % 34.3 Monocytes % 9.3 Eosinophils % 6.6 Basophils % 0.6 Neutrophils # 5.2 Lymphocytes # 3.6 H Monocytes # 1.0 H Eosinophils # 0.7 Basophils # 0.1 Sodium 136 Potassium 3.4 L Chloride 107 Carbon Dioxide 21 L Anion Gap 11 BUN 5 L Creatinine 0.88 Estimated GFR (MDRD) 67 Glucose 75 Calcium 8.4 Phosphorus 3.0 Magnesium 1.2 L Surgery Progress Note: A/P - Plan Plan: Mrs. Kwan is a 53 year old female with a history of Crohn's disease who is Post- Op day 8 from ileostomy reversal and is continuing oral Vancomycin for diarrhea with (+) C. Difficile. Post-Op Ileostomy Reversal -On clear liquid diet. -Need to encourage increased physical activity and ambulation. Continue using spirometer. -Continue to monitor extremity edema conservatively. -Wound care. Diarrhea with (+) C. Difficle -Currently receiving Oral Vancomycin. Flagyl was discontinued by Dr. Cespedes. Dr. Marvin started her on Cholestyramine. -Will continue to monitor diarrhea and hydration. Chron's disease -Stable Addendum - Physician - Physician Attestation Date/Time: 02/15/19 0563 I personally performed or re-performed the physical examination and medical decision making. I have verified all student documentation or findings, including history, physical exam and/or medical decision making. Regular diet. Decrease junk food
[2019-02-15] MEDS: Saccharomyces boulardii 250 MG CAP PO SCH (09:26)
[2019-02-15] MEDS: Famotidine 20 MG TAB PO SCH (09:26)
[2019-02-15] MEDS: Lactinex Tablet PO SCH (09:26)
[2019-02-15] MEDS: Escitalopram Oxalate 20 mg Tablet PO SCH (09:27)
[2019-02-15] MEDS: Carvedilol 6.25 MG TAB PO SCH ×2 (09:27→17:25)
[2019-02-15] MEDS: Cholestyramine/Aspartame 4 gm Packet PO SCH ×2 (09:28→21:46)
[2019-02-15] MEDS: Famotidine/PF 20 mg/2ml Vial SLOW IVP SCH (09:28)
[2019-02-15] MEDS ORDERED: Potassium Chloride 20 MEQ TAB PO SCH (09:30)
[2019-02-15] MEDS ORDERED: Magnesium 2 GM/50 ML 2 GM in Premix Bag 1 BAG IVPB SCH (09:30)
[2019-02-15] MEDS: traMADol HCl 50 MG TAB PO PRN ×2 (09:34→17:24)
--- NOTE | 2019-02-15 16:28 | PDOC.HOSPP ---
- Subjective Encounter Date: 02/15/19 Encounter Time: 13:30 Subjective: Ms. Kwan was seen today in follow-up of C. diff. She says her stools are beginning to firm up. She had only one loose stool today. - Objective Vital Signs & Weight: Vital Signs (12 hours) Temp Pulse Resp BP BP Pulse Ox 02/15/19 09:27 127/78 02/15/19 08:00 94 L 02/15/19 07:18 98.2 F 79 18 127/78 94 L Weight Admit Weight 110 lb 7 oz Weight 110 lb 0.171 oz I&O: 02/14/19 02/15/19 02/16/19 06:59 06:59 06:59 Intake Total 1020 2350 Balance 1020 2350 Result Diagrams: 02/15/19 05:08 02/15/19 05:08 Hospitalist ROS - Medication Medications: Active Medications Generic Name Dose Route Start Last Admin Trade Name Freq PRN Reason Stop Dose Admin Acidophilus 1 tab 02/11/19 09:00 02/15/19 09:26 Floranex PO 1 tab DAILY GEORGI Administration Carvedilol 6.25 mg 02/03/19 08:00 02/15/19 09:27 Coreg PO 6.25 mg BID-WM GEORGI Administration Cholestyramine Resin 4 gm 02/14/19 22:00 02/15/19 09:28 Questran Light PO 4 gm 1000,2200 GEORGI Administration Enoxaparin Sodium 40 mg 02/07/19 21:00 02/14/19 20:18 Lovenox SC 40 mg 2100 GEORGI Administration Escitalopram Oxalate 20 mg 02/13/19 09:00 02/15/19 09:27 Lexapro PO 20 mg DAILY GEORGI Administration Famotidine 20 mg 02/08/19 09:00 02/15/19 09:26 Pepcid PO 20 mg DAILY GEORGI Administration Famotidine 20 mg 02/08/19 09:00 02/15/19 09:28 Pepcid SLOW IVP Not Given DAILY GEORGI Fentanyl 25 mcg 02/07/19 11:24 02/13/19 03:01 Sublimaze SLOW IVP 25 mcg Q2H PRN Administration Mild Pain (1-3) Fentanyl 50 mcg 02/07/19 11:24 02/14/19 08:48 Sublimaze SLOW IVP 50 mcg Q2H PRN Administration Moderate to Severe Pain (6-10) Ondansetron HCl 4 mg 02/07/19 11:24 02/14/19 09:05 Zofran IVP 4 mg Q6H PRN Administration Nausea/Vomiting Promethazine HCl 12.5 mg 02/07/19 11:24 02/08/19 20:32 Phenergan IM 12.5 mg Q4H PRN Administration Nausea/Vomiting Saccharomyces Ceciliadii 250 mg 02/11/19 09:00 02/15/19 09:26 Florastor PO 250 mg DAILY GEORGI Administration Tramadol HCl 100 mg 02/14/19 13:19 02/15/19 09:34 Ultram PO 100 mg Q6H PRN Administration Moderate Pain (4-6) Vancomycin HCl 250 mg 02/10/19 15:00 02/15/19 15:10 First Vancomycin PO 02/24/19 15:01 250 mg 0300,0900,1500,2100 GEORGI Administration - Exam Eye: PERRL, anicteric sclera Heart: RRR, no murmur, no gallops, no rubs, normal peripheral pulses Respiratory: CTAB, no wheezes, no rales, no ronchi, normal chest expansion, no tachypnea, normal percussion Gastrointestinal: soft, non-tender, non-distended, normal bowel sounds, no palpable masses, no hepatomegaly, no splenomegaly Extremities: no cyanosis, no edema Hosp A/P (1) Clostridium difficile diarrhea Code(s): A04.72 - ENTEROCOLITIS D/T CLOSTRIDIUM DIFFICILE, NOT SPCF RECUR Status: Acute (2) Crohns disease Code(s): K50.90 - CROHN'S DISEASE, UNSPECIFIED, WITHOUT COMPLICATIONS Status: Acute (3) Status post reversal of ileostomy Code(s): Z98.890 - OTHER SPECIFIED POSTPROCEDURAL STATES Status: Acute (4) COPD not affecting current episode of care Code(s): J44.9 - CHRONIC OBSTRUCTIVE PULMONARY DISEASE, UNSPECIFIED Status: Acute - Plan * C. Diff Colitis- improving- * Generalized edema- improving * Nutritional Support- her diet has been changed to clear liquids * Crohn's disease- stable * Continue ambulation
--- NOTE | 2019-02-15 17:47 | PRG ---
DATE OF SERVICE: 02/15/2019 OBJECTIVE: VITAL SIGNS: The patient is noted with the following vital signs. Afebrile, temperature 98.2, pulse 79, respiratory rate of 18, O2 saturation of 94%, blood pressure of 127/78. HEENT: Unremarkable. CARDIOVASCULAR: First and second heart sounds were heard. RESPIRATORY: Clear to auscultation. DIGESTIVE SYSTEM: Revealed a benign abdomen. EXTREMITIES: No peripheral edema. SKIN: No new gross rash. LYMPHATICS: No peripheral lymphadenopathy. LABORATORY INVESTIGATION: Showed a hemoglobin of 8.4. Chemistry showed a potassium of 3.4, creatinine 0.88, magnesium 1.2. IMPRESSION: 1. Hypokalemia and hypomagnesemia. 2. Acute on chronic kidney disease, resolved. PLAN: 1. Replete the electrolytes. 2. Further management to be dependent on the clinical course. Job ID: [id number]
--- NOTE | 2019-02-15 18:21 | PRG ---
DATE OF SERVICE: 02/15/2019 SUBJECTIVE: Ms. Kwan returns out and was on tube feeds. Those got stopped. Her diarrhea is much better. She had one black bowel this morning and two smaller ones today. She is on a regular diet. I talked with Dr. Hickey. He started that this morning after we made her just full liquids last night. She states that she is not drinking a lot of sodas or sugars or milk. Her mother is at the bedside. OBJECTIVE: VITAL SIGNS: Temperature is 98.2, pulse 79, blood pressure 127/78. ABDOMEN: Soft and nontender. She has no rebound or guarding. LABORATORY DATA: White count 10.6, platelet count 592. Sodium 136, potassium 3.4, BUN and creatinine are 5 and 0.88. Stool for lactoferrin was negative yesterday on 02/14. ASSESSMENT: 1. Thrombocytosis, macrocytosis, mild anemia. 2. Crohn's. No evidence of active disease. 3. Status post ileostomy takedown. 4. History of ileal adenocarcinoma, status post removal. RECOMMENDATIONS: We would check B12 in light of macrocytosis and folic acid. These are normal in August. Job ID: [id number]
[2019-02-15] MEDS: Enoxaparin Sodium 40 MG/0.4 ML SYRINGE SC SCH (20:37)
[2019-02-16] MEDS: traMADol HCl 50 MG TAB PO PRN ×2 (02:59→09:04)
[2019-02-16] MEDS: Vancomycin HCl 25 MG/ML Oral PO SCH ×4 (03:00→20:36)
[2019-02-16 06:10] LABS: Folate (Folic Acid) 30.5 ng/mL (7.0-31.4)
--- NOTE | 2019-02-16 06:47 | PDOC.GSPN ---
Surgery Progress Note: Subj - Subjective Patient reports: no new complaints, feels better Narrative: Mrs. Kwan is a 53 year old female with a history of Crohn's disease who is Post- Op day 9 from ileostomy reversal and is continuing oral Vancomycin for diarrhea with (+) C. Difficile. She is doing very well this morning and feeling better. She reports having only one bowel movement last night that was more firm with a lot of flatus. Pain is mild at her ostomy site. Once changed back to her regular diet yesterday, she ate pieces of chicken fried steak, potatoes, and corn without issues. No Jevity supplementation yesterday. She continues to walk and ambulate in her room during the day and use the spirometer intermittently. Patient denies nausea, vomiting, fevers, chills, dizziness, and changes in urination. Surgery Progress Note: Obj - Vital signs Vital signs: Vital Signs - Most Recent Temp Pulse Resp BP Pulse Ox 98.2 F 87 20 141/68 H 97 02/15/19 20:00 02/15/19 20:00 02/15/19 20:00 02/15/19 20:00 02/15/19 20:00 - Physical Exam General: no distress ENT: normal mucosa Neck: no lymphadectomy, no masses Cardiovascular: regular rate and rhythm, no murmur Respiratory: clear to auscultation, normal expansion, breath sounds present Abdomen: soft, nondistended, positive bowel sounds, appropriately tender (Mild tenderness around her ostomy site.) Musculoskeletal: other (No edema in her upper extremities. 1+ edema bilaterally in feet that does not pass her ankles. 2+ pedal pulses bilaterally.) Psychiatric: oriented to time, oriented to person, oriented to place Wound: dressing clean,dry,intact (Only slight drainage. No signs of erythema, purulent discharge, or tumor.), healing well Surgery Progress Note: Results - Labs Result Diagrams: 02/15/19 05:08 02/16/19 04:03 Lab results: Laboratory Results - last 24 hr 02/16/19 04:03 Vitamin B12 296 Folate 30.50 Surgery Progress Note: A/P - Plan Plan: Mrs. Kwan is a 53 year old female with a history of Crohn's disease who is Post- Op day 9 from ileostomy reversal and is continuing oral Vancomycin for diarrhea with (+) C. Difficile. Post-Op Ileostomy Reversal -Has been changed back to regular diet. Jevity supplementation for electrolytes as needed. -Continue physical activity, ambulation, and using spirometer. -Edema in feet and forearms improving - Continue to monitor conservatively. -Wound care. -Consider discharge relatively soon if no further complications. Diarrhea with (+) C. Difficle -Improving. Currently receiving Oral Vancomycin. -Will continue to monitor diarrhea and hydration. Macrocytic anemia and thrombocytosis -Monitor labs. B12 was 296 & Folic acid was 30 this morning. Chron's disease -Stable Addendum - Physician - Physician Attestation Date/Time: 02/16/19 7342 I personally performed or re-performed the physical examination and medical decision making. I have verified all student documentation or findings, including history, physical exam and/or medical decision making.
[2019-02-16] MEDS: Ondansetron PF 4 MG/2 ML Vial IVP PRN (07:47)
[2019-02-16] MEDS: Lactinex Tablet PO SCH (08:53)
[2019-02-16] MEDS: Famotidine 20 MG TAB PO SCH (08:53)
[2019-02-16] MEDS: Carvedilol 6.25 MG TAB PO SCH ×2 (08:53→16:56)
[2019-02-16] MEDS: Saccharomyces boulardii 250 MG CAP PO SCH (08:54)
[2019-02-16] MEDS: Famotidine/PF 20 mg/2ml Vial SLOW IVP SCH (08:54)
[2019-02-16] MEDS: Escitalopram Oxalate 20 mg Tablet PO SCH (08:54)
[2019-02-16] MEDS: Cholestyramine/Aspartame 4 gm Packet PO SCH ×2 (08:55→23:53)
[2019-02-16 11:34] LABS: Anion Gap 12 mmol/L (10-20); BUN (Urea Nitrogen) 4 mg/dL (9.8-20.1); Calc. Creatinine Clearance 63 mL/min (70-130); Carbon Dioxide 21 mmol/L (22-29); Chloride 103 mmol/L (98-107); Estimated GFR-MDRD 74; Glucose 69 mg/dL (70-105); Magnesium 1.6 mg/dL (1.6-2.6); Potassium 3.7 mmol/L (3.5-5.1); Sodium 132 mmol/L (136-145)
--- NOTE | 2019-02-16 16:16 | PDOC.HOSPP ---
- Subjective Encounter Date: 02/16/19 Encounter Time: 16:15 Subjective: Ms. Kwan was seen today in follow-up of C. Diff Colitis. She is feeling better today. She is tolerating a solid diet, and has more of an appetite. Diarrhea has slowed down. - Objective Vital Signs & Weight: Vital Signs (12 hours) Temp Pulse Resp BP BP Pulse Ox 02/16/19 14:47 108/63 02/16/19 08:53 145/86 H 02/16/19 08:00 94 L 02/16/19 07:39 98.3 F 81 18 145/86 H 94 L Weight Admit Weight 110 lb 7 oz Weight 110 lb 0.171 oz I&O: 02/15/19 02/16/19 02/17/19 06:59 06:59 06:59 Intake Total 2350 1850 Balance 2350 1850 Result Diagrams: 02/15/19 05:08 02/16/19 04:03 Hospitalist ROS - Medication Medications: Active Medications Generic Name Dose Route Start Last Admin Trade Name Freq PRN Reason Stop Dose Admin Acidophilus 1 tab 02/11/19 09:00 02/16/19 08:53 Floranex PO 1 tab DAILY GEORGI Administration Carvedilol 6.25 mg 02/03/19 08:00 02/16/19 08:53 Coreg PO 6.25 mg BID-WM GEORGI Administration Cholestyramine Resin 4 gm 02/14/19 22:00 02/16/19 08:55 Questran Light PO 4 gm 1000,2200 GEORGI Administration Enoxaparin Sodium 40 mg 02/07/19 21:00 02/15/19 20:37 Lovenox SC 40 mg 2100 GEORGI Administration Escitalopram Oxalate 20 mg 02/13/19 09:00 02/16/19 08:54 Lexapro PO 20 mg DAILY GEORGI Administration Famotidine 20 mg 02/08/19 09:00 02/16/19 08:53 Pepcid PO 20 mg DAILY GEORGI Administration Famotidine 20 mg 02/08/19 09:00 02/16/19 08:54 Pepcid SLOW IVP Not Given DAILY GEORGI Fentanyl 25 mcg 02/07/19 11:24 02/13/19 03:01 Sublimaze SLOW IVP 25 mcg Q2H PRN Administration Mild Pain (1-3) Fentanyl 50 mcg 02/07/19 11:24 02/14/19 08:48 Sublimaze SLOW IVP 50 mcg Q2H PRN Administration Moderate to Severe Pain (6-10) Ondansetron HCl 4 mg 02/07/19 11:24 02/16/19 07:47 Zofran IVP 4 mg Q6H PRN Administration Nausea/Vomiting Promethazine HCl 12.5 mg 02/07/19 11:24 02/08/19 20:32 Phenergan IM 12.5 mg Q4H PRN Administration Nausea/Vomiting Saccharomyces Boulardii 250 mg 02/11/19 09:00 02/16/19 08:54 Florastor PO 250 mg DAILY GEORGI Administration Tramadol HCl 100 mg 02/14/19 13:19 02/16/19 09:04 Ultram PO 100 mg Q6H PRN Administration Moderate Pain (4-6) Vancomycin HCl 250 mg 02/10/19 15:00 02/16/19 15:44 First Vancomycin PO 02/24/19 15:01 250 mg 0300,0900,1500,2100 GEORGI Administration - Exam Eye: PERRL, anicteric sclera Heart: RRR, no murmur, no gallops, no rubs, normal peripheral pulses Respiratory: CTAB, no wheezes, no rales, no ronchi, normal chest expansion, no tachypnea, normal percussion Gastrointestinal: soft, non-distended, normal bowel sounds, no palpable masses, tender to palpation (+ mild right mid abdominal tenderness) Extremities: 1+ LE edema (edema in both upper extremities, and feet has improved ) Skin: normal turgor, no lesions Psychiatric: normal affect Hosp A/P (1) Clostridium difficile diarrhea Code(s): A04.72 - ENTEROCOLITIS D/T CLOSTRIDIUM DIFFICILE, NOT SPCF RECUR Status: Acute (2) Crohns disease Code(s): K50.90 - CROHN'S DISEASE, UNSPECIFIED, WITHOUT COMPLICATIONS Status: Acute (3) Status post reversal of ileostomy Code(s): Z98.890 - OTHER SPECIFIED POSTPROCEDURAL STATES Status: Acute (4) COPD not affecting current episode of care Code(s): J44.9 - CHRONIC OBSTRUCTIVE PULMONARY DISEASE, UNSPECIFIED Status: Acute - Plan * C. Diff Colitis- she continue to improve- she is tolerating a solid diet. * Generalized edema- improving * Crohn's disease- stable * Hopefully home tomorrow
--- NOTE | 2019-02-16 19:27 | PRG ---
DATE OF SERVICE: 02/16/2019 SUBJECTIVE: Ms. Kwan is feeling well. She had one bowel movement, which is soft and not fully formed, but not watery like it was. OBJECTIVE: VITAL SIGNS: Blood pressure 145/86, temperature 98.3, and respiratory rate 16. ABDOMEN: Soft and nontender. LUNGS: Clear. HEART: Regular rate and rhythm without clicks or murmurs. LABORATORY DATA: Sodium 132, potassium 3.7, BUN and creatinine are 4 and 0.8, and magnesium 1.6. B12 is 296 and folate 30. ASSESSMENT: 1. Crohn's, in remission. 2. Diarrhea, improving. 3. Clostridium difficile, being treated empirically. Stool fecal lactoferrin has been negative, so makes the Clostridium difficile for Crohn's less likely to be an active issue at this time. 4. Status post ileostomy takedown. RECOMMENDATIONS: 1. Resume Humira as scheduled. 2. Lactose-free diet. 3. Agree with Dr. Hickey. She will go home tomorrow barring any changes. Job ID: [id number]
[2019-02-16] MEDS: Enoxaparin Sodium 40 MG/0.4 ML SYRINGE SC SCH (20:36)
--- NOTE | 2019-02-16 21:05 | PRG ---
DATE OF SERVICE: 02/16/2019 OBJECTIVE: VITAL SIGNS: The patient was noted with the following vital signs: Afebrile, temperature 98.2, pulse 80, respiratory rate of 16, O2 saturation of 94%, blood pressure 129/79. HEENT: Unremarkable. CARDIOVASCULAR SYSTEM: First and second heart sounds were heard. RESPIRATORY SYSTEM: Clear to auscultation. DIGESTIVE SYSTEM: Revealed a benign abdomen. EXTREMITIES: No peripheral edema. SKIN: No new gross rash. LYMPHATICS: No peripheral lymphadenopathy. IMPRESSION: 1. Mild hyponatremia. 2. Acute on chronic kidney disease, improved. 3. Hypokalemia, resolved. PLAN: Continue current renal supportive measures. Job ID: [id number]
[2019-02-17] MEDS: traMADol HCl 50 MG TAB PO PRN (03:02)
[2019-02-17] MEDS: Vancomycin HCl 25 MG/ML Oral PO SCH ×2 (03:04→08:56)
[2019-02-17] MEDS: Carvedilol 6.25 MG TAB PO SCH (08:55)
[2019-02-17] MEDS: Famotidine 20 MG TAB PO SCH (08:55)
[2019-02-17] MEDS: Escitalopram Oxalate 20 mg Tablet PO SCH (08:55)
[2019-02-17] MEDS: Saccharomyces boulardii 250 MG CAP PO SCH (08:56)
[2019-02-17] MEDS: Cholestyramine/Aspartame 4 gm Packet PO SCH (08:57)
[2019-02-17] MEDS: Lactinex Tablet PO SCH (09:28)
[2019-02-17] MEDS: Famotidine/PF 20 mg/2ml Vial SLOW IVP SCH (09:45)
--- NOTE | 2019-02-17 12:23 | PDOC.GSPN ---
Surgery Progress Note: Subj - Subjective Patient reports: no new complaints (Stools more solid) Surgery Progress Note: Obj - Vital signs Vital signs: Vital Signs - Most Recent Temp Pulse Resp BP Pulse Ox 98.3 F 83 18 131/76 91 L 02/17/19 07:05 02/17/19 07:05 02/17/19 07:05 02/17/19 08:55 02/17/19 08:50 - Physical Exam General: no distress Respiratory: clear to auscultation Abdomen: soft, non tender, nondistended Wound: healing well Surgery Progress Note: Results - Labs Result Diagrams: 02/15/19 05:08 02/16/19 04:03 Surgery Progress Note: A/P - Problem (1) Crohns disease Current Visit: Yes Code(s): K50.90 - CROHN'S DISEASE, UNSPECIFIED, WITHOUT COMPLICATIONS Status: Acute - Plan Plan: s/p ileostomy takedown -dc today -I sent over oral vanc to finish course for cdiff -f/u me 2 weeks
[2019-02-17 14:12] VITALS: BP 132/78; TEMP 97.7
--- NOTE | 2019-02-18 05:25 | DIS ---
DATE OF ADMISSION: 02/02/2019 DATE OF DISCHARGE: 02/17/2019 PRIMARY CARE PHYSICIAN: Dr. Mandi Kirk. DISCHARGE DISPOSITION: Home. PRIMARY DISCHARGE DIAGNOSES: 1. Acute kidney injury. 2. High output from the ileostomy. 3. Hyponatremia due to volume depletion. 4. Crohn disease. DISCHARGE MEDICATIONS: Include: 1. Lexapro 20 mg daily. 2. Carvedilol 3.125 mg twice daily. 3. Protonix 40 mg twice daily. 4. Zofran 4 mg twice a day as needed. 5. Calcium carbonate 600 mg daily. 6. Biotin 5000 mcg p.o. daily. 7. Humira as directed. CODE STATUS: Full code. ALLERGIES: TO MORPHINE, FENTANYL, CIPRO AND HYDROCODONE. HOSPITAL COURSE: Ms. Kwan is a very pleasant 53-year-old female, who was in a direct admit from Dr. Cespedes's office due to concerns for laboratory abnormalities. The patient was found to have acute kidney injury, as well as hyponatremia with a serum sodium of 118. She has a history of having an ileostomy due to a colon stricture from Crohn disease. She is noted to have high output from this ileostomy. It is felt that this was the etiology of her electrolyte abnormalities as she was also having poor oral intake as well. She was seen by Gastroenterology, as well as the Infectious Disease specialist and General Surgery during this hospital stay and Nephrology. Her serum sodium was corrected with fluid resuscitation. She underwent takedown of the ileostomy during her hospital stay. Unfortunately, her hospital stay was complicated by developing Clostridium difficile. She was treated with oral vancomycin. Once her diarrhea was controlled, which took several days and her oral input increased, she was able to be discharged home to have close outpatient followup with Dr. Cespedes as well as with Dr. Hickey. Job ID: [id number]
--- NOTE | 2019-02-20 10:40 | OP ---
DATE OF PROCEDURE: 02/07/2019 PREOPERATIVE DIAGNOSES: 1. History of Crohn disease with T1 N0 invasive adenocarcinoma ileocecal valve. 2. Attention to ileostomy. PROCEDURES PERFORMED: Ileostomy reversal via laparotomy and anastomosis of ileum to transverse colon. ANESTHESIA: General. ESTIMATED BLOOD LOSS: 100 mL. COMPLICATIONS: None. SPECIMEN: Ileostomy segment. TECHNIQUE: The patient underwent preop placement of TAP blocks in the preop holding area, was taken to the operating room and laid supine on the operating room table. After general anesthetic was obtained, a Sanders was placed. The abdomen was prepped and draped in a sterile fashion. Previous large and wide scar was excised with a midline incision. The abdomen was entered very carefully using cautery. All adhesions were taken down from the posterior abdominal wall sharply without injury. Adhesiolysis was performed of the abdomen up around the ileostomy segment. The ileostomy skin was then ellipsed out, and the ileostomy segment was able to brought back into the abdominal cavity. There were some omental adhesions over the transverse colon that were taken down. CONOR 75 stapler was fired across the ileum just proximal to the ileostomy segment. The mesentery was taken using Impact LigaSure. An isoperistaltic anastomosis was performed by placing the small bowel up against the transverse colon. Enterotomy was made on the end of the small bowel and more distal on the colon. A [id number] stapled anastomosis was performed. The common enterotomy was closed in 2 layers of Vicryl suture. Crotch stitch in the mesentery defect was closed. Posterior fascial defect was closed at the ostomy site as was the anterior. There was no ongoing bleeding in the abdomen. The midline fascia was closed using #1 PDS. Subcutaneous tissues were irrigated and closed using 3-0 Vicryl, 4-0 Monocryl, and Dermabond. Ileostomy skin was closed using a pursestring of Prolene and Kevin. Pursestring of Prolene and Percy was left in the middle of the wound to allow for drainage. Sterile dressings were placed. The patient was sent to Recovery in stable condition. All instrument counts, needle counts, and lap counts were correct. Job ID: [id number]
== END 2019-02-17 14:30 | disposition home or self-care (01) | DRG 330 ==
LOC: OBSVTOIN 18:05 → 2SW 18:05 → T4-A 21:29 → SURG A 02-07 10:31 → T4-A 02-07 10:43
PROVIDERS: ADMIT Internal Medicine; ATTEND Internal Medicine
PROC: 0DQB0ZZ Repair Ileum, Open Approach (ICD-10-PCS; principal; 2019-02-07)
DX: K94.13 Enterostomy malfunction (principal); K50.90 Crohn's disease, unspecified, without complications; N17.9 Acute kidney failure, unspecified; E87.1 Hypo-osmolality and hyponatremia; E87.3 Alkalosis; K56.7 Ileus, unspecified; A04.72 Enterocolitis due to Clostridium difficile, not specified as recurrent; E87.5 Hyperkalemia; D72.0 Genetic anomalies of leukocytes; E83.42 Hypomagnesemia; E83.39 Other disorders of phosphorus metabolism; D72.829 Elevated white blood cell count, unspecified; N18.9 Chronic kidney disease, unspecified; F32.9 Major depressive disorder, single episode, unspecified; E87.6 Hypokalemia; E86.0 Dehydration; K21.9 Gastro-esophageal reflux disease without esophagitis; D47.3 Essential (hemorrhagic) thrombocythemia; D63.1 Anemia in chronic kidney disease; J44.9 Chronic obstructive pulmonary disease, unspecified; E86.9 Volume depletion, unspecified; Y83.8 Other surgical procedures as the cause of abnormal reaction of the patient, or of later complication, without mention of misadventure at the time of the procedure; Z90.49 Acquired absence of other specified parts of digestive tract; Z88.1 Allergy status to other antibiotic agents; Z88.6 Allergy status to analgesic agent; Z88.8 Allergy status to other drugs, medicaments and biological substances
CPT/HCPCS: 36415; 71045; 71046; 80048; 80053; 80400; 81001; 82607; 82746; 83605; 83630; 83690; 83735; 83880; 83930; 84100; 84300; 84443; 85007; 85025; 85027; 85652; 86140; 86480; 87040; 87086; 87324; 87385; 87449; 87493; 87497; 87899; 88304; 93005; 93010; J0131; J0670; J0694; J0696; J0834; J1100; J1170; J1650; J1720; J1885; J2001; J2250; J2405; J2550; J2704; J3010; J3475; J3490; J7050; S0028

== ENCOUNTER 2019-03-21 16:14 | Inpatient (IN) | payer BC ==
[2019-03-21 17:43] LABS: #Basophils 0.1 thou/uL (0.0-0.2); #Eosinphils 0.3 thou/uL (0.0-0.7); #Lymphocytes 4.7 thou/uL (1.20-3.40); #Monocytes 1.1 thou/uL (0.11-0.59); #Neutrophils 6.5 thou/uL (1.40-6.50); %Basophils 0.7 % (0.0-1.0); %Eosinophils 2.1 % (0.0-10.0); %Lymphocytes 37.2 % (21.0-51.0); %Monocytes 8.9 % (0.0-10.0); %Neutrophils 51.2 % (42.0-75.0); Mean Corpuscular HGB CONC 36.4 g/dL (32.0-36.0); Mean Corpuscular Hemoglobin 32.7 pg (27.0-31.0); Mean Platelet Volume 7.2 fL (7.4-10.4); Platelet Count 426 thou/uL (130-400); RBC Distribution Width 12.3 % (11.5-14.5); Red Blood Cell (RBC) Count 3.36 mill/uL (4.20-5.40); White Blood Cell (WBC) Count 12.7 thou/uL (4.8-10.8)
[2019-03-21 18:13] LABS: ALT (SGPT) 8 U/L (8-55); AST (SGOT) 20 U/L (5-34); Albumin 3.2 g/dL (3.5-5.0); Alkaline Phosphatase 94 U/L (40-110); Anion Gap 13 mmol/L (10-20); BUN (Urea Nitrogen) 16 mg/dL (9.8-20.1); Bilirubin, Total 1.1 mg/dL (0.2-1.2); Calc. Creatinine Clearance 0 mL/min (70-130); Calcium 8.5 mg/dL (7.8-10.44); Carbon Dioxide 17 mmol/L (22-29); Chloride 106 mmol/L (98-107); Estimated GFR-MDRD 20; Globulin 2.5 g/dL (2.4-3.5); Glucose 82 mg/dL (70-105); Magnesium 1.3 mg/dL (1.6-2.6); Protein, Total 5.7 g/dL (6.0-8.3); Sodium 134 mmol/L (136-145)
[2019-03-21 18:15] LABS: Potassium 2.2 mmol/L (3.5-5.1)
[2019-03-21] MEDS ORDERED: Magnesium 2 GM/50 ML BAG (IN WATER) ONE (18:45)
[2019-03-21] MEDS ORDERED: Potassium Phosphate 30 MMOL in Sodium Chloride 0.9% 500 ML IVPB SCH (18:45)
[2019-03-21] MEDS ORDERED: Potassium Chloride 20 MEQ TAB ONE (18:45)
[2019-03-21] MEDS ORDERED: Potassium Chloride 10 MEQ/100 ML PREMIX BAG IVPB SCH (20:15)
[2019-03-21 20:48] LABS: ALT (SGPT) 8 U/L (8-55); AST (SGOT) 19 U/L (5-34); Albumin 3.3 g/dL (3.5-5.0); Alkaline Phosphatase 102 U/L (40-110); Anion Gap 14 mmol/L (10-20); BUN (Urea Nitrogen) 15 mg/dL (9.8-20.1); Bilirubin, Total 1.3 mg/dL (0.2-1.2); Calc. Creatinine Clearance 0 mL/min (70-130); Carbon Dioxide 18 mmol/L (22-29); Chloride 106 mmol/L (98-107); Estimated GFR-MDRD 20; Globulin 2.5 g/dL (2.4-3.5); Glucose 89 mg/dL (70-105); Protein, Total 5.8 g/dL (6.0-8.3); Sodium 135 mmol/L (136-145)
[2019-03-21 20:51] LABS: Potassium 2.7 mmol/L (3.5-5.1)
--- NOTE | 2019-03-21 21:03 | PDOC.EVN ---
Event Note - Event Note Event Note: [id number] HP
[2019-03-21 21:48] LABS: Lactic Acid 0.9 mmol/L (0.5-2.2)
[2019-03-21] MEDS ORDERED: Potassium Chloride 10 MEQ in Premix Bag 1 BAG IVPB SCH (22:15)
[2019-03-21] MEDS ORDERED: NS 0.9% w/ 20 MEQ KCL 1,000 ML/1,000 ML BAG IV SCH (22:30)
[2019-03-21] MEDS: Famotidine/PF 20 mg/2ml Vial SLOW IVP SCH (22:50)
--- NOTE | 2019-03-22 02:12 | HP ---
CHIEF COMPLAINT: Diarrhea and abnormal labs. HISTORY OF PRESENT ILLNESS: Ms. Kwan is a 53-year-old female presenting to the emergency room with abnormal labs and diarrhea. The patient is a [facility]. She presented with generalized weakness. Colostomy removal a month ago and states she has been experiencing nausea and diarrhea since then. The patient has a very low potassium of 2.1, low magnesium 1.3, low phosphate, the patient appeared dehydrated. Electrolyte replacement started. GI has been consulted. The patient is being admitted to hospital for further management. PAST MEDICAL HISTORY: 1. Crohn disease. 2. Colon cancer. PAST SURGICAL HISTORY: 1. Cholecystectomy. 2. Colostomy. 3. Ileocecectomy. 4. Colon resection with ileocolic anastomosis with end ileostomy. 5. PEG tube displacement. 6. Reversal of colostomy and PEG tube on February 07. SOCIAL HISTORY: Denies alcohol drinking. Former cigarette smoker. ALLERGIES: CIPRO, FENTANYL, HYDROCODONE, MORPHINE. HOME MEDICATIONS: Please see home medication reconciliation form for updated medications. FAMILY HISTORY: Reviewed and noncontributory. REVIEW OF SYSTEMS: Review of 14 systems negative except what is mentioned in the history of present illness. PHYSICAL EXAMINATION: GENERAL: The patient is awake, alert, does not appear to be in acute distress and appears dehydrated. VITAL SIGNS: Blood pressure 101/52, pulse is 86, respiratory rate is 16, temperature 98. HEAD AND NECK: Normocephalic, atraumatic. NECK: Supple. No JVD. CHEST: Fair bilateral air entry. ABDOMEN: Soft, nontender. Bowel sounds present. NEUROLOGIC: Awake, alert, oriented x3. PSYCHIATRIC: Normal mood. EXTREMITIES: No clubbing, no cyanosis. LABORATORY DATA: WBC is 12.7, hemoglobin 11, platelets 426. Electrolytes as mentioned above in the history of present illness. The patient's creatinine is 2.48. ASSESSMENT: 1. Acute renal failure. 2. Severe electrolyte abnormalities. 3. Hypokalemia. 4. Hypomagnesemia. 5. Hypophosphatemia. 6. Crohn disease. 7. History of colon cancer. PLAN: 1. Admit. 2. IV fluid hydration. 3. Replace potassium. 4. Replace magnesium. 5. Replace phosphate. 6. GI is being consulted for evaluation and further management. 7. Reconcile home medications. 8. Deep venous thrombosis prophylaxis, SCDs/early ambulation. 9. Expected length of stay, 2 midnights or more. Job ID: [id number]
[2019-03-22 05:11] LABS: Anion Gap 11 mmol/L (10-20); BUN (Urea Nitrogen) 13 mg/dL (9.8-20.1); Calc. Creatinine Clearance 22 mL/min (70-130); Carbon Dioxide 16 mmol/L (22-29); Chloride 112 mmol/L (98-107); Estimated GFR-MDRD 25; Glucose 80 mg/dL (70-105); Magnesium 1.9 mg/dL (1.6-2.6); Sodium 136 mmol/L (136-145)
[2019-03-22 05:15] LABS: Potassium 2.6 mmol/L (3.5-5.1)
[2019-03-22 05:20] LABS: Phosphorus 1.4 mg/dL (2.3-4.7)
[2019-03-22] MEDS ORDERED: Potassium Chloride 10 MEQ in Premix Bag 1 BAG IVPB SCH (08:00)
[2019-03-22] MEDS: Potassium Chloride 20 MEQ in Premix Bag 1 BAG IVPB SCH ×2 (08:17→11:16)
[2019-03-22] MEDS ORDERED: NS 0.9% w/ 20 MEQ KCL 1,000 ML/1,000 ML BAG IV SCH (08:45)
--- NOTE | 2019-03-22 13:14 | PDOC.HOSPP ---
- Subjective Encounter Date: 03/22/19 Encounter Time: 13:10 Subjective: f/u for diarrhea, dehydration and multiple electrolyte abnormalities receiving IVF's and electrolyte replacement. States feeling a little better. - Objective Vital Signs & Weight: Vital Signs (12 hours) Temp Pulse Resp BP BP Pulse Ox 03/22/19 07:42 98.7 F 74 12 92/46 L 98 03/22/19 05:20 78 18 92/53 L 03/22/19 04:00 97.5 F L 76 14 89/51 L 96 Weight Admit Weight 100 lb 1.6 oz Weight 102 lb I&O: 03/21/19 03/22/19 03/23/19 06:59 06:59 06:59 Intake Total 240 1342 Output Total 320 Balance 240 1022 Result Diagrams: 03/21/19 17:29 03/22/19 04:20 Additional Labs: Microbiology 02/02/19 23:20 Urine clean catch Urine Culture - Preliminary NO GROWTH AT 24 HOURS 02/02/19 19:32 Venous blood - Right Arm Blood Culture - Preliminary Specimen has been received and culture in progress. No Growth to date. 02/02/19 19:25 Venous blood - Left Arm Blood Culture - Preliminary Specimen has been received and culture in progress. No Growth to date. Laboratory Tests 02/02/19 02/02/19 02/02/19 19:27 19:27 19:27 WBC 16.7 H Hgb 13.0 Plt Count Neutrophils % Neutrophils % (Manual) Band Neuts % (Manual) ESR Westergren Sodium 117 L* Potassium Carbon Dioxide BUN 48 H Creatinine 2.35 H Lactic Acid Calcium 10.9 H Phosphorus Magnesium TSH 3rd Generation 3.3727 02/02/19 02/02/19 02/04/19 19:27 23:41 05:50 WBC 9.1 Hgb 10.8 L Plt Count 494 H Neutrophils % Neutrophils % (Manual) Band Neuts % (Manual) ESR Westergren 59 Sodium 118 L* Potassium Carbon Dioxide BUN 48 H Creatinine 2.32 H Lactic Acid Calcium 10.1 Phosphorus Magnesium TSH 3rd Generation 02/05/19 02/06/19 02/07/19 05:05 05:45 05:12 WBC Hgb Plt Count Neutrophils % Neutrophils % (Manual) Band Neuts % (Manual) ESR Westergren Sodium Potassium Carbon Dioxide 19 L 16 L 20 L BUN Creatinine 1.45 H 1.18 H 1.29 H Lactic Acid Calcium Phosphorus Magnesium [facility] 3rd Generation 02/08/19 02/08/19 02/09/19 05:14 05:14 02:10 WBC 21.0 H Hgb 9.5 L Plt Count 453 H Neutrophils % Neutrophils % (Manual) 74 Band Neuts % (Manual) 12 H ESR Westergren Sodium 132 L Potassium Carbon Dioxide BUN Creatinine 1.55 H Lactic Acid Calcium Phosphorus Magnesium 0.9 L* TSH 3rd Generation 02/09/19 02/09/19 03/21/19 02:10 02:10 17:29 WBC Hgb Plt Count Neutrophils % 82.5 H Neutrophils % (Manual) Band Neuts % (Manual) ESR Westergren Sodium 134 L Potassium 2.2 L* Carbon Dioxide 17 L BUN Creatinine 2.48 H Lactic Acid 0.7 Calcium Phosphorus Magnesium 1.3 L TSH 3rd Generation 03/21/19 03/21/19 03/21/19 17:29 17:29 20:19 WBC Hgb Plt Count Neutrophils % Neutrophils % (Manual) Band Neuts % (Manual) ESR Westergren Sodium 135 L Potassium 2.7 L* Carbon Dioxide 18 L BUN Creatinine 2.47 H Lactic Acid 2.5 H Calcium Phosphorus 1.0 L Magnesium [facility] 3rd Generation 03/21/19 03/22/19 03/22/19 21:23 04:20 04:20 WBC Hgb Plt Count Neutrophils % Neutrophils % (Manual) Band Neuts % (Manual) ESR Westergren Sodium Potassium Carbon Dioxide BUN Creatinine Lactic Acid 0.9 Calcium Phosphorus 1.4 L Magnesium 1.9 [facility] 3rd Generation EKG Reviewed by me: Yes (Tele - SR) Hospitalist ROS - Medication Medications: Active Medications Generic Name Dose Route Start Last Admin Trade Name Freq PRN Reason Stop Dose Admin Famotidine 20 mg 03/21/19 21:00 03/21/19 22:50 Pepcid SLOW IVP 20 mg QPM GEORGI Administration Potassium Chloride/Sodium Chloride 1,000 ml in 1,000 mls @ 125 mls/hr 08:45 03/22/19 09:22 Ns 0.9% W/ 20 Meq Kcl IV 1,000 mls INF GEORGI Administration Sodium Chloride 10 ml 03/22/19 09:00 03/22/19 09:22 Flush - Normal Saline IVF 10 ml Q12HR GEORGI Administration - Exam Eye: PERRL, anicteric sclera ENT: normocephalic atraumatic, no oropharyngeal lesions Neck: supple, symmetric, no JVD, no thyromegaly, no lymphadenopathy Heart: RRR, no murmur, no gallops, no rubs, normal peripheral pulses Respiratory: CTAB, no wheezes, no rales, no ronchi, normal chest expansion Gastrointestinal: soft, non-tender, non-distended, normal bowel sounds, no palpable masses Extremities: no cyanosis, no clubbing, no edema Skin: normal turgor, no lesions Neurological: cranial nerve grossly intact, no new deficit Musculoskeletal: normal tone Psychiatric: normal affect, A&O x 3 Hosp A/P (1) RUT (acute kidney injury) Code(s): N17.9 - ACUTE KIDNEY FAILURE, UNSPECIFIED Status: Acute Plan: Continue IVF's, avoid nephrotoxic meds and limit contrast exposure, serial creatinine (2) Hypokalemia Code(s): E87.6 - HYPOKALEMIA Status: Acute Plan: Secondary to GI loss, continue KCL supplementation, serial K+ monitoring (3) Hypomagnesemia Code(s): E83.42 - HYPOMAGNESEMIA Status: Acute Plan: Mag Oxide 400mg BID (4) Hyponatremia Code(s): E87.1 - HYPO-OSMOLALITY AND HYPONATREMIA Status: Acute Plan: Improved, continue IV NS, serial Na+ monitoring (5) Crohn's disease Code(s): K50.90 - CROHN'S DISEASE, UNSPECIFIED, WITHOUT COMPLICATIONS Status: Chronic Qualifiers: Gastrointestinal tract location: small and large intestine (6) Nausea & vomiting Code(s): R11.2 - NAUSEA WITH VOMITING, UNSPECIFIED Status: Acute Qualifiers: Vomiting type: unspecified Vomiting Intractability: intractable Qualified Code(s): R11.2 - Nausea with vomiting, unspecified Plan: Improved, continue IVF's, antiemetics (7) Severe dehydration Code(s): E86.0 - DEHYDRATION Status: Acute Plan: Due to gastroenteritis, continue IVF's, encourage increased free-H2O intake - Plan psychotherapist social worker, out of bed/ambulate, DVT proph w/SCDs Stable currently Continue IVF's + KCL Magnesium Oxide 400mg BID GI planning for Colonoscopy in am Resume home meds AM lab: BMP, CBC, Mg++, PO3
[2019-03-22] MEDS ORDERED: Magnesium Oxide 400 MG TAB PO SCH (14:00)
[2019-03-22] MEDS: NS 0.9% w/ 20 MEQ KCL 1,000 ML IV SCH (18:54)
[2019-03-22] MEDS ORDERED: GoLYTELY 4,000 ml Bottle PO SCH (20:00)
[2019-03-22] MEDS: Famotidine/PF 20 mg/2ml Vial SLOW IVP SCH (20:06)
[2019-03-22] MEDS: Magnesium Oxide 400 MG TAB PO SCH (20:07)
[2019-03-22] MEDS: Ondansetron PF 4 MG/2 ML Vial IVP PRN (22:16)
[2019-03-23] MEDS: NS 0.9% w/ 20 MEQ KCL 1,000 ML IV SCH ×3 (02:43→17:48)
[2019-03-23 05:41] LABS: Band 1 % (5-11); Eosinophils 6 % (0-10); Hemoglobin 9.4 g/dL (12.0-16.0); Lymphocytes 42 % (21-51); MDiff Complete? YES; Mean Corpuscular HGB CONC 35.9 g/dL (32.0-36.0); Mean Corpuscular Hemoglobin 33.6 pg (27.0-31.0); Mean Corpuscular Volume 93.5 fL (78.0-98.0); Mean Platelet Volume 7.6 fL (7.4-10.4); Monocytes 2 % (0-10); Neutrophil 49 % (42-75); Platelet Count 349 thou/uL (130-400); RBC Distribution Width 12.4 % (11.5-14.5); Red Blood Cell (RBC) Count 2.81 mill/uL (4.20-5.40); White Blood Cell (WBC) Count 8.1 thou/uL (4.8-10.8)
[2019-03-23 05:44] LABS: Anion Gap 8 mmol/L (10-20); BUN (Urea Nitrogen) 8 mg/dL (9.8-20.1); Calc. Creatinine Clearance 28 mL/min (70-130); Calcium 7.8 mg/dL (7.8-10.44); Carbon Dioxide 13 mmol/L (22-29); Chloride 118 mmol/L (98-107); Estimated GFR-MDRD 32; Glucose 73 mg/dL (70-105); Magnesium 1.5 mg/dL (1.6-2.6); Potassium 3.3 mmol/L (3.5-5.1); Sodium 136 mmol/L (136-145)
[2019-03-23 05:48] LABS: Phosphorus 1.3 mg/dL (2.3-4.7)
[2019-03-23] MEDS ORDERED: Potassium Phosphate 15 MMOL in Sodium Chloride 0.9% 250 ML 250 ML IVPB SCH (06:30)
--- NOTE | 2019-03-23 07:19 | CON ---
DATE OF CONSULTATION: HISTORY OF PRESENT ILLNESS: Ms. Kwan was readmitted to the hospital for diarrhea. She was recently here back in the beginning of February for takedown of ileostomy, which had been initially placed after surgery for an ileal cancer related to her Crohn's. She was actually having quite a bit of ileostomy output and dehydration prior to her ostomy takedown and once the ostomy was taken down, she has had a lot of diarrhea. She had positive Clostridium difficile on the hospital and she was treated for about 5 days in the hospital and then was discharged and could not get medicines for about 3 days and then once her insurance approved it, she was treated for 14 days of p.o. vancomycin, which ended on about the 06 of March. She reports the diarrhea really never got better. We saw her in the office shortly after discharge and she was doing pretty well, not tachycardiac, having about 2 to 3 bowel movements a day, they were soft to loose. Now, she reports she has been having bowel movements about 4 to 8 times per day, which were watery without blood or cramping. She called us because her pulse rate was 120 and she felt weak and short of breath and we sent her to the emergency room. She was found to be profoundly dehydrated in [place] with a white count of 16,000, hemoglobin of 16 , and platelet count of 551. Potassium of 2.1, creatinine of 3.34, sodium of 132, lactic acid of 4, low magnesium, and low phosphorus. She was given 2 L of fluids there. She had a CAT scan that showed small indeterminate right lower lobe lesion, but no other abnormalities. Her total protein is 7, albumin is 4.2. Liver function tests were otherwise normal. The ER in [place] contacted me as they could admit her but felt I with her ongoing diarrhea and history of Crohns she would need a colonoscopy. So she was transferred over. She states she has had no fever, chills, rashes, myalgias , or arthralgias. She is eating well at home. She has had diarrhea four times a day here and has been n.p.o. She also get up at night. No diarrhea. Temperature is 98.7, pulse 74, blood pressure 92/46. PAST MEDICAL HISTORY: History of Crohn disease, on Humira. PAST SURGICAL HISTORY: 1. Previous ileal resection with complication requiring ileostomy, diversion for a time and recent takedown in this February. 2. Prior history of cholecystectomy. 3. Prior history of emphysema. She is a prior smoker. 4. Previous PEG tube removed on February 07. SOCIAL HISTORY: Denies drinking alcohol. She used to smoke. ALLERGIES: FENTANYL, CIPRO, HYDROCODONE, AND MORPHINE. HOME MEDICATIONS: 1. Fiber. 2. Acidophilus. 3. Humira. 4. Calcium. 5. Vitamin B6. 6. Protonix. 7. Zofran. 8. Lexapro. 9. Coreg. PRESENT MEDICATIONS: 1. Zofran. 2. Pepcid. 3. Normal saline at 20. 4. KCl 125 an hour. REVIEW OF SYSTEMS: She denies taking laxatives. She denies taking the herbal supplements. She denies any shortness of breath or dyspnea. She feels better now since getting fluids. She wants to eat. She denies dysphagia, odynophagia, or reflux. PHYSICAL EXAMINATION: LUNGS: Clear. HEART: Regular rhythm. No murmurs. ABDOMEN: Soft and nontender. Abdomen has well-healed scar in midline. No evidence of fistulas, skin breakdown, or hernias. EXTREMITIES: No clubbing, cyanosis, or edema. LABORATORY DATA: Today, white count 12.7. hypokalemia, hypophosphatemia, and hypomagnasemia. Assessment: Chronic diarrhea with electrolyte abnormalities and pre renal azotemia. Crohn's Plan:.Stool studies, hydrate, if stool studies non diagnostic then will need colonoscopy. Job ID: [id number] MTDD
[2019-03-23] MEDS ORDERED: Ondansetron HCl/PF 4 MG/2 ML Vial IVP PRN ×2 (08:56→13:24)
[2019-03-23] MEDS: Magnesium Oxide 400 MG TAB PO SCH ×2 (09:25→20:59)
[2019-03-23] MEDS: Escitalopram Oxalate 20 mg Tablet PO SCH (09:25)
[2019-03-23] MEDS: pyridOXINE 50 MG (B6) TAB PO SCH (09:25)
[2019-03-23] MEDS: Lactinex Tablet PO SCH (09:26)
[2019-03-23] MEDS: Calcium Carbonate 600 MG TAB PO SCH (10:27)
[2019-03-23] MEDS ORDERED: Iopamidol 370 76% 100 ML VIAL ONE (11:34)
[2019-03-23] MEDS ORDERED: PROPOFOL 200 MG/20 ML VIAL ONE (12:18)
[2019-03-23] MEDS ORDERED: Promethazine HCl 25 MG/ML VIAL SLOW IVP PRN (13:24)
[2019-03-23] MEDS ORDERED: Promethazine HCl 25 MG/ML VIAL IM PRN (13:24)
--- NOTE | 2019-03-23 15:27 | OP ---
DATE OF PROCEDURE: 03/23/2019 PROCEDURES PERFORMED: Esophagogastroduodenoscopy with biopsy and colonoscopy with biopsy. INDICATION FOR PROCEDURE: Diarrhea, history of ileal Crohn disease. DESCRIPTION OF PROCEDURE: After the risks and benefits of the procedure were explained to the patient including risks of bleeding, infection, perforation, reactions to anesthesia, aspiration and/or pain, informed consent was obtained. The patient was then taken to the endoscopy suite, where deep sedation was administered via propofol and anesthesia support. Once adequate sedation was achieved, the patient was placed in the left lateral decubitus position with introduction of the standard gastroscope into the mouth and intubation of the esophagus, stomach, and the proximal small intestines with the findings listed below. The patient tolerated the procedure well with no immediate perioperative complications. Upon conclusion of this phase of the procedure, all equipment was removed from the patient and the bed was rotated to 180 degrees in anticipation of the colonoscopy. Once the digital rectal examination was performed, the standard colonoscope was introduced into the rectum and advanced to the terminal ileum with mild difficulty due to tortuosity and diverticulosis in the sigmoid colon, but was able to be achieved without significant difficulty. The quality of the prep was good with a mild amount of retained solid stool that was easily suctioned now with aggressive irrigation and suctioning. The patient tolerated the procedures well with no immediate perioperative complications. Upon conclusion of the colonoscopy, she was transferred to PACU in satisfactory condition. EGD FINDINGS: Esophagus: Normal-appearing mucosa was seen in the proximal, mid, and distal esophagus. The diaphragmatic pinch was seen at 39 cm while the gastroesophageal junction was seen at 36 cm denoting a 3 cm hiatal hernia. Otherwise, there was no evidence of erosions, ulcerations, mass, lesions, or active/recent bleeding. Stomach: Normal-appearing mucosa was seen in the gastric cardia, fundus, body, greater curvature, antrum, and incisura. There was no evidence of erosions, ulcerations, mass, lesions, or active/recent bleeding. Duodenum: Normal-appearing mucosa was seen in both the duodenal bulb and second portion of the duodenum. There was no evidence of erosions, ulcerations, mass, lesions, or active/recent bleeding. Multiple random biopsies were taken from the duodenal bulb and second portion for possible evaluation of celiac disease. IMPRESSION: 1. 3 cm hiatal hernia. 2. Otherwise, normal upper endoscopy. 3. No etiology for the patient's diarrhea was seen during this portion of the examination. COLONOSCOPY FINDINGS: Digital rectal exam: Large external hemorrhoids were seen on external examination with mild surrounding erythema. COLON FINDINGS: The scope was advanced to the terminal ileum that was demarcated by an end-to-side ileocolonic anastomosis. The terminal ileum up to 15 to 20 cm past the ileocolonic anastomosis site was normal with no evidence of abnormalities. The ileocolonic anastomosis itself did exhibit some mild increased mucosal erythema and friability with manipulated by the scope. Multiple biopsies were taken from the anastomosis ring itself and placed in a specimen jar for evaluation. Otherwise, a blind colonic pouch was also seen with no abnormalities within that. Normal-appearing mucosa was then seen within the distal ascending, transverse, and descending colons. Multiple biopsies were taken throughout the colon randomly for evaluation of possible microscopic colitis versus infectious etiology. A moderate amount of small and medium-sized diverticula were seen in the sigmoid colon. Normal-appearing mucosa was then seen in the rectum with small internal hemorrhoids seen on rectal retroflexion. IMPRESSION: 1. Surgical change consistent with an end-to-side ileocolonic anastomosis with mild friability of the anastomotic ring itself, status post biopsies. However, there was no evidence of Crohn disease within the terminal ileum. 2. Moderate sigmoid diverticulosis. 3. Small internal and large external hemorrhoids (nonbleeding each). 4. No etiology for the patient's diarrhea was seen during this examination. RECOMMENDATIONS: 1. We would place the patient back on a regular diet with fiber supplementation in order to bulk up her stools and slow down the diarrhea. 2. We would also place the patient on Colestid 1 g b.i.d. for probable bile acid diarrhea. 3. We would continue IV fluids as you are now, given the significant fluid loss associated with increased diarrhea. 4. Replace electrolytes as needed. 5. We will follow up on the biopsy results with further care guided by the pathology report. 6. We would follow up on the stool culture for possible infectious etiology contributing to her current clinical situation. 7. We could consider low-dose loperamide as well, but would attempt the Colestid first. We will continue to follow. Please call with any questions. Job ID: [id number]
--- NOTE | 2019-03-23 17:22 | PDOC.HOSPP ---
- Subjective Encounter Date: 03/23/19 Encounter Time: 17:15 Subjective: f/u for diarrhea, dehydration and multiple electrolyte abnormalities. States feeling better after colonoscopy today but no pathology noted on exam to explain diarrhea. Tx with fiber, Colestid and considering Loperamide. - Objective Vital Signs & Weight: Vital Signs (12 hours) Temp Pulse Resp BP Pulse Ox 03/23/19 14:05 77 20 109/64 100 03/23/19 08:00 97.9 F 73 16 102/52 L 97 Weight Admit Weight 100 lb 1.6 oz Weight 101 lb 14.4 oz I&O: 03/22/19 03/23/19 03/24/19 06:59 06:59 06:59 Intake Total 240 2782 1475 Output Total 320 Balance 240 2462 1475 Result Diagrams: 03/23/19 04:31 03/23/19 04:31 Additional Labs: Microbiology 03/22/19 15:00 Stool Stool Lactoferrin - Final 03/22/19 15:00 Stool C. difficile GDH Antigen & Toxins - Final 02/02/19 23:20 Urine clean catch Urine Culture - Preliminary NO GROWTH AT 24 HOURS 02/02/19 19:32 Venous blood - Right Arm Blood Culture - Preliminary Specimen has been received and culture in progress. No Growth to date. 02/02/19 19:25 Venous blood - Left Arm Blood Culture - Preliminary Specimen has been received and culture in progress. No Growth to date. Laboratory Tests 02/02/19 02/02/19 02/02/19 19:27 19:27 19:27 WBC 16.7 H Hgb 13.0 Plt Count Neutrophils % Neutrophils % (Manual) Band Neuts % (Manual) ESR Westergren Sodium 117 L* Potassium Carbon Dioxide BUN 48 H Creatinine 2.35 H Lactic Acid Calcium 10.9 H Phosphorus Magnesium TSH 3rd Generation 3.3727 02/02/19 02/02/19 02/04/19 19:27 23:41 05:50 WBC 9.1 Hgb 10.8 L Plt Count 494 H Neutrophils % Neutrophils % (Manual) Band Neuts % (Manual) ESR Westergren 59 Sodium 118 L* Potassium Carbon Dioxide BUN 48 H Creatinine 2.32 H Lactic Acid Calcium 10.1 Phosphorus Magnesium TSH 3rd Generation 02/05/19 02/06/19 02/07/19 05:05 05:45 05:12 WBC Hgb Plt Count Neutrophils % Neutrophils % (Manual) Band Neuts % (Manual) ESR Westergren Sodium Potassium Carbon Dioxide 19 L 16 L 20 L BUN Creatinine 1.45 H 1.18 H 1.29 H Lactic Acid Calcium Phosphorus Magnesium [facility] 3rd Generation 02/08/19 02/08/19 02/09/19 05:14 05:14 02:10 WBC 21.0 H Hgb 9.5 L Plt Count 453 H Neutrophils % Neutrophils % (Manual) 74 Band Neuts % (Manual) 12 H ESR Westergren Sodium 132 L Potassium Carbon Dioxide BUN Creatinine 1.55 H Lactic Acid Calcium Phosphorus Magnesium 0.9 L* TSH Generation 02/09/19 02/09/19 03/21/19 02:10 02:10 17:29 WBC Hgb Plt Count Neutrophils % 82.5 H Neutrophils % (Manual) Band Neuts % (Manual) ESR Westergren Sodium 134 L Potassium 2.2 L* Carbon Dioxide 17 L BUN Creatinine 2.48 H Lactic Acid 0.7 Calcium Phosphorus Magnesium 1.3 L [facility] 03/21/19 03/21/19 03/21/19 17:29 17:29 17:29 WBC 12.7 H Hgb 11.0 L Plt Count 426 H Neutrophils % Neutrophils % (Manual) Band Neuts % (Manual) ESR Westergren Sodium Potassium Carbon Dioxide BUN Creatinine Lactic Acid 2.5 H Calcium Phosphorus 1.0 L Magnesium [facility] 03/21/19 03/21/19 03/22/19 20:19 21:23 04:20 WBC Hgb Plt Count Neutrophils % Neutrophils % (Manual) Band Neuts % (Manual) ESR Westergren Sodium 135 L Potassium 2.7 L* 2.6 L* Carbon Dioxide 18 L BUN Creatinine 2.47 H 2.08 H Lactic Acid 0.9 Calcium Phosphorus Magnesium 1.9 [facility] Generation 03/22/19 03/23/19 04:20 04:31 WBC Hgb Plt Count Neutrophils % Neutrophils % (Manual) Band Neuts % (Manual) ESR Westergren Sodium Potassium Carbon Dioxide BUN Creatinine Lactic Acid Calcium Phosphorus 1.4 L 1.3 L Magnesium 1.5 L [facility] Reviewed by me: Yes (Colonoscopy - sigmoid diverticulosis, ext hemorrhoids non-bleeding) EKG Reviewed by me: Yes (Tele - SR) Hospitalist ROS - Medication Medications: Active Medications Generic Name Dose Route Start Last Admin Trade Name Freq PRN Reason Stop Dose Admin Acidophilus 1 tab 03/23/19 09:00 03/23/19 09:26 Floranex PO 1 tab DAILY GEORGI Administration Calcium Carbonate 600 mg 03/23/19 09:00 03/23/19 10:27 Caltrate PO 600 mg DAILY GEORGI Administration Escitalopram Oxalate 20 mg 03/23/19 09:00 03/23/19 09:25 Lexapro PO 20 mg DAILY GEORGI Administration Famotidine 20 mg 03/21/19 21:00 03/22/19 20:06 Pepcid SLOW IVP 20 mg QPM GEORGI Administration Potassium Chloride/Sodium Chloride 1,000 mls @ 125 mls/hr 03/22/19 17:45 15:05 Ns 0.9% W/ 20 Meq Kcl IV 1,000 mls .Q8H GEORGI Administration Magnesium Oxide 400 mg 03/22/19 21:00 03/23/19 09:25 Magnesium Oxide PO 400 mg BID GEORGI Administration Ondansetron HCl 4 mg 03/21/19 20:06 03/22/19 22:16 Zofran IVP 4 mg Q6H PRN Administration Nausea/Vomiting Pantoprazole Sodium 40 mg 03/22/19 21:00 03/23/19 09:25 Protonix PO 40 mg BID GEORGI Administration Pyridoxine HCl 100 mg 03/23/19 09:00 03/23/19 09:25 Vitamin B 6 PO 100 mg DAILY GEORGI Administration Sodium Chloride 10 ml 03/22/19 09:00 03/23/19 09:44 Flush - Normal Saline IVF Not Given Q12HR [facility] - Exam General Appearance: NAD, awake alert Eye: PERRL, anicteric sclera ENT: normocephalic atraumatic, no oropharyngeal lesions Neck: supple, symmetric, no JVD, no thyromegaly, no lymphadenopathy Heart: RRR, no murmur, no gallops, no rubs, normal peripheral pulses Respiratory: CTAB, no wheezes, no rales, no ronchi, normal chest expansion Gastrointestinal: soft, non-tender, non-distended, normal bowel sounds, no palpable masses Extremities: no cyanosis, no clubbing, no edema Skin: normal turgor, no lesions Neurological: cranial nerve grossly intact, no new deficit Musculoskeletal: normal tone, normal strength Psychiatric: normal affect, A&O x 3 Hosp A/P (1) RUT (acute kidney injury) Code(s): N17.9 - ACUTE KIDNEY FAILURE, UNSPECIFIED Status: Acute Plan: Improving with IVF's, avoid nephrotoxic meds and limit contrast exposure (2) Hypokalemia Code(s): E87.6 - HYPOKALEMIA Status: Acute Plan: Improved, continue KCL supplementation (3) Hypomagnesemia Code(s): E83.42 - HYPOMAGNESEMIA Status: Acute Plan: Magnesium supplementation (4) Hyponatremia Code(s): E87.1 - HYPO-OSMOLALITY AND HYPONATREMIA Status: Acute Plan: Resolved (5) Crohn's disease Code(s): K50.90 - CROHN'S DISEASE, UNSPECIFIED, WITHOUT COMPLICATIONS Status: Chronic Qualifiers: Gastrointestinal tract location: small and large intestine Plan: No evidence of Crohn's on colonoscopy (6) Nausea & vomiting Code(s): R11.2 - NAUSEA WITH VOMITING, UNSPECIFIED Status: Acute Qualifiers: Vomiting type: unspecified Vomiting Intractability: intractable Qualified Code(s): R11.2 - Nausea with vomiting, unspecified (7) Severe dehydration Code(s): E86.0 - DEHYDRATION Status: Acute Plan: Resolving, continue IVF's another 24h - Plan social service assistant, out of bed/ambulate, DVT proph w/SCDs Stable currently Continue IVF's + KCL Magnesium Oxide 400mg BID GI planning for Colonoscopy in am Resume home meds AM lab: BMP, CBC, Mg++, PO3 Likely home in 24h
[2019-03-23] MEDS ORDERED: Potassium Chloride 20 MEQ TAB PO SCH (17:30)
[2019-03-23] MEDS: Famotidine/PF 20 mg/2ml Vial SLOW IVP SCH (20:59)
[2019-03-24] MEDS: NS 0.9% w/ 20 MEQ KCL 1,000 ML IV SCH ×3 (03:52→22:06)
[2019-03-24 04:59] LABS: Band 2 % (5-11); Eosinophils 5 % (0-10); Hemoglobin 9.7 g/dL (12.0-16.0); Lymphocytes 42 % (21-51); MDiff Complete? YES; Mean Corpuscular Hemoglobin 33.1 pg (27.0-31.0); Mean Corpuscular Volume 94.7 fL (78.0-98.0); Mean Platelet Volume 7.1 fL (7.4-10.4); Monocytes 6 % (0-10); Neutrophil 45 % (42-75); Platelet Count 374 thou/uL (130-400); Platelet Morphology Comment Appears Adequate; RBC Distribution Width 12.8 % (11.5-14.5); Red Blood Cell (RBC) Count 2.94 mill/uL (4.20-5.40); White Blood Cell (WBC) Count 8.5 thou/uL (4.8-10.8)
[2019-03-24 05:03] LABS: Anion Gap 9 mmol/L (10-20); BUN (Urea Nitrogen) 5 mg/dL (9.8-20.1); Calc. Creatinine Clearance 31 mL/min (70-130); Calcium 7.9 mg/dL (7.8-10.44); Carbon Dioxide 12 mmol/L (22-29); Chloride 122 mmol/L (98-107); Estimated GFR-MDRD 37; Glucose 75 mg/dL (70-105); Magnesium 1.2 mg/dL (1.6-2.6); Sodium 139 mmol/L (136-145)
[2019-03-24 05:07] LABS: Phosphorus 2.6 mg/dL (2.3-4.7)
[2019-03-24] MEDS: pyridOXINE 50 MG (B6) TAB PO SCH (09:47)
[2019-03-24] MEDS: Potassium Chloride 20 MEQ TAB PO SCH ×2 (09:47→18:02)
[2019-03-24] MEDS: Lactinex Tablet PO SCH (09:47)
[2019-03-24] MEDS: Escitalopram Oxalate 20 mg Tablet PO SCH (09:48)
[2019-03-24] MEDS: Magnesium Oxide 400 MG TAB PO SCH ×2 (09:48→20:06)
[2019-03-24] MEDS: Calcium Carbonate 600 MG TAB PO SCH (09:50)
[2019-03-24] MEDS: Ondansetron PF 4 MG/2 ML Vial IVP PRN (10:15)
[2019-03-24 12:59] LABS: Anion Gap 12 mmol/L (10-20); BUN (Urea Nitrogen) 4 mg/dL (9.8-20.1); Calc. Creatinine Clearance 30 mL/min (70-130); Calcium 8.6 mg/dL (7.8-10.44); Carbon Dioxide 11 mmol/L (22-29); Chloride 116 mmol/L (98-107); Estimated GFR-MDRD 35; Glucose 76 mg/dL (70-105); Potassium 3.9 mmol/L (3.5-5.1); Sodium 135 mmol/L (136-145)
--- NOTE | 2019-03-24 13:33 | CT ---
CT abdomen with and without contrast CT pelvis with and without contrast: DATE: 03/24/2019 HISTORY: 53-year-old female with history of Crohn's disease presents with increasing diarrhea. COMPARISON: 03/24/2019. FINDINGS: The previously demonstrated right lower quadrant ileostomy has been reversed. Again noted is the abse nce of the ascending colon. The previously described intraperitoneal fluid collection adjacent to the ileostomy is no longer present. Anastomosis of small bowel loop to the region of mid transverse c olon. The existing entire left hemicolon is filled with fluid down to the rectum. No excessive mural thickening. Multiple sigmoid colonic diverticulosis without diverticulitis. No abscess or pneum operitoneum. Minimal free fluid within pelvic cavity. No small bowel dilation. Cholecystectomy clips in gallbladder fossa. No definite pathology identified involving liver, kidneys, adrenals, panc reas, or spleen. Partially decompressed urinary bladder. Atherosclerotic calcification without aneurysm of abdominal aorta. Lung bases are grossly clear. Percutaneous gastrostomy tube has been rem chantell. IMPRESSION: 1. Old right hemicolectomy. 2. Interval takedown of the right ileostomy. 3. Liquid stool throughout the remaining colon is evidence for diarrhea. 4. Sigmoid colonic diverticulosis without signs of diverticulitis. 5. Interval removal of percutaneous gastrostomy tube. 6. Old cholecystectomy.
[2019-03-24] MEDS ORDERED: Magnesium 2 GM/50 ML 2 GM in Premix Bag 1 BAG IVPB SCH (14:30)
[2019-03-24 15:22] VITALS: BMI 19.9
[2019-03-24 18:35] LABS: Iron 74 ug/dL (50-170); Iron Binding Capacity, Total 240 mcg/dL (265-497)
[2019-03-24 19:00] LABS: Ferritin 103.06 ng/mL (10-291)
[2019-03-24] MEDS: Famotidine/PF 20 mg/2ml Vial SLOW IVP SCH (20:07)
--- NOTE | 2019-03-24 20:28 | PDOC.HOSPP ---
- Subjective Encounter Date: 03/24/19 Encounter Time: 13:00 Subjective: Patient is doing better. She had diarrhea two times last night and four times this morning without any blood. Denies abdominal pain, nausea or vomiting. She wanted to go home today to see her son, however magnesium level very low at 1.2 today. Advised to have this replaced before she goes and then leave in evening however she decided to stay instead. - Objective Vital Signs & Weight: Vital Signs (12 hours) Temp Pulse Resp BP Pulse Ox 03/24/19 15:15 98.4 F 84 19 128/61 100 Weight Admit Weight 100 lb 1.6 oz Weight 101 lb 14.4 oz I&O: 03/23/19 03/24/19 03/25/19 06:59 06:59 06:59 Intake Total 2782 3075 Output Total 320 Balance 2462 3075 Result Diagrams: 03/24/19 04:18 03/24/19 12:32 Hospitalist ROS - Review of Systems Constitutional: denies: fever, chills - Medication Medications: Active Medications Generic Name Dose Route Start Last Admin Trade Name Freq PRN Reason Stop Dose Admin Acidophilus 1 tab 03/23/19 09:00 03/24/19 09:47 Floranex PO 1 tab DAILY GEORGI Administration Calcium Carbonate 600 mg 03/23/19 09:00 03/24/19 09:50 Caltrate PO Not Given DAILY GEORGI Colestipol HCl 1 gm 03/23/19 22:00 03/24/19 20:06 Colestid PO 1 gm BID@1000,2200 GEORGI Administration Escitalopram Oxalate 20 mg 03/23/19 09:00 03/24/19 09:48 Lexapro PO 20 mg DAILY GEORGI Administration Famotidine 20 mg 03/21/19 21:00 03/24/19 20:07 Pepcid SLOW IVP 20 mg QPM GEORGI Administration Potassium Chloride/Sodium Chloride 1,000 mls @ 100 mls/hr 03/23/19 17:28 15:27 Ns 0.9% W/ 20 Meq Kcl IV 1,000 mls .Q10H GEORGI Administration Magnesium Oxide 400 mg 03/22/19 21:00 03/24/19 20:06 Magnesium Oxide PO 400 mg BID GEORGI Administration Ondansetron HCl 4 mg 03/21/19 20:06 03/24/19 10:15 Zofran IVP 4 mg Q6H PRN Administration Nausea/Vomiting Pantoprazole Sodium 40 mg 03/22/19 21:00 03/24/19 20:06 Protonix PO 40 mg BID GEORGI Administration Potassium Chloride 40 meq 03/24/19 08:00 03/24/19 18:02 K-Dur PO 40 meq BID-WM GEORGI Administration Pyridoxine HCl 100 mg 03/23/19 09:00 03/24/19 09:47 Vitamin B 6 PO 100 mg DAILY GEORGI Administration Sodium Chloride 10 ml 03/22/19 09:00 03/24/19 09:50 Flush - Normal Saline IVF 10 ml Q12HR GEORGI Administration - Exam General Appearance: NAD, awake alert Eye: PERRL, anicteric sclera ENT: normocephalic atraumatic, no oropharyngeal lesions Neck: supple, no JVD Heart: RRR, no murmur, no gallops, no rubs Respiratory: CTAB, no wheezes, no rales, no ronchi Gastrointestinal: soft, non-tender, non-distended Extremities: no cyanosis, no clubbing, no edema Hosp A/P (1) Crohns disease Code(s): K50.90 - CROHN'S DISEASE, UNSPECIFIED, WITHOUT COMPLICATIONS Status: Acute (2) Diarrhea Code(s): R19.7 - DIARRHEA, UNSPECIFIED Status: Acute (3) Leukocytosis Code(s): D72.829 - ELEVATED WHITE BLOOD CELL COUNT, UNSPECIFIED Status: Acute (4) Hypomagnesemia Code(s): E83.42 - HYPOMAGNESEMIA Status: Acute (5) Leukocytosis Code(s): D72.829 - ELEVATED WHITE BLOOD CELL COUNT, UNSPECIFIED Status: Acute (6) Hyponatremia Code(s): E87.1 - HYPO-OSMOLALITY AND HYPONATREMIA Status: Acute (7) Diverticulosis Code(s): K57.90 - DVRTCLOS OF INTEST, PART UNSP, W/O PERF OR ABSCESS W/O BLEED Status: Acute (8) RUT (acute kidney injury) Code(s): N17.9 - ACUTE KIDNEY FAILURE, UNSPECIFIED Status: Acute (9) Hiatal hernia Code(s): K44.9 - DIAPHRAGMATIC HERNIA WITHOUT OBSTRUCTION OR GANGRENE Status: Acute - Plan old records reviewed/req, out of bed/ambulate CT abdomen: old right hemicolectomy, interval takedown of right ileostomy, liquid stool throughout colon, sigmoid colonic diverticulosis, percutaneous G tube, old cholecystectomy EGD 03/23: 3 cm hiatal hernia Colonoscopy 03/23: showing no evidence of Crohn's, surgical change consistent with end to side ileocolonic anastomosis with mild friablity of the anastamotic ring, internal and external heomrrhoids This is a 53 year old female with history of Crohn's s/p ileocolonic anastomosis who presented with severe diarrhea Severe diarrhea with hypokalemia with history of Crohn's - CT abdomen no acute findings - colonoscopy findings and EGD as mentioned above, no evidence of acute Crohn' s. Stool cultures negative for infection. - continue colestipol for diarrhea. Added psyllium today - s/p 2 gram IV magnesium today, repeat Mg level 2.1. Sodium level stable at 135 - d/c tomorrow RUT: creatinine increased slightly from 1.46 to 1.53, baseline seemed to be 0.8 on 02/2019. Patient currently hyperchloremic and appears euvolemic therefore likely can f/u creatinine as outpatient Anemia: hemoglobin 9.7, iron studies/B12/folate normal Dispo: d/c tomorrow
--- NOTE | 2019-03-24 22:57 | PRG ---
DATE OF SERVICE: 03/24/2019 REASON FOR CONSULTATION: Diarrhea, history of ileal Crohn's disease. SUBJECTIVE: The patient states that she has had approximately 8 large-volume liquid bowel movements over the course of the last 24 hours with no difficulty with defecation. However, she does not describe any melena or hematochezia associated with these diarrhea like bowel movements. She was noted to have a significant hypomagnesemia on labs today and was subsequently replaced earlier today. Otherwise, she denies any nausea, vomiting, fevers, chills, abdominal pain, hematemesis, dysphagia, or odynophagia. She underwent both EGD and colonoscopy yesterday with no significant findings seen to contribute to her diarrhea. OBJECTIVE: VITAL SIGNS: Temperature 98.4, pulse 84, blood pressure 128/61, respiratory rate 19, saturating 100% on room air. GENERAL: The patient is lying in bed, in no acute distress. Alert and oriented x4. CARDIOVASCULAR: Regular rate and rhythm. RESPIRATORY: Clear to auscultation bilaterally. ABDOMEN: Normoactive bowel sounds. Soft, nontender, nondistended. Well-healed scar in the midline with no evidence of surgical site breakdown or purulence. EXTREMITIES: No cyanosis, clubbing, or edema. LABORATORY DATA: CBC with a white blood cell count of 8.5, hemoglobin 9.7, hematocrit 27.8, platelets 374. Chemistry with a sodium of 139, potassium 4, chloride 122, CO2 of 12, BUN 5, creatinine 1.48, glucose 75. IMAGING DATA: CT of the abdomen and pelvis was obtained on March 24, 2019, which showed reversal of the right lower quadrant ileostomy with lack of intraperitoneal fluid collection adjacent to the ileostomy no longer present. Anastomosis of the small bowel loop to the region of the mid transverse colon was also seen with the entire left hemicolon filled with fluid down to the rectum. However, there was no mural thickening seen within the left colon, but there were multiple sigmoid colonic diverticulosis without evidence of diverticulitis. No small bowel dilatation was seen. Cholecystectomy was also seen with clips in the gallbladder fossa. No other abnormalities were seen. ASSESSMENT AND PLAN: The patient is a 53-year-old female with past medical history of ileal Crohn's disease and ileal adenocarcinoma, status post resection and ileostomy placement, now with reanastomosis, presenting with significant diarrhea. Diarrhea: The patient recently underwent surgery for reanastomosis of the terminal ileum to the transverse colon as part of surgical reconnection after her ileal adenocarcinoma. However, in the postoperative period, she has been having increasing diarrhea characterized as having approximately 6 to 8 large volume liquid bowel movements per day. She ultimately underwent EGD and colonoscopy on March 23, 2019, which did not show any specific abnormalities with no evidence of celiac sprue. Biopsies of the ileocolonic anastomosis showed focal active inflammation, which is consistent with more granulation tissue than anything else. However, random colon biopsies showed focal active inflammation and increased number of eosinophils located throughout the colon, which could be seen with the eosinophilic gastroenteritis or possibly even a microscopic colitis type picture that could further contribute to her diarrhea. Current differential could also include bile acid diarrhea given the fact that she no longer has any ileocecal valve or gallbladder for that matter which could create a chemical irritant as seen on biopsies as well. At this time, the likelihood of active Crohn's disease or a GI neoplasm is highly unlikely. RECOMMENDATIONS: 1. We will continue the patient on a regular diet with fiber supplementation as part of a stool bulking technique. 2. Would continue patient on Colestid 1 g b.i.d. (the patient has only received 1 dose thus far). 3. Would continue IV fluids with electrolyte replacement. 4. If the patient is not responding to bile acid sequestrant, could consider steroids for possible eosinophilic gastroenteritis or microscopic colitis. 5. Could consider low-dose loperamide, but would exhaust other options first. We will continue to follow. Please call with any questions. Job ID: [id number]
[2019-03-25 04:29] LABS: Hemoglobin 9.8 g/dL (12.0-16.0); Mean Corpuscular Hemoglobin 33.3 pg (27.0-31.0); Mean Corpuscular Volume 95.3 fL (78.0-98.0); Platelet Count 346 thou/uL (130-400); RBC Distribution Width 12.7 % (11.5-14.5); Red Blood Cell (RBC) Count 2.94 mill/uL (4.20-5.40); White Blood Cell (WBC) Count 7.7 thou/uL (4.8-10.8)
[2019-03-25 04:52] LABS: Anion Gap 11 mmol/L (10-20); BUN (Urea Nitrogen) Less than 4 mg/dL (9.8-20.1); Calc. Creatinine Clearance 36 mL/min (70-130); Carbon Dioxide 10 mmol/L (22-29); Chloride 120 mmol/L (98-107); Estimated GFR-MDRD 43; Glucose 71 mg/dL (70-105); Magnesium 1.6 mg/dL (1.6-2.6); Phosphorus 2.3 mg/dL (2.3-4.7); Potassium 4.2 mmol/L (3.5-5.1); Sodium 137 mmol/L (136-145)
[2019-03-25] MEDS: NS 0.9% w/ 20 MEQ KCL 1,000 ML IV SCH ×2 (08:43→18:44)
[2019-03-25] MEDS: Magnesium Oxide 400 MG TAB PO SCH ×2 (09:43→20:55)
[2019-03-25] MEDS: Potassium Chloride 20 MEQ TAB PO SCH ×2 (09:43→17:33)
[2019-03-25] MEDS: Lactinex Tablet PO SCH (09:44)
[2019-03-25] MEDS: Escitalopram Oxalate 20 mg Tablet PO SCH (09:44)
[2019-03-25] MEDS: pyridOXINE 50 MG (B6) TAB PO SCH (09:44)
[2019-03-25] MEDS: Calcium Carbonate 600 MG TAB PO SCH (09:54)
[2019-03-25] MEDS: Konsyl 12 gm Packet PO SCH (10:49)
[2019-03-25] MEDS: Sodium Bicarbonate Tab 325 MG TAB PO SCH ×2 (14:30→20:55)
--- NOTE | 2019-03-25 14:54 | PDOC.HOSPP ---
- Subjective Encounter Date: 03/25/19 Encounter Time: 14:52 Subjective: Ms. Kwan was seen today in follow-up of diarrhea following ileostomy. She says she had 2 episodes of diarrhea last night, and two episodes today. She still feels a bit weak. She denies abdominal pain - Objective Vital Signs & Weight: Vital Signs (12 hours) Temp Pulse Resp BP BP Pulse Ox 03/25/19 12:00 98.8 F 82 18 119/56 L 99 03/25/19 08:00 98 03/25/19 07:51 98.9 F 84 16 112/56 L 98 03/25/19 03:57 98.3 F 90 18 111/56 L 98 Weight Admit Weight 100 lb 1.6 oz Weight 123 lb 12.8 oz I&O: 03/24/19 03/25/19 03/26/19 06:59 06:59 06:59 Intake Total 3075 1480 Balance 3075 1480 Result Diagrams: 03/25/19 04:03 03/25/19 04:03 Hospitalist ROS - Medication Medications: Active Medications Generic Name Dose Route Start Last Admin Trade Name Freq PRN Reason Stop Dose Admin Acidophilus 1 tab 03/23/19 09:00 03/25/19 09:44 Floranex PO 1 tab DAILY GEORGI Administration Calcium Carbonate 600 mg 03/23/19 09:00 03/25/19 09:54 Caltrate PO 600 mg DAILY GEORGI Administration Colestipol HCl 1 gm 03/23/19 22:00 03/25/19 10:48 Colestid PO 1 gm BID@1000,2200 GEORGI Administration Escitalopram Oxalate 20 mg 03/23/19 09:00 03/25/19 09:44 Lexapro PO 20 mg DAILY GEORGI Administration Famotidine 20 mg 03/21/19 21:00 03/24/19 20:07 Pepcid SLOW IVP 20 mg QPM GEORGI Administration Potassium Chloride/Sodium Chloride 1,000 mls @ 100 mls/hr 03/23/19 17:28 08:43 Ns 0.9% W/ 20 Meq Kcl IV 1,000 mls .Q10H GEORGI Administration Magnesium Oxide 400 mg 03/22/19 21:00 03/25/19 09:43 Magnesium Oxide PO 400 mg BID GEORGI Administration Ondansetron HCl 4 mg 03/21/19 20:06 03/24/19 10:15 Zofran IVP 4 mg Q6H PRN Administration Nausea/Vomiting Pantoprazole Sodium 40 mg 03/22/19 21:00 03/25/19 09:44 Protonix PO 40 mg BID GEORGI Administration Potassium Chloride 40 meq 03/24/19 08:00 03/25/19 09:43 K-Dur PO 40 meq BID-WM GEORGI Administration Psyllium Hydrophilic Mucilloid 1 pk 03/25/19 09:00 03/25/19 10:49 Konsyl PO Not Given DAILY GEORGI Pyridoxine HCl 100 mg 03/23/19 09:00 03/25/19 09:44 Vitamin B 6 PO 100 mg DAILY GEORGI Administration Sodium Bicarbonate 325 mg 03/25/19 15:00 03/25/19 14:30 Bicarbonate, Sodium PO 325 mg TID GEORGI Administration Sodium Chloride 10 ml 03/22/19 09:00 03/25/19 09:45 Flush - Normal Saline IVF Not Given Q12HR GEORGI - Exam Eye: PERRL, anicteric sclera Heart: RRR, no murmur, no gallops, no rubs, normal peripheral pulses Respiratory: CTAB, no wheezes, no rales, no ronchi, normal chest expansion, no tachypnea, normal percussion Gastrointestinal: soft, non-tender, non-distended, normal bowel sounds, no palpable masses, no hepatomegaly, no splenomegaly Extremities: no cyanosis, no clubbing, no edema Psychiatric: normal affect, normal behavior, A&O x 3 Hosp A/P (1) Diarrhea Code(s): R19.7 - DIARRHEA, UNSPECIFIED Status: Chronic (2) Crohns disease Code(s): K50.90 - CROHN'S DISEASE, UNSPECIFIED, WITHOUT COMPLICATIONS Status: Acute (3) Metabolic acidosis Code(s): E87.2 - ACIDOSIS Status: Acute - Plan * Acute on chronic diarrhea- Post- ileocolonic anastamosis -with severe metabolic acidosis- Will continue Colestid for symptom management * Metabolic acidosis- will add sodium bicarb- re-check BMP in the AM * Crohn's disease- stable * Hypomagnesemia- replaced
[2019-03-25] MEDS: Famotidine/PF 20 mg/2ml Vial SLOW IVP SCH (20:55)
--- NOTE | 2019-03-26 00:54 | PRG ---
DATE OF SERVICE: 03/25/2019 REASON FOR CONSULTATION: Diarrhea, history of ileal Crohn disease. SUBJECTIVE: While on the colestipol regimen, the patient has had a reduction of her bowel movements having approximately 4 liquid bowel movements ([place] 6) over the last 24 hours. She currently denies any nausea, vomiting, fevers, chills, abdominal pain, hematemesis, hematochezia, melena, dysphagia, or odynophagia. OBJECTIVE: VITAL SIGNS: Temperature 98.8, pulse 82, blood pressure 119/56, respiratory rate 18, saturating 99% on room air. GENERAL: The patient was lying in bed, in no acute distress. Alert and oriented x4. CARDIOVASCULAR: Regular rate and rhythm. RESPIRATORY: Clear to auscultation bilaterally. ABDOMEN: Normoactive bowel sounds. Soft, nontender, nondistended. Well-healed scar in the midline. EXTREMITIES: No cyanosis, clubbing, or edema. LABORATORY DATA: CBC with a white blood cell count of 7.7, hemoglobin 9.8, hematocrit 28, platelets 346. Chemistry with a sodium of 137, potassium 4.2, chloride 120, CO2 10, BUN less than 4, creatinine 1.3, glucose 71. IMAGING DATA: No current GI imaging is available for review. ASSESSMENT AND PLAN: The patient is a 53-year-old female with past medical history of ileal Crohn disease with ileal adenocarcinoma, status post resection, requiring ileostomy placement (now with reanastomosis) presenting with diarrhea. Diarrhea: The patient recently underwent surgery for reanastomosis of the terminal ileum secondary to surgical resection of the ileal adenocarcinoma. Prior to reanastomosis, she did have a high output ileostomy and was doing well in the postoperative period after her reanastomosis, but more recently has been having 6 to 8 large volume liquid bowel movements per day. She underwent EGD and colonoscopy on March 23, 2019, which did not show any specific abnormalities, but biopsy showed the presence of an increased number of eosinophils within the colon with focal active inflammation seen with random biopsies taken at that time. At this time, the differential could include bile acid diarrhea, but also eosinophilic gastroenteritis based on the biopsy report. RECOMMENDATIONS: 1. We will continue the patient on a regular diet with fiber supplementation. 2. We would increase the patient on Colestid 2 g b.i.d. in light of possible bile acid diarrhea. 3. We would continue IV fluids with electrolyte replacement. 4. If not responding to bile acid sequestrant, could consider steroids for possible eosinophilic gastroenteritis or microscopic colitis. 5. We could consider low-dose loperamide, but would exhaust the other options first. We will continue to follow. Please call with any questions. Job ID: [id number]
[2019-03-26] MEDS: NS 0.9% w/ 20 MEQ KCL 1,000 ML IV SCH ×2 (05:33→15:59)
[2019-03-26 05:41] LABS: Anion Gap 8 mmol/L (10-20); BUN (Urea Nitrogen) Less than 4 mg/dL (9.8-20.1); Calc. Creatinine Clearance 39 mL/min (70-130); Carbon Dioxide 13 mmol/L (22-29); Chloride 119 mmol/L (98-107); Estimated GFR-MDRD 46; Glucose 71 mg/dL (70-105); Magnesium 1.1 mg/dL (1.6-2.6); Potassium 4.8 mmol/L (3.5-5.1); Sodium 135 mmol/L (136-145)
[2019-03-26] MEDS: pyridOXINE 50 MG (B6) TAB PO SCH (08:48)
[2019-03-26] MEDS: Calcium Carbonate 600 MG TAB PO SCH (08:49)
[2019-03-26] MEDS: Potassium Chloride 20 MEQ TAB PO SCH ×2 (08:49→17:55)
[2019-03-26] MEDS: Magnesium Oxide 400 MG TAB PO SCH ×2 (08:49→20:35)
[2019-03-26] MEDS: Lactinex Tablet PO SCH (08:49)
[2019-03-26] MEDS: Escitalopram Oxalate 20 mg Tablet PO SCH (08:49)
[2019-03-26] MEDS: Sodium Bicarbonate Tab 325 MG TAB PO SCH ×3 (08:49→20:35)
[2019-03-26] MEDS ORDERED: Magnesium 2 GM/50 ML 2 GM in Premix Bag 1 BAG IVPB SCH (09:30)
[2019-03-26] MEDS: Ondansetron PF 4 MG/2 ML Vial IVP PRN (10:58)
[2019-03-26] MEDS: Konsyl 12 gm Packet PO SCH (13:28)
--- NOTE | 2019-03-26 15:24 | PDOC.HOSPP ---
- Subjective Encounter Date: 03/26/19 Encounter Time: 15:23 Subjective: Ms. Kwan was seen today in follow-up of chronic diarrhea. She says she had about 5 loose stools today. She believes the volume has decreased. - Objective Vital Signs & Weight: Vital Signs (12 hours) Temp Pulse Resp BP BP Pulse Ox 03/26/19 12:00 97.1 F L 85 15 117/56 L 98 03/26/19 07:44 98.2 F 93 17 118/58 L 98 Weight Admit Weight 100 lb 1.6 oz Weight 105 lb I&O: 03/25/19 03/26/19 03/27/19 06:59 06:59 06:59 Intake Total 1480 3645 Balance 1480 3645 Result Diagrams: 03/25/19 04:03 03/26/19 04:39 Hospitalist ROS - Medication Medications: Active Medications Generic Name Dose Route Start Last Admin Trade Name Freq PRN Reason Stop Dose Admin Acidophilus 1 tab 03/23/19 09:00 03/26/19 08:49 Floranex PO 1 tab DAILY GEORGI Administration Calcium Carbonate 600 mg 03/23/19 09:00 03/26/19 08:49 Caltrate PO 600 mg DAILY GEORGI Administration Colestipol HCl 2 gm 03/26/19 10:00 03/26/19 10:53 Colestid PO 2 gm BID@1000,2200 GEORGI Administration Escitalopram Oxalate 20 mg 03/23/19 09:00 03/26/19 08:49 Lexapro PO 20 mg DAILY GEORGI Administration Famotidine 20 mg 03/21/19 21:00 03/25/19 20:55 Pepcid SLOW IVP 20 mg QPM GEORGI Administration Potassium Chloride/Sodium Chloride 1,000 mls @ 100 mls/hr 03/23/19 17:28 05:33 Ns 0.9% W/ 20 Meq Kcl IV 1,000 mls .Q10H GEORGI Administration Magnesium Oxide 400 mg 03/22/19 21:00 03/26/19 08:49 Magnesium Oxide PO 400 mg BID GEORGI Administration Ondansetron HCl 4 mg 03/21/19 20:06 03/26/19 10:58 Zofran IVP 4 mg Q6H PRN Administration Nausea/Vomiting Pantoprazole Sodium 40 mg 03/22/19 21:00 03/26/19 08:49 Protonix PO 40 mg BID GEORGI Administration Potassium Chloride 40 meq 03/24/19 08:00 03/26/19 08:49 K-Dur PO 40 meq BID-WM GEORGI Administration Psyllium Hydrophilic Mucilloid 1 pk 03/25/19 09:00 03/26/19 13:28 Konsyl PO Not Given DAILY GEORGI Pyridoxine HCl 100 mg 03/23/19 09:00 03/26/19 08:48 Vitamin B 6 PO 100 mg DAILY GEORGI Administration Sodium Bicarbonate 325 mg 03/25/19 15:00 03/26/19 08:49 Bicarbonate, Sodium PO 325 mg TID GEORGI Administration Sodium Chloride 10 ml 03/22/19 09:00 03/26/19 08:50 Flush - Normal Saline IVF 10 ml Q12HR GEORGI Administration - Exam Eye: PERRL, anicteric sclera Heart: RRR, no murmur, no gallops, no rubs, normal peripheral pulses Respiratory: CTAB, no wheezes, no rales, no ronchi, normal chest expansion Gastrointestinal: soft, non-tender, non-distended, normal bowel sounds, no palpable masses, no hepatomegaly, no splenomegaly Extremities: no cyanosis, no clubbing, no edema Hosp A/P (1) Diarrhea Code(s): R19.7 - DIARRHEA, UNSPECIFIED Status: Chronic (2) Crohns disease Code(s): K50.90 - CROHN'S DISEASE, UNSPECIFIED, WITHOUT COMPLICATIONS Status: Acute (3) Metabolic acidosis Code(s): E87.2 - ACIDOSIS Status: Acute - Plan * Acute on chronic diarrhea- Post- ileocolonic anastamosis -Colestid dose has been increased and steroids have been added * Will nonitor the effect * Metabolic acidosis- improved- will continue sodium bicarb * Crohn's disease- stable * Hypomagnesemia- from GI losses -continue to replace
--- NOTE | 2019-03-26 15:51 | PRG ---
DATE OF SERVICE: 03/26/2019 REASON FOR CONSULTATION: Diarrhea and history of ileal Crohn disease. SUBJECTIVE: Despite the administration of the colestipol regimen with 1 g b.i.d., she continued to have anywhere between 4 and 11 bowel movements over the last 24 hours consisting of more liquid type consistency ([place] six). She did have some mild nausea this morning, but no actual emesis. Otherwise, she denies any fevers, chills, abdominal pain, GI bleeding, dysphagia, or odynophagia. OBJECTIVE: VITAL SIGNS: Temperature 97.1, pulse 85, blood pressure 117/56, respiratory rate 15, and saturating 98% on room air. GENERAL: The patient is lying in bed, in no acute distress. Alert and oriented x4. CARDIOVASCULAR: Regular rate and rhythm. RESPIRATORY: Clear to auscultation bilaterally. ABDOMEN: Normoactive bowel sounds. Soft, nontender, and nondistended. EXTREMITIES: No cyanosis, clubbing, or edema. LABORATORY DATA: Chemistry with a sodium of 135, potassium 4.8, chloride 119, CO2 of 13, BUN less than 4, creatinine 1.21, glucose 71, and magnesium 1.1. IMAGING DATA: No current GI imaging is available for review. 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 Diarrhea: The patient recently underwent reanastomosis from her ileostomy to an ileal colonic anastomosis and in the postoperative period had been doing fine, but more recently had been having anywhere between 4 and 11 larger volume liquid bowel movements per day. She underwent both esophagogastroduodenoscopy and colonoscopy on March 23, 2019, which did not show any specific abnormalities. The biopsy showed an increased number of eosinophils within the colon with focal active inflammation seen on random biopsies. At this point with the addition of the colestipol, she has not shown any significant decrease in her stooling frequency, making bile acid diarrhea less likely. 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 RECOMMENDATIONS: 1. Would continue the patient on a regular diet with fiber supplementation. 2. Continue the patient on the Colestid 2 g b.i.d. in light of possible bile acid diarrhea. 3. Continue with aggressive electrolyte replacement. 4. We will place the patient on budesonide 9 mg daily for possible microscopic colitis. 5. Would hold on low-dose loperamide for now. We will continue to follow. Please call with any questions. Job ID: [id number]
[2019-03-26] MEDS: Famotidine/PF 20 mg/2ml Vial SLOW IVP SCH (20:35)
[2019-03-27 05:17] LABS: Anion Gap 7 mmol/L (10-20); BUN (Urea Nitrogen) Less than 4 mg/dL (9.8-20.1); Calc. Creatinine Clearance 45 mL/min (70-130); Calcium 8.1 mg/dL (7.8-10.44); Carbon Dioxide 15 mmol/L (22-29); Chloride 117 mmol/L (98-107); Estimated GFR-MDRD 53; Glucose 68 mg/dL (70-105); Magnesium 1.7 mg/dL (1.6-2.6); Potassium 6.1 mmol/L (3.5-5.1); Sodium 133 mmol/L (136-145)
[2019-03-27] MEDS: Sodium Chloride 0.9% 1,000 ML IV SCH ×2 (05:56→21:52)
[2019-03-27] MEDS: NS 0.9% w/ 20 MEQ KCL 1,000 ML IV SCH (05:57)
[2019-03-27 08:36] LABS: Anion Gap 9 mmol/L (10-20); BUN (Urea Nitrogen) Less than 4 mg/dL (9.8-20.1); Calc. Creatinine Clearance 45 mL/min (70-130); Calcium 8.3 mg/dL (7.8-10.44); Carbon Dioxide 14 mmol/L (22-29); Chloride 117 mmol/L (98-107); Estimated GFR-MDRD 54; Glucose 73 mg/dL (70-105); Potassium 5.6 mmol/L (3.5-5.1); Sodium 134 mmol/L (136-145)
[2019-03-27] MEDS: Escitalopram Oxalate 20 mg Tablet PO SCH (09:47)
[2019-03-27] MEDS: Lactinex Tablet PO SCH (09:47)
[2019-03-27] MEDS: Calcium Carbonate 600 MG TAB PO SCH (09:47)
[2019-03-27] MEDS: pyridOXINE 50 MG (B6) TAB PO SCH (09:47)
[2019-03-27] MEDS: Magnesium Oxide 400 MG TAB PO SCH (09:48)
[2019-03-27] MEDS: Sodium Bicarbonate Tab 325 MG TAB PO SCH ×3 (09:48→21:48)
[2019-03-27] MEDS: Konsyl 12 gm Packet PO SCH (09:51)
--- NOTE | 2019-03-27 17:25 | PRG ---
DATE OF SERVICE: 03/27/2019 SUBJECTIVE: Ms. Kwan had a dose of Colestid on Wednesday, and then on yesterday evening, she had a dose of Entocort. She had 1 loose stool last night and has had 1 this morning when I rounded on her at about 11. OBJECTIVE: VITAL SIGNS: Temperature 97, pulse 80, blood pressure 138/62. LUNGS: Clear. HEART: Regular rate and rhythm without clicks, rubs, or murmurs. ABDOMEN: Soft and nontender. LABORATORY DATA: No CBC today. No peripheral eosinophilia. BUN and creatinine are 4 and 1.06. Potassium is 5.6. Recent TB screen negative. ASSESSMENT: Diarrhea. There appeared to be no active colitis or ileitis on endoscopies with Dr. Miller. Random biopsy of the colon showed eosinophils; however, small bowel biopsy showed no eosinophils. Ileocolonic anastomosis had some areas of eosinophils and edema. The patient has had negative Entamoeba histolytica, Giardia. RECOMMENDATIONS: 1. Check histoplasmosis. She has had chronic diarrhea at home. We will go ahead and check Cyclospora as well. Agree with trial of steroids. I will actually change it to IV steroids . 2. Hold IV fluids go home with steroid taper and then further evaluate status for Humira with drug levels and antibody levels as an outpatient. Job ID: [id number]
[2019-03-27] MEDS: methylPREDNISolone Sod Succ 40 MG VIAL IVP SCH (17:32)
--- NOTE | 2019-03-27 18:17 | PDOC.HOSPP ---
- Subjective Encounter Date: 03/27/19 Encounter Time: 14:00 Subjective: Ms. Kwan was seen today in follow-up of chronic diarrhea. She says she had 2 loose stools today. She denies any abdominal pain. - Objective Vital Signs & Weight: Vital Signs (12 hours) Temp Pulse Resp BP BP Pulse Ox 03/27/19 15:55 97.7 F 80 16 138/62 99 03/27/19 11:01 98.3 F 82 16 148/65 H 96 03/27/19 07:40 97.8 F 76 16 140/73 98 Weight Admit Weight 100 lb 1.6 oz Weight 104 lb 3.2 oz I&O: 03/26/19 03/27/19 03/28/19 06:59 06:59 06:59 Intake Total 3645 1552 Balance 3645 1552 Result Diagrams: 03/25/19 04:03 03/27/19 08:09 Hospitalist ROS - Medication Medications: Active Medications Generic Name Dose Route Start Last Admin Trade Name Freq PRN Reason Stop Dose Admin Acidophilus 1 tab 03/23/19 09:00 03/27/19 09:47 Floranex PO 1 tab DAILY GEORGI Administration Budesonide 9 mg 03/27/19 09:00 03/27/19 09:57 Entocort Ec PO 9 mg QAM GEORGI Administration Calcium Carbonate 600 mg 03/23/19 09:00 03/27/19 09:47 Caltrate PO 600 mg DAILY GEORGI Administration Colestipol HCl 2 gm 03/26/19 10:00 03/27/19 10:59 Colestid PO 2 gm BID@1000,2200 GEORGI Administration Escitalopram Oxalate 20 mg 03/23/19 09:00 03/27/19 09:47 Lexapro PO 20 mg DAILY GEORGI Administration Famotidine 20 mg 03/21/19 21:00 03/26/19 20:35 Pepcid SLOW IVP 20 mg QPM GEORGI Administration Sodium Chloride 1,000 mls @ 50 mls/hr 03/27/19 05:45 03/27/19 05:56 Normal Saline 0.9% IV 1,000 mls .Q20H GEORGI Administration Methylprednisolone Sodium Succinate 40 mg 03/27/19 18:00 03/27/19 17:32 Solu-Medrol IVP 40 mg Q6HR GEORGI Administration Ondansetron HCl 4 mg 03/21/19 20:06 03/26/19 10:58 Zofran IVP 4 mg Q6H PRN Administration Nausea/Vomiting Pantoprazole Sodium 40 mg 03/22/19 21:00 03/27/19 09:48 Protonix PO 40 mg BID GEORGI Administration Psyllium Hydrophilic Mucilloid 1 pk 03/25/19 09:00 03/26/19 13:28 Konsyl PO Not Given DAILY GEORGI Pyridoxine HCl 100 mg 03/23/19 09:00 03/27/19 09:47 Vitamin B 6 PO 100 mg DAILY GEORGI Administration Sodium Bicarbonate 325 mg 03/25/19 15:00 03/27/19 15:58 Bicarbonate, Sodium PO 325 mg TID GEORGI Administration Sodium Chloride 10 ml 03/22/19 09:00 03/27/19 09:58 Flush - Normal Saline IVF Not Given Q12HR GEORGI - Exam Eye: PERRL, anicteric sclera Heart: RRR, no murmur, no gallops, no rubs, normal peripheral pulses Respiratory: CTAB, no wheezes, no rales, no ronchi, normal chest expansion, no tachypnea, normal percussion Gastrointestinal: soft, non-tender, non-distended, normal bowel sounds, no palpable masses, no hepatomegaly, no splenomegaly Extremities: no cyanosis, no clubbing, no edema Hosp A/P (1) Diarrhea Code(s): R19.7 - DIARRHEA, UNSPECIFIED Status: Chronic (2) Crohns disease Code(s): K50.90 - CROHN'S DISEASE, UNSPECIFIED, WITHOUT COMPLICATIONS Status: Acute (3) Metabolic acidosis Code(s): E87.2 - ACIDOSIS Status: Acute - Plan * Acute on chronic diarrhea- Post- ileocolonic anastamosis -Colestid dose has been increased and steroids have been added * She is improving , with less frequency and volume of her stools * Metabolic acidosis- improved- will continue sodium bicarb * Crohn's disease-this may be contributing to her diarrhea- discussed with Dr. Cespedes * Hyperkalemia- will discontinue potassium replacement- re-check her levels tomorrow
[2019-03-27] MEDS: Famotidine/PF 20 mg/2ml Vial SLOW IVP SCH (21:49)
[2019-03-28] MEDS: methylPREDNISolone Sod Succ 40 MG VIAL IVP SCH ×3 (01:18→11:25)
[2019-03-28 05:32] LABS: Anion Gap 13 mmol/L (10-20); BUN (Urea Nitrogen) Less than 4 mg/dL (9.8-20.1); Calc. Creatinine Clearance 47 mL/min (70-130); Calcium 8.4 mg/dL (7.8-10.44); Carbon Dioxide 10 mmol/L (22-29); Chloride 116 mmol/L (98-107); Estimated GFR-MDRD 58; Glucose 110 mg/dL (70-105); Potassium 4.8 mmol/L (3.5-5.1); Sodium 134 mmol/L (136-145)
[2019-03-28] MEDS: Lactinex Tablet PO SCH (08:55)
[2019-03-28] MEDS: Calcium Carbonate 600 MG TAB PO SCH (08:55)
[2019-03-28] MEDS: Escitalopram Oxalate 20 mg Tablet PO SCH (08:56)
[2019-03-28] MEDS: pyridOXINE 50 MG (B6) TAB PO SCH (08:56)
[2019-03-28] MEDS: Sodium Bicarbonate Tab 325 MG TAB PO SCH (08:56)
[2019-03-28] MEDS: Konsyl 12 gm Packet PO SCH ×2 (08:59→09:11)
--- NOTE | 2019-03-28 11:20 | PDOC.HOSPP ---
- Subjective Encounter Date: 03/28/19 Encounter Time: 11:18 Subjective: Ms. Kwan was seen today in follow-up of chronic diarrhea. She says she has only had two small loose stools today. - Objective Vital Signs & Weight: Vital Signs (12 hours) Temp Pulse Resp BP Pulse Ox 03/28/19 07:02 98.3 F 71 20 127/58 L 97 03/28/19 03:10 98.3 F 75 18 118/59 L 96 Weight Admit Weight 100 lb 1.6 oz Weight 108 lb 12.8 oz I&O: 03/27/19 03/28/19 03/29/19 06:59 06:59 06:59 Intake Total 1552 2980 Balance 1552 2980 Result Diagrams: 03/25/19 04:03 03/28/19 05:06 Hospitalist ROS - Medication Medications: Active Medications Generic Name Dose Route Start Last Admin Trade Name Freq PRN Reason Stop Dose Admin Acidophilus 1 tab 03/23/19 09:00 03/28/19 08:55 Floranex PO 1 tab DAILY GEORGI Administration Budesonide 9 mg 03/27/19 09:00 03/28/19 08:57 Entocort Ec PO 9 mg QAM GEORGI Administration Calcium Carbonate 600 mg 03/23/19 09:00 03/28/19 08:55 Caltrate PO 600 mg DAILY GEORGI Administration Colestipol HCl 2 gm 03/26/19 10:00 03/28/19 09:05 Colestid PO 2 gm BID@1000,2200 GEORGI Administration Escitalopram Oxalate 20 mg 03/23/19 09:00 03/28/19 08:56 Lexapro PO 20 mg DAILY GEORGI Administration Famotidine 20 mg 03/21/19 21:00 03/27/19 21:49 Pepcid SLOW IVP 20 mg QPM GEORGI Administration Methylprednisolone Sodium Succinate 40 mg 03/27/19 18:00 03/28/19 06:05 Solu-Medrol IVP 40 mg Q6HR GEORGI Administration Ondansetron HCl 4 mg 03/21/19 20:06 03/26/19 10:58 Zofran IVP 4 mg Q6H PRN Administration Nausea/Vomiting Pantoprazole Sodium 40 mg 03/22/19 21:00 03/28/19 08:56 Protonix PO 40 mg BID GEORGI Administration Psyllium Hydrophilic Mucilloid 1 pk 03/25/19 09:00 03/28/19 09:11 Konsyl PO Not Given DAILY [facility] Pyridoxine HCl 100 mg 03/23/19 09:00 03/28/19 08:56 Vitamin B 6 PO 100 mg DAILY GEORGI Administration Sodium Bicarbonate 325 mg 03/25/19 15:00 03/28/19 08:56 Bicarbonate, Sodium PO 325 mg TID GEORGI Administration Sodium Chloride 10 ml 03/22/19 09:00 03/28/19 08:59 Flush - Normal Saline IVF Not Given Q12HR GEORGI - Exam Eye: PERRL, anicteric sclera Heart: RRR, no murmur, no gallops, no rubs, normal peripheral pulses Respiratory: CTAB, no wheezes, no rales, no ronchi, normal chest expansion Gastrointestinal: soft, non-tender, non-distended, normal bowel sounds, no palpable masses, no hepatomegaly, no splenomegaly Extremities: no cyanosis, no clubbing Hosp A/P (1) Diarrhea Code(s): R19.7 - DIARRHEA, UNSPECIFIED Status: Chronic (2) Crohns disease Code(s): K50.90 - CROHN'S DISEASE, UNSPECIFIED, WITHOUT COMPLICATIONS Status: Acute (3) Metabolic acidosis Code(s): E87.2 - ACIDOSIS Status: Acute - Plan * Acute on chronic diarrhea- Post- ileocolonic anastamosis - * She is improving , with less frequency and volume of her stools * Crohn's disease-this may be contributing to her diarrhea- discussed with Dr. Cespedes * Hyperkalemia- resolved
[2019-03-28 11:24] VITALS: BP 130/60; TEMP 98.5
--- NOTE | 2019-03-29 02:26 | DIS ---
DATE OF ADMISSION: 03/21/2019 DATE OF DISCHARGE: 03/28/2019 PRIMARY CARE PHYSICIAN: Dr. Mandi Kirk. DISCHARGE DISPOSITION: Home. PRIMARY DISCHARGE DIAGNOSES: 1. Acute on chronic diarrhea. 2. Crohn disease. 3. History of ileocecectomy and status post ileocolonic anastomosis. DISCHARGE MEDICATIONS: Include: 1. Sodium bicarbonate 325 mg t.i.d. 2. Prednisone taper. 3. Lexapro 20 mg daily. 4. Colestid 1 g twice a day. 5. Budesonide 9 mg daily. 6. Vitamin D 600 mg daily. 7. Pantoprazole 40 mg twice a day. 8. Zofran 4 mg twice a day as needed. 9. Methylcellulose 500 mg daily. 10. Calcium carbonate 600 mg daily. 11. Humira 40 mg subcu as directed. IMAGING AND PROCEDURES: The patient had EGD, colonoscopy and biopsy. EGD finding showed normal mucosa in the proximal mid and distal esophagus. There was a diaphragmatic pinch at the GE junction. Normal-appearing mucosa in the stomach and the duodenum was also normal in appearance. In the colon, there was a change consistent with an end-to-side ileocolonic anastomosis with some mild friability of the anastomotic ring status post biopsies, but there was no evidence of Crohn disease within the terminal ileum. There was moderate sigmoid diverticulosis. No evidence of etiology of the diarrhea. CODE STATUS: Full code. ALLERGIES: TO MORPHINE, FENTANYL, CIPRO AND HYDROCODONE. HOSPITAL COURSE: Ms. Kwan is a pleasant 53-year-old female, who presented to the emergency room with severe diarrhea. She was also found to have significant electrolyte abnormalities with hypokalemia and hypomagnesemia. She was brought and admitted to the hospital. Stool studies were done, which were negative. Her celery packer was consulted. There was no evidence of active Crohn disease. She was initially given a trial of Colestid, which did not significantly slow the diarrhea. Then, this was followed by starting steroids. She did seem to improve with the addition of steroids with decrease in frequency and volume of her stools. Her electrolytes were corrected and she was subsequently able to be discharged home with close outpatient followup. The plan would be to get a BMP in the next week and follow up with her primary care physician in approximately 1 week as well. Job ID: [id number]
== END 2019-03-28 14:44 | disposition home or self-care (01) | DRG 683 ==
LOC: ERS 16:14 → 2NO 17:11
PROVIDERS: ADMIT Internal Medicine; ATTEND Internal Medicine
PROC: 0DBB8ZX Excision of Ileum, Via Natural or Artificial Opening Endoscopic, Diagnostic (ICD-10-PCS; principal; 2019-03-23)
PROC: 0DJ08ZZ Inspection of Upper Intestinal Tract, Via Natural or Artificial Opening Endoscopic (ICD-10-PCS; 2019-03-23)
PROC: 0DBE8ZX Excision of Large Intestine, Via Natural or Artificial Opening Endoscopic, Diagnostic (ICD-10-PCS; 2019-03-23)
DX: N17.9 Acute kidney failure, unspecified (principal); K50.90 Crohn's disease, unspecified, without complications; E87.2 Acidosis; F32.9 Major depressive disorder, single episode, unspecified; E83.42 Hypomagnesemia; E87.6 Hypokalemia; E86.0 Dehydration; E83.39 Other disorders of phosphorus metabolism; K44.9 Diaphragmatic hernia without obstruction or gangrene; K57.30 Diverticulosis of large intestine without perforation or abscess without bleeding; K64.4 Residual hemorrhoidal skin tags; Z90.49 Acquired absence of other specified parts of digestive tract; Z88.1 Allergy status to other antibiotic agents; Z88.5 Allergy status to narcotic agent; Z88.8 Allergy status to other drugs, medicaments and biological substances; Z87.891 Personal history of nicotine dependence; Z79.51 Long term (current) use of inhaled steroids; Z79.899 Other long term (current) drug therapy; Z85.038 Personal history of other malignant neoplasm of large intestine; K64.8 Other hemorrhoids; K52.9 Noninfective gastroenteritis and colitis, unspecified; Z93.2 Ileostomy status; M19.90 Unspecified osteoarthritis, unspecified site; J43.9 Emphysema, unspecified; D64.9 Anemia, unspecified
CPT/HCPCS: 36415; 74178; 80048; 80053; 82607; 82728; 82746; 83540; 83550; 83605; 83630; 83735; 84100; 84484; 85007; 85025; 85027; 87015; 87045; 87046; 87206; 87324; 87328; 87329; 87427; 87449; 88305; 96365; J2405; J2920; J3475; J3480; J7050; Q9967; S0028

== ENCOUNTER 2020-12-03 08:30 | Outpatient (CLI) | payer BC ==
[2020-12-03] MEDS ORDERED: Iopamidol-370 76% 500 ML 1 ML ONE (09:28)
== END 2020-12-03 08:31 | disposition home or self-care (01) ==
LOC: BICCT 08:30
PROVIDERS: ATTEND Internal Medicine Gastroenterology
DX: C17.2 Malignant neoplasm of ileum (principal); K50.90 Crohn's disease, unspecified, without complications; R97.0 Elevated carcinoembryonic antigen [CEA]
CPT/HCPCS: 71260; 74177; Q9967

== ENCOUNTER 2021-09-18 08:01 | Outpatient (CLI) | payer BC | END 2021-09-18 08:02 | disposition home or self-care (01) | LOC: BICCT 08:01 | PROVIDERS: ATTEND Internal Medicine Gastroenterology | DX: R97.0 Elevated carcinoembryonic antigen [CEA] (principal); K76.0 Fatty (change of) liver, not elsewhere classified; Z90.49 Acquired absence of other specified parts of digestive tract; Z85.068 Personal history of other malignant neoplasm of small intestine | CPT/HCPCS: 71260; 74177; 82565 ==